=== PATIENT | male | born 1965 | race Caucasian/White ===

== ENCOUNTER 2019-05-27 10:03 | Inpatient (IN) | payer SELFPAY ==
[2019-05-27] VITALS (7 sets, daily range): BP systolic 124–138; BP diastolic 72–89; PULSE 102–136; RESP 18–24; TEMP 37.1–38.7; O2SAT 92–96; BMI 40.8; BMI 157.1
--- NOTE | 2019-05-27 10:12 | XRR_ITS ---
PROCEDURE INFORMATION: Exam: XR Chest, 1 View Exam date and time: 05/27/2019 11:00 AM Age: 54 years old Clinical indication: Cough and shortness of breath TECHNIQUE: Imaging protocol: XR of the chest Views: 1 view. COMPARISON: XR CHEST 05/06/2017 9:57 PM FINDINGS: Lungs: There is bilateral central bronchial wall thickening and haziness. Prominence of the interstitial markings in both lungs. No focal peripheral lung consolidation, air bronchogram formation, or silhouette sign. Pleural space: No pleural effusion or pneumothorax. Heart/Mediastinum: The cardiac silhouette is not enlarged. The mediastinal contours are normal. Bones/joints: No acute osseous abnormality. XR/XR chest 1V portable [id number] IMPRESSION: Bronchial/interstitial edema or inflammation.
--- NOTE | 2019-05-27 10:12 | ECG_ITS ---
Measurements Intervals [place] Rate: 103 P: 36 KS: 173 QRS: -35 QRSD: 94 T: 51 QT: 393 QTc: 515 SINUS TACHYCARDIA WITH FREQUENT SUPRAVENTRICULAR PREMATURE COMPLEXES MARKED LEFT AXIS DEVIATION [QRS AXIS < -30] MODERATE VOLTAGE CRITERIA FOR LVH, CONSIDER NORMAL VARIANT [MEETS CRITERIA IN ONE OF: R(aVL), S(V1), R(V5), R(V5/V6)+S(V1)] NONSPECIFIC T-WAVE ABNORMALITY Compared to ECG 05/06/2017 19:50:59 T-wave abnormality now present Sinus rhythm no longer present Electronically Signed On 05-27-2019 18:33:32 [employer] SURGE[employer] by Colin Johnson M.[email or web address]
[2019-05-27 10:32] LABS: Basophils # 0.1 10^3/uL (0.0-0.1); Basophils % 0.9 %; Eosinophils # 0.2 10^3/uL (0.0-0.8); Eosinophils % 2.6 %; Hematocrit 34.2 % (42.0-52.0); Hemoglobin 10.1 g/dL (11.7-16.6); Lymphocytes # 0.9 10^3/uL (0.8-4.8); Lymphocytes % 15.5 %; Mean Corpuscular HGB Conc 29.5 g/dL (30.0-36.0); Mean Corpuscular Hemoglobin 22.4 pg (28.0-34.0); Mean Corpuscular Volume 75.8 fL (80-94); Mean Platelet Volume 11.8 fL (7.4-10.4); Monocytes # 0.5 10^3/uL (0.2-0.9); Monocytes % 7.7 %; Neutrophils # 4.2 10^3/uL (1.8-7.7); Nucleated Red Blood Cells % 0 %; Platelet Count 133 10^3/cmm (130-400); Red Blood Count 4.51 10^6/uL (4.1-5.3); Red Cell Distribution Width 18.8 % (12.1-15.1); White Blood Count 5.8 10^3/uL (4.0-10.0)
--- NOTE | 2019-05-27 10:37 | ED_ITS ---
Entered by Rob Burks, acting as scribe for Dell Harris DO May 27, 2019 10:03 HPI - Chest Pain General: Chief Complaint: Chest Pain Stated Complaint: SOB,Chest pressure Time Seen by Provider: 05/27/19 10:46 History of Present Illness: HPI narrative: 54 yo male presents with chest pain. Pt states that he leg spasms along with the chest pain. Pt states that he feels slightly short of breath. Pt states that he has a stress test scheduled for Saturday. 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 Pt states that the Physician failed him because the Physician thinks that he has blocked arteries. Pt states that he has been under a lot of stress for the past month. MD complaint: chest pain Associated symptoms: Reports dyspnea; Deny abdominal pain, fever(s), nausea, palpitations, syncope or vomiting Review of Systems Const: Reports: malaise; Denies: fever, chills, body aches, fatigue or night sweats Eyes: Denies: change in vision or blurry vision ENMT: Denies: throat pain, oral sores/lesions, dental pain, nasal discharge or nasal congestion Card: Reports: chest pain; Denies: palpitations, irregular heart rhythm, edema, syncope, shortness of breath on exertion, shortness of breath when lying down or leg pain with exertion Resp: Reports: shortness of breath; Denies: productive cough, non-productive cough or wheezing GI: Denies: abdominal pain, nausea, vomiting, vomiting blood, coffee grounds in vomit, difficulty swallowing, heartburn/indigestion, diarrhea, constipation, cramping, blood in stool or black tarry stool : Denies: flank pain, difficulty urinating, painful urination, urinary frequency, urinary urgency, urinary incontinence or blood in urine Musc: Denies: neck pain, back pain, extremity pain, extremity swelling, joint pain or joint swelling Skin/Breast: Denies: rash, itching or redness Neuro: Denies: headache, numbness in extremities, weakness in extremities, changes in sensation, lack of coordination, difficulty walking, frequent falls, dizziness, vertigo or confusion Psych: Denies: anxiety, depression, loss of interest, visual hallucinations, auditory hallucinations, suicidal ideation or homicidal ideation Endo: Denies: excessive urination, excessive thirst, tired all the time or cold intolerance Max/Lymph: Denies: easy bruising, easy bleeding, petechiae, enlarged lymph nodes or tender lymph nodes PFSH ED PFSH: Statuses (acute, chronic, etc) shown below reflect problem list status as previously entered and may not be historically accurate Medical History (Updated 06/01/19 @ 10:05 by Dell Harris DO) Angioedema (Acute) Diabetes (Acute) Hyperlipidemia (Acute) Hypertension (Acute) Psoriasis (Acute) Surgical History H/O knee surgery (Acute) Hx of cardiac cath (Acute) Social History Smoking and tobacco status: never smoked Physical Exam Const: COMMON NORMALS: average body habitus, oriented x3 and alert GENERAL APPEARANCE: cooperative, comfortable, well kempt and well developed NUTRITIONAL APPEARANCE: obese ORIENTATION/CONSCIOUSNESS: Yes awake, Yes oriented to person and Yes oriented to place HENMT: COMMON NORMALS: normocephalic, head/scalp atraumatic, EAC's normal, TM's normal bilaterally, external nose normal, moist oral mucous membranes and oropharynx normal HEAD & SCALP: normocephalic and atraumatic NOSE: external nose normal EXTERNAL AUDITORY CANAL: EAC's normal TYMPANIC MEMBRANE: TM's normal bilaterally MOUTH: oral and palatal mucosa normal, lip normal and tongue normal THROAT: posterior oropharynx normal and tonsils normal Eye: COMMON NORMALS: PERRL, EOMs intact bilaterally, conjunctivae normal and no scleral icterus CONJUNCTIVA: Yes conjunctivae normal PUPIL: Yes PERRL Neck/C-Spine: COMMON NORMALS: full ROM, no lymphadenopathy, supple, no meningeal signs and thyroid normal THYROID: thyroid normal and asymmetrical Lymph: LYMPHATIC: no lymphadenopathy noted Resp: COMMON NORMALS: normal respiratory effort, no retractions, no use of accessory muscles and clear to auscultation bilaterally AUSCULTATION: clear to auscultation bilaterally Cardio: COMMON NORMALS: regular rate and regular rhythm RATE: regular rate RHYTHM: regular rhythm HEART SOUNDS: no murmurs GI: COMMON NORMALS: normal to inspection, nondistended, normoactive bowel sounds, soft to palpation and no hepatosplenomegaly PALPATION: Yes soft and Yes no hepatosplenomegaly : COMMON NORMALS: Yes no CVA tenderness BLADDER/KIDNEY EXAM: Yes no CVA tenderness Back/Pelvis: COMMON NORMALS: no CVA tenderness LUMBAR SPINE/LOWER BACK: Yes normal to inspection Extremity: COMMON NORMALS: no clubbing, cyanosis or edema, no calf tenderness and no pedal edema Neuro: COMMON NORMALS: oriented x3 SENSORIUM/ORIENTATION: Yes alert, Yes oriented to person and Yes oriented to place MENINGEAL SIGNS: Yes no m eningeal signs Psych: APPEARANCE: Yes well kempt Skin: COMMON NORMALS: no rashes or lesions noted and skin turgor normal GENERAL SKIN EXAM: no rashes or lesions noted and turgor normal Course ED course: Initially plan admitting the patient because of his heart score being high and with his episodes of chest discomfort. We were planning to admit him for rule out. While he was awaiting a room to be transferred to on [facility] he went into A. fib with RVR and was started on Cardizem. I called Dr. Wayne back and informed her. I suspect some of these episodes are due to this intermittent atrial fibrillation will admit him continue the rule out but will also need further evaluation medication for rate control. Vital Signs: Vital signs: Vital Signs Temperature 98.9 F 05/30/19 07:08 Pulse Rate 77 05/30/19 09:45 Respiratory Rate 18 05/30/19 09:09 Blood Pressure 138/80 05/30/19 12:55 Pulse Oximetry 93 05/30/19 09:49 MDM - Chest Pain Lab Data: Labs: Lab Results 05/27/19 05/27/19 05/27/19 Range/Units 10:24 10:24 10:24 WBC 5.8 (4.0-10.0) 10^3/ uL RBC 4.51 (4.1-5.3) 10^6/u L Hgb 10.1 L (11.7-16.6) g/dL Hct 34.2 L (42.0-52.0) % MCV 75.8 L (80-94) fL MCH 22.4 L (28.0-34.0) pg MCHC 29.5 L (30.0-36.0) g/dL RDW 18.8 H (12.1-15.1) % Plt Count 133 (130-400) 10^3/c mm MPV 11.8 H (7.4-10.4) fL Neut % (Auto) 73.0 % Lymph % (Auto) 15.5 % Dorado % (Auto) 7.7 % Eos % (Auto) 2.6 % Baso % (Auto) 0.9 % Neut # (Auto) 4.2 (1.8-7.7) 10^3/u L Lymph # (Auto) 0.9 (0.8-4.8) 10^3/u L [place] # (Auto) 0.5 (0.2-0.9) 10^3/u L Eos # (Auto) 0.2 (0.0-0.8) 10^3/u L Baso # (Auto) 0.1 (0.0-0.1) 10^3/u L Nucleated RBC % (a uto) 0 % Nucleated RBCs # 0.0 /100WBC Sodium 140 (136-145) mmol/L Potassium 4.0 (3.5-5.1) mmol/L Chloride 101 (98-107) mmol/L Carbon Dioxide 28 (22-29) mmol/L Anion Gap 15.0 (5-19) BUN 13 (6-20) mg/dL Creatinine 0.8 (0.7-1.2) mg/dL GFR Calculation 101.1 (90-130) mL/min Glucose 136 H (74-109) mg/dL POC Glucose (70-110) mg/dL Estimat Average Gl ucose Hemoglobin A1c (4.0-6.0) % Calcium 8.7 (8.5-10.5) mg/dL Total Bilirubin 0.6 (0.15-1.2) mg/dL AST 42 H (0-40) U/L ALT 25 (0-41) U/L Alkaline Phosphata se 189 H (40-130) IU/L Troponin I 6 Hour (0-15) ng/L Troponin I Hi Sens Del (0-12) ng/L Troponin T Baselin e 16 H (0-15) ng/mL Troponin T 120 Min lummi (0-15) ng/mL Delta Troponin T (0-10) ABS# NT-Pro-B Natriuret Pep (0-125) pg/mL Total Protein 7.6 (6.6-8.7) g/dL Albumin 3.5 (3.5-5.2) g/dL Globulin 4.1 (1.3-4.6) g/dL Triglycerides (0-150) mg/dL Cholesterol (0-200) mg/dL LDL Cholesterol, C alc (50-129) mg/dL HDL Cholesterol (60-100) mg/dL LDL/HDL Ratio (0.00-3.22) RATI O Cholesterol/HDL Ra tom (1.0-5.00) mg/dL TSH (0.27-4.20) uIU/ mL Urine Color (Yellow) Urine Appearance (CLEAR) Urine pH (5-7) Ur Specific Gravit y (1.005-1.030) Urine Protein (Negative) Urine Glucose (UA) (Normal) Urine Ketones (Negative) Urine Occult Blood (Negative) Urine Nitrate (Negative) Urine Bilirubin (NEGATIVE) Urine Urobilinogen (Negative) mg/dL Ur Leukocyte Jaye ase (Negative) Urine RBC (0-2) /hpf Urine WBC (0-5) /hpf Ur Squamous Epith Cells (0-5) Urine Bacteria (NONE) Urine Opiates Scre en (Negative) ng/mL Ur Barbiturates Sc reen (Negative) ng/mL Ur Phencyclidine S crn (Negative) ng/mL Ur Amphetamines Sc reen (Negative) ng/mL U Benzodiazepines Scrn (Negative) ng/mL Urine Cocaine Scre en (Negative) ng/mL U Marijuana (THC) Screen (Negative) ng/mL Ethyl Alcohol (0-10) mg/dL Hepatitis A IgM Ab (Nonreactive) Hep Bs Antigen (Nonreactive) Hep Bs Antibody (0-8.5) Hep B Core Total A b (Nonreactive) Hepatitis C Antibo dy (Nonreactive) HIV 1&2 Ab & HIV 1 Ag (Non-Reactiv) HIV 1&2 Antibody (Non-Reactiv) Influenza Type A A g (Negative) POC Influenza B Ag (Negative) 05/27/19 05/27/19 05/27/19 Range/Units 10:24 10:24 10:24 WBC (4.0-10.0) 10^3/ uL RBC (4.1-5.3) 10^6/u L Hgb (11.7-16.6) g/dL Hct (42.0-52.0) % MCV (80-94) fL MCH (28.0-34.0) pg MCHC (30.0-36.0) g/dL RDW (12.1-15.1) % Plt Count (130-400) 10^3/c mm MPV (7.4-10.4) fL Neut % (Auto) % Lymph % (Auto) % [place] % (Auto) % Eos % (Auto) % Baso % (Auto) % Neut # (Auto) (1.8-7.7) 10^3/u L Lymph # (Auto) (0.8-4.8) 10^3/u L [place] # (Auto) (0.2-0.9) 10^3/u L Eos # (Auto) (0.0-0.8) 10^3/u L Baso # (Auto) (0.0-0.1) 10^3/u L Nucleated RBC % (a uto) % Nucleated RBCs # /100WBC Sodium (136-145) mmol/L Potassium (3.5-5.1) mmol/L Chloride (98-107) mmol/L Carbon Dioxide (22-29) mmol/L Anion Gap (5-19) BUN (6-20) mg/dL Creatinine (0.7-1.2) mg/dL GFR Calculation (90-130) mL/min Glucose (74-109) mg/dL POC Glucose (70-110) mg/dL Estimat Average Gl ucose 160 Hemoglobin A1c 7.2 H (4.0-6.0) % Calcium (8.5-10.5) mg/dL Total Bilirubin (0.15-1.2) mg/dL AST (0-40) U/L ALT (0-41) U/L Alkaline Phosphata se (40-130) IU/L Troponin I 6 Hour (0-15) ng/L Troponin I Hi Sens Del (0-12) ng/L Troponin T Baselin e (0-15) ng/mL Troponin T 120 Min lummi (0-15) ng/mL Delta Troponin T (0-10) ABS# NT-Pro-B Natriuret Pep 230 H (0-125) pg/mL Total Protein (6.6-8.7) g/dL Albumin (3.5-5.2) g/dL Globulin (1.3-4.6) g/dL Triglycerides 69 (0-150) mg/dL Cholesterol 130 (0-200) mg/dL LDL Cholesterol, C alc 55 (50-129) mg/dL HDL Cholesterol 61 (60-100) mg/dL LDL/HDL Ratio 0.90 (0.00-3.22) RATI O Cholesterol/HDL Ra tom 2.13 (1.0-5.00) mg/dL TSH (0.27-4.20) uIU/ mL Urine Color (Yellow) Urine Appearance (CLEAR) Urine pH (5-7) Ur Specific Gravit y (1.005-1.030) Urine Protein (Negative) Urine Glucose (UA) (Normal) Urine Ketones (Negative) Urine Occult Blood (Negative) Urine Nitrate (Negative) Urine Bilirubin (NEGATIVE) Urine Urobilinogen (Negative) mg/dL Ur Leukocyte Jaye ase (Negative) Urine RBC (0-2) /hpf Urine WBC (0-5) /hpf Ur Squamous Epith Cells (0-5) Urine Bacteria (NONE) Urine Opiates Scre en (Negative) ng/mL Ur Barbiturates Sc reen (Negative) ng/mL Ur Phencyclidine S crn (Negative) ng/mL Ur Amphetamines Sc reen (Negative) ng/mL U Benzodiazepines Scrn (Negative) ng/mL Urine Cocaine Scre en (Negative) ng/mL U Marijuana (THC) Screen (Negative) ng/mL Ethyl Alcohol (0-10) mg/dL Hepatitis A IgM Ab (Nonreactive) Hep Bs Antigen (Nonreactive) Hep Bs Antibody (0-8.5) Hep B Core Total A b (Nonreactive) Hepatitis C Antibo dy (Nonreactive) HIV 1&2 Ab & HIV 1 Ag (Non-Reactiv) HIV 1&2 Antibody (Non-Reactiv) Influenza Type A A g (Negative) POC Influenza B Ag (Negative) 05/27/19 05/27/19 05/27/19 Range/Units 10:24 12:40 12:40 WBC (4.0-10.0) 10^3/ uL RBC (4.1-5.3) 10^6/u L Hgb (11.7-16.6) g/dL Hct (42.0-52.0) % MCV (80-94) fL MCH (28.0-34.0) pg MCHC (30.0-36.0) g/dL RDW (12.1-15.1) % Plt Count (130-400) 10^3/c mm MPV (7.4-10.4) fL Neut % (Auto) % Lymph % (Auto) % [place]ado % (Auto) % Eos % (Auto) % Baso % (Auto) % Neut # (Auto) (1.8-7.7) 10^3/u L Lymph # (Auto) (0.8-4.8) 10^3/u L [place] # (Auto) (0.2-0.9) 10^3/u L Eos # (Auto) (0.0-0.8) 10^3/u L Baso # (Auto) (0.0-0.1) 10^3/u L Nucleated RBC % (a uto) % Nucleated RBCs # /100WBC Sodium (136-145) mmol/L Potassium (3.5-5.1) mmol/L Chloride (98-107) mmol/L Carbon Dioxide (22-29) mmol/L Anion Gap (5-19) BUN (6-20) mg/dL Creatinine (0.7-1.2) mg/dL GFR Calculation (90-130) mL/min Glucose (74-109) mg/dL POC Glucose (70-110) mg/dL Estimat Average Gl ucose Hemoglobin A1c (4.0-6.0) % Calcium (8.5-10.5) mg/dL Total Bilirubin (0.15-1.2) mg/dL AST (0-40) U/L ALT (0-41) U/L Alkaline Phosphata se (40-130) IU/L Troponin I 6 Hour (0-15) ng/L Troponin I Hi Sens Del (0-12) ng/L Troponin T Baselin e (0-15) ng/mL Troponin T 120 Min lummi 15.65 H (0-15) ng/mL Delta Troponin T -0.35 L (0-10) ABS# NT-Pro-B Natriuret Pep (0-125) pg/mL Total Protein (6.6-8.7) g/dL Albumin (3.5-5.2) g/dL Globulin (1.3-4.6) g/dL Triglycerides (0-150) mg/dL Cholesterol (0-200) mg/dL LDL Cholesterol, C alc (50-129) mg/dL HDL Cholesterol (60-100) mg/dL LDL/HDL Ratio (0.00-3.22) RATI O Cholesterol/HDL Ra tom (1.0-5.00) mg/dL TSH 2.38 (0.27-4.20) uIU/ mL Urine Color (Yellow) Urine Appearance (CLEAR) Urine pH (5-7) Ur Specific Gravit y (1.005-1.030) Urine Protein (Negative) Urine Glucose (UA) (Normal) Urine Ketones (Negative) Urine Occult Blood (Negative) Urine Nitrate (Negative) Urine Bilirubin (NEGATIVE) Urine Urobilinogen (Negative) mg/dL Ur Leukocyte Jaye ase (Negative) Urine RBC (0-2) /hpf Urine WBC (0-5) /hpf Ur Squamous Epith Cells (0-5) Urine Bacteria (NONE) Urine Opiates Scre en (Negative) ng/mL Ur Barbiturates Sc reen (Negative) ng/mL Ur Phencyclidine S crn (Negative) ng/mL Ur Amphetamines Sc reen (Negative) ng/mL U Benzodiazepines Scrn (Negative) ng/mL Urine Cocaine Scre en (Negative) ng/mL U Marijuana (THC) Screen (Negative) ng/mL Ethyl Alcohol < 10 (0-10) mg/dL Hepatitis A IgM Ab (Nonreactive) Hep Bs Antigen (Nonreactive) Hep Bs Antibody (0-8.5) Hep B Core Total A b (Nonreactive) Hepatitis C Antibo dy (Nonreactive) HIV 1&2 Ab & HIV 1 Ag (Non-Reactiv) HIV 1&2 Antibody (Non-Reactiv) Influenza Type A A g (Negative) POC Influenza B Ag (Negative) 05/27/19 05/27/19 05/27/19 Range/Units 16:22 20:16 20:35 WBC (4.0-10.0) 10^3/ uL RBC (4.1-5.3) 10^6/u L Hgb (11.7-16.6) g/dL Hct (42.0-52.0) % MCV (80-94) fL MCH (28.0-34.0) pg MCHC (30.0-36.0) g/dL RDW (12.1-15.1) % Plt Count (130-400) 10^3/c mm MPV (7.4-10.4) fL Neut % (Auto) % Lymph % (Auto) % [place] % (Auto) % Eos % (Auto) % Baso % (Auto) % Neut # (Auto) (1.8-7.7) 10^3/u L Lymph # (Auto) (0.8-4.8) 10^3/u L [place] # (Auto) (0.2-0.9) 10^3/u L Eos # (Auto) (0.0-0.8) 10^3/u L Baso # (Auto) (0.0-0.1) 10^3/u L Nucleated RBC % (a uto) % Nucleated RBCs # /100WBC Sodium (136-145) mmol/L Potassium (3.5-5.1) mmol/L Chloride (98-107) mmol/L Carbon Dioxide (22-29) mmol/L Anion Gap (5-19) BUN (6-20) mg/dL Creatinine (0.7-1.2) mg/dL GFR Calculation (90-130) mL/min Glucose (74-109) mg/dL POC Glucose 322 (70-110) mg/dL Estimat Average Gl ucose Hemoglobin A1c (4.0-6.0) % Calcium (8.5-10.5) mg/dL Total Bilirubin (0.15-1.2) mg/dL AST (0-40) U/L ALT (0-41) U/L Alkaline Phosphata se (40-130) IU/L Troponin I 6 Hour 19.68 H (0-15) ng/L Troponin I Hi Sens Del 3.68 (0-12) ng/L Troponin T Baselin e (0-15) ng/mL Troponin T 120 Min lummi (0-15) ng/mL Delta Troponin T (0-10) ABS# NT-Pro-B Natriuret Pep (0-125) pg/mL Total Protein (6.6-8.7) g/dL Albumin (3.5-5.2) g/dL Globulin (1.3-4.6) g/dL Triglycerides (0-150) mg/dL Cholesterol (0-200) mg/dL LDL Cholesterol, C alc (50-129) mg/dL HDL Cholesterol (60-100) mg/dL LDL/HDL Ratio (0.00-3.22) RATI O Cholesterol/HDL Ra tom (1.0-5.00) mg/dL TSH (0.27-4.20) uIU/ mL Urine Color (Yellow) Urine Appearance (CLEAR) Urine pH (5-7) Ur Specific Gravit y (1.005-1.030) Urine Protein (Negative) Urine Glucose (UA) (Normal) Urine Ketones (Negative) Urine Occult Blood (Negative) Urine Nitrate (Negative) Urine Bilirubin (NEGATIVE) Urine Urobilinogen (Negative) mg/dL Ur Leukocyte Jaye ase (Negative) Urine RBC (0-2) /hpf Urine WBC (0-5) /hpf Ur Squamous Epith Cells (0-5) Urine Bacteria (NONE) Urine Opiates Scre en (Negative) ng/mL Ur Barbiturates Sc reen (Negative) ng/mL Ur Phencyclidine S crn (Negative) ng/mL Ur Amphetamines Sc reen (Negative) ng/mL U Benzodiazepines Scrn (Negative) ng/mL Urine Cocaine Scre en (Negative) ng/mL U Marijuana (THC) Screen (Negative) ng/mL Ethyl Alcohol (0-10) mg/dL Hepatitis A IgM Ab Non-reactive (Nonreactive) Hep Bs Antigen Non-reactive (Nonreactive) Hep Bs Antibody 3.5 (0-8.5) Hep B Core Total A b Non-reactive (Nonreactive) Hepatitis C Antibo dy Non-reactive (Nonreactive) HIV 1&2 Ab & HIV 1 Ag (Non-Reactiv) HIV 1&2 Antibody (Non-Reactiv) Influenza Type A A g (Negative) POC Influenza B Ag (Negative) 05/27/19 05/27/19 05/27/19 Range/Units 20:35 20:45 20:45 WBC (4.0-10.0) 10^3/ uL RBC (4.1-5.3) 10^6/u L Hgb (11.7-16.6) g/dL Hct (42.0-52.0) % MCV (80-94) fL MCH (28.0-34.0) pg MCHC (30.0-36.0) g/dL RDW (12.1-15.1) % Plt Count (130-400) 10^3/c mm MPV (7.4-10.4) fL Neut % (Auto) % Lymph % (Auto) % [place] % (Auto) % Eos % (Auto) % Baso % (Auto) % Neut # (Auto) (1.8-7.7) 10^3/u L Lymph # (Auto) (0.8-4.8) 10^3/u L [place] # (Auto) (0.2-0.9) 10^3/u L Eos # (Auto) (0.0-0.8) 10^3/u L Baso # (Auto) (0.0-0.1) 10^3/u L Nucleated RBC % (a uto) % Nucleated RBCs # /100WBC Sodium (136-145) mmol/L Potassium (3.5-5.1) mmol/L Chloride (98-107) mmol/L Carbon Dioxide (22-29) mmol/L Anion Gap (5-19) BUN (6-20) mg/dL Creatinine (0.7-1.2) mg/dL GFR Calculation (90-130) mL/min Glucose (74-109) mg/dL POC Glucose (70-110) mg/dL Estimat Average Gl ucose Hemoglobin A1c (4.0-6.0) % Calcium (8.5-10.5) mg/dL Total Bilirubin (0.15-1.2) mg/dL AST (0-40) U/L ALT (0-41) U/L Alkaline Phosphata se (40-130) IU/L Troponin I 6 Hour (0-15) ng/L Troponin I Hi Sens Del (0-12) ng/L Troponin T Baselin e (0-15) ng/mL Troponin T 120 Min lummi (0-15) ng/mL Delta Troponin T (0-10) ABS# NT-Pro-B Natriuret Pep (0-125) pg/mL Total Protein (6.6-8.7) g/dL Albumin (3.5-5.2) g/dL Globulin (1.3-4.6) g/dL Triglycerides (0-150) mg/dL Cholesterol (0-200) mg/dL LDL Cholesterol, C alc (50-129) mg/dL HDL Cholesterol (60-100) mg/dL LDL/HDL Ratio (0.00-3.22) RATI O Cholesterol/HDL Ra tom (1.0-5.00) mg/dL TSH (0.27-4.20) uIU/ mL Urine Color Yellow (Yellow) Urine Appearance Clear (CLEAR) Urine pH 5 (5-7) Ur Specific Gravit y 1.010 (1.005-1.030) Urine Protein Trace (Negative) Urine Glucose (UA) Norm (Normal) Urine Ketones Negative (Negative) Urine Occult Blood Neg (Negative) Urine Nitrate Negative (Negative) Urine Bilirubin Neg (NEGATIVE) Urine Urobilinogen 4 H (Negative) mg/dL Ur Leukocyte Jaye ase Negative (Negative) Urine RBC None (0-2) /hpf Urine WBC 0-4 H (0-5) /hpf Ur Squamous Epith Cells 0-4 H (0-5) Urine Bacteria Trace (NONE) Urine Opiates Scre en (Negative) ng/mL Ur Barbiturates Sc reen (Negative) ng/mL Ur Phencyclidine S crn (Negative) ng/mL Ur Amphetamines Sc reen (Negative) ng/mL U Benzodiazepines Scrn (Negative) ng/mL Urine Cocaine Scre en (Negative) ng/mL U Marijuana (THC) Screen (Negative) ng/mL Ethyl Alcohol (0-10) mg/dL Hepatitis A IgM Ab (Nonreactive) Hep Bs Antigen (Nonreactive) Hep Bs Antibody (0-8.5) Hep B Core Total A b (Nonreactive) Hepatitis C Antibo dy (Nonreactive) HIV 1&2 Ab & HIV 1 Ag Non-reactive (Non-Reactiv) HIV 1&2 Antibody Non-reactive (Non-Reactiv) Influenza Type A A g Negative (Negative) POC Influenza B Ag Negative (Negative) 05/27/19 Range/Units 20:45 WBC (4.0-10.0) 10^3/ uL RBC (4.1-5.3) 10^6/u L Hgb (11.7-16.6) g/dL Hct (42.0-52.0) % MCV (80-94) fL MCH (28.0-34.0) pg MCHC (30.0-36.0) g/dL RDW (12.1-15.1) % Plt Count (130-400) 10^3/c mm MPV (7.4-10.4) fL Neut % (Auto) % Lymph % (Auto) % [place] % (Auto) % Eos % (Auto) % Baso % (Auto) % Neut # (Auto) (1.8-7.7) 10^3/u L Lymph # (Auto) (0.8-4.8) 10^3/u L [place] # (Auto) (0.2-0.9) 10^3/u L Eos # (Auto) (0.0-0.8) 10^3/u L Baso # (Auto) (0.0-0.1) 10^3/u L Nucleated RBC % (a uto) % Nucleated RBCs # /100WBC Sodium (136-145) mmol/L Potassium (3.5-5.1) mmol/L Chloride (98-107) mmol/L Carbon Dioxide (22-29) mmol/L Anion Gap (5-19) BUN (6-20) mg/dL Creatinine (0.7-1.2) mg/dL GFR Calculation (90-130) mL/min Glucose (74-109) mg/dL POC Glucose (70-110) mg/dL Estimat Average Gl ucose Hemoglobin A1c (4.0-6.0) % Calcium (8.5-10.5) mg/dL Total Bilirubin (0.15-1.2) mg/dL AST (0-40) U/L ALT (0-41) U/L Alkaline Phosphata se (40-130) IU/L Troponin I 6 Hour (0-15) ng/L Troponin I Hi Sens Del (0-12) ng/L Troponin T Baselin e (0-15) ng/mL Troponin T 120 Min lummi (0-15) ng/mL Delta Troponin T (0-10) ABS# NT-Pro-B Natriuret Pep (0-125) pg/mL Total Protein (6.6-8.7) g/dL Albumin (3.5-5.2) g/dL Globulin (1.3-4.6) g/dL Triglycerides (0-150) mg/dL Cholesterol (0-200) mg/dL LDL Cholesterol, C alc (50-129) mg/dL HDL Cholesterol (60-100) mg/dL LDL/HDL Ratio (0.00-3.22) RATI O Cholesterol/HDL Ra tom (1.0-5.00) mg/dL TSH (0.27-4.20) uIU/ mL Urine Color (Yellow) Urine Appearance (CLEAR) Urine pH (5-7) Ur Specific Gravit y (1.005-1.030) Urine Protein (Negative) Urine Glucose (UA) (Normal) Urine Ketones (Negative) Urine Occult Blood (Negative) Urine Nitrate (Negative) Urine Bilirubin (NEGATIVE) Urine Urobilinogen (Negative) mg/dL Ur Leukocyte Jaye ase (Negative) Urine RBC (0-2) /hpf Urine WBC (0-5) /hpf Ur Squamous Epith Cells (0-5) Urine Bacteria (NONE) Urine Opiates Scre en Negative (Negative) ng/mL Ur Barbiturates Sc reen Negative (Negative) ng/mL Ur Phencyclidine S crn Negative (Negative) ng/mL Ur Amphetamines Sc reen Negative (Negative) ng/mL U Benzodiazepines Scrn Negative (Negative) ng/mL Urine Cocaine Scre en Negative (Negative) ng/mL U Marijuana (THC) Screen Negative (Negative) ng/mL Ethyl Alcohol (0-10) mg/dL Hepatitis A IgM Ab (Nonreactive) Hep Bs Antigen (Nonreactive) Hep Bs Antibody (0-8.5) Hep B Core Total A b (Nonreactive) Hepatitis C Antibo dy (Nonreactive) HIV 1&2 Ab & HIV 1 Ag (Non-Reactiv) HIV 1&2 Antibody (Non-Reactiv) Influenza Type A A g (Negative) POC Influenza B Ag (Negative) Imaging Data^: CTA Chest: Radiologist's impression: CTA OF THE CHEST WITH PULMONARY EMBOLISM PROTOCOL TECHNIQUE: High-resolution contrast enhanced CTA of the chest with coronal and sagittal reformatted images with pulmonary embolism protocol. MIP images are also reviewed. CLINICAL INFORMATION: dyspnea COMPARISON: None. DLP: 1207.[address] scans at [facility] use at least one of these dose optimization techniques: automated exposure control; mA and/or kV adjustment per patient size (includes targeted exams where dose is matched to clinical indication); or iterative reconstruction. FINDINGS: Proximal main pulmonary arteries are normal. Normal segmental and subsegmental pulmonary arteries. No evidence of pulmonary embolus. Small bilateral pleural effusions. Hazy groundglass infiltrates in the right upper lobe, right lower lobe, left hilum, and both lower lobes. Normal caliber thoracic aorta. No axillary lymphadenopathy. Correlation for pneumonitis. No focal consolidation. Prominent hilar and s ubcarinal lymph nodes largest in the right measuring 14 mm. These are nonspecific but may be reactive. Right adrenal gland is normal. Slightly cirrhotic configuration to the liver. Recommend correlation with liver function tests. Splenomegaly partially visualized. Spleen measures 20 cm [id number]. Notified Dell Harris DO at 05/27/2019 12:[address]/CT angio chest PE protcl [id number] IMPRESSION: 1. No evidence of pulmonary embolus. 2. Small bilateral pleural effusions with hazy groundglass infiltrates in both lungs. Recommend correlation for pneumonitis. 3. Slightly enlarged right greater than left hilar lymph nodes and subcarinal lymph nodes nonspecific but may be reactive. 4. Slightly cirrhotic configuration to the liver. Splenomegaly. Dictated By:Benson Dodge MD Discharge Plan Discharge Patient Disposition: Admitted As Inpatient Admit Provider: Angie Reyes Clinical Impression: Chest pain, Diabetes, Hypertension, Dyspnea, Atrial fibrillation Condition: Stable Discharge Orders: Discharge Order (Routine); Ordered 05/30/19 Ordered By: Angie Reyes Referrals: Contreras Faustin DO [Family Provider] - 4-7 days (You will have a hospital follo up with Dr. Faustin within one week. [facility] will be calling you to arrange an appointment date and time. If you don't hear from them by Saturday evening please call the office. ) Leann Valdez MD [Physician] - 7-10 days Discharge Diet: Cardiac and Low Salt Discharge Activity: Resume usual activity and Oxygen as instructed Patient Instructions: Type 2 Diabetes, Diabetes and Diet, Iron Supplements (By mouth), Metoprolol (By mouth), Acetaminophen (By mouth), Alprazolam (By mouth), Fluoxetine (By mouth), Aspirin (By mouth), Folic Acid (By mouth), Levalbuterol (By breathing), Hypertension Interventions: ED Discharge Assessment Last Done: 05/27/19 17:15 Discharge Date/Time: 05/27/19 18:11 Coding Level of Care Code ED Jukebox Checker for Chg Fwd Exam Problem Focused The documentation recorded by the Vitaliy rosas Kialy, accurately reflects the service I personally performed and the decisions made by me, Dell Harris, May 27, 2019 10:03
[2019-05-27 10:45] LABS: Alanine Aminotransferase 25 U/L (0-41); Albumin Level 3.5 g/dL (3.5-5.2); Alkaline Phosphatase 189 IU/L (40-130); Aspartate Amino Transferase 42 U/L (0-40); Blood Urea Nitrogen 13 mg/dL (6-20); Calcium 8.7 mg/dL (8.5-10.5); Carbon Dioxide 28 mmol/L (22-29); Chloride 101 mmol/L (98-107); Globulin 4.1 g/dL (1.3-4.6); Glomerular Filtration Rate 101.1 mL/min (90-130); Glucose 136 mg/dL (74-109); Sodium 140 mmol/L (136-145); Total Bilirubin 0.6 mg/dL (0.15-1.2); Total Protein 7.6 g/dL (6.6-8.7)
[2019-05-27 10:48] LABS: Troponin(5th) Baseline 16 ng/mL (0-15)
--- NOTE | 2019-05-27 11:01 | USCV_ITS ---
Chun Webster Age: 54 Gender: M : 1965 Exam Date: 05/27/2019 11:35 Ordering Phys: Dell Harris DO Technologist: Gael Rivera [place]am [place] [facility] [place]ication: SWELLING PROCEDURES: Venous duplex imaging was performed in bilateral lower extremities. The following venous structures were evaluated: common femoral vein, profunda vein, proximal portion of the greater saphenous vein, superficial femoral vein, and the popliteal vein. In addition, the posterior tibial and peroneal trunk were evaluated. FINDINGS: Normal 2-D Doppler and augmentation and compressibility throughout the lower extremity venous structures. Additional imaging through the proximal calf veins also reveals no thrombus. Limited evaluation of the greater saphenous vein is patent with no thrombus.. CONCLUSIONS No evidence of right lower extremity DVT. No evidence of left lower extremity DVT. Benson Dodge MD (Electronically Signed) Final Date: 27 May 2019 13:47 S
--- NOTE | 2019-05-27 11:01 | CT_ITS ---
WS: [id number] CTA OF THE CHEST WITH PULMONARY EMBOLISM PROTOCOL TECHNIQUE: High-resolution contrast enhanced CTA of the chest with coronal and sagittal reformatted i mages with pulmonary embolism protocol. MIP images are also reviewed. CLINICAL INFORMATION: dyspnea COMPARISON: None. DLP: 1207.[address] scans at [facility] use at least one of these dose optimization techniques: automat ed exposure control; mA and/or kV adjustment per patient size (includes targeted exams where dose is matched to clinical indication); or iterative reconstruction. FINDINGS: Proximal main pulmonary arteries are normal. Normal segmental and subsegmental pulmonary arteries. No evidence of pulmonary embolus. Small bilateral pleural effusions. Hazy groundglass infiltrates in the right upper lobe, right lower lobe, left hilum, and both lower lobes. Normal caliber thoracic aorta. No axillary lymphadenopathy. Correlation for pneumonitis. No focal consolidation. Prominent hilar and subcarinal lymph nodes large st in the right measuring 14 mm. These are nonspecific but may be reactive. Right adrenal gland is normal. Slightly cirrhotic configuration to the liver. Recommend correlation w ith liver function tests. Splenomegaly partially visualized. Spleen measures 20 cm [id number]. Notified Dell Harris DO at 05/27/2019 12:[address]/CT angio chest PE protcl [id number] IMPRESSION: 1. No evidence of pulmonary embolus. 2. Small bilateral pleural effusions with hazy groundglass infiltrates in both lungs. Recommend correlation for pneumonitis. 3. Slightly enlarged right greater than left hilar lymph nodes and subcarinal lymph nodes nonspecific but may be reactive. 4. Slightly cirrhotic configuration to the liver. Splenomegaly.
[2019-05-27] MEDS: iohexol 350 mg/mL 100 mL Btl IV ×2 (11:40→11:41)
--- NOTE | 2019-05-27 12:12 | ECG_ITS ---
Measurements Intervals [place] Rate: 97 P: 21 WI: 132 QRS: -40 QRSD: 103 T: 78 QT: 388 QTc: 494 SINUS RHYTHM WITH FREQUENT ECTOPIC PREMATURE COMPLEXES LEFT AXIS DEVIATION [QRS AXIS < -30] POSSIBLE RIGHT VENTRICULAR CONDUCTION DELAY [RSR (QR) IN V1/V2] NONSPECIFIC T-WAVE ABNORMALITY Compared to ECG 05/06/2017 19:50:59 T-wave abnormality now present Electronically Signed On 05-27-2019 18:38:11 EXPEDITION SUPERVISOR by Colin Johnson M.D. [id number]
[2019-05-27 13:00] LABS: Troponin 5 2HR 15.65 ng/mL (0-15)
[2019-05-27] MEDS: nitroglycerin 1 gm/inch oint Pkt 1 INCH TOPICAL (14:02)
[2019-05-27 14:17] LABS: Troponin 5 2HR Delta -0.35 ABS# (0-10)
--- NOTE | 2019-05-27 14:34 | PM.HP ---
Providers/Chief Complaint Admitting Physician: Angie Reyes MD Chief Complaint: SOB,Chest pressure History of Present Illness Chun Webster JR is a 54 year old male with PMH HTN, type 2 DM, psoriasis (not on rx since October 2018) who presentd with 3days of worsening shortness of breath. States that symptoms started abruptly, no apparent triggering or relieving factors, worsening over past 3 days with exertion. States that at a baseline he is able to walk 2-3 miles without any issues. Now unable to ambulate 100 yards without getting dyspneic. Orthopena+. Initially attributed his symptoms to beieng stressed as recently going through a divorce. Today started to experience retrosternal chest pressure which is also worsened with exertion. Cannot recall activity at time of onset of pain. Relieved with rest. Sick contacts+- niece has been having URI symptoms. No h/o fever. No h/o cough or URI type symptoms. Last had angiogram 10 years ago which was reportedly without abnormalities. He was scheduled for outpatient stress test this Saturday by his PCP. approximately 3 weeks ago he had a mechanical injusry to his left knee while chasing his dog and also reportedly twisting R ankle. Review of Systems General: Reports: 10 or more systems reviewed and unremarkable except in HPI and below Const: Denies: fever, chills or body aches Eyes: Denies: change in vision, blurry vision or photophobia ENMT: Reports: hoarseness; Denies: throat pain, enlarged tonsils, painful swallowing or nasal congestion Card: Reports: chest pain, shortness of breath on exertion and shortness of breath when lying down; Denies: palpitations, irregular heart rhythm, edema, swelling of feet/ankles, lightheadedness or pre-syncope Resp: Reports: shortness of breath; Denies: productive cough, non-productive cough, wheezing, stridor, pain on inspiration, change in phlegm color, coughing up blood or chest congestion GI: Denies: abdominal pain, nausea, vomiting, vomiting blood, coffee grounds in vomit, difficulty swallowing, heartburn/indigestion, diarrhea, constipation, cramping, change in stool character, blood in stool or black tarry stool : Denies: flank pain, painful urination, urinary frequency, urinary urgency, urinary hesitancy or blood in urine Musc: Denies: neck pain, back pain, extremity pain, joint swelling, joint warmth or deformity Neuro: Denies: headache, numbness in extremities, weakness in extremities, changes in sensation, difficulty walking, frequent falls, dizziness, vertigo, behavioral changes, slurred speech or seizure-like activity Psych: Reports: anxiety; Denies: depression, suicidal ideation or homicidal ideation Endo: Denies: excessive urination, excessive thirst, tired all the time, cold intolerance or hot flashes Max/Lymph: Denies: easy bruising or easy bleeding Medications/Allergies Home Medications Medication Instructions Recorded Confirmed Last Taken Type amlodipine 10 mg PO DAILY 05/27/19 05/27/19 05/26/19 History dulaglutide [Trulicity] See Rx Instructions .ROUTE .COMPLEX 05/27/19 05/27/19 05/21/19 History escitalopram oxalate [Lexapro] 20 mg PO DAILY 05/27/19 05/27/19 05/26/19 History insulin glargine [Lantus Solostar 70 unit SUBCUT BID 05/27/19 05/27/19 05/26/19 History U-100 Insulin] lisinopril-hydrochlorothiazide 2 tab PO QAM 05/27/19 05/27/19 05/26/19 History multivitamin [Multiple Vitamins] 1 tab PO DAILY 05/27/19 05/27/19 05/26/19 History omeprazole magnesium [Prilosec OTC] 20 mg PO DAILY 05/27/19 05/27/19 05/26/19 History ropinirole 1 mg PO BID 05/27/19 05/27/19 05/26/19 History sildenafil 100 mg PO DAILY PRN 05/27/19 05/27/19 Unknown History trazodone 100 mg PO BEDTIME 05/27/19 05/27/19 05/26/19 History Allergies Allergy/AdvReac Type Severity Reaction Status Date / Time No Known Allergies Allergy Unverified 05/27/19 10:59 PFSH Acute PFSH: Statuses (acute, chronic, etc) shown below reflect problem list status as previously entered and may not be historically accurate Medical History (Updated 05/27/19 @ 14:35 by Angie Reyes MD) Angioedema (Acute) Diabetes (Acute) Hyperlipidemia (Acute) Hypertension (Acute) Psoriasis (Acute) Surgical History H/O knee surgery (Acute) Hx of cardiac cath (Acute) Social History Smoking and tobacco status: never smoked Vitals/I&O/Wt Last Vital Signs Temp 98.8 F 05/27/19 10:27 Pulse 115 H 05/27/19 10:27 Resp 24 H 05/27/19 10:27 BP 138/89 05/27/19 10:27 Pulse Ox 94 05/27/19 10:27 Weight last 48 hrs Weight 144.242 kg Physical Exam Narrative: EXAM NARRATIVE: GEN: Awake, alert and oriented, lying at 45 degrees, noted to be mildly tachypneic. CVS: S1S2 N RS: CTA B/L except crackles over B/L infraaxillary areas Abd: Soft, nt/nd , bs+ TEN PIN BOWLING CENTRE MANAGER: no focal neuro deficits EXT: swelling over R foot when compared to left. Left lateral knee compartment swelling + with TTP Data : 05/27/19 10:24 05/27/19 10:24 A&P Assessment and plan (1) Chest pain: Status: Acute Code(s): R07.9 - Chest pain, unspecified (2) Dyspnea: Status: Acute Code(s): R06.00 - Dyspnea, unspecified Additional A&P Information Admit to CSU for close monitoring No acute ST-T changes on EKG to suggest AMI. Serial troponin negative x 2. No current chest pain No evidence of PE on CTA chest 02 sat 92% on 2lpm NC Noted to have B/L interstitial infiltrates which may be fluid vs pneumonitis - will check BNP Lasix 20mg iv x 1 as previously Lasix naive Will schedule for stress test in am Start 325 x 1 followed by ASA 81mg daily, start lipitor Continue anti hypertensives lisinopril-HCTZ and amlodipine ISS for DM2. Check hba1c CV echo ordered prn nitrates for chest pain check influenza swab given sick contacts to r/o viral pneumonitis albuterol 2.5 mg now followed by prn in case viral bronchitis contributing DVT ppx: lovenox Code staus: fc Attestations Medical Necessity Statement*: admit to observation for possible angina, planned for stress test in am Coding Level of Care Code Acute Corporate Development Intern for Chg Fwd Diagnoses Chest pain R07.9 Dyspnea R06.00
[2019-05-27] MEDS: FUROsemide 10 mg/mL SDV 2mL 20 MG IVP (14:48)
[2019-05-27] MEDS: aspirin 325 mg Tablet PO (14:49)
[2019-05-27] MEDS: enoxaparin 40 mg/0.4 mL Syringe SUBCUT (14:54)
[2019-05-27] MEDS: atorvastatin 40 mg Tablet PO (14:55)
--- NOTE | 2019-05-27 16:12 | ECG_ITS ---
Measurements Intervals [place] Rate: 124 P: ME: 0 QRS: 218 QRSD: 100 T: 95 QT: 349 QTc: 502 ATRIAL FIBRILLATION WITH RAPID VENTRICULAR RESPONSE WITH ABERRANT CONDUCTION OR VENTRICULAR PREMATURE COMPLEXES POSSIBLE RIGHT VENTRICULAR HYPERTROPHY [SOME/ALL OF: PROMINENT R IN V1, LATE TRANSITION, RAD, JOSE DE JESUS, SSS] MINIMAL ST DEPRESSION [0.025+ mV ST DEPRESSION] Compared to ECG 05/06/2017 19:50:59 Ventricular premature complex(es) now present Aberrant conduction of supraventricular beat(s) now present ST (T wave) deviation now present Sinus rhythm no longer present Left-axis deviation no longer present Electronically Signed On 05-27-2019 18:38:19 TUB PULLER by Colin Johnson M.D. [id number]
[2019-05-27 16:46] LABS: Troponin 5 6HR 19.68 ng/L (0-15); Troponin 5 6HR Delta 3.68 ng/L (0-12)
--- NOTE | 2019-05-27 18:14 | XR_ITS ---
WS: [id number] FOOT RIGHT TECHNIQUE: 2 views of the right foot CLINICAL INFORMATION: h/o fall, swelling COMPARISON: None. FINDINGS: No evidence of acute fracture or dislocation. Normal tarsal metatarsal alignment. Normal calcaneus. N ormal visualized talar dome. No acute findings. XR/XR foot RT 2V [id number] IMPRESSION: Normal right foot.
--- NOTE | 2019-05-27 18:14 | XR_ITS ---
WS: [id number] KNEE LEFT TECHNIQUE: 2 views of the left knee CLINICAL INFORMATION: swelling,h/o fall COMPARISON: None. FINDINGS: Moderate to advanced degenerative arthritis left knee worse in the lateral joint compartment. Soft ti ssue edema. Moderate suprapatellar effusion. Hypertrophic patella. Vascular calcification. No visuali zed fractures. XR/XR knee LT 1-2V [id number] IMPRESSION: 1. Moderate to advanced arthritis left knee with moderate suprapatellar effusi on.
[2019-05-27 18:27] LABS: Thyroid Stimulating Hormone 2.38 uIU/mL (0.27-4.20)
[2019-05-27 18:28] LABS: NT Pro B Type Natriuretic Pept 230 pg/mL (0-125); Triglycerides 69 mg/dL (0-150)
[2019-05-27 18:29] LABS: Chol HDL Ratio 2.13 mg/dL (1.0-5.00); Cholesterol 130 mg/dL (0-200); HDL Cholesterol 61 mg/dL (60-100); LDL Cholesterol Calculated 55 mg/dL (50-129)
[2019-05-27 18:53] LABS: Estmated Average Glucose 160; Hemoglobin A1C 7.2 % (4.0-6.0)
[2019-05-27] MEDS: acetaminophen 325 mg Tablet 650 MG PO (19:40)
--- NOTE | 2019-05-27 20:30 | XR_ITS ---
WS: [id number] CHEST XRAY TECHNIQUE: Portable chest. CLINICAL INFORMATION: INCREASED TEMPERATURE AND SOB COMPARISON: May 27, 2019 FINDINGS: Heart: Normal cardiac silhouette. Lungs: Scattered hazy groundglass infiltrates better visualized on the concurrent CT. Small right ple ural effusion. No focal pneumonia. Bones: Normal visualized bony structures. XR/XR chest 1V portable [id number] IMPRESSION: 1. Small right pleural effusion. 2. Patchy hazy groundglass infiltrates better visualized on the concurrent CT. No focal pneumonia.
--- NOTE | 2019-05-27 20:30 | PC.NURSE ---
Patient has current temperature of 101.6. Showing signs of increased forgetfulness since change of shift. Currently on cardizem gtt at 10ml/hr with heart rate of 102 and intermittent p-waves present. Informed Dr Lang of change in patient condition and orders were received.
[2019-05-27 20:33] LABS: Alcohol Level < 10 mg/dL (0-10)
[2019-05-27] MEDS: ropinirole 1 mg Tablet PO (20:47)
[2019-05-27 21:13] LABS: Urine Appearance Clear (CLEAR); Urine Color Yellow (Yellow)
[2019-05-27 21:14] LABS: Add Urine Culture? No; Add Urine Microscopic? YES; Bacteria Urine TRACE; Bilirubin Urine Neg (NEGATIVE); Blood Urine Neg (Negative); Glucose Urine UA Norm (Normal); Ketones Urine Negative (Negative); Leukocyte Esterase Urine Negative (Negative); Nitrate Urine Negative (Negative); Protein Urine Trace (Negative); Squamous Epithelial Cell Urine 0-4 (0-5); Urobilinogen Urine 4 mg/dL (Negative); WBC Urine 0-4 /hpf (0-5); pH Urine 5 (5-7)
[2019-05-27 21:24] LABS: Amphetamines Screen Urine Negative (Negative); Barbiturates Screen Urine Negative (Negative); Benzodiazepines Screen Urine Negative (Negative); Cocaine Screen Urine Negative (Negative); Influenza A by IFA Negative (Negative); Influenza B by IFA Negative (Negative); Opiate Screen Urine Negative (Negative); PCP Screen Urine Negative (Negative); THC Screen Urine Negative (Negative)
[2019-05-27 21:33] LABS: Glucose Point of Care 322 mg/dL (70-110)
[2019-05-27 22:11] LABS: HIV 1 & 2 Antibody Non-Reactive (Non-Reactiv); HIV 1 & 2 Antigen Non-Reactive (Non-Reactiv)
[2019-05-27 22:15] LABS: Hepatitis A Antibody IgM. Non-Reactive (Nonreactive); Hepatitis B Surface AB. 3.5 (0-8.5); Hepatitis B Surface Antigen. Non-Reactive (Nonreactive); Hepatitis C Virus Antibody Non-Reactive (Nonreactive)
[2019-05-27] MEDS: morphine 4 mg/mL SDV 1 mL 2 MG IVP (22:28)
[2019-05-27] MEDS: cefTRIAXone 1,000 MG in sodium chloride 0.9% (plus) 50 ML 100 MG IV (22:29)
[2019-05-28] VITALS (10 sets, daily range): BP systolic 115–128; BP diastolic 64–85; PULSE 77–92; RESP 12–26; TEMP 36.6–37.6; O2SAT 90–96
[2019-05-28 04:22] LABS: Basophils % 0.7 %; Eosinophils # 0.1 10^3/uL (0.0-0.8); Eosinophils % 1.8 %; Hematocrit 33.5 % (42.0-52.0); Hemoglobin 9.9 g/dL (11.7-16.6); Lymphocytes # 1.4 10^3/uL (0.8-4.8); Lymphocytes % 23.6 %; Mean Corpuscular HGB Conc 29.6 g/dL (30.0-36.0); Mean Corpuscular Hemoglobin 22.9 pg (28.0-34.0); Mean Corpuscular Volume 77.5 fL (80-94); Mean Platelet Volume 11.8 fL (7.4-10.4); Monocytes # 0.6 10^3/uL (0.2-0.9); Neutrophils # 3.9 10^3/uL (1.8-7.7); Neutrophils % 63.6 %; Nucleated Red Blood Cells % 0 %; Platelet Count 121 10^3/cmm (130-400); Red Blood Count 4.32 10^6/uL (4.1-5.3); Red Cell Distribution Width 18.8 % (12.1-15.1); White Blood Count 6.1 10^3/uL (4.0-10.0)
[2019-05-28 04:49] LABS: Anion Gap 14.3 (5-19); Blood Urea Nitrogen 15 mg/dL (6-20); Calcium 8.5 mg/dL (8.5-10.5); Carbon Dioxide 27 mmol/L (22-29); Chloride 102 mmol/L (98-107); Glomerular Filtration Rate 88.3 mL/min (90-130); Glucose 100 mg/dL (74-109); Iron 22 ug/dL (59-158); Osmolality Calculated 286 mOsm/kg (285-295); Potassium 3.3 mmol/L (3.5-5.1); Sodium 140 mmol/L (136-145)
[2019-05-28 05:04] LABS: Vitamin B12 518 pg/mL (232-1245)
--- NOTE | 2019-05-28 06:30 | PC.NURSE ---
Patient current heart rated mid 80s to low 90s and in NSR. Stopped Cardizem gtt at this time. Patient denies chest pain but still c/o increased S.O.B with exertion. Instructed patient on Lexiscan stress test. Patient verbalized understanding, however will need reinforcement of teaching.
--- NOTE | 2019-05-28 06:30 | PC.NURSE ---
STRESS TEST NOTE THERE WAS CONFUSION THIS AM WITH THE STRESS TEST BEING ORDERED 05/27/[address] SCHWAB AND THEN BEING STOPPED AT 1816 THE SAME DAY. THIS NURSE SPOKE WITH MARCIAL RN, AND ROBYN SOLANO, ON CSU AND WAS TOLD BY BOTH THAT THE STOP ORDER WAS IN ERROR AND THAT ZAHEER EVANS DOES IN FACT WANT THE LEXISCAN SESTAMIBI DONE THIS AM. THE ORDERS WERE CORRECTED BY THIS NURSE AND ODELL IN [facility] WAS NOTIFIED THAT THE PATIENT WAS PREPPED AND READY TO INJECT FOR THE RESTING IMAGES.
--- NOTE | 2019-05-28 07:00 | USCV_ITS ---
Chun Webster Age: 54 Gender: M : 1965 Exam Date: 05/28/2019 06:25 Ordering Phys: Angie Reyes MD Technologist: Jennifer Garner Exam Location: [facility] – [place] Indication: new a fib BP: 124 / 75 HR: 85 Rhythm: Sinus Technical Quality: Suboptimal MEASUREMENTS (Male / Female) Normal Values 2D ECHO LV Diastolic Diameter PLAX 5.5 cm 4.2 - 5.9 / 3.9 - 5.3 cm LV Systolic Diameter PLAX 3.8 cm IVS Diastolic Thickness 1.7 cm 0.6 - 1.0 / 0.6 - 0.9 cm IVS Systolic Thickness 2.6 cm LVPW Diastolic Thickness 1.1 cm 0.6 - 1.0 / 0.6 - 0.9 cm LVPW Systolic Thickness 2.1 cm LVOT Diameter 2.3 cm LV Ejection Fraction 2D Teich 57.4 % LV Ejection Fraction MOD 2C 59.9 % LV Ejection Fraction 2C AL 59.9 % LA Diameter 3.5 cm LA Width 4.6 cm LA Height 5.7 cm RA Width 3.8 cm RA Height 4.8 cm M-MODE LV Diastolic Diameter MM 6.6 cm 4.2 - 5.9 / 3.9 - 5.3 cm LV Systolic Diameter MM 4.9 cm LV Ejection Fraction MM Teich 50.8 % IVS Diastolic Thickness MM 1.0 cm 0.6 - 1.0 / 0.6 - 0.9 cm IVS Systolic Thickness MM 1.2 cm LVPW Diastolic Thickness MM 0.8 cm 0.6 - 1.0 / 0.6 - 0.9 cm LVPW Systolic Thickness MM 1.9 cm Aortic Annulus Diameter 4.2 cm LA Ao Ratio MM 0.8 MV E Point Septal Separation 0.8 cm DOPPLER AV Peak Velocity 147.0 cm/s LVOT Peak Velocity 95.0 cm/s AV Area Cont Eq vti 3.0 cm squared AV Area Cont Eq pk 2.6 cm squared MV Peak Velocity 143.0 cm/s MV Area PHT 4.9 cm squared Mitral E to A Ratio 2.9 MV E' Velocity 11.0 cm/s Mitral E to MV E' Ratio 12.2 Mitral E to LV E' Lateral Ratio 9.2 Mitral E to LV E' Septal Ratio 18.0 TR Peak Velocity 114.0 cm/s TR Peak Gradient 5.2 mmHg Right Atrial Pressure 3.0 mmHg Pulmonary Artery Systolic Pressu 8.2 mmHg PV Peak Velocity 106.0 cm/s RV Acceleration Time 0.1 s FINDINGS Left Ventricle Normal left ventricular size, systolic function and wall thickness, with no regional wall motion abnormalities. Grade II/IV diastolic dysfunction, moderately elevated filling pressures. Left ventricular ejection fraction is estimated at 55 %. Right Ventricle Normal right ventricular size and systolic function. Normal right ventricular systolic pressure. Right Atrium The right atrium is normal in size. Left Atrium Mildly increased left atrial size. Mitral Valve Structurally normal mitral valve without significant stenosis or prolapse. There is no mitral regurgitation. Aortic Valve Structurally normal aortic valve without significant sclerosis or stenosis. There is no aortic regurgitation. Tricuspid Valve Structurally normal tricuspid valve. Trace tricuspid valve regurgitation. Pulmonic Valve Pulmonic valve not well visualized. Pericardium Normal pericardium without effusion. Aorta Normal ascending aorta dimension. CONCLUSIONS Normal left ventricular size, systolic function and wall thickness, with no regional wall motion abnormalities. Grade II/IV diastolic dysfunction, moderately elevated filling pressures. Left ventricular ejection fraction is estimated at 55 %. Mildly increased left atrial size. There are no prior echocardiogram studies to compare. Dr. Daryn Benitez MD (Electronically Signed) Final Date: 28 May 2019 10:57 S
--- NOTE | 2019-05-28 07:58 | SUR.PREOP ---
Patient unable to tolerate the nuclear scans. Unable to lie flat on the camera. Notified by nuclear medicine department. Patient returned to CSU. Reported off to Marielos CARLSON. Test cancelled at this point.
[2019-05-28] MEDS: amlodipine 10 mg Tablet PO (08:55)
[2019-05-28] MEDS: aspirin 81 mg EC Tablet PO (08:55)
[2019-05-28] MEDS: escitalopram 10 mg Tablet 20 MG PO (08:56)
[2019-05-28] MEDS: metoprolol tartrate 25 mg Tablet PO ×2 (08:57→17:43)
[2019-05-28] MEDS: pantoprazole DR 40 mg Tablet PO (08:57)
[2019-05-28] MEDS: ropinirole 1 mg Tablet PO ×2 (08:58→17:43)
[2019-05-28] MEDS: morphine 4 mg/mL SDV 1 mL 2 MG IVP (08:59)
[2019-05-28 12:08] LABS: Glucose Point of Care 222 mg/dL (70-110)
--- NOTE | 2019-05-28 12:45 | PC.CHAP ---
Pastoral Care Encounter/Spiritual Assessment Type of Contact [] Declined esl tutor visit [] Patient/Family/Request visit [] Outpatient visit [] Follow-up visit [] Physician referral [] Code/Alert [x] Routine visit [] Staff referral [] Actively dying [] Patient sleeping [] Family support [] [] Out of room [] Palliative care [] [] Receiving care in room [] Pre-surgical visit [] Trauma [] Long length of stay [] ICU visit [] Other: Relational/Emotional Strength [x] Patient feels connected with others/family/visitors/staff [] Distress [] Loneliness/isolation [] Abandonment Spirituality of Patient [] Person of Sara [] Attends Congregation of their Sara [x] Believes in Prayer [] Reads Bible or Buddhist materials [] There are Spiritual issues to be addressed Tipping Machine Operator Automatic Interventions [x] Prayer [x] Active listening [x] Non-anxious presence [x] Spiritual/emotional support [] Crisis/trauma care [] Spiritual counseling [] Bereavement support [] Provided bereavement packet [] Provided Bible/devotional materials [] Provided toy/stuffed animal, coloring book to patient or family member [] Provided Communion [] Anointing/[place] [] Salvation [x] Completed spiritual assessment [] Other: Impact on Illness or Injury [] Angry [] Fearful [] Anxious [] Often cries [] Exhaustion [] Unable to work [] Unable to attend zoroastrianism [] Unable to walk/stand [] Unable to read [] Unable to drive [] Unable to eat/drink [] Unable to sleep [] Unable to be with family [] Patient intubated [] Other: Summary Patient Patient was resting and ready to go home. Time spent with patient 5 minutes
[2019-05-28] MEDS: enoxaparin 40 mg/0.4 mL Syringe SUBCUT (15:16)
[2019-05-28] MEDS: acetaminophen 325 mg Tablet 650 MG PO (15:30)
--- NOTE | 2019-05-28 15:41 | PM.PN ---
Subjective Subjective: Interval history: Patient spiked a fever to one 1.7 yesterday. Also developed A. fib. He is currently off of Cardizem drip and heart rate is well controlled at around 80 bpm. Metoprolol was added. T-max today is 99.7. He still reports shortness of breath. Stress test was canceled because of the above events. He does not like getting nebulizations and therefore has not been asking for it. Importance of nebulizer stressed today. Medications: Reviewed: Yes Vitals/I&O/Wt Last Vital Signs Temp 99.7 F H 05/28/19 15:09 Pulse 88 05/28/19 15:09 Resp 19 H 05/28/19 15:09 BP 122/79 05/28/19 15:09 Pulse Ox 94 05/28/19 15:09 05/28/19 05/28/19 05/28/19 06:59 14:59 22:59 Intake Total 359.084 / 633.250 240 / 240 Output Total 350 / 1750 200 / 200 Balance 9.084 / -1116.750 40 / 40 Weight last 48 hrs Weight 152.815 kg Weight 154.221 kg Weight 144.242 kg Physical Exam Narrative: EXAM NARRATIVE: GEN: Awake, alert and oriented, no acute distress CVS: S1S2 N RS: Bilateral scattered wheezing all areas. Abd: Soft, nt/nd , bs+ APPLIANCES SAMPLE MAKER: no focal neuro deficits Data : 05/28/19 03:30 05/28/19 03:30 Micro: Microbiology 05/27/19 20:40 Blood Culture - Preliminary Blood SPECIMEN COLLECTED 05/27/19 20:35 Blood Culture - Preliminary Blood SPECIMEN COLLECTED A&P Assessment and plan (1) Chest pain: Status: Acute Code(s): R07.9 - Chest pain, unspecified (2) Dyspnea: Status: Acute Code(s): R06.00 - Dyspnea, unspecified (3) Bronchitis: Status: Acute Code(s): J40 - Bronchitis, not specified as acute or chronic (4) Atrial fibrillation: Status: Acute Code(s): I48.91 - Unspecified atrial fibrillation Additional A&P Information Continue close monitoring. Patient is currently in sinus rhythm on telemetry. Heart rate has been around [address]-T changes on EKG to suggest AMI. Serial troponin negative x 2. No current chest pain. No evidence of PE on CTA chest 02 sat 92% on 2lpm NC Noted to have B/L interstitial infiltrates which may be fluid vs pneumonitis. Given overall clinical picture now with also fevers and wheezing more likely to be consistent with bronchitis overall picture. Change nebulization to levoalbuterol as may be better tolerated. Will schedule for stress test when more stable ASA 81mg daily,continue lipitor Continue anti hypertensives lisinopril-HCTZ and amlodipine ISS for DM2. CV echo gr 2 diastolic dysfunction prn nitrates for chest pain influenza negative DVT ppx: lovenox Code staus: fc Attestations Medical Necessity Statement*: awaiting optimization of respiratory sttaus Coding Level of Care Code Acute Radio Journalist for Shreya Fwbharti Diagnoses Chest pain R07.9 Dyspnea R06.00 Bronchitis J40 Atrial fibrillation I48.91
[2019-05-28 16:59] LABS: Glucose Point of Care 200 mg/dL (70-110)
[2019-05-28] MEDS: levalbuterol 1.25 mg/3 mL Neb INHALATION (20:27)
[2019-05-28] MEDS: cefTRIAXone 1,000 MG in sodium chloride 0.9% (plus) 50 ML 100 MG IV (20:36)
[2019-05-28 21:42] LABS: Glucose Point of Care 169 mg/dL (70-110)
[2019-05-29] VITALS (12 sets, daily range): BP systolic 111–142; BP diastolic 62–90; PULSE 78–91; RESP 16–24; TEMP 36.6–37.4; O2SAT 89–93
[2019-05-29 04:14] LABS: Basophils # 0.1 10^3/uL (0.0-0.1); Basophils % 0.8 %; Eosinophils # 0.1 10^3/uL (0.0-0.8); Eosinophils % 1.6 %; Hematocrit 35.2 % (42.0-52.0); Hemoglobin 10.2 g/dL (11.7-16.6); Lymphocytes # 1.8 10^3/uL (0.8-4.8); Lymphocytes % 20.5 %; Mean Corpuscular Hemoglobin 22.9 pg (28.0-34.0); Mean Corpuscular Volume 79.1 fL (80-94); Mean Platelet Volume 12.1 fL (7.4-10.4); Monocytes # 0.8 10^3/uL (0.2-0.9); Monocytes % 9.2 %; Neutrophils % 67.6 %; Nucleated Red Blood Cells % 0 %; Platelet Count 129 10^3/cmm (130-400); Red Blood Count 4.45 10^6/uL (4.1-5.3); Red Cell Distribution Width 18.7 % (12.1-15.1); White Blood Count 8.9 10^3/uL (4.0-10.0)
[2019-05-29 04:34] LABS: Alanine Aminotransferase 24 U/L (0-41); Albumin Level 3.5 g/dL (3.5-5.2); Alkaline Phosphatase 165 IU/L (40-130); Aspartate Amino Transferase 42 U/L (0-40); Blood Urea Nitrogen 17 mg/dL (6-20); Calcium 8.8 mg/dL (8.5-10.5); Carbon Dioxide 24 mmol/L (22-29); Chloride 97 mmol/L (98-107); Globulin 4.2 g/dL (1.3-4.6); Glomerular Filtration Rate 88.3 mL/min (90-130); Glucose 145 mg/dL (74-109); Sodium 132 mmol/L (136-145); Total Bilirubin 1.3 mg/dL (0.15-1.2); Total Protein 7.7 g/dL (6.6-8.7)
--- NOTE | 2019-05-29 05:19 | PC.NURSE ---
Patient reports feeling high anxiety . Patient stated, I just got last March and my kids are texting me to leave them alone. I was very close to my kids prior to my divorce. Patient reports feeling better and not so short of breath. Patient does appear to feeling much better physically and denies any chest pain. Patient is requesting to be discharged as he does not want to stay here and wait until next week to have a cardiac stress test. Patient states, I am beginning to feel that me being short of breath and my chest pain are related to my personal issues at home. Patient also had his mother pass away a few short months before his asked for a divorce. When speaking with patient he does appear upset and melancholy.
[2019-05-29 07:53] LABS: Glucose Point of Care 166 mg/dL (70-110)
[2019-05-29 08:40] LABS: Lactate Dehydrogenase 243 U/L (135-225)
[2019-05-29] MEDS: pantoprazole DR 40 mg Tablet PO (09:10)
[2019-05-29] MEDS: amlodipine 10 mg Tablet PO (09:10)
[2019-05-29] MEDS: aspirin 81 mg EC Tablet PO (09:10)
[2019-05-29] MEDS: metoprolol tartrate 25 mg Tablet PO ×2 (09:10→17:44)
[2019-05-29] MEDS: ropinirole 1 mg Tablet PO ×2 (09:10→17:44)
[2019-05-29] MEDS: escitalopram 10 mg Tablet 20 MG PO (09:10)
[2019-05-29] MEDS: levalbuterol 1.25 mg/3 mL Neb INHALATION ×3 (09:41→20:29)
[2019-05-29 11:41] LABS: Glucose Point of Care 223 mg/dL (70-110)
[2019-05-29 15:51] LABS: Glucose Point of Care 169 mg/dL (70-110)
[2019-05-29] MEDS: enoxaparin 40 mg/0.4 mL Syringe SUBCUT (17:43)
[2019-05-29] MEDS: acetaminophen 325 mg Tablet 650 MG PO (17:47)
--- NOTE | 2019-05-29 18:09 | P.PN_ITS ---
Subjective Subjective: Interval history: T-max 99.7 over the last 24 hours. Today he is on room air with oxygen saturation of 90%. Is currently in sinus rhythm with heart rate of 83 bpm. Reports being extremely anxious today because of a difficult divorce he is going through at this time. Requesting change in antidepressants as Lexapro has not worked for him for a while now. He is improving today though he is still unable to lie flat. No current chest pain Medications: Reviewed: Yes Vitals/I&O/Wt Last Vital Signs Temp 97.9 F 05/29/19 15:08 Pulse 85 05/29/19 16:22 Resp 18 05/29/19 16:22 BP 117/70 05/29/19 15:08 Pulse Ox 92 05/29/19 16:22 05/29/19 05/29/19 05/29/19 06:59 14:59 22:59 Intake Total 250 / 1260 480 / 480 360 / 840 Output Total 650 / 1150 Balance -400 / 110 480 / 480 360 / 840 Weight last 48 hrs Weight 151.908 kg Weight 152.815 kg Weight 154.221 kg Physical Exam Narrative: EXAM NARRATIVE: GEN: Awake, alert and oriented, no acute distress CVS: S1S2 N RS: Bilateral scattered wheezing all areas, however improved over yesterday's exam. Abd: Soft, nt/nd , bs+ REPORT WRITER: no focal neuro deficits Data : 05/29/19 04:02 05/29/19 04:02 Micro: Microbiology 05/27/19 20:40 Blood Culture - Preliminary Blood NEGATIVE TO DATE 05/27/19 20:35 Blood Culture - Preliminary Blood NEGATIVE TO DATE A&P Assessment and plan (1) Chest pain: Status: Acute Code(s): R07.9 - Chest pain, unspecified (2) Dyspnea: Status: Acute Code(s): R06.00 - Dyspnea, unspecified (3) Bronchitis: Status: Acute Code(s): J40 - Bronchitis, not specified as acute or chronic (4) Atrial fibrillation: Status: Acute Code(s): I48.91 - Unspecified atrial fibrillation Additional A&P Information Patient is currently in sinus rhythm on telemetry. Heart rate has been around [address]-T changes on EKG to suggest AMI. Serial troponin negative x 2. No current chest pain. No evidence of PE on CTA chest 02 sat 90- 92% on room air now. Will obtain home O2 evaluation tomorrow. Noted to have B/L interstitial infiltrates which may be fluid vs pneumonitis. Given overall clinical picture now with also fevers and wheezing more likely to be consistent with viral bronchitis bronchitis overall picture. Tolerating change to levoalbuterol inhalation better today. Not refusing treatments anymore. Will schedule for stress test as an outpatient. We will additionally set him up with a 21-day event monitor upon discharge. ASA 81mg daily,continue lipitor Continue anti hypertensives lisinopril-HCTZ and amlodipine ISS for DM2. CV echo gr 2 diastolic dysfunction prn nitrates for chest pain influenza negative DVT ppx: lovenox Code staus: fc Attestations Medical Necessity Statement*: Remains admitted for optimization of respiratory status. Now afebrile over the last 24 hours . On room air today. Breathing is improving. Likely discharge over the next 24 hours. Coding Level of Care Code Acute Property Management Assistant for Shreya Espinoza Diagnoses Chest pain R07.9 Dyspnea R06.00 Bronchitis J40 Atrial fibrillation I48.91
[2019-05-29] MEDS: ALPRAZolam 0.25 mg Tablet PO (18:22)
[2019-05-29 20:12] LABS: Glucose Point of Care 164 mg/dL (70-110)
[2019-05-29] MEDS: cefTRIAXone 1,000 MG in sodium chloride 0.9% (plus) 50 ML 100 MG IV (21:19)
--- NOTE | 2019-05-29 23:10 | PC.NURSE ---
Patient's left AC iv site became occluded and was removed. New iv start to right hand on first attempt by Kateryna Hardwick RN. Patient tolerated well.
[2019-05-30] VITALS (56 sets, daily range): BP systolic 132–138; BP diastolic 74–80; PULSE 77–92; RESP 18–22; TEMP 37.2; O2SAT 86–94
[2019-05-30 05:13] LABS: Basophils # 0.1 10^3/uL (0.0-0.1); Basophils % 0.7 %; Eosinophils # 0.1 10^3/uL (0.0-0.8); Eosinophils % 2.1 %; Hematocrit 32.8 % (42.0-52.0); Hemoglobin 9.6 g/dL (11.7-16.6); Lymphocytes # 1.3 10^3/uL (0.8-4.8); Mean Corpuscular HGB Conc 29.3 g/dL (30.0-36.0); Mean Corpuscular Hemoglobin 22.2 pg (28.0-34.0); Mean Corpuscular Volume 75.8 fL (80-94); Mean Platelet Volume 12.6 fL (7.4-10.4); Monocytes # 0.6 10^3/uL (0.2-0.9); Monocytes % 9.1 %; Neutrophils # 4.6 10^3/uL (1.8-7.7); Neutrophils % 68.8 %; Nucleated Red Blood Cells % 0 %; Platelet Count 126 10^3/cmm (130-400); Red Blood Count 4.33 10^6/uL (4.1-5.3); Red Cell Distribution Width 18.6 % (12.1-15.1); White Blood Count 6.7 10^3/uL (4.0-10.0)
--- NOTE | 2019-05-30 05:17 | PC.NURSE ---
Patient removed telemetry and oxygen. Replaced oxygen. Patient refused to have telemetry replaced. Patient stated, I asked for a pain pill an hour ago and no one ever brought me one. Instructed patient on timing of pain medications and that it was not quite due to give pain medications. Patient responded by stating bullshit . Reinforced education. No further response from patient.
[2019-05-30 05:26] LABS: Alanine Aminotransferase 20 U/L (0-41); Albumin Level 3.2 g/dL (3.5-5.2); Alkaline Phosphatase 152 IU/L (40-130); Anion Gap 13.7 (5-19); Aspartate Amino Transferase 34 U/L (0-40); Blood Urea Nitrogen 16 mg/dL (6-20); Calcium 8.7 mg/dL (8.5-10.5); Carbon Dioxide 26 mmol/L (22-29); Chloride 100 mmol/L (98-107); Globulin 4.1 g/dL (1.3-4.6); Glomerular Filtration Rate 88.3 mL/min (90-130); Glucose 166 mg/dL (74-109); Potassium 3.7 mmol/L (3.5-5.1); Sodium 136 mmol/L (136-145); Total Bilirubin 0.8 mg/dL (0.15-1.2); Total Protein 7.3 g/dL (6.6-8.7)
[2019-05-30 07:44] LABS: Glucose Point of Care 162 mg/dL (70-110)
--- NOTE | 2019-05-30 08:16 | USR_ITS ---
PROCEDURE INFORMATION: Exam: US Abdomen Limited, Right Upper Quadrant Exam date and time: 05/30/2019 8:56 AM Age: 54 years old Clinical indication: Abdominal pain; Generalized; Additional info: Evaluate for portal hypertension TECHNIQUE: Imaging protocol: Real-time ultrasound of the abdomen with image documentation. Examination was focused on the right upper quadrant. COMPARISON: No relevant prior studies available. FINDINGS: Liver: 20 cm liver suggesting mild hepatomegaly. Possible nodular liver suggesting possible cirrhosis. Gallbladder: Sonographically negative Stark's sign suggesting no cholecystitis. 2.8 mm gallbladder wall. Common bile duct: 5.8 mm common bile duct. Pancreas: Visualized pancreas is unremarkable. Right kidney: 12.0 x 4.6 x 4.8 cm right kidney. Right renal cortex 1.9 cm. Portal venous: 13 mm portal vein. Inferior vena cava: 2.3 cm IVC. Other findings: Examination is limited by bowel gas. US/US abdomen limited 63724 IMPRESSION: 1. 20 cm liver suggesting mild hepatomegaly. 2. Examination is limited by bowel gas. 3. Possible nodular liver suggesting possible cirrhosis. 4. Normal gallbladder.
[2019-05-30] MEDS: aspirin 81 mg EC Tablet PO (08:21)
[2019-05-30] MEDS: fluoxetine 20 mg Capsule PO (08:21)
[2019-05-30] MEDS: pantoprazole DR 40 mg Tablet PO (08:22)
[2019-05-30] MEDS: metoprolol tartrate 25 mg Tablet PO (08:23)
[2019-05-30] MEDS: amlodipine 10 mg Tablet PO (08:24)
[2019-05-30] MEDS: ropinirole 1 mg Tablet PO (08:24)
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
--- NOTE | 2019-05-30 08:39 | ECG_ITS ---
Measurements Intervals Spiro Rate: 78 P: 30 MS: 144 QRS: -27 QRSD: 93 T: 9 QT: 419 QTc: 480 SINUS RHYTHM WITH OCCASIONAL ECTOPIC PREMATURE COMPLEXES BORDERLINE LEFT AXIS DEVIATION [QRS AXIS < -20] NONSPECIFIC T-WAVE ABNORMALITY Compared to ECG 05/27/2019 16:07:29 T-wave abnormality now present Atrial fibrillation no longer present Aberrant conduction of supraventricular beat(s) no longer present Ventricular premature complex(es) no longer present Atrial abnormality no longer present ST (T wave) deviation no longer present Electronically Signed On 05-30-2019 16:29:14 DRILL FOREMAN by Chai Rodriguez M.D. [id number]
[2019-05-30] MEDS: levalbuterol 1.25 mg/3 mL Neb INHALATION (09:01)
[2019-05-30 12:00] LABS: Glucose Point of Care 185 mg/dL (70-110)
--- NOTE | 2019-05-30 15:10 | PC.NURSE ---
Discharge to home Instructed pt to follow-up with his pcp, see a floating operator for a stress test and a cardiac event monitor. Pt stated he will call the [facility] for an oxygen to use at night. DME: O2 order given to pt. Discharge meds actions, dosing, timing and possible s/e discuss to pt. ushered pt via wheelchair.
[2019-06-03 10:11] LABS: Glucose Point of Care 128 mg/dL (70-110)
== END 2019-05-30 15:12 | disposition home or self-care (01) | DRG 310 ==
LOC: ER 14:22 → CSU 15:16
PROVIDERS: Physician Assistant; Admitting Provider Student in an Organized Health Care Education/Training Program; Emergency Provider Family Medicine; Family Provider Electrodiagnostic Medicine; Visit Provider Student in an Organized Health Care Education/Training Program
DX: I48.91 Unspecified atrial fibrillation (principal); J40 Bronchitis, not specified as acute or chronic; Z20.89 Contact with and (suspected) exposure to other communicable diseases; I10 Essential (primary) hypertension; E11.9 Type 2 diabetes mellitus without complications; L40.9 Psoriasis, unspecified; S89.92XA Unspecified injury of left lower leg, initial encounter; X50.1XXA Overexertion from prolonged static or awkward postures, initial encounter; Y93.9 Activity, unspecified; S99.911A Unspecified injury of right ankle, initial encounter; E78.5 Hyperlipidemia, unspecified
CPT/HCPCS: 12345; 36415; 36416; 71045; 71275; 73560; 73620; 76705; 80048; 80053; 80061; 80307; 81001; 82607; 82746; 82962; 83010; 83036; 83540; 83615; 83735; 83880; 84443; 84484; 85025; 86705; 86706; 86709; 86803; 87040; 87340; 87804; 87806; 93005; 93306; 93970; 94640; 94660; 96365; 96366; 96372; 96374; 96375; 99282; G0378; J0696; J1650; J1815; J1940; J2270; J3490; J7611; J7614; Q9967

== ENCOUNTER 2019-12-18 20:27 | Emergency (ER) | payer BC, SELFPAY ==
--- NOTE | 2019-12-18 20:38 | XR_ITS ---
WS: [id number] EXAM: AP CHEST: PORTABLE UPRIGHT DATE OF EXAM: 12/18/2019, 2103 hours COMPARISON: Chest x-ray from 05/27/2019 HISTORY: Patient is 54 years old with atraumatic chest pain and dizziness. FINDINGS: The cardiac silhouette is normal in size. The mediastinal contours are normal. The pulmonary vas cularity is normal. Slight chronic lung changes seen. There is minimal linear atelectasis or scarrin g left costophrenic angle similar to prior imaging. No area of consolidation. There is no effusion o r pneumothorax. No acute bony abnormality is seen. XR/XR chest 1V portable [id number] IMPRESSION: No acute pulmonary disease.
--- NOTE | 2019-12-18 20:38 | ECG_ITS ---
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 Measurements Intervals Adel Rate: 65 P: 31 OR: 176 QRS: -35 QRSD: 114 T: 1 QT: 458 QTc: 478 Interpretive Statements SINUS RHYTHM LEFT AXIS DEVIATION [QRS AXIS < -30] POSSIBLE LEFT VENTRICULAR HYPERTROPHY [VOLTAGE CRITERIA PLUS LAE OR QRS WIDENING] NONSPECIFIC T-WAVE ABNORMALITY PROLONGED QT INTERVAL Compared to ECG 05/30/2019 09:00:08 Prolonged QT interval now present T-wave abnormality still present Electronically Signed On 12-19-2019 19:27:12 CDT by Ignacio Agosto M.D. [id number]
[2019-12-18 20:41] VITALS: BP 159/93; PULSE 69; RESP 18; TEMP 36.4; O2SAT 98; BMI 35.9
[2019-12-18 21:08] LABS: Eosinophils # 0.1 10^3/uL (0.0-0.8); Eosinophils % 2.6 %; Hematocrit 38.1 % (42.0-52.0); Hemoglobin 11.2 g/dL (11.7-16.6); Lymphocytes # 1.1 10^3/uL (0.8-4.8); Lymphocytes % 28.4 %; Mean Corpuscular HGB Conc 29.4 g/dL (30.0-36.0); Mean Corpuscular Volume 78.4 fL (80-94); Mean Platelet Volume 12.3 fL (7.4-10.4); Monocytes # 0.2 10^3/uL (0.2-0.9); Monocytes % 6.1 %; Neutrophils # 2.41 10^3/uL (1.8-7.7); Neutrophils % 61.6 %; Nucleated Red Blood Cells % 0 %; Platelet Count 110 10^3/cmm (130-400); Red Blood Count 4.86 10^6/uL (4.1-5.3); Red Cell Distribution Width 16.9 % (12.1-15.1); White Blood Count 3.9 10^3/uL (4.0-10.0)
[2019-12-18 21:30] LABS: Troponin(5th) Baseline 8 ng/L (0-15)
[2019-12-18] MEDS: nitroglycerin 1 gm/inch oint Pkt 1 INCH TOPICAL (21:30)
[2019-12-18 21:36] LABS: Alanine Aminotransferase 33 U/L (0-41); Albumin Level 4.2 g/dL (3.5-5.2); Alkaline Phosphatase 210 IU/L (40-130); Anion Gap 13.3 (5-19); Aspartate Amino Transferase 49 U/L (0-40); Blood Urea Nitrogen 17 mg/dL (6-20); Calcium 8.6 mg/dL (8.5-10.5); Carbon Dioxide 28 mmol/L (22-29); Chloride 98 mmol/L (98-107); Creatine Phosphokinase 54 U/L (39-308); Globulin 3.3 g/dL (1.3-4.6); Glomerular Filtration Rate 78.2 mL/min (90-130); Glucose 306 mg/dL (65-115); NT Pro B Type Natriuretic Pept 205 pg/mL (0-125); Osmolality Calculated 288 mOsm/kg (285-295); Potassium 4.3 mmol/L (3.5-5.1); Sodium 135 mmol/L (136-145); Total Bilirubin 0.5 mg/dL (0.15-1.2); Total Protein 7.5 g/dL (6.6-8.7)
[2019-12-18 21:42] VITALS: BP 139/83; PULSE 74; RESP 16; O2SAT 96
--- NOTE | 2019-12-18 22:01 | PC.NURSE ---
during pt rounds, pt stating pain in L shoulder radiating to hand after NTG patch adm. Location of patch verified, no leakage or redness noted. Dr notified, vo to remove NTG patch. Pt under observation for troponin levels
--- NOTE | 2019-12-18 22:38 | ECG_ITS ---
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 Measurements Intervals Elida Rate: 66 P: 13 KS: 131 QRS: -36 QRSD: 102 T: -17 QT: 442 QTc: 465 Interpretive Statements SINUS RHYTHM WITH OCCASIONAL ECTOPIC PREMATURE COMPLEXES LEFT AXIS DEVIATION [QRS AXIS < -30] VOLTAGE CRITERIA FOR LVH [MEETS CRITERIA IN ONE OF: R(aVL), S(V1), R(V5), R(V5/V6)+S(V1)] NONSPECIFIC T-WAVE ABNORMALITY Compared to ECG 12/18/2019 21:17:44 Prolonged QT interval no longer present T-wave abnormality still present Electronically Signed On 12-20-2019 19:56:11 CDT by Ignacio Agosto M.D. [id number]
[2019-12-18 22:52] LABS: Troponin 5 2HR 6.31 ng/L (0-15)
--- NOTE | 2019-12-18 23:13 | W.ED.CHESTPA ---
HPI - Chest Pain General: Chief Complaint: Chest Pain Stated Complaint: chest pain/dizziness Time Seen by Provider: 12/18/19 20:39 History of Present Illness: HPI narrative: 54-year-old male with history of foot appears to be nonischemic cardiomyopathy. He presents with significant chest pain. Pain started at rest, while he was sitting resting. He was hypertensive on EMS on arrival. He was given a nitroglycerin and aspirin, which brought his pain to a 0. Also improved his blood pressure. He notes that he has a history of hypertension. MD complaint: chest pain Pertinent past history: other (Congestive heart failure) Onset (ago): minute(s) Timing of current episode: constant and now resolved Prior episodes: Yes Onset: during rest Pain location: substernal and left chest Pain radiation: left arm Severity: moderate Relieving factors: nitroglycerin Associated symptoms: Reports dyspnea; Deny abdominal pain, fever(s), nausea, syncope or vomiting Treatment prior to arrival: aspirin and nitroglycerin Review of Systems Const: Denies: fever(s) Eyes: Denies: change in vision ENMT: Denies: swelling of lips/tongue or sinus pain Card: Denies: syncope Resp: Reports: dyspnea GI: Denies: abdominal pain, nausea or vomiting : Denies: difficulty urinating or hematuria Musc: Denies: neck pain or back pain Skin/Breast: Denies: rash or erythema Neuro: Denies: headache(s), dizziness, vertigo, confusion or seizure-like activity Psych: Denies: anxiety PFSH ED PFSH: Medical History (Updated 12/18/19 @ 23:23 by Anirudh Case DO) Angioedema Diabetes Hyperlipidemia Hypertension Psoriasis Surgical History H/O knee surgery Hx of cardiac cath Social History Smoking and tobacco status: never smoked Physical Exam Const: GENERAL APPEARANCE: well developed ORIENTATION/CONSCIOUSNESS: Yes oriented to person, Yes oriented to place and Yes oriented to time HENMT: COMMON NORMALS: normocephalic, external ears normal and Normal external nose present HEAD & SCALP: normocephalic FACE & SINUS: normal facial exam NOSE: Normal external nose present and No nasal discharge present EXTERNAL EAR: Yes external ears normal THROAT: posterior oropharynx normal; no peritonsillar mass Eye: COMMON NORMALS: Equal, round and reactive pupils present, EOMs intact bilaterally and conjunctivae normal EYELID: eyelids normal CONJUNCTIVA: Yes conjunctivae normal PUPIL: Yes Equal, round and reactive pupils present Neck/C-Spine: GENERAL: No tracheal deviation Chest: COMMONS NORMALS: normal inspection of the chest CHEST: No tenderness Resp: COMMON NORMALS: clear to auscultation bilaterally EFFORT & INSPECTION: No tachypneic, No respiratory distress, No retractions, No uses accessory muscles and No tracheal deviation AUSCULTATION: clear to auscultation bilaterally, no rhonchi, no wheezes and lung sounds not diminished Cardio: COMMON NORMALS: regular rate and regular rhythm RATE: regular rate RHYTHM: regular rhythm HEART SOUNDS: no murmurs PERIPHERAL PULSES: radial pulses present GI: INSPECTION: No abdominal distension AUSCULTATION: No Hyperactive bowel sounds present and No Hypoactive bowel sounds present PALPATION: No Guarding due to palpation present (GI) and No Rigid due to palpation PERCUSSION: no dullness to percussion and no tympanic to percussion Neuro: SENSORIUM/ORIENTATION: Yes oriented to person, Yes oriented to place and Yes oriented to time Psych: COMMON NORMALS: mental status grossly normal Skin: COMMON NORMALS: no rashes or lesions noted GENERAL SKIN EXAM: no rashes or lesions noted Course Vital Signs: Vital signs: Vital Signs Temperature 97.6 F 12/18/19 20:41 Pulse Rate 74 12/18/19 21:42 Respiratory Rate 16 12/18/19 21:42 Blood Pressure 139/83 12/18/19 21:42 Pulse Oximetry 96 12/18/19 21:42 MDM - Chest Pain MDM Narrative: Medical decision making narrative: 54-year-old gentleman with no prior history of coronary disease. He does have a history of CHF according to him. He presents with resolved chest pain. He was hypertensive on arrival. He is normotensive currently. He was originally placed on Nitropaste, but this was removed. His troponin was not elevated on arrival, and did not elevate at 2 hours. 2 EKGs show sinus rhythm in the 60s with a left axis, and no acute ST changes. With improvement in his symptoms, we will let him be discharged. His chest x-ray is negative also. Lab Data: Labs: Lab Results 12/18/19 12/18/19 12/18/19 Range/Units 20:30 20:30 20:30 WBC 3.9 L (4.0-10.0) 10^3/ uL RBC 4.86 (4.1-5.3) 10^6/u L Hgb 11.2 L (11.7-16.6) g/dL Hct 38.1 L (42.0-52.0) % MCV 78.4 L (80-94) fL MCH 23.0 L (28.0-34.0) pg MCHC 29.4 L (30.0-36.0) g/dL RDW 16.9 H (12.1-15.1) % Plt Count 110 L (130-400) 10^3/c mm MPV 12.3 H (7.4-10.4) fL Neut % (Auto) 61.6 % Lymph % (Auto) 28.4 % [place] % (Auto) 6.1 % Eos % (Auto) 2.6 % Baso % (Auto) 1.0 % Neut # (Auto) 2.41 (1.8-7.7) 10^3/u L Lymph # (Auto) 1.1 (0.8-4.8) 10^3/u L [place] # (Auto) 0.2 (0.2-0.9) 10^3/u L Eos # (Auto) 0.1 (0.0-0.8) 10^3/u L Baso # (Auto) 0.0 (0.0-0.1) 10^3/u L Nucleated RBC % (a uto) 0 % Nucleated RBCs # 0.0 /100WBC Sodium 135 L (136-145) mmol/L Potassium 4.3 (3.5-5.1) mmol/L Chloride 98 (98-107) mmol/L Carbon Dioxide 28 (22-29) mmol/L Anion Gap 13.3 (5-19) BUN 17 (6-20) mg/dL Creatinine 1.0 (0.7-1.2) mg/dL GFR Calculation 78.2 L (90-130) mL/min Glucose 306 H (65-115) mg/dL Calculated Osmolal ity 288 (285-295) mOsm/k g Calcium 8.6 (8.5-10.5) mg/dL Total Bilirubin 0.5 (0.15-1.2) mg/dL AST 49 H (0-40) U/L ALT 33 (0-41) U/L Alkaline Phosphata se 210 H (40-130) IU/L Creatine Kinase 54 (39-308) U/L Troponin T Baselin e 8 (0-15) ng/L Troponin T 120 Min [place] (0-15) ng/L Delta Troponin T (0-10) ABS# NT-Pro-B Natriuret Pep 205 H (0-125) pg/mL Total Protein 7.5 (6.6-8.7) g/dL Albumin 4.2 (3.5-5.2) g/dL Globulin 3.3 (1.3-4.6) g/dL 12/18/19 Range/Units 22:28 WBC (4.0-10.0) 10^3/ uL RBC (4.1-5.3) 10^6/u L Hgb (11.7-16.6) g/dL Hct (42.0-52.0) % MCV (80-94) fL MCH (28.0-34.0) pg MCHC (30.0-36.0) g/dL RDW (12.1-15.1) % Plt Count (130-400) 10^3/c mm MPV (7.4-10.4) fL Neut % (Auto) % Lymph % (Auto) % [place] % (Auto) % Eos % (Auto) % Baso % (Auto) % Neut # (Auto) (1.8-7.7) 10^3/u L Lymph # (Auto) (0.8-4.8) 10^3/u L [place] # (Auto) (0.2-0.9) 10^3/u L Eos # (Auto) (0.0-0.8) 10^3/u L Baso # (Auto) (0.0-0.1) 10^3/u L Nucleated RBC % (a uto) % Nucleated RBCs # /100WBC Sodium (136-145) mmol/L Potassium (3.5-5.1) mmol/L Chloride (98-107) mmol/L Carbon Dioxide (22-29) mmol/L Anion Gap (5-19) BUN (6-20) mg/dL Creatinine (0.7-1.2) mg/dL GFR Calculation (90-130) mL/min Glucose (65-115) mg/dL Calculated Osmolal ity (285-295) mOsm/k g Calcium (8.5-10.5) mg/dL Total Bilirubin (0.15-1.2) mg/dL AST (0-40) U/L ALT (0-41) U/L Alkaline Phosphata se (40-130) IU/L Creatine Kinase (39-308) U/L Troponin T Baselin e (0-15) ng/L Troponin T 120 Min [place] 6.31 (0-15) ng/L Delta Troponin T -1.69 L (0-10) ABS# NT-Pro-B Natriuret Pep (0-125) pg/mL Total Protein (6.6-8.7) g/dL Albumin (3.5-5.2) g/dL Globulin (1.3-4.6) g/dL Discharge Plan Discharge Patient Disposition: Home Clinical Impression: Chest pain Qualifiers: Chest pain type: unspecified Qualified Code(s): R07.9 - Chest pain, unspecified Hypertension Qualifiers: Hypertension type: essential hypertension Qualified Code(s): I10 - Essential (primary) hypertension Condition: Stable Prescriptions: No Action Multiple Vitamins Tablet 1 tab PO DAILY RF: 0 ropinirole 1 mg Tablet 1 mg PO BID RF: 0 lisinopril-hydrochlorothiazide 20-12.5 mg Tablet 2 tab PO QAM RF: 0 Hold Instructions: Resume on 06/05/19. Check BP twice daily over the next week. resume medicine if top number is >140 sildenafil 100 mg Tablet 100 mg PO DAILY PRN (Reason: Sexual Activity) RF: 0 trazodone 100 mg Tablet 100 mg PO BEDTIME RF: 0 amlodipine 10 mg Tablet 10 mg PO DAILY RF: 0 Prilosec OTC 20 mg Tablet,Delayed Release (Dr/Ec) 20 mg PO DAILY RF: 0 Lantus Solostar U-100 Insulin 100 unit/mL (3 mL) Insulin Pen 70 unit SUBCUT BID RF: 0 Trulicity 1.5 mg/0.5 mL pen injector See Rx Instructions .ROUTE .COMPLEX RF: 0 acetaminophen 325 mg Tablet 650 mg PO Q6H PRN (Reason: Mild/Mod Pain Or Temp >/= 101) Qty: 0 RF: 0 aspirin 81 mg Tablet,Delayed Release (Dr/Ec) 81 mg PO DAILY Qty: 0 RF: 0 levalbuterol tartrate 45 mcg/actuation HFA aerosol inhaler 2 inh INHALATION Q6H PRN (Reason: shortness of breath or wheezing) Qty: 15 RF: 1 polysaccharide iron complex 150 mg iron capsule 150 mg PO BID Qty: 60 RF: 1 folic acid 1 mg tablet 1 mg PO DAILY Qty: 60 RF: 0 Discharge Orders: Discharge Order (Routine); Ordered 12/18/19 Ordered By: Anirudh Case Referrals: Contreras Faustin, [Primary Care Provider] - 4-7 days Discharge Diet: Diabetic Discharge Activity: Increase activity as tolerated Patient Instructions: Chest Pain (ED), Hypertension (ED) Activity Restrictions/Additional Instructions: Check your blood pressure twice daily. Report numbers to your physician. Return for return of chest pain, any shortness of breath, cough, fever, other concerning symptoms. Discharge Date/Time: 12/19/19 01:40 Coding Level of Care Code ED [employer] for [employer]g Fwd Exam Comprehensive
[2019-12-18 23:15] LABS: Troponin 5 2HR Delta -1.69 ABS# (0-10)
== END 2019-12-19 01:40 | disposition home or self-care (01) ==
PROVIDERS: Emergency Provider Emergency Medicine; PCP Electrodiagnostic Medicine
DX: R07.9 Chest pain, unspecified (principal); I10 Essential (primary) hypertension; Z79.4 Long term (current) use of insulin; Z79.82 Long term (current) use of aspirin; E11.9 Type 2 diabetes mellitus without complications; E78.5 Hyperlipidemia, unspecified
CPT/HCPCS: 12345; 71045; 80053; 82550; 83880; 84484; 85025; 93005; 96374; 99282; 99284

== ENCOUNTER → 2019-12-24 13:08 | Outpatient (BNVA) | payer BC, SELFPAY | PROVIDERS: PCP Electrodiagnostic Medicine; Visit Provider Specialist | DX: M25.562 Pain in left knee (principal); M25.561 Pain in right knee | CPT/HCPCS: 73560; 73565 ==

== ENCOUNTER → 2020-01-01 08:44 | Outpatient (BNVA) | payer BC, SELFPAY | PROVIDERS: PCP Electrodiagnostic Medicine; Visit Provider Internal Medicine | DX: Z11.59 Encounter for screening for other viral diseases (principal) | CPT/HCPCS: 87635 ==

== ENCOUNTER 2020-01-05 12:10 | Observation (INO) | payer BC, SELFPAY ==
[2019-12-30 10:05] VITALS: BMI 35.6
--- NOTE | 2019-12-30 10:05 | P.ANESASSM_ITS ---
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 Exam: Pre-Anes Outpt Exam: alert, oriented x 3, clear to auscultation bilaterally and regular rate & rhythm Airway: Cervical ROM: WNL MP: 4 Dentition: Full Pulmonary: Pulmonary: None reported CV/HEM: CV/HEM: Afib (on eliquis) and HTN Metabolic: Metabolic: DM Musc/skel: Musc/skel: OA/DJD Neuropsych: Neuropsych: None reported Anesthetic Plan: ASA status: 3 Anesthesia: General and Regional (specify below) Risk of > 500 ml blood loss (7ml/kg in children): No PFSH Anesthesia PFSH: Medical History Angioedema Diabetes Hyperlipidemia Hypertension Psoriasis Surgical History H/O knee surgery Hx of cardiac cath Social History Smoking and tobacco status: never smoked Data Anesthesia Cardiac Studies: No Data to Display
[2019-12-30 11:47] LABS: Basophils % 1.2 %; Eosinophils # 0.1 10^3/uL (0.0-0.8); Eosinophils % 4.2 %; Hematocrit 36.7 % (42.0-52.0); Hemoglobin 10.9 g/dL (11.7-16.6); Lymphocytes # 0.7 10^3/uL (0.8-4.8); Lymphocytes % 21.3 %; Mean Corpuscular HGB Conc 29.7 g/dL (30.0-36.0); Mean Corpuscular Hemoglobin 23.5 pg (28.0-34.0); Mean Corpuscular Volume 79.1 fL (80-94); Monocytes # 0.2 10^3/uL (0.2-0.9); Monocytes % 6.9 %; Neutrophils # 2.21 10^3/uL (1.8-7.7); Neutrophils % 66.1 %; Nucleated Red Blood Cells % 0 %; Platelet Count 95 10^3/cmm (130-400); Red Blood Count 4.64 10^6/uL (4.1-5.3); White Blood Count 3.3 10^3/uL (4.0-10.0)
[2019-12-30 11:52] LABS: Add Urine Microscopic? YES; Bilirubin Urine Neg (NEGATIVE); Blood Urine Neg (Negative); Glucose Urine UA Norm (Normal); Ketones Urine Negative (Negative); Leukocyte Esterase Urine Trace (Negative); Nitrate Urine Negative (Negative); Protein Urine Neg (Negative); Urine Appearance Clear (CLEAR); Urine Color Yellow (Yellow); Urobilinogen Urine Neg (Negative); pH Urine 6.5 (5-7)
[2019-12-30 11:56] LABS: Add Urine Culture? No; Amorphous Sediment Urine TRACE; Bacteria Urine TRACE; Squamous Epithelial Cell Urine 0-4 (0-5); WBC Urine 0-4 /hpf (0-5)
[2019-12-30 11:59] LABS: Alanine Aminotransferase 41 U/L (0-41); Albumin Level 3.8 g/dL (3.5-5.2); Alkaline Phosphatase 223 IU/L (40-130); Anion Gap 11.1 (5-19); Aspartate Amino Transferase 57 U/L (0-40); Blood Urea Nitrogen 15 mg/dL (6-20); Calcium 8.5 mg/dL (8.5-10.5); Carbon Dioxide 30 mmol/L (22-29); Chloride 102 mmol/L (98-107); Globulin 3.4 g/dL (1.3-4.6); Glomerular Filtration Rate 78.2 mL/min (90-130); Glucose 261 mg/dL (65-115); Osmolality Calculated 293 mOsm/kg (285-295); Potassium 4.1 mmol/L (3.5-5.1); Sodium 139 mmol/L (136-145); Total Bilirubin 0.8 mg/dL (0.15-1.2); Total Protein 7.2 g/dL (6.6-8.7)
[2019-12-30 12:05] LABS: Slide Review Slide Review Perform
[2020-01-05] VITALS (17 sets, daily range): BP systolic 134–163; BP diastolic 78–100; PULSE 74–95; RESP 16–20; TEMP 36.4–37.2; O2SAT 18–99
[2020-01-05] MEDS: CELEcoxib 200 mg Capsule 400 MG PO (08:48)
[2020-01-05] MEDS: sodium chloride 0.9% 1,000 ML 30 ML IV (08:48)
--- NOTE | 2020-01-05 08:49 | W.PM.OPSUD ---
Surgery/Procedure H&P Update DATE OF PROCEDURE: January 05, 2020 DATE H&P PERFORMED: 12/24/19 H&P UPDATE INFORMATION: I have reviewed H&P completed within last 30 days, I have examined patient prior to procedure, No changes to prior documentation and [place] [facility] [place] PREOP DIAGNOSIS: Severe degenerative osteoarthritis left knee PLANNED PROCEDURE: Operation Date: 01/05/20 10:15 Proposed Procedures p Total Knee Arthroplasty 06376 M17.12(Left) - Amber Blunt MD Related Problem List Diagnoses (1) Degenerative arthritis of left knee:
[2020-01-05 09:00] LABS: Glucose Point of Care 281 mg/dL (70-110)
--- NOTE | 2020-01-05 09:16 | P.ANESUD_ITS ---
Pre-Anesthetic Update Pre-Anesthetic Assessment: Date of Surgery/Procedure: 01/05/20 Preop Any gnosis: Severe degenerative osteoarthritis left knee Proposed Procedure: Operation Date: 01/05/20 10:15 Proposed Procedures p Total Knee Arthroplasty 33200 M17.12(Left) - Amber Blunt MD Any changes to Pre-Anesthetic Assessment?: No Last Intake: Intake Last Liquid Date 01/04/20 Last Liquid Time 22:00 Last Solid Date 01/04/20 Last Solid Time 22:00 Labs Last 48hrs: Laboratory Results - last 48 hr 01/05/20 08:55 POC Glucose 281 Vitals: Oxygen Delivery Ks thod 01/05/20 08:51 Exam: Pre-Anes Outpt Exam: alert, oriented x 3, clear to auscultation bilaterally and regular rate & rhythm Cardiac Studies: No Data to Display
--- NOTE | 2020-01-05 09:16 | ANES.PROC ---
Anesthesia Procedures Procedure/Date: 01/05/20 Nerve Block ^: Nerve Block 1: Main Anesthesia: general anesthesia Time Out Performed: Yes Consent: requested by attending/covering physician, from patient, risks and benefits reviewed and patient agrees to proceed Nerve block location: adductor canal (L) Anesthesia monitors applied: pulse oximetry, EKG, BP cuff and oxygen Nerve block position: supine Anesthetic Used: ropivicaine 0.5% and with decadron Amount of anesthesia used (mL): 30 Ultrasound used to: recognize landmarks Nerve Stimulator Used?: No Interscalene/Femoral BLK: 4 stimuplex 21 g needle used for position and inplane approach, visualize local anesthetic spread and no vascular puncture identified Injection: neg aspiration of heme Patient Tolerated Procedure: well Complications: none
[2020-01-05] MEDS: vancomycin 1,000 MG in sodium chloride 0.9% 250 ML 250 MG IV (09:20)
[2020-01-05] MEDS: vancomycin 1,000 MG SDV 1000 MG XX (10:40)
[2020-01-05] MEDS: ceFAZolin 1,000 mg SDV 1000 MG IRRIGATION ×2 (10:41→10:42)
--- NOTE | 2020-01-05 12:29 | SUR.PHASEI ---
PT AWAKE ALERT C/O OF NEED TO URINATE, PT REMINDED OF MORALES CATHETER DRAINING DK YELLOW URINE, PT ALERT ON RA VSS
[2020-01-05] MEDS: morphine 4 mg/mL SDV 1 mL 2 MG IVP (12:30)
--- NOTE | 2020-01-05 12:30 | XRR_ITS ---
PROCEDURE INFORMATION: Exam: XR Left Knee Exam date and time: 01/05/2020 12:48 PM Age: 54 years old Clinical indication: Device placement; Joint replacement hardware; Prior surgery; Surgery date: Post-operative (0-2 days); Additional info: Status post left total knee arthroplasty TECHNIQUE: Imaging protocol: XR Left knee. Views: 1 or 2 views. COMPARISON: CR XR knees AP WB w BI lmt ORTH 12/24/2019 1:14 PM FINDINGS: Bones/joints: The patient has had a total knee arthroplasty. No periprosthetic lucency. No fracture. No dislocation. There is a suprapatellar joint effusion. Soft tissues: Postoperative soft tissue changes are present. XR/XR knee LT 1-2V 85090 IMPRESSION: Postoperative changes.
--- NOTE | 2020-01-05 12:35 | P.OP_ITS ---
Operative Report Date of procedure: January 05, 2020 Pre-op Diagnosis: Severe degenerative osteoarthritis left knee Post-op diagnosis: same Post-op Findings: Significant synovitis consistent with hemosiderin, erosive degenerative changes with complete loss of cartilage and erosion over the tibial plateau and femoral condyles. Procedure Done: Left total knee arthroplasty utilizing the following [place] implants: A size 6 triathlon posterior stabilized press-fit left femoral component, a size 7 triathlon titanium tibial component, press-fit, a triathlon tibial bearing insert size 7 x 9 mm, and an asymmetric 38 mm x 11 mm patella Specimens removed/disposition: Bone and synovium. Bone, disposed of. Synovium, sent to pathology Pathology: other (Synovium for microscopic evaluation) Surgeon: Amber Blunt Expander Machine Operator: José Miguel Braxton Anesthesia: General (Intubated, ASA 3 with supplemental regional block) Estimated blood loss (mL): 10 Tourniquet time (min): 100 Tourniquet time: At 250 mmHg IV fluids (mL): 1,000 Urine output (mL): 100 Complications: None Findings: Severe erosive osteoarthritic change with copious synovium including hemosiderin staining. This was sent for pathology. Condition: stable Disposition: PACU (Then to floor for postoperative rehabilitation, medical management, and pain management. A consult was placed to the hospitalist team, Dr. Henry) Brief History: This 54-year-old gentleman presented with complaints of severe knee pain. After discussion, he wished to proceed with total knee arthroplasty. He was unresponsive to nonoperative measures including injection therapies as well as anti-inflammatory therapy. He had significant limitations in his activities of daily living. He understands the risks and complications which were discussed in detail with him. He understands that given his age and size, he is at increased risk of perioperative comorbidities. Additionally, the patient requires hospitalist management of his multiple medical comorbidities at the time of the arthroplasty. Consents were signed and questions were answered. Procedure: The patient was brought to the operating theater, and after undergoing adequate general intubated anesthesia, ASA 3, with supplemental regional block, the left lower extremity was prepped with Dura-Prep and draped in usual fashion following placement of a tourniquet high on the leg. The leg was then draped free. Following prepping and draping, the leg was exsanguinated, and the tourniquet was elevated to 250 mmHg for a total tourniquet time of 100 minutes. Prior to elevation of the tourniquet, but following exposure of the site of surgery, a surgical pause was performed. At the time of the surgical pause, we confirmed the site and side of surgery. Additionally, we confirmed the appropriate and timely administration of preoperative antibiotics, vancomycin 1 g and transexemic acid 1 g pre op. The availability of equipment was confirmed, and the patient's identity was verbalized as well. Following the surgical pause, an incision was made centering over the patella continuing proximally and distally as necessary to allow access to the knee joint. Dissection continued through skin and soft tissues using a scalpel. Hemostasis was obtained using electrocautery. The skin incision was followed by a median parapatellar arthrotomy. The leg was extended and the patella was everted. Following this, the leg was returned to flexed position. The distal femur was exposed and a drill hole was made in this for placement of the distal femoral jig. The distal femoral jig was set at 5? of valgus. The distal femoral cutting block was then placed in appropriate position, and an scott wing was used to confirm an appropriate amount of distal femur would be resected. The distal femoral resection was accomplished with 8 mm of bone being resected distally. After the distal femoral resection had been accomplished, the femur was measured and it measured a size 6. Medial lateral dimension also measured a size 6. A size 6 femoral cutting block was placed in position, and we were then able to accomplish the anterior, posterior and chamfer cuts. This jig was then removed and the notch guide was placed in position. With the notch guide in appropriate position, the notch was excised including resection of the anterior and posterior cruciate ligaments. This notch was to allow for the posterior stabilized femoral component. At this point, the femur was prepared and attention was directed to the proximal tibia. The posterior knee retractor was placed along with medial and lateral retractors. Further resection of the menisci was accomplished as we had better visualization. A complete meniscectomy was performed both medially and laterally with care being taken to protect the popliteus. Retractors were then placed so that the proximal tibia was well visualized. A drill hole was then made in the tibia for placement of the intramedullary guide. This guide was placed so that approximately 2 mm of bone would be resected from the deficient lateral tibial plateau. The intramedullary guide was utilized supplemented with an extramedullary guide to assure appropriate alignment for the proximal tibial resection. The proximal tibial jig was then evaluated, pinned in position, and the proximal tibial resection was accomplished without difficulty. The jig was removed and the proximal tibia was measured. It measured a size 7. A trial reduction was accomplished with a 9 mm insert. We had good balance to the knee with full extension and excellent varus-valgus stability. The femoral component was placed in position for the trial reduction, and the knee was placed through range of motion. There was excellent stability with excellent varus-valgus alignment with appropriate patellar tracking. This was felt to be the appropriate size insert. There was full extension and flexion without lift off and the rotation of the tibia was marked. Alignment was checked from the hip to the ankle, and this was noted to be appropriate as well. Attention was then directed to the patella. The patella was measured with a caliper. We resected sufficient patella to leave approximately 16 mm of patella remaining. Measurements of the patella then indicated that a size asymmetric 38 mm x 11 mm was the appropriate patellar size. We then placed the jig to drill for the 3 pegs of the press-fit patella, and these drill holes were made without incident. A trial patella was then placed and the knee was placed through range of motion. The patella was noted to track nicely without evidence of subluxation. The femur was prepared for a press-fit femur by drilling 2 holes for the femoral pegs. All trial components were subsequently removed. The tibial tray was then pinned into position, and we broached the tibia for the stem of the tibial component. Subsequently, 4 drill holes were made for placement of the press-fit tibia. This was accomplished without difficulty. Care was taken to assure appropriate rotation of the tibia as well as appropria te position on the proximal tibia. The tibial tray was completely seated on the proximal tibia. Following broaching, the tibial guide was removed, and all surfaces were copiously irrigated. The surfaces were then dried and a bone plug was placed into the distal femur. Exparel was also injected at this point. The Tritanium tibia was impacted into position. The beaded femur was then impacted into position in a cementless fashion. The tibial insert was placed. The patella was pressed into position with a patellar clamp. The knee was irrigated with 20 mL of Betadine and 500 mL of normal saline, and this was allowed to remain in the knee for 3-4 minutes. This was allowed to remain in the knee for 3 full minutes. The knee was then copiously irrigated and suctioned dry. Attention was then directed to closure. Closure was accomplished with 0 Vicryl in the fascial tissues, 2-0 Monocryl was used in the subcutaneous tissues, and the skin was closed with skin madiha followed by Exofin. A sterile dressing was then placed consisting of Telfa, 4 x 4's, ABDs, sterile soft roll, and an Richard wrap. The patient was returned the Recovery Room in a satisfactory condition. X-rays were obtained there. The patient will be discharged to the floor for postoperative rehabilitation and pain management. He'll be under inpatient status secondary his multiple medical comorbidities and risks associated with this.. Associated Problem List Diagnoses (1) Degenerative arthritis of left knee: Qualifiers: Osteoarthritis type: primary Qualified Code(s): M17.12 - Unilateral primary osteoarthritis, left knee
--- NOTE | 2020-01-05 12:50 | PM.PACU ---
PACU note Post-Anesthesia Exam: awake and vital signs stable Disposition: admitted
[2020-01-05 13:19] LABS: Glucose Point of Care 284 mg/dL (70-110)
--- NOTE | 2020-01-05 13:24 | SUR.PHASEI ---
1222 pt now complains of burning pain to rt knee see med given first ice to knee, see med given 1300 pt to floor pt awake alert talkative with staff dressing D/I FIRST ICE IN PLACE DISTAL PULSE STRONG AND REGULAR, BP 157/92, HRE 92, RESP 18 SATS 95%
--- NOTE | 2020-01-05 13:28 | SUR.PHASEI ---
1222 PT TRACER DONE, DR RODRIGUEZ AWARE, NO ORDERS GIVEN PT TO BE ON SLIDING SCALE ON FLOOR .
[2020-01-05] MEDS: chlorhexidine gluconate 0.12% Btl 473 mL 30 ML MUCOUS MEM ×3 (14:09→21:07)
--- NOTE | 2020-01-05 14:44 | PC.PT ---
CPM applied at 1415, increased 0-45d with no c/o discomfort from pt. Call light in reach.
--- NOTE | 2020-01-05 15:13 | PM.CONSULT ---
Providers/Reason For Consult Consulting Physican/Specialty*: Paul Henry/Hospitalist Reason for Consult*: Medical comorbidities Attending Physician: Amber Blunt MD Primary Care Provider: Contreras Faustin DO History of Present Illness History of Present Illness Chun Webster JR is a 54 year old pleasant gentleman with history of CHF, AFib, HTN, HLD, DM 2, psoriasis, for which she is receiving monthly Taltz and is being followed by video control engineer, RLS, other chronic problems, underwent left TKA due to years of chronic pain in the left knee. We were asked to follow him due to his multiple chronic medical problems. He is doing well postoperatively. He is awake alert, denies any discomfort. Denies any shortness of breath, chest pain or pressure, or any other complaints. He states that he was following with a public relations player previously in [place] (several different ones in the same clinic), but has recently moved here, and is planning to establish here with Dr. Johnson. He reports that back in June had quite significant edema and lost quite a bit of water weight with diuresis. He takes Lasix, spironolactone at home. He denies having any recent orthopnea, swelling. His heart rates have been staying under control. He takes carvedilol and Eliquis for atrial fibrillation. He takes Lantus and Humalog for diabetes, and says that his blood sugars could use better control, with values around 200s recently. He says otherwise has been at baseline state of health. States that psoriasis has improved quite significantly, and the past has had psoriatic lesions over 60% of his body. He does get intermittent joint issues, and for about a year has had pain and limited range of motion in the left shoulder for which he states is going to further follow-up with orthopedics. Review of Systems Const: Denies: fever(s), chills, body aches or malaise Eyes: Denies: change in vision or eye redness ENMT: Denies: throat pain, oral sores or ear or mastoid pain Card: Denies: chest pain, edema, pre-syncope or dyspnea on exertion Resp: Denies: dyspnea, productive cough, change in phlegm color or hemoptysis GI: Denies: abdominal pain, nausea, vomiting, diarrhea, constipation, hematochezia or melena : Denies: flank pain, difficulty urinating, urinary frequency or hematuria Musc: Reports: joint pain; Denies: joint swelling, joint redness or joint warmth Skin/Breast: Denies: rash, sores or new lesions Neuro: Denies: headache(s), numbness in extremities, weakness in extremities, dizziness, confusion or seizure-like activity Endo: Denies: polyuria or polydipsia Max/Lymph: Denies: easy bleeding or purpura All/Imm: Denies: urticaria, throat swelling or tongue swelling Meds/Allergies Home Medications and Allergies Home Medications Medication Instructions Recorded Confirmed Last Taken Type Lantus Solostar U-100 Insulin 45 unit SUBCUT BID 05/27/19 01/05/20 01/04/20 History amlodipine 10 mg PO DAILY 05/27/19 01/05/20 01/04/20 History lisinopril-hydrochlorothiazide 2 tab PO QAM 05/27/19 01/05/20 01/04/20 History multivitamin [Multiple Vitamins] 1 tab PO DAILY 05/27/19 01/05/20 01/04/20 History ropinirole 1 mg PO BID 05/27/19 01/05/20 01/04/20 History amiodarone 200 mg PO DAILY 12/31/19 01/05/20 01/03/20 History apixaban [Eliquis] 5 mg PO BID 12/31/19 01/05/20 12/31/19 History aripiprazole 5 mg PO DAILY 12/31/19 01/05/20 01/04/20 History carvedilol 6.25 mg PO BID 12/31/19 01/05/20 01/04/20 History furosemide 40 mg PO BID 12/31/19 01/05/20 01/04/20 History hydroxyzine HCl 25 mg PO TID PRN 12/31/19 01/05/20 01/05/20 06:30 History potassium chloride 20 meq PO BID 12/31/19 01/05/20 01/04/20 History spironolactone 25 mg PO DAILY 12/31/19 01/05/20 01/04/20 History Allergies Allergy/AdvReac Type Severity Reaction Status Date / Time trazodone Allergy Unknown Verified 12/30/19 09:19 Current Medications Current Medications Generic Name Dose Route Start Last Admin Trade Name Freq PRN Reason Stop Dose Admin Chlorhexidine Gluconate 30 ml 01/05/20 13:04 01/05/20 14:09 Perigard MUCOUS MEM 30 ml QID [place] Administration PFSH Acute PFSH: Medical History Angioedema Atrial fibrillation Congestive heart failure Diabetes Hyperlipidemia Hypertension Psoriasis Restless leg syndrome Surgical History H/O knee surgery Hx of cardiac cath Family History Father Cancer Lung Mother Cancer Brain Other Diabetes Hypertension Social History Smoking and tobacco status: never smoked Alcohol intake: current Alcohol intake frequency: holidays/special occasions only Substance/Drug Use: never Household members: friend(s) Housing: Apartment Vitals/I&O/Wt Last Vital Signs Temp 98.3 F 01/05/20 13:30 Pulse 88 01/05/20 13:30 Resp 18 01/05/20 13:30 BP 145/88 01/05/20 13:30 Pulse Ox 94 01/05/20 13:30 01/05/20 01/05/20 01/05/20 06:59 14:59 22:59 Intake Total 1370 / 1370 Output Total 210 / 210 Balance 1160 / 1160 Physical Exam Const: COMMON NORMALS: no acute distress and patient oriented x3 HENMT: COMMON NORMALS: oropharynx normal Neck/C-Spine: COMMON NORMALS: no JVD Resp: COMMON NORMALS: normal respiratory effort and clear to auscultation bilaterally AUSCULTATION: clear to auscultation bilaterally Cardio: COMMON NORMALS: no JVD, regular rhythm, S1 normal heart sound present, S2 normal heart sound present and No murmurs present (Cardio) RHYTHM: regular rhythm HEART SOUNDS: S1 normal heart sound present and S2 normal heart sound present GI: COMMON NORMALS: Normal to inspection, nondistended, normoactive bowel sounds present, Soft to palpation and non-tender PALPATION: Yes Soft to palpation Extremity: OTHER: LLE in CPM machine. Clean dressing in place. No ankle swelling. Neuro: COMMON NORMALS: patient oriented x3 and moves all extremities Skin: COMMON NORMALS: no rashes or lesions noted GENERAL SKIN EXAM: no rashes or lesions noted Urinary Catheter Management^: F: Cath Placed During This Visit: yes Urinary Catheter Date of Insertion: 01/05/20 Urinary Catheter Time of Insertion: 10:00 A&P Assessment and plan (1) S/P total knee arthroplasty: Status post left knee TKA due to chronic pain. Will need to be watched closely after surgery given history of psoriasis and immunosuppressive medication. Noted pancytopenia on laboratory work-up 6 days ago, with WBC count 3.3, hemoglobin 10.9, low platelets as well at 95,000. Will reassess CBC. Currently denies any suggestion of infection. Prior to the elective procedure is been at baseline state of health. He is doing well postoperatively. Continue care as per orthopedic service. Status: Acute Additional A&P Information CHF: Ejection fraction on our echo from April 55%. Is to be diastolic dysfunction. Reported episode of CHF in June at which time lost quite a bit of water weight with diuresis. Reports history of coronary angiogram, denies any history of coronary stenting. Has been following with cardiology, and is going to establish care with Dr. Bansal. Currently CHF is not in exacerbation. Denies any recent orthopnea, swelling, shortness of breath on exertion, PND. No chest pain or pressure. Once blood pressure stabilizes postoperatively, and reestablish oral intake, resume usual diuretic. Resume lisinopril if renal function remained stable. Follow-up with cardiology. Check CMP. A. fib: continue carvedilol. Resume Eliquis HTN, monitor blood pressures. Continue amlodipine. If renal function remained stable may resume lisinopril, HCTZ. Spironolactone. Lasix. HLD, not currently on statin. DM 2, continue insulin, at home takes Lantus 70 units twice daily, as well as says takes Humalog 16 units before meals. Lantus dose for now decreased down to 45 units while in the hospital. Monitor blood glucose. We will add sliding scale insulin. Consistent carbohydrate diet. Psoriasis, for which she is receiving monthly Taltz and is being followed by video control engineer, RLS Left shoulder chronic pain and reduced range of motion: Continue with plans for follow-up. Consult Attestations Medical Necessity Statement: Per primary team, continue monitoring following left TKA in a gentleman with multiple medical committees including CHF, A. fib, diabetes, as well as psoriasis with immunosuppressive treatment with pancytopenia. Coding Level of Care Code Acute Coffee Maker Servicer for Shreya Espinoza Diagnoses S/P total knee arthroplasty Z96.659
[2020-01-05] MEDS: oxyCODONE 5 mg IR Tab/Cap PO ×2 (15:39→21:09)
[2020-01-05 16:22] LABS: Basophils % 0.3 %; Eosinophils % 0.1 %; Hematocrit 33.1 % (42.0-52.0); Lymphocytes # 0.5 10^3/uL (0.8-4.8); Lymphocytes % 7.2 %; Mean Corpuscular HGB Conc 30.2 g/dL (30.0-36.0); Mean Corpuscular Hemoglobin 23.6 pg (28.0-34.0); Mean Corpuscular Volume 78.3 fL (80-94); Mean Platelet Volume 12.1 fL (7.4-10.4); Monocytes # 0.3 10^3/uL (0.2-0.9); Neutrophils # 6.12 10^3/uL (1.8-7.7); Neutrophils % 87.8 %; Nucleated Red Blood Cells % 0 %; Platelet Count 94 10^3/cmm (130-400); Red Blood Count 4.23 10^6/uL (4.1-5.3); Red Cell Distribution Width 17.7 % (12.1-15.1)
[2020-01-05 16:43] LABS: Alanine Aminotransferase 39 U/L (0-41); Albumin Level 3.8 g/dL (3.5-5.2); Alkaline Phosphatase 178 IU/L (40-130); Anion Gap 12.8 (5-19); Aspartate Amino Transferase 44 U/L (0-40); Blood Urea Nitrogen 15 mg/dL (6-20); Calcium 7.8 mg/dL (8.5-10.5); Carbon Dioxide 25 mmol/L (22-29); Chloride 100 mmol/L (98-107); Globulin 3.2 g/dL (1.3-4.6); Glucose 330 mg/dL (65-115); Osmolality Calculated 285 mOsm/kg (285-295); Potassium 4.8 mmol/L (3.5-5.1); Sodium 133 mmol/L (136-145)
[2020-01-05 17:00] LABS: Slide Review Slide Review Perform
[2020-01-05] MEDS: mupirocin oint 22 gm 1 APPLIC NASAL (17:46)
[2020-01-05] MEDS: iron polysaccharide complex 150 mg Capsule PO (17:46)
[2020-01-05] MEDS: ropinirole 1 mg Tablet PO (17:47)
[2020-01-05] MEDS: sennosides-docusate Tablet 2 TAB PO (17:47)
[2020-01-05] MEDS: FUROsemide 40 mg Tablet PO (17:47)
[2020-01-05] MEDS: potassium chloride ER 10 mEq Tablet 20 MEQ PO (17:47)
[2020-01-05] MEDS: apixaban 5 mg Tablet PO (17:47)
[2020-01-05] MEDS: carvedilol 6.25 mg Tablet PO (17:47)
[2020-01-05] MEDS: calcium carbonate 500 mg Chew Tablet 1000 MG PO (17:47)
--- NOTE | 2020-01-05 17:59 | PC.NURSE ---
Removed CMP machine. Legs locked straight on bed, call light in reach.
[2020-01-05] MEDS: insulin glargine 100 units/1 mL 45 UNIT SUBCUT (19:24)
[2020-01-05] MEDS: CELEcoxib 200 mg Capsule PO (21:09)
[2020-01-05 21:35] LABS: Glucose Point of Care 364 mg/dL (70-110)
[2020-01-06] VITALS (9 sets, daily range): BP systolic 103–122; BP diastolic 62–74; PULSE 80–92; RESP 14–20; TEMP 36.9–37.1; O2SAT 90–93
[2020-01-06 05:59] LABS: Basophils # 0.1 10^3/uL (0.0-0.1); Basophils % 0.7 %; Eosinophils # 0.1 10^3/uL (0.0-0.8); Eosinophils % 0.9 %; Hematocrit 27.8 % (42.0-52.0); Hemoglobin 8.1 g/dL (11.7-16.6); Lymphocytes # 0.9 10^3/uL (0.8-4.8); Lymphocytes % 11.9 %; Mean Corpuscular HGB Conc 29.1 g/dL (30.0-36.0); Mean Corpuscular Hemoglobin 23.2 pg (28.0-34.0); Mean Corpuscular Volume 79.7 fL (80-94); Monocytes # 0.8 10^3/uL (0.2-0.9); Neutrophils # 5.69 10^3/uL (1.8-7.7); Neutrophils % 75.1 %; Nucleated Red Blood Cells % 0 %; Platelet Count 99 10^3/cmm (130-400); Red Blood Count 3.49 10^6/uL (4.1-5.3); Red Cell Distribution Width 17.9 % (12.1-15.1); White Blood Count 7.6 10^3/uL (4.0-10.0)
[2020-01-06 06:29] LABS: Slide Review Slide Review Perform
[2020-01-06 06:32] LABS: Anion Gap 11.1 (5-19); Blood Urea Nitrogen 19 mg/dL (6-20); Calcium 8.2 mg/dL (8.5-10.5); Carbon Dioxide 27 mmol/L (22-29); Chloride 98 mmol/L (98-107); Glomerular Filtration Rate 78.2 mL/min (90-130); Glucose 336 mg/dL (65-115); Osmolality Calculated 284 mOsm/kg (285-295); Potassium 4.1 mmol/L (3.5-5.1); Sodium 132 mmol/L (136-145)
[2020-01-06 07:00] LABS: Glucose Point of Care 307 mg/dL (70-110)
[2020-01-06] MEDS: oxyCODONE 5 mg IR Tab/Cap PO ×4 (09:44→23:21)
[2020-01-06] MEDS: ropinirole 1 mg Tablet PO ×2 (09:50→17:34)
[2020-01-06] MEDS: insulin glargine 100 units/1 mL 45 UNIT SUBCUT (09:50)
[2020-01-06] MEDS: sennosides-docusate Tablet 2 TAB PO ×2 (09:51→17:34)
[2020-01-06] MEDS: potassium chloride ER 10 mEq Tablet 20 MEQ PO ×2 (09:51→17:35)
[2020-01-06] MEDS: CELEcoxib 200 mg Capsule PO ×2 (09:51→23:21)
[2020-01-06] MEDS: amiodarone 200 mg Tablet PO (09:52)
[2020-01-06] MEDS: iron polysaccharide complex 150 mg Capsule PO ×2 (09:52→17:34)
[2020-01-06] MEDS: amlodipine 10 mg Tablet PO (09:52)
[2020-01-06] MEDS: ARIPiprazole 10 mg Tablet 5 MG PO (09:52)
[2020-01-06] MEDS: multivitamin therapeutic Tablet 1 TAB PO (09:52)
[2020-01-06] MEDS: apixaban 5 mg Tablet PO ×2 (09:53→17:34)
[2020-01-06] MEDS: FUROsemide 40 mg Tablet PO ×2 (09:53→17:34)
[2020-01-06] MEDS: mupirocin oint 22 gm 1 APPLIC NASAL ×2 (09:53→17:34)
[2020-01-06] MEDS: carvedilol 6.25 mg Tablet PO ×2 (09:53→17:35)
[2020-01-06] MEDS: cholecalciferol (vitamin D3) 1,000 unit Tablet 1000 UNIT PO (09:53)
[2020-01-06] MEDS: chlorhexidine gluconate 0.12% Btl 473 mL 30 ML MUCOUS MEM ×4 (09:53→23:22)
[2020-01-06] MEDS: spironolactone 25 mg Tablet PO (09:53)
[2020-01-06] MEDS: vancomycin 1,000 MG in sodium chloride 0.9% 250 ML 250 MG IV (09:54)
--- NOTE | 2020-01-06 10:57 | ANE.PACU2 ---
Inpatient post-anesthesia follow up: Airway intact: Yes Vital signs: Temperature 98.7 F Pulse Rate 87 Respiratory Rate 16 Blood Pressure 103/64 Pulse Oximetry 93 Oxygen Delivery Me thod [ Room Air Current Rate & Del freeman] Oxygen Delivery Me thod Room Air Oxygen Flow Rate 8 Fraction of Inspir ed Oxygen Hydration adequate: Yes Nausea and vomiting: No Pain level: 7 Mental status: Baseline Additional Comments: Block worked well for patient
[2020-01-06] MEDS: calcium carbonate 500 mg Chew Tablet 1000 MG PO ×2 (11:00→17:34)
[2020-01-06 11:14] LABS: Glucose Point of Care 424 mg/dL (70-110)
--- NOTE | 2020-01-06 11:50 | P.PN_ITS ---
Subjective Subjective: Interval history: He has been having pain in his left knee, but otherwise doing all right. No chest pain or pressure. No shortness of breath. Vitals/I&O/Wt Last Vital Signs Temp 98.4 F 01/06/20 11:39 Pulse 89 01/06/20 11:39 Resp 20 H 01/06/20 11:39 BP 105/62 01/06/20 11:39 Pulse Ox 92 01/06/20 11:39 01/05/20 01/06/20 01/06/20 22:59 06:59 14:59 Intake Total 580 / 1950 600 / 2550 120 / 120 Output Total 950 / 1160 700 / 1860 Balance -370 / 790 -100 / 690 120 / 120 Physical Exam Const: COMMON NORMALS: no acute distress and patient oriented x3 HENMT: COMMON NORMALS: oropharynx normal Neck/C-Spine: COMMON NORMALS: no JVD Resp: COMMON NORMALS: normal respiratory effort and clear to auscultation bilaterally AUSCULTATION: clear to auscultation bilaterally Cardio: COMMON NORMALS: no JVD, regular rhythm, S1 normal heart sound present, S2 normal heart sound present and No murmurs present (Cardio) RHYTHM: regular rhythm HEART SOUNDS: S1 normal heart sound present and S2 normal heart sound present GI: COMMON NORMALS: Normal to inspection, nondistended, normoactive bowel sounds present, Soft to palpation and non-tender PALPATION: Yes Soft to palpation Extremity: OTHER: LLE in compression dressing. No ankle swelling. Neuro: COMMON NORMALS: patient oriented x3 and moves all extremities Skin: COMMON NORMALS: no rashes or lesions noted GENERAL SKIN EXAM: no rashes or lesions noted Urinary Catheter Management^: F: Cath Placed During This Visit: yes Reason for Continuing Indwelling Catheter: Perioperative Use in Selected Surgeries Urinary Catheter Date of Insertion: 01/05/20 Urinary Catheter Time of Insertion: 10:00 Data : 01/06/20 05:23 01/06/20 05:23 A&P Assessment and plan (1) S/P total knee arthroplasty: Some left knee pain, but otherwise doing well. Discussed with him decreasing hemoglobin down to 8.1. Is not unexpected after his surgery. Would follow-up to make sure to stabilize. Previously with leukopenia, but currently this appears to be improved. No ho tropenia. Platelets persistently low, but appear to be stable around 100 K. Status post left knee TKA due to chronic pain. Pending COVID-19 screening. Pending arrangements for disposition. Will need to be watched closely after surgery given history of psoriasis and immunosuppressive medication. Currently denies any suggestion of infection. Prior to the elective procedure is been at baseline state of health. He is doing well postoperatively. Continue care as per orthopedic service. Status: Acute Additional A&P Information Liver parameter elevation: Noted chronic location of alkaline phosphatase. Mild ovation of AST. Reviewing back his imaging, in May had an ultrasound of his right upper quadrant with enlarged liver at 20 cm, as well as some possible nodularity noted concerning for possible progression to cirrhosis. Discussed this with him. He says that his mother had history of fatty liver infiltration, and that he intends to follow-up with his primary care provider with regards to this. States that he understands the concerns. States that he does not drink alcohol. CHF: Ejection fraction on our echo from April 55%. Is to be diastolic dysfunction. Reported episode of CHF in June at which time lost quite a bit of water weight with diuresis. Reports history of coronary angiogram, denies any history of coronary stenting. Has been following with cardiology, and is going to establish care with Dr. Bansal. Currently CHF is not in exacerbation. Denies any recent orthopnea, swelling, shortness of breath on exertion, PND. No chest pain or pressure. Once blood pressure stabilizes postoperatively, and reestablish oral intake, resume usual diuretic. Resume lisinopril if renal function remained stable. Follow-up with cardiology. Check CMP. A. fib: continue carvedilol. Resume Eliquis HTN, monitor blood pressures. Continue amlodipine. If renal function remained stable may resume lisinopril, HCTZ. Spironolactone. Lasix. HLD, not currently on statin. DM 2, sugars are high. Will increase Lantus to 60 units twice a day. Add Humalog 10 units with meals. At home takes Lantus 70 units twice daily, as well as says takes Humalog 16 units before meals. Consistent carbohydrate diet. Psoriasis, for which she is receiving monthly Taltz and is being followed by delivery driver/supervisor, RLS Left shoulder chronic pain and reduced range of motion: Continue with plans for follow-up. Attestations Medical Necessity Statement*: Continue hospitalization for postoperative management after left TKA with multiple chronic underlying illnesses, disposition arrangements. Coding Level of Care Code Acute Foreign Broadcast Specialist for Shreya Espinoza Diagnoses S/P total knee arthroplasty Z96.659
[2020-01-06 12:40] LABS: Glucose Point of Care 375 mg/dL (70-110)
--- NOTE | 2020-01-06 13:12 | PC.NURSE ---
Dr. Blunt in to see patient, removed dressing and placed Island dressing to left knee, EDSON perea and SCAR applied to left leg.
--- NOTE | 2020-01-06 14:27 | PM.PN ---
Subjective Subjective: Interval history: Patient is first postoperative day following left total knee arthroplasty. He is doing well, however, he has significant concerns regarding his safety at home. His lawn is very uneven, and his home will not accommodate the use of a walker. He lives alone and feels that he would be very unsafe returning to his normal environment. Medications: Reviewed: Yes Vitals/I&O/Wt Last Vital Signs Temp 98.4 F 01/06/20 11:39 Pulse 89 01/06/20 11:39 Resp 14 01/06/20 13:38 BP 105/62 01/06/20 11:39 Pulse Ox 92 01/06/20 11:39 01/05/20 01/06/20 01/06/20 22:59 06:59 14:59 Intake Total 580 / 2050 600 / 2650 560 / 560 Output Total 950 / 1160 700 / 1860 550 / 550 Balance -370 / 890 -100 / 790 Physical Exam Const: COMMON NORMALS: no acute distress, average body habitus, patient oriented x3 and alert GENERAL APPEARANCE: cooperative and comfortable ORIENTATION/CONSCIOUSNESS: Yes awake HENMT: COMMON NORMALS: normocephalic and atraumatic HEAD & SCALP: normocephalic and atraumatic Eye: GENERAL EYE: appearance normal, both eyes and all related structures Chest: COMMONS NORMALS: normal inspection of the chest Resp: COMMON NORMALS: normal respiratory effort EFFORT & INSPECTION: Yes able to speak in complete sentences and Yes symmetric chest movement Extremity: COMMON NORMALS: normal to inspection LEFT LOWER EXTREMITY: Yes knee joint (Patient status post left total knee arthroplasty. His dressing is removed incision is benign. There is no evidence of infection or DVT.) Left knee: Yes inspection (Wound is benign), Yes palpation (Minimal to no tenderness, but there is slight knee effusion as expected post total knee arthroplasty.), Yes ROM (Not evaluated.) and Yes neurovascular exam (Intact.) Neuro: COMMON NORMALS: patient oriented x3 SENSORIUM/ORIENTATION: Yes alert Psych: COMMON NORMALS: mental status grossly normal APPEARANCE: Yes grossly normal ATTITUDE: Yes calm and Yes engaged ATTENTION/CONCENTRATION: Yes attention grossly intact Skin: COMMON NORMALS: no rashes or lesions noted GENERAL SKIN EXAM: no rashes or lesions noted Urinary Catheter Management^: F: Cath Placed During This Visit: yes Reason for Continuing Indwelling Catheter: Perioperative Use in Selected Surgeries Urinary Catheter Date of Insertion: 01/05/20 Urinary Catheter Time of Insertion: 10:00 Data : 01/06/20 05:23 01/06/20 05:23 A&P Assessment and plan (1) Degenerative arthritis of left knee: Patient's degenerative osteoarthritis of the knee was addressed with total knee arthroplasty. He is doing well on the first postoperative day. He will likely require nursing home as his living situation is deemed unsafe for discharge to home. He notes that his home would not be able to accommodate a walker, he has a large yard which has caused him to fall even prior to his surgery. We will evaluate him for nursing home. Additionally, he will require an additional night secondary to decreased H&H which will need to be monitored. Status: Acute Qualifiers: Osteoarthritis type: primary Qualified Code(s): M17.12 - Unilateral primary osteoarthritis, left knee (2) S/P total knee arthroplasty: Status: Acute Qualifiers: Laterality: left Qualified Code(s): Z96.652 - Presence of left artificial knee joint Attestations Medical Necessity Statement*: Patient requires inpatient evaluation for decreased H&H and continued rehabilitation to promote safety at time of discharge. Coding Level of Care Code Acute Strategic Marketing Associate for Shreya Fwd Exam Comprehensive Diagnoses Degenerative arthritis of left knee M17.12 Osteoarthritis type: primary S/P total knee arthroplasty Z96.652 Laterality: left
[2020-01-06] MEDS: TRAMadol 50 mg Tablet PO (16:07)
[2020-01-06 16:48] LABS: Glucose Point of Care 411 mg/dL (70-110)
[2020-01-06] MEDS: acetaminophen 500 mg Tablet 1000 MG PO (17:35)
[2020-01-06 19:21] LABS: Coronavirus Lab Test PTC Negative
[2020-01-06 21:55] LABS: Glucose Point of Care 348 mg/dL (70-110)
[2020-01-06] MEDS: insulin glargine 100 units/1 mL 60 UNIT SUBCUT (23:22)
[2020-01-07] VITALS (13 sets, daily range): BP systolic 105–152; BP diastolic 61–83; PULSE 78–90; RESP 16–20; TEMP 36.4–37.3; O2SAT 91–97
[2020-01-07] MEDS: acetaminophen 500 mg Tablet 1000 MG PO ×2 (02:10→08:44)
[2020-01-07 06:02] LABS: Basophils # 0.1 10^3/uL (0.0-0.1); Eosinophils # 0.3 10^3/uL (0.0-0.8); Eosinophils % 5.2 %; Hematocrit 24.8 % (42.0-52.0); Hemoglobin 7.4 g/dL (11.7-16.6); Lymphocytes # 1.2 10^3/uL (0.8-4.8); Lymphocytes % 20.4 %; Mean Corpuscular HGB Conc 29.8 g/dL (30.0-36.0); Mean Corpuscular Hemoglobin 23.9 pg (28.0-34.0); Monocytes # 0.8 10^3/uL (0.2-0.9); Monocytes % 13.4 %; Neutrophils # 3.58 10^3/uL (1.8-7.7); Neutrophils % 59.7 %; Nucleated Red Blood Cells % 0 %; Platelet Count 84 10^3/cmm (130-400)
[2020-01-07 06:55] LABS: Glucose Point of Care 298 mg/dL (70-110)
[2020-01-07 07:40] LABS: Slide Review Slide Review Perform
[2020-01-07] MEDS: FUROsemide 40 mg Tablet PO (08:43)
[2020-01-07] MEDS: CELEcoxib 200 mg Capsule PO (08:43)
[2020-01-07] MEDS: calcium carbonate 500 mg Chew Tablet 1000 MG PO (08:43)
[2020-01-07] MEDS: multivitamin therapeutic Tablet 1 TAB PO (08:43)
[2020-01-07] MEDS: ARIPiprazole 10 mg Tablet 5 MG PO (08:43)
[2020-01-07] MEDS: sennosides-docusate Tablet 2 TAB PO (08:43)
[2020-01-07] MEDS: potassium chloride ER 10 mEq Tablet 20 MEQ PO (08:44)
[2020-01-07] MEDS: ropinirole 1 mg Tablet PO (08:44)
[2020-01-07] MEDS: oxyCODONE 5 mg IR Tab/Cap PO ×2 (08:47→11:20)
[2020-01-07] MEDS: amlodipine 10 mg Tablet PO (08:49)
[2020-01-07] MEDS: amiodarone 200 mg Tablet PO (08:49)
[2020-01-07] MEDS: apixaban 5 mg Tablet PO (08:49)
[2020-01-07] MEDS: cholecalciferol (vitamin D3) 1,000 unit Tablet 1000 UNIT PO (08:49)
[2020-01-07] MEDS: iron polysaccharide complex 150 mg Capsule PO (08:49)
[2020-01-07] MEDS: carvedilol 6.25 mg Tablet PO (08:49)
[2020-01-07] MEDS: spironolactone 25 mg Tablet PO (08:49)
[2020-01-07] MEDS: insulin glargine 100 units/1 mL 60 UNIT SUBCUT (09:05)
--- NOTE | 2020-01-07 09:18 | P.PN_ITS ---
Subjective Subjective: Interval history: He has had to spend quite a bit of time on the phone with [facility] this morning, but otherwise says he is doing all right. Walked with physical therapy in the [place]. Still has pain in the left knee. Otherwise says the breathing is been comfortable. Denies any chest pain or pressure. Had no dizziness or lightheadedness. Vitals/I&O/Wt Last Vital Signs Temp 97.8 F 01/07/20 07:39 Pulse 88 01/07/20 07:39 Resp 18 01/07/20 08:47 BP 123/61 01/07/20 07:39 Pulse Ox 97 01/07/20 07:39 01/06/20 01/07/20 01/07/20 22:59 06:59 14:59 Intake Total 240 / 800 480 / 480 Output Total 0 / 550 1225 / 1775 Balance 240 / 250 -1225 / -975 480 / 480 Physical Exam Const: COMMON NORMALS: no acute distress and patient oriented x3 OTHER: Does appear somewhat pale. HENMT: COMMON NORMALS: oropharynx normal Neck/C-Spine: COMMON NORMALS: no JVD Resp: COMMON NORMALS: normal respiratory effort and clear to auscultation bilaterally AUSCULTATION: clear to auscultation bilaterally Cardio: COMMON NORMALS: no JVD, regular rhythm, S1 normal heart sound present, S2 normal heart sound present and No murmurs present (Cardio) RHYTHM: regular rhythm HEART SOUNDS: S1 normal heart sound present and S2 normal heart sound present GI: COMMON NORMALS: Normal to inspection, nondistended, normoactive bowel sounds present, Soft to palpation and non-tender PALPATION: Yes Soft to palpation Extremity: OTHER: Some swelling of the left knee, but otherwise no erythema or bruising. Neuro: COMMON NORMALS: patient oriented x3 and moves all extremities Skin: COMMON NORMALS: no rashes or lesions noted GENERAL SKIN EXAM: no rashes or lesions noted Urinary Catheter Management^: F: Cath Placed During This Visit: yes Reason for Continuing Indwelling Catheter: Perioperative Use in Selected Surgeries Urinary Catheter Date of Insertion: 01/05/20 Urinary Catheter Time of Insertion: 10:00 Data : 01/07/20 04:50 01/06/20 05:23 A&P Assessment and plan (1) S/P total knee arthroplasty: He is still bothered some by pain in the left knee. Otherwise subjectively is doing well. Hemoglobin trend down to 7.4. Will give 1 unit PBC transfusion given it has been a continued gradual decline and he is on anticoagulation. Previously with leukopenia, but currently this appears to be improved. No neutropenia. Platelets persistently low, but appear to be stable around 100 K. Status post left knee TKA due to chronic pain. COVID-19 screening negative. DC isolation. Pending arrangements for disposition. Will need to be watched closely after surgery given history of psoriasis and immunosuppressive medication. Currently denies any suggestive symptoms of of infection. Prior to the elective procedure is been at [facility]. Continue care as per orthopedic service. Status: Acute Qualifiers: Laterality: left Qualified Code(s): Z96.652 - Presence of left artificial knee joint Additional A&P Information Liver parameter elevation: Noted chronic location of alkaline phosphatase. Mild ovation of AST. Reviewing back his imaging, in May had an ultrasound of his right upper quadrant with enlarged liver at 20 cm, as well as some possible nodularity noted concerning for possible progression to cirrhosis. Discussed this with him. He says that his mother had history of fatty liver infiltration, and that he intends to follow-up with his primary care provider with regards to this. States that he understands the concerns. States that he does not drink alcohol. CHF: Not in exacerbation. Diastolic chronic CHF, ejection fraction on our echo from April 55%. Reported episode of CHF in June at which time lost quite a bit of water weight with diuresis. Reports history of coronary angiogram, denies any history of coronary stenting. Has been following with cardiology, and is going to establish care with Dr. Johnson. Denies any recent orthopnea, swelling, shortness of breath on exertion, PND. No chest pain or pressure. Continue usual diuretic. Resume lisinopril. Follow-up with cardiology. A. fib: continue carvedilol. Resume Eliquis HTN, monitor blood pressures. Continue amlodipine. If renal function remained stable may resume lisinopril, HCTZ. Spironolactone. Lasix. HLD, not currently on statin. DM 2, Cont insulin. At home takes Lantus 70 units twice daily, as well as says takes Humalog 16 units before meals. Consistent carbohydrate diet. Psoriasis, for which she is receiving monthly Taltz and is being followed by building specialist, ROBEL Left shoulder chronic pain and reduced range of motion: Continue with plans for follow-up. Attestations Medical Necessity Statement*: Continue hospitalization for postoperative management after left TKA, treatment of acute blood loss anemia in the setting of anticoagulation, as well as multiple comorbidities including CHF. Disposition arrangements. Coding Level of Care Code Acute File System Installer for Shreya Espinoza Diagnoses S/P total knee arthroplasty Z96.652 Laterality: left
[2020-01-07] MEDS: chlorhexidine gluconate 0.12% Btl 473 mL 30 ML MUCOUS MEM ×2 (09:54→13:22)
[2020-01-07] MEDS: mupirocin oint 22 gm 1 APPLIC NASAL (09:54)
--- NOTE | 2020-01-07 10:50 | PC.NURSE ---
nurse called Dr. Blunt due to pt pain still being high after giving OXY IR 5MG PRN and hour ago. Dr Blunt orderd this nurse to give 5 mg OXY IR now and then change order to OXY IR 10 mg Q4H PRN.
[2020-01-07 11:08] LABS: Glucose Point of Care 402 mg/dL (70-110)
--- NOTE | 2020-01-07 13:47 | P.DS_ITS ---
Discharge Providers Date of Admission: 01/05/20 12:10 Date of Discharge: January 07, 2020 Attending Provider at Admission: Amber Blunt MD Attending Provider at Discharge: Amber Blunt MD Primary Care Provider: Contreras Faustin DO Diagnoses at Discharge Discharge Diagnosis (1) S/P total knee arthroplasty: Status: Acute Problem details: Left total knee arthroplasty utilizing the following Aman implants: A size 6 triathlon posterior stabilized press-fit left femoral component, a size 7 triathlon titanium tibial component, press-fit, a triathlon tibial bearing insert size 7 x 9 mm, and an asymmetric 38 mm x 11 mm patella Qualifiers: Laterality: left Qualified Code(s): Z96.652 - Presence of left artificial knee joint Reason for Visit Reason for Visit: total knee arthoplasty Hospital Course Hospital Course: Patient was admitted for same-day surgery. The procedure performed was the following: Left total knee arthroplasty utilizing the following Aman implants: A size 6 triathlon posterior stabilized press-fit left femoral component, a size 7 triathlon titanium tibial component, press-fit, a triathlon tibial bearing insert size 7 x 9 mm, and an asymmetric 38 mm x 11 mm patella. This was well-tolerated. Secondary to the patient's multiple medical issues including hypertension, diabetes, and cardiac issues, the patient was admitted to the hospital for postoperative rehabilitation and medical management. He was seen by the hospitalist service during his hospital stay. He was evaluated for home health as well as senior living. Secondary to multiple medical comorbidities, the patient will require senior living at the time of discharge. He has been approved for this and transfer will be arranged today. He did require transfusion prior to discharge as well. There are no complications postoperatively. He remains neurologically intact without evidence of DVT. The patient has been accepted [facility] and will be discharged there. Discharge Summary: The patient was admitted on the day following his total knee arthroplasty. He did well without complication, except, he did require a transfusion of 1 unit of packed red blood cells. Additionally, he required the services of the hospitalist team secondary to his diabetes, hypertension, and cardiac issues. The patient is unsafe for discharge to home on the second postop day, and he has been accepted to [facility]. He will be discharged to there. Physical Exam Const: COMMON NORMALS: no acute distress, average body habitus, patient oriented x3 and alert GENERAL APPEARANCE: cooperative and comfortable ORIENTATION/CONSCIOUSNESS: Yes awake HENMT: COMMON NORMALS: normocephalic and atraumatic HEAD & SCALP: normocephalic and atraumatic Eye: GENERAL EYE: appearance normal, both eyes and all related structures Chest: COMMONS NORMALS: normal inspection of the chest Resp: COMMON NORMALS: normal respiratory effort EFFORT & INSPECTION: Yes able to speak in complete sentences and Yes symmetric chest movement Extremity: COMMON NORMALS: normal to inspection RIGHT LOWER EXTREMITY: Yes knee joint (Patient's wound is benign. There is no drainage.) Right knee: Yes inspection (There is some ecchymosis about the lower extremity, but there is no significant swelling.), Yes palpation (There is no calf tenderness to palpation.), Yes ROM (Nontender.) and Yes neurovascular exam (Intact with no evidence of DVT.) Neuro: COMMON NORMALS: patient oriented x3 SENSORIUM/ORIENTATION: Yes alert Psych: COMMON NORMALS: mental status grossly normal APPEARANCE: Yes grossly normal ATTITUDE: Yes calm and Yes engaged ATTENTION/CONCENTRATION: Yes attention grossly intact Skin: COMMON NORMALS: no rashes or lesions noted GENERAL SKIN EXAM: no rashes or lesions noted Urinary Catheter Management^: F: Cath Placed During This Visit: yes Reason for Continuing Indwelling Catheter: Perioperative Use in Selected Surgeries Urinary Catheter Date of Insertion: 01/05/20 Urinary Catheter Time of Insertion: 10:00 Discharge Data Data Completed and Pending: Completed Studies During Hospitalization Category Date Time Status XR knee LT 1-2V 7 3560 Urgent Exams 01/05/20 12:30 Completed Pending at discharge Category Date Time Status Complete Blood Co unt w/Auto AM LABS Lab 01/08/20 04:00 Ordered Leukocyte Reduced RBC Routine Lab 01/07/20 10:12 Results Type and Screen R outine Lab 01/07/20 10:12 Results Pathology: Surgic al [PTH] Routine Pth 01/05/20 12:16 Received Labs from last 24 hours 01/07/20 01/07/20 01/07/20 10:45 10:12 06:30 WBC RBC Hgb Hct MCV MCH MCHC RDW Plt Count MPV Neut % (Auto) Lymph % (Auto) [place] % (Auto) Eos % (Auto) Baso % (Auto) Neut # (Auto) Lymph # (Auto) [place] # (Auto) Eos # (Auto) Baso # (Auto) Nucleated RBC % (a uto) Nucleated RBCs # POC Glucose 402 298 Nasal/Oral COVID-1 9 PCR Blood Type O Negative Rho(D) Type Negative Antibody Screen Negative Crossmatch See Detail 01/07/20 01/06/20 01/06/20 04:50 20:52 16:37 WBC 6.0 RBC 3.10 L Hgb 7.4 L Hct 24.8 L MCV 80.0 MCH 23.9 L MCHC 29.8 L RDW 18.0 H Plt Count 84 L MPV 11.0 H Neut % (Auto) 59.7 Lymph % (Auto) 20.4 [place] % (Auto) 13.4 Eos % (Auto) 5.2 Baso % (Auto) 1.0 Neut # (Auto) 3.58 Lymph # (Auto) 1.2 [place] # (Auto) 0.8 Eos # (Auto) 0.3 Baso # (Auto) 0.1 Nucleated RBC % (a uto) 0 Nucleated RBCs # 0.0 POC Glucose 348 411 Nasal/Oral COVID-1 9 PCR Blood Type Rho(D) Type Antibody Screen Crossmatch 01/05/20 18:02 WBC RBC Hgb Hct MCV MCH MCHC RDW Plt Count MPV Neut % (Auto) Lymph % (Auto) [place] % (Auto) Eos % (Auto) Baso % (Auto) Neut # (Auto) Lymph # (Auto) [place] # (Auto) Eos # (Auto) Baso # (Auto) Nucleated RBC % (a uto) Nucleated RBCs # POC Glucose Nasal/Oral COVID-1 9 PCR Negative Blood Type Rho(D) Type Antibody Screen Crossmatch Vitals: Last Vital Signs Temp 99.1 F 01/07/20 11:00 Pulse 90 01/07/20 11:00 Resp 18 01/07/20 11:20 BP 119/72 01/07/20 11:00 Pulse Ox 94 01/07/20 11:00 Discharge Plan Discharge Patient Disposition: Xfer SNF Condition: Stable Prescriptions: New celecoxib 200 mg Capsule 200 mg PO Q12H Qty: 60 RF: 0 acetaminophen 500 mg Tablet 1,000 mg PO Q8H 15 Days Qty: 90 RF: 0 oxycodone 5 mg Tablet 10 mg PO Q4H PRN (Reason: Severe Pain) 45 Days RF: 0 Continued multivitamin [Multiple Vitamins] Tablet 1 tab PO DAILY RF: 0 ropinirole 1 mg Tablet 1 mg PO BID RF: 0 amlodipine 10 mg Tablet 10 mg PO DAILY RF: 0 Lantus Solostar U-100 Insulin 100 unit/mL (3 mL) Insulin Pen 45 unit SUBCUT BID RF: 0 furosemide 40 mg Tablet 40 mg PO BID RF: 0 carvedilol 6.25 mg Tablet 6.25 mg PO BID RF: 0 amiodarone 200 mg Tablet 200 mg PO DAILY RF: 0 spironolactone 25 mg Tablet 25 mg PO DAILY RF: 0 hydroxyzine HCl 25 mg Tablet 25 mg PO TID PRN (Reason: Anxiety) RF: 0 aripiprazole 5 mg Tablet 5 mg PO DAILY RF: 0 Eliquis 5 mg Tablet 5 mg PO BID RF: 0 potassium chloride 20 mEq Tablet Extended Release 20 meq PO BID RF: 0 Held lisinopril 5 mg tablet 5 mg PO DAILY RF: 0 Hold Instructions: Resume on 01/14/20. Discharge Orders: Discharge Order (Routine); Ordered 01/05/20 Ordered By: Amber Blunt Other Ambulatory Orders: DME: Walker (Order) Location: None Selected Ordered By: Amber Blunt Referrals: NH, PCP [Other] - 4-7 days [facility] [Outside] Amber Blunt MD [Physician] - 01/18/20 1:15 pm Discharge Diet: Advance as tolerated, Usual diet, Cardiac and Diabetic Discharge Activity: Increase activity as tolerated, Limit activity as instructed, Use walker/crutches as instructed and As per PT/OT instructions Activity Restrictions/Additional Instructions: Please recheck hemoglobin in 2-3 days due to acute anemia. May need transfusion if hemoglobin decreasing to 7 or below. Continue to monitor blood glucose before meals and at bedtime. Resume usual insulin regimen. Continue follow-up with dermatology with regards to psoriasis and psoriatic arthritis and monthly treatments. Please note lisinopril is on hold for now while blood pressure is soft and perioperatively, but if blood pressure is rising, please resume. As discussed, please continue follow-up with your primary care provider with regards to chronic liver parameter elevation, fatty liver infiltration, and concern that there may be progression towards cirrhosis. Continue follow-up with cardiology as you have been previously planning. Once you recover from surgery, discuss with your pressure washer and primary care provider about benefits and risks of starting a cholesterol medication. Continue follow-up with orthopedics regarding decreased range of mobility in the left shoulder. Physical therapy for weightbearing ambulation as tolerated, knee range of motion, and gait training. Discharge Attestations Time Spent in Discharge Care*: greater than 30 min Quality Metrics Clinical Quality Measures During this hospital stay, did patient experience: None Coding Level of Care Code Acute Llama Farmer for Shreya Espinoza Diagnoses S/P total knee arthroplasty Z96.652 Laterality: left
[2020-01-07 16:50] LABS: Glucose Point of Care 266 mg/dL (70-110)
== END 2020-01-07 17:38 | disposition skilled nursing facility (03) ==
LOC: MEDSURG 12:14
PROVIDERS: Internal Medicine; Admitting Provider Specialist; PCP Electrodiagnostic Medicine; Visit Provider Specialist
PROC: (CPT 27447; principal; 2020-01-05 09:45)
DX: M17.12 Unilateral primary osteoarthritis, left knee (principal); M65.862 Other synovitis and tenosynovitis, left lower leg; E11.9 Type 2 diabetes mellitus without complications; I48.91 Unspecified atrial fibrillation; E78.5 Hyperlipidemia, unspecified; Z79.01 Long term (current) use of anticoagulants; Z79.4 Long term (current) use of insulin; I11.0 Hypertensive heart disease with heart failure; I50.32 Chronic diastolic (congestive) heart failure; L40.9 Psoriasis, unspecified; M25.512 Pain in left shoulder; G89.29 Other chronic pain
CPT/HCPCS: 27447; 12345; 36415; 36416; 36430; 51702; 73560; 80048; 80053; 81001; 82962; 85025; 86850; 86900; 86920; 87635; 88305; 96361; 96365; 96366; 96372; 96374; 97110; 97116; 97161; 97166; 97530; 97535; C1776; C9290; G0378; J0131; J0690; J1100; J1815 ×2; J2270; J2405; J2704; J2795; J3010; J3370; J3490; J7030; J7050; P9016

== ENCOUNTER 2020-01-14 22:13 | Emergency (ER) | payer BC, SELFPAY ==
[2020-01-14 22:21] VITALS: BP 101/60; PULSE 98; RESP 22; TEMP 37.2; O2SAT 88; BMI 38.5
--- NOTE | 2020-01-14 22:28 | ED_ITS ---
HPI - Extremity Problem General: Chief complaint: Extremity Problem,Nontraumatic Stated complaint: LFT KNEE PAIN Time Seen by Provider: 01/14/20 22:27 Source: patient Mode of arrival: ambulatory Limitations: no limitations History of Present Illness: HPI Narrative: Patient is in rehab at [facility] for knee replacement of the left lower extremity. Patient started running fever today. Patient was referred to the emergency department for further evaluation and treatment. Patient reports pain and discomfort to the left extremity. Patient reports swelling and tenderness to the extremity. Associated symptoms: Reports fever(s) Review of Systems General: Reports: 10 or more systems reviewed and unremarkable except in HPI and below Const: Reports: fever(s) Musc: Reports: other (Left lower extremity redness and swelling.) PFSH ED PFSH: Medical History (Updated 01/15/20 @ 00:36 by MAAME Talavera) Angioedema Atrial fibrillation Congestive heart failure Diabetes Hyperlipidemia Hypertension Psoriasis Restless leg syndrome Surgical History (Updated 01/07/20 @ 13:47 by Amber Blunt MD) H/O knee surgery Hx of cardiac cath Family History Father Cancer Lung Mother Cancer Brain Other Diabetes Hypertension Social History Smoking and tobacco status: never smoked Alcohol intake: current Alcohol intake frequency: holidays/special occasions only Household members: friend(s) Housing: Apartment Physical Exam Const: COMMON NORMALS: no acute distress and patient oriented x3 GENERAL APPEARANCE: cooperative HENMT: COMMON NORMALS: normocephalic and Normal external nose present HEAD & SCALP: normal to inspection and normocephalic NOSE: Normal external nose present MOUTH: Normal oral and palatal mucosa present THROAT: posterior oropharynx normal Eye: GENERAL EYE: appearance normal, both eyes and all related structures Neck/C-Spine: COMMON NORMALS: full ROM Lymph: LYMPHATIC: no lymphadenopathy noted Chest: COMMONS NORMALS: normal inspection of the chest Resp: COMMON NORMALS: normal respiratory effort EFFORT & INSPECTION: Yes able to speak in complete sentences Cardio: COMMON NORMALS: regular rate and regular rhythm RATE: regular rate RHYTHM: regular rhythm GI: COMMON NORMALS: non-tender Back/Pelvis: COMMON NORMALS: thoracic and lumbar spine normal to inspection Extremity: NARRATIVE EXTREMITY EXAM: Ecchymosis and swelling to the left lower extremity. Distal pulses intact. Incision of the knee is intact. Neuro: COMMON NORMALS: patient oriented x3 and moves all extremities Psych: COMMON NORMALS: mental status grossly normal and cooperative Skin: COMMON NORMALS: no rashes or lesions noted GENERAL SKIN EXAM: no rashes or lesions noted Course ED course: 1215, discussed patient with Dr. Zheng she recommended Cleocin and follow-up on Saturday. wjw Vital Signs: Vital signs: Vital Signs Temperature 99.0 F 01/14/20 22:21 Pulse Rate 87 01/15/20 01:15 Respiratory Rate 16 01/15/20 01:15 Blood Pressure 104/65 01/15/20 01:15 Pulse Oximetry 91 01/15/20 01:15 MDM - Extremity (Nontraumatic) MDM Narrative: Medical decision making narrative: Patient comes in today for fever reported 102.6 at [facility]. Patient reports some heat and redness to the wound site. Patient appears mildly unwell. Exam notes redness to the surgical wound and increased swelling to the extremity. Pulses are intact distally. Lungs are clear to auscultation. Vital signs are normal. Patient does have some mild hypoxia at times on room air, especially when sleeping. Differential diagnosis includes but not limited to pneumonia, cellulitis, DVT, UTI, osteomyelitis. X-ray of the knee noted no osteomyelitis there was some air in the soft tissue of the knee along surgical incision line. Chest x-ray was normal. CBC showed a white count of 5000, hemoglobin and hematocrit is 8 and 31. I discussed patient with his surgeon Dr. Zheng she recommended Cleocin and for patient to follow-up on Saturday. I did do a ultrasound of the extremity which showed no DVT. Reviewed with patient who stated understanding and need for follow-up appointment. Lab Data: Labs: Lab Results 01/14/20 01/14/20 01/14/20 Range/Units 22:33 22:41 22:41 WBC 5.7 (4.0-10.0) 10^3/ uL RBC 3.38 L (4.1-5.3) 10^6/u L Hgb 8.4 L (11.7-16.6) g/dL Hct 31.6 L (42.0-52.0) % MCV 93.5 (80-94) fL MCH 24.9 L (28.0-34.0) pg MCHC 26.6 L (30.0-36.0) g/dL RDW 19.5 H (12.1-15.1) % Plt Count 214 (130-400) 10^3/c mm MPV 13.1 H (7.4-10.4) fL Neut % (Auto) 71.1 % Lymph % (Auto) 15.0 % [place] % (Auto) 9.6 % Eos % (Auto) 2.6 % Baso % (Auto) 1.2 % Neut # (Auto) 4.06 (1.8-7.7) 10^3/u L Lymph # (Auto) 0.9 (0.8-4.8) 10^3/u L [place] # (Auto) 0.6 (0.2-0.9) 10^3/u L Eos # (Auto) 0.2 (0.0-0.8) 10^3/u L Baso # (Auto) 0.1 (0.0-0.1) 10^3/u L Nucleated RBC % (a uto) 0.3 % Nucleated RBCs # 0.0 /100WBC Sodium 132 L (136-145) mmol/L Potassium 4.6 (3.5-5.1) mmol/L Chloride 93 L (98-107) mmol/L Carbon Dioxide 30 H (22-29) mmol/L Anion Gap 13.6 (5-19) BUN 15 (6-20) mg/dL Creatinine 0.9 (0.7-1.2) mg/dL GFR Calculation 88.3 L (90-130) mL/min Glucose 240 H (65-115) mg/dL Calculated Osmolal ity 283 L (285-295) mOsm/k g Lactic Acid 1.5 (0.5-2.2) mmol/L Calcium 8.1 L (8.5-10.5) mg/dL Total Bilirubin 1.4 H (0.15-1.2) mg/dL AST 52 H (0-40) U/L ALT 25 (0-41) U/L Alkaline Phosphata se 254 H (40-130) IU/L Total Protein 7.2 (6.6-8.7) g/dL Albumin 3.6 (3.5-5.2) g/dL Globulin 3.6 (1.3-4.6) g/dL SARS-CoV-2 Ag (Rap id) (Negative) 01/15/20 Range/Units 00:42 WBC (4.0-10.0) 10^3/ uL RBC (4.1-5.3) 10^6/u L Hgb (11.7-16.6) g/dL Hct (42.0-52.0) % MCV (80-94) fL MCH (28.0-34.0) pg MCHC (30.0-36.0) g/dL RDW (12.1-15.1) % Plt Count (130-400) 10^3/c mm MPV (7.4-10.4) fL Neut % (Auto) % Lymph % (Auto) % [place] % (Auto) % Eos % (Auto) % Baso % (Auto) % Neut # (Auto) (1.8-7.7) 10^3/u L Lymph # (Auto) (0.8-4.8) 10^3/u L [place] # (Auto) (0.2-0.9) 10^3/u L Eos # (Auto) (0.0-0.8) 10^3/u L Baso # (Auto) (0.0-0.1) 10^3/u L Nucleated RBC % (a uto) % Nucleated RBCs # /100WBC Sodium (136-145) mmol/L Potassium (3.5-5.1) mmol/L Chloride (98-107) mmol/L Carbon Dioxide (22-29) mmol/L Anion Gap (5-19) BUN (6-20) mg/dL Creatinine (0.7-1.2) mg/dL GFR Calculation (90-130) mL/min Glucose (65-115) mg/dL Calculated Osmolal ity (285-295) mOsm/k g Lactic Acid (0.5-2.2) mmol/L Calcium (8.5-10.5) mg/dL Total Bilirubin (0.15-1.2) mg/dL AST (0-40) U/L ALT (0-41) U/L Alkaline Phosphata se (40-130) IU/L Total Protein (6.6-8.7) g/dL Albumin (3.5-5.2) g/dL Globulin (1.3-4.6) g/dL SARS-CoV-2 Ag (Rap id) Negative (Negative) Discharge Plan Discharge Patient Disposition: [facility] Clinical Impression: Cellulitis of left leg Condition: Stable Prescriptions: New clindamycin HCl 300 mg capsule 300 mg PO QID 10 Days Qty: 40 RF: 0 No Action (DME) CONTINUOUS PASSIVE MOTION MACHINE See Rx Instructions .Route .MEDSUPPLY Qty: 1 RF: 0 multivitamin [Multiple Vitamins] Tablet 1 tab PO DAILY RF: 0 ropinirole 1 mg Tablet 1 mg PO BID RF: 0 amlodipine 10 mg Tablet 10 mg PO DAILY RF: 0 Lantus Solostar U-100 Insulin 100 unit/mL (3 mL) Insulin Pen 45 unit SUBCUT BID RF: 0 furosemide 40 mg Tablet 40 mg PO BID RF: 0 carvedilol 6.25 mg Tablet 6.25 mg PO BID RF: 0 amiodarone 200 mg Tablet 200 mg PO DAILY RF: 0 spironolactone 25 mg Tablet 25 mg PO DAILY RF: 0 hydroxyzine HCl 25 mg Tablet 25 mg PO TID PRN (Reason: Anxiety) RF: 0 aripiprazole 5 mg Tablet 5 mg PO DAILY RF: 0 Eliquis 5 mg Tablet 5 mg PO BID RF: 0 potassium chloride 20 mEq Tablet Extended Release 20 meq PO BID RF: 0 lisinopril 5 mg tablet 5 mg PO DAILY RF: 0 Hold Instructions: Resume on 01/14/20. celecoxib 200 mg Capsule 200 mg PO Q12H Qty: 60 RF: 0 acetaminophen 500 mg Tablet 1,000 mg PO Q8H 15 Days Qty: 90 RF: 0 oxycodone 5 mg Tablet 10 mg PO Q4H PRN (Reason: Severe Pain) 45 Days RF: 0 Discharge Orders: Discharge Order (Routine); Ordered 01/15/20 Ordered By: Nikolai Sofia Referrals: Contreras Faustin DO [Primary Care Provider] - Discharge Diet: Usual diet Discharge Activity: Increase activity as tolerated Patient Instructions: Cellulitis (ED) Activity Restrictions/Additional Instructions: Continue routine care as directed. Encourage plenty of fluids. Add antibiotic to regimen. Patient should take clindamycin 4 times a day for the next 10 days. Patient needs to follow back up with Dr. Zheng on Saturday. Return to the emergency department for worsening symptoms. Coding Level of Care Code ED Fruit And Vegetable Inspector for Srheya Espinoza Exam Comprehensive
--- NOTE | 2020-01-14 22:29 | XRR_ITS ---
PROCEDURE INFORMATION: Exam: XR Left Knee Exam date and time: 01/14/2020 10:47 PM Age: 54 years old Clinical indication: Other: Post knee replacement; Swelling and redness; Prior surgery; Surgery date: <1 month; Surgery type: Total knee replacement; Additional info: Redness swelling, post knee replacement TECHNIQUE: Imaging protocol: XR Left knee. Views: 3 views. COMPARISON: CR XR knee LT 1-2V [id number] 01/05/2020 12:31 PM FINDINGS: Bones/joints: Anatomic alignment of left knee arthroplasty. Large joint effusion. Soft tissues: Prominent residual soft tissue swelling. Postoperative subcutaneous emphysema and skin madiha. XR/XR knee LT 3V* [id number] IMPRESSION: 1. Prominent residual soft tissue swelling. 2. Large joint effusion.
--- NOTE | 2020-01-14 22:33 | USCV_ITS ---
Darin Chun Age: 54 Gender: M : 1965 Exam Date: 01/14/2020 23:34 Ordering Phys: Nikolai Sofia Technologist: Darci Lou Exam Location: [facility] [place] Indication: SWELLING HISTORY: Lower extremity swelling. PROCEDURES: Venous duplex imaging was performed in only the left lower extremity. The following venous structures were evaluated: common femoral vein, profunda vein, proximal portion of the greater saphenous vein, superficial femoral vein, and the popliteal vein. In addition, the posterior tibial veins were evaluated. In addition, the posterior tibial and peroneal trunk were evaluated. Serial compression, augmentation maneuvers, and spectral Doppler flow evaluation were performed. FINDINGS: Normal 2-D Doppler and augmentation and compressibility throughout the lower extremity venous structures. Additional imaging through the proximal calf veins also reveals no thrombus. Limited evaluation of the greater saphenous vein is patent with no thrombus. CONCLUSIONS No DVT left lower extremity. Dr. Glo Irby DO (Electronically Signed) Final Date: 15 January 2020 10:05 S
--- NOTE | 2020-01-14 22:44 | XRR_ITS ---
PROCEDURE INFORMATION: Exam: XR Chest, 1 View Exam date and time: 01/14/2020 10:59 PM Age: 54 years old Clinical indication: Other: Hypoxia- left knee [id number]; Patient HX: C/O hypoxia-fever; Redness swelling left knee. Total knee replacement 1 week ago TECHNIQUE: Imaging protocol: XR of the chest Views: 1 view. COMPARISON: No relevant prior studies available. FINDINGS: Lungs: Mild interstitial prominence without acute airspace disease. Pleural space: No pleural effusion. Heart/Mediastinum: No cardiomegaly. Bones/joints: Unremarkable. XR/XR chest 1V portable [id number] IMPRESSION: Mild interstitial prominence without acute airspace disease.
[2020-01-14 22:55] LABS: Basophils # 0.1 10^3/uL (0.0-0.1); Basophils % 1.2 %; Eosinophils # 0.2 10^3/uL (0.0-0.8); Eosinophils % 2.6 %; Hematocrit 31.6 % (42.0-52.0); Hemoglobin 8.4 g/dL (11.7-16.6); Lymphocytes # 0.9 10^3/uL (0.8-4.8); Mean Corpuscular HGB Conc 26.6 g/dL (30.0-36.0); Mean Corpuscular Hemoglobin 24.9 pg (28.0-34.0); Mean Corpuscular Volume 93.5 fL (80-94); Mean Platelet Volume 13.1 fL (7.4-10.4); Monocytes # 0.6 10^3/uL (0.2-0.9); Monocytes % 9.6 %; Neutrophils # 4.06 10^3/uL (1.8-7.7); Neutrophils % 71.1 %; Nucleated Red Blood Cells % 0.3 %; Platelet Count 214 10^3/cmm (130-400); Red Blood Count 3.38 10^6/uL (4.1-5.3); Red Cell Distribution Width 19.5 % (12.1-15.1); White Blood Count 5.7 10^3/uL (4.0-10.0)
[2020-01-14 23:00] LABS: Lactic Sepsis W/Reflex 1.5 mmol/L (0.5-2.2)
[2020-01-14 23:14] LABS: Slide Review Slide Review Perform
[2020-01-14 23:23] LABS: Alanine Aminotransferase 25 U/L (0-41); Albumin Level 3.6 g/dL (3.5-5.2); Alkaline Phosphatase 254 IU/L (40-130); Aspartate Amino Transferase 52 U/L (0-40); Blood Urea Nitrogen 15 mg/dL (6-20); Calcium 8.1 mg/dL (8.5-10.5); Carbon Dioxide 30 mmol/L (22-29); Chloride 93 mmol/L (98-107); Globulin 3.6 g/dL (1.3-4.6); Glomerular Filtration Rate 88.3 mL/min (90-130); Glucose 240 mg/dL (65-115); Osmolality Calculated 283 mOsm/kg (285-295); Sodium 132 mmol/L (136-145); Total Bilirubin 1.4 mg/dL (0.15-1.2); Total Protein 7.2 g/dL (6.6-8.7)
[2020-01-14 23:38] LABS: Anion Gap 13.6 (5-19); Potassium 4.6 mmol/L (3.5-5.1)
[2020-01-15] MEDS: clindamycin 900 MG/50 ML PREMIX 100 MG IV (00:49)
[2020-01-15 01:15] VITALS: BP 104/65; PULSE 87; RESP 16; O2SAT 91
[2020-01-15 01:16] LABS: SARS Covid-2 Antigen Negative (Negative)
--- NOTE | 2020-01-15 01:54 | PC.NURSE ---
This RN spoke with [facility], they transport patient in the AM back to facility, confirmed by Gene at the facility
[2020-01-15 03:52] VITALS: BP 123/87; PULSE 87; RESP 18; O2SAT 96
--- NOTE | 2020-01-15 11:26 | DCPLANNER ---
education site manager had message to schedule a followup appointment for patient with ortho. education site manager called the ortho clinic, spoke with Pat, patient has a follow up appointment scheduled for Saturday, January 18, 2020 at 1:15. Clinic will let patient know of scheduled appointment.
== END 2020-01-15 06:51 | disposition skilled nursing facility (03) ==
PROVIDERS: Emergency Provider Nurse Practitioner Family; PCP Electrodiagnostic Medicine
DX: L03.116 Cellulitis of left lower limb (principal); Z79.4 Long term (current) use of insulin; Z79.01 Long term (current) use of anticoagulants; I48.91 Unspecified atrial fibrillation; I11.0 Hypertensive heart disease with heart failure; I50.9 Heart failure, unspecified; E11.9 Type 2 diabetes mellitus without complications; E78.5 Hyperlipidemia, unspecified
CPT/HCPCS: 12345; 71045; 73562; 80053; 83605; 85025; 87040; 87426; 93971; 96365; 99282; 99283; J3490

== ENCOUNTER → 2020-01-18 13:21 | Outpatient (BNVA) | payer BC, SELFPAY | PROVIDERS: PCP Electrodiagnostic Medicine; Visit Provider Specialist | DX: Z96.652 Presence of left artificial knee joint (principal) | CPT/HCPCS: 73560; 73565 ==

== ENCOUNTER 2020-03-04 04:53 | Inpatient (IN) | payer MEDICAID, SELFPAY ==
[2020-03-04] VITALS (17 sets, daily range): BP systolic 134–168; BP diastolic 85–104; PULSE 89–112; RESP 15–22; TEMP 36.4–37.1; O2SAT 95–99; BMI 34.9
--- NOTE | 2020-03-04 04:59 | XR_ITS ---
WS: [id number] XR chest 1V portable [id number] REASON FOR EXAM: Chest pain FINDINGS: The chest is unchanged compared to 01/14/2020. Mild tortuosity of the thoracic aorta. Heart not enlarg ed. No active pulmonary parenchymal pleural disease. Mild degenerative spondylosis in the mid and lower thoracic spine with mild S-shaped scoliosis. XR/XR chest 1V portable [id number] IMPRESSION: No acute chest abnormality.
--- NOTE | 2020-03-04 05:00 | ECG_ITS ---
[facility] Test Date: 2020-03-04 Pat Name: Chun Webster Department: Room: Gender: Male Subassembler: : 1965 Requested By: Faby Gordon Order Number: [id number] [place] MD: REA YEBOAH Measurements Intervals [place] Rate: 95 P: 33 CT: 178 QRS: -43 QRSD: 130 T: 80 QT: 398 QTc: 503 Interpretive Statements SINUS RHYTHM WITH OCCASIONAL VENTRICULAR PREMATURE COMPLEXES LEFT AXIS DEVIATION [QRS AXIS < -30] POSSIBLE LEFT VENTRICULAR HYPERTROPHY [VOLTAGE CRITERIA PLUS LAE OR QRS WIDENING] NONSPECIFIC T-WAVE ABNORMALITY Compared to ECG 12/18/2019 22:28:51 Ventricular premature complex(es) now present T-wave abnormality still present Electronically Signed On 03-04-2020 19:28:57 ONCOLOGY PHYSICIAN ASSISTANT by REA YEBOAH [email or web address]
--- NOTE | 2020-03-04 05:02 | ED_ITS ---
Documented by User: Faby Campos 03/04/20 05:49 HPI - Chest Pain General: Chief Complaint: Chest Pain Stated Complaint: chest pain Time Seen by Provider: 03/04/20 04:56 Source: patient and EMS Mode of arrival: EMS Limitations: no limitations History of Present Illness: HPI narrative: Mr. Webster is a nice 54-year-old male who comes in complaining of chest pain that awoke him from sleep. He states that he woke with chest pain described as a sharp pain that did not radiate. He also describes it as a tightness. He states that he noticed that he was sweating profusely upon awakening. He had associated shortness of breath along with nauseousness and he threw up twice. Patient states that the symptoms lasted for about 10 minutes after awakening and slowly dissipated until the resolution. Patient's not had any discomfort or symptoms since. Patient did call EMS who have stated they did not do anything in route as the patient's been asymptomatic since their picking him up. Patient states that he has a history of atrial fibrillation, congestive heart failure and heart attack but he is never received a stent only had a diagnostic heart cath. He states this was performed at [facility] in the past. Patient is currently on Eliquis for his atrial fibrillation. This time the patient states he is pain-free. Patient denies any similar symptoms to this recently. Associated symptoms: Reports diaphoresis, dyspnea, nausea and vomiting; Deny abdominal pain, fever(s), palpitations or syncope Review of Systems Const: Reports: night sweats and diaphoresis; Denies: fever(s), chills, body aches, fatigue or malaise Eyes: Denies: change in vision, blurry vision, photophobia, eye discomfort, eye discharge, eye redness or yellow eyes ENMT: Denies: throat pain, odynophagia, hoarseness, swelling of lips/tongue, ear or mastoid pain, ear discharge, change in hearing or nasal discharge Card: Reports: chest pain; Denies: palpitations, irregular heart rhythm, edema, lightheadedness, syncope, pre-syncope, dyspnea on exertion or orthopnea Resp: Reports: dyspnea; Denies: productive cough, non-productive cough, wheezing, hemoptysis or chest congestion GI: Reports: nausea and vomiting; Denies: abdominal pain, hematemesis, coffee ground emesis, heartburn, diarrhea, constipation, GI cramping, hematochezia or melena : Denies: flank pain, dysuria, urinary frequency, urinary urgency or hematuria Musc: Denies: neck pain, back pain, extremity pain, extremity swelling, joint pain, joint swelling, joint redness, joint warmth or joint stiffness Skin/Breast: Denies: rash, pruritus, erythema, skin pain or skin tenderness Neuro: Denies: headache(s), numbness in extremities, weakness in extremities, sensory changes, lack of coordination, difficulty walking, dizziness, vertigo, confusion, Slurred speech present or seizure-like activity Max/Lymph: Denies: easy bruising, easy bleeding, petechiae, purpura or enlarged lymph nodes All/Imm: Denies: urticaria, throat swelling, tongue swelling, facial swelling or acute wheezing PFSH ED PFSH: Medical History Angioedema Atrial fibrillation Congestive heart failure Diabetes Hyperlipidemia Hypertension Psoriasis Restless leg syndrome Surgical History H/O knee surgery Hx of cardiac cath Family History Father Cancer Lung Mother Cancer Brain Other Diabetes Hypertension Social History Smoking and tobacco status: never smoked Alcohol intake: current Alcohol intake frequency: holidays/special occasions only Household members: friend(s) Housing: Apartment Physical Exam Const: COMMON NORMALS: no acute distress, patient oriented x3, no limitations and alert GENERAL APPEARANCE: cooperative HENMT: COMMON NORMALS: normocephalic, atraumatic, external ears normal, EAC's normal and Normal external nose present HEAD & SCALP: normal to inspection, normocephalic and atraumatic FACE & SINUS: normal facial exam and face symmetric NOSE: Normal external nose present and Normal nares present EXTERNAL EAR: Yes external ears normal EXTERNAL AUDITORY CANAL: EAC's normal MOUTH: Normal oral and palatal mucosa present, lip normal and tongue normal Eye: COMMON NORMALS: Equal, round and reactive pupils present and conjunctivae normal GENERAL EYE: appearance normal, both eyes and all related structures ALIGNMENT: Yes alignment normal PERIORBITAL: periorbital findings normal EYELID: eyelids normal CONJUNCTIVA: Yes conjunctivae normal SCLERA: sclerae normal PUPIL: Yes Equal, round and reactive pupils present Neck/C-Spine: COMMON NORMALS: full ROM, no lymphadenopathy, supple, no meningeal signs and no JVD GENERAL: Yes normal visual inspection and Yes trachea midline Chest: COMMONS NORMALS: normal inspection of the chest and normal palpation of entire chest wall Resp: COMMON NORMALS: normal respiratory effort, No retractions, No use of accessory muscles and clear to auscultation bilaterally EFFORT & INSPECTION: Yes able to speak in complete sentences and Yes symmetric chest movement AUSCULTATION: clear to auscultation bilaterally, no crackles, no rales, no rhonchi and no wheezes Cardio: COMMON NORMALS: no JVD, regular rate, regular rhythm, S1 normal heart sound present and S2 normal heart sound present RATE: regular rate RHYTHM: regular rhythm HEART SOUNDS: S1 normal heart sound present, S2 normal heart sound present, no click, no gallops, no murmurs and no rubs GI: COMMON NORMALS: Soft to palpation and No hepatosplenomegaly present PALPATION: Yes Soft to palpation, No Tenderness to palpation present (GI), No Guarding due to palpation present (GI), No Rigid due to palpation, Yes No hepatosplenomegaly present, No Hernia present, No Palpable mass present and No Pulsatile mass present : COMMON NORMALS: Yes no CVA tenderness BLADDER/KIDNEY EXAM: Yes no CVA tenderness Back/Pelvis: COMMON NORMALS: no CVA tenderness, thoracic and lumbar spine normal to inspection, no thoracic nor lumbar tenderness and thoraco-lumbar ROM normal Extremity: COMMON NORMALS: normal to inspection, full ROM, capillary refill normal, no joint enlargement, no clubbing, cyanosis or edema and no calf tenderness Neuro: COMMON NORMALS: patient oriented x3, CN's II-XII intact bilaterally, moves all extremities, no focal motor deficits and no sensory deficits noted SENSORIUM/ORIENTATION: Yes alert MENINGEAL SIGNS: Yes no meningeal signs SPEECH: speech normal Psych: COMMON NORMALS: mental status grossly normal, Normal thought process present, cooperative, normal affect, speech normal and activity/motor behavior normal SPEECH: Yes normal speech THOUGHT PROCESS: Normal thought process present Skin: COMMON NORMALS: no rashes or lesions noted, turgor normal, no jaundice, no petechiae and no mottling GENERAL SKIN EXAM: no rashes or lesions noted and turgor normal Course Vital Signs: Vital signs: Vital Signs Temperature 97.8 F 03/05/20 06:00 Pulse Rate 78 03/05/20 06:00 Respiratory Rate 16 03/05/20 06:00 Blood Pressure 129/68 03/05/20 06:00 Pulse Oximetry 93 03/05/20 06:00 MDM - Chest Pain MDM Narrative: Medical decision making narrative: 0548 -patient rejected his answers of suicidal ideation and does admit now that he is suicidal. He states he wants to get help. He does admit that his symptoms of chest pain and shortness of breath this morning were real. I will place the patient under 96- hour hold. Lab Data: Labs: Lab Results 03/04/20 03/04/20 03/04/20 Range/Units 05:00 05:00 05:00 WBC 5.4 (4.0-10.0) 10^3/ uL RBC 4.90 (4.1-5.3) 10^6/u L Hgb 12.4 (11.7-16.6) g/dL Hct 41.0 L (42.0-52.0) % MCV 83.7 (80-94) fL MCH 25.3 L (28.0-34.0) pg MCHC 30.2 (30.0-36.0) g/dL RDW 19.2 H (12.1-15.1) % Plt Count 139 (130-400) 10^3/c mm MPV 12.3 H (7.4-10.4) fL Neut % (Auto) 69.8 % Lymph % (Auto) 18.6 % [place] % (Auto) 7.7 % Eos % (Auto) 2.4 % Baso % (Auto) 1.1 % Neut # (Auto) 3.78 (1.8-7.7) 10^3/u L Lymph # (Auto) 1.0 (0.8-4.8) 10^3/u L [place] # (Auto) 0.4 (0.2-0.9) 10^3/u L Eos # (Auto) 0.1 (0.0-0.8) 10^3/u L Baso # (Auto) 0.1 (0.0-0.1) 10^3/u L Nucleated RBC % (a uto) 0 % Nucleated RBCs # 0.0 /100WBC PT 17.50 H (12.1-14.9) SECO NDS INR 1.39 H (0.8-1.2) D-Dimer 3.73 H (0-0.59) ug/mIFE U Sodium 140 (136-145) mmol/L Potassium 4.2 (3.5-5.1) mmol/L Chloride 105 (98-107) mmol/L Carbon Dioxide 25 (22-29) mmol/L Anion Gap 14.2 (5-19) BUN 14 (6-20) mg/dL Creatinine 0.9 (0.7-1.2) mg/dL GFR Calculation 88.3 L (90-130) mL/min Glucose 264 H (65-115) mg/dL Calculated Osmolal ity 300 H (285-295) mOsm/k g Calcium 8.7 (8.5-10.5) mg/dL Magnesium 1.8 (1.7-2.3) mg/dL Total Bilirubin 0.6 (0.15-1.2) mg/dL AST 35 (0-40) U/L ALT 24 (0-41) U/L Alkaline Phosphata se 195 H (40-130) IU/L Troponin T Baselin e (0-15) ng/L Troponin T [address] [place] (0-15) ng/L Delta Troponin T (0-10) ABS# Total Protein 8.2 (6.6-8.7) g/dL Albumin 3.9 (3.5-5.2) g/dL Globulin 4.3 (1.3-4.6) g/dL Lipase 26 (13-60) U/L Urine Color (Yellow) Urine Appearance (CLEAR) Urine pH (5-7) Ur Specific Gravit y (1.005-1.030) Urine Protein (Negative) Urine Glucose (UA) (Normal) Urine Ketones (Negative) Urine Blood (Negative) Urine Nitrate (Negative) Urine Bilirubin (Negative) Urine Urobilinogen (Negative) mg/dL Ur Leukocyte Jaye ase (Negative) Urine RBC (0-2) /hpf Urine WBC (0-5) /hpf Ur Squamous Epith Cells (0-5) /hpf Amorphous Sediment Urine Bacteria (NONE) /hpf Urine Mucus /hpf Salicylates (3-10) mg/dL Urine Opiates Scre en (Negative) ng/mL Acetaminophen (10-30) ug/mL Ur Barbiturates Sc reen (Negative) ng/mL Ur Phencyclidine S crn (Negative) ng/mL Ur Amphetamines Sc reen (Negative) ng/mL U Benzodiazepines Scrn (Negative) ng/mL Urine Cocaine Scre en (Negative) ng/mL U Marijuana (THC) Screen (Negative) ng/mL Ethyl Alcohol (0-10) mg/dL 03/04/20 03/04/20 03/04/20 Range/Units 05:00 05:00 06:17 WBC (4.0-10.0) 10^3/ uL RBC (4.1-5.3) 10^6/u L Hgb (11.7-16.6) g/dL Hct (42.0-52.0) % MCV (80-94) fL MCH (28.0-34.0) pg MCHC (30.0-36.0) g/dL RDW (12.1-15.1) % Plt Count (130-400) 10^3/c mm MPV (7.4-10.4) fL Neut % (Auto) % Lymph % (Auto) % [place] % (Auto) % Eos % (Auto) % Baso % (Auto) % Neut # (Auto) (1.8-7.7) 10^3/u L Lymph # (Auto) (0.8-4.8) 10^3/u L [place] # (Auto) (0.2-0.9) 10^3/u L Eos # (Auto) (0.0-0.8) 10^3/u L Baso # (Auto) (0.0-0.1) 10^3/u L Nucleated RBC % (a uto) % Nucleated RBCs # /100WBC PT (12.1-14.9) SECO NDS INR (0.8-1.2) D-Dimer (0-0.59) ug/mIFE U Sodium (136-145) mmol/L Potassium (3.5-5.1) mmol/L Chloride (98-107) mmol/L Carbon Dioxide (22-29) mmol/L Anion Gap (5-19) BUN (6-20) mg/dL Creatinine (0.7-1.2) mg/dL GFR Calculation (90-130) mL/min Glucose (65-115) mg/dL Calculated Osmolal ity (285-295) mOsm/k g Calcium (8.5-10.5) mg/dL Magnesium (1.7-2.3) mg/dL Total Bilirubin (0.15-1.2) mg/dL AST (0-40) U/L ALT (0-41) U/L Alkaline Phosphata se (40-130) IU/L Troponin T Baselin e 8 (0-15) ng/L Troponin T 120 Min [place] (0-15) ng/L Delta Troponin T (0-10) ABS# Total Protein (6.6-8.7) g/dL Albumin (3.5-5.2) g/dL Globulin (1.3-4.6) g/dL Lipase (13-60) U/L Urine Color Yellow (Yellow) Urine Appearance Clear (CLEAR) Urine pH 5.0 (5-7) Ur Specific Gravit y 1.025 (1.005-1.030) Urine Protein Trace (Negative) Urine Glucose (UA) 2+ (Normal) Urine Ketones Negative (Negative) Urine Blood Neg (Negative) Urine Nitrate Negative (Negative) Urine Bilirubin Neg (Negative) Urine Urobilinogen 1 H (Negative) mg/dL Ur Leukocyte Jaye ase Negative (Negative) Urine RBC None (0-2) /hpf Urine WBC 0-4 H (0-5) /hpf Ur Squamous Epith Cells 0-4 H (0-5) /hpf Amorphous Sediment Not Reportable Urine Bacteria Trace (NONE) /hpf Urine Mucus Trace /hpf Salicylates 4.5 (3-10) mg/dL Urine Opiates Scre en (Negative) ng/mL Acetaminophen < 5.0 L (10-30) ug/mL Ur Barbiturates Sc reen (Negative) ng/mL Ur Phencyclidine S crn (Negative) ng/mL Ur Amphetamines Sc reen (Negative) ng/mL U Benzodiazepines Scrn (Negative) ng/mL Urine Cocaine Scre en (Negative) ng/mL U Marijuana (THC) Screen (Negative) ng/mL Ethyl Alcohol 55 H (0-10) mg/dL 03/04/20 03/04/20 Range/Units 06:17 08:10 WBC (4.0-10.0) 10^3/ uL RBC (4.1-5.3) 10^6/u L Hgb (11.7-16.6) g/dL Hct (42.0-52.0) % MCV (80-94) fL MCH (28.0-34.0) pg MCHC (30.0-36.0) g/dL RDW (12.1-15.1) % Plt Count (130-400) 10^3/c mm MPV (7.4-10.4) fL Neut % (Auto) % Lymph % (Auto) % [place] % (Auto) % Eos % (Auto) % Baso % (Auto) % Neut # (Auto) (1.8-7.7) 10^3/u L Lymph # (Auto) (0.8-4.8) 10^3/u L [place] # (Auto) (0.2-0.9) 10^3/u L Eos # (Auto) (0.0-0.8) 10^3/u L Baso # (Auto) (0.0-0.1) 10^3/u L Nucleated RBC % (a uto) % Nucleated RBCs # /100WBC PT (12.1-14.9) SECO NDS INR (0.8-1.2) D-Dimer (0-0.59) ug/mIFE U Sodium (136-145) mmol/L Potassium (3.5-5.1) mmol/L Chloride (98-107) mmol/L Carbon Dioxide (22-29) mmol/L Anion Gap (5-19) BUN (6-20) mg/dL Creatinine (0.7-1.2) mg/dL GFR Calculation (90-130) mL/min Glucose (65-115) mg/dL Calculated Osmolal ity (285-295) mOsm/k g Calcium (8.5-10.5) mg/dL Magnesium (1.7-2.3) mg/dL Total Bilirubin (0.15-1.2) mg/dL AST (0-40) U/L ALT (0-41) U/L Alkaline Phosphata se (40-130) IU/L Troponin T Baselin e (0-15) ng/L Troponin T [address] [place] 6.00 (0-15) ng/L Delta Troponin T -2.00 L (0-10) ABS# Total Protein (6.6-8.7) g/dL Albumin (3.5-5.2) g/dL Globulin (1.3-4.6) g/dL Lipase (13-60) U/L Urine Color (Yellow) Urine Appearance (CLEAR) Urine pH (5-7) Ur Specific Gravit y (1.005-1.030) Urine Protein (Negative) Urine Glucose (UA) (Normal) Urine Ketones (Negative) Urine Blood (Negative) Urine Nitrate (Negative) Urine Bilirubin (Negative) Urine Urobilinogen (Negative) mg/dL Ur Leukocyte Jaye ase (Negative) Urine RBC (0-2) /hpf Urine WBC (0-5) /hpf Ur Squamous Epith Cells (0-5) /hpf Amorphous Sediment Urine Bacteria (NONE) /hpf Urine Mucus /hpf Salicylates (3-10) mg/dL Urine Opiates Scre en Negative (Negative) ng/mL Acetaminophen (10-30) ug/mL Ur Barbiturates Sc reen Negative (Negative) ng/mL Ur Phencyclidine S crn Negative (Negative) ng/mL Ur Amphetamines Sc reen Negative (Negative) ng/mL U Benzodiazepines Scrn Negative (Negative) ng/mL Urine Cocaine Scre en Negative (Negative) ng/mL U Marijuana (THC) Screen Negative (Negative) ng/mL Ethyl Alcohol (0-10) mg/dL EKG Data^: EKG 1: Attestation: I personally reviewed and interpreted this EKG as follows: EKG interpretation date: 03/04/20 EKG interpretation time: 05:02 Interpretation: Normal sinus rhythm at 95 beats a minute, LVH, PVC noted, tall R wave noted in V2 but no acute ST segment changes in V1 or V2. No other acute findings. Findings similar to previous. Discharge Plan Discharge Patient Disposition: Admitted As Inpatient Admit Provider: Suresh Martin Condition: Stable Referrals: [facility] [place] Family Clinic [Other] (Family Practice 8 a.m. to 5 p.m. ~ Saturday - Saturday Walk-In Clinic 7 a.m. to 7 p.m. ~ Saturday - Saturday 10 a.m. to 7 p.m. ~ Saturday - Saturday ) [facility] Behavioral Health Care [Outside] - 1-3 days (if you are interested in outpatient mental health services you can contact behavioral healthcare ) Additional Instructions: continue AA meetings Discharge Date/Time: 03/04/20 11:12 Sign Out Sign Out Data: Patient Sign Out occurred on 03/04/20 at 06:06. Patient's care was discussed, and care was transferred from to Dell Harris DO. Coding Level of Care Code ED Screw Eye Assembler for Chg Fwd Exam Comprehensive Documented by User: Dell Harris DO 03/05/20 10:12 HPI - Chest Pain General: Chief Complaint: Chest Pain Stated Complaint: chest pain Time Seen by Provider: 03/04/20 04:56 PFSH ED PFSH: Medical History Angioedema Atrial fibrillation Congestive heart failure Diabetes Hyperlipidemia Hypertension Psoriasis Restless leg syndrome Surgical History H/O knee surgery Hx of cardiac cath Family History Father Cancer Lung Mother Cancer Brain Other Diabetes Hypertension Social History Smoking and tobacco status: never smoked Alcohol intake: current Alcohol intake frequency: holidays/special occasions only Household members: friend(s) Housing: Apartment Course Vital Signs: Vital signs: Vital Signs Temperature 97.8 F 03/05/20 06:00 Pulse Rate 78 03/05/20 06:00 Respiratory Rate 16 03/05/20 06:00 Blood Pressure 129/68 03/05/20 06:00 Pulse Oximetry 93 03/05/20 06:00 MDM - Chest Pain MDM Narrative: Medical decision making narrative: Care turned over at change of shift. Patient's troponins are negative. He is no falling or having any chest pain we will set him up for outpatient stress testing he will be admitted for suicidal ideation discussed with Dr. Martin he will accept patient to the [facility]. Lab Data: Labs: Lab Results 03/04/20 03/04/20 03/04/20 Range/Units 05:00 05:00 05:00 WBC 5.4 (4.0-10.0) 10^3/ uL RBC 4.90 (4.1-5.3) 10^6/u L Hgb 12.4 (11.7-16.6) g/dL Hct 41.0 L (42.0-52.0) % MCV 83.7 (80-94) fL MCH 25.3 L (28.0-34.0) pg MCHC 30.2 (30.0-36.0) g/dL RDW 19.2 H (12.1-15.1) % Plt Count 139 (130-400) 10^3/c mm MPV 12.3 H (7.4-10.4) fL Neut % (Auto) 69.8 % Lymph % (Auto) 18.6 % [place] % (Auto) 7.7 % Eos % (Auto) 2.4 % Baso % (Auto) 1.1 % Neut # (Auto) 3.78 (1.8-7.7) 10^3/u L Lymph # (Auto) 1.0 (0.8-4.8) 10^3/u L [place] # (Auto) 0.4 (0.2-0.9) 10^3/u L Eos # (Auto) 0.1 (0.0-0.8) 10^3/u L Baso # (Auto) 0.1 (0.0-0.1) 10^3/u L Nucleated RBC % (a uto) 0 % Nucleated RBCs # 0.0 /100WBC PT 17.50 H (12.1-14.9) SECO NDS INR 1.39 H (0.8-1.2) D-Dimer 3.73 H (0-0.59) ug/mIFE U Sodium 140 (136-145) mmol/L Potassium 4.2 (3.5-5.1) mmol/L Chloride 105 (98-107) mmol/L Carbon Dioxide 25 (22-29) mmol/L Anion Gap 14.2 (5-19) BUN 14 (6-20) mg/dL Creatinine 0.9 (0.7-1.2) mg/dL GFR Calculation 88.3 L (90-130) mL/min Glucose 264 H (65-115) mg/dL Calculated Osmolal ity 300 H (285-295) mOsm/k g Calcium 8.7 (8.5-10.5) mg/dL Magnesium 1.8 (1.7-2.3) mg/dL Total Bilirubin 0.6 (0.15-1.2) mg/dL AST 35 (0-40) U/L ALT 24 (0-41) U/L Alkaline Phosphata se 195 H (40-130) IU/L Troponin T Baselin e (0-15) ng/L Troponin T [address] [place] (0-15) ng/L Delta Troponin T (0-10) ABS# Total Protein 8.2 (6.6-8.7) g/dL Albumin 3.9 (3.5-5.2) g/dL Globulin 4.3 (1.3-4.6) g/dL Lipase 26 (13-60) U/L Urine Color (Yellow) Urine Appearance (CLEAR) Urine pH (5-7) Ur Specific Gravit y (1.005-1.030) Urine Protein (Negative) Urine Glucose (UA) (Normal) Urine Ketones (Negative) Urine Blood (Negative) Urine Nitrate (Negative) Urine Bilirubin (Negative) Urine Urobilinogen (Negative) mg/dL Ur Leukocyte Jaye ase (Negative) Urine RBC (0-2) /hpf Urine WBC (0-5) /hpf Ur Squamous Epith Cells (0-5) /hpf Amorphous Sediment Urine Bacteria (NONE) /hpf Urine Mucus /hpf Salicylates (3-10) mg/dL Urine Opiates Scre en (Negative) ng/mL Acetaminophen (10-30) ug/mL Ur Barbiturates Sc reen (Negative) ng/mL Ur Phencyclidine S crn (Negative) ng/mL Ur Amphetamines Sc reen (Negative) ng/mL U Benzodiazepines Scrn (Negative) ng/mL Urine Cocaine Scre en (Negative) ng/mL U Marijuana (THC) Screen (Negative) ng/mL Ethyl Alcohol (0-10) mg/dL 03/04/20 03/04/2020 Range/Units 05:00 05:00 06:17 WBC (4.0-10.0) 10^3/ uL RBC (4.1-5.3) 10^6/u L Hgb (11.7-16.6) g/dL Hct (42.0-52.0) % MCV (80-94) fL MCH (28.0-34.0) pg MCHC (30.0-36.0) g/dL RDW (12.1-15.1) % Plt Count (130-400) 10^3/c mm MPV (7.4-10.4) fL Neut % (Auto) % Lymph % (Auto) % [place] % (Auto) % Eos % (Auto) % Baso % (Auto) % Neut # (Auto) (1.8-7.7) 10^3/u L Lymph # (Auto) (0.8-4.8) 10^3/u L [place] # (Auto) (0.2-0.9) 10^3/u L Eos # (Auto) (0.0-0.8) 10^3/u L Baso # (Auto) (0.0-0.1) 10^3/u L Nucleated RBC % (a uto) % Nucleated RBCs # /100WBC PT (12.1-14.9) SECO NDS INR (0.8-1.2) D-Dimer (0-0.59) ug/mIFE U Sodium (136-145) mmol/L Potassium (3.5-5.1) mmol/L Chloride (98-107) mmol/L Carbon Dioxide (22-29) mmol/L Anion Gap (5-19) BUN (6-20) mg/dL Creatinine (0.7-1.2) mg/dL GFR Calculation (90-130) mL/min Glucose (65-115) mg/dL Calculated Osmolal ity (285-295) mOsm/k g Calcium (8.5-10.5) mg/dL Magnesium (1.7-2.3) mg/dL Total Bilirubin (0.15-1.2) mg/dL AST (0-40) U/L ALT (0-41) U/L Alkaline Phosphata se (40-130) IU/L Troponin T Baselin e 8 (0-15) ng/L Troponin T 120 [address] [place] (0-15) ng/L Delta Troponin T (0-10) ABS# Total Protein (6.6-8.7) g/dL Albumin (3.5-5.2) g/dL Globulin (1.3-4.6) g/dL Lipase (13-60) U/L Urine Color Yellow (Yellow) Urine Appearance Clear (CLEAR) Urine pH 5.0 (5-7) Ur Specific Gravit y 1.025 (1.005-1.030) Urine Protein Trace (Negative) Urine Glucose (UA) 2+ (Normal) Urine Ketones Negative (Negative) Urine Blood Neg (Negative) Urine Nitrate Negative (Negative) Urine Bilirubin Neg (Negative) Urine Urobilinogen 1 H (Negative) mg/dL Ur Leukocyte Jaye ase Negative (Negative) Urine RBC None (0-2) /hpf Urine WBC 0-4 H (0-5) /hpf Ur Squamous Epith Cells 0-4 H (0-5) /hpf Amorphous Sediment Not Reportable Urine Bacteria Trace (NONE) /hpf Urine Mucus Trace /hpf Salicylates 4.5 (3-10) mg/dL Urine Opiates Scre en (Negative) ng/mL Acetaminophen < 5.0 L (10-30) ug/mL Ur Barbiturates Sc reen (Negative) ng/mL Ur Phencyclidine S crn (Negative) ng/mL Ur Amphetamines Sc reen (Negative) ng/mL U Benzodiazepines Scrn (Negative) ng/mL Urine Cocaine Scre en (Negative) ng/mL U Marijuana (THC) Screen (Negative) ng/mL Ethyl Alcohol 55 H (0-10) mg/dL 03/04/20 03/04/20 Range/Units 06:17 08:10 WBC (4.0-10.0) 10^3/ uL RBC (4.1-5.3) 10^6/u L Hgb (11.7-16.6) g/dL Hct (42.0-52.0) % MCV (80-94) fL MCH (28.0-34.0) pg MCHC (30.0-36.0) g/dL RDW (12.1-15.1) % Plt Count (130-400) 10^3/c mm MPV (7.4-10.4) fL Neut % (Auto) % Lymph % (Auto) % [place] % (Auto) % Eos % (Auto) % Baso % (Auto) % Neut # (Auto) (1.8-7.7) 10^3/u L Lymph # (Auto) (0.8-4.8) 10^3/u L [place] # (Auto) (0.2-0.9) 10^3/u L Eos # (Auto) (0.0-0.8) 10^3/u L Baso # (Auto) (0.0-0.1) 10^3/u L Nucleated RBC % (a uto) % Nucleated RBCs # /100WBC PT (12.1-14.9) SECO NDS INR (0.8-1.2) D-Dimer (0-0.59) ug/mIFE U Sodium (136-145) mmol/L Potassium (3.5-5.1) mmol/L Chloride (98-107) mmol/L Carbon Dioxide (22-29) mmol/L Anion Gap (5-19) BUN (6-20) mg/dL Creatinine (0.7-1.2) mg/dL GFR Calculation (90-130) mL/min Glucose (65-115) mg/dL Calculated Osmolal ity (285-295) mOsm/k g Calcium (8.5-10.5) mg/dL Magnesium (1.7-2.3) mg/dL Total Bilirubin (0.15-1.2) mg/dL AST (0-40) U/L ALT (0-41) U/L Alkaline Phosphata se (40-130) IU/L Troponin T Baselin e (0-15) ng/L Troponin T [address] [place] 6.00 (0-15) ng/L Delta Troponin T -2.00 L (0-10) ABS# Total Protein (6.6-8.7) g/dL Albumin (3.5-5.2) g/dL Globulin (1.3-4.6) g/dL Lipase (13-60) U/L Urine Color (Yellow) Urine Appearance (CLEAR) Urine pH (5-7) Ur Specific Gravit y (1.005-1.030) Urine Protein (Negative) Urine Glucose (UA) (Normal) Urine Ketones (Negative) Urine Blood (Negative) Urine Nitrate (Negative) Urine Bilirubin (Negative) Urine Urobilinogen (Negative) mg/dL Ur Leukocyte Jaye ase (Negative) Urine RBC (0-2) /hpf Urine WBC (0-5) /hpf Ur Squamous Epith Cells (0-5) /hpf Amorphous Sediment Urine Bacteria (NONE) /hpf Urine Mucus /hpf Salicylates (3-10) mg/dL Urine Opiates Scre en Negative (Negative) ng/mL Acetaminophen (10-30) ug/mL Ur Barbiturates Sc reen Negative (Negative) ng/mL Ur Phencyclidine S crn Negative (Negative) ng/mL Ur Amphetamines Sc reen Negative (Negative) ng/mL U Benzodiazepines Scrn Negative (Negative) ng/mL Urine Cocaine Scre en Negative (Negative) ng/mL U Marijuana (THC) Screen Negative (Negative) ng/mL Ethyl Alcohol (0-10) mg/dL Discharge Plan Discharge Patient Disposition: Admitted As Inpatient Admit Provider: Suresh Martin Condition: Stable Referrals: [facility] [place] Family Clinic [Other] (Family Practice 8 a.m. to 5 p.m. ~ Saturday - Saturday Walk-In Clinic 7 a.m. to 7 p.m. ~ Saturday - Saturday 10 a.m. to 7 p.m. ~ Saturday - Saturday ) [facility] [place] Behavioral Health Care [Outside] - 1-3 days (if you are interested in outpatient mental health services you can contact behavioral healthcare ) Additional Instructions: continue AA meetings Discharge Date/Time: 03/04/20 11:12 Sign Out Sign Out Data: Patient Sign Out occurred on 03/04/20 at 06:06. Patient's care was discussed, and care was transferred from to Dell Harris DO. Coding Level of Care Code ED Screw Eye Assembler for Chg Fwd Exam Comprehensive
[2020-03-04 05:11] LABS: Basophils # 0.1 10^3/uL (0.0-0.1); Basophils % 1.1 %; Eosinophils # 0.1 10^3/uL (0.0-0.8); Eosinophils % 2.4 %; Hemoglobin 12.4 g/dL (11.7-16.6); Lymphocytes % 18.6 %; Mean Corpuscular HGB Conc 30.2 g/dL (30.0-36.0); Mean Corpuscular Hemoglobin 25.3 pg (28.0-34.0); Mean Corpuscular Volume 83.7 fL (80-94); Mean Platelet Volume 12.3 fL (7.4-10.4); Monocytes # 0.4 10^3/uL (0.2-0.9); Monocytes % 7.7 %; Neutrophils # 3.78 10^3/uL (1.8-7.7); Neutrophils % 69.8 %; Nucleated Red Blood Cells % 0 %; Platelet Count 139 10^3/cmm (130-400); Red Cell Distribution Width 19.2 % (12.1-15.1); White Blood Count 5.4 10^3/uL (4.0-10.0)
[2020-03-04 05:24] LABS: INR 1.39 (0.8-1.2)
[2020-03-04 05:26] LABS: D Dimer 3.73 ug/mIFEU (0-0.59)
[2020-03-04 05:29] LABS: Alanine Aminotransferase 24 U/L (0-41); Albumin Level 3.9 g/dL (3.5-5.2); Alkaline Phosphatase 195 IU/L (40-130); Anion Gap 14.2 (5-19); Aspartate Amino Transferase 35 U/L (0-40); Blood Urea Nitrogen 14 mg/dL (6-20); Calcium 8.7 mg/dL (8.5-10.5); Carbon Dioxide 25 mmol/L (22-29); Chloride 105 mmol/L (98-107); Globulin 4.3 g/dL (1.3-4.6); Glomerular Filtration Rate 88.3 mL/min (90-130); Glucose 264 mg/dL (65-115); Lipase 26 U/L (13-60); Magnesium 1.8 mg/dL (1.7-2.3); Osmolality Calculated 300 mOsm/kg (285-295); Potassium 4.2 mmol/L (3.5-5.1); Sodium 140 mmol/L (136-145); Total Bilirubin 0.6 mg/dL (0.15-1.2); Total Protein 8.2 g/dL (6.6-8.7)
[2020-03-04 05:32] LABS: Troponin(5th) Baseline 8 ng/L (0-15)
--- NOTE | 2020-03-04 05:49 | PC.NURSE ---
This RN spoke to patient, patient stated he was having SI tonight, denied active thoughts at this time, MD notified, orders received, sitter placed at room
[2020-03-04 06:10] LABS: Alcohol Level 55 mg/dL (0-10); Salicylate 4.5 mg/dL (3-10)
[2020-03-04 06:13] LABS: Acetaminophen < 5.0 ug/mL (10-30)
--- NOTE | 2020-03-04 06:43 | CTR_ITS ---
PROCEDURE INFORMATION: Exam: CT Angiography Chest With Contrast Exam date and time: 03/04/2020 6:47 AM Age: 54 years old Clinical indication: Shortness of breath; Patient HX: Chest pain with SOB. Knee surgery approximately one month ago. Exam performed twice. Test bolus used before second attempt. Henry never exceeded 116 hu on test bolus. ; Additional info: Chest pain, elevated d dimer TECHNIQUE: Imaging protocol: Computed tomographic angiography of the chest with intravenous contrast. 3D rendering (Not supervised by radiologist): MIP and/or 3D reconstructed images were created by the technologist. Radiation optimization: All CT scans at this facility use at least one of these dose optimization techniques: automated exposure control; mA and/or kV adjustment per patient size (includes targeted exams where dose is matched to clinical indication); or iterative reconstruction. Contrast material: OMNI 350; Contrast volume: 178 ml; Contrast route: INTRAVENOUS (IV); COMPARISON: CT angio chest PE protcl [id number] 05/27/2019 11:42 AM RADIATION DOSE METRICS: Total DLP (mGy-cm): 1993.63 FINDINGS: Pulmonary arteries: Normal. No pulmonary emboli. Aorta: Unremarkable. No aortic aneurysm. No aortic dissection. Lungs: Unremarkable. No consolidation. No masses. Pleural space: Unremarkable. No pneumothorax. No pleural effusion. Heart: There is coronary artery calcification. The heart is not enlarged. Lymph nodes: Unremarkable. No enlarged lymph nodes. Spleen: Splenomegaly with axial spleen diameter of 20 cm. Bones/joints: Degenerative disease in the spine with sclerosis and osteophytes. Soft tissues: Unremarkable. CT/CT angio chest PE protcl [id number] IMPRESSION: 1. No evidence of pulmonary embolus or aortic dissection. 2. Coronary artery disease. 3. Splenomegaly. Radiation Dose CTDIVOL = (mGy): DLP = 1993.63 (mGy-cm)
[2020-03-04 06:49] LABS: Amphetamines Screen Urine Negative (Negative); Barbiturates Screen Urine Negative (Negative); Benzodiazepines Screen Urine Negative (Negative); Cocaine Screen Urine Negative (Negative); Opiate Screen Urine Negative (Negative); PCP Screen Urine Negative (Negative); THC Screen Urine Negative (Negative)
[2020-03-04] MEDS: iohexol 350 mg/mL 100 mL Btl IV ×2 (06:58→07:15)
--- NOTE | 2020-03-04 07:00 | ECG_ITS ---
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: : 1965 Requested By: Faby Gordon Order Number: [id number] [place] MD: REA YEBAOH Measurements Intervals [place] Rate: 96 P: 49 MD: 175 QRS: -44 QRSD: 119 T: 73 QT: 422 QTc: 535 Interpretive Statements SINUS RHYTHM LEFT AXIS DEVIATION [QRS AXIS < -30] POSSIBLE LEFT VENTRICULAR HYPERTROPHY [VOLTAGE CRITERIA PLUS LAE OR QRS WIDENING] NONSPECIFIC T-WAVE ABNORMALITY PROLONGED QT INTERVAL Compared to ECG 03/04/2020 05:02:40 Prolonged QT interval now present Ventricular premature complex(es) no longer present T-wave abnormality still present Electronically Signed On 03-04-2020 19:33:04 FIELD ENUMERATOR by REA YEBOAH [id number]
[2020-03-04 07:26] LABS: Urine Appearance Clear (CLEAR); Urine Color Yellow (Yellow)
[2020-03-04 07:27] LABS: Add Urine Culture? No; Add Urine Microscopic? YES; Bacteria Urine TRACE /hpf; Bilirubin Urine Neg (Negative); Blood Urine Neg (Negative); Glucose Urine UA 2+ (Normal); Ketones Urine Negative (Negative); Leukocyte Esterase Urine Negative (Negative); Mucus Urine TRACE /hpf; Nitrate Urine Negative (Negative); Protein Urine Trace (Negative); Specific Gravity, Urine 1.025 (1.005-1.030); Squamous Epithelial Cell Urine 0-4 /hpf (0-5); Urobilinogen Urine 1 mg/dL (Negative); WBC Urine 0-4 /hpf (0-5)
--- NOTE | 2020-03-04 11:00 | ECG_ITS ---
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: : 1965 Requested By: Faby Gordon Order Number: [id number] Magnolia MD: REA YEBOAH Measurements Intervals [place] Rate: 99 P: 27 AL: 160 QRS: -40 QRSD: 117 T: 70 QT: 382 QTc: 491 Interpretive Statements SINUS RHYTHM MARKED LEFT AXIS DEVIATION [QRS AXIS < -30] POSSIBLE LEFT VENTRICULAR HYPERTROPHY [VOLTAGE CRITERIA PLUS LAE OR QRS WIDENING] NONSPECIFIC ST & T-WAVE ABNORMALITY Compared to ECG 03/04/2020 07:30:04 Prolonged QT interval no longer present T-wave abnormality still present Electronically Signed On 03-04-2020 19:32:33 RAILROAD DISPATCHER by REA YEBOAH [id number]
[2020-03-04 11:45] LABS: Glucose Point of Care 222 mg/dL (70-110)
[2020-03-04] MEDS: sertraline 100 mg Tablet PO (14:00)
[2020-03-04] MEDS: lisinopril 5 mg Tablet PO (14:00)
[2020-03-04] MEDS: gabapentin 300 mg Capsule 600 MG PO ×2 (14:00→21:44)
[2020-03-04] MEDS: spironolactone 25 mg Tablet PO (14:00)
[2020-03-04] MEDS: potassium chloride ER 20 mEq Tablet PO ×2 (14:12→21:45)
[2020-03-04] MEDS: apixaban 5 mg Tablet PO ×2 (14:12→21:46)
[2020-03-04] MEDS: amiodarone 200 mg Tablet PO (14:13)
[2020-03-04] MEDS: ropinirole 1 mg Tablet PO ×2 (14:13→21:45)
[2020-03-04] MEDS: amlodipine 10 mg Tablet PO (14:13)
[2020-03-04] MEDS: ARIPiprazole 10 mg Tablet 5 MG PO (14:13)
[2020-03-04] MEDS: FUROsemide 40 mg Tablet PO ×2 (14:13→21:46)
[2020-03-04] MEDS: carvedilol 6.25 mg Tablet PO ×2 (14:13→21:46)
[2020-03-04] MEDS: acetaminophen 325 mg Tablet 650 MG PO ×2 (17:04→21:48)
[2020-03-04 20:04] LABS: Glucose Point of Care 175 mg/dL (70-110)
[2020-03-04] MEDS: CELEcoxib 200 mg Capsule PO (21:46)
[2020-03-04] MEDS: hyDROXYzine 25 mg Capsule 50 MG PO (21:48)
[2020-03-04] MEDS: insulin glargine 100 units/1 mL 55 UNIT SUBCUT (21:49)
[2020-03-05 06:00] VITALS: BP 129/68; PULSE 78; RESP 16; TEMP 36.6; O2SAT 93
--- NOTE | 2020-03-05 06:09 | PM.NHP ---
Providers/Chief Complaint Admitting Physician: Suresh Martin MD Primary Care Provider: Contreras Faustin DO Chief Complaint: chest pain HPI NPU History of Present Illness Chun Webster JR is a 54 year old male who presented to the emergency department with the following report: Chief Complaint: Chest Pain Stated Complaint: chest pain Time Seen by Provider: 03/04/20 04:56 Source: patient and EMS Mode of arrival: EMS Limitations: no limitations History of Present Illness: HPI narrative: Mr. Webster is a nice 54-year-old male who comes in complaining of chest pain that awoke him from sleep. He states that he woke with chest pain described as a sharp pain that did not radiate. He also describes it as a tightness. He states that he noticed that he was sweating profusely upon awakening. He had associated shortness of breath along with nauseousness and he threw up twice. Patient states that the symptoms lasted for about 10 minutes after awakening and slowly dissipated until the resolution. Patient's not had any discomfort or symptoms since. Patient did call EMS who have stated they did not do anything in route as the patient's been asymptomatic since their picking him up. Patient states that he has a history of atrial fibrillation, congestive heart failure and heart attack but he is never received a stent only had a diagnostic heart cath. He states this was performed at [facility] in the past. Patient is currently on Eliquis for his atrial fibrillation. This time the patient states he is pain-free. Patient denies any similar symptoms to this recently. Associated symptoms: Reports diaphoresis, dyspnea, nausea and vomiting; Deny abdominal pain, fever(s), palpitations or syncope. He endorsed suicidal thoughts, and being overwhelmed in addition to the ED report and was admitted to the neuropsychiatric unit for definitive treatment of those issues. Today he presents reporting that this is his second psychiatric hospitalization with the first 1 being about a year ago. He reports that things got bad because his and he were getting a divorce and she took his children. He reports he still has not seen him since last March. He reports that he started getting therapy in [place] as well. He reports that there has been a bad week overall for reasons he did not really get into and reports that yesterday he just felt completely overwhelmed, had bad week turned into a very bad night, he had thoughts that were not good and so that is why he came to the hospital. That chest pain that was reported he has come to proceed has to be anxiety about his circumstances. He denies any history of previous suicide attempts. He denies smoking cigarettes, reports that he drinks alcohol very little but did have some drinking issues in the past, denies marijuana cocaine or any other illicit drug use. He did go to rehab in October 2019 for 42 days after having his 1 and only DUI in May 2019. He reports recently had to have his left knee replaced and has had some difficulty with ambulation. He reports that he was started on Abilify which has been helpful and that overall he feels his current medications are helpful he has had a really bad night has no interest in making any changes after we had a discussion of the risks, benefits and alternatives of possibly making changes. Psychiatric history: As above. Abuse 3: Above. Family history: He denies mental health or addiction issues or any suicide attempts or completions in his biological family. Developmental history: He denies any problems with his mom's with him or or delivery. He reports he learned to walk and talk and met his developmental milestones on time. He reports that once he went to school when he was younger he did not need speech therapy, learning support, emotional support or special education classes. Psychosocial history: He reports his mother and father were together when he was born and that he and his younger sister are the only product of that union. He reports that his childhood was great and he denies any emotional, physical or sexual abuse. 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 He endorses being a heterosexual with his longest relationship being 21 years. He was 3 times and 3 times, he has 2 children a 14-year-old son and 11-year-old daughter. He was in the for 2 months entering the [place] but he had not told the truth about a knee problem he had and so he had a medical discharge. He reports he believes in God. 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 He currently lives in an apartment alone. Legal history: Never been in snf or had significant legal peril. Medical history: Recent left knee surgery, history of cardiac problems like congestive heart failure diabetes hyperlipidemia hypertension and restless leg. Meds NPU Home Medications Medication Instructions Recorded Confirmed Last Taken Type Lanclive Huertaostar U-100 Insulin 55 unit SUBCUT BID 05/27/19 03/04/20 02/29/20 History amlodipine 10 mg PO DAILY 05/27/19 03/04/20 01/04/20 History multivitamin [Multiple Vitamins] 1 tab PO DAILY 05/27/19 03/04/20 01/04/20 History ropinirole 1 mg PO BID 05/27/19 03/04/20 01/04/20 History Eliquis 5 mg PO BID 12/31/19 03/04/20 02/29/20 History amiodarone 200 mg PO DAILY 12/31/19 03/04/20 01/03/20 History aripiprazole 5 mg PO DAILY 12/31/19 03/04/20 01/04/20 History carvedilol 6.25 mg PO BID 12/31/19 03/04/20 01/04/20 History furosemide 40 mg PO BID 12/31/19 03/04/20 01/04/20 History potassium chloride 20 meq PO BID 12/31/19 03/04/20 01/04/20 History spironolactone 25 mg PO DAILY 12/31/19 03/04/20 01/04/20 History lisinopril 5 mg PO DAILY 01/05/20 03/04/20 Unknown History celecoxib 200 mg PO Q12H #60 cap 01/07/20 03/04/20 Unknown Rx fluticasone propionate 2 spray INTRANASAL DAILY PRN 03/04/20 03/04/20 Unknown History gabapentin 600 mg PO TID 03/04/20 03/04/20 Unknown History sertraline 100 mg PO DAILY 03/04/20 03/04/20 Unknown History Allergies Allergy/AdvReac Type Severity Reaction Status Date / Time trazodone Allergy Unknown Verified 03/04/20 09:49 PFSH NPU PFSH: Medical History Angioedema Atrial fibrillation Congestive heart failure Diabetes Hyperlipidemia Hypertension Psoriasis Restless leg syndrome Surgical History H/O knee surgery Hx of cardiac cath Family History Father Cancer Lung Mother Cancer Brain Other Diabetes Hypertension Social History Smoking and tobacco status: never smoked Alcohol intake: current Alcohol intake frequency: holidays/special occasions only Household members: friend(s) Housing: Apartment Mental Status Exam MSE Comments: This is an obese white male with adequate dress, grooming and eye contact. No abnormal movements except for mild psychomotor retardation. Cooperative with exam in no acute distress. Speech was decreased rate and volume. Mood described as a little better, affect subdued. Thought process organized. Thought content: Patient denied any suicidal or homicidal ideation, there were no delusions reported or noted, he denies any auditory or visual hallucinations. Attention and concentration appeared intact and memory appeared reliable but none were formally tested. He is alert and oriented x3. Insight and judgment are limited but improving and impulse control is improving. Vitals/I&O/Wt Last Vital Signs Temp 97.6 F 03/04/20 22:00 Pulse 89 03/04/20 22:00 Resp 19 H 03/04/20 22:00 BP 168/85 03/04/20 22:00 Pulse Ox 95 03/04/20 22:00 03/04/20 03/04/20 03/05/20 14:59 22:59 06:59 Intake Total 360 / 360 Balance 360 / 360 Weight last 48 hrs Weight 127.006 kg Data NPU : 03/04/20 05:00 03/04/20 05:00 A&P Assessment and plan (1) Atrial fibrillation: Status: Acute (2) S/P total knee arthroplasty: Status: Acute Qualifiers: Laterality: left Qualified Code(s): Z96.652 - Presence of left artificial knee joint (3) Chest pain: Status: Acute Qualifiers: Chest pain type: unspecified Qualified Code(s): R07.9 - Chest pain, unspecified (4) Hypertension: Status: Acute Qualifiers: Hypertension type: essential hypertension Qualified Code(s): I10 - Essential (primary) hypertension (5) Diabetes: Status: Acute (6) Anxiety: Status: Acute (7) Mood disorder: Status: Acute (8) Suicidal thoughts: Status: Acute (9) Adjustment disorder with mixed disturbance of emotions and conduct: Status: Acute Additional A&P Information This is a 54-year-old white male with a recent history of difficulties after his most recent divorce with some history of addiction and recently reporting feeling overwhelmed above presents today reporting that he feels better and is not interested in making any significant changes. 1. Continue current medication. 2. Continue every 15 minute checks for safety. 3. Encourage individual, group and milieu therapy. 4. Explore recent addictive behavior to make sure there has not been a new uptick in drinking or new addictive behavior. 5. Evaluate for credible lethality in accordance with 96-hour hold. Involuntary Hold Information 96 Hour Hold: 96 Hour Involuntary Admission: Yes 96 Hour Hold Ending Date: 03/10/20 96 Hour Hold Ending Time: 05:52 Attestations NPU Medical Necessity Statement*: Inpatient hospitalization is medically necessary and the clinically appropriate intervention at this time. We will monitor medications and make changes as indicated. He will be in the hospital for over 2 midnights. Likely length of stay 2 to 4 days. Coding Level of Care Code Acute Staffing Branch Manager for Shreya Espinoza Diagnoses Atrial fibrillation I48.91 S/P total knee arthroplasty Z96.652 Laterality: left Chest pain R07.9 Chest pain type: unspecified Hypertension I10 Hypertension type: essential hypertension Diabetes E11.9 Anxiety F41.9 Mood disorder F39 Suicidal thoughts R45.851 Adjustment disorder with mixed disturbance of emotions and conduct F43.25
[2020-03-05 06:30] LABS: Glucose Point of Care 177 mg/dL (70-110)
[2020-03-05] MEDS: insulin glargine 100 units/1 mL 55 UNIT SUBCUT ×2 (07:49→20:27)
[2020-03-05] MEDS: potassium chloride ER 20 mEq Tablet PO (07:52)
[2020-03-05] MEDS: ARIPiprazole 10 mg Tablet 5 MG PO (07:52)
[2020-03-05] MEDS: CELEcoxib 200 mg Capsule PO ×2 (07:53→20:23)
[2020-03-05] MEDS: ropinirole 1 mg Tablet PO ×2 (07:53→20:22)
[2020-03-05] MEDS: lisinopril 5 mg Tablet PO (07:53)
[2020-03-05] MEDS: apixaban 5 mg Tablet PO ×2 (07:53→20:26)
[2020-03-05] MEDS: multivitamin therapeutic Tablet 1 TAB PO (07:54)
[2020-03-05] MEDS: gabapentin 300 mg Capsule 600 MG PO ×3 (07:54→20:22)
[2020-03-05] MEDS: amlodipine 10 mg Tablet PO (07:54)
[2020-03-05] MEDS: amiodarone 200 mg Tablet PO (07:54)
[2020-03-05] MEDS: spironolactone 25 mg Tablet PO (07:55)
[2020-03-05] MEDS: FUROsemide 40 mg Tablet PO ×2 (07:55→20:23)
[2020-03-05] MEDS: carvedilol 6.25 mg Tablet PO ×2 (07:55→20:23)
[2020-03-05] MEDS: sertraline 100 mg Tablet PO (07:55)
[2020-03-05 11:22] LABS: Glucose Point of Care 177 mg/dL (70-110)
[2020-03-05 14:00] VITALS: BP 134/82; PULSE 81; RESP 18; TEMP 36.6; O2SAT 96
[2020-03-05 16:37] LABS: Glucose Point of Care 175 mg/dL (70-110)
[2020-03-05] MEDS: acetaminophen 325 mg Tablet 650 MG PO (17:37)
[2020-03-05 19:37] LABS: Glucose Point of Care 209 mg/dL (70-110)
[2020-03-05] MEDS: potassium chloride ER 10 mEq Tablet 20 MEQ PO (21:07)
[2020-03-05 21:14] VITALS: BP 147/82; PULSE 72; RESP 18; TEMP 36.7; O2SAT 94
[2020-03-06 06:00] VITALS: BP 132/75; PULSE 85; RESP 18; TEMP 36.6; O2SAT 95
[2020-03-06 06:35] LABS: Glucose Point of Care 141 mg/dL (70-110)
[2020-03-06] MEDS: ropinirole 1 mg Tablet PO ×2 (07:48→21:14)
[2020-03-06] MEDS: CELEcoxib 200 mg Capsule PO ×2 (07:49→21:14)
[2020-03-06] MEDS: ARIPiprazole 10 mg Tablet 5 MG PO (07:49)
[2020-03-06] MEDS: FUROsemide 40 mg Tablet PO ×2 (07:49→16:45)
[2020-03-06] MEDS: multivitamin therapeutic Tablet 1 TAB PO (07:49)
[2020-03-06] MEDS: spironolactone 25 mg Tablet PO (07:49)
[2020-03-06] MEDS: potassium chloride ER 10 mEq Tablet 20 MEQ PO ×2 (07:50→21:14)
[2020-03-06] MEDS: carvedilol 6.25 mg Tablet PO ×2 (07:50→21:14)
[2020-03-06] MEDS: gabapentin 300 mg Capsule 600 MG PO ×3 (07:50→21:14)
[2020-03-06] MEDS: lisinopril 5 mg Tablet PO (07:50)
[2020-03-06] MEDS: amiodarone 200 mg Tablet PO (07:50)
[2020-03-06] MEDS: amlodipine 10 mg Tablet PO (07:50)
[2020-03-06] MEDS: apixaban 5 mg Tablet PO ×2 (07:51→21:14)
[2020-03-06] MEDS: sertraline 100 mg Tablet PO (07:51)
[2020-03-06] MEDS: insulin glargine 100 units/1 mL 55 UNIT SUBCUT ×2 (08:04→21:11)
[2020-03-06 11:12] LABS: Glucose Point of Care 169 mg/dL (70-110)
[2020-03-06 14:00] VITALS: BP 119/71; PULSE 75; RESP 18; TEMP 36.8
[2020-03-06] MEDS: acetaminophen 325 mg Tablet 650 MG PO (14:04)
--- NOTE | 2020-03-06 16:38 | P.PN_ITS ---
Subjective NPU Subjective: Interval history: Darin presents today reporting that things are going okay. He continues to report that overall he has no new feelings that he needs to change his medications. He reports that he is eating and sleeping well and we discussed the plan for possible consideration for discharge tomorrow with assistance from the treatment team for follow-up. Mental Status Exam MSE Comments: This is an obese white male with adequate dress, grooming and eye contact. No abnormal movements except for mild psychomotor retardation. Cooperative with exam in no acute distress. Speech was more normal rate and volume. Mood described as pretty good less, affect subdued. Thought process organized. Thought content: Patient denied any suicidal or homicidal ideation, there were no delusions reported or noted, he denies any auditory or visual hallucinations. Attention and concentration appeared intact and memory appeared reliable but none were formally tested. He is alert and oriented x3. Insight and judgment are limited but improving and impulse control is improving. Vitals/I&O/Wt Last Vital Signs Temp 98.3 F 03/06/20 14:00 Pulse 75 03/06/20 14:00 Resp 18 03/06/20 14:00 BP 119/71 03/06/20 14:00 Pulse Ox 95 03/06/20 06:00 Weight last 48 hrs Weight 138.856 kg Data NPU : 03/04/20 05:00 03/04/20 05:00 A&P Additional A&P Information (1) Atrial fibrillation: (2) S/P total knee arthroplasty: (3) Chest pain: (4) Hypertension: (5) Diabetes: (6) Anxiety: (7) Mood disorder: (8) Suicidal thoughts: (9) Adjustment disorder with mixed disturbance of emotions and conduct: This is a 54-year-old white male with a recent history of difficulties after his most recent divorce with some history of addiction and recently reporting feeling overwhelmed above presents today reporting that he feels better and is not interested in making any significant changes. 1. Continue current medication. 2. Continue every 15 minute checks for safety. 3. Encourage individual, group and milieu therapy. 4. Explore recent addictive behavior to make sure there has not been a new uptick in drinking or new addictive behavior. 5. Evaluate for credible lethality in accordance with 96-hour hold. Involuntary Hold Information 96 Hour Hold: 96 Hour Involuntary Admission: Yes 96 Hour Hold Ending Date: 03/10/20 96 Hour Hold Ending Time: 05:52 Attestations NPU Medical Necessity Statement*: Inpatient hospitalization is medically necessary and the clinically appropriate intervention at this time. We will monitor medications and make changes as indicated. Likely length of stay 1-3 days. Coding Level of Care Code Acute Buildings And Grounds Director for Shreya Espinoza
[2020-03-06 16:42] LABS: Glucose Point of Care 165 mg/dL (70-110)
[2020-03-06 20:19] VITALS: BP 154/103; PULSE 98; RESP 17; TEMP 37.1; O2SAT 95
[2020-03-06 20:29] LABS: Glucose Point of Care 196 mg/dL (70-110)
[2020-03-07 06:00] VITALS: BP 136/79; PULSE 80; RESP 18; TEMP 36.3; O2SAT 94
[2020-03-07 07:36] LABS: Glucose Point of Care 187 mg/dL (70-110)
[2020-03-07] MEDS: ARIPiprazole 10 mg Tablet 5 MG PO (08:45)
[2020-03-07] MEDS: carvedilol 6.25 mg Tablet PO (08:45)
[2020-03-07] MEDS: FUROsemide 40 mg Tablet PO ×2 (08:45→16:09)
[2020-03-07] MEDS: multivitamin therapeutic Tablet 1 TAB PO (08:46)
[2020-03-07] MEDS: spironolactone 25 mg Tablet PO (08:46)
[2020-03-07] MEDS: gabapentin 300 mg Capsule 600 MG PO ×2 (08:46→15:39)
[2020-03-07] MEDS: amlodipine 10 mg Tablet PO (08:46)
[2020-03-07] MEDS: apixaban 5 mg Tablet PO (08:46)
[2020-03-07] MEDS: CELEcoxib 200 mg Capsule PO (08:46)
[2020-03-07] MEDS: ropinirole 1 mg Tablet PO (08:46)
[2020-03-07] MEDS: potassium chloride ER 10 mEq Tablet 20 MEQ PO (08:47)
[2020-03-07] MEDS: lisinopril 5 mg Tablet PO (08:47)
[2020-03-07] MEDS: sertraline 100 mg Tablet PO (08:47)
[2020-03-07] MEDS: insulin glargine 100 units/1 mL 55 UNIT SUBCUT (08:49)
[2020-03-07] MEDS: amiodarone 200 mg Tablet PO (08:59)
[2020-03-07 11:18] LABS: Glucose Point of Care 103 mg/dL (70-110)
--- NOTE | 2020-03-07 11:55 | PM.NDC ---
Diagnoses at Discharge Discharge Diagnosis (1) Atrial fibrillation: Status: Acute (2) S/P total knee arthroplasty: Status: Acute Permanent problem details: Left total knee arthroplasty utilizing the following Aman implants: A size 6 triathlon posterior stabilized press-fit left femoral component, a size 7 triathlon titanium tibial component, press-fit, a triathlon tibial bearing insert size 7 x 9 mm, and an asymmetric 38 mm x 11 mm patella Qualifiers: Laterality: left Qualified Code(s): Z96.652 - Presence of left artificial knee joint (3) Chest pain: Status: Resolved Qualifiers: Chest pain type: unspecified Qualified Code(s): R07.9 - Chest pain, unspecified (4) Hypertension: Status: Acute Qualifiers: Hypertension type: essential hypertension Qualified Code(s): I10 - Essential (primary) hypertension (5) Diabetes: Status: Acute (6) Anxiety: Status: Acute (7) Mood disorder: Status: Acute (8) Suicidal thoughts: Status: Resolved (9) Adjustment disorder with mixed disturbance of emotions and conduct: Status: Acute Reason for Visit Reason for Visit: chest pain Brief History: History of Present Illness hCun Webster JR is a 54 year old male who presented to the emergency department with the following report: Chief Complaint: Chest Pain Stated Complaint: chest pain Time Seen by Provider: 03/04/20 04:56 Source: patient and EMS Mode of arrival: EMS Limitations: no limitations History of Present Illness: HPI narrative: Mr. Webster is a nice 54-year-old male who comes in complaining of chest pain that awoke him from sleep. He states that he woke with chest pain described as a sharp pain that did not radiate. He also describes it as a tightness. He states that he noticed that he was sweating profusely upon awakening. He had associated shortness of breath along with nauseousness and he threw up twice. Patient states that the symptoms lasted for about 10 minutes after awakening and slowly dissipated until the resolution. Patient's not had any discomfort or symptoms since. Patient did call EMS who have stated they did not do anything in route as the patient's been asymptomatic since their picking him up. Patient states that he has a history of atrial fibrillation, congestive heart failure and heart attack but he is never received a stent only had a diagnostic heart cath. He states this was performed at [facility] in the past. Patient is currently on Eliquis for his atrial fibrillation. This time the patient states he is pain-free. Patient denies any similar symptoms to this recently. Associated symptoms: Reports diaphoresis, dyspnea, nausea and vomiting; Deny abdominal pain, fever(s), palpitations or syncope. He endorsed suicidal thoughts, and being overwhelmed in addition to the ED report and was admitted to the neuropsychiatric unit for definitive treatment of those issues. Today he presents reporting that this is his second psychiatric hospitalization with the first 1 being about a year ago. He reports that things got bad because his and he were getting a divorce and she took his children. He reports he still has not seen him since last March. He reports that he started getting therapy in [place] as well. He reports that there has been a bad week overall for reasons he did not really get into and reports that yesterday he just felt completely overwhelmed, had bad week turned into a very bad night, he had thoughts that were not good and so that is why he came to the hospital. That chest pain that was reported he has come to proceed has to be anxiety about his circumstances. He denies any history of previous suicide attempts. He denies smoking cigarettes, reports that he drinks alcohol very little but did have some drinking issues in the past, denies marijuana cocaine or any other illicit drug use. He did go to rehab in October 2019 for 42 days after having his 1 and only DUI in May 2019. He reports recently had to have his left knee replaced and has had some difficulty with ambulation. He reports that he was started on Abilify which has been helpful and that overall he feels his current medications are helpful he has had a really bad night has no interest in making any changes after we had a discussion of the risks, benefits and alternatives of possibly making changes. Psychiatric history: As above. Abuse 3: Above. Family history: He denies mental health or addiction issues or any suicide attempts or completions in his biological family. Developmental history: He denies any problems with his mom's with him or or delivery. He reports he learned to walk and talk and met his developmental milestones on time. He reports that once he went to school when he was younger he did not need speech therapy, learning support, emotional support or special education classes. Psychosocial history: He reports his mother and father were together when he was born and that he and his younger sister are the only product of that union. He reports that his childhood was great and he denies any emotional, physical or sexual abuse. 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 He endorses being a heterosexual with his longest relationship being 21 years. He was 3 times and 3 times, he has 2 children a 14-year-old son and 11-year-old daughter. He was in the for 2 months entering the [place] but he had not told the truth about a knee problem he had and so he had a medical discharge. He reports he believes in God. 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 He currently lives in an apartment alone. Legal history: Never been in shelter or had significant legal peril. Medical history: Recent left knee surgery, history of cardiac problems like congestive heart failure diabetes hyperlipidemia hypertension and restless leg. Hospital Course Hospital Course Chun presented to the emergency department reporting multiple medical concerns and then ultimately suicidal ideation. He is been to the neuropsychiatric and definitive treatment of those use. On the unit he quickly acclimated to the individual, group and milieu therapies provided. He was open to the fact that he had some very stressful issues on his plate and he feels he was just overwhelmed and needed a supportive environment. He was not interested in medication changes and ultimately was able to contract for safety. During the hospitalization he had routine laboratory studies which were within normal limits except for few outliers Additionally there was a general medical evaluation which was also within normal limits and revealed no new acute processes. Discharge summary: At the time of discharge, he was absent lethality or psychosis. His been anxiety were well managed. He endorsed a plan to avoid all drugs of abuse and follow-up with the post hospitalization recommendations of the treatment team. He was evaluated and deemed absent credible lethality and had achieved a maximum benefit from inpatient hospitalization, so he was discharged. Involuntary Hold Information 96 Hour Hold: 96 Hour Involuntary Admission: Yes 96 Hour Hold Ending Date: 03/10/20 96 Hour Hold Ending Time: 05:52 Mental Status Exam MSE Comments: This is an obese white male with adequate dress, grooming and eye contact. No abnormal movements except for resolving psychomotor retardation. Cooperative with exam in no acute distress. Speech was normal rate and volume. Mood described as good, affect congruent. Thought process organized. Thought content: Patient denied any suicidal or homicidal ideation, there were no delusions reported or noted, he denies any auditory or visual hallucinations. Attention and concentration appeared intact and memory appeared reliable but none were formally tested. He is alert and oriented x3. Insight and judgment are improving and impulse control is improving. Discharge Data Data Completed and Pending: Completed Studies During Hospitalization Category Date Time Status CT angio chest PE protcl [id number] Stat Cat Scan 03/04/20 06:43 Completed XR chest 1V alexy ble [id number] Stat Exams 03/04/20 04:59 Completed Labs from last 24 hours 03/07/20 03/07/20 03/06/20 11:14 07:32 20:26 POC Glucose 103 187 196 03/06/20 16:39 POC Glucose 165 Vitals: Last Vital Signs Temp 97.3 F L 03/07/20 06:00 Pulse 80 03/07/20 06:00 Resp 18 03/07/20 06:00 BP 136/79 03/07/20 06:00 Pulse Ox 94 03/07/20 06:00 Discharge Plan Discharge Patient Disposition: Home Condition: Stable Prescriptions: Continued multivitamin [Multiple Vitamins] Tablet 1 tab PO DAILY RF: 0 ropinirole 1 mg Tablet 1 mg PO BID RF: 0 amlodipine 10 mg Tablet 10 mg PO DAILY RF: 0 Lantus Solostar U-100 Insulin 100 unit/mL (3 mL) Insulin Pen 55 unit SUBCUT BID RF: 0 furosemide 40 mg Tablet 40 mg PO BID RF: 0 carvedilol 6.25 mg Tablet 6.25 mg PO BID RF: 0 amiodarone 200 mg Tablet 200 mg PO DAILY RF: 0 spironolactone 25 mg Tablet 25 mg PO DAILY RF: 0 aripiprazole 5 mg Tablet 5 mg PO DAILY RF: 0 Eliquis 5 mg Tablet 5 mg PO BID RF: 0 potassium chloride 20 mEq Tablet Extended Release 20 meq PO BID RF: 0 lisinopril 5 mg tablet 5 mg PO DAILY RF: 0 Hold Instructions: Resume on 01/14/20. celecoxib 200 mg Capsule 200 mg PO Q12H Qty: 60 RF: 0 gabapentin 600 mg tablet 600 mg PO TID RF: 0 sertraline 100 mg tablet 100 mg PO DAILY RF: 0 fluticasone propionate 50 mcg/actuation spray,suspension 2 spray INTRANASAL DAILY PRN (Reason: UNKNOWN) RF: 0 Discharge Orders: Discharge Order (Routine); Ordered 03/07/20 Ordered By: Suresh Martin Referrals: [facility] [Other] (you said that you need to go to different provider. [facility] Family clinic is an option: Family Practice 8 a.m. to 5 p.m. ~ Saturday - Saturday Walk-In Clinic 7 a.m. to 7 p.m. ~ Saturday - Saturday 10 a.m. to 7 p.m. ~ Saturday - Saturday ) [facility] Behavioral Health Care [Outside] - 1-3 days (if you are interested in outpatient mental health services you can contact behavioral healthcare ) Discharge Diet: Cardiac and Diabetic Discharge Activity: Resume usual activity Patient Instructions: Mood Disorders (DC), Separation Anxiety Disorder (DC) Activity Restrictions/Additional Instructions: continue AA meetings Discharge Attestations NPU Time Spent in Discharge Care*: less than 30 min Specific Discharge Activities: Specific discharge activities: educating patient, discussing with disability case manager/social workers/dc planners, documenting/other paperwork and evaluating patient/reviewing data Coding Level of Care Code Acute Artists' Model for g Fwd Diagnoses Atrial fibrillation I48.91 S/P total knee arthroplasty Z96.652 Laterality: left Chest pain R07.9 Chest pain type: unspecified Hypertension I10 Hypertension type: essential hypertension Diabetes E11.9 Anxiety F41.9 Mood disorder F39 Suicidal thoughts R45.851 Adjustment disorder with mixed disturbance of emotions and conduct F43.25
[2020-03-07 12:48] VITALS: BP 136/79; PULSE 80; RESP 18; TEMP 36.3; O2SAT 97
--- NOTE | 2020-03-08 14:57 | DCPLANNER ---
core manager had message to schedule an out patient stress test for patient. core manager faxed order to centralized scheduling. core manager will call for appointment information.
--- NOTE | 2020-03-10 14:20 | DCPLANNER ---
Patient has an outpatient stress test scheduled for , March 17, 2020 at 11:30. Centralized scheduling called patient with appointment information.
--- NOTE | 2020-04-29 12:43 | DCPLANNER ---
Patient had a stress test scheduled for 03.17.20 - patient did not attend appointment.
== END 2020-03-07 16:56 | disposition home or self-care (01) | DRG 882 ==
LOC: ER 06:06 → NP 10:38
PROVIDERS: Emergency Medicine; Admitting Provider Psychiatry & Neurology Psychiatry; Emergency Provider Family Medicine; PCP Electrodiagnostic Medicine; Visit Provider Psychiatry & Neurology Psychiatry
DX: F43.25 Adjustment disorder with mixed disturbance of emotions and conduct (principal); R45.851 Suicidal ideations; E66.9 Obesity, unspecified; Z68.38 Body mass index [BMI] 38.0-38.9, adult; F41.9 Anxiety disorder, unspecified; R07.9 Chest pain, unspecified; Z96.652 Presence of left artificial knee joint; G25.81 Restless legs syndrome; L40.9 Psoriasis, unspecified; E78.5 Hyperlipidemia, unspecified; E11.9 Type 2 diabetes mellitus without complications; I48.91 Unspecified atrial fibrillation; I50.9 Heart failure, unspecified; I11.0 Hypertensive heart disease with heart failure; Z79.01 Long term (current) use of anticoagulants; Z79.4 Long term (current) use of insulin
CPT/HCPCS: 12345; 36416; 71045; 71275; 80053; 80306; 80307; 81001; 82962; 83690; 83735; 84484; 85025; 85378; 85610; 93005; 96372; 97110; 97116; 97161; 99283; J1815 ×2; Q9967

== ENCOUNTER → 2020-03-16 09:46 | Outpatient (BNVA) | payer MEDICAID, SELFPAY | PROVIDERS: PCP Electrodiagnostic Medicine; Visit Provider Specialist | DX: Z47.1 Aftercare following joint replacement surgery (principal); Z96.652 Presence of left artificial knee joint | CPT/HCPCS: 73560; 73565 ==

== ENCOUNTER 2020-03-22 11:44 | Outpatient (CLI) | payer MEDICAID, SELFPAY | END 2020-03-22 11:45 | disposition home or self-care (01) | LOC: LAB 12-26 11:32 | PROVIDERS: Visit Provider Registered Nurse | DX: I10 Essential (primary) hypertension (principal); E78.5 Hyperlipidemia, unspecified | CPT/HCPCS: 80053; 80061; 83036; 85025 ==

== ENCOUNTER 2020-04-06 16:19 | Inpatient (IN) | payer MEDICAID, SELFPAY ==
[2020-04-06] VITALS (10 sets, daily range): BP systolic 109–150; BP diastolic 62–96; PULSE 86–109; RESP 18–22; TEMP 36.8–37.2; O2SAT 92–98; BMI 36.7
--- NOTE | 2020-04-06 16:24 | XR_ITS ---
WS: [id number] XR knee LT 3V* [id number] REASON FOR EXAM: injury FINDINGS: Multi part supracondylar fracture adjacent to the femoral portion of the total left knee arthroplasty . No significant displacement of the fracture fragments and no significant angulation seen on the lat eral. Large presumed hemarthrosis. XR/XR knee LT 3V* [id number] IMPRESSION: Distal left femoral fracture as above.
--- NOTE | 2020-04-06 16:32 | W.ED.FALL ---
HPI - Fall General: Chief Complaint: Extremity Injury, Lower Stated Complaint: TWISTED L LEG AFTER FALL WITH DEFORMITY Time Seen by Provider: 04/06/20 16:21 Source: patient and EMS Mode of arrival: EMS Limitations: no limitations History of Present Illness: HPI Narrative: 54-year-old male states he fell over a rock at home just prior to arrival. He states he twisted his left knee. He had knee replacement in December and has severe pain to that knee currently. He does have deformity noted states he was unable to bear weight and is unable to bend it. Denies any ankle or hip pain. He states his pain is much worse when he tries to move and improved with rest. Associated symptoms-after fall: Denies abdominal pain, chest pain or headache(s) Review of Systems Const: Denies: fever(s), chills, body aches or change in appetite Eyes: Denies: blurry vision or eye discomfort ENMT: Denies: throat pain or dental pain Card: Denies: chest pain Resp: Denies: dyspnea GI: Denies: abdominal pain, nausea, vomiting or diarrhea : Denies: dysuria Musc: Reports: joint pain Skin/Breast: Denies: rash Neuro: Denies: headache(s) Psych: Denies: depression Max/Lymph: Denies: easy bruising All/Imm: Denies: urticaria PFSH ED PFSH: Medical History Angioedema Atrial fibrillation Congestive heart failure Diabetes Erectile dysfunction Hyperlipidemia Hypertension Neuropathy Psoriasis Restless leg syndrome Surgical History H/O knee surgery Hx of cardiac cath Family History Father Cancer Lung Mother Cancer Brain Other Diabetes Hypertension Social History Smoking and tobacco status: never smoked Alcohol intake: current Alcohol intake frequency: holidays/special occasions only Household members: friend(s) Housing: Apartment Physical Exam Const: COMMON NORMALS: no acute distress, patient oriented x3 and healthy appearing HENMT: COMMON NORMALS: normocephalic and atraumatic HEAD & SCALP: normocephalic and atraumatic Eye: COMMON NORMALS: Equal, round and reactive pupils present and EOMs intact bilaterally PUPIL: Yes Equal, round and reactive pupils present Neck/C-Spine: COMMON NORMALS: full ROM and supple Chest: COMMONS NORMALS: normal inspection of the chest and normal palpation of entire chest wall Resp: COMMON NORMALS: normal respiratory effort, No retractions, No use of accessory muscles and clear to auscultation bilaterally AUSCULTATION: clear to auscultation bilaterally Cardio: COMMON NORMALS: regular rate, regular rhythm and No murmurs present (Cardio) RATE: regular rate RHYTHM: regular rhythm GI: COMMON NORMALS: Normal to inspection, nondistended, normoactive bowel sounds present, Soft to palpation, non-tender and no masses PALPATION: Yes Soft to palpation Extremity: NARRATIVE EXTREMITY EXAM: Obvious deformity to l medial left knee. Distal pulses are intact. Neuro: COMMON NORMALS: patient oriented x3, moves all extremities and no focal motor deficits Psych: COMMON NORMALS: mental status grossly normal, Normal thought process present and cooperative THOUGHT PROCESS: Normal thought process present Skin: COMMON NORMALS: no rashes or lesions noted and no wounds GENERAL SKIN EXAM: no rashes or lesions noted Course Vital Signs: Vital signs: Vital Signs Temperature 98.3 F 04/06/20 16:20 Pulse Rate 87 04/06/20 16:20 Respiratory Rate 18 04/06/20 17:02 Blood Pressure 113/62 04/06/20 16:20 Pulse Oximetry 98 04/06/20 17:02 MDM - Fall MDM Narrative: Medical decision making narrative: Chun presents here after a fall and injured his left knee. He does have a distal femur fracture from the fall. I spoke to Dr. Zheng who did his previous knee replacement and she is consulted. I spoke to the hospitalist as well and will admit patient at this time. He has no other injuries from his fall. No head injury. He has distal pulses intact on my exam. Imaging Data^: CXR: Attestation: I personally reviewed and interpreted this imaging study as follows: My impression: no acute abnormality xr L knee: Attestation: I personally reviewed and interpreted this imaging study as follows: My impression: distal femur fx Discharge Plan Discharge Patient Disposition: Admitted As Inpatient Clinical Impression: Fall Fracture of femur Qualifiers: Encounter type: initial encounter Femur location: distal, unspecified portion Fracture type: closed Fracture morphology: unspecified fracture morphology Laterality: left Qualified Code(s): S72.402A - Unspecified fracture of lower end of left femur, initial encounter for closed fracture Condition: Stable Coding Level of Care Code ED Commercial Banker for g Fwd Exam Comprehensive
--- NOTE | 2020-04-06 16:51 | XRR_ITS ---
PROCEDURE INFORMATION: Exam: XR Chest, 1 View Exam date and time: 04/06/2020 4:57 PM Age: 54 years old Clinical indication: Pre-operative exam; Cardiovascular screening and respiratory screening exam; Patient HX: Twisted left leg after fall; Additional info: FX TECHNIQUE: Imaging protocol: XR of the chest Views: 1 view. COMPARISON: CR XR chest 1V portable [id number] 03/04/2020 5:01 AM FINDINGS: Lungs: Unremarkable. No consolidation. Pleural space: Unremarkable. No pleural effusion. No pneumothorax. Heart/Mediastinum: Cardiomediastinal silhouette is similar. Bones/joints: Fracture deformity of the anterior left 3rd rib. XR/XR chest 1V portable [id number] IMPRESSION: No acute cardiopulmonary process.
[2020-04-06] MEDS: HYDROmorphone 1 mg/mL INJ 1 mL IVP (17:02)
[2020-04-06] MEDS: HYDROmorphone 1 mg/mL INJ 1 mL 0.5 MG IVP (18:11)
[2020-04-06 18:15] LABS: Basophils # 0.1 10^3/uL (0.0-0.1); Basophils % 0.9 %; Eosinophils # 0.1 10^3/uL (0.0-0.8); Eosinophils % 1.4 %; Hematocrit 39.5 % (42.0-52.0); Hemoglobin 12.1 g/dL (11.7-16.6); Lymphocytes # 0.9 10^3/uL (0.8-4.8); Lymphocytes % 15.4 %; Mean Corpuscular HGB Conc 30.6 g/dL (30.0-36.0); Mean Corpuscular Hemoglobin 25.3 pg (28.0-34.0); Mean Corpuscular Volume 82.5 fL (80-94); Mean Platelet Volume 11.8 fL (7.4-10.4); Monocytes # 0.4 10^3/uL (0.2-0.9); Neutrophils # 4.38 10^3/uL (1.8-7.7); Neutrophils % 74.8 %; Nucleated Red Blood Cells % 0 %; Platelet Count 116 10^3/cmm (130-400); Red Blood Count 4.79 10^6/uL (4.1-5.3); Red Cell Distribution Width 16.7 % (12.1-15.1); White Blood Count 5.9 10^3/uL (4.0-10.0)
--- NOTE | 2020-04-06 18:28 | P.HP_ITS ---
Providers/Chief Complaint Admitting Physician: Taqueria Garcia MD Primary Care Provider: Contreras Faustin DO Chief Complaint: TWISTED L LEG AFTER FALL WITH DEFORMITY History of Present Illness Chun Webster JR is a 54 year old male with past medical history of CHF, atrial fibrillation, hypertension, type 2 diabetes mellitus, anxiety, psoriasis, COVID- 19 in December 2019 when he was recently in hospital last month for possible suicidal ideation. He presents to the ER today after twisting his ankle when he got up his car on the rock and falling after which he started having pain in his left knee and leg because of which he came to the ER. Patient denies any dizziness, nausea, vomiting, chest pain, palpitations, headache, dysuria, diarrhea. He states he can walk up to a mile without having any difficulty in breathing or chest pain. He is on insulin for type 2 diabetes mellitus and checks his blood sugars regularly with numbers ranging from 90- 150 last 1 month with highest numbers of 232 and lowest of 85. He states he takes his medications regularly and has not had any change in medications recently. 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 Kiran. He states he tested positive for COVID-19 in December 2019 while [facility]. During that time he was treated with being placed in quarantine and never needed to be admitted for fever or difficulty in breathing. No blood work has been done in the ER so far. On examination he was lying comfortably in bed with heart rate of 87 bpm, irregular, blood pressure 113/60 saturating 98% on room air. Knee x-ray done showed distal left femoral fracture for which he has been admitted for ORIF with Dr. Blunt. Medicine service has been requested because of multiple medical comorbidities. Review of Systems General: Reports: 10 or more systems reviewed and unremarkable except in HPI and below Const: Denies: fever(s), chills, body aches, change in appetite, change in weight, malaise, night sweats, diaphoresis, change in sleep pattern, daytime s leepiness or snoring Eyes: Denies: change in vision, blurry vision, photophobia, eye discomfort or eye discharge ENMT: Denies: throat pain, enlarged tonsils, hoarseness, mouth pain, oral sor es, dry mouth, tinnitus, nasal congestion or post nasal drip Card: Denies: chest pain, palpitations, irregular heart rhythm, edema, swelling of feet/ankles, lightheadedness, syncope, pre-syncope, dyspnea on exertion, orthopnea, leg pain with exertion or acrocyanosis Resp: Denies: dyspnea, productive cough, non-productive cough, wheezing, stridor, pain on inspiration, change in phlegm color, hemoptysis or chest congestion GI: Denies: abdominal pain, nausea, vomiting, hematemesis, coffee ground emesis, dysphagia, heartburn, diarrhea, constipation, bloating, GI cramping, change in bowel habits, pain on defecation, hematochezia or melena : Denies: flank pain, difficulty urinating, dysuria, urinary frequency, urinary urgency, urinary hesitancy, urinary dribbling, difficulty starting urination, change in urine stream, nocturia or hematuria Musc: Denies: neck pain, back pain, extremity pain, joint pain, joint swellin g, joint redness, joint stiffness or limited range of motion Neuro: Denies: headache(s), numbness in extremities, weakness in extremities, sensory changes, lack of coordination, difficulty walking, frequent falls, dizziness, vertigo, confusion, Slurred speech present, difficulty communicating thoughts or seizure-like activity Psych: Denies: anxiety, depression, mood swings, panic attacks, hopelessness or irritability Endo: Denies: polyuria, polydipsia, tired all the time, cold intolerance, excessive sweating, flushing or heat intolerance Max/Lymph: Denies: easy bruising or easy bleeding All/Imm: Denies: tongue swelling, facial swelling or acute wheezing Medications/Allergies Home Medications Medication Instructions Recorded Confirmed Last Taken Type multivitamin [Multiple Vitamins] 1 tab PO DAILY@05/27/19 04/06/20 04/05/20 History fluticasone propionate 2 spray INTRANASAL DAILY PRN 03/04/20 04/06/20 Unknown History amlodipine 10 mg PO DAILY@04/06/20 04/06/20 04/05/20 History apixaban [Eliquis] 5 mg PO BID@04/06/20 04/06/2020 History aripiprazole 5 mg PO DAILY@04/06/20 04/06/20 04/05/20 History carvedilol 6.25 mg PO BID@04/06/20 04/06/20 04/05/20 History furosemide 40 mg PO BID@04/06/20 04/06/20 04/05/20 History gabapentin 600 mg PO TID@04/06/20 04/06/20 04/05/20 History hydroxyzine HCl 25 mg PO TID@04/06/20 04/06/20 04/05/20 History insulin glargine [Lantus Solostar 55 unit SUBCUT BID@04/06/20 04/06/20 04/06/20 History U-100 Insulin] ropinirole 1 mg PO BID@04/06/20 04/06/20 04/05/20 History sertraline 100 mg PO DAILY@04/06/20 04/06/20 04/05/20 History spironolactone 25 mg PO DAILY@04/06/20 04/06/20 04/05/20 History Allergies Allergy/AdvReac Type Severity Reaction Status Date / Time trazodone Allergy Unknown Verified 03/22/20 14:15 PFSH Acute PFSH: Medical History Angioedema Atrial fibrillation Congestive heart failure Diabetes Erectile dysfunction Hyperlipidemia Hypertension Neuropathy Psoriasis Restless leg syndrome Surgical History H/O knee surgery Hx of cardiac cath Family History Father Cancer Lung Mother Cancer Brain Other Diabetes Hypertension Social History Smoking and tobacco status: never smoked Alcohol intake: current Alcohol intake frequency: holidays/special occasions only Household members: friend(s) Housing: Apartment Vitals/I&O/Wt Last Vital Signs Temp 98.3 F 04/06/20 16: Pulse 87 04/06/20 16:20 Resp 18 04/06/20 18:11 BP 113/62 04/06/20 16:20 Pulse Ox 98 04/06/20 18:11 Weight last 48 hrs Weight 133.356 kg Physical Exam Narrative: EXAM NARRATIVE: General: No acute distress, AO x3 HEENT: PERRLA, pupils bilaterally equal and reactive Chest: Normal vesicular breath sounds, no added sounds, equal good air entry bilaterally CVS: S1-S2 irregularly irregular , no murmurs, no tachycardia, no gallops, no rubs Abdomen: Soft, nontender, no organomegaly, bowel sounds present Neuro: No focal deficits, no facial deformity, AO x3, power 5/5 in all limbs Extremities: Peripheral pulses bilaterally palpable, left leg rotated externally with bruise present on the knee, able to wiggle both toes bilaterally. Data : 04/06/20 18:01 04/06/20 18:01 A&P Assessment and plan (1) Fall: Status: Acute (2) Fracture of femur: Status: Acute Qualifiers: Encounter type: initial encounter Femur location: distal, unspecified portion Fracture morphology: unspecified fracture morphology Fracture type: closed Laterality: left Qualified Code(s): S72.402A - Unspecified fracture of lower end of left femur, initial encounter for closed fracture (3) Atrial fibrillation: Status: Acute Qualifiers: Atrial fibrillation type: unspecified chronic Qualified Code(s): I48.20 - Chronic atrial fibrillation, unspecified (4) Congestive heart failure: Status: Acute Qualifiers: Heart failure type: unspecified Heart failure chronicity: chronic Qualified Code(s): I50.9 - Heart failure, unspecified (5) Hypertension: Status: Acute Qualifiers: Hypertension type: essential hypertension Qualified Code(s): I10 - Essential (primary) hypertension (6) Diabetes: Status: Acute Qualifiers: Diabetes mellitus complication status: with hyperglycemia Diabetes mellitus adjunct faculty for medical terminology insulin use: with adjunct faculty for medical terminology use Diabetes mellitus type: type 2 Qualified Code(s): E11.65 - Type 2 diabetes mellitus with hyperglycemia; 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 Fall: Mechanical as he twisted his ankles while walking on the rocks. Fracture femur: Left. Dr. Blunt has been consulted from the ER. Plan for OR on Saturday. Perioperative antibiotics, anticoagulation, physical therapy as per Dr. Blunt. [place] 5 1 tab every 6 hours as needed for pain. Atrial fibrillation: Rate controlled at present. Continue home dose of carvedilol. Telemetry monitoring. Hold Eliquis as patient will be going to the OR on Saturday. Start patient on heparin drip without bolus. We will monitor hemoglobin. Congestive heart failure: Euvolemic at present. Patient takes forsemide 40 mg twice daily, spironolactone 25 mg daily at home. For now start on Lasix 40 mg daily, spironolactone 25 mg daily. Check proBNP. Last echocardiogram from April 2019 shows an EF 55% with grade 2 diastolic dysfunction with mildly dilated LA. Hypertension: Known goal blood pressure less than 140/90 Hg. For now continue with home dose of amlodipine. We will continue to monitor blood pressures. Type 2 diabetes mellitus: Continue with home dose of Lantus 55 units twice daily. Start on insulin sliding scale moderate dose protocol. Check HbA1c. COVID-19: Tested positive in December. Has finished his quarantine. Asymptomatic at present. Chest x-ray. COVID-19 PCR has been sent from the ER. For now isolation precautions. Anxiety: Continue with home dose of and baseline, Zoloft. Continue other chronic medication like hydroxyzine, gabapentin, Requip Full code. Carb consistent cardiac diet. N.p.o. after midnight on for possible surgery on Saturday. Heparin drip will also help with DVT prophylaxis, foot pumps. Case management consultation for safe discharge planning. Attestations Medical Necessity Statement*: Admission for more than 2 midnights for management of fracture left femur, atrial fibrillation, congestive heart failure and type 2 diabetes mellitus. Time Spent in Patient Care: Greater than 35 minutes (>than 50% of time spent in counselling and/or direct pt care on unit) . Coding Level of Care Code Acute Carpenter Helper for g Fwd Diagnoses Fall W19.XXXA Fracture of femur S72.402A Encounter type: initial encounter Femur location: distal, unspecified portion Fracture morphology: unspecified fracture morphology Fracture type: closed Laterality: left Atrial fibrillation I48.20 Atrial fibrillation type: unspecified chronic Congestive heart failure I50.9 Heart failure type: unspecified Heart failure chronicity: chronic Hypertension I10 Hypertension type: essential hypertension Diabetes E11.65; Z79.4 Diabetes mellitus complication status: with hyperglycemia Diabetes mellitus alf insulin use: with adjunct faculty for medical terminology use Diabetes mellitus type: type 2 Anxiety F41.9 S/P total knee arthroplasty Z96.652 Laterality: left COVID-19 U07.1
[2020-04-06 18:50] LABS: INR 1.41 (0.8-1.2)
[2020-04-06 18:59] LABS: Alanine Aminotransferase 35 U/L (0-41); Albumin Level 3.4 g/dL (3.5-5.2); Alkaline Phosphatase 224 IU/L (40-130); Aspartate Amino Transferase 46 U/L (0-40); Blood Urea Nitrogen 9 mg/dL (6-20); Calcium 8.5 mg/dL (8.5-10.5); Carbon Dioxide 27 mmol/L (22-29); Chloride 99 mmol/L (98-107); Globulin 3.8 g/dL (1.3-4.6); Glomerular Filtration Rate 101.1 mL/min (90-130); Glucose 465 mg/dL (65-115); Osmolality Calculated 299 mOsm/kg (285-295); Sodium 135 mmol/L (136-145); Total Bilirubin 0.5 mg/dL (0.15-1.2); Total Protein 7.2 g/dL (6.6-8.7)
[2020-04-06 19:03] LABS: Slide Review Slide Review Perform
[2020-04-06] MEDS: cyclobenzaprine 10 mg Tablet PO (19:30)
[2020-04-06 19:31] LABS: Iron 31 ug/dL (59-158); NT Pro B Type Natriuretic Pept 87 pg/mL (0-125); Percent Saturation 10.9 % (20-50); Thyroid Stimulating Hormone 2.87 uIU/mL (0.27-4.20); Total Iron Binding Capacity 283 mcg/dl; Unsaturated Iron Binding 252 ug/dL (112-347)
[2020-04-06 19:34] LABS: Add Urine Microscopic? NO
[2020-04-06 20:08] LABS: Urine Appearance Clear (CLEAR); Urine Color Yellow (Yellow)
[2020-04-06 20:09] LABS: Bilirubin Urine Neg (Negative); Blood Urine Neg (Negative); Glucose Urine UA 4+ (Normal); Ketones Urine Negative (Negative); Leukocyte Esterase Urine Negative (Negative); Nitrate Urine Negative (Negative); Protein Urine Neg (Negative); Urobilinogen Urine Norm (Negative)
--- NOTE | 2020-04-06 22:15 | ECG_ITS ---
[facility] Test Date: 2020-04-07 Pat Name: Chun Webster Department: Room: 261 Gender: Male Kindergartner: : 1965 Requested By: Taqueria Garcia Order Number: [id number] [place] MD: Leann Valdez M.D. 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 [id number]
[2020-04-06] MEDS: ropinirole 1 mg Tablet PO (22:51)
[2020-04-06] MEDS: gabapentin 300 mg Capsule 600 MG PO (22:51)
[2020-04-06] MEDS: ARIPiprazole 10 mg Tablet 5 MG PO (22:51)
[2020-04-06] MEDS: carvedilol 6.25 mg Tablet PO (22:51)
[2020-04-06] MEDS: hyDROXYzine 25 mg Capsule PO (22:52)
[2020-04-06] MEDS: HYDROmorphone 1 mg/mL INJ 1 mL 2 MG IVP (22:52)
[2020-04-06 22:58] LABS: Platelet Count 119 10^3/cmm (130-400)
[2020-04-06 23:04] LABS: Partial Thromboplastin Time 30.2 SECONDS (23.9-36.7)
[2020-04-06 23:06] LABS: Glucose Point of Care 284 mg/dL (70-110)
[2020-04-07] VITALS (8 sets, daily range): BP systolic 113–148; BP diastolic 75–84; PULSE 74–105; RESP 18–20; TEMP 36.4–37.6; O2SAT 90–95
[2020-04-07] MEDS: heparin drip 25,000 UNIT/500 ML PREMIX 4800.8 UNIT IV (00:01)
[2020-04-07] MEDS: heparin 5,000 unit/mL INJ 1 mL IVP (00:04)
[2020-04-07] MEDS: insulin glargine 100 units/1 mL 55 UNIT SUBCUT ×2 (00:22→08:26)
[2020-04-07 05:29] LABS: Basophils # 0.1 10^3/uL (0.0-0.1); Basophils % 1.1 %; Eosinophils # 0.1 10^3/uL (0.0-0.8); Eosinophils % 0.8 %; Hematocrit 39.7 % (42.0-52.0); Hemoglobin 11.9 g/dL (11.7-16.6); Lymphocytes # 1.3 10^3/uL (0.8-4.8); Lymphocytes % 19.5 %; Mean Corpuscular Hemoglobin 25.3 pg (28.0-34.0); Mean Corpuscular Volume 84.5 fL (80-94); Mean Platelet Volume 12.8 fL (7.4-10.4); Monocytes # 0.6 10^3/uL (0.2-0.9); Monocytes % 9.8 %; Neutrophils % 68.5 %; Nucleated Red Blood Cells % 0 %; Platelet Count 115 10^3/cmm (130-400); Red Cell Distribution Width 16.7 % (12.1-15.1); White Blood Count 6.6 10^3/uL (4.0-10.0)
[2020-04-07 05:49] LABS: Alanine Aminotransferase 31 U/L (0-41); Albumin Level 3.3 g/dL (3.5-5.2); Alkaline Phosphatase 216 IU/L (40-130); Anion Gap 10.1 (5-19); Aspartate Amino Transferase 39 U/L (0-40); Blood Urea Nitrogen 12 mg/dL (6-20); Calcium 8.6 mg/dL (8.5-10.5); Carbon Dioxide 30 mmol/L (22-29); Chloride 100 mmol/L (98-107); Globulin 3.8 g/dL (1.3-4.6); Glomerular Filtration Rate 101.1 mL/min (90-130); Glucose 332 mg/dL (65-115); Magnesium 2.1 mg/dL (1.7-2.3); Osmolality Calculated 295 mOsm/kg (285-295); Phosphorus 4.2 mg/dL (2.5-4.5); Potassium 4.1 mmol/L (3.5-5.1); Sodium 136 mmol/L (136-145); Total Bilirubin 0.8 mg/dL (0.15-1.2); Total Protein 7.1 g/dL (6.6-8.7)
[2020-04-07 05:55] LABS: Partial Thromboplastin Time 82.9 SECONDS (23.9-36.7)
[2020-04-07 06:00] LABS: Estmated Average Glucose 220; Hemoglobin A1C 9.3 % (4.0-6.0)
[2020-04-07 06:40] LABS: Partial Thromboplastin Time 85.8 SECONDS (23.9-36.7)
[2020-04-07] MEDS: HYDROcodone-acetaminophen 5-325 mg Tablet 1 TAB PO ×3 (06:48→21:09)
[2020-04-07 08:00] LABS: Glucose Point of Care 222 mg/dL (70-110)
[2020-04-07] MEDS: sertraline 100 mg Tablet PO (08:27)
[2020-04-07] MEDS: gabapentin 300 mg Capsule 600 MG PO ×3 (08:27→21:08)
[2020-04-07] MEDS: multivitamin therapeutic Tablet 1 TAB PO (08:27)
[2020-04-07] MEDS: carvedilol 6.25 mg Tablet PO ×2 (08:27→21:08)
[2020-04-07] MEDS: spironolactone 25 mg Tablet PO (08:27)
[2020-04-07] MEDS: ropinirole 1 mg Tablet PO ×2 (08:27→21:08)
--- NOTE | 2020-04-07 08:27 | P.CONIM_ITS ---
Providers/Reason For Consult Consulting Physican/Specialty*: Amber Blunt MD - Orthopedics Reason for Consult*: Left distal femur periprosthetic supracondylar fracture Requesting Physcian: Dr. Jacob Attending Physician: Taqueria Garcia MD Primary Care Provider: Contreras Faustin DO History of Present Illness History of Present Illness Chun Webster JR is a 54 year old male who presented to the emergency department last evening. On January 05, 2020, the patient had a left total knee arthroplasty. Yesterday, while getting out of his car, he fell directly onto this left knee. The patient notes that the rocks were approximately 3 inches in diameter, and he merely lost his footing. He denies the leg giving way or other associated reason for his fall. He also denies being dizzy or having any other medical type issue. Prior to this fall, he was able to walk up to a mile. He does have multiple medical issues, and the following his total knee in December, he [facility] The patient was admitted to the medical service. He is chronically on Eliquis for atrial fibrillation and will require time prior to his surgical intervention. He denies having taken his Eliquis on yesterday, the day of admission. Review of Systems General: Reports: 10 or more systems reviewed and unremarkable except in HPI and below Const: Denies: fever(s), chills, body aches, change in appetite, change in weight, malaise, night sweats, diaphoresis, change in sleep pattern, daytime sleepiness or snoring Eyes: Denies: change in vision, blurry vision, photophobia, eye discomfort or eye discharge ENMT: Denies: throat pain, enlarged tonsils, hoarseness, mouth pain, oral sores, dental pain, dry mouth, tinnitus, nasal congestion or post nasal drip Card: Denies: chest pain, palpitations, irregular heart rhythm, edema, swelling of feet/ankles, lightheadedness, syncope, pre-syncope, dyspnea on exertion, orthopnea, leg pain with exertion or acrocyanosis Resp: Denies: dyspnea, productive cough, non-productive cough, wheezing, stridor, pain on inspiration, change in phlegm color, hemoptysis or chest congestion GI: Denies: abdominal pain, nausea, vomiting, hematemesis, coffee ground emesis, dysphagia, heartburn, diarrhea, constipation, bloating, GI cramping, change in bowel habits, pain on defecation, hematochezia or melena : Denies: flank pain, difficulty urinating, dysuria, urinary frequency, urinary urgency, urinary hesitancy, urinary dribbling, difficulty starting urination, change in urine stream, nocturia or hematuria Musc: Denies: neck pain, back pain, extremity pain, joint pain, joint swelling, joint redness, joint warmth, joint stiffness or limited range of motion Skin/Breast: Denies: rash Neuro: Denies: headache(s), numbness in extremities, weakness in extremities, sensory changes, lack of coordination, difficulty walking, frequent falls, dizziness, vertigo, confusion, Slurred speech present, difficulty communicating thoughts or seizure-like activity Psych: Denies: anxiety, depression, mood swings, panic attacks, hopelessness or irritability Endo: Denies: polyuria, polydipsia, tired all the time, cold intolerance, excessive sweating, flushing or heat intolerance Max/Lymph: Denies: easy bruising or easy bleeding All/Imm: Denies: urticaria, tongue swelling, facial swelling or acute wheezing Meds/Allergies Home Medications and Allergies Home Medications Medication Instructions Recorded Confirmed Last Taken Type multivitamin [Multiple Vitamins] 1 tab PO DAILY@05/27/19 04/06/20 04/05/20 History fluticasone propionate 2 spray INTRANASAL DAILY PRN 03/04/20 04/06/20 Unknown History amlodipine 10 mg PO DAILY@04/06/20 04/06/20 04/05/20 History apixaban [Eliquis] 5 mg PO BID@04/06/20 04/06/20 04/05/20 History aripiprazole 5 mg PO DAILY@04/06/20 04/06/20 04/05/20 History carvedilol 6.25 mg PO BID@04/06/20 04/06/20 04/05/20 History furosemide 40 mg PO BID@04/06/20 04/06/20 04/05/20 History gabapentin 600 mg PO TID@04/06/20 04/06/20 04/05/20 History hydroxyzine HCl 25 mg PO TID@04/06/20 04/06/20 04/05/20 History insulin glargine [Lantus Solostar 55 unit SUBCUT BID@04/06/20 04/06/20 04/06/20 History U-100 Insulin] ropinirole 1 mg PO BID@04/06/20 04/06/20 04/05/20 History sertraline 100 mg PO DAILY@04/06/20 04/06/20 04/05/20 History spironolactone 25 mg PO DAILY@04/06/20 04/06/20 04/05/20 History Allergies Allergy/AdvReac Type Severity Reaction Status Date / Time trazodone Allergy Unknown Verified 04/06/20 22:31 Current Medications Current Medications Generic Name Dose Route Start Last Admin Trade Name Freq PRN Reason Stop Dose Admin Hydrocodone Bitart/Acetaminophen 1 tab 04/06/20 22:15 04/07/20 06:48 Hydrocodone-Acetaminophen 5-325 Mg Tablet PO 1 tab Q4H PRN Administration MODERATE TO SEVERE PAIN Aripiprazole 5 mg 04/06/20 22:15 04/06/20 22:51 Aripiprazole 10 Mg Tablet PO 5 mg DAILY@ [place] Administration Carvedilol 6.25 mg 04/06/20 22:15 04/06/20 22:51 Carvedilol 6.25 Mg Tablet PO 6.25 mg BID@ [place] Administration Gabapentin 600 mg 04/06/20 22:15 04/06/20 22:51 Gabapentin 300 Mg Capsule PO 600 mg TID@ [place] Administration Heparin Sodium (Beef Lung) 0 unit 04/06/20 22:35 04/07/20 00:04 Heparin 5,000 Unit/Ml Inj 1 Ml IVP 7,000 unit PROTOCOL PRN Administration heparin drip protocol Protocol Hydroxyzine Pamoate 25 mg 04/06/20 22:15 04/06/20 22:52 Hydroxyzine 25 Mg Capsule PO 25 mg TID@ [place] Administration Heparin Sodium/Sodium Chloride 25,000 unit in 500 mls @ 0 mls/hr 04/06/20 22:15 04/07/20 00:01 Heparin Drip IV 1,800 unit/kg/hr .Q0M [place] 4,800.8 mls/hr Administration Protocol Per Protocol Insulin Aspart 0 unit 04/06/20 22:15 04/07/20 00:22 Insulin Aspart 100 Unit/1 Ml SUBCUT 10 unit WM&BEDTIME [place] Administration Protocol Insulin Glargine 55 unit 04/06/20 22:15 04/07/20 00:22 Insulin Glargine 100 Units/1 Ml SUBCUT 55 unit BID@ [place] Administration Ropinirole HCl 1 mg 04/06/20 22:15 04/06/20 22:51 Ropinirole 1 Mg Tablet PO 1 mg BID@ [place] Administration PFSH Acute PFSH: Medical History Angioedema Atrial fibrillation Congestive heart failure COVID-19 Diabetes Erectile dysfunction Hyperlipidemia Hypertension Neuropathy Psoriasis Restless leg syndrome Surgical History H/O knee surgery Hx of cardiac cath Family History Father Cancer Lung Mother Cancer Brain Other Diabetes Hypertension Social History Smoking and tobacco status: never smoked Alcohol intake: current Alcohol intake frequency: holidays/special occasions only Household members: friend(s) Housing: Apartment Vitals/I&O/Wt Last Vital Signs Temp 97.6 F 04/07/20 08:00 Pulse 82 04/07/20 08:00 Resp 20 H 04/07/20 08:00 BP 133/75 04/07/20 08:00 Pulse Ox 95 04/07/20 08:00 04/06/20 04/07/20 04/07/20 22:59 06:59 14:59 Intake Total 800 / 800 Output Total 325 / 325 Balance 475 / 475 Weight last 48 hrs Weight 303 lb 9.6 oz Weight 294 lb Physical Exam Const: COMMON NORMALS: no acute distress, average body habitus, patient oriented x3 and alert GENERAL APPEARANCE: cooperative and comfortable OR IENTATION/CONSCIOUSNESS: Yes awake HENMT: COMMON NORMALS: normocephalic and atraumatic HEAD & SCALP: normocephalic and atraumatic Eye: GENERAL EYE: appearance normal, both eyes and all related structures Chest: COMMONS NORMALS: normal inspection of the chest Resp: COMMON NORMALS: normal respiratory effort EFFORT & INSPECTION: Yes able to speak in complete sentences and Yes symmetric chest movement Extremity: LEFT LOWER EXTREMITY: Yes knee joint (There is a significant knee effusion.) Left knee: Yes inspection (There are abrasions anterior knee medial to the previous surgical incision), Yes palpation, Yes ROM (Not assessed secondary to fracture) and Yes neurovascular exam (Intact with no evidence of DVT) Neuro: COMMON NORMALS: patient oriented x3 SENSORIUM/ORIENTATION: Yes alert GAIT: Yes Unable to assess gait (Secondary to fracture) Psych: COMMON NORMALS: mental status grossly normal APPEARANCE: Yes grossly normal ATTITUDE: Yes calm and Yes engaged ATTENTION/CONCENTRATION: Yes attention grossly intact Skin: COMMON NORMALS: no rashes or lesions noted GENERAL SKIN EXAM: no rashes or lesions noted Data Micro: Micro: Microbiology 04/06/20 19:45 Blood Culture - Pr eliminary Blood SPECIMEN [facility] 04/06/20 19:25 Blood Culture - Pr eliminary Blood SPECIMEN [facility] Imaging^: Xray Ortho: I personally reviewed and interpreted this imaging study as follows: My impression: Patient had left knee imaging, and I have personally interpreted this. Imaging demonstrated a supracondylar periprosthetic fracture which extends into the area of the knee replacement. This is comminuted. There is shortening secondary to the fracture but no significant malalignment at this time. There is a large hemarthrosis. A&P Assessment and plan (1) Closed supracondylar fracture of femur: This gentleman is well-known to me following total knee arthroplasty in December of this year. The patient had a fall directly onto his total knee arthroplasty yesterday when he was unable to maintain footing in pile of 3 inch rocks. He was admitted through the emergency department with a periprosthetic supracondylar left femur fracture. He is on Eliquis chronically for atrial fibrillation, and although he did not take it on the day of admission, he will require at least 48 to 72 hours prior to proceeding with his surgical intervention. This is discussed with him as well as the planned procedure. The patient was admitted to the medical service secondary to multiple medical comorbidities. Surgery is planned for the afternoon of April 08 following medical evaluation and treatment. He understands the risks and complications of the surgery. These are discussed with him. Status: Acute (2) Anika-prosthetic fracture around prosthetic knee: Status: Acute Consult Attestations Medical Necessity Statement: Patient requires hospitalization prior to open reduction internal fixation of his left distal femur fracture which is periprosthetic and supracondylar. Secondary to Eliquis, he will require delay in surgical intervention. Coding Level of Care Code Acute Documentation Improvement Specialist for [facility] Diagnoses Closed supracondylar fracture of femur S72.453A Anika-prosthetic fracture around prosthetic knee M97.8XXA; Z96.659
[2020-04-07] MEDS: amlodipine 10 mg Tablet PO (08:28)
[2020-04-07] MEDS: hyDROXYzine 25 mg Capsule PO ×3 (08:28→21:08)
[2020-04-07] MEDS: famotidine 20 mg Tablet PO ×2 (08:28→17:10)
[2020-04-07] MEDS: FUROsemide 40 mg Tablet PO ×2 (08:28→17:10)
[2020-04-07 08:40] LABS: Add Urine Culture? No; Bacteria Urine TRACE /hpf; Bilirubin Urine 1+ (Negative); Blood Urine Neg (Negative); Glucose Urine UA 4+ (Normal); Ketones Urine 1+ (Negative); Leukocyte Esterase Urine Negative (Negative); Mucus Urine 2+ /hpf; Nitrate Urine Negative (Negative); Protein Urine Trace (Negative); Specific Gravity, Urine 1.025 (1.005-1.030); Urine Appearance Clear (CLEAR); Urine Color Dark Yellow (Yellow); Urobilinogen Urine 4 mg/dL (Negative); WBC Urine 0-4 /hpf (0-5)
--- NOTE | 2020-04-07 08:56 | PC.NURSE ---
called and informed out patient physical therapy at [facility] that patient is admitted in hospital and will not make it to appointment this morning.
[2020-04-07] MEDS: diazePAM 5 mg Tablet PO ×2 (10:02→22:34)
--- NOTE | 2020-04-07 10:50 | PC.CHAP ---
Pastoral Care Encounter/Spiritual Assessment Type of Contact [] Declined electric utility lineworker visit [] Patient/Family/Request visit [] Outpatient visit [] Follow-up visit [] Physician referral [] Code/Alert [] Routine visit [] Staff referral [] Actively dying [] Patient sleeping [] Family support [] [] Out of room [] Palliative care [] [] Receiving care in room [] Pre-surgical visit [] Trauma [] Long length of stay [] ICU visit [X] Other: Isolation Relational/Emotional Strength [] Patient feels connected with others/family/visitors/staff [] Distress [] Loneliness/isolation [] Abandonment Spirituality of Patient [] Person of Sara [] Attends Lutheran of their Sara [] Believes in Prayer [] Reads Bible or Yarsanism materials [] There are Spiritual issues to be addressed Vp Transportation Interventions [] Prayer [] Active listening [] Non-anxious presence [] Spiritual/emotional support [] Crisis/trauma care [] Spiritual counseling [] Bereavement support [] Provided bereavement packet [] Provided Bible/devotional materials [] Provided toy/stuffed animal, coloring book to patient or family member [] Provided Communion [] Anointing/[place] [] Salvation [] Completed spiritual assessment [] Other: Impact on Illness or Injury [] Angry [] Fearful [] Anxious [] Often cries [] Exhaustion [] Unable to work [] Unable to attend amish [] Unable to walk/stand [] Unable to read [] Unable to drive [] Unable to eat/drink [] Unable to sleep [] Unable to be with family [] Patient intubated [] Other: Summary Isolation Time spent with patient 5 mins
[2020-04-07 10:51] LABS: Glucose Point of Care 254 mg/dL (70-110)
[2020-04-07 11:50] LABS: Glucose Point of Care 311 mg/dL (70-110)
[2020-04-07 14:00] LABS: Partial Thromboplastin Time 60.3 SECONDS (23.9-36.7)
[2020-04-07] MEDS: heparin drip 25,000 UNIT/500 ML PREMIX 31 UNIT IV (14:49)
--- NOTE | 2020-04-07 16:48 | PC.NURSE ---
Patient tolerating traction well, reports less muscle spasms with Alford's Traction in place. Call light in reach, side rails up x2.
[2020-04-07 16:59] LABS: Glucose Point of Care 399 mg/dL (70-110)
--- NOTE | 2020-04-07 18:13 | PM.PN ---
Subjective Subjective: Interval history: Documents overnight. Patient has remained comfortable. States pain is well controlled. Denies any nausea, vomiting, headache. Plan for the OR tomorrow. N.p.o. after midnight. Has remained stable on heparin drip. Vitals/I&O/Wt Last Vital Signs Temp 98.7 F 04/07/20 15:24 Pulse 84 04/07/20 15:24 Resp 18 04/07/20 15:24 BP 130/78 04/07/20 15:24 Pulse Ox 90 04/07/20 15:24 04/07/20 04/07/20 04/07/20 06:59 14:59 22:59 Intake Total 1300 / 1300 720 / 720 240 / 960 Output Total 325 / 325 400 / 400 Balance 975 / 975 320 / 320 240 / 560 Weight last 48 hrs Weight 137.711 kg Weight 133.356 kg Physical Exam Narrative: EXAM NARRATIVE: General: No acute distress, AO x3 HEENT: PERRLA, pupils bilaterally equal and reactive Chest: Normal vesicular breath sounds, no added sounds, equal good air entry bilaterally CVS: S1-S2 irregularly irregular , no murmurs, no tachycardia, no gallops, no rubs Abdomen: Soft, nontender, no organomegaly, bowel sounds present Neuro: No focal deficits, no facial deformity, AO x3, power 5/5 in all limbs Extremities: Peripheral pulses bilaterally palpable, left leg rotated externally with bruise present on the knee, able to wiggle both toes bilaterally. Data : 04/07/20 05:08 04/07/20 05:08 Micro: Microbiology 04/06/20 19:45 Blood Culture - Preliminary Blood SPECIMEN COLLECTED 04/06/20 19:25 Blood Culture - Preliminary Blood SPECIMEN COLLECTED A&P Assessment and plan (1) Fall: Status: Acute (2) Fracture of femur: Status: Acute Qualifiers: Encounter type: initial encounter Femur location: distal, unspecified portion Fracture morphology: unspecified fracture morphology Fracture type: closed Laterality: left Qualified Code(s): S72.402A - Unspecified fracture of lower end of left femur, initial encounter for closed fracture (3) Atrial fibrillation: Status: Acute Qualifiers: Atrial fibrillation type: unspecified chronic Qualified Code(s): I48.20 - Chronic atrial fibrillation, unspecified (4) Congestive heart failure: Status: Acute Qualifiers: Heart failure type: unspecified Heart failure chronicity: chronic Qualified Code(s): I50.9 - Heart failure, unspecified (5) Hypertension: Status: Acute Qualifiers: Hypertension type: essential hypertension Qualified Code(s): I10 - Essential (primary) hypertension (6) Diabetes: Status: Acute Qualifiers: Diabetes mellitus complication status: with hyperglycemia Diabetes mellitus intermediate accountant insulin use: with intermediate accountant use Diabetes mellitus type: type 2 Qualified Code(s): E11.65 - Type 2 diabetes mellitus with hyperglycemia; 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 Fall: Mechanical as he twisted his ankles while walking on the rocks. Fracture femur: Left. Dr. Blunt has been consulted from the ER. Plan for OR tomorrow. Perioperative antibiotics, anticoagulation, physical therapy as per Dr. Blunt. [place] 5 1 tab every 6 hours as needed for pain. Atrial fibrillation: Rate controlled at present. Continue home dose of carvedilol. Telemetry monitoring. Hold Eliquis as patient will be going to the OR on Saturday. Continue heparin drip while monitoring hemoglobin. Congestive heart failure: Euvolemic at present. Patient takes forsemide 40 mg twice daily, spironolactone 25 mg daily at home. For now start on Lasix 40 mg daily, spironolactone 25 mg daily. Last echocardiogram from April 2019 shows an EF 55% with grade 2 diastolic dysfunction with mildly dilated LA. Hypertension: Known goal blood pressure less than 140/90 Hg. For now continue with home dose of amlodipine. We will continue to monitor blood pressures. Type 2 diabetes mellitus: Continue with home dose of Lantus 55 units twice daily. Start on insulin sliding scale moderate dose protocol. Check HbA1c. COVID-19: Tested positive in December. Has finished his quarantine. Asymptomatic at present. Chest x-ray. COVID-19 PCR has been sent from the ER. For now isolation precautions. Anxiety: Continue with home dose of and baseline, Zoloft. Continue other chronic medication like hydroxyzine, gabapentin, Requip Full code. Carb consistent cardiac diet. N.p.o. after midnight on for possible surgery on Saturday. Heparin drip will also help with DVT prophylaxis, foot pumps. Case management consultation for safe discharge planning. Plan for the day: Continue with heparin drip as anticoagulation for atrial fibrillation, pain medication, other chronic medication for high blood pressure and congestive heart failure while patient awaits for or tomorrow. Have dose of Lantus tonight as patient will be n.p.o. after midnight. Attestations Medical Necessity Statement*: Patient requires further hospitalization for management of left fractured femur. Time Spent in Patient Care: Greater than 35 minutes (>than 50% of time spent in counselling and/or direct pt care on unit). Coding Level of Care Code Acute Manager Digital Ad Operations for [facility] Fwd Diagnoses Fall W19.XXXA Fracture of femur S72.402A Encounter type: initial encounter Femur location: distal, unspecified portion Fracture morphology: unspecified fracture morphology Fracture type: closed Laterality: left Atrial fibrillation I48.20 Atrial fibrillation type: unspecified chronic Congestive heart failure I50.9 Heart failure type: unspecified Heart failure chronicity: chronic Hypertension I10 Hypertension type: essential hypertension Diabetes E11.65; Z79.4 Diabetes mellitus complication status: with hyperglycemia Diabetes mellitus intermediate accountant insulin use: with intermediate accountant use Diabetes mellitus type: type 2 Anxiety F41.9 S/P total knee arthroplasty Z96.652 Laterality: left COVID-19 U07.1
[2020-04-07 18:17] LABS: Coronavirus Lab Test PTC Negative
[2020-04-07] MEDS: ARIPiprazole 10 mg Tablet 5 MG PO (21:08)
[2020-04-07 21:35] LABS: Glucose Point of Care 346 mg/dL (70-110)
[2020-04-07 21:46] LABS: Partial Thromboplastin Time 59.4 SECONDS (23.9-36.7)
[2020-04-08] VITALS (16 sets, daily range): BP systolic 105–134; BP diastolic 56–79; PULSE 60–85; RESP 16–20; TEMP 35.9–37.1; O2SAT 93–98
--- NOTE | 2020-04-08 | SCC_ITS ---
Procedure Done: Open reduction internal fixation left supracondylar and intercondylar periprosthetic distal femur fracture 201.8 seconds of fluoroscopic guidance, for a cumulative dose of 19.19 mGy, was provided to Dr. Blunt by the radiology department. C-arm images of the LEFT knee were saved for the patient's permanent record. [facility]
--- NOTE | 2020-04-08 | XR_ITS ---
WS: [id number] XR knee LT 1-2V 60013 REASON FOR EXAM: ORIF LT KNEE FINDINGS: Long plate and screw fixation of left supracondylar fracture in a knee that had previous total arthro plasty. Plate and screw appliance in the arthroplasty components in the bony fragments appear to be p roperly positioned and aligned. XR/[place] [address] IMPRESSION: Internal fixation of supracondylar fracture involving total left knee arthropla sty.
[2020-04-08 05:34] LABS: Partial Thromboplastin Time 58.9 SECONDS (23.9-36.7)
[2020-04-08 07:01] LABS: Glucose Point of Care 174 mg/dL (70-110)
[2020-04-08] MEDS: HYDROcodone-acetaminophen 5-325 mg Tablet 1 TAB PO ×2 (09:12→15:54)
[2020-04-08] MEDS: amlodipine 10 mg Tablet PO (09:14)
[2020-04-08] MEDS: FUROsemide 40 mg Tablet PO ×2 (09:14→17:21)
[2020-04-08] MEDS: carvedilol 6.25 mg Tablet PO ×2 (09:14→22:18)
[2020-04-08] MEDS: gabapentin 300 mg Capsule 600 MG PO ×2 (09:15→22:19)
[2020-04-08] MEDS: sertraline 100 mg Tablet PO (09:15)
[2020-04-08] MEDS: spironolactone 25 mg Tablet PO (09:15)
[2020-04-08] MEDS: ropinirole 1 mg Tablet PO ×2 (09:15→22:20)
[2020-04-08] MEDS: hyDROXYzine 25 mg Capsule PO ×2 (09:15→22:19)
[2020-04-08] MEDS: multivitamin therapeutic Tablet 1 TAB PO (09:15)
[2020-04-08 10:32] LABS: Basophils # 0.1 10^3/uL (0.0-0.1); Basophils % 0.9 %; Eosinophils # 0.2 10^3/uL (0.0-0.8); Eosinophils % 3.8 %; Hematocrit 34.3 % (42.0-52.0); Hemoglobin 10.5 g/dL (11.7-16.6); Lymphocytes # 1.2 10^3/uL (0.8-4.8); Lymphocytes % 21.5 %; Mean Corpuscular HGB Conc 30.6 g/dL (30.0-36.0); Mean Corpuscular Hemoglobin 25.5 pg (28.0-34.0); Mean Corpuscular Volume 83.5 fL (80-94); Mean Platelet Volume 12.9 fL (7.4-10.4); Monocytes # 0.5 10^3/uL (0.2-0.9); Monocytes % 9.2 %; Neutrophils # 3.72 10^3/uL (1.8-7.7); Neutrophils % 64.3 %; Nucleated Red Blood Cells % 0 %; Platelet Count 90 10^3/cmm (130-400); Red Blood Count 4.11 10^6/uL (4.1-5.3); Red Cell Distribution Width 16.4 % (12.1-15.1); White Blood Count 5.8 10^3/uL (4.0-10.0)
--- NOTE | 2020-04-08 10:50 | P.ANESASSM_ITS ---
Pre-Anesthetic Assessment Pre-Anesthetic Assessment: Height/Weight: Height 1.91 m Weight 137.711 kg Temp Pulse Resp BP Pulse Ox 98.7 F 82 18 121/79 94 04/08/20 07:41 04/08/20 07:41 04/08/20 07:41 04/08/20 07:41 04/08/20 07:41 Preop Diagnosis: Periprosthetic right distal femur fracture Proposed Procedure: Operation Date: 04/08/20 10:25 Proposed Procedures p ORIF distal femur/supracondylar a(Left) - Amber Blunt MD Familial anesthetic complications: None Was Beta Capo taken within 24 hours: N/A Last intake: NPO > 8 hrs Social: Social History: No alcohol and No tobacco Exam: Pre-Anes Outpt Exam: alert, oriented x 3, clear to auscultation bilaterally and regular rate & rhythm Airway: Cervical ROM: WNL MP: 3 Dentition: Full Pulmonary: Comments: COVID 19 in december no symptoms currently CV/HEM: CV/HEM: Afib, CHF and HTN Comments: echo showed EF 55%, no eliquis since saturday Metabolic: Metabolic: DM Anesthetic Plan: ASA status: 3 Risk of > 500 ml blood loss (7ml/kg in children): No Meds/Allergies Current Medications: Current Medications Generic Name Dose Route Start Last Admin Trade Name Freq PRN Reason Stop Dose Admin Hydrocodone Bitart /Acetaminophen 1 tab 04/06/20 22:15 04/08/20 09:12 Hydrocodone-Acet aminophen 5-325 Mg Tablet PO 1 tab Q4H PRN Administration MODERATE TO SEVER E PAIN Amlodipine Besylat e 10 mg 04/07/20 09:00 04/08/20 09:14 Amlodipine 10 Mg Tablet PO 10 mg DAILY@09 [place] Administration Aripiprazole 5 mg 04/06/20 22:15 04/07/20 21:08 Aripiprazole 10 Mg Tablet PO 5 mg DAILY@ [place] Administration Carvedilol 6.25 mg 04/06/20 22:15 04/08/20 09:14 Carvedilol 6.25 Mg Tablet PO 6.25 mg BID@,22 [place] Administration Diazepam 5 mg 04/07/20 08:29 04/07/20 22:34 Diazepam 5 Mg Ta blet PO 5 mg Q8H PRN Administration ANXIETY Famotidine 20 mg 04/07/20 09:00 04/07/20 17:10 Famotidine 20 Mg Tablet PO 20 mg BID [place] Administration Furosemide 40 mg 04/07/20 18:00 04/08/20 09:14 Furosemide 40 Mg Tablet PO 40 mg BID [place] Administration Gabapentin 600 mg 04/06/20 22:15 04/08/20 09:15 Gabapentin 300 M g Capsule PO 600 mg TID@ [place] Administration Heparin Sodium (Be ef Lung) 0 unit 04/06/20 22:35 04/07/20 00:04 Heparin 5,000 Un it/Ml Inj 1 Ml IVP 7,000 unit PROTOCOL PRN Administration heparin drip prot ocol Protocol Hydroxyzine Pamoat e 25 mg 04/06/20 22:15 04/08/20 09:15 Hydroxyzine 25 M g Capsule PO 25 mg TID@ [place] Administration Heparin Sodium/Sod ium Chloride 25,000 unit in 50 0 mls @ 0 mls/hr 04/06/20 22:15 04/07/20 14:49 Heparin Drip IV 11.62 unit/kg/hr .Q0M [place] 31 mls/hr Administration Protocol Per Protocol Insulin Aspart 0 unit 04/06/20 22:15 04/08/20 09:13 Insulin Aspart 1 00 Unit/1 Ml SUBCUT 4 unit WM&BEDTIME [place] Administration Protocol Insulin Glargine 55 unit 04/06/20 22:15 04/07/20 08:26 Insulin Glargine 100 Units/1 Ml SUBCUT 55 unit BID@ [place] Administration Multivitamins Ther apeutic 1 tab 04/07/20 09:00 04/08/20 09:15 Multivitamin The rapeutic Tablet PO 1 tab DAILY@09 [place] Administration Ropinirole HCl 1 mg 04/06/20 22:15 04/08/20 09:15 Ropinirole 1 Mg Tablet PO 1 mg BID@ [place] Administration Sertraline HCl 100 mg 04/07/20 09:00 04/08/20 09:15 Sertraline 100 M g Tablet PO 100 mg DAILY@09 [place] Administration Spironolactone 25 mg 04/07/20 09:00 04/08/20 09:15 Spironolactone 2 5 Mg Tablet PO 25 mg DAILY@09 [place] Administration PFSH Anesthesia PFSH: Medical History Angioedema Atrial fibrillation Congestive heart failure COVID-19 Diabetes Erectile dysfunction Hyperlipidemia Hypertension Neuropathy Psoriasis Restless leg syndrome Surgical History H/O knee surgery Hx of cardiac cath Family History Father Cancer Lung Mother Cancer Brain Other Diabetes Hypertension Social History Smoking and tobacco status: never smoked Alcohol intake: current Alcohol intake frequency: holidays/special occasions only Household members: friend(s) Housing: Apartment Data Anesthesia CBC & Chem 7: 04/07/20 05:08 04/07/20 05:08 Other Labs: Laboratory Results - last 48 hr 04/06/20 04/06/20 04/06/20 18:01 18:01 18:01 WBC 5.9 RBC 4.79 Hgb 12.1 Hct 39.5 L MCV 82.5 MCH 25.3 L MCHC 30.6 RDW 16.7 H Plt Count 116 L MPV 11.8 H Neut % (Auto) 74.8 Lymph % (Auto) 15.4 [place] % (Auto) 7.0 Eos % (Auto) 1.4 Baso % (Auto) 0.9 Neut # (Auto) 4.38 Lymph # (Auto) 0.9 [place] # (Auto) 0.4 Eos # (Auto) 0.1 Baso # (Auto) 0.1 Nucleated RBC % (auto) 0 Nucleated RBCs # 0.0 PT 17.70 H INR 1.41 H APTT Sodium 135 L Potassium 4.0 Chloride 99 Carbon Dioxide 27 Anion Gap 13.0 BUN 9 Creatinine 0.8 GFR Calculation 101.1 Glucose 465 H POC Glucose Estimat Average Glucose Hemoglobin A1c Calculated Osmolality 299 H Calcium 8.5 Phosphorus Magnesium Iron TIBC % Saturation Unsat Iron Binding Total Bilirubin 0.5 AST 46 H ALT 35 Alkaline Phosphatase 224 H NT-Pro-B Natriuret Pep Total Protein 7.2 Albumin 3.4 L Globulin 3.8 TSH Urine Color Urine Appearance Urine pH Ur Specific [place] Urine Protein Urine Glucose (UA) Urine Ketones Urine Blood Urine Nitrate Urine Bilirubin Urine Urobilinogen Ur Leukocyte Esterase Urine RBC Urine WBC Ur Squamous Epith Cells Amorphous Sediment Urine Bacteria Urine Mucus Nasal/Oral COVID-19 PCR 04/06/20 04/06/20 04/06/20 18:01 18:01 18:01 WBC RBC Hgb Hct MCV MCH MCHC RDW Plt Count MPV Neut % (Auto) Lymph % (Auto) [place] % (Auto) Eos % (Auto) Baso % (Auto) Neut # (Auto) Lymph # (Auto) [place] # (Auto) Eos # (Auto) Baso # (Auto) Nucleated RBC % (auto) Nucleated RBCs # PT INR APTT Sodium Potassium Chloride Carbon Dioxide Anion Gap BUN Creatinine GFR Calculation Glucose POC Glucose Estimat Average Glucose Hemoglobin A1c Calculated Osmolality Calcium Phosphorus Magnesium Iron 31 L TIBC 283 % Saturation 10.9 L Unsat Iron Binding 252 Total Bilirubin AST ALT Alkaline Phosphatase NT-Pro-B Natriuret Pep 87 Total Protein Albumin Globulin TSH 2.87 Urine Color Urine Appearance Urine pH Ur Specific [place] Urine Protein Urine Glucose (UA) Urine Ketones Urine Blood Urine Nitrate Urine Bilirubin Urine Urobilinogen Ur Leukocyte Esterase Urine RBC Urine WBC Ur Squamous Epith Cells Amorphous Sediment Urine Bacteria Urine Mucus Nasal/Oral COVID-19 PCR Negative 04/06/20 04/06/20 04/06/20 19:25 22:43 22:43 WBC RBC Hgb Hct MCV MCH MCHC RDW Plt Count 119 L MPV Neut % (Auto) Lymph % (Auto) [place] % (Auto) Eos % (Auto) Baso % (Auto) Neut # (Auto) Lymph # (Auto) [place] # (Auto) Eos # (Auto) Baso # (Auto) Nucleated RBC % (auto) Nucleated RBCs # PT INR APTT 30.2 Sodium Potassium Chloride Carbon Dioxide Anion Gap BUN Creatinine GFR Calculation Glucose POC Glucose Estimat Average Glucose Hemoglobin A1c Calculated Osmolality Calcium Phosphorus Magnesium Iron TIBC % Saturation Unsat Iron Binding Total Bilirubin AST ALT Alkaline Phosphatase NT-Pro-B Natriuret Pep Total Protein Albumin Globulin TSH Urine Color Yellow Urine Appearance Clear Urine pH 5.0 Ur Specific [place] 1.010 Urine Protein Neg Urine Glucose (UA) 4+ H Urine Ketones Negative Urine Blood Neg Urine Nitrate Negative Urine Bilirubin Neg Urine Urobilinogen Norm Ur Leukocyte Esterase Negative Urine RBC Urine WBC Ur Squamous Epith Cells Amorphous Sediment Urine Bacteria Urine Mucus Nasal/Oral COVID-19 PCR 04/06/20 04/07/2020 23:03 05:08 05:08 WBC 6.6 RBC 4.70 Hgb 11.9 Hct 39.7 L MCV 84.5 MCH 25.3 L MCHC 30.0 RDW 16.7 H Plt Count 115 L MPV 12.8 H Neut % (Auto) 68.5 Lymph % (Auto) 19.5 [place] % (Auto) 9.8 Eos % (Auto) 0.8 Baso % (Auto) 1.1 Neut # (Auto) 4.50 Lymph # (Auto) 1.3 [place] # (Auto) 0.6 Eos # (Auto) 0.1 Baso # (Auto) 0.1 Nucleated RBC % (auto) 0 Nucleated RBCs # 0.0 PT INR APTT 82.9 H D Sodium Potassium Chloride Carbon Dioxide Anion Gap BUN Creatinine GFR Calculation Glucose POC Glucose 284 Estimat Average Glucose Hemoglobin A1c Calculated Osmolality Calcium Phosphorus Magnesium Iron TIBC % Saturation Unsat Iron Binding Total Bilirubin AST ALT Alkaline Phosphatase NT-Pro-B Natriuret Pep Total Protein Albumin Globulin TSH Urine Color Urine Appearance Urine pH Ur Specific [place] Urine Protein Urine Glucose (UA) Urine Ketones Urine Blood Urine Nitrate Urine Bilirubin Urine Urobilinogen Ur Leukocyte Esterase Urine RBC Urine WBC Ur Squamous Epith Cells Amorphous Sediment Urine Bacteria Urine Mucus Nasal/Oral COVID-19 PCR 04/07/20 04/07/20 04/07/20 05:08 05:08 06:05 WBC RBC Hgb Hct MCV MCH MCHC RDW Plt Count MPV Neut % (Auto) Lymph % (Auto) [place] % (Auto) Eos % (Auto) Baso % (Auto) Neut # (Auto) Lymph # (Auto) [place] # (Auto) Eos # (Auto) Baso # (Auto) Nucleated RBC % (auto) Nucleated RBCs # PT INR APTT 85.8 H Sodium 136 Potassium 4.1 Chloride 100 Carbon Dioxide 30 H Anion Gap 10.1 BUN 12 Creatinine 0.8 GFR Calculation 101.1 Glucose 332 H POC Glucose Estimat Average Glucose 220 Hemoglobin A1c 9.3 H Calculated Osmolality 295 Calcium 8.6 Phosphorus 4.2 Magnesium 2.1 Iron TIBC % Saturation Unsat Iron Binding Total Bilirubin 0.8 AST 39 ALT 31 Alkaline Phosphatase 216 H NT-Pro-B Natriuret Pep Total Protein 7.1 Albumin 3.3 L Globulin 3.8 TSH Urine Color Urine Appearance Urine pH Ur Specific [place] Urine Protein Urine Glucose (UA) Urine Ketones Urine Blood Urine Nitrate Urine Bilirubin Urine Urobilinogen Ur Leukocyte Esterase Urine RBC Urine WBC Ur Squamous Epith Cells Amorphous Sediment Urine Bacteria Urine Mucus Nasal/Oral COVID-19 PCR 04/07/20 04/07/20 04/07/20 06:55 07:49 10:48 WBC RBC Hgb Hct MCV MCH MCHC RDW Plt Count MPV Neut % (Auto) Lymph % (Auto) [place] % (Auto) Eos % (Auto) Baso % (Auto) Neut # (Auto) Lymph # (Auto) [place] # (Auto) Eos # (Auto) Baso # (Auto) Nucleated RBC % (auto) Nucleated RBCs # PT INR APTT Sodium Potassium Chloride Carbon Dioxide Anion Gap BUN Creatinine GFR Calculation Glucose POC Glucose 222 254 Estimat Average Glucose Hemoglobin A1c Calculated Osmolality Calcium Phosphorus Magnesium Iron TIBC % Saturation Unsat Iron Binding Total Bilirubin AST ALT Alkaline Phosphatase NT-Pro-B Natriuret Pep Total Protein Albumin Globulin TSH Urine Color Dark yellow Urine Appearance Clear Urine pH 5.0 Ur Specific [place] 1.025 Urine Protein Trace Urine Glucose (UA) 4+ H Urine Ketones 1+ H Urine Blood Neg Urine Nitrate Negative Urine Bilirubin 1+ H Urine Urobilinogen 4 H Ur Leukocyte Esterase Negative Urine RBC None Urine WBC 0-4 H Ur Squamous Epith Cells 5-10 H Amorphous Sediment Not Reportable Urine Bacteria Trace Urine Mucus 2+ Nasal/Oral COVID-19 PCR 04/07/20 04/07/20 04/07/20 11:17 13:30 16:37 WBC RBC Hgb Hct MCV MCH MCHC RDW Plt Count MPV Neut % (Auto) Lymph % (Auto) [place] % (Auto) Eos % (Auto) Baso % (Auto) Neut # (Auto) Lymph # (Auto) [place] # (Auto) Eos # (Auto) Baso # (Auto) Nucleated RBC % (auto) Nucleated RBCs # PT INR APTT 60.3 H Sodium Potassium Chloride Carbon Dioxide Anion Gap BUN Creatinine GFR Calculation Glucose POC Glucose 311 399 Estimat Average Glucose Hemoglobin A1c Calculated Osmolality Calcium Phosphorus Magnesium Iron TIBC % Saturation Unsat Iron Binding Total Bilirubin AST ALT Alkaline Phosphatase NT-Pro-B Natriuret Pep Total Protein Albumin Globulin TSH Urine Color Urine Appearance Urine pH Ur Specific [place] Urine Protein Urine Glucose (UA) Urine Ketones Urine Blood Urine Nitrate Urine Bilirubin Urine Urobilinogen Ur Leukocyte Esterase Urine RBC Urine WBC Ur Squamous Epith Cells Amorphous Sediment Urine Bacteria Urine Mucus Nasal/Oral COVID-19 PCR 04/07/20 04/07/20 04/08/20 21:16 21:31 04:04 WBC RBC Hgb Hct MCV MCH MCHC RDW Plt Count Cancelled MPV Neut % (Auto) Lymph % (Auto) [place] % (Auto) Eos % (Auto) Baso % (Auto) Neut # (Auto) Lymph # (Auto) [place] # (Auto) Eos # (Auto) Baso # (Auto) Nucleated RBC % (auto) Nucleated RBCs # PT INR APTT 59.4 H Sodium Potassium Chloride Carbon Dioxide Anion Gap BUN Creatinine GFR Calculation Glucose POC Glucose 346 Estimat Average Glucose Hemoglobin A1c Calculated Osmolality Calcium Phosphorus Magnesium Iron TIBC % Saturation Unsat Iron Binding Total Bilirubin AST ALT Alkaline Phosphatase NT-Pro-B Natriuret Pep Total Protein Albumin Globulin TSH Urine Color Urine Appearance Urine pH Ur Specific [place] Urine Protein Urine Glucose (UA) Urine Ketones Urine Blood Urine Nitrate Urine Bilirubin Urine Urobilinogen Ur Leukocyte Esterase Urine RBC Urine WBC Ur Squamous Epith Cells Amorphous Sediment Urine Bacteria Urine Mucus Nasal/Oral COVID-19 PCR 04/08/20 04/08/20 04/08/20 04:04 06:54 10:00 WBC RBC Hgb Hct MCV MCH MCHC RDW Plt Count MPV Neut % (Auto) Lymph % (Auto) [place] % (Auto) Eos % (Auto) Baso % (Auto) Neut # (Auto) Lymph # (Auto) [place] # (Auto) Eos # (Auto) Baso # (Auto) Nucleated RBC % (auto) Nucleated RBCs # PT INR APTT 58.9 H 51.0 H Sodium Potassium Chloride Carbon Dioxide Anion Gap BUN Creatinine GFR Calculation Glucose POC Glucose 174 Estimat Average Glucose Hemoglobin A1c Calculated Osmolality Calcium Phosphorus Magnesium Iron TIBC % Saturation Unsat Iron Binding Total Bilirubin AST ALT Alkaline Phosphatase NT-Pro-B Natriuret Pep Total Protein Albumin Globulin TSH Urine Color Urine Appearance Urine pH Ur Specific [place] Urine Protein Urine Glucose (UA) Urine Ketones Urine Blood Urine Nitrate Urine Bilirubin Urine Urobilinogen Ur Leukocyte Esterase Urine RBC Urine WBC Ur Squamous Epith Cells Amorphous Sediment Urine Bacteria Urine Mucus Nasal/Oral COVID-19 PCR Micro: Microbiology 04/06/20 19:45 Blood Culture - Preliminary Blood NEGATIVE TO DATE 04/06/20 19:25 Blood Culture - Preliminary Blood NEGATIVE TO DATE Cardiac Studies: No Data to Display
[2020-04-08 10:53] LABS: Slide Review Slide Review Perform
--- NOTE | 2020-04-08 10:54 | ANES.PROC ---
Anesthesia Procedures Procedure/Date: 04/08/20 Nerve Block ^: Nerve Block 1: Main Anesthesia: general anesthesia Time Out Performed: Yes Consent: requested by attending/covering physician, from patient, risks and benefits reviewed and patient agrees to proceed Nerve block location: femoral (L) Anesthesia monitors applied: pulse oximetry, EKG, BP cuff and oxygen Nerve block position: supine Anesthetic Used: ropivicaine 0.5% and with decadron (4 mg) Amount of anesthesia used (mL): 30 Ultrasound used to: recognize landmarks Nerve Stimulator Used?: No Interscalene/Femoral BLK: 4 stimuplex 21 g needle used for position and inplane approach, visualize local anesthetic spread and no vascular puncture identified Injection: neg aspiration of heme and paresthesia +/- Patient Tolerated Procedure: well Complications: none
[2020-04-08 10:59] LABS: Alanine Aminotransferase 21 U/L (0-41); Alkaline Phosphatase 173 IU/L (40-130); Aspartate Amino Transferase 26 U/L (0-40); Blood Urea Nitrogen 13 mg/dL (6-20); Carbon Dioxide 28 mmol/L (22-29); Chloride 98 mmol/L (98-107); Globulin 3.4 g/dL (1.3-4.6); Glucose 172 mg/dL (65-115); Osmolality Calculated 280 mOsm/kg (285-295); Sodium 133 mmol/L (136-145); Total Bilirubin 0.9 mg/dL (0.15-1.2); Total Protein 6.4 g/dL (6.6-8.7)
[2020-04-08] MEDS: sodium chloride 0.9% 1,000 ML 30 ML IV (11:14)
[2020-04-08] MEDS: vancomycin 1,500 MG/300 ML PIGGYBACK 200 MG IV (11:15)
[2020-04-08] MEDS: CELEcoxib 200 mg Capsule 400 MG PO (11:15)
--- NOTE | 2020-04-08 11:24 | W.PM.OPSUD ---
Surgery/Procedure H&P Update DATE OF PROCEDURE: April 08, 2020 DATE H&P PERFORMED: 04/07/20 H&P UPDATE INFORMATION: I have reviewed H&P completed within last 30 days, I have examined patient prior to procedure, No changes to prior documentation and H&P is in [facility] [place] on date indicated PREOP DIAGNOSIS: Periprosthetic right distal femur fracture PLANNED PROCEDURE: Operation Date: 04/08/20 10:25 Proposed Procedures p ORIF distal femur/supracondylar a(Left) - Amber Blunt MD Related Problem List Diagnoses (1) Closed supracondylar fracture of femur: (2) Anika-prosthetic fracture around prosthetic knee:
[2020-04-08] MEDS: ceFAZolin 1,000 mg SDV 1000 MG IRRIGATION (13:25)
[2020-04-08] MEDS: vancomycin 1,000 MG SDV 1000 MG XX (13:30)
[2020-04-08 14:07] LABS: Glucose Point of Care 194 mg/dL (70-110)
--- NOTE | 2020-04-08 14:41 | P.OP_ITS ---
Operative Report Date of procedure: April 08, 2020 Pre-op Diagnosis: Periprosthetic left comminuted supracondylar and intercondylar distal femu Post-op diagnosis: same Post-op Findings: Severe comminution and deformity of the distal supracondylar femur Procedure Done: Open reduction internal fixation left supracondylar and intercondylar periprosthetic distal femur fracture Implants: Aman left 8 hole lateral supracondylar femoral plate Specimens removed/disposition: None Pathology: none sent Surgeon: Amber Blunt [employer] Operations Vice President: C OR technicians Anesthesia: General (Intubated with preoperative regional block) Estimated blood loss (mL): 200 Tourniquet time (min): 104 Tourniquet time: At 275 mmHg IV fluids (mL): 1,600 Urine output (mL): 500 Complications: None Findings: Severe comminution of the distal femur with deformity and impaction of the fracture fragments. Condition: stable Disposition: PACU (Then return to floor for postoperative pain management and rehabilitation.) Brief History: This 54-year-old gentleman was in his usual state of health when he fell suffering the above injury. The patient underwent left total knee arthroplasty on January 04 of this year. He was doing well with his postoperative rehabilitation. In fact, he had just requested if he could return to work. He got out of his car and after 2-3 steps tripped on large 3 inch plus rocks and fell directly onto his knee suffering the above injury. There is a significant compression and impaction injury with significant comminution of the fracture fragments. Procedure: Patient was brought to the operating theater. He was transferred to the operating room table and subsequently administered a general anesthetic intubated with supplemental preoperative regional block. Following administr ation of adequate general intubated anesthesia preoperative femoral nerve block, the patient's was placed on the flat top table and tourniquet was placed high on the leg. Fluoroscopy was used throughout the surgical procedure. Fracture was evaluated under fluoroscopic guidance. The patient's left lower extremity was then prepped and draped in usual fashion utilizing DuraPrep. It was draped lesa e. Following prepping and draping a surgical pause was performed. At the time of surgical pause, we identified the site and side of surgery. We also identified the patient and preoperative surgical markings. Confirmation was made of equipment availability. Additionally, the patient's preoperative IV antibiotic, vancomycin 1.5 g, was confirmed as being given in a timely fashion and being the appropriate antibiotic. TXA was also given preoperatively Following the surgical pause, we mapped out appropriate positioning for the plate and chose the appropriate length plate. This was a [place] 8 hole lateral supracondylar femoral plate. An incision was made over the distal aspect of the patient's lateral knee and distal thigh to allow access for internal fixation of the patient's supracondylar fracture with intercondylar extension. At that time, palpation demonstrated there was significant comminution with impaction and deformity of the femoral cortex. Prior to incision, we used fluoroscopy to determine the appropriate length of plate. The appropriate plate was an 8 hole Aman left distal lateral femoral plate. This was felt to be the appropriate length based on x-rays prior to exposure the fracture. Dissection continued through skin and soft tissues using a scalpel, and hemostasis was obtained using electrocautery. The lateral fascia manuelito was identified and incised longi tudinally. We dissected distally to allow placement of the plate which had to go over the lateral femoral condyle. Proximally, we dissected as necessary to allow for the 8-hole plate. The distal portion of the incision was made, and soft tissues were elevated off the lateral aspect of the femur subcutaneously. The plate was slid along the femur and position was confirmed under fluoroscopic guidance. A clamp was used to place the plate in appropriate position and hold it. Lasted so that it was in appropriate position both in AP and lateral planes. We had for screw holes above the fracture, and to alleviate significant dissection, we plan to leave the proximal hole empty as the next plate was to hold shorter. The plate was held in an appropriate position, and fluoroscopy was utilized to assure that it was in appropriate position. The plate was placed in appropriate position. It was pinned in place and modified until on both AP and lateral x-rays it was felt to be optimized. We used a combination of locking and nonlocking screws and distally we used locking screws. The plate was noted to fit nicely onto the femur. X-rays were evaluated in AP and lateral planes. Being satisfied with the plate and fracture reduction, attention was directed to closure. Copious irrigation was accomplished including irrigation of the knee joint. Several clots were obtained from the knee joint consistent with the intra- articular nature of the fracture. Once again the anterior femur was palpated and found to have minimal and certainly acceptable step-off. The knee was placed through range of motion with no evidence of complication. Closure was accomplished with 0 Vicryl in the fascial tissues. The subcutaneous tissues were closed with 2-0 Monocryl. The skin was closed with madiha. This was covered with their form gauze, 4 x 4's, sterile soft roll, and an Richard wrap. He was then placed into a Charlie brace set at approximately 20 degrees of flexion. He was returned to the recovery room in a satisfactory condition. The patient will be discharged back to the floor and will be touchdown weightbearing. There were no complications. Associated Problem List Diagnoses (1) Closed supracondylar fracture of femur: Qualifiers: Encounter type: initial encounter Laterality: left Qualified Code(s): S72.452A - Displaced supracondylar fracture without intracondylar extension of lower end of left femur, initial encounter for closed fracture (2) Anika-prosthetic fracture around prosthetic knee: Qualifiers: Encounter type: initial encounter Laterality: left Qualified Code(s): M97.12XA - Periprosthetic fracture around internal prosthetic left knee joint, i nitial encounter
[2020-04-08 17:06] LABS: Glucose Point of Care 317 mg/dL (70-110)
--- NOTE | 2020-04-08 17:15 | ANE.PACU2 ---
Inpatient post-anesthesia follow up: Airway intact: Yes Vital signs: Temperature 98.2 F Pulse Rate [Left] 87 Pulse Rate 80 Respiratory Rate 20 Blood Pressure [Ri ght Arm] 113/62 Blood Pressure 122/56 Pulse Oximetry 96 Oxygen Delivery Me thod Nasal Cannula Oxygen Flow Rate 2 Fraction of Inspir ed Oxygen Hydration adequate: Yes Nausea and vomiting: No Pain level: 1 Mental status: Baseline
[2020-04-08] MEDS: docusate sodium 100 mg Capsule PO (17:20)
[2020-04-08] MEDS: famotidine 20 mg Tablet PO (17:21)
[2020-04-08] MEDS: CELEcoxib 200 mg Capsule PO (17:22)
[2020-04-08 21:36] LABS: Glucose Point of Care 333 mg/dL (70-110)
[2020-04-08] MEDS: insulin glargine 100 units/1 mL 40 UNIT SUBCUT (22:15)
[2020-04-08] MEDS: ARIPiprazole 10 mg Tablet 5 MG PO (22:16)
[2020-04-08] MEDS: acetaminophen 500 mg Tablet 1000 MG PO (22:20)
[2020-04-09] VITALS (8 sets, daily range): BP systolic 101–118; BP diastolic 57–75; PULSE 71–81; RESP 16–18; TEMP 36.2–36.9; O2SAT 94–96
[2020-04-09] MEDS: HYDROcodone-acetaminophen 5-325 mg Tablet 1 TAB PO ×4 (00:54→23:29)
[2020-04-09] MEDS: apixaban 5 mg Tablet PO ×3 (02:07→16:57)
[2020-04-09] MEDS: oxyCODONE 5 mg IR Tab/Cap PO (02:07)
[2020-04-09 05:43] LABS: Basophils % 0.4 %; Eosinophils % 0.4 %; Hematocrit 30.4 % (42.0-52.0); Hemoglobin 9.1 g/dL (11.7-16.6); Lymphocytes # 0.8 10^3/uL (0.8-4.8); Lymphocytes % 14.6 %; Mean Corpuscular HGB Conc 29.9 g/dL (30.0-36.0); Mean Corpuscular Hemoglobin 24.8 pg (28.0-34.0); Mean Corpuscular Volume 82.8 fL (80-94); Mean Platelet Volume 12.6 fL (7.4-10.4); Monocytes # 0.5 10^3/uL (0.2-0.9); Monocytes % 9.1 %; Neutrophils # 4.02 10^3/uL (1.8-7.7); Neutrophils % 74.9 %; Nucleated Red Blood Cells % 0 %; Platelet Count 92 10^3/cmm (130-400); Red Blood Count 3.67 10^6/uL (4.1-5.3); Red Cell Distribution Width 16.1 % (12.1-15.1); White Blood Count 5.4 10^3/uL (4.0-10.0)
[2020-04-09 06:17] LABS: Alanine Aminotransferase 17 U/L (0-41); Albumin Level 2.7 g/dL (3.5-5.2); Alkaline Phosphatase 137 IU/L (40-130); Anion Gap 12.4 (5-19); Aspartate Amino Transferase 22 U/L (0-40); Blood Urea Nitrogen 16 mg/dL (6-20); Carbon Dioxide 27 mmol/L (22-29); Chloride 99 mmol/L (98-107); Globulin 3.2 g/dL (1.3-4.6); Glucose 291 mg/dL (65-115); Osmolality Calculated 290 mOsm/kg (285-295); Potassium 4.4 mmol/L (3.5-5.1); Sodium 134 mmol/L (136-145); Total Bilirubin 0.7 mg/dL (0.15-1.2); Total Protein 5.9 g/dL (6.6-8.7)
[2020-04-09] MEDS: acetaminophen 500 mg Tablet 1000 MG PO ×3 (06:31→23:29)
[2020-04-09 07:04] LABS: Glucose Point of Care 284 mg/dL (70-110)
[2020-04-09] MEDS: multivitamin therapeutic Tablet 1 TAB PO (08:27)
[2020-04-09] MEDS: docusate sodium 100 mg Capsule PO ×2 (08:27→16:58)
[2020-04-09] MEDS: carvedilol 6.25 mg Tablet PO ×2 (08:27→23:27)
[2020-04-09] MEDS: gabapentin 300 mg Capsule 600 MG PO ×3 (08:27→23:27)
[2020-04-09] MEDS: hyDROXYzine 25 mg Capsule PO ×3 (08:27→23:27)
[2020-04-09] MEDS: sertraline 100 mg Tablet PO (08:27)
[2020-04-09] MEDS: amlodipine 10 mg Tablet PO (08:27)
[2020-04-09] MEDS: spironolactone 25 mg Tablet PO (08:27)
[2020-04-09] MEDS: FUROsemide 40 mg Tablet PO ×2 (08:28→16:59)
[2020-04-09] MEDS: famotidine 20 mg Tablet PO ×2 (08:28→16:58)
[2020-04-09] MEDS: ropinirole 1 mg Tablet PO ×2 (08:28→23:28)
[2020-04-09] MEDS: CELEcoxib 200 mg Capsule PO ×2 (08:28→16:58)
[2020-04-09] MEDS: insulin glargine 100 units/1 mL 55 UNIT SUBCUT ×2 (08:50→23:28)
--- NOTE | 2020-04-09 08:50 | P.PN_ITS ---
Subjective Subjective: Interval history: No complaint of pain doing well. Vitals/I&O/Wt Last Vital Signs Temp 97.6 F 04/09/20 08:00 Pulse 71 04/09/20 08:00 Resp 18 04/09/20 08:00 BP 115/75 04/09/20 08:00 Pulse Ox 96 04/09/20 08:00 04/08/20 04/09/20 04/09/20 22:59 06:59 14:59 Intake Total 420 / 2530 480 / 3010 Output Total 1500 / 2200 800 / 3000 Balance -1080 / 330 -320 / 10 Weight last 48 hrs Weight 314 lb 6.4 oz Physical Exam Narrative: EXAM NARRATIVE: Brace in place dressing intact Urinary Catheter Management^: Ingram: Cath Placed During This Visit: yes, but has since been removed by the nurse Urinary Catheter Date of Insertion: 04/08/20 Urinary Catheter Time of Insertion: 11:45 Date Urinary Catheter Removed: 04/08/20 Time Urinary Catheter Discontinued: 13:54 Data : 04/09/20 05:16 04/09/20 05:16 A&P Additional A&P Information POD#1 ORIF R Periprosthetic distal femur fracture Attestations Medical Necessity Statement*: Will need help post operatively with therapy and pain control Coding Level of Care Code Acute Oxygen System Tester for Shreya Espinoza
[2020-04-09] MEDS: diazePAM 5 mg Tablet PO (11:14)
[2020-04-09 11:46] LABS: Glucose Point of Care 370 mg/dL (70-110)
--- NOTE | 2020-04-09 14:43 | PM.PN ---
Subjective Subjective: Interval history: No complaints overnight. Patient underwent ORIF yesterday and tolerated the procedure well. On examination of both with physical therapy. Denies any nausea vomiting, headache. Seems cheerful. States pain is well controlled. Vitals/I&O/Wt Last Vital Signs Temp 97.4 F L 04/09/20 12:00 Pulse 73 04/09/20 12:00 Resp 18 04/09/20 12:00 BP 103/66 04/09/20 12:00 Pulse Ox 95 04/09/20 12:00 04/08/20 04/09/20 04/09/20 22:59 06:59 14:59 Intake Total 420 / 2530 480 / 3010 600 / 600 Output Total 1500 / 2200 800 / 3000 Balance -1080 / 330 -320 / 10 600 / 600 Weight last 48 hrs Weight 142.609 kg Physical Exam Narrative: EXAM NARRATIVE: General: No acute distress, AO x3 HEENT: PERRLA, pupils bilaterally equal and reactive Chest: Normal vesicular breath sounds, no added sounds, equal good air entry bilaterally CVS: S1-S2 irregularly irregular , no murmurs, no tachycardia, no gallops, no rubs Abdomen: Soft, nontender, no organomegaly, bowel sounds present Neuro: No focal deficits, no facial deformity, AO x3, power 5/5 in all limbs Extremities: Peripheral pulses bilaterally palpable, left leg rotated externally with bruise present on the knee, able to wiggle both toes bilaterally. Urinary Catheter Management^: Ingram: Cath Placed During This Visit: yes, but has since been removed by the nurse Urinary Catheter Date of Insertion: 04/08/20 Urinary Catheter Time of Insertion: 11:45 Date Urinary Catheter Removed: 04/08/20 Time Urinary Catheter Discontinued: 13:54 Data : 04/09/20 05:16 04/09/20 05:16 A&P Assessment and plan (1) Fall: Status: Acute (2) Fracture of femur: Status: Acute Qualifiers: Encounter type: initial encounter Femur location: distal, unspecified portion Fracture morphology: unspecified fracture morphology Fracture type: closed Laterality: left Qualified Code(s): S72.402A - Unspecified fracture of lower end of left femur, initial encounter for closed fracture (3) Atrial fibrillation: Status: Acute Qualifiers: Atrial fibrillation type: unspecified chronic Qualified Code(s): I48.20 - Chronic atrial fibrillation, unspecified (4) Congestive heart failure: Status: Acute Qualifiers: Heart failure type: unspecified Heart failure chronicity: chronic Qualified Code(s): I50.9 - Heart failure, unspecified (5) Hypertension: Status: Acute Qualifiers: Hypertension type: essential hypertension Qualified Code(s): I10 - Essential (primary) hypertension (6) Diabetes: Status: Acute Qualifiers: Diabetes mellitus complication status: with hyperglycemia Diabetes mellitus dedicated intermodal truck driver insulin use: with dedicated intermodal truck driver use Diabetes mellitus type: type 2 Qualified Code(s): E11.65 - Type 2 diabetes mellitus with hyperglycemia; Z79.4 - terminal block assembler (current) use of insulin (7) Anxiety: Status: Acute (8) S/P total knee arthroplasty: Status: Acute Qualifiers: Laterality: left Qualified Code(s): Z96.652 - Presence of left artificial knee joint (9) COVID-19: Status: Acute Additional A&P Information 54-year-old man with past medical history of atrial fibrillation, congestive heart failure type 2 diabetes mellitus, recent COVID-19 presents after having a fall and found to have left femoral fracture. Fall: Mechanical as he twisted his ankles while walking on the rocks. Left fracture femur: Postop day 1. Anticoagulation, physical therapy, perioperative antibiotics, weightbearing as per orthopedics. Continue [place] 5 1 tab every 6 hours as needed along with celecoxib for pain. Monitor hemoglobin. Atrial fibrillation: Rate controlled at present. Continue home dose of carvedilol. Telemetry monitoring. Restart Eliquis at home dose. Congestive heart failure: Euvolemic at present. Patient takes forsemide 40 mg twice daily, spironolactone 25 mg daily at home. Continues with home doses of medication. Last echocardiogram from April 2019 shows an EF 55% with grade 2 diastolic dysfunction with mildly dilated LA. Hypertension: Known goal blood pressure less than 140/90 Hg. For now continue with home dose of amlodipine. We will continue to monitor blood pressures. Type 2 diabetes mellitus: Continue with home dose of Lantus 55 units twice daily. Continue with insulin sliding scale moderate dose protocol. Will monitor insulin requirements in next 24 hours and if needed will increase Lantus accordingly. HbA1c 9.3. Anemia: Baseline hemoglobin around 11. 9 today. Most likely secondary to operative losses. Iron panel appreciated. Continue with oral iron supplementation. Continue with monitoring hemoglobin daily for now. COVID-19: Tested positive in December. Has finished his quarantine. Asymptomatic at present. Chest x-ray. COVID-19 PCR has been sent from the ER. For now isolation precautions. Anxiety: Continue with home dose of and baseline, Zoloft. Continue other chronic medication like hydroxyzine, gabapentin, Requip Full code. Carb consistent cardiac diet. N.p.o. after midnight on for possible surgery on Saturday. Heparin drip will also help with DVT prophylaxis, foot pumps. Discharge planning: As per the physical therapy evaluation patient requires more assistance at present given his weight, body habitus and nonweightbearing status for which he would need to be placed at SNF for further rehabitation to regain his strength. We will consult case management for possible level 2 placement. Attestations Medical Necessity Statement*: Patient requires further hospitalization for postoperative management for left femur fracture while safe discharge disposition is awaited. Time Spent in Patient Care: Greater than 35 minutes (>than 50% of time spent in counselling and/or direct pt care on unit). Coding Level of Care Code Acute Manufacturing Development Engineer for [facility] Fwd Diagnoses Fall W19.XXXA Fracture of femur S72.402A Encounter type: initial encounter Femur location: distal, unspecified portion Fracture morphology: unspecified fracture morphology Fracture type: closed Laterality: left Atrial fibrillation I48.20 Atrial fibrillation type: unspecified chronic Congestive heart failure I50.9 Heart failure type: unspecified Heart failure chronicity: chronic Hypertension I10 Hypertension type: essential hypertension Diabetes E11.65; Z79.4 Diabetes mellitus complication status: with hyperglycemia Diabetes mellitus dedicated intermodal truck driver insulin use: with group home use Diabetes mellitus type: type 2 Anxiety F41.9 S/P total knee arthroplasty Z96.652 Laterality: left COVID-19 U07.1
[2020-04-09 16:37] LABS: Glucose Point of Care 465 mg/dL (70-110)
[2020-04-09] MEDS: ferrous gluconate 324 mg Tablet PO (16:58)
[2020-04-09 21:29] LABS: Glucose Point of Care 382 mg/dL (70-110)
[2020-04-09] MEDS: ARIPiprazole 10 mg Tablet 5 MG PO (23:25)
[2020-04-10] VITALS (7 sets, daily range): BP systolic 101–131; BP diastolic 61–81; PULSE 55–84; RESP 16–18; TEMP 36.3–36.6; O2SAT 94–97
[2020-04-10 05:12] LABS: Basophils % 1.1 %; Eosinophils # 0.1 10^3/uL (0.0-0.8); Eosinophils % 3.8 %; Hematocrit 28.7 % (42.0-52.0); Hemoglobin 8.6 g/dL (11.7-16.6); Lymphocytes # 1.1 10^3/uL (0.8-4.8); Mean Corpuscular Hemoglobin 25.4 pg (28.0-34.0); Mean Corpuscular Volume 84.7 fL (80-94); Mean Platelet Volume 12.2 fL (7.4-10.4); Monocytes # 0.4 10^3/uL (0.2-0.9); Monocytes % 10.8 %; Neutrophils # 2.03 10^3/uL (1.8-7.7); Nucleated Red Blood Cells % 0 %; Platelet Count 93 10^3/cmm (130-400); Red Blood Count 3.39 10^6/uL (4.1-5.3); Red Cell Distribution Width 16.6 % (12.1-15.1); White Blood Count 3.7 10^3/uL (4.0-10.0)
[2020-04-10 05:37] LABS: Alanine Aminotransferase 21 U/L (0-41); Albumin Level 2.6 g/dL (3.5-5.2); Alkaline Phosphatase 190 IU/L (40-130); Anion Gap 7.8 (5-19); Aspartate Amino Transferase 28 U/L (0-40); Blood Urea Nitrogen 18 mg/dL (6-20); Calcium 8.1 mg/dL (8.5-10.5); Carbon Dioxide 31 mmol/L (22-29); Chloride 100 mmol/L (98-107); Globulin 3.2 g/dL (1.3-4.6); Glomerular Filtration Rate 101.1 mL/min (90-130); Glucose 269 mg/dL (65-115); Osmolality Calculated 291 mOsm/kg (285-295); Potassium 3.8 mmol/L (3.5-5.1); Sodium 135 mmol/L (136-145); Total Bilirubin 0.6 mg/dL (0.15-1.2); Total Protein 5.8 g/dL (6.6-8.7)
[2020-04-10] MEDS: acetaminophen 500 mg Tablet 1000 MG PO ×3 (06:44→23:22)
[2020-04-10 07:45] LABS: Glucose Point of Care 208 mg/dL (70-110)
--- NOTE | 2020-04-10 09:46 | PM.PN ---
Subjective Subjective: Interval history: pain controlled resting comfortably in bed Vitals/I&O/Wt Last Vital Signs Temp 97.7 F 04/10/20 07:24 Pulse 75 04/10/20 07:24 Resp 17 04/10/20 07:24 BP 110/70 04/10/20 07:24 Pulse Ox 96 04/10/20 07:24 04/09/20 04/10/20 04/10/20 22:59 06:59 14:59 Intake Total 720 / 1320 400 / 1720 240 / 240 Output Total 1600 / 1600 800 / 2400 Balance -880 / -280 -400 / -680 240 / 240 Weight last 48 hrs Weight 319 lb 3.2 oz Weight 314 lb 6.4 oz Physical Exam Narrative: EXAM NARRATIVE: Moving toes dressing intact Urinary Catheter Management^: Ingram: Cath Placed During This Visit: yes, but has since been removed by the nurse Urinary Catheter Date of Insertion: 04/08/20 Urinary Catheter Time of Insertion: 11:45 Date Urinary Catheter Removed: 04/08/20 Time Urinary Catheter Discontinued: 13:54 Data : 04/10/20 04:49 04/10/20 04:49 A&P Additional A&P Information s/p ORIF Left periprosthetic femur fx of knee continue current tx Attestations Medical Necessity Statement*: placement issues Coding Level of Care Code Acute After School Program Coordinator for Shreya Espinoza
[2020-04-10] MEDS: famotidine 20 mg Tablet PO ×2 (10:02→17:07)
[2020-04-10] MEDS: carvedilol 6.25 mg Tablet PO ×2 (10:02→21:06)
[2020-04-10] MEDS: multivitamin therapeutic Tablet 1 TAB PO (10:02)
[2020-04-10] MEDS: hyDROXYzine 25 mg Capsule PO ×3 (10:02→21:06)
[2020-04-10] MEDS: apixaban 5 mg Tablet PO ×2 (10:02→17:07)
[2020-04-10] MEDS: ferrous gluconate 324 mg Tablet PO ×2 (10:02→17:07)
[2020-04-10] MEDS: docusate sodium 100 mg Capsule PO ×2 (10:02→17:07)
[2020-04-10] MEDS: CELEcoxib 200 mg Capsule PO ×2 (10:03→17:07)
[2020-04-10] MEDS: sertraline 100 mg Tablet PO (10:03)
[2020-04-10] MEDS: spironolactone 25 mg Tablet PO (10:03)
[2020-04-10] MEDS: FUROsemide 40 mg Tablet PO ×2 (10:03→17:07)
[2020-04-10] MEDS: gabapentin 300 mg Capsule 600 MG PO ×3 (10:03→21:08)
[2020-04-10] MEDS: amlodipine 10 mg Tablet PO (10:03)
[2020-04-10] MEDS: ropinirole 1 mg Tablet PO ×2 (10:03→21:06)
[2020-04-10] MEDS: HYDROcodone-acetaminophen 5-325 mg Tablet 1 TAB PO ×2 (10:05→17:07)
[2020-04-10] MEDS: insulin glargine 100 units/1 mL 55 UNIT SUBCUT ×2 (10:53→21:05)
[2020-04-10 11:11] LABS: Glucose Point of Care 302 mg/dL (70-110)
[2020-04-10 11:11] LABS: Glucose Point of Care 92 mg/dL (70-110)
[2020-04-10] MEDS: diazePAM 5 mg Tablet PO (11:37)
--- NOTE | 2020-04-10 13:17 | P.PN_ITS ---
Subjective Subjective: Interval history: Events overnight. On examination sitting up in chair therapy. Working well with physical therapy. States pain is controlled. Denies any nausea, vomiting, headache. Vitals and labs appreciated. Has remained stable. Afebrile. Vitals/I&O/Wt Last Vital Signs Temp 97.9 F 04/10/20 11:00 Pulse 84 04/10/20 11:00 Resp 18 04/10/20 11:00 BP 117/68 04/10/20 11:00 Pulse Ox 96 04/10/20 11:00 04/09/20 04/10/20 04/10/20 22:59 06:59 14:59 Intake Total 720 / 1320 400 / 1720 240 / 240 Output Total 1600 / 1600 800 / 2400 500 / 500 Balance -880 / -280 -400 / -680 -260 / -260 Weight last 48 hrs Weight 144.787 kg Weight 142.609 kg Physical Exam Narrative: EXAM NARRATIVE: General: No acute distress, AO x3 HEENT: PERRLA, pupils bilaterally equal and reactive Chest: Normal vesicular breath sounds, no added sounds, equal good air entry bilaterally CVS: S1-S2 irregularly irregular , no murmurs, no tachycardia, no gallops, no rubs Abdomen: Soft, nontender, no organomegaly, bowel sounds present Neuro: No focal deficits, no facial deformity, AO x3, power 5/5 in all limbs Extremities: Peripheral pulses bilaterally palpable, left leg rotated externally with bruise present on the knee, able to wiggle both toes bilaterally. Urinary Catheter Management^: Ingram: Cath Placed During This Visit: yes, but has since been removed by the nurse Urinary Catheter Date of Insertion: 04/08/20 Urinary Catheter Time of Insertion: 11:45 Date Urinary Catheter Removed: 04/08/20 Time Urinary Catheter Discontinued: 13:54 Data : 04/10/20 04:49 04/10/20 04:49 A&P Assessment and plan (1) Fall: Status: Acute (2) Fracture of femur: Status: Acute Qualifiers: Encounter type: initial encounter Femur location: distal, unspecified portion Fracture morphology: unspecified fracture morphology Fracture type: closed Laterality: left Qualified Code(s): S72.402A - Unspecified fracture of lower end of left femur, initial encounter for closed fracture (3) Atrial fibrillation: Status: Acute Qualifiers: Atrial fibrillation type: unspecified chronic Qualified Code(s): I48.20 - Chronic atrial fibrillation, unspecified (4) Congestive heart failure: Status: Acute Qualifiers: Heart failure type: unspecified Heart failure chronicity: chronic Qualified Code(s): I50.9 - Heart failure, unspecified (5) Hypertension: Status: Acute Qualifiers: Hypertension type: essential hypertension Qualified Code(s): I10 - Essential (primary) hypertension (6) Diabetes: Status: Acute Qualifiers: Diabetes mellitus complication status: with hyperglycemia Diabetes mellitus ocean transportation intermediary insulin use: with senior living use Diabetes mellitus type: type 2 Qualified Code(s): E11.65 - Type 2 diabetes mellitus with hyperglycemia; Z79.4 - continuous churn buttermaker (current) use of insulin (7) Anxiety: Status: Acute (8) S/P total knee arthroplasty: Status: Acute Qualifiers: Laterality: left Qualified Code(s): Z96.652 - Presence of left artificial knee joint (9) COVID-19: Status: Acute Additional A&P Information 54-year-old man with past medical history of atrial fibrillation, congestive heart failure type 2 diabetes mellitus, recent COVID-19 presents after having a fall and found to have left femoral fracture. Fall: Mechanical as he twisted his ankles while walking on the rocks. Left fracture femur: Postop day 2. Anticoagulation, physical therapy, perioperative antibiotics, weightbearing as per orthopedics. Continue [place] 5 1 tab every 6 hours as needed along with celecoxib for pain. Hemoglobin 8.3 today. Mildly low since yesterday. We will continue to monitor. No active signs of bleeding. Recheck hemoglobin in evening around 6 PM. Atrial fibrillation: Rate controlled at present. Continue home dose of carvedilol. Telemetry monitoring. Restart Eliquis at home dose. Congestive heart failure: Euvolemic at present. Patient takes forsemide 40 mg twice daily, spironolactone 25 mg daily at home. Continues with home doses of medication. Last echocardiogram from April 2019 shows an EF 55% with grade 2 diastolic dysfunction with mildly dilated LA. Hypertension: Known goal blood pressure less than 140/90 Hg. For now continue with home dose of amlodipine. We will continue to monitor blood pressures. Type 2 diabetes mellitus: Continue with home dose of Lantus 55 units twice daily. Continue with insulin sliding scale moderate dose protocol. Will monitor insulin requirements in next 24 hours and if needed will increase Lantus accordingly. HbA1c 9.3. Anemia: Baseline hemoglobin around 11. 8.3 today. We will continue to monitor. Repeat hemoglobin afternoon. Transfuse if hemoglobin falls below 8 because of history of congestive heart failure and atrial fibrillation. Continue with monitoring hemoglobin daily for now. COVID-19: Tested positive in December. Has finished his quarantine. Asymptomatic at present. Chest x-ray. COVID-19 PCR has been sent from the ER. For now isolation precautions. Anxiety: Continue with home dose of and baseline, Zoloft. Continue other chronic medication like hydroxyzine, gabapentin, Requip Full code. Carb consistent cardiac diet. N.p.o. after midnight on for possible surgery on Saturday. Heparin drip will also help with DVT prophylaxis, foot pumps. Discharge planning: As per the physical therapy evaluation patient requires more assistance at present given his weight, body habitus and nonweightbearing status for which he would need to be placed at SNF for further rehabitation to regain his strength. We will consult case management for possible level 2 placement. Attestations Medical Necessity Statement*: Needs further hospitalization for management of postoperative care for left femur fracture, anemia with baseline atrial fibrillation, congestive heart failure while safe discharge planning is sought to SNF for further rehabitation. Time Spent in Patient Care: Greater than 35 minutes (>than 50% of time spent in counselling and/or direct pt care on unit) . Coding Level of Care Code Acute Piano Mover for [facility] Fwd Diagnoses Fall W19.XXXA Fracture of femur S72.402A Encounter type: initial encounter Femur location: distal, unspecified portion Fracture morphology: unspecified fracture morphology Fracture type: closed Laterality: left Atrial fibrillation I48.20 Atrial fibrillation type: unspecified chronic Congestive heart failure I50.9 Heart failure type: unspecified Heart failure chronicity: chronic Hypertension I10 Hypertension type: essential hypertension Diabetes E11.65; Z79.4 Diabetes mellitus complication status: with hyperglycemia Diabetes mellitus senior living insulin use: with ocean transportation intermediary use Diabetes mellitus type: type 2 Anxiety F41.9 S/P total knee arthroplasty Z96.652 Laterality: left COVID-19 U07.1
[2020-04-10 16:48] LABS: Glucose Point of Care 331 mg/dL (70-110)
[2020-04-10 20:32] LABS: Glucose Point of Care 320 mg/dL (70-110)
[2020-04-10] MEDS: ARIPiprazole 10 mg Tablet 5 MG PO (21:06)
[2020-04-11 04:00] VITALS: BP 116/70; PULSE 66; RESP 12; TEMP 36.6; O2SAT 93
[2020-04-11 05:33] LABS: Basophils % 0.8 %; Eosinophils # 0.1 10^3/uL (0.0-0.8); Eosinophils % 3.3 %; Hematocrit 30.6 % (42.0-52.0); Lymphocytes # 1.1 10^3/uL (0.8-4.8); Lymphocytes % 30.2 %; Mean Corpuscular HGB Conc 29.4 g/dL (30.0-36.0); Mean Corpuscular Hemoglobin 24.7 pg (28.0-34.0); Mean Corpuscular Volume 84.1 fL (80-94); Mean Platelet Volume 12.7 fL (7.4-10.4); Monocytes # 0.4 10^3/uL (0.2-0.9); Monocytes % 10.9 %; Neutrophils % 54.5 %; Nucleated Red Blood Cells % 0 %; Platelet Count 121 10^3/cmm (130-400); Red Blood Count 3.64 10^6/uL (4.1-5.3); Red Cell Distribution Width 17.2 % (12.1-15.1); White Blood Count 3.7 10^3/uL (4.0-10.0)
--- NOTE | 2020-04-11 06:20 | NUR.SHIFT ---
Patient has mainly slept. No issues with pain, afibrile, good pulses.
[2020-04-11 07:42] VITALS: BP 132/79; PULSE 74; RESP 18; TEMP 36.6; O2SAT 94
[2020-04-11 07:48] LABS: Glucose Point of Care 131 mg/dL (70-110)
[2020-04-11] MEDS: spironolactone 25 mg Tablet PO (08:32)
[2020-04-11] MEDS: docusate sodium 100 mg Capsule PO ×2 (08:32→17:25)
[2020-04-11] MEDS: sertraline 100 mg Tablet PO (08:32)
[2020-04-11] MEDS: amlodipine 10 mg Tablet PO (08:32)
[2020-04-11] MEDS: multivitamin therapeutic Tablet 1 TAB PO (08:32)
[2020-04-11] MEDS: famotidine 20 mg Tablet PO ×2 (08:32→17:25)
[2020-04-11] MEDS: CELEcoxib 200 mg Capsule PO ×2 (08:33→17:25)
[2020-04-11] MEDS: FUROsemide 40 mg Tablet PO ×2 (08:33→17:26)
[2020-04-11] MEDS: ferrous gluconate 324 mg Tablet PO ×2 (08:33→17:25)
[2020-04-11] MEDS: apixaban 5 mg Tablet PO ×2 (08:33→17:25)
[2020-04-11] MEDS: ropinirole 1 mg Tablet PO ×2 (08:45→21:40)
[2020-04-11] MEDS: gabapentin 300 mg Capsule 600 MG PO ×3 (08:45→21:40)
[2020-04-11] MEDS: insulin glargine 100 units/1 mL 55 UNIT SUBCUT ×2 (08:45→21:41)
[2020-04-11] MEDS: carvedilol 6.25 mg Tablet PO ×2 (08:46→21:43)
[2020-04-11] MEDS: HYDROcodone-acetaminophen 5-325 mg Tablet 1 TAB PO ×3 (08:46→21:39)
[2020-04-11] MEDS: hyDROXYzine 25 mg Capsule PO ×3 (08:46→21:40)
--- NOTE | 2020-04-11 09:30 | PC.CHAP ---
Pastoral Care Encounter/Spiritual Assessment Type of Contact [] Declined sail finisher hand visit [] Patient/Family/Request visit [] Outpatient visit [] Follow-up visit [] Physician referral [] Code/Alert [] Routine visit [] Staff referral [] Actively dying [] Patient sleeping [] Family support [] [] Out of room [] Palliative care [] [] Receiving care in room [] Pre-surgical visit [] Trauma [] Long length of stay [] ICU visit [] Other: Relational/Emotional Strength [x] Patient feels connected with others/family/visitors/staff [] Distress [] Loneliness/isolation [] Abandonment Spirituality of Patient [x] Person of Sara [] Attends Anabaptist of their Sara [] Believes in Prayer [] Reads Bible or Taoist materials [] There are Spiritual issues to be addressed Curriculum Counselor Interventions x[] Prayer [x] Active listening [] Non-anxious presence [] Spiritual/emotional support [] Crisis/trauma care [] Spiritual counseling [] Bereavement support [] Provided bereavement packet [] Provided Bible/devotional materials [] Provided toy/stuffed animal, coloring book to patient or family member [] Provided Communion [] Anointing/[place] [] Salvation [x] Completed spiritual assessment [] Other: Impact on Illness or Injury [] Angry [] Fearful [] Anxious [] Often cries [] Exhaustion [] Unable to work [] Unable to attend druze [] Unable to walk/stand [] Unable to read [] Unable to drive [] Unable to eat/drink [] Unable to sleep [] Unable to be with family [] Patient intubated [] Other: Summary patient ready to go to rehab Time spent with patient 20 min
[2020-04-11 10:54] LABS: Glucose Point of Care 243 mg/dL (70-110)
--- NOTE | 2020-04-11 11:09 | P.PN_ITS ---
Subjective Subjective: Interval history: This morning patient was examined, logistics system engineer is at bedside, his left leg is in a immobilizer, he is in good spirits, tells me that he is awaiting senior living placement, has no particular complaints except that the cafeteria has brought him the wrong order for the last 3 days, this morning he had asked for oatmeal and could not even get that Vitals/I&O/Wt Last Vital Signs Temp 97.9 F 04/11/20 07:42 Pulse 74 04/11/20 07:42 Resp 18 04/11/20 07:42 BP 132/79 04/11/20 07:42 Pulse Ox 94 04/11/20 07:42 04/10/20 04/11/20 04/11/20 22:59 06:59 14:59 Intake Total 240 / 720 480 / 480 Output Total 750 / 1250 Balance 240 / 220 -750 / -530 480 / 480 Weight last 48 hrs Weight 144.696 kg Weight 144.787 kg Physical Exam Const: COMMON NORMALS: no acute distress and patient oriented x3 HENMT: COMMON NORMALS: normocephalic HEAD & SCALP: normocephalic Neck/C-Spine: COMMON NORMALS: no JVD Resp: COMMON NORMALS: normal respiratory effort, No retractions, No use of accessory muscles and clear to auscultation bilaterally AUSCULTATION: clear to auscultation bilaterally Cardio: COMMON NORMALS: no JVD, regular rate, regular rhythm, S1 normal heart sound present and S2 normal heart sound present RATE: regular rate RHYTHM: regular rhythm HEART SOUNDS: S1 normal heart sound present and S2 normal heart sound present GI: COMMON NORMALS: Normal to inspection, nondistended, normoactive bowel sounds present, Soft to palpation, non-tender, No hepatosplenomegaly present, no masses and no bruits PALPATION: Yes Soft to palpation and Yes No hepatosplenomegaly present Extremity: COMMON NORMALS: capillary refill normal, no clubbing, cyanosis or edema, no calf tenderness and no pedal edema NARRATIVE EXTREMITY EXAM: Left leg in immobilizer Neuro: COMMON NORMALS: patient oriented x3 Psych: COMMON NORMALS: mental status grossly normal Urinary Catheter Management^: Ingram: Cath Placed During This Visit: yes, but has since been removed by the nurse Urinary Catheter Date of Insertion: 04/08/20 Urinary Catheter Time of Insertion: 11:45 Date Urinary Catheter Removed: 04/08/20 Time Urinary Catheter Discontinued: 13:54 Data : 04/11/20 04:57 04/10/20 04:49 A&P Assessment and plan (1) Fall: Status: Acute (2) Fracture of femur: Status: Acute Qualifiers: Encounter type: initial encounter Femur location: distal, unspecified portion Fracture morphology: unspecified fracture morphology Fracture type: closed Laterality: left Qualified Code(s): S72.402A - Unspecified fracture of lower end of left femur, initial encounter for closed fracture (3) Atrial fibrillation: Status: Acute Qualifiers: Atrial fibrillation type: unspecified chronic Qualified Code(s): I48.20 - Chronic atrial fibrillation, unspecified (4) Congestive heart failure: Status: Acute Qualifiers: Heart failure type: unspecified Heart failure chronicity: chronic Qualified Code(s): I50.9 - Heart failure, unspecified (5) Hypertension: Status: Acute Qualifiers: Hypertension type: essential hypertension Qualified Code(s): I10 - Essential (primary) hypertension (6) Diabetes: Status: Acute Qualifiers: Diabetes mellitus complication status: with hyperglycemia Diabetes mellitus [facility] use: with [facility] use Diabetes mellitus type: type 2 Qualified Code(s): E11.65 - Type 2 diabetes mellitus with hyperglycemia; Z79.4 - residential (current) use of insulin (7) Anxiety: Status: Acute (8) S/P total knee arthroplasty: Status: Acute Qualifiers: Laterality: left Qualified Code(s): Z96.652 - Presence of left artificial knee joint (9) COVID-19: Status: Acute Additional A&P Information 54-year-old man with past medical history of atrial fibrillation, congestive heart failure type 2 diabetes mellitus, recent COVID-19 presents after having a fall and found to have left femoral fracture. Fall: Mechanical as he twisted his ankles while walking on the rocks. Left fracture femur: Postop day 3 Anticoagulation, physical therapy, perioperative antibiotics, weightbearing as per orthopedics. Continue [place] 5 1 tab every 6 hours as needed along with celecoxib for pain. Hemoglobin 9.0 today. Mildly low since yesterday. We will continue to monitor. No active signs of bleeding. Recheck hemoglobin in evening around 6 PM. Atrial fibrillation: Rate controlled at present. Continue home dose of carvedilol. Telemetry monitoring. Restart Eliquis at home dose. Congestive heart failure: Euvolemic at present. Patient takes forsemide 40 mg twice daily, spironolactone 25 mg daily at home. Continues with home doses of medication. Last echocardiogram from April 2019 shows an EF 55% with grade 2 diastolic dysfunction with mildly dilated LA. Hypertension: Known goal blood pressure less than 140/90 Hg. For now continue with home dose of amlodipine. We will continue to monitor blood pressures. Type 2 diabetes mellitus: Continue with home dose of Lantus 55 units twice daily. Continue with insulin sliding scale moderate dose protocol. Will monitor insulin requirements in next 24 hours and if needed will increase Lantus accordingly. HbA1c 9.3. Anemia: Baseline hemoglobin around 11. 9.0 today We will continue to monitor. Repeat hemoglobin afternoon. Transfuse if hemoglobin falls below 8 because of history of congestive heart failure and atrial fibrillation. Continue with monitoring hemoglobin daily for now. COVID-19: Tested positive in December. Has finished his quarantine. Asymptomatic at present. Chest x-ray. COVID-19 PCR has been sent from the ER. For now isolation precautions. Anxiety: Continue with home dose of and baseline, Zoloft. Continue other chronic medication like hydroxyzine, gabapentin, Requip Pancytopenia, white blood cell count 3.7, hemoglobin 9.0, platelet count 121 likely secondary to fall, postsurgical, continue to monitor for fevers Full code. Carb consistent cardiac diet. Eliquis for DVT prophylaxis Discharge planning: As per the physical therapy evaluation patient requires more assistance at present given his weight, body habitus and nonweightbearing status for which he would need to be placed at SNF for further rehabitation to regain his strength. Plan for today, awaiting senior living placement, continue PT OT, Attestations Medical Necessity Statement*: Patient requires hospitalization for fracture of femur, awaiting senior living placement Coding Level of Care Code Acute Mat Machine Tender for [facility] Diagnoses Fall W19.XXXA Fracture of femur S72.402A Encounter type: initial encounter Femur location: distal, unspecified portion Fracture morphology: unspecified fracture morphology Fracture type: closed Laterality: left Atrial fibrillation I48.20 Atrial fibrillation type: unspecified chronic Congestive heart failure I50.9 Heart failure type: unspecified Heart failure chronicity: chronic Hypertension I10 Hypertension type: essential hypertension Diabetes E11.65; Z79.4 Diabetes mellitus complication status: with hyperglycemia Diabetes mellitus [facility] insulin use: with [facility] use Diabetes mellitus type: type 2 Anxiety F41.9 S/P total knee arthroplasty Z96.652 Laterality: left COVID-19 U07.1
[2020-04-11] MEDS: diazePAM 5 mg Tablet PO ×2 (11:41→20:17)
[2020-04-11 11:42] VITALS: BP 122/77; PULSE 78; RESP 18; TEMP 36.4; O2SAT 94
--- NOTE | 2020-04-11 13:30 | PC.NURSE ---
blood cultures 1 of 4 bottles positive for gram positive rods. Dr Cheng notified by charge nurse Kim Graham RN
--- NOTE | 2020-04-11 13:39 | PC.NURSE ---
Dr Blunt removed patient's frank wrap and dressing. scientific technical writer applied katie, EDSON and SCD to surgical leg as ordered by Dr Blunt. PT notified that patient needs Leg brace refitted since dressing and frank wrap was removed.
--- NOTE | 2020-04-11 14:33 | PM.PN ---
Subjective Subjective: Interval history: The patient is doing better than he was over the weekend. He seems to be in a position where his pain is well controlled. He does not feel that he can function at home independently particularly given his nonweightbearing status. He is being evaluated for possible assisted. Medications: Reviewed: Yes Vitals/I&O/Wt Last Vital Signs Temp 97.6 F 04/11/20 11:42 Pulse 78 04/11/20 11:42 Resp 18 04/11/20 11:42 BP 122/77 04/11/20 11:42 Pulse Ox 94 04/11/20 11:42 04/10/20 04/11/20 04/11/20 22:59 06:59 14:59 Intake Total 240 / 720 1080 / 1080 Output Total 750 / 1250 1050 / 1050 Balance 240 / 220 -750 / -530 30 / 30 Weight last 48 hrs Weight 319 lb Weight 319 lb 3.2 oz Physical Exam Const: COMMON NORMALS: no acute distress, average body habitus, patient oriented x3 and alert GENERAL APPEARANCE: cooperative and comfortable ORIENTATION/CONSCIOUSNESS: Yes awake HENMT: COMMON NORMALS: normocephalic and atraumatic HEAD & SCALP: normocephalic and atraumatic Eye: GENERAL EYE: appearance normal, both eyes and all related structures Chest: COMMONS NORMALS: normal inspection of the chest Resp: COMMON NORMALS: normal respiratory effort EFFORT & INSPECTION: Yes able to speak in complete sentences and Yes symmetric chest movement Extremity: LEFT LOWER EXTREMITY: Yes knee joint Left knee: Yes inspection (Dressing is removed. There is no drainage. Wound is benign.), Yes palpation (Minimal tenderness), Yes ROM (Flexion to 60 degrees actively with lacking 7 degrees of extension) and Yes neurovascular exam (Intact distally) Neuro: COMMON NORMALS: patient oriented x3 SENSORIUM/ORIENTATION: Yes alert GAIT: Yes Unable to assess gait (Secondary to fracture) Psych: COMMON NORMALS: mental status grossly normal APPEARANCE: Yes grossly normal ATTITUDE: Yes calm and Yes engaged ATTENTION/CONCENTRATION: Yes attention grossly intact Skin: COMMON NORMALS: no rashes or lesions noted GENERAL SKIN EXAM: no rashes or lesions noted Urinary Catheter Management^: Ingram: Cath Placed During This Visit: yes, but has since been removed by the nurse Urinary Catheter Date of Insertion: 04/08/20 Urinary Catheter Time of Insertion: 11:45 Date Urinary Catheter Removed: 04/08/20 Time Urinary Catheter Discontinued: 13:54 Data : 04/11/20 04:57 04/10/20 04:49 Micro: Microbiology 04/06/20 19:25 Blood Culture - Preliminary Blood Gram positive maynor A&P Assessment and plan (1) Closed supracondylar fracture of femur: This gentleman is well-known to me following total knee arthroplasty in December of this year. The patient had a fall directly onto his total knee arthroplasty when he was unable to maintain footing in pile of 3 inch rocks. He was admitted through the emergency department with a periprosthetic supracondylar left femur fracture. The patient was admitted to the medical service secondary to multiple medical comorbidities. Surgery was accomplished on the afternoon of April 08 following medical evaluation and treatment. Following the surgical procedure, the patient was placed back on Eliquis as an anticoagulant. The severity of his fracture was explained to him today in detail. He understands that he is to be nonweightbearing on this extremity and the reasons why. Of note, he did have 1 bottle out of 4+ blood cultures on April 06. The other set up for cultures remain negative. It is felt that this is likely a contaminant. Otherwise, the patient does not feel that he will be able to function at home independently, and I am in agreement with this as he must maintain strict nonweightbearing. He will likely require assisted for postoperative rehabilitation. Status: Acute Qualifiers: Encounter type: initial encounter Laterality: left Qualified Code(s): S72.452A - Displaced supracondylar fracture without intracondylar extension of lower end of left femur, initial encounter for closed fracture (2) Anika-prosthetic fracture around prosthetic knee: Status: Acute Qualifiers: Encounter type: initial encounter Laterality: left Qualified Code(s): M97.12XA - Periprosthetic fracture around internal prosthetic left knee joint, initial encounter Additional A&P Information s/p ORIF Left periprosthetic femur fx of knee continue current tx Attestations Medical Necessity Statement*: Continues to require inpatient management medically. Coding Level of Care Code Acute Clutch Rebuilder for [facility] Diagnoses Closed supracondylar fracture of femur S72.452A Encounter type: initial encounter Laterality: left Anika-prosthetic fracture around prosthetic knee M97.12XA Encounter type: initial encounter Laterality: left
[2020-04-11 15:47] VITALS: BP 132/77; PULSE 78; RESP 20; TEMP 36.2; O2SAT 94
[2020-04-11 16:47] LABS: Glucose Point of Care 226 mg/dL (70-110)
[2020-04-11] MEDS: acetaminophen 500 mg Tablet 1000 MG PO (17:25)
[2020-04-11 19:51] VITALS: BP 130/77; PULSE 81; RESP 18; TEMP 36.5; O2SAT 96
[2020-04-11 20:27] LABS: Glucose Point of Care 232 mg/dL (70-110)
[2020-04-11] MEDS: ARIPiprazole 10 mg Tablet 5 MG PO (21:40)
[2020-04-11 23:43] VITALS: BP 127/79; PULSE 82; RESP 18; TEMP 36.7; O2SAT 95
[2020-04-12 02:31] LABS: Basophils # 0.1 10^3/uL (0.0-0.1); Basophils % 1.1 %; Eosinophils # 0.2 10^3/uL (0.0-0.8); Eosinophils % 3.6 %; Hematocrit 28.9 % (42.0-52.0); Lymphocytes # 1.2 10^3/uL (0.8-4.8); Lymphocytes % 27.7 %; Mean Corpuscular HGB Conc 31.1 g/dL (30.0-36.0); Mean Corpuscular Hemoglobin 25.9 pg (28.0-34.0); Mean Corpuscular Volume 83.3 fL (80-94); Mean Platelet Volume 11.3 fL (7.4-10.4); Monocytes # 0.5 10^3/uL (0.2-0.9); Monocytes % 10.9 %; Neutrophils # 2.52 10^3/uL (1.8-7.7); Neutrophils % 56.3 %; Nucleated Red Blood Cells % 0 %; Platelet Count 131 10^3/cmm (130-400); Red Blood Count 3.47 10^6/uL (4.1-5.3); Red Cell Distribution Width 17.3 % (12.1-15.1); White Blood Count 4.5 10^3/uL (4.0-10.0)
[2020-04-12 02:51] LABS: Alanine Aminotransferase 19 U/L (0-41); Albumin Level 2.9 g/dL (3.5-5.2); Alkaline Phosphatase 190 IU/L (40-130); Anion Gap 10.8 (5-19); Aspartate Amino Transferase 32 U/L (0-40); Blood Urea Nitrogen 15 mg/dL (6-20); Calcium 8.4 mg/dL (8.5-10.5); Carbon Dioxide 31 mmol/L (22-29); Chloride 99 mmol/L (98-107); Globulin 3.3 g/dL (1.3-4.6); Glucose 98 mg/dL (65-115); Osmolality Calculated 285 mOsm/kg (285-295); Potassium 3.8 mmol/L (3.5-5.1); Sodium 137 mmol/L (136-145); Total Bilirubin 0.7 mg/dL (0.15-1.2); Total Protein 6.2 g/dL (6.6-8.7)
[2020-04-12 04:51] VITALS: BP 129/79; PULSE 79; RESP 18; TEMP 36.5; O2SAT 95
--- NOTE | 2020-04-12 05:38 | NUR.SHIFT ---
Patient had slept for most of the night. Patient has good pulses and feeling in the left Lower extremity. Patient was having muscle spasms at the beginning of shift, which was alleviated by Valium per jun. Patient's pain was well controlled by the use on one hydrocodone per jun.
[2020-04-12 06:41] LABS: Glucose Point of Care 157 mg/dL (70-110)
[2020-04-12 07:40] VITALS: BP 152/80; PULSE 80; RESP 18; TEMP 36.4; O2SAT 97
[2020-04-12] MEDS: acetaminophen 500 mg Tablet 1000 MG PO (07:46)
[2020-04-12] MEDS: insulin glargine 100 units/1 mL 55 UNIT SUBCUT ×2 (08:52→21:31)
[2020-04-12] MEDS: gabapentin 300 mg Capsule 600 MG PO ×3 (08:53→21:03)
[2020-04-12] MEDS: ferrous gluconate 324 mg Tablet PO ×2 (08:53→18:23)
[2020-04-12] MEDS: FUROsemide 40 mg Tablet PO ×2 (08:53→18:23)
[2020-04-12] MEDS: sertraline 100 mg Tablet PO (08:53)
[2020-04-12] MEDS: amlodipine 10 mg Tablet PO (08:53)
[2020-04-12] MEDS: ropinirole 1 mg Tablet PO ×2 (08:53→21:05)
[2020-04-12] MEDS: famotidine 20 mg Tablet PO ×2 (08:53→18:23)
[2020-04-12] MEDS: docusate sodium 100 mg Capsule PO ×2 (08:53→18:23)
[2020-04-12] MEDS: spironolactone 25 mg Tablet PO (08:53)
[2020-04-12] MEDS: multivitamin therapeutic Tablet 1 TAB PO (08:53)
[2020-04-12] MEDS: CELEcoxib 200 mg Capsule PO ×2 (08:53→18:24)
[2020-04-12] MEDS: hyDROXYzine 25 mg Capsule PO ×3 (08:54→21:04)
[2020-04-12] MEDS: apixaban 5 mg Tablet PO ×2 (08:54→18:24)
[2020-04-12] MEDS: carvedilol 6.25 mg Tablet PO ×2 (08:54→21:03)
--- NOTE | 2020-04-12 09:08 | PC.CHAP ---
Pastoral Care Encounter/Spiritual Assessment Type of Contact [] Declined internet systems administrator visit [] Patient/Family/Request visit [] Outpatient visit [] Follow-up visit [] Physician referral [] Code/Alert [] Routine visit [] Staff referral [] Actively dying [] Patient sleeping [] Family support [] [] Out of room [] Palliative care [] [] Receiving care in room [] Pre-surgical visit [] Trauma [] Long length of stay [] ICU visit [] Other: Relational/Emotional Strength [] Patient feels connected with others/family/visitors/staff [] Distress [] Loneliness/isolation [] Abandonment Spirituality of Patient [x] Person of Sara [] Attends Pentecostal of their Sara [] Believes in Prayer [] Reads Bible or Scientology materials [] There are Spiritual issues to be addressed Non Licensed Nuclear Equipment Operator Interventions [x] Prayer [] Active listening [] Non-anxious presence [] Spiritual/emotional support [] Crisis/trauma care [] Spiritual counseling [] Bereavement support [] Provided bereavement packet [] Provided Bible/devotional materials [] Provided toy/stuffed animal, coloring book to patient or family member [] Provided Communion [] Anointing/[place] [] Salvation [x] Completed spiritual assessment [] Other: Impact on Illness or Injury [] Angry [] Fearful [] Anxious [] Often cries [] Exhaustion [] Unable to work [] Unable to attend holiness [] Unable to walk/stand [] Unable to read [] Unable to drive [] Unable to eat/drink [] Unable to sleep [] Unable to be with family [] Patient intubated [] Other: Summary patient feeling better want to go0 to [facility] Time spent with patient
[2020-04-12] MEDS: HYDROcodone-acetaminophen 5-325 mg Tablet 1 TAB PO ×2 (10:03→21:13)
[2020-04-12] MEDS: diazePAM 5 mg Tablet PO ×2 (10:04→21:13)
--- NOTE | 2020-04-12 10:22 | PM.PN ---
Subjective Subjective: Interval history: This morning patient was seen getting up out of bed, with the help of physical therapy, tells me that he finally had a good breakfast, unfortunately was not brought any coffee, has no particular complaints this morning Medications: Reviewed: Yes Vitals/I&O/Wt Last Vital Signs Temp 97.5 F L 04/12/20 07:40 Pulse 80 04/12/20 07:40 Resp 18 04/12/20 07:40 BP 152/80 04/12/20 07:40 Pulse Ox 97 04/12/20 07:40 04/11/20 04/12/20 04/12/20 22:59 06:59 14:59 Intake Total 480 / 1560 Output Total 825 / 1875 2250 / 4125 Balance -345 / -315 -2250 / -2565 Weight last 48 hrs Weight 147.1 kg Weight 144.696 kg Physical Exam Const: COMMON NORMALS: no acute distress and patient oriented x3 HENMT: COMMON NORMALS: normocephalic HEAD & SCALP: normocephalic Neck/C-Spine: COMMON NORMALS: no JVD Resp: COMMON NORMALS: normal respiratory effort, No retractions, No use of accessory muscles and clear to auscultation bilaterally AUSCULTATION: clear to auscultation bilaterally Cardio: COMMON NORMALS: no JVD, regular rate, regular rhythm, S1 normal heart sound present and S2 normal heart sound present RATE: regular rate RHYTHM: regular rhythm HEART SOUNDS: S1 normal heart sound present and S2 normal heart sound present GI: COMMON NORMALS: Normal to inspection, nondistended, normoactive bowel sounds present, Soft to palpation, non-tender, No hepatosplenomegaly present, no masses and no bruits PALPATION: Yes Soft to palpation and Yes No hepatosplenomegaly present Extremity: COMMON NORMALS: capillary refill normal, no clubbing, cyanosis or edema, no calf tenderness and no pedal edema NARRATIVE EXTREMITY EXAM: Left leg in immobilizer Neuro: COMMON NORMALS: patient oriented x3 Psych: COMMON NORMALS: mental status grossly normal Urinary Catheter Management^: Ingram: Cath Placed During This Visit: yes, but has since been removed by the nurse Urinary Catheter Date of Insertion: 04/08/20 Urinary Catheter Time of Insertion: 11:45 Date Urinary Catheter Removed: 04/08/20 Time Urinary Catheter Discontinued: 13:54 Data : 04/12/20 02:06 04/12/20 02:06 Micro: Microbiology 04/06/20 19:45 Blood Culture - Final Blood NO GROWTH AFTER 5 DAYS 04/06/20 19:25 Blood Culture - Preliminary Blood Gram positive maynor A&P Assessment and plan (1) Fall: Status: Acute (2) Fracture of femur: Status: Acute Qualifiers: Encounter type: initial encounter Femur location: distal, unspecified portion Fracture morphology: unspecified fracture morphology Fracture type: closed Laterality: left Qualified Code(s): S72.402A - Unspecified fracture of lower end of left femur, initial encounter for closed fracture (3) Atrial fibrillation: Status: Acute Qualifiers: Atrial fibrillation type: unspecified chronic Qualified Code(s): I48.20 - Chronic atrial fibrillation, unspecified (4) Congestive heart failure: Status: Acute Qualifiers: Heart failure type: unspecified Heart failure chronicity: chronic Qualified Code(s): I50.9 - Heart failure, unspecified (5) Hypertension: Status: Acute Qualifiers: Hypertension type: essential hypertension Qualified Code(s): I10 - Essential (primary) hypertension (6) Diabetes: Status: Acute Qualifiers: Diabetes mellitus complication status: with hyperglycemia Diabetes mellitus terminal operations supervisor insulin use: with care home use Diabetes mellitus type: type 2 Qualified Code(s): E11.65 - Type 2 diabetes mellitus with hyperglycemia; Z79.4 - custodial (current) use of insulin (7) Anxiety: Status: Acute (8) S/P total knee arthroplasty: Status: Acute Qualifiers: Laterality: left Qualified Code(s): Z96.652 - Presence of left artificial knee joint (9) COVID-19: Status: Acute Additional A&P Information 54-year-old man with past medical history of atrial fibrillation, congestive heart failure type 2 diabetes mellitus, recent COVID-19 presents after having a fall and found to have left femoral fracture. Fall: Mechanical as he twisted his ankles while walking on the rocks. Left fracture femur: Postop day 4 Anticoagulation, physical therapy, perioperative antibiotics, weightbearing as per orthopedics. Continue [place] 5 1 tab every 6 hours as needed along with celecoxib for pain. Hemoglobin 9.0 today. Mildly low since yesterday. We will continue to monitor. No active signs of bleeding. Atrial fibrillation: Rate controlled at present. Continue home dose of carvedilol. Telemetry monitoring. Restart Eliquis at home dose. Congestive heart failure: Euvolemic at present. Patient takes forsemide 40 mg twice daily, spironolactone 25 mg daily at home. Continues with home doses of medication. Last echocardiogram from April 2019 shows an EF 55% with grade 2 diastolic dysfunction with mildly dilated LA. Hypertension: Known goal blood pressure less than 140/90 Hg. For now continue with home dose of amlodipine. We will continue to monitor blood pressures. Type 2 diabetes mellitus: Continue with home dose of Lantus 55 units twice daily. Continue with insulin sliding scale moderate dose protocol. Will monitor insulin requirements in next 24 hours and if needed will increase Lantus accordingly. HbA1c 9.3. Anemia: Baseline hemoglobin around 11. 9.0 today We will continue to monitor. Repeat hemoglobin afternoon. Transfuse if hemoglobin falls below 8 because of history of congestive heart failure and atrial fibrillation. Continue with monitoring hemoglobin daily for now. COVID-19: Tested positive in December. Has finished his quarantine. Asymptomatic at present. Chest x-ray. COVID-19 PCR has been sent from the ER. For now isolation precautions. Anxiety: Continue with home dose of and baseline, Zoloft. Continue other chronic medication like hydroxyzine, gabapentin, Requip Pancytopenia, white blood cell count 3.7, hemoglobin 9.0, platelet count 121 likely secondary to fall, postsurgical, continue to monitor for fevers Full code. Carb consistent cardiac diet. Eliquis for DVT prophylaxis Discharge planning: Unfortunately placement to long-term at this point is difficult, patient tells caseworkers that he thinks he has Blue Cross Blue Shield is not valid as he has not paid his bills in some time. In addition patient owes money to a local long-term. Were trying [facility] long-term at this point. But if all else fails, the only reasonable option would be for patient to go home with home health care Plan for today, awaiting long-term placement, continue PT OT, aggressive pulmonary toilet Attestations Medical Necessity Statement*: Patient requires hospitalization for fall, status post fracture repair, awaiting long-term placement Coding Level of Care Code Acute Manager Trade for [facility] Diagnoses Fall W19.XXXA Fracture of femur S72.402A Encounter type: initial encounter Femur location: distal, unspecified portion Fracture morphology: unspecified fracture morphology Fracture type: closed Laterality: left Atrial fibrillation I48.20 Atrial fibrillation type: unspecified chronic Congestive heart failure I50.9 Heart failure type: unspecified Heart failure chronicity: chronic Hypertension I10 Hypertension type: essential hypertension Diabetes E11.65; Z79.4 Diabetes mellitus complication status: with hyperglycemia Diabetes mellitus terminal operations supervisor insulin use: with terminal operations supervisor use Diabetes mellitus type: type 2 Anxiety F41.9 S/P total knee arthroplasty Z96.652 Laterality: left COVID-19 U07.1
[2020-04-12 12:00] VITALS: BP 126/78; PULSE 74; RESP 18; TEMP 36.6; O2SAT 96
[2020-04-12 12:37] LABS: Glucose Point of Care 199 mg/dL (70-110)
[2020-04-12 16:00] VITALS: BP 151/83; PULSE 75; RESP 18; TEMP 36.2; O2SAT 96
--- NOTE | 2020-04-12 16:11 | PM.PN ---
Subjective Subjective: Interval history: Patient is working with physical therapy. He does not complain of significant pain in his knee at the present time. We are still attempting placement with senior living, however, secondary to insurance concerns, he may have to be discharged home with home health. He understands the importance of nonweightbearing. Medications: Reviewed: Yes Vitals/I&O/Wt Last Vital Signs Temp 97.8 F 04/12/20 12:00 Pulse 74 04/12/20 12:00 Resp 18 04/12/20 12:00 BP 126/78 04/12/20 12:00 Pulse Ox 96 04/12/20 12:00 04/12/20 04/12/20 04/12/20 06:59 14:59 22:59 Output Total 2250 / 4125 500 / 500 Balance -2250 / -2565 -500 / -500 Weight last 48 hrs Weight 324 lb 4.8 oz Weight 319 lb Physical Exam Const: COMMON NORMALS: no acute distress, average body habitus, patient oriented x3 and alert GENERAL APPEARANCE: cooperative and comfortable ORIENTATION/CONSCIOUSNESS: Yes awake HENMT: COMMON NORMALS: normocephalic and atraumatic HEAD & SCALP: normocephalic and atraumatic Eye: GENERAL EYE: appearance normal, both eyes and all related structures Chest: COMMONS NORMALS: normal inspection of the chest Resp: COMMON NORMALS: normal respiratory effort EFFORT & INSPECTION: Yes able to speak in complete sentences and Yes symmetric chest movement Extremity: LEFT LOWER EXTREMITY: Yes knee joint Left knee: Yes inspection (Dressing is removed. His wound is benign.), Yes palpation (Minimal tenderness), Yes ROM (Not evaluated.) and Yes neurovascular exam (Intact distally with no evidence of DVT) Neuro: COMMON NORMALS: patient oriented x3 SENSORIUM/ORIENTATION: Yes alert GAIT: Yes Unable to assess gait (Secondary to fracture) Psych: COMMON NORMALS: mental status grossly normal APPEARANCE: Yes grossly normal ATTITUDE: Yes calm and Yes engaged ATTENTION/CONCENTRATION: Yes attention grossly intact Skin: COMMON NORMALS: no rashes or lesions noted GENERAL SKIN EXAM: no rashes or lesions noted Urinary Catheter Management^: Ingram: Cath Placed During This Visit: yes, but has since been removed by the nurse Urinary Catheter Date of Insertion: 04/08/20 Urinary Catheter Time of Insertion: 11:45 Date Urinary Catheter Removed: 04/08/20 Time Urinary Catheter Discontinued: 13:54 Data : 04/12/20 02:06 04/12/20 02:06 Micro: Microbiology 04/06/20 19:45 Blood Culture - Final Blood NO GROWTH AFTER 5 DAYS 04/06/20 19:25 Blood Culture - Preliminary Blood Gram positive maynor A&P Assessment and plan (1) Closed supracondylar fracture of femur: This gentleman is well-known to me following total knee arthroplasty in December of this year. The patient had a fall directly onto his total knee arthroplasty when he was unable to maintain footing in pile of 3 inch rocks. He was admitted through the emergency department with a periprosthetic supracondylar left femur fracture. The patient was admitted to the medical service secondary to multiple medical comorbidities. Surgery was accomplished on the afternoon of April 08 following medical evaluation and treatment. Following the surgical procedure, the patient was placed back on Eliquis as an anticoagulant. The severity of his fracture was explained to him in detail. He understands that he is to be nonweightbearing on this extremity and the reasons why. The patient does not feel that he will be able to function at home independently, and I am concerned as well as he must maintain strict nonweightbearing. He will likely require senior living for postoperative rehabilitation if possible. Status: Acute Qualifiers: Encounter type: initial encounter Laterality: left Qualified Code(s): S72.452A - Displaced supracondylar fracture without intracondylar extension of lower end of left femur, initial encounter for closed fracture (2) Anika-prosthetic fracture around prosthetic knee: Status: Acute Qualifiers: Encounter type: initial encounter Laterality: left Qualified Code(s): M97.12XA - Periprosthetic fracture around internal prosthetic left knee joint, initial encounter Additional A&P Information s/p ORIF Left periprosthetic femur fx of knee continue current tx Attestations Medical Necessity Statement*: Continue to await placement Coding Level of Care Code Acute 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
[2020-04-12 18:02] LABS: Glucose Point of Care 218 mg/dL (70-110)
[2020-04-12 20:25] VITALS: BP 145/80; PULSE 81; RESP 18; TEMP 36.6; O2SAT 94
[2020-04-12] MEDS: ARIPiprazole 10 mg Tablet 5 MG PO (21:02)
[2020-04-12 21:09] LABS: Glucose Point of Care 256 mg/dL (70-110)
[2020-04-13 00:28] VITALS: BP 111/71; PULSE 73; RESP 17; TEMP 36.4; O2SAT 94
[2020-04-13 02:33] LABS: Basophils % 0.9 %; Eosinophils # 0.2 10^3/uL (0.0-0.8); Eosinophils % 3.4 %; Hematocrit 31.2 % (42.0-52.0); Hemoglobin 9.1 g/dL (11.7-16.6); Lymphocytes # 1.2 10^3/uL (0.8-4.8); Mean Corpuscular HGB Conc 29.2 g/dL (30.0-36.0); Mean Corpuscular Hemoglobin 25.3 pg (28.0-34.0); Mean Corpuscular Volume 86.7 fL (80-94); Mean Platelet Volume 11.8 fL (7.4-10.4); Monocytes # 0.6 10^3/uL (0.2-0.9); Monocytes % 12.7 %; Neutrophils # 2.63 10^3/uL (1.8-7.7); Neutrophils % 56.6 %; Nucleated Red Blood Cells % 0 %; Platelet Count 125 10^3/cmm (130-400); Red Cell Distribution Width 17.6 % (12.1-15.1); White Blood Count 4.7 10^3/uL (4.0-10.0)
[2020-04-13 02:58] LABS: Alanine Aminotransferase 18 U/L (0-41); Albumin Level 2.7 g/dL (3.5-5.2); Alkaline Phosphatase 191 IU/L (40-130); Aspartate Amino Transferase 35 U/L (0-40); Blood Urea Nitrogen 13 mg/dL (6-20); Calcium 8.4 mg/dL (8.5-10.5); Carbon Dioxide 31 mmol/L (22-29); Chloride 98 mmol/L (98-107); Globulin 3.4 g/dL (1.3-4.6); Glomerular Filtration Rate 101.1 mL/min (90-130); Glucose 118 mg/dL (65-115); Magnesium 1.9 mg/dL (1.7-2.3); Osmolality Calculated 285 mOsm/kg (285-295); Phosphorus 4.1 mg/dL (2.5-4.5); Sodium 137 mmol/L (136-145); Total Bilirubin 0.6 mg/dL (0.15-1.2); Total Protein 6.1 g/dL (6.6-8.7)
[2020-04-13] MEDS: acetaminophen 500 mg Tablet 1000 MG PO ×3 (02:59→17:45)
[2020-04-13 03:00] LABS: Anion Gap 11.8 (5-19); Potassium 3.8 mmol/L (3.5-5.1)
[2020-04-13 05:46] VITALS: BP 123/71; PULSE 69; RESP 18; TEMP 36.4; O2SAT 95
[2020-04-13 06:44] LABS: Glucose Point of Care 112 mg/dL (70-110)
[2020-04-13 08:00] VITALS: BP 139/88; PULSE 72; RESP 16; TEMP 36.5; O2SAT 95
[2020-04-13] MEDS: carvedilol 6.25 mg Tablet PO ×2 (08:05→22:10)
[2020-04-13] MEDS: ropinirole 1 mg Tablet PO ×2 (08:05→21:19)
[2020-04-13] MEDS: insulin glargine 100 units/1 mL 55 UNIT SUBCUT ×2 (08:05→21:18)
[2020-04-13] MEDS: sertraline 100 mg Tablet PO (08:05)
[2020-04-13] MEDS: CELEcoxib 200 mg Capsule PO ×2 (08:06→17:45)
[2020-04-13] MEDS: docusate sodium 100 mg Capsule PO ×2 (08:06→17:45)
[2020-04-13] MEDS: apixaban 5 mg Tablet PO ×2 (08:06→17:45)
[2020-04-13] MEDS: spironolactone 25 mg Tablet PO ×2 (08:06→09:15)
[2020-04-13] MEDS: amlodipine 10 mg Tablet PO (08:06)
[2020-04-13] MEDS: hyDROXYzine 25 mg Capsule PO ×3 (08:06→21:20)
[2020-04-13] MEDS: FUROsemide 40 mg Tablet PO ×2 (08:06→17:45)
[2020-04-13] MEDS: multivitamin therapeutic Tablet 1 TAB PO (08:06)
[2020-04-13] MEDS: ferrous gluconate 324 mg Tablet PO ×2 (08:06→17:45)
[2020-04-13] MEDS: gabapentin 300 mg Capsule 600 MG PO ×3 (08:06→21:20)
[2020-04-13] MEDS: famotidine 20 mg Tablet PO ×2 (08:06→17:45)
[2020-04-13] MEDS: HYDROcodone-acetaminophen 5-325 mg Tablet 1 TAB PO ×2 (10:52→21:22)
--- NOTE | 2020-04-13 10:54 | P.PN_ITS ---
Subjective Subjective: Interval history: Patient was seen this morning, he is a bit frustrated about being here in the hospital, he tells me that currently he does not have a good home situation, he has rented a room from a local friend, who cannot accommodate him anymore, he does not know where he can go, is still awaiting senior living placement, is quite anxious about this he has been here fo r almost a week, is working with physical therapy Medications: Reviewed: Yes Vitals/I&O/Wt Last Vital Signs Temp 97.7 F 04/13/20 08:00 Pulse 72 04/13/20 08:00 Resp 16 04/13/20 08:00 BP 139/88 04/13/20 08:00 Pulse Ox 95 04/13/20 08:00 04/12/20 04/13/20 04/13/20 22:59 06:59 14:59 Intake Total 240 / 240 Output Total 750 / 1250 1300 / 2550 1375 / 1375 Balance -510 / -1010 -1300 / -2310 -1375 / -1375 Weight last 48 hrs Weight 145.966 kg Weight 147.1 kg Physical Exam Const: COMMON NORMALS: no acute distress and patient oriented x3 HENMT: COMMON NORMALS: normocephalic HEAD & SCALP: normocephalic Neck/C-Spine: COMMON NORMALS: no JVD Resp: COMMON NORMALS: normal respiratory effort, No retractions, No use of accessory muscles and clear to auscultation bilaterally AUSCULTATION: clear to auscultation bilaterally Cardio: COMMON NORMALS: no JVD, regular rate, regular rhythm, S1 normal heart sound present and S2 normal heart sound present RATE: regular rate RHYTHM: regular rhythm HEART SOUNDS: S1 normal heart sound present and S2 normal heart sound present GI: COMMON NORMALS: Normal to inspection, nondistended, normoactive bowel sounds present, Soft to palpation, non-tender, No hepatosplenomegaly present, no masses and no bruits PALPATION: Yes Soft to palpation and Yes No hepatosplenomegaly present Extremity: COMMON NORMALS: capillary refill normal, no clubbing, cyanosis or edema, no calf tenderness and no pedal edema NARRATIVE EXTREMITY EXAM: Left leg in immobilizer Neuro: COMMON NORMALS: patient oriented x3 Psych: COMMON NORMALS: mental status grossly normal Urinary Catheter Management^: Ingram: Cath Placed During This Visit: yes, but has since been removed by the nurse Urinary Catheter Date of Insertion: 04/08/20 Urinary Catheter Time of Insertion: 11:45 Date Urinary Catheter Removed: 04/08/20 Time Urinary Catheter Discontinued: 13:54 Data : 04/13/20 01:50 04/13/20 01:50 A&P Assessment and plan (1) Fall: Status: Acute (2) Fracture of femur: Status: Acute Qualifiers: Encounter type: initial encounter Femur location: distal, unspecified portion Fracture morphology: unspecified fracture morphology Fracture type: closed Laterality: left Qualified Code(s): S72.402A - Unspecified fracture of lower end of left femur, initial encounter for closed fracture (3) Atrial fibrillation: Status: Acute Qualifiers: Atrial fibrillation type: unspecified chronic Qualified Code(s): I48.20 - Chronic atrial fibrillation, unspecified (4) Congestive heart failure: Status: Acute Qualifiers: Heart failure type: unspecified Heart failure chronicity: chronic Qualified Code(s): I50.9 - Heart failure, unspecified (5) Hypertension: Status: Acute Qualifiers: Hypertension type: essential hypertension Qualified Code(s): I10 - Essential (primary) hypertension (6) Diabetes: Status: Acute Qualifiers: Diabetes mellitus complication status: with hyperglycemia Diabetes mellitus correction insulin use: with correction use Diabetes mellitus type: type 2 Qualified Code(s): E11.65 - Type 2 diabetes mellitus with hyperglycemia; Z79.4 - MCFP (current) use of insulin (7) Anxiety: Status: Acute (8) S/P total knee arthroplasty: Status: Acute Qualifiers: Laterality: left Qualified Code(s): Z96.652 - Presence of left artificial knee joint (9) COVID-19: Status: Acute Additional A&P Information 54-year-old man with past medical history of atrial fibrillation, congestive heart failure type 2 diabetes mellitus, recent COVID-19 presents after having a fall and found to have left femoral fracture. Fall: Mechanical as he twisted his ankles while walking on the rocks. Left fracture femur: Postop day 5 Anticoagulation, physical therapy, perioperative antibiotics, weightbearing as per orthopedics. Continue [place] 5 1 tab every 6 hours as needed along with celecoxib for pain. Hemoglobin 9.0 today. Mildly low since yesterday. We will continue to monitor. No active signs of bleeding. Atrial fibrillation: Rate controlled at present. Continue home dose of carvedilol. Telemetry monitoring. On home Eliquis Congestive heart failure: Euvolemic at present. Patient takes forsemide 40 mg twice daily, spironolactone 25 mg daily at home. Continues with home doses of medication. Last echocardiogram from April 2019 shows an EF 55% with grade 2 diastolic dysfunction with mildly dilated LA. Hypertension: Known goal blood pressure less than 140/90 Hg. For now continue with home dose of amlodipine. We will continue to monitor blood pressures. Type 2 diabetes mellitus: Continue with home dose of Lantus 55 units twice daily. Continue with insulin sliding scale moderate dose protocol. Will monitor insulin requirements in next 24 hours and if needed will increase Lantus accordingly. HbA1c 9.3. Anemia: Baseline hemoglobin around 11. 9.0 today We will continue to monitor. Repeat hemoglobin afternoon. Transfuse if hemoglobin falls below 8 because of history of congestive heart failure and atrial fibrillation. Continue with monitoring hemoglobin daily for now. COVID-19: Tested positive in December. Has finished his quarantine. Asymptomatic at present. Chest x-ray. COVID-19 PCR has been sent from the ER. For now isolation precautions. Anxiety: Continue with home dose of and baseline, Zoloft. Continue other chronic medication like hydroxyzine, gabapentin, Requip Pancytopenia, white blood cell count 4.7, hemoglobin 9.1, platelet count 125 likely secondary to fall, postsurgical, continue to monitor for fevers Full code. Carb consistent cardiac diet. Eliquis for DVT prophylaxis Discharge planning: Unfortunately placement to senior living at this point is difficult, patient tells caseworkers that he thinks he has Blue Cross Blue Shield is not valid as he has not paid his bills in some time. In addition patient owes money to a local senior living. Were trying [facility] senior living at this point. 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 [facility] Diagnoses Fall W19.XXXA Fracture of femur S72.402A Encounter type: initial encounter Femur location: distal, unspecified portion Fracture morphology: unspecified fracture morphology Fracture type: closed Laterality: left Atrial fibrillation I48.20 Atrial fibrillation type: unspecified chronic Congestive heart failure I50.9 Heart failure type: unspecified Heart failure chronicity: chronic Hypertension I10 Hypertension type: essential hypertension Diabetes E11.65; Z79.4 Diabetes mellitus complication status: with hyperglycemia 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
--- NOTE | 2020-04-13 11:17 | PM.PN ---
Subjective Subjective: Interval history: The patient continues to work with physical therapy. We are also working on discharge placement. Medications: Reviewed: Yes Vitals/I&O/Wt Last Vital Signs Temp 97.7 F 04/13/20 08:00 Pulse 72 04/13/20 08:00 Resp 16 04/13/20 08:00 BP 139/88 04/13/20 08:00 Pulse Ox 95 04/13/20 08:00 04/12/20 04/13/20 04/13/20 22:59 06:59 14:59 Intake Total 240 / 240 Output Total 750 / 1250 1300 / 2550 1375 / 1375 Balance -510 / -1010 -1300 / -2310 -1375 / -1375 Weight last 48 hrs Weight 321 lb 12.8 oz Weight 324 lb 4.8 oz Physical Exam Const: COMMON NORMALS: no acute distress, average body habitus, patient oriented x3 and alert GENERAL APPEARANCE: cooperative and comfortable ORIENTATION/CONSCIOUSNESS: Yes awake HENMT: COMMON NORMALS: normocephalic and atraumatic HEAD & SCALP: normocephalic and atraumatic Eye: GENERAL EYE: appearance normal, both eyes and all related structures Chest: COMMONS NORMALS: normal inspection of the chest Resp: COMMON NORMALS: normal respiratory effort EFFORT & INSPECTION: Yes able to speak in complete sentences and Yes symmetric chest movement Extremity: LEFT LOWER EXTREMITY: Yes knee joint Left knee: Yes inspection (Incision remains benign), Yes palpation (Minimal to no tenderness to palpation) and Yes neurovascular exam (Intact) Neuro: COMMON NORMALS: patient oriented x3 SENSORIUM/ORIENTATION: Yes alert GAIT: Yes Unable to assess gait (Secondary to fracture) Psych: COMMON NORMALS: mental status grossly normal APPEARANCE: Yes grossly normal ATTITUDE: Yes calm and Yes engaged ATTENTION/CONCENTRATION: Yes attention grossly intact Skin: COMMON NORMALS: no rashes or lesions noted GENERAL SKIN EXAM: no rashes or lesions noted Urinary Catheter Management^: Ingram: Cath Placed During This Visit: yes, but has since been removed by the nurse Urinary Catheter Date of Insertion: 04/08/20 Urinary Catheter Time of Insertion: 11:45 Date Urinary Catheter Removed: 04/08/20 Time Urinary Catheter Discontinued: 13:54 Data : 04/13/20 01:50 04/13/20 01:50 A&P Assessment and plan (1) Closed supracondylar fracture of femur: This gentleman is well-known to me following total knee arthroplasty in December of this year. The patient had a fall directly onto his total knee arthroplasty when he was unable to maintain footing in pile of 3 inch rocks. He was admitted through the emergency department with a periprosthetic supracondylar left femur fracture. The patient was admitted to the medical service secondary to multiple medical comorbidities. Surgery was accomplished on the afternoon of April 08 following medical evaluation and treatment. Following the surgical procedure, the patient was placed back on Eliquis as an anticoagulant. The severity of his fracture was explained to him in detail. He understands that he is to be nonweightbearing on this extremity and the reasons why. The patient does not feel that he will be able to function at home independently, and I am concerned as well as he must maintain strict nonweightbearing. Discharge options are being discussed with the patient at length. He is refusing to go to a long term at this time. He notes he is applying for Medicaid. Status: Acute Qualifiers: Encounter type: initial encounter Laterality: left Qualified Code(s): S72.452A - Displaced supracondylar fracture without intracondylar extension of lower end of left femur, initial encounter for closed fracture (2) Anika-prosthetic fracture around prosthetic knee: Status: Acute Qualifiers: Encounter type: initial encounter Laterality: left Qualified Code(s): M97.12XA - Periprosthetic fracture around internal prosthetic left knee joint, initial encounter Additional A&P Information s/p ORIF Left periprosthetic femur fx of knee continue current tx Attestations Medical Necessity Statement*: Awaiting safe discharge plan. 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
--- NOTE | 2020-04-13 11:18 | PC.OT ---
OT TREATMENT ATTEMPTED. PATIENT DECLINES TREATMENT THIS A.M.
[2020-04-13 11:38] VITALS: BP 130/79; PULSE 79; RESP 16; TEMP 36.5; O2SAT 95
[2020-04-13 12:48] LABS: Glucose Point of Care 269 mg/dL (70-110)
--- NOTE | 2020-04-13 15:38 | PC.OT ---
OT NOTE: OT TREATMENT ATTEMPTED AGAIN THIS P.M. IS AGREEABLE TO WASH FACE BUT DECLINES ANY FURTHER ATTEMPT FOR GROOMING OR SPONGE BATH. DECLINES UE EXERCISES HE STATES THAT P.T. DID THAT WITH HIM EARLIER AND HE IS SORE. WILL ATTEMPT AGAIN TOMORROW.
--- NOTE | 2020-04-13 15:46 | PC.NURSE ---
SUICIDAL PATIENT CALLED THIS NURSE INTO THE ROOM AND STATED HE NEEDED TO TALK TO SOMEONE. THIS NURSE ASKED WHAT HE NEEDED TO TALK ABOUT SO I COULD FIND THE RIGHT PERSON. PATIENT THEN STATED THAT IF WE DISCHARGE HIM HE WILL HAVE NOWHERE TO GO AND WILL PROBABLY JUST END IT . THIS NURSE PROCEEDED TO FILL OUT A SUICIDE ASSESSMENT AND CONTACT DR. AVALOS. PATIENT PLACED ON SUICIDE PRECAUTIONS WITH A 1:1 SITTER. PATIENT ALSO TOLD THIS NURSE HE HAS BEEN ON A 96 HOUR HOLD TWICE WITHIN THE PAST FEW MONTHS AND HE ALSO DEALS WITH ALCOHOLISM. DR. AVALOS WAS INFORMED OF ALL OF THIS AND DR. SEPULVEDA WAS CONSULTED.
[2020-04-13] MEDS: CLONazepam 0.5 mg Tablet PO ×2 (15:55→23:55)
[2020-04-13 16:00] VITALS: BP 144/80; PULSE 76; RESP 16; TEMP 36.8; O2SAT 96
[2020-04-13 17:05] LABS: Glucose Point of Care 231 mg/dL (70-110)
--- NOTE | 2020-04-13 17:40 | P.CONIM_ITS ---
Providers/Reason for Consult Consulting Physican/Specialty*: Suresh Martin MD. Psychiatry. Reason for Consult*: Evaluation for safety for discharge. Attending Physician: Norberto Cheng MD Primary Care Provider: Contreras Faustin DO Psych Consult HPI History of Present Illness Chun Webster JR is a 54 year old male who presented to the emergency department with the following report: Chief Complaint: Extremity Injury, Lower Stated Complaint: TWISTED L LEG AFTER FALL WITH DEFORMITY Time Seen by Provider: 04/06/20 16:21 Source: patient and EMS Mode of arrival: EMS Limitations: no limitations History of Present Illness: HPI Narrative: 54-year-old male states he fell over a rock at home just prior to arrival. He states he twisted his left knee. He had knee replacement in December and has severe pain to that knee currently. He does have deformity noted states he was unable to bear weight and is unable to bend it. Denies any ankle or hip pain. He states his pain is much worse when he tries to move and improved with rest. Associated symptoms-after fall: Denies abdominal pain, chest pain or headache(s) He was admitted to the hospital preoperatively for surgery. Surgery was performed and he went to the [facility] unit for postop care and convalescence. Upon attempted discharge, he had limited options and endorsed being suicidal which led to the psychiatric consult to ensure safety for discharge. Chun presented reporting that he had made those statements but that he was primarily focused on not going to the local senior care. He reports that he does not like being in there and he would rather be in his car. He endorsed that he has been taking his medication and that it has been effective. He denied any need for any changes. He reports that things have been tough at a certain level and he is hoping that they get better. He denied that he wanted to kill himself only saying that he did not want to go to the senior care he just wanted them to give him a ride to his car to his car. We reviewed his last inpatient evaluation and excerpt is included below for context. [place]05/[place] [facility] [place] History of Present Illness Chun Webster JR is a 54 year old male who presented to the emergency department with the following report: Chief Complaint: Chest Pain Stated Complaint: chest pain Time Seen by Provider: 03/04/20 04:56 Source: patient and EMS Mode of arrival: EMS Limitations: no limitations History of Present Illness: HPI narrative: Mr. Webster is a nice 54-year-old male who comes in complaining of chest pain that awoke him from sleep. He states that he woke with chest pain described as a sharp pain that did not radiate. He also describes it as a tightness. He states that he noticed that he was sweating profusely upon awakening. He had associated shortness of breath along with nauseousness and he threw up twice. Patient states that the symptoms lasted for about 10 minutes after awakening and slowly dissipated until the resolution. Patient's not had any discomfort or symptoms since. Patient did call EMS who have stated they did not do anything in route as the patient's been asymptomatic since their picking him up. Patient states that he has a history of atrial fibrillation, congestive heart failure and heart attack but he is never received a stent only had a diagnostic heart cath. He states this was performed at [facility] in the past. Patient is currently on Eliquis for his atrial fibrillation. This time the patient states he is pain-free. Patient denies any similar symptoms to this recently. Associated symptoms: Reports diaphoresis, dyspnea, nausea and vomiting; Deny abdominal pain, fever(s), palpitations or syncope. He endorsed suicidal thoughts, and being overwhelmed in addition to the ED report and was admitted to the neuropsychiatric unit for definitive treatment of those issues. Today he presents reporting that this is his second psychiatric hospitalization with the first 1 being about a year ago. He reports that things got bad because his and he were getting a divorce and she took his children. He reports he still has not seen him since last March. He reports that he started getting therapy in [place] as well. He reports that there has been a bad week overall for reasons he did not really get into and reports that yesterday he just felt completely overwhelmed, had bad week turned into a very bad night, he had thoughts that were not good and so that is why he came to the hospital. That chest pain that was reported he has come to proceed has to be anxiety about his circumstances. He denies any history of previous suicide attempts. He denies smoking cigarettes, reports that he drinks alcohol very little but did have some drinking issues in the past, denies marijuana cocaine or any other illicit drug use. He did go to rehab in October 2019 for 42 days after having his 1 and only DUI in May 2019. He reports recently had to have his left knee replaced and has had some difficulty with ambulation. He reports that he was started on Abilify which has been helpful and that overall he feels his current medications are helpful he has had a really bad night has no interest in making any changes after we had a discussion of the risks, b enefits and alternatives of possibly making changes. Psychiatric history: As above. Abuse 3: Above. Family history: He denies mental health or addiction issues or any suicide attempts or complet ions in his biological family. Developmental history: He denies any problems with his mom's with him or or delivery. He reports he learned to walk and talk and met his developmental milestones on time. He reports that once he went to school when he was younger he did not need speech therapy, learning support, emotional support or special education classes. Psychosocial history: He reports his mother and father were together when he was born and that he and his younger sister are the only product of that union. He reports that his childhood was great and he denies any emotional, physical or sexual abuse. 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 He endorses being a heterosexual with his longest relationship being 21 years. He was 3 times and 3 times, he has 2 children a 14-year-old son and 11-year-old daughter. He was in the for 2 months entering the [place] but he had not told the truth about a knee problem he had and so he had a medical discharge. He reports he believes in God. 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 He currently lives in an apartment alone. Legal history: Never been in fci or had significant legal peril. Medical history: Recent left knee surgery, history of cardiac problems like congestive heart failure diabetes hyperlipidemia hypertension and restless leg. Meds Current Medications: Current Medications Generic Name Dose Route Start Last Admin Trade Name Freq PRN Reason Stop Dose Admin Acetaminophen 1,000 mg 04/08/20 15:18 04/14/20 03:20 Acetaminophen 50 0 Mg Tablet PO 1,000 mg Q8H [place] Administration Hydrocodone Bitart /Acetaminophen 1 tab 04/06/20 22:15 04/13/20 21:22 Hydrocodone-Acet aminophen 5-325 Mg Tablet PO 1 tab Q4H PRN Administration MODERATE TO SEVER E PAIN Amlodipine Besylat e 10 mg 04/07/20 09:00 04/13/20 08:06 Amlodipine 10 Mg Tablet PO 10 mg DAILY@09 [place] Administration Apixaban 5 mg 04/09/20 02:28 04/13/20 17:45 Apixaban 5 Mg Ta blet PO 5 mg BID [place] Administration Aripiprazole 5 mg 04/06/20 22:15 04/13/20 21:19 Aripiprazole 10 Mg Tablet PO 5 mg DAILY@ [place] Administration Carvedilol 6.25 mg 04/06/20 22:15 04/13/20 22:10 Carvedilol 6.25 Mg Tablet PO 6.25 mg BID@ [place] Administration Celecoxib 200 mg 04/08/20 18:00 04/13/20 17:45 Celecoxib 200 Mg Capsule PO 200 mg BID [place] Administration Clonazepam 0.5 mg 04/13/20 15:43 04/13/20 23:55 Clonazepam 0.5 M g Tablet PO 0.5 mg BID PRN Administration anxiety Docusate Sodium 100 mg 04/08/20 18:00 04/13/20 17:45 Docusate Sodium 100 Mg Capsule PO 100 mg BID [place] Administration Famotidine 20 mg 04/07/20 09:00 04/13/20 17:45 Famotidine 20 Mg Tablet PO 20 mg BID [place] Administration Ferrous Gluconate 324 mg 04/09/20 18:00 04/13/20 17:45 Ferrous Gluconat e 324 Mg Tablet PO 324 mg BIDWM [place] Administration Furosemide 40 mg 04/07/20 18:00 04/13/20 17:45 Furosemide 40 Mg Tablet PO 40 mg BID [place] Administration Gabapentin 600 mg 04/06/20 22:15 04/13/20 21:20 Gabapentin 300 M g Capsule PO 600 mg TID@ [place] Administration Hydroxyzine Pamoat e 25 mg 04/06/20 22:15 04/13/20 21:20 Hydroxyzine 25 M g Capsule PO 25 mg TID@ [place] Administration Insulin Aspart 0 unit 04/06/20 22:15 04/13/20 21:18 Insulin Aspart 1 00 Unit/1 Ml SUBCUT 6 unit WM&BEDTIME [facility] Administration Protocol Insulin Glargine 55 unit 04/06/20 22:15 04/13/20 21:18 Insulin Glargine 100 Units/1 Ml SUBCUT 55 unit BID@ [facility] Administration Multivitamins Ther apeutic 1 tab 04/07/20 09:00 04/13/20 08:06 Multivitamin The rapeutic Tablet PO 1 tab DAILY@ [facility] Administration Ropinirole HCl 1 mg 04/06/20 22:15 04/13/20 21:19 Ropinirole 1 Mg Tablet PO 1 mg BID@ [facility] Administration Sertraline HCl 100 mg 04/07/20 09:00 04/13/20 08:05 Sertraline 100 M g Tablet PO 100 mg DAILY@ [facility] Administration Spironolactone 50 mg 04/13/20 09:00 04/13/20 09:09 Spironolactone 2 5 Mg Tablet PO Not Given DAILY@ [facility] PFSH NPU PFSH: Medical History Angioedema Atrial fibrillation Congestive heart failure COVID-19 Diabetes Erectile dysfunction Hyperlipidemia Hypertension Neuropathy Psoriasis Restless leg syndrome Surgical History H/O knee surgery Hx of cardiac cath Family History Father Cancer Lung Mother Cancer Brain Other Diabetes Hypertension Social History Smoking and tobacco status: never smoked Alcohol intake: current Alcohol intake frequency: holidays/special occasions only Household members: friend(s) Housing: Apartment Mental Status Exam MSE Comments: This is an obese white male with hospital gown on with adequate mild, grooming and eye contact. No abnormal movements except for mild psychomotor retardation. Cooperative with exam in no acute distress. Speech was normal rate and volume. Mood described as okay, affect slightly subdued. Thought process organized. Thought content: Patient denied any suicidal or homicidal ideation, there were no delusions reported or noted, he denies any auditory or visual hallucinations. Attention and concentration appeared intact and memory appeared reliable but none were formally tested. He is alert and oriented x3. Insight and judgment are improving and impulse control is fair. Vitals/I&O/Wt Last Vital Signs Temp 98.2 F 04/13/20 16:00 Pulse 76. 04/13/20 16:00 Resp 16 04/13/20 16:00 BP 144/80 04/13/20 16:00 Pulse Ox 94 04/13/20 16:00 04/13/20 14:59 Intake Total 480 / 480 Output Total 2650 / 2650 Balance -2170 / -2170 Weight last 48 hrs Weight 145.286 kg Weight 145.966 kg Physical Exam Urinary Catheter Management^: Ingram: Cath Placed During This Visit: yes, but has since been removed by the nurse Urinary Catheter Date of Insertion: 04/08/20 Urinary Catheter Time of Insertion: 11:45 Date Urinary Catheter Removed: 04/08/20 Time Urinary Catheter Discontinued: 13:54 Data NPU Micro: Micro: Microbiology 04/06/20 19:25 Blood Culture - Pr eliminary Blood Corynebacterium species Microbiology 04/06/20 19:25 Blood Blood Culture - Preliminary Corynebacterium species A&P Assessment and plan (1) Closed supracondylar fracture of femur: Status: Acute Qualifiers: Encounter type: initial encounter Laterality: left Qualified Code(s): S72.452A - Displaced supracondylar fracture without intracondylar extension of lower end of left femur, initial encounter for closed fracture (2) Anika-prosthetic fracture around prosthetic knee: Status: Acute Qualifiers: Encounter type: initial encounter Laterality: left Qualified Code(s): M97.12XA - Periprosthetic fracture around internal prosthetic left knee joint, initial encounter (3) Fracture of femur: Status: Acute Qualifiers: Encounter type: initial encounter Femur location: distal, unspecified portion Fracture morphology: unspecified fracture morphology Fracture type: closed Laterality: left Qualified Code(s): S72.402A - Unspecified fracture of lower end of left femur, initial encounter for closed fracture (4) Fall: Status: Acute Additional A&P Information (1) Atrial fibrillation: (2) S/P total knee arthroplasty: (3) Chest pain: (4) Hypertension: (5) Diabetes: (6) Anxiety: (7) Mood disorder: (8) Suicidal thoughts: (9) Adjustment disorder with mixed disturbance of emotions and conduct: This is a 54-year-old white male with a recent history of difficulties after his most recent divorce with some history of addiction who presented to the emerge ncy department after a fall which led to a fractured femur and now having to discharge to a senior care. 1. Continue current medication. 2. Agree with discharge with option for senior care but allowing him to go to his car to make that decision. He denies active lethality and only reported that he did not will be forced into the senior care and would rather go to his car even though he understands that that is not the best medical decision and could come with consequences. 3. Patient able to contract for safety. 4. Would make sure he has refills for medications and appointments for mental health follow-up. Involuntary Hold Information 96 Hour Hold: 96 Hour Involuntary Admission: Yes 96 Hour Hold Ending Date: 03/10/20 96 Hour Hold Ending Time: 05:52 Attestations NPU Medical Necessity Statement*: N/A. Please see primary team note for medical necessity. However no need for acute inpatient psychiatric services identified. 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
[2020-04-13 19:18] VITALS: BP 128/75; PULSE 83; RESP 18; TEMP 36.4; O2SAT 95
[2020-04-13] MEDS: ARIPiprazole 10 mg Tablet 5 MG PO (21:19)
[2020-04-14 00:54] VITALS: BP 101/73; PULSE 76; RESP 18; TEMP 36.8; O2SAT 92
[2020-04-14] MEDS: acetaminophen 500 mg Tablet 1000 MG PO ×3 (03:20→18:35)
[2020-04-14 04:43] VITALS: BP 119/77; PULSE 73; RESP 17; TEMP 36.6; O2SAT 94
[2020-04-14 06:07] LABS: Basophils % 0.9 %; Eosinophils # 0.2 10^3/uL (0.0-0.8); Eosinophils % 4.5 %; Hematocrit 31.3 % (42.0-52.0); Hemoglobin 9.4 g/dL (11.7-16.6); Lymphocytes # 1.1 10^3/uL (0.8-4.8); Lymphocytes % 24.9 %; Mean Corpuscular Hemoglobin 25.6 pg (28.0-34.0); Mean Corpuscular Volume 85.3 fL (80-94); Monocytes # 0.4 10^3/uL (0.2-0.9); Monocytes % 10.4 %; Neutrophils % 58.8 %; Nucleated Red Blood Cells % 0 %; Platelet Count 140 10^3/cmm (130-400); Red Blood Count 3.67 10^6/uL (4.1-5.3); Red Cell Distribution Width 17.7 % (12.1-15.1); White Blood Count 4.3 10^3/uL (4.0-10.0)
[2020-04-14 06:32] LABS: Alanine Aminotransferase 21 U/L (0-41); Albumin Level 2.9 g/dL (3.5-5.2); Alkaline Phosphatase 218 IU/L (40-130); Aspartate Amino Transferase 35 U/L (0-40); Blood Urea Nitrogen 13 mg/dL (6-20); Calcium 8.6 mg/dL (8.5-10.5); Carbon Dioxide 32 mmol/L (22-29); Chloride 98 mmol/L (98-107); Globulin 3.4 g/dL (1.3-4.6); Glucose 131 mg/dL (65-115); Osmolality Calculated 284 mOsm/kg (285-295); Phosphorus 3.8 mg/dL (2.5-4.5); Sodium 136 mmol/L (136-145); Total Bilirubin 0.6 mg/dL (0.15-1.2); Total Protein 6.3 g/dL (6.6-8.7)
[2020-04-14 06:39] LABS: Glucose Point of Care 118 mg/dL (70-110)
[2020-04-14 07:46] VITALS: BP 126/73; PULSE 70; RESP 18; TEMP 36.6; O2SAT 93
[2020-04-14] MEDS: CELEcoxib 200 mg Capsule PO ×2 (09:04→18:35)
[2020-04-14] MEDS: ropinirole 1 mg Tablet PO ×2 (09:04→21:27)
[2020-04-14] MEDS: amlodipine 10 mg Tablet PO (09:04)
[2020-04-14] MEDS: gabapentin 300 mg Capsule 600 MG PO ×3 (09:04→21:29)
[2020-04-14] MEDS: carvedilol 6.25 mg Tablet PO ×2 (09:04→21:27)
[2020-04-14] MEDS: apixaban 5 mg Tablet PO ×2 (09:05→18:35)
[2020-04-14] MEDS: sertraline 100 mg Tablet PO (09:05)
[2020-04-14] MEDS: spironolactone 25 mg Tablet 50 MG PO (09:05)
[2020-04-14] MEDS: hyDROXYzine 25 mg Capsule PO ×3 (09:05→21:27)
[2020-04-14] MEDS: docusate sodium 100 mg Capsule PO ×2 (09:05→18:35)
[2020-04-14] MEDS: multivitamin therapeutic Tablet 1 TAB PO (09:05)
[2020-04-14] MEDS: ferrous gluconate 324 mg Tablet PO ×2 (09:05→18:36)
[2020-04-14] MEDS: insulin glargine 100 units/1 mL 55 UNIT SUBCUT ×2 (09:06→21:30)
[2020-04-14] MEDS: FUROsemide 40 mg Tablet PO ×2 (09:06→18:35)
[2020-04-14] MEDS: famotidine 20 mg Tablet PO ×2 (09:06→18:35)
[2020-04-14 10:51] LABS: Glucose Point of Care 224 mg/dL (70-110)
--- NOTE | 2020-04-14 11:11 | PM.PN ---
Subjective Subjective: Interval history: This morning patient was examined, he is a bit more quiet than usual, has no particular complaints, Yesterday afternoon, patient reported to the nurse that he felt down, depressed, had suicidal ideation, I spoke to patient about this this morning, his social situation is difficult, he has no home to go back to, he does not have insurance, cannot go to halfway, and he has had a severe supracondylar fracture of the femur, his finances are tight, unfortunately he is looking at options of either living out of his car or living in a homeless nursing home, he does feel down depressed, he did have suicidal ideation yesterday, currently denies any suicidal ideation, currently denies any homicidal ideation, no plan currently Vitals/I&O/Wt Last Vital Signs Temp 97.8 F 04/14/20 07:46 Pulse 70 04/14/20 07:46 Resp 18 04/14/20 07:46 BP 126/73 04/14/20 07:46 Pulse Ox 93 04/14/20 07:46 04/13/20 04/14/20 04/14/20 22:59 06:59 14:59 Intake Total 480 / 480 Output Total 1400 / 4050 1250 / 5300 800 / 800 Balance -1400 / -3570 -1250 / -4820 -320 / -320 Weight last 48 hrs Weight 145.286 kg Weight 145.966 kg Physical Exam Const: COMMON NORMALS: no acute distress and patient oriented x3 HENMT: COMMON NORMALS: normocephalic HEAD & SCALP: normocephalic Neck/C-Spine: COMMON NORMALS: no JVD Resp: COMMON NORMALS: normal respiratory effort, No retractions, No use of accessory muscles and clear to auscultation bilaterally AUSCULTATION: clear to auscultation bilaterally Cardio: COMMON NORMALS: no JVD, regular rate, regular rhythm, S1 normal heart sound present and S2 normal heart sound present RATE: regular rate RHYTHM: regular rhythm HEART SOUNDS: S1 normal heart sound present and S2 normal heart sound present GI: COMMON NORMALS: Normal to inspection, nondistended, normoactive bowel sounds present, Soft to palpation, non-tender, No hepatosplenomegaly present, no masses and no bruits PALPATION: Yes Soft to palpation and Yes No hepatosplenomegaly present Extremity: COMMON NORMALS: capillary refill normal, no clubbing, cyanosis or edema, no calf tenderness and no pedal edema NARRATIVE EXTREMITY EXAM: Left leg in immobilizer Neuro: COMMON NORMALS: patient oriented x3 Psych: COMMON NORMALS: mental status grossly normal ATTITUDE: Yes Withdrawn affect present ACTIVITY/MOTOR BEHAVIOR: Yes Avoids eye contact (attititude/behavior) MOOD & AFFECT: Yes depressed mood Urinary Catheter Management^: Ingram: Cath Placed During This Visit: yes, but has since been removed by the nurse Urinary Catheter Date of Insertion: 04/08/20 Urinary Catheter Time of Insertion: 11:45 Date Urinary Catheter Removed: 04/08/20 Time Urinary Catheter Discontinued: 13:54 Data : 04/14/20 05:22 04/14/20 05:22 Micro: Microbiology 04/06/20 19:25 Blood Culture - Preliminary Blood Corynebacterium species A&P Assessment and plan (1) Fall: Status: Acute (2) Fracture of femur: Status: Acute Qualifiers: Encounter type: initial encounter Femur location: distal, unspecified portion Fracture morphology: unspecified fracture morphology Fracture type: closed Laterality: left Qualified Code(s): S72.402A - Unspecified fracture of lower end of left femur, initial encounter for closed fracture (3) Atrial fibrillation: Status: Acute Qualifiers: Atrial fibrillation type: unspecified chronic Qualified Code(s): I48.20 - Chronic atrial fibrillation, unspecified (4) Congestive heart failure: Status: Acute Qualifiers: Heart failure type: unspecified Heart failure chronicity: chronic Qualified Code(s): I50.9 - Heart failure, unspecified (5) Hypertension: Status: Acute Qualifiers: Hypertension type: essential hypertension Qualified Code(s): I10 - Essential (primary) hypertension (6) Diabetes: Status: Acute Qualifiers: Diabetes mellitus complication status: with hyperglycemia Diabetes mellitus manager long term care insulin use: with manager long term care use Diabetes mellitus type: type 2 Qualified Code(s): E11.65 - Type 2 diabetes mellitus with hyperglycemia; Z79.4 - halfway (current) use of insulin (7) Anxiety: Status: Acute (8) S/P total knee arthroplasty: Status: Acute Qualifiers: Laterality: left Qualified Code(s): Z96.652 - Presence of left artificial knee joint (9) COVID-19: Status: Acute (10) Suicidal ideation: -Not actively suicidal -Certainly has depression and anxiety -Very difficult situation, poor social situation -Seen by Dr. Martin -Plan to continue current medication Status: Acute Additional A&P Information 54-year-old man with past medical history of atrial fibrillation, congestive heart failure type 2 diabetes mellitus, recent COVID-19 presents after having a fall and found to have left femoral fracture. Fall: Mechanical as he twisted his ankles while walking on the rocks. Left fracture femur: Postop day 6 Anticoagulation, physical therapy, perioperative antibiotics, weightbearing as per orthopedics. Continue Amagon 5 1 tab every 6 hours as needed along with celecoxib for pain. Hemoglobin 9.4 today. Mildly low since yesterday. We will continue to monitor. No active signs of bleeding. Atrial fibrillation: Rate controlled at present. Continue home dose of carvedilol. Telemetry monitoring. On home Eliquis Congestive heart failure: Euvolemic at present. Patient takes forsemide 40 mg twice daily, spironolactone 25 mg daily at home. Continues with home doses of medication. Last echocardiogram from April 2019 shows an EF 55% with grade 2 diastolic dysfunction with mildly dilated LA. Hypertension: Known goal blood pressure less than 140/90 Hg. For now continue with home dose of amlodipine. We will continue to monitor blood pressures. Type 2 diabetes mellitus: Continue with home dose of Lantus 55 units twice daily. Continue with insulin sliding scale moderate dose protocol. Will monitor insulin requirements in next 24 hours and if needed will increase Lantus accordingly. HbA1c 9.3. Anemia: Baseline hemoglobin around 11. 9.0 today We will continue to monitor. Repeat hemoglobin afternoon. Transfuse if hemoglobin falls below 8 because of history of congestive heart failure and atrial fibrillation. Continue with monitoring hemoglobin daily for now. COVID-19: Tested positive in December. Has finished his quarantine. Asymptomatic at present. Chest x-ray. COVID-19 PCR has been sent from the ER. For now isolation precautions. Anxiety: Continue with home dose of and baseline, Zoloft. Continue other chronic medication like hydroxyzine, gabapentin, Requip Pancytopenia, white blood cell count 4.3, hemoglobin 9.4, platelet count 140 likely secondary to fall, postsurgical, continue to monitor for fevers Full code. Carb consistent cardiac diet. Eliquis for DVT prophylaxis Discharge planning: Unfortunately placement to halfway at this point is difficult, patient tells caseworkers that he thinks he has Blue Cross Blue Shield is not valid as he has not paid his bills in some time. In addition patient owes money to a local halfway. Were trying [facility] halfway at this point. 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[facility] Diagnoses Fall W19.XXXA Fracture of femur S72.402A Encounter type: initial encounter Femur location: distal, unspecified portion Fracture morphology: unspecified fracture morphology Fracture type: closed Laterality: left Atrial fibrillation I48.20 Atrial fibrillation type: unspecified chronic Congestive heart failure I50.9 Heart failure type: unspecified Heart failure chronicity: chronic Hypertension I10 Hypertension type: essential hypertension Diabetes E11.65; Z79.4 Diabetes mellitus complication status: with hyperglycemia Diabetes mellitus manager long term care insulin use: with mcc use Diabetes mellitus type: type 2 Anxiety F41.9 S/P total knee arthroplasty Z96.652 Laterality: left COVID-19 U07.1 Suicidal ideation R45.851
[2020-04-14] MEDS: CLONazepam 0.5 mg Tablet PO (11:25)
[2020-04-14 11:41] VITALS: BP 127/64; PULSE 62; RESP 20; TEMP 36.4; O2SAT 95
--- NOTE | 2020-04-14 14:12 | PM.PN ---
Subjective Subjective: Interval history: Yesterday afternoon, patient reported to the nurse that he felt down, depressed, had suicidal ideation. He states he no longer has these feelings today. When I see him in the afternoon, he states understanding of need for appropriate placement. I have encouraged him strongly to go to a homeless skilled nursing rather than try to live in his car. He appears to understand at this time. Medications: Reviewed: Yes Vitals/I&O/Wt Last Vital Signs Temp 97.5 F L 04/14/20 11:41 Pulse 62 04/14/20 11:41 Resp 20 H 04/14/20 11:41 BP 127/64 04/14/20 11:41 Pulse Ox 95 04/14/20 11:41 04/13/20 04/14/20 04/14/20 22:59 06:59 14:59 Intake Total 1200 / 1200 Output Total 1400 / 4050 1250 / 5300 800 / 800 Balance -1400 / -3570 -1250 / -4820 400 / 400 Weight last 48 hrs Weight 320 lb 4.8 oz Weight 321 lb 12.8 oz Physical Exam Const: COMMON NORMALS: no acute distress, average body habitus, patient oriented x3 and alert GENERAL APPEARANCE: cooperative and comfortable ORIENTATION/CONSCIOUSNESS: Yes awake HENMT: COMMON NORMALS: normocephalic and atraumatic HEAD & SCALP: normocephalic and atraumatic Eye: GENERAL EYE: appearance normal, both eyes and all related structures Chest: COMMONS NORMALS: normal inspection of the chest Resp: COMMON NORMALS: normal respiratory effort EFFORT & INSPECTION: Yes able to speak in complete sentences and Yes symmetric chest movement Extremity: LEFT LOWER EXTREMITY: Yes knee joint (The incision remains benign. Cassia are in place. There is some swelling) Left knee: Yes inspection (No erythema or drainage.), Yes palpation (Minimal tenderness to palpation), Yes ROM (Not evaluated.) and Yes neurovascular exam (Intact with no evidence of DVT.) Neuro: COMMON NORMALS: patient oriented x3 SENSORIUM/ORIENTATION: Yes alert GAIT: Yes Unable to assess gait (Secondary to fracture) Psych: COMMON NORMALS: mental status grossly normal APPEARANCE: Yes grossly normal ATTITUDE: Yes calm and Yes engaged ATTENTION/CONCENTRATION: Yes attention grossly intact Skin: COMMON NORMALS: no rashes or lesions noted GENERAL SKIN EXAM: no rashes or lesions noted Urinary Catheter Management^: Ingram: Cath Placed During This Visit: yes, but has since been removed by the nurse Urinary Catheter Date of Insertion: 04/08/20 Urinary Catheter Time of Insertion: 11:45 Date Urinary Catheter Removed: 04/08/20 Time Urinary Catheter Discontinued: 13:54 Data : 04/14/20 05:22 04/14/20 05:22 Micro: Microbiology 04/06/20 19:25 Blood Culture - Preliminary Blood Corynebacterium species A&P Assessment and plan (1) Closed supracondylar fracture of femur: This gentleman is well-known to me following total knee arthroplasty in December of this year. The patient had a fall directly onto his total knee arthroplasty when he was unable to maintain footing in pile of 3 inch rocks. He was admitted through the emergency department with a periprosthetic supracondylar left femur fracture. The patient was admitted to the medical service secondary to multiple medical comorbidities. Surgery was accomplished on the afternoon of April 08 following medical evaluation and treatment. Following the surgical procedure, the patient was placed back on Eliquis as an anticoagulant. The severity of his fracture was explained to him in detail. He understands that he is to be nonweightbearing on this extremity and the reasons why. Due to insurance issues, placement has been very difficult for this patient. He refused placement to a homeless skilled nursing, however, once again, I have encouraged him that he needs to be appropriate in his decisions regarding where he will be at the time of discharge. I have encouraged him to accept going to the homeless skilled nursing as I am very concerned if he attempts to live on the streets, he will walk on this and cause it to fall apart, become infected, and put his leg at risk. Status: Acute Qualifiers: Encounter type: initial encounter Laterality: left Qualified Code(s): S72.452A - Displaced supracondylar fracture without intracondylar extension of lower end of left femur, initial encounter for closed fracture (2) Anika-prosthetic fracture around prosthetic knee: Status: Acute Qualifiers: Encounter type: initial encounter Laterality: left Qualified Code(s): M97.12XA - Periprosthetic fracture around internal prosthetic left knee joint, initial encounter Additional A&P Information s/p ORIF Left periprosthetic femur fx of knee continue current tx Attestations Medical Necessity Statement*: Awaiting placement and resolution of psychiatric issues Coding Level of Care Code Acute Financial Services Technician for Chg Fwd Diagnoses Closed supracondylar fracture of femur S72.452A Encounter type: initial encounter Laterality: left Anika-prosthetic fracture around prosthetic knee M97.12XA Encounter type: initial encounter Laterality: left
[2020-04-14 16:00] VITALS: BP 128/79; PULSE 74; RESP 18; TEMP 36.4; O2SAT 98
[2020-04-14 16:52] LABS: Glucose Point of Care 70 mg/dL (70-110)
[2020-04-14 20:00] VITALS: BP 124/75; PULSE 79; RESP 19; TEMP 36.9; O2SAT 96
[2020-04-14 21:24] LABS: Glucose Point of Care 245 mg/dL (70-110)
[2020-04-14] MEDS: ARIPiprazole 10 mg Tablet 5 MG PO (21:27)
[2020-04-14] MEDS: tizanidine 4 mg Tablet 2 MG PO (23:46)
[2020-04-15] VITALS: BP 105/67; PULSE 68; RESP 17; TEMP 36.7; O2SAT 97
[2020-04-15] MEDS: acetaminophen 500 mg Tablet 1000 MG PO ×3 (02:02→17:01)
[2020-04-15 02:41] LABS: Basophils # 0.1 10^3/uL (0.0-0.1); Eosinophils # 0.2 10^3/uL (0.0-0.8); Eosinophils % 3.5 %; Hematocrit 31.1 % (42.0-52.0); Hemoglobin 9.4 g/dL (11.7-16.6); Lymphocytes # 1.3 10^3/uL (0.8-4.8); Lymphocytes % 26.9 %; Mean Corpuscular HGB Conc 30.2 g/dL (30.0-36.0); Mean Corpuscular Hemoglobin 25.8 pg (28.0-34.0); Mean Corpuscular Volume 85.4 fL (80-94); Mean Platelet Volume 12.1 fL (7.4-10.4); Monocytes # 0.5 10^3/uL (0.2-0.9); Monocytes % 9.6 %; Neutrophils # 2.82 10^3/uL (1.8-7.7); Neutrophils % 58.8 %; Nucleated Red Blood Cells % 0 %; Platelet Count 145 10^3/cmm (130-400); Red Blood Count 3.64 10^6/uL (4.1-5.3); Red Cell Distribution Width 17.5 % (12.1-15.1); White Blood Count 4.8 10^3/uL (4.0-10.0)
[2020-04-15 03:10] LABS: Alanine Aminotransferase 20 U/L (0-41); Albumin Level 2.8 g/dL (3.5-5.2); Alkaline Phosphatase 211 IU/L (40-130); Anion Gap 11.1 (5-19); Aspartate Amino Transferase 36 U/L (0-40); Blood Urea Nitrogen 15 mg/dL (6-20); Calcium 8.5 mg/dL (8.5-10.5); Carbon Dioxide 30 mmol/L (22-29); Chloride 98 mmol/L (98-107); Globulin 3.3 g/dL (1.3-4.6); Glomerular Filtration Rate 88.3 mL/min (90-130); Glucose 215 mg/dL (65-115); Magnesium 1.9 mg/dL (1.7-2.3); Osmolality Calculated 287 mOsm/kg (285-295); Phosphorus 3.6 mg/dL (2.5-4.5); Potassium 4.1 mmol/L (3.5-5.1); Sodium 135 mmol/L (136-145); Total Bilirubin 0.6 mg/dL (0.15-1.2); Total Protein 6.1 g/dL (6.6-8.7)
[2020-04-15 04:00] VITALS: BP 116/76; PULSE 65; RESP 14; TEMP 36.4; O2SAT 97
[2020-04-15 06:40] LABS: Glucose Point of Care 123 mg/dL (70-110)
[2020-04-15 08:00] VITALS: BP 114/77; PULSE 52; RESP 18; TEMP 36.8; O2SAT 96
[2020-04-15] MEDS: insulin glargine 100 units/1 mL 55 UNIT SUBCUT ×2 (09:15→21:19)
[2020-04-15] MEDS: multivitamin therapeutic Tablet 1 TAB PO (09:16)
[2020-04-15] MEDS: carvedilol 6.25 mg Tablet PO ×2 (09:16→21:17)
[2020-04-15] MEDS: apixaban 5 mg Tablet PO ×2 (09:16→17:01)
[2020-04-15] MEDS: sertraline 100 mg Tablet PO (09:16)
[2020-04-15] MEDS: docusate sodium 100 mg Capsule PO ×2 (09:16→17:01)
[2020-04-15] MEDS: CELEcoxib 200 mg Capsule PO ×2 (09:16→17:01)
[2020-04-15] MEDS: spironolactone 25 mg Tablet 50 MG PO (09:16)
[2020-04-15] MEDS: CLONazepam 0.5 mg Tablet PO (09:16)
[2020-04-15] MEDS: gabapentin 300 mg Capsule 600 MG PO ×3 (09:16→21:16)
[2020-04-15] MEDS: famotidine 20 mg Tablet PO ×2 (09:16→17:01)
[2020-04-15] MEDS: ferrous gluconate 324 mg Tablet PO ×2 (09:17→17:01)
[2020-04-15] MEDS: FUROsemide 40 mg Tablet PO ×2 (09:17→17:01)
[2020-04-15] MEDS: ropinirole 1 mg Tablet PO ×2 (09:17→21:17)
[2020-04-15] MEDS: amlodipine 10 mg Tablet PO (09:17)
[2020-04-15 10:50] LABS: Glucose Point of Care 221 mg/dL (70-110)
--- NOTE | 2020-04-15 11:20 | P.PN_ITS ---
Subjective Subjective: Interval history: This morning patient was examined, this morning he is telling me that he does not have the will to live, he feels that he would be better off , does not have any particular plans or has any specific directions on how he would carry this out, I spoke to Dr. Martin, patient will be transferred to the npu Medications: Reviewed: Yes Vitals/I&O/Wt Last Vital Signs Temp 98.3 F 04/15/20 08:00 Pulse 52 L 04/15/20 08:00 Resp 18 04/15/20 08:00 BP 114/77 04/15/20 08:00 Pulse Ox 96 04/15/20 08:00 04/14/20 04/15/20 04/15/20 22:59 06:59 14:59 Intake Total 240 / 1440 120 / 120 Output Total 2150 / 2950 800 / 3750 700 / 700 Balance -2150 / -1750 -560 / -2310 -580 / -580 Weight last 48 hrs Weight 141.43 kg Weight 145.286 kg Physical Exam Const: COMMON NORMALS: no acute distress and patient oriented x3 HENMT: COMMON NORMALS: normocephalic HEAD & SCALP: normocephalic Neck/C-Spine: COMMON NORMALS: no JVD Resp: COMMON NORMALS: normal respiratory effort, No retractions, No use of accessory muscles and clear to auscultation bilaterally AUSCULTATION: clear to auscultation bilaterally Cardio: COMMON NORMALS: no JVD, regular rate, regular rhythm, S1 normal heart sound present and S2 normal heart sound present RATE: regular rate RHYTHM: regular rhythm HEART SOUNDS: S1 normal heart sound present and S2 normal heart sound present GI: COMMON NORMALS: Normal to inspection, nondistended, normoactive bowel sounds present, Soft to palpation, non-tender, No hepatosplenomegaly present, no masses and no bruits PALPATION: Yes Soft to palpation and Yes No hepatosplen omegaly present Extremity: COMMON NORMALS: capillary refill normal, no clubbing, cyanosis or edema, no calf tenderness and no pedal edema NARRATIVE EXTREMITY EXAM: Left leg in immobilizer Neuro: COMMON NORMALS: patient oriented x3 Psych: COMMON NORMALS: mental status grossly normal ATTITUDE: Yes Withdrawn affect present ACTIVITY/MOTOR BEHAVIOR: Yes Avoids eye contact (attititude/behavior) MOOD & AFFECT: Yes depressed mood Urinary Catheter Management^: Ingram: Cath Placed During This Visit: yes, but has since been removed by the nurse Urinary Catheter Date of Insertion: 04/08/20 Urinary Catheter Time of Insertion: 11:45 Date Urinary Catheter Removed: 04/08/20 Time Urinary Catheter Discontinued: 13:54 Data : 04/15/20 02:00 04/15/20 02:00 Micro: Microbiology 04/06/20 19:25 Blood Culture - Final Blood Corynebacterium species A&P Assessment and plan (1) Fall: Status: Acute (2) Fracture of femur: Status: Acute Qualifiers: Encounter type: initial encounter Femur location: distal, unspecified portion Fracture morphology: unspecified fracture morphology Fracture type: closed Laterality: left Qualified Code(s): S72.402A - Unspecified fracture of lower end of left femur, initial encounter for closed fracture (3) Atrial fibrillation: Status: Acute Qualifiers: Atrial fibrillation type: unspecified chronic Qualified Code(s): I48.20 - Chronic atrial fibrillation, unspecified (4) Congestive heart failure: Status: Acute Qualifiers: Heart failure type: unspecified Heart failure chronicity: chronic Qualified Code(s): I50.9 - Heart failure, unspecified (5) Hypertension: Status: Acute Qualifiers: Hypertension type: essential hypertension Qualified Code(s): I10 - Essential (primary) hypertension (6) Diabetes: Status: Acute Qualifiers: Diabetes mellitus complication status: with hyperglycemia 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 Martin -Plan to continue current medication Status: Acute Additional A&P Information 54-year-old man with past medical history of atrial fibrillation, congestive heart failure type 2 diabetes mellitus, recent COVID-19 presents after having a fall and found to have left femoral fracture. Given recurrent active suicidal ideation we will move patient down to the n.p.u Fall: Mechanical as he twisted his ankles while walking on the rocks. Left fracture femur: Postop day 7 Anticoagulation, physical therapy, perioperative antibiotics, weightbearing as per orthopedics. Continue [place] 5 1 tab every 6 hours as needed along with celecoxib for pain. Hemoglobin 9.4 today. Mildly low since yesterday. We will continue to monitor. No active signs of bleeding. Atrial fibrillation: Rate controlled at present. Continue home dose of carvedilol. Telemetry monitoring. On home Eliquis Congestive heart failure: Euvolemic at present. Patient takes forsemide 40 mg twice daily, spironolactone 25 mg daily at home. Continues with home doses of medication. Last echocardiogram from April 2019 shows an EF 55% with grade 2 diastolic dysfunction with mildly dilated LA. Hypertension: Known goal blood pressure less than 140/90 Hg. For now continue with home dose of amlodipine. We will continue to monitor blood pressures. Type 2 diabetes mellitus: Continue with home dose of Lantus 55 units twice daily. Continue with insulin sliding scale moderate dose protocol. Will monitor insulin requirements in next 24 hours and if needed will increase Lantus accordingly. HbA1c 9.3. Anemia: Baseline hemoglobin around 11. 9.4 today We will continue to monitor. Repeat hemoglobin afternoon. Transfuse if hemoglobin falls below 8 because of history of congestive heart failure and atrial fibrillation. Continue with monitoring hemoglobin daily for now. COVID-19: Tested positive in December. Has finished his quarantine. Asymptomatic at present. Chest x-ray. COVID-19 PCR has been sent from the ER. For now isolation precautions. Anxiety: Continue with home dose of and baseline, Zoloft. Continue other chronic medication like hydroxyzine, gabapentin, Requip Pancytopenia, white blood cell count 4.8, hemoglobin 9.4, platelet count 145 likely secondary to fall, postsurgical, continue to monitor for fevers Full code. Carb consistent cardiac diet. Eliquis for DVT prophylaxis Discharge planning: Unfortunately placement to penitentiary at this point is difficult, patient tells caseworkers that he thinks he has Blue Cross Blue Shield is not valid as he has not paid his bills in some time. In addition patient owes money to a local penitentiary. Were trying [facility] pen[facility] at this point. Unfortunately also does not have a certain living situation, has been working room from a friend, cannot accommodate him anymore, only reasonable option would be a usp Plan for today, continue physical therapy, moved to neuropsychiatric unit Attestations Medical Necessity Statement*: Patient requires hospitalization for left knee fracture, active suicidal ideation, requires transfer to npu Coding Level of Care Code Acute Soldering Machine Operator Automatic for g Fwd Diagnoses Fall W19.XXXA Fracture of femur S72.402A Encounter type: initial encounter Femur location: distal, unspecified portion Fracture morphology: unspecified fracture morphology Fracture type: closed Laterality: left Atrial fibrillation I48.20 Atrial fibrillation type: unspecified chronic Congestive heart failure I50.9 Heart failure type: unspecified Heart failure chronicity: chronic Hypertension I10 Hypertension type: essential hypertension Diabetes E11.65; Z79.4 Diabetes mellitus complication status: with hyperglycemia Diabetes mellitus long wall mining machine helper insulin use: with group home use Diabetes mellitus type: type 2 Anxiety F41.9 S/P total knee arthroplasty Z96.652 Laterality: left COVID-19 U07.1 Suicidal ideation R45.850
[2020-04-15 11:32] VITALS: BP 125/80; PULSE 79; RESP 18; TEMP 36.9; O2SAT 94
[2020-04-15] MEDS: hyDROXYzine 25 mg Capsule PO ×2 (12:04→21:17)
[2020-04-15] MEDS: tizanidine 4 mg Tablet 2 MG PO ×2 (12:06→21:17)
--- NOTE | 2020-04-15 12:35 | PC.NURSE ---
Patient report called to Beth CARLSON in NPU, IV DC'd cath intact bleeding controlled with 2x2 and coban.
--- NOTE | 2020-04-15 15:00 | PC.NURSE ---
Patient transported to NPU via wheelchair with zero difficulties
--- NOTE | 2020-04-15 15:00 | PC.OT ---
OT tx attempted. Pt in the process of being transferred to NPU. OT services withheld at this time. Therapist to follow up on pts continued need for OT services on the unit tomorrow after he sees the physician.
[2020-04-15 16:42] LABS: Glucose Point of Care 185 mg/dL (70-110)
[2020-04-15 20:05] LABS: Glucose Point of Care 162 mg/dL (70-110)
[2020-04-15 20:12] VITALS: BP 128/71; PULSE 76; RESP 18; TEMP 36.8; O2SAT 96
[2020-04-15] MEDS: ARIPiprazole 10 mg Tablet 5 MG PO (21:17)
[2020-04-16 06:00] VITALS: BP 154/88; PULSE 84; RESP 17; TEMP 36.7; O2SAT 97
[2020-04-16 06:22] LABS: Glucose Point of Care 106 mg/dL (70-110)
[2020-04-16] MEDS: docusate sodium 100 mg Capsule PO ×2 (08:31→16:46)
[2020-04-16] MEDS: hyDROXYzine 25 mg Capsule PO ×3 (08:31→20:33)
[2020-04-16] MEDS: CELEcoxib 200 mg Capsule PO ×2 (08:31→16:49)
[2020-04-16] MEDS: spironolactone 25 mg Tablet 50 MG PO (08:31)
[2020-04-16] MEDS: multivitamin therapeutic Tablet 1 TAB PO (08:31)
[2020-04-16] MEDS: gabapentin 300 mg Capsule 600 MG PO ×3 (08:31→20:33)
[2020-04-16] MEDS: amlodipine 10 mg Tablet PO (08:32)
[2020-04-16] MEDS: ropinirole 1 mg Tablet PO ×2 (08:32→20:33)
[2020-04-16] MEDS: ferrous gluconate 324 mg Tablet PO ×2 (08:32→16:49)
[2020-04-16] MEDS: FUROsemide 40 mg Tablet PO ×2 (08:32→16:46)
[2020-04-16] MEDS: acetaminophen 500 mg Tablet 1000 MG PO ×2 (08:32→16:46)
[2020-04-16] MEDS: carvedilol 6.25 mg Tablet PO ×2 (08:32→20:34)
[2020-04-16] MEDS: sertraline 100 mg Tablet PO (08:32)
[2020-04-16] MEDS: apixaban 5 mg Tablet PO ×2 (08:32→16:46)
[2020-04-16] MEDS: famotidine 20 mg Tablet PO ×2 (08:32→16:46)
[2020-04-16] MEDS: insulin glargine 100 units/1 mL 55 UNIT SUBCUT ×2 (09:47→20:35)
--- NOTE | 2020-04-16 10:13 | P.HP_ITS ---
Providers/Chief Complaint Admitting Physician: Taqueria Garcia MD Primary Care Provider: Contreras Faustin DO Chief Complaint: TWISTED L LEG AFTER FALL WITH DEFORMITY HPI NPU History of Present Illness Chun Webster JR is a 54 year old male who presented to [facility] with a fractured leg and then was [facility] for definitive treatment of those issues. While on the MedSurg unit there was a psychiatric consult on 04/13/2020 with the following report: History of Present Illness Chun Webster JR is a 54 year old male who presented to the emergency department with the following report: Chief Complaint: Extremity Injury, Lower Stated Complaint: TWISTED L LEG AFTER FALL WITH DEFORMITY Time Seen by Provider: 04/06/20 16:21 Source: patient and EMS Mode of arrival: EMS Limitations: no limitations History of Present Illness: HPI Narrative: 54-year-old male states he fell over a rock at home just prior to arrival. He states he twisted his left knee. He had knee replacement in December and has severe pain to that knee currently. He does have deformity noted states he was unable to bear weight and is unable to bend it. Denies any ankle or hip pain. He states his pain is much worse when he tries to move and improved with rest. Associated symptoms-after fall: Denies abdominal pain, chest pain or headache(s) He was admitted to the hospital preoperatively for surgery. Surgery was performed and he went [facility] for postop care and convalescence. Upon attempted discharge, he had limited options and endorsed being suicidal which led to the psychiatric consult to ensure safety for discharge. Chun presented reporting that he had made those statements but that he was primarily focused on not going to the local senior living. He reports that he does not like being in there and he would rather be in his car. He endorsed that he has been taking his medication and that it has been effective. He denied any need for any changes. He reports that things have been tough at a certain level and he is hoping that they get better. He denied that he wanted to kill himself only saying that he did not want to go to the senior living he just wanted them to give him a ride to his car to his car. We reviewed his last inpatient evaluation and excerpt is included below for context. Per his 03/05/2020 [facility] inpatient eval: History of Present Illness Chun Webster JR is a 54 year old male [facility]: Chief Complaint: Chest Pain Stated Complaint: chest pain Time Seen by Provider: 03/04/20 04:56 Source: patient and EMS Mode of arrival: EMS Limitations: no limitations History of Present Illness: HPI narrative: Mr. Webster is a nice 54-year-old male who comes in complaining of chest pain that awoke him from sleep. He states that he woke with chest pain described as a sharp pain that did not radiate. He also describes it as a tightness. He states that he noticed that he was sweating profusely upon awakening. He had associated shortness of breath along with nauseousness and he threw up twice. Patient states that the symptoms lasted for about 10 minutes after awakening and slowly dissipated until the resolution. Patient's not had any discomfort or symptoms since. Patient did call EMS who have stated they did not do anything in route as the patient's been asymptomatic since their picking him up. Patient states that he has a history of atrial fibrillation, congestive heart failure and heart attack but he is never received a stent only had a diagnostic heart cath. He states this was performed at [facility] in the past. Patient is currently on Eliquis for his atrial fibrillation. This time the patient states he is pain-free. Patient denies any similar symptoms to this recently. Associated symptoms: Reports diaphoresis, dyspnea, nausea and vomiting; Deny abdominal pain, fever(s), palpitations or syncope. He endorsed suicidal thoughts, and being overwhelmed in addition to the ED report and was admitted to the neuropsychiatric unit for definitive treatment of those issues. Today he presents reporting that this is his second psychiatric hospitalization with the first 1 being about a year ago. He reports that things got bad because his and he were getting a divorce and she took his children. He reports he still has not seen him since last March. He reports that he started getting therapy in [place] as well. He reports that there has been a bad week overall for reasons he did not really get into and reports that yesterday he just felt completely overwhelmed, had bad week turned into a very bad night, he had thoughts that were not good and so that is why he came to the hospital. That chest pain that was reported he has come to proceed has to be anxiety about his circumstances. He denies any history of previous suicide attempts. He denies smoking cigarettes, reports that he drinks alcohol very little but did have some drinking issues in the past, denies marijuana cocaine or any other illicit drug use. He did go to rehab in October 2019 for 42 days after having his 1 and only DUI in May 2019. He reports recently had to have his left knee replaced and has had some difficulty with ambulation. He reports that he was started on Abilify which has been helpful and that overall he feels his current medications are helpful he has had a really bad night has no interest in making any changes after we had a discussion of the risks, benefits and alternatives of possibly making changes. Psychiatric history: As above. Abuse 3: Above. Family history: He denies mental health or addiction issues or any suicide attempts or completions in his biological family. Developmental history: He denies any problems with his mom's with him or or delivery. He reports he learned to walk and talk and met his developmental milestones on time. He reports that once he went to school when he was younger he did not need speech therapy, learning support, emotional support or special education classes. Psychosocial history: He reports his mother and father were together when he was born and that he and his younger sister are the only product of that union. He reports that his childhood was great and he denies any emotional, physical or sexual abuse. 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 He endorses being a heterosexual with his longest relationship being 21 years. He was 3 times and 3 times, he has 2 children a 14-year-old son and 11-year-old daughter. He was in the for 2 months entering the [employer] but he had not told the truth about a knee problem he had and so he had a medical discharge. He reports he believes in God. 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 He currently lives in an apartment alone. Legal history: Never been in care home or had significant legal peril. Medical history: Recent left knee surgery, history of cardiac problems like congestive heart failure diabetes hyperlipidemia hypertension and restless leg. Current history 04/16/2020: Continue with passive wish and suicidal thinking led to additional concerns and he was admitted to the neuropsychiatric unit for definitive treatment of those issues. He presents today reporting that he continued to feel more more despondent. He reports that unfortunately secondary to his recent injuries he had to quit his job where he was making over $20 an hour. That on top of the disconnected relationship with his children and the holidays coming up he reports truly feeling like he did not want to go forward. We discussed the risks, benefits and alternatives of increasing his Abilify and Zoloft and he understood and agreed to proceed as is documented in this note. Also without his ability to earn an income and the fact that he was not at the job long enough to turn short-term disability he finds himself ultimately with nothing. He does have a sister who lives nearby that he is relatively estranged from and has reportedly denied him support or a place to stay. The rest of his family is in [place] and [place]. Leaving him currently unclear what he is going to do with his life given his current situation. He denies any substantive changes from his history as noted above. Meds NPU Home Medications Medication Instructions Recorded Confirmed Last Taken Type multivitamin [Multiple Vitamins] 1 tab PO DAILY@05/27/19 04/06/20 04/05/20 History fluticasone propionate 2 spray INTRANASAL DAILY PRN 03/04/20 04/06/20 Unknown History amlodipine 10 mg PO DAILY@04/06/20 04/06/20 04/05/20 History apixaban [Eliquis] 5 mg PO BID@04/06/20 04/06/20 04/05/20 History aripiprazole 5 mg PO DAILY@04/06/20 04/06/20 04/05/20 History carvedilol 6.25 mg PO BID@04/06/20 04/06/20 04/05/20 History furosemide 40 mg PO BID@04/06/20 04/06/20 04/05/20 History gabapentin 600 mg PO TID@04/06/20 04/06/20 04/05/20 History hydroxyzine HCl 25 mg PO TID@04/06/20 04/06/20 04/05/20 History insulin glargine [Lantus Solostar 55 unit SUBCUT BID@04/06/20 04/06/20 04/06/20 History U-100 Insulin] ropinirole 1 mg PO BID@04/06/20 04/06/20 04/05/20 History sertraline 100 mg PO DAILY@04/06/20 04/06/20 04/05/20 History spironolactone 25 mg PO DAILY@04/06/20 04/06/20 04/05/20 History Allergies Allergy/AdvReac Type Severity Reaction Status Date / Time trazodone Allergy Unknown Verified 04/06/20 22:31 PFSH NPU PFSH: Medical History Angioedema Atrial fibrillation Congestive heart failure COVID-19 Diabetes Erectile dysfunction Hyperlipidemia Hypertension Neuropathy Psoriasis Restless leg syndrome Surgical History H/O knee surgery Hx of cardiac cath Family History Father Cancer Lung Mother Cancer Brain Other Diabetes Hypertension Social History Smoking and tobacco status: never smoked Alcohol intake: current Alcohol intake frequency: holidays/special occasions only Household members: friend(s) Housing: Apartment Mental Status Exam MSE Comments: This is an obese white male with a hospital gown on with adequate, grooming and eye contact. No abnormal movements except for mild psychomotor retardation. Cooperative with exam in no acute distress. He is sitting in a wheelchair, nonweightbearing. Speech was decreased rate and volume. Mood described as depressed, affect slightly subdued. Thought process organized. Thought content: Patient denied any homicidal ideation but does endorse a passive wish in suicidal thoughts given that insurmountable circumstances he feels he is facing, there were no delusions reported or noted, he denies any auditory or visual hallucinations. Attention and concentration appeared intact and memory appeared reliable but none were formally tested. He is alert and oriented x3. Insight and judgment are limited and impulse control is limited. Vitals/I&O/Wt Last Vital Signs Temp 98.1 F 04/16/20 06:00 Pulse 84 04/16/20 06:00 Resp 17 04/16/20 06:00 BP 154/88 04/16/20 06:00 Pulse Ox 97 04/16/20 06:00 04/15/20 04/16/20 04/16/20 22:59 06:59 14:59 Output Total 475 / 475 Balance -475 / -475 Weight last 48 hrs Weight 141.43 kg Physical Exam Urinary Catheter Management^: Ingram: Cath Placed During This Visit: yes, but has since been removed by the nurse Urinary Catheter Date of Insertion: 04/08/20 Urinary Catheter Time of Insertion: 11:45 Date Urinary Catheter Removed: 04/08/20 Time Urinary Catheter Discontinued: 13:54 Data NPU : 04/15/20 02:00 04/15/20 02:00 A&P Additional A&P Information (1) Closed supracondylar fracture of femur: (2) Anika-prosthetic fracture around prosthetic knee: (3) Fracture of femur: (4) Fall: Additional A&P Information (1) Atrial fibrillation: (2) S/P total knee arthroplasty: (3) Chest pain: (4) Hypertension: (5) Diabetes: (6) Anxiety: (7) Mood disorder: (8) Suicidal thoughts: (9) Adjustment disorder with mixed disturbance of emotions and conduct: This is a 54-year-old white male with a recent history of difficulties after his most recent divorce with some history of addiction who presented to the emergency department after a fall which led to a fractured femur, subsequent surgery and limited convalescence who presents now without his job and reporting suicidal thoughts. 1. Continue current medication. We will increase Abilify to 10 mg p.o. p.m. and Zoloft to 150 mg p.o. every morning. 2. Continue every 15 minute checks for safety. 3. Follow any recommendations from PT/OT and transferring DrAvel For appropriate care status post surgical repair of broken femur. 4. Encourage individual, group and milieu therapy. 5. Encourage sober living treatment after discharge at the highest level of care to which he is willing to commit. Involuntary Hold Information 96 Hour Hold: 96 Hour Involuntary Admission: No Attestations NPU Medical Necessity Statement*: Inpatient hospitalization is medically necessary and the clinically appropriate intervention at this time. We will monitor medication and make changes as indicated. He will be in the hospital for over 2 midnights. Likely length of stay 4-6 days. Coding Level of Care Code Acute Senior Web Architect for [facility]
[2020-04-16 11:24] LABS: Glucose Point of Care 203 mg/dL (70-110)
[2020-04-16 13:52] VITALS: BP 96/65; PULSE 68; RESP 18; TEMP 36.4; O2SAT 95
--- NOTE | 2020-04-16 15:01 | PC.OT ---
See AMATO note dated 04/16/20 to see patient progress. Patient transferred to NPU 04/15/20 versus returning home. Patient has met occupational therapy goals and will be discharged from skilled occupational therapy at this time.
[2020-04-16] MEDS: TRAMadol 50 mg Tablet 25 MG PO ×2 (15:15→20:34)
[2020-04-16 16:32] LABS: Glucose Point of Care 195 mg/dL (70-110)
--- NOTE | 2020-04-16 16:32 | P.PN_ITS ---
Subjective Subjective: Interval history: This morning patient was examined, he is in a wheelchair, looking out the window, eating nuts, sipping Pepsi, he tells me that his mood is about the same, is complaining of some right shoulder pain, right change shoulder pain with range of motion, tells me that he was told that he had rotator cuff tear, has received steroid injections in the past, he has been using his arms more for ambulation, and felt his right shoulder pop Vitals/I&O/Wt Last Vital Signs Temp 97.5 F L 04/16/20 13:52 Pulse 68 04/16/20 13:52 Resp 18 04/16/20 13:52 BP 96/65 04/16/20 13:52 Pulse Ox 95 04/16/20 13:52 04/16/20 04/16/20 04/16/20 06:59 14:59 22:59 Output Total 475 / 475 Balance -475 / -475 Weight last 48 hrs Weight 141.43 kg Physical Exam Const: COMMON NORMALS: no acute distress and patient oriented x3 HENMT: COMMON NORMALS: normocephalic HEAD & SCALP: normocephalic Neck/C-Spine: COMMON NORMALS: no JVD Resp: COMMON NORMALS: normal respiratory effort, No retractions, No use of accessory muscles and clear to auscultation bilaterally AUSCULTATION: clear to auscultation bilaterally Cardio: COMMON NORMALS: no JVD, regular rate, regular rhythm, S1 normal heart sound present and S2 normal heart sound present RATE: regular rate RHYTHM: regular rhythm HEART SOUNDS: S1 normal heart sound present and S2 normal heart sound present GI: COMMON NORMALS: Normal to inspection, nondistended, normoactive bowel sounds present, Soft to palpation, non-tender, No hepatosplenomegaly present, no masses and no bruits PALPATION: Yes Soft to palpation and Yes No hepat osplenomegaly present Extremity: COMMON NORMALS: capillary refill normal, no clubbing, cyanosis or edema, no calf tenderness and no pedal edema OTHER: Right shoulder, decreased range of motion above 90 degree angle Neuro: COMMON NORMALS: patient oriented x3 Psych: COMMON NORMALS: mental status grossly normal ATTITUDE: Yes Withdrawn affect present ACTIVITY/MOTOR BEHAVIOR: Yes Avoids eye contact (attititude/behavior) MOOD & AFFECT: Yes depressed mood Urinary Catheter Management^: Ingram: Cath Placed During This Visit: yes, but has since been removed by the nurse Urinary Catheter Date of Insertion: 04/08/20 Urinary Catheter Time of Insertion: 11:45 Date Urinary Catheter Removed: 04/08/20 Time Urinary Catheter Discontinued: 13:54 Data : 04/15/20 02:00 04/15/20 02:00 A&P Assessment and plan (1) Fall: Status: Acute (2) Fracture of femur: Status: Acute Qualifiers: Encounter type: initial encounter Femur location: distal, unspecified portion Fracture morphology: unspecified fracture morphology Fracture type: closed Laterality: left Qualified Code(s): S72.402A - Unspecified fracture of lower end of left femur, initial encounter for closed fracture (3) Atrial fibrillation: Status: Acute Qualifiers: Atrial fibrillation type: unspecified chronic Qualified Code(s): I48.20 - Chronic atrial fibrillation, unspecified (4) Congestive heart failure: Status: Acute Qualifiers: Heart failure type: unspecified Heart failure chronicity: chronic Qualified Code(s): I50.9 - Heart failure, unspecified (5) Hypertension: Status: Acute Qualifiers: Hypertension type: essential hypertension Qualified Code(s): I10 - Essential (primary) hypertension (6) Diabetes: Status: Acute Qualifiers: Diabetes mellitus complication status: with hyperglycemia Diabetes mellitus custodial insulin use: with ocean transportation intermediary use Diabetes mellitus type: type 2 Qualified Code(s): E11.65 - Type 2 diabetes mellitus with hyperglycemia; Z79.4 - ferry terminal agent (current) use of insulin (7) Anxiety: Status: Acute (8) S/P total knee arthroplasty: Status: Acute Qualifiers: Laterality: left Qualified Code(s): Z96.652 - Presence of left artificial knee joint (9) COVID-19: Status: Acute (10) Suicidal ideation: -Not actively suicidal -Certainly has depression and anxiety -Very difficult situation, poor social situation -Seen by Dr. Martin -Plan to continue current medication Status: Acute Additional A&P Information 54-year-old man with past medical history of atrial fibrillation, congestive heart failure type 2 diabetes mellitus, recent COVID-19 presents after having a fall and found to have left femoral fracture. Given recurrent active suicidal ideation, currently n.p.o., Dr. Martin to see Left shoulder pain, likely chronic rotator cuff tear, tramadol for pain, continue range of motion exercises Fall: Mechanical as he twisted his ankles while walking on the rocks. Left fracture femur: Postop day 8 Anticoagulation, physical therapy, perioperative antibiotics, weightbearing as per orthopedics. Continue Ultram in addition to celecoxib Atrial fibrillation: Rate controlled at present. Continue home dose of carvedilol. Telemetry monitoring. On home Eliquis Congestive heart failure: Euvolemic at present. Patient takes forsemide 40 mg twice daily, spironolactone 25 mg daily at home. Continues with home doses of medication. Last echocardiogram from April 2019 shows an EF 55% with grade 2 diastolic dysfunction with mildly dilated LA. Hypertension: Known goal blood pressure less than 140/90 Hg. For now continue with home dose of amlodipine. We will continue to monitor blood pressures. Type 2 diabetes mellitus: Continue with home dose of Lantus 55 units twice daily. Continue with insulin sliding scale moderate dose protocol. Will monitor insulin requirements in next 24 hours and if needed will increase Lantus accordingly. HbA1c 9.3. Anemia: Baseline hemoglobin around 11. 9.4 today We will continue to monitor. Repeat hemoglobin afternoon. Transfuse if hemoglobin falls below 8 because of history of congestive heart failure and atrial fibrillation. Continue with monitoring hemoglobin daily for now. COVID-19: Tested positive in December. Has finished his quarantine. Asymptomatic at present. Chest x-ray. COVID-19 PCR has been sent from the ER. For now isolation precautions. Anxiety: Continue with home dose of and baseline, Zoloft. Continue other chronic medication like hydroxyzine, gabapentin, Requip Pancytopenia, white blood cell count 4.8, hemoglobin 9.4, platelet count 145 likely secondary to fall, postsurgical, continue to monitor for fevers Full code. Carb consistent cardiac diet. Eliquis for DVT prophylaxis Discharge planning: Unfortunately placement to shelter at this point is difficult, patient tells caseworkers that he thinks he has Blue Cross Blue Shield is not valid as he has not paid his bills in some time. In addition patient owes money to a local shelter. Were trying [facility] shelter at this point. Unfortunately also does not have a certain living situation, has been working room from a friend, cannot accommodate him anymore, only reasonable option would be a correction Plan for today, continue physical therapy, currently the Neuropsych Unit Attestations Medical Necessity Statement*: Patient requires hospitalization for suicidal ideation, with femoral fracture Coding Level of Care Code Acute Pediatric Audiologist for [facility] Fwd Diagnoses Fall W19.XXXA Fracture of femur S72.402A Encounter type: initial encounter Femur location: distal, unspecified portion Fracture morphology: unspecified fracture morphology Fracture type: closed Laterality: left Atrial fibrillation I48.20 Atrial fibrillation type: unspecified chronic Congestive heart failure I50.9 Heart failure type: unspecified Heart failure chronicity: chronic Hypertension I10 Hypertension type: essential hypertension Diabetes E11.65; Z79.4 Diabetes mellitus complication status: with hyperglycemia Diabetes mellitus custodial insulin use: with custodial use Diabetes mellitus type: type 2 Anxiety F41.9 S/P total knee arthroplasty Z96.652 Laterality: left COVID-19 U07.1 Suicidal ideation R45.851
[2020-04-16 19:59] LABS: Glucose Point of Care 203 mg/dL (70-110)
[2020-04-16] MEDS: ARIPiprazole 10 mg Tablet 5 MG PO (20:34)
[2020-04-16] MEDS: tizanidine 4 mg Tablet 2 MG PO (20:34)
[2020-04-16 21:38] LABS: Basophils # 0.1 10^3/uL (0.0-0.1); Basophils % 1.5 %; Eosinophils # 0.3 10^3/uL (0.0-0.8); Eosinophils % 4.3 %; Lymphocytes # 1.5 10^3/uL (0.8-4.8); Mean Corpuscular HGB Conc 30.3 g/dL (30.0-36.0); Mean Corpuscular Hemoglobin 25.9 pg (28.0-34.0); Mean Corpuscular Volume 85.5 fL (80-94); Mean Platelet Volume 11.3 fL (7.4-10.4); Monocytes # 0.6 10^3/uL (0.2-0.9); Monocytes % 10.7 %; Neutrophils # 3.38 10^3/uL (1.8-7.7); Neutrophils % 58.2 %; Nucleated Red Blood Cells % 0 %; Platelet Count 182 10^3/cmm (130-400); Red Blood Count 3.86 10^6/uL (4.1-5.3); Red Cell Distribution Width 18.4 % (12.1-15.1); White Blood Count 5.8 10^3/uL (4.0-10.0)
[2020-04-16 21:54] LABS: Alanine Aminotransferase 21 U/L (0-41); Albumin Level 3.1 g/dL (3.5-5.2); Alkaline Phosphatase 258 IU/L (40-130); Anion Gap 11.2 (5-19); Aspartate Amino Transferase 38 U/L (0-40); Blood Urea Nitrogen 20 mg/dL (6-20); Carbon Dioxide 29 mmol/L (22-29); Chloride 97 mmol/L (98-107); Glomerular Filtration Rate 78.2 mL/min (90-130); Glucose 206 mg/dL (65-115); Osmolality Calculated 285 mOsm/kg (285-295); Phosphorus 4.2 mg/dL (2.5-4.5); Potassium 4.2 mmol/L (3.5-5.1); Sodium 133 mmol/L (136-145); Total Bilirubin 0.8 mg/dL (0.15-1.2); Total Protein 7.1 g/dL (6.6-8.7)
[2020-04-16 22:00] VITALS: BP 136/74; PULSE 90; RESP 16; TEMP 36.6; O2SAT 96
[2020-04-17 06:00] VITALS: BP 110/75; PULSE 79; RESP 16; TEMP 36.6; O2SAT 97
[2020-04-17 06:35] LABS: Glucose Point of Care 89 mg/dL (70-110)
[2020-04-17] MEDS: insulin glargine 100 units/1 mL 55 UNIT SUBCUT ×2 (08:55→20:13)
[2020-04-17] MEDS: CELEcoxib 200 mg Capsule PO ×2 (08:55→16:47)
[2020-04-17] MEDS: gabapentin 300 mg Capsule 600 MG PO ×3 (08:56→20:10)
[2020-04-17] MEDS: famotidine 20 mg Tablet PO ×2 (08:56→16:47)
[2020-04-17] MEDS: acetaminophen 500 mg Tablet 1000 MG PO ×2 (08:56→16:47)
[2020-04-17] MEDS: ropinirole 1 mg Tablet PO ×2 (08:56→20:09)
[2020-04-17] MEDS: sertraline 100 mg Tablet 150 MG PO (08:56)
[2020-04-17] MEDS: FUROsemide 40 mg Tablet PO ×2 (08:57→16:47)
[2020-04-17] MEDS: docusate sodium 100 mg Capsule PO ×2 (08:57→16:47)
[2020-04-17] MEDS: carvedilol 6.25 mg Tablet PO ×2 (08:57→20:10)
[2020-04-17] MEDS: hyDROXYzine 25 mg Capsule PO ×3 (08:57→20:10)
[2020-04-17] MEDS: amlodipine 10 mg Tablet PO (08:57)
[2020-04-17] MEDS: apixaban 5 mg Tablet PO ×2 (08:57→16:47)
[2020-04-17] MEDS: ferrous gluconate 324 mg Tablet PO ×2 (08:57→16:47)
[2020-04-17] MEDS: multivitamin therapeutic Tablet 1 TAB PO (08:57)
[2020-04-17] MEDS: spironolactone 25 mg Tablet 50 MG PO (08:57)
[2020-04-17 11:18] LABS: Glucose Point of Care 207 mg/dL (70-110)
--- NOTE | 2020-04-17 13:05 | P.PN_ITS ---
Subjective Subjective: Interval history: Patient was examined, he sitting up in bed, has no complaints, no fevers, chills, nausea, vomiting, has pain in his left knee, but overall doing better Vitals/I&O/Wt Last Vital Signs Temp 97.9 F 04/17/20 06:00 Pulse 79 04/17/20 06:00 Resp 16 04/17/20 06:00 BP 110/75 04/17/20 06:00 Pulse Ox 97 04/17/20 06:00 04/16/20 04/17/20 04/17/20 22:59 06:59 14:59 Intake Total 900 / 900 Output Total 675 / 1150 Balance 225 / -250 Weight last 48 hrs Weight 142.882 kg Physical Exam Const: COMMON NORMALS: no acute distress and patient oriented x3 HENMT: COMMON NORMALS: normocephalic HEAD & SCALP: normocephalic Neck/C-Spine: COMMON NORMALS: no JVD Resp: COMMON NORMALS: normal respiratory effort, No retractions, No use of accessory muscles and clear to auscultation bilaterally AUSCULTATION: clear to auscultation bilaterally Cardio: COMMON NORMALS: no JVD, regular rate, regular rhythm, S1 normal heart sound present and S2 normal heart sound present RATE: regular rate RHYTHM: regular rhythm HEART SOUNDS: S1 normal heart sound present and S2 normal heart sound present GI: COMMON NORMALS: Normal to inspection, nondistended, normoactive bowel sounds present, Soft to palpation, non-tender, No hepatosplenomegaly present, no masses and no bruits PALPATION: Yes Soft to palpation and Yes No hepatosplenomegaly present Extremity: COMMON NORMALS: capillary refill normal, no clubbing, cyanosis or edema, no calf tenderness and no pedal edema NARRATIVE EXTREMITY EXAM: Left leg in immobilizer OTHER: Right shoulder, decreased range of motion above 90 degree angle Neuro: COMMON NORMALS: patient oriented x3 Psych: COMMON NORMALS: mental status grossly normal ATTITUDE: Yes Withdrawn affect present ACTIVITY/MOTOR BEHAVIOR: Yes Avoids eye contact (attititude/behavior) MOOD & AFFECT: Yes depressed mood Urinary Catheter Management^: Ingram: Cath Placed During This Visit: yes, but has since been removed by the nurse Urinary Catheter Date of Insertion: 04/08/20 Urinary Catheter Time of Insertion: 11:45 Date Urinary Catheter Removed: 04/08/20 Time Urinary Catheter Discontinued: 13:54 Data : 04/16/20 21:28 04/16/20 21:28 A&P Assessment and plan (1) Fall: Status: Acute (2) Fracture of femur: Status: Acute Qualifiers: Encounter type: initial encounter Femur location: distal, unspecified portion Fracture morphology: unspecified fracture morphology Fracture type: c losed Laterality: left Qualified Code(s): S72.402A - Unspecified fracture of lower end of left femur, initial encounter for closed fracture (3) Atrial fibrillation: Status: Acute Qualifiers: Atrial fibrillation type: unspecified chronic Qualified Code(s): I48.20 - Chronic atrial fibrillation, unspecified (4) Congestive heart failure: Status: Acute Qualifiers: Heart failure type: unspecified Heart failure chronicity: chronic Qualified Code(s): I50.9 - Heart failure, unspecified (5) Hypertension: Status: Acute Qualifiers: Hypertension type: essential hypertension Qualified Code(s): I10 - Essential (primary) hypertension (6) Diabetes: Status: Acute Qualifiers: Diabetes mellitus complication status: with hyperglycemia Diabetes mellitus intermediate school teacher insulin use: with intermediate school teacher use Diabetes mellitus type: type 2 Qualified Code(s): E11.65 - Type 2 diabetes mellitus with hyperglycemia; Z79.4 - superintendent terminal (current) use of insulin (7) Anxiety: Status: Acute (8) S/P total knee arthroplasty: Status: Acute Qualifiers: Laterality: left Qualified Code(s): Z96.652 - Presence of left artificial knee joint (9) COVID-19: Status: Acute (10) Suicidal ideation: -Not actively suicidal -Certainly has depression and anxiety -Very difficult situation, poor social situation -Seen by Dr. Martin -Plan to continue current medication Status: Acute Additional A&P Information 54-year-old man with past medical history of atrial fibrillation, congestive heart failure type 2 diabetes mellitus, recent COVID-19 presents after having a fall and found to have left femoral fracture. Given recurrent active suicidal ideation, currently n.p.u., Dr. Martin to see Left shoulder pain, likely chronic rotator cuff tear, tramadol for pain, continue range of motion exercises Fall: Mechanical as he twisted his ankles while walking on the rocks. Left fracture femur: Postop day 8 Anticoagulation, physical therapy, perioperative antibiotics, weightbearing as per orthopedics. Continue Ultram in addition to celecoxib Atrial fibrillation: Rate controlled at present. Continue home dose of carvedilol. Telemetry monitoring. On home Eliquis Congestive heart failure: Euvolemic at present. Patient takes forsemide 40 mg twice daily, spironolactone 25 mg daily at home. Continues with home doses of medication. Last echocardiogram from April 2019 shows an EF 55% with grade 2 diastolic dysfunction with mildly dilated LA. Hypertension: Known goal blood pressure less than 140/90 Hg. For now continue with home dose of amlodipine. We will continue to monitor blood pressures. Type 2 diabetes mellitus: Continue with home dose of Lantus 55 units twice daily. Continue with insulin sliding scale moderate dose protocol. Will monitor insulin requirements in next 24 hours and if needed will increase Lantus accordingly. HbA1c 9.3. Anemia: Baseline hemoglobin around 11. 9.4 today We will continue to monitor. Repeat hemoglobin afternoon. Transfuse if hemoglobin falls below 8 because of history of congestive heart failure and atrial fibrillation. Continue with monitoring hemoglobin daily for now. COVID-19: Tested positive in December. Has finished his quarantine. Asymptomatic at present. Chest x-ray. COVID-19 PCR has been sent from the ER. For now isolation precautions. Anxiety: Continue with home dose of and baseline, Zoloft. Continue other chronic medication like hydroxyzine, gabapentin, Requip Pancytopenia, white blood cell count 4.8, hemoglobin 9.4, platelet count 145 likely secondary to fall, postsurgical, continue to monitor for fevers Full code. Carb consistent cardiac diet. Eliquis for DVT prophylaxis Discharge planning: Unfortunately placement to halfway at this point is difficult, patient tells caseworkers that he thinks he has Blue Cross Blue Shield is not valid as he has not paid his bills in some time. In addition patient owes money to a local halfway. Were trying [facility] halfway at this point. Unfortunately also does not have a certain living situation, has been working room from a friend, cannot accommodate him anymore, only reasonable option would be a fdc Plan for today, continue physical therapy, currently the Neuropsych Unit Attestations Medical Necessity Statement*: Patient requires hospitalization for left knee fracture, status post surgery, now with suicidal ideation, Neuropsych Unit Coding Level of Care Code Acute Classified Ad Clerk for [facility] Fwd Diagnoses Fall W19.XXXA Fracture of femur S72.402A Encounter type: initial encounter Femur location: distal, unspecified portion Fracture morphology: unspecified fracture morphology Fracture type: closed Laterality: left Atrial fibrillation I48.20 Atrial fibrillation type: unspecified chronic Congestive heart failure I50.9 Heart failure type: unspecified Heart failure chronicity: chronic Hypertension I10 Hypertension type: essential hypertension Diabetes E11.65; Z79.4 Diabetes mellitus complication status: with hyperglycemia Diabetes mellitus senior care insulin use: with intermediate school teacher use Diabetes mellitus type: type 2 Anxiety F41.9 S/P total knee arthroplasty Z96.652 Laterality: left COVID-19 U07.1 Suicidal ideation R45.857
[2020-04-17 14:00] VITALS: BP 117/73; PULSE 75; RESP 20; TEMP 36.1
[2020-04-17 16:31] LABS: Glucose Point of Care 202 mg/dL (70-110)
--- NOTE | 2020-04-17 17:55 | PM.NPN ---
Subjective NPU Subjective: Interval history: Chun presents today reporting that he is really anxious about moving forward as the doctors have reported to him that he was kelly to keep his leg and he is afraid he is not going to be able to be in the situation where it safe to rehab his leg. We discussed working with the treatment team in the morning to figure out what the options are given his absence of insurance. He is working on some different possibilities, since the family he is reached out to thus far have not been willing to work with him. He is also fairly stressed about not having a job, short-term disability and being told that he should not work for the next several months. Mental Status Exam MSE Comments: This is an obese white male with a hospital gown on with adequate, grooming and eye contact. No abnormal movements except for mild psychomotor retardation. Cooperative with exam in no acute distress. He is sitting in a wheelchair, nonweightbearing. Speech was decreased rate and volume. Mood described as depressed, affect slightly subdued. Thought process organized. Thought content: Patient denied any homicidal ideation but does endorse a passive wish in suicidal thoughts given that insurmountable circumstances he feels he is facing, there were no delusions reported or noted, he denies any auditory or visual hallucinations. Attention and concentration appeared intact and memory appeared reliable but none were formally tested. He is alert and oriented x3. Insight and judgment are limited and impulse control is limited. Vitals/I&O/Wt Last Vital Signs Temp 97.8 F 04/17/20 22:00 Pulse 77 04/17/20 22:00 Resp 18 04/17/20 22:00 BP 126/82 04/17/20 22:00 Pulse Ox 96 04/17/20 22:00 04/17/20 04/17/20 04/18/20 14:59 22:59 06:59 Intake Total 900 / 900 Output Total 675 / 675 Balance 225 / 225 Weight last 48 hrs Weight 142.882 kg Physical Exam Urinary Catheter Management^: Ingram: Cath Placed During This Visit: yes, but has since been removed by the nurse Urinary Catheter Date of Insertion: 04/08/20 Urinary Catheter Time of Insertion: 11:45 Date Urinary Catheter Removed: 04/08/20 Time Urinary Catheter Discontinued: 13:54 Data NPU : 04/17/20 19:33 04/17/20 19:33 A&P Additional A&P Information (1) Closed supracondylar fracture of femur: (2) Anika-prosthetic fracture around prosthetic knee: (3) Fracture of femur: (4) Fall: Additional A&P Information (1) Atrial fibrillation: (2) S/P total knee arthroplasty: (3) Chest pain: (4) Hypertension: (5) Diabetes: (6) Anxiety: (7) Mood disorder: (8) Suicidal thoughts: (9) Adjustment disorder with mixed disturbance of emotions and conduct: This is a 54-year-old white male with a recent history of difficulties after his most recent divorce with some history of addiction who presented to the emergency department after a fall which led to a fractured femur, subsequent surgery and limited convalescence who presents now without his job and reporting suicidal thoughts. 1. Continue current medication. 2. Continue every 15 minute checks for safety. 3. Follow any recommendations from PT/OT and transferring DrAvel For appropriate care status post surgical repair of broken femur. 4. Encourage individual, group and milieu therapy. 5. Encourage sober living treatment after discharge at the highest level of care to which he is willing to commit. Involuntary Hold Information 96 Hour Hold: 96 Hour Involuntary Admission: No Attestations NPU Medical Necessity Statement*: Inpatient hospitalization is medically necessary and the clinically appropriate intervention at this time. We will monitor medication and make changes as indicated. Likely length of stay 4-6 days. Coding Level of Care Code Acute Test Engineering Technician for Shreya Espinoza
[2020-04-17 19:41] LABS: Basophils # 0.1 10^3/uL (0.0-0.1); Basophils % 1.2 %; Eosinophils # 0.2 10^3/uL (0.0-0.8); Eosinophils % 3.5 %; Hematocrit 37.7 % (42.0-52.0); Hemoglobin 11.3 g/dL (11.7-16.6); Lymphocytes # 1.4 10^3/uL (0.8-4.8); Lymphocytes % 24.6 %; Mean Corpuscular Hemoglobin 25.9 pg (28.0-34.0); Mean Corpuscular Volume 86.3 fL (80-94); Mean Platelet Volume 10.5 fL (7.4-10.4); Monocytes # 0.5 10^3/uL (0.2-0.9); Monocytes % 9.2 %; Nucleated Red Blood Cells % 0 %; Platelet Count 214 10^3/cmm (130-400); Red Blood Count 4.37 10^6/uL (4.1-5.3); Red Cell Distribution Width 18.9 % (12.1-15.1); White Blood Count 5.7 10^3/uL (4.0-10.0)
[2020-04-17 19:55] LABS: Glucose Point of Care 153 mg/dL (70-110)
[2020-04-17 19:57] LABS: Alanine Aminotransferase 22 U/L (0-41); Albumin Level 3.5 g/dL (3.5-5.2); Alkaline Phosphatase 282 IU/L (40-130); Anion Gap 11.9 (5-19); Aspartate Amino Transferase 44 U/L (0-40); Blood Urea Nitrogen 19 mg/dL (6-20); Calcium 9.2 mg/dL (8.5-10.5); Carbon Dioxide 31 mmol/L (22-29); Chloride 102 mmol/L (98-107); Globulin 4.2 g/dL (1.3-4.6); Glomerular Filtration Rate 78.2 mL/min (90-130); Glucose 144 mg/dL (65-115); Magnesium 2.1 mg/dL (1.7-2.3); Osmolality Calculated 295 mOsm/kg (285-295); Phosphorus 4.9 mg/dL (2.5-4.5); Potassium 4.9 mmol/L (3.5-5.1); Sodium 140 mmol/L (136-145); Total Bilirubin 0.8 mg/dL (0.15-1.2); Total Protein 7.7 g/dL (6.6-8.7)
[2020-04-17] MEDS: ARIPiprazole 10 mg Tablet PO (20:10)
[2020-04-17] MEDS: tizanidine 4 mg Tablet 2 MG PO (20:10)
[2020-04-17] MEDS: TRAMadol 50 mg Tablet 25 MG PO (20:11)
--- NOTE | 2020-04-17 21:21 | PC.NURSE ---
WHEELING SELF AROUND HALLWAY, DENIES WANTING TO HARM SELF. TOOK BRACE OFF OF LEFT LEG, HAS 31 DESIRAE IN LEFT UPPER, OUTER THIGH. SAYS HOPES TO GET THEM REMOVED SOON. EDSON LANDERS PUT ON PATIENT PER ANGLE JAIME. NO REDNESS NOTED AT INCISION SITE, HAS OP SITE IN PLACE.
[2020-04-17] MEDS: nystatin powder 15 gm Btl 1 APPLIC TOPICAL (21:22)
[2020-04-17 22:00] VITALS: BP 126/82; PULSE 77; RESP 18; TEMP 36.6; O2SAT 96
[2020-04-18 01:20] LABS: Glucose Point of Care 63 mg/dL (70-110)
[2020-04-18 06:00] VITALS: BP 127/77; PULSE 95; RESP 16; TEMP 36.8; O2SAT 94
[2020-04-18 07:06] LABS: Basophils # 0.1 10^3/uL (0.0-0.1); Basophils % 1.3 %; Eosinophils # 0.2 10^3/uL (0.0-0.8); Eosinophils % 3.9 %; Hematocrit 33.4 % (42.0-52.0); Hemoglobin 10.1 g/dL (11.7-16.6); Lymphocytes # 1.3 10^3/uL (0.8-4.8); Mean Corpuscular HGB Conc 30.2 g/dL (30.0-36.0); Mean Corpuscular Hemoglobin 25.8 pg (28.0-34.0); Mean Corpuscular Volume 85.2 fL (80-94); Mean Platelet Volume 11.6 fL (7.4-10.4); Monocytes # 0.4 10^3/uL (0.2-0.9); Monocytes % 9.1 %; Neutrophils % 56.3 %; Nucleated Red Blood Cells % 0 %; Platelet Count 166 10^3/cmm (130-400); Red Blood Count 3.92 10^6/uL (4.1-5.3); Red Cell Distribution Width 18.6 % (12.1-15.1); White Blood Count 4.6 10^3/uL (4.0-10.0)
[2020-04-18 07:21] LABS: Alanine Aminotransferase 20 U/L (0-41); Albumin Level 3.2 g/dL (3.5-5.2); Alkaline Phosphatase 226 IU/L (40-130); Anion Gap 11.2 (5-19); Aspartate Amino Transferase 35 U/L (0-40); Blood Urea Nitrogen 20 mg/dL (6-20); Calcium 8.9 mg/dL (8.5-10.5); Carbon Dioxide 29 mmol/L (22-29); Chloride 101 mmol/L (98-107); Globulin 3.5 g/dL (1.3-4.6); Glomerular Filtration Rate 78.2 mL/min (90-130); Glucose 93 mg/dL (65-115); Magnesium 1.8 mg/dL (1.7-2.3); Osmolality Calculated 286 mOsm/kg (285-295); Phosphorus 5.3 mg/dL (2.5-4.5); Potassium 4.2 mmol/L (3.5-5.1); Sodium 137 mmol/L (136-145); Total Bilirubin 0.7 mg/dL (0.15-1.2); Total Protein 6.7 g/dL (6.6-8.7)
[2020-04-18] MEDS: spironolactone 25 mg Tablet 50 MG PO (07:39)
[2020-04-18] MEDS: ferrous gluconate 324 mg Tablet PO ×2 (07:39→17:31)
[2020-04-18] MEDS: ropinirole 1 mg Tablet PO ×2 (07:39→21:38)
[2020-04-18] MEDS: famotidine 20 mg Tablet PO ×2 (07:40→21:39)
[2020-04-18] MEDS: hyDROXYzine 25 mg Capsule PO ×3 (07:40→21:39)
[2020-04-18] MEDS: apixaban 5 mg Tablet PO ×2 (07:40→21:39)
[2020-04-18] MEDS: CELEcoxib 200 mg Capsule PO ×2 (07:41→21:40)
[2020-04-18] MEDS: multivitamin therapeutic Tablet 1 TAB PO (07:41)
[2020-04-18] MEDS: gabapentin 300 mg Capsule 600 MG PO ×3 (07:41→21:37)
[2020-04-18] MEDS: carvedilol 6.25 mg Tablet PO ×2 (07:41→21:38)
[2020-04-18] MEDS: docusate sodium 100 mg Capsule PO ×2 (07:42→21:38)
[2020-04-18] MEDS: amlodipine 10 mg Tablet PO (07:42)
[2020-04-18] MEDS: FUROsemide 40 mg Tablet PO ×2 (07:42→21:40)
[2020-04-18] MEDS: nystatin powder 15 gm Btl 1 APPLIC TOPICAL (07:43)
[2020-04-18] MEDS: sertraline 100 mg Tablet 150 MG PO (07:43)
[2020-04-18] MEDS: insulin glargine 100 units/1 mL 55 UNIT SUBCUT ×2 (07:48→21:40)
[2020-04-18 12:06] LABS: Glucose Point of Care 213 mg/dL (70-110)
[2020-04-18 14:00] VITALS: BP 118/69; PULSE 74; RESP 18; TEMP 36.9; O2SAT 96
--- NOTE | 2020-04-18 14:10 | PM.MISC ---
Miscellaneous Note Purpose of Documentation: Informational Note: The patient will require nonweightbearing for at least 2 to 3 months on his left lower extremity. I have asked for madiha to be removed today and the wound to be Steri-Stripped. There is no further orthopedic issue at this point other than to maintain nonweightbearing and have appropriate outpatient care.
[2020-04-18 16:04] LABS: Glucose Point of Care 126 mg/dL (70-110)
--- NOTE | 2020-04-18 17:59 | P.PN_ITS ---
Subjective NPU Subjective: Interval history: Chun presents today reporting that things are going as good as can be expected. He did meet with social workers and he has been active in trying to identify reasonable options for his psychosocial challenges. There are some leads and he is optimistic about the possibility that there might be some answers to his circumstance. He denies any major i ssues from the medication changes. He denies any specific side effects. He still has significant anxiety, depression especially worries about his leg healing appropriately. Mental Status Exam MSE Comments: This is an obese white male with a hospital gown on with adequate, grooming and eye contact. No abnormal movements except for mild psychomotor retardation. Cooperative with exam in no acute distress. He lying hospital bed. Speech was slightly decreased rate and volume. Mood described as depressed, affect slightly subdued. Thought process organized. Thought content: Patient denied any homicidal ideation but does endorse a passive wish in suicidal thoughts given that insurmountable circumstances he feels he is facing, there were no delusions reported or noted, he denies any auditory or visual hallucinations. Attention and concentration appeared intact and memory appeared reliable but none were formally tested. He is alert and oriented x3. Insight and judgment are improving and impulse control is limited. Vitals/I&O/Wt Last Vital Signs Temp 97.8 F 04/18/20 21:18 Pulse 80 04/18/20 21:18 Resp 16 04/18/20 21:18 BP 117/74 04/18/20 21:18 Pulse Ox 97 04/18/20 21:18 Physical Exam Urinary Catheter Management^: Ingram: Cath Placed During This Visit: yes, but has since been removed by the nurse Urinary Catheter Date of Insertion: 04/08/20 Urinary Catheter Time of Insertion: 11:45 Date Urinary Catheter Removed: 04/08/20 Time Urinary Catheter Discontinued: 13:54 Data NPU : 04/18/20 06:55 04/18/20 06:55 A&P Additional A&P Information (1) Closed supracondylar fracture of femur: (2) Anika-prosthetic fracture around prosthetic knee: (3) Fracture of femur: (4) Fall: Additional A&P Information (1) Atrial fibrillation: (2) S/P total knee arthroplasty: (3) Chest pain: (4) Hypertension: (5) Diabetes: (6) Anxiety: (7) Mood disorder: (8) Suicidal thoughts: (9) Adjustment disorder with mixed disturbance of emotions and conduct: This is a 54-year-old white male with a recent history of difficulties after his most recent divorce with some history of addiction who presented to the emergency department after a fall which led to a fractured femur, subsequent surgery and limited convalescence who presents now without his job and reporting suicidal thoughts. 1. Continue current medication. 2. Continue every 15 minute checks for safety. 3. Follow any recommendations from PT/OT and transferring DrAvel For appropriate care status post surgical repair of broken femur. 4. Encourage individual, group and milieu therapy. 5. Encourage sober living treatment after discharge at the highest level of car e to which he is willing to commit. 6. Continue to work with treatment team to find a viable discharge plan. Involuntary Hold Information 96 Hour Hold: 96 Hour Involuntary Admission: No Attestations NPU Medical Necessity Statement*: Inpatient hospitalization is medically necessary and the clinically appropriate intervention at this time. We will monitor medication and make changes as indicated. Likely length of stay 4-6 days. Coding Level of Care Code Acute French Folder for Shreya Espinoza
[2020-04-18 21:18] VITALS: BP 117/74; PULSE 80; RESP 16; TEMP 36.6; O2SAT 97
[2020-04-18 21:33] LABS: Glucose Point of Care 197 mg/dL (70-110)
[2020-04-18] MEDS: ARIPiprazole 10 mg Tablet PO (21:37)
[2020-04-18] MEDS: TRAMadol 50 mg Tablet 25 MG PO (22:49)
[2020-04-18] MEDS: tizanidine 4 mg Tablet 2 MG PO (22:51)
--- NOTE | 2020-04-19 01:26 | PC.NURSE ---
At approx. 2230 patient asked to speak with me. I went into room and patient stated while adjusting his self in bed he felt a pop in his left ( post surgical ) knee. He stated that he was having increased discomfort in his left knee since then. I assessed surgical wound, alignment, circulation and temperature all of which were WNL. I asked patient to explain type of discomfort, he stated its like a spasm / achy type. I asked him if he had orders for medication, did he want to try that before contacting the doctor? He was agreeable to that. I gave him his ordered analgesic and muscle relaxer at 22:49. He has been sleeping since about 15 minutes after medication was given.
--- NOTE | 2020-04-19 05:03 | PC.NURSE ---
Patient woke up at 0330 while I was emptying his urinal. I asked him how his knee was and he said no pain and feels good .
[2020-04-19 06:00] VITALS: BP 117/74; PULSE 75; RESP 18; TEMP 36.5; O2SAT 97
[2020-04-19 07:48] LABS: Glucose Point of Care 84 mg/dL (70-110)
[2020-04-19] MEDS: sertraline 100 mg Tablet 150 MG PO (08:37)
[2020-04-19] MEDS: docusate sodium 100 mg Capsule PO ×2 (08:37→21:16)
[2020-04-19] MEDS: amlodipine 10 mg Tablet PO (08:37)
[2020-04-19] MEDS: CELEcoxib 200 mg Capsule PO ×2 (08:37→21:13)
[2020-04-19] MEDS: ferrous gluconate 324 mg Tablet PO ×2 (08:38→17:29)
[2020-04-19] MEDS: spironolactone 25 mg Tablet 50 MG PO (08:38)
[2020-04-19] MEDS: FUROsemide 40 mg Tablet PO (08:38)
[2020-04-19] MEDS: carvedilol 6.25 mg Tablet PO ×2 (08:38→21:13)
[2020-04-19] MEDS: ropinirole 1 mg Tablet PO ×2 (08:38→21:13)
[2020-04-19] MEDS: multivitamin therapeutic Tablet 1 TAB PO (08:38)
[2020-04-19] MEDS: gabapentin 300 mg Capsule 600 MG PO ×3 (08:38→21:14)
[2020-04-19] MEDS: famotidine 20 mg Tablet PO ×2 (08:38→21:13)
[2020-04-19] MEDS: apixaban 5 mg Tablet PO (08:38)
[2020-04-19] MEDS: hyDROXYzine 25 mg Capsule PO ×3 (08:38→21:15)
[2020-04-19 11:31] LABS: Glucose Point of Care 156 mg/dL (70-110)
[2020-04-19 14:00] VITALS: BP 114/69; PULSE 71; RESP 18; TEMP 37.1; O2SAT 94
[2020-04-19 16:39] LABS: Glucose Point of Care 137 mg/dL (70-110)
--- NOTE | 2020-04-19 18:45 | P.PN_ITS ---
Subjective NPU Subjective: Interval history: Darin continues to work on options for discharge. He had an interview with an agency that assist people. He feels like the interview went well. Referral from [place] accident also were in touch really work on a viable discharge strategy to avoid Darin being in a situation where his leg is irreparably damaged or lost. He continues to have depression reported as we come up on the holiday and he is not connected with his children. He is eating okay, sleeping as well as can be expected. Mental Status Exam MSE Comments: This is an obese white male with a hospital gown on with adequate, grooming and eye contact. No abnormal movements except for mild psychomotor retardation. Cooperative with exam in no acute distress. He was up nonweightbearing in his wheelchair. Speech was slightly decreased rate and volume. Mood described as depressed, affect slightly subdued. Thought process organized. Thought content: Patient denied any homicidal ideation but does endorse a passive wish in suicidal thoughts given that insurmountable circumstances he feels he is facing, there were no delusions reported or noted, he denies any auditory or visual hallucinations. Attention and concentration appeared intact and memory appeared reliable but none were formally tested. He is alert and oriented x3. Insight and judgment are improving and impulse control is limited. Vitals/I&O/Wt Last Vital Signs Temp 98.4 F 04/20/20 03:24 Pulse 75 04/20/20 03:24 Resp 18 04/20/20 03:24 BP 109/68 04/20/20 03:24 Pulse Ox 97 04/20/20 03:24 Physical Exam Urinary Catheter Management^: Ingram: Cath Placed During This Visit: yes, but has since been removed by the nurse Urinary Catheter Date of Insertion: 04/08/20 Urinary Catheter Time of Insertion: 11:45 Date Urinary Catheter Removed: 04/08/20 Time Urinary Catheter Discontinued: 13:54 Data NPU : 04/18/20 06:55 04/18/20 06:55 A&P Additional A&P Information (1) Closed supracondylar fracture of femur: (2) Anika-prosthetic fracture around prosthetic knee: (3) Fracture of femur: (4) Fall: Additional A&P Information (1) Atrial fibrillation: (2) S/P total knee arthroplasty: (3) Chest pain: (4) Hypertension: (5) Diabetes: (6) Anxiety: (7) Mood disorder: (8) Suicidal thoughts: (9) Adjustment disorder with mixed disturbance of emotions and conduct: This is a 54-year-old white male with a recent history of difficulties after his most recent divorce with some history of addiction who presented to the emergency department after a fall which led to a fractured femur, subsequent surgery and limited convalescence who presents now without his job and reporting suicidal thoughts. 1. Continue current medication. 2. Continue every 15 minute checks for safety. 3. Follow any recommendations from PT/OT and transferring DrAvel For appropriate care status post surgical repair of broken femur. 4. Encourage individual, group and milieu therapy. 5. Encourage sober living treatment after discharge at the highest level of care to which he is willing to commit. 6. Continue to work with treatment team to find a viable discharge plan. Involuntary Hold Information 96 Hour Hold: 96 Hour Involuntary Admission: No Attestations NPU Medical Necessity Statement*: Inpatient hospitalization is medically necessary and the clinically appropriate intervention at this time. We will monitor medication and make changes as indicated. Likely length of stay 4-6 days. Coding Level of Care Code Acute Retail Account Specialist for Shreya Espinoza
[2020-04-19 20:30] LABS: Glucose Point of Care 125 mg/dL (70-110)
[2020-04-19] MEDS: tizanidine 4 mg Tablet 2 MG PO (21:15)
[2020-04-19] MEDS: ARIPiprazole 10 mg Tablet PO (21:15)
[2020-04-19] MEDS: insulin glargine 100 units/1 mL 55 UNIT SUBCUT (21:28)
[2020-04-19 22:00] VITALS: BP 109/68; PULSE 75; RESP 18; TEMP 36.9; O2SAT 97
--- NOTE | 2020-04-20 02:21 | PC.NURSE ---
PM ASSESSMENT PT GLUCOSE IS 125. V/S ARE ALL NORMAL, BREATH SOUNDS NORMAL, HEART SOUNDS ARE NORMAL pT IS RESTING IN HIS BED. PT DID SAY THAT HIS LEG IS PAINFUL AT TIMES. SUTURES ALL LOOK CLEAN, NOT DRAINING, AND ARE WELL APPROXIMATED. He reports having a hard time pushing the wheelchair at times. 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 Pt reports very little pain at this time. He is sleeping in his room. will continue to monitor
[2020-04-20 03:24] VITALS: BP 109/68; PULSE 75; RESP 18; TEMP 36.9; O2SAT 97
--- NOTE | 2020-04-20 04:16 | PC.NURSE ---
glucose 65 pt called naphthalene operator into room reporting feeling like his blood sugar was dropping. Glucose is 65. pt was given orange juice and we will retake blood sugar in 15 min.
[2020-04-20 04:18] LABS: Glucose Point of Care 65 mg/dL (70-110)
[2020-04-20 04:39] LABS: Glucose Point of Care 104 mg/dL (70-110)
[2020-04-20 06:00] VITALS: BP 105/66; PULSE 82; RESP 18; TEMP 36.3; O2SAT 91
[2020-04-20] MEDS: FUROsemide 40 mg Tablet PO ×2 (06:28→13:38)
[2020-04-20 06:53] LABS: Glucose Point of Care 99 mg/dL (70-110)
[2020-04-20] MEDS: insulin glargine 100 units/1 mL 55 UNIT SUBCUT ×2 (07:57→21:33)
[2020-04-20] MEDS: hyDROXYzine 25 mg Capsule PO ×3 (07:58→21:33)
[2020-04-20] MEDS: CELEcoxib 200 mg Capsule PO ×2 (07:58→21:33)
[2020-04-20] MEDS: apixaban 5 mg Tablet PO ×2 (07:58→21:33)
[2020-04-20] MEDS: docusate sodium 100 mg Capsule PO ×2 (07:58→21:33)
[2020-04-20] MEDS: ferrous gluconate 324 mg Tablet PO ×2 (07:59→16:53)
[2020-04-20] MEDS: ropinirole 1 mg Tablet PO ×2 (08:00→21:33)
[2020-04-20] MEDS: carvedilol 6.25 mg Tablet PO ×2 (08:00→21:33)
[2020-04-20] MEDS: multivitamin therapeutic Tablet 1 TAB PO (08:00)
[2020-04-20] MEDS: famotidine 20 mg Tablet PO ×2 (08:00→21:33)
[2020-04-20] MEDS: gabapentin 300 mg Capsule 600 MG PO ×3 (08:00→21:33)
[2020-04-20] MEDS: amlodipine 10 mg Tablet PO (08:01)
[2020-04-20] MEDS: sertraline 100 mg Tablet 150 MG PO (08:01)
[2020-04-20] MEDS: spironolactone 25 mg Tablet 50 MG PO (08:01)
[2020-04-20 11:08] LABS: Glucose Point of Care 200 mg/dL (70-110)
[2020-04-20 12:36] VITALS: BP 105/65; PULSE 75; RESP 18; TEMP 36.7; O2SAT 95
--- NOTE | 2020-04-20 13:30 | PM.PN ---
Subjective Subjective: Interval history: Patient is seen in the SENSORY SCIENTIST you. [place] are still in place in spite of an order for removal. This is requested from the MPU staff. They will remove madiha and Steri-Strip. I have also advised the patient that he needs to remain strictly nonweightbearing. He is continuing to evaluate potential living situations. Medications: Reviewed: Yes Vitals/I&O/Wt Last Vital Signs Temp 98.1 F 04/20/20 12:36 Pulse 75 04/20/20 12:36 Resp 18 04/20/20 12:36 BP 105/65 04/20/20 12:36 Pulse Ox 95 04/20/20 12:36 Physical Exam Const: COMMON NORMALS: no acute distress, average body habitus, patient oriented x3 and alert GENERAL APPEARANCE: cooperative and comfortable ORIENTATION/CONSCIOUSNESS: Yes awake HENMT: COMMON NORMALS: normocephalic and atraumatic HEAD & SCALP: normocephalic and atraumatic Eye: GENERAL EYE: appearance normal, both eyes and all related structures Chest: COMMONS NORMALS: normal inspection of the chest Resp: COMMON NORMALS: normal respiratory effort EFFORT & INSPECTION: Yes able to speak in complete sentences and Yes symmetric chest movement Extremity: RIGHT LOWER EXTREMITY: Yes knee joint (Patient has periprosthetic fracture following total knee arthroplasty.) Right knee: Yes inspection (The wound appears well-healed. Gl[place] will be discontinued.), Yes palpation (Minimal to no tenderness to palpation.), Yes ROM (Not evaluated.) and Yes neurovascular exam (Intact distal to the fracture site.) Neuro: COMMON NORMALS: patient oriented x3 SENSORIUM/ORIENTATION: Yes alert GAIT: Yes Unable to assess gait (Secondary to fracture) Psych: COMMON NORMALS: mental status grossly normal APPEARANCE: Yes grossly normal ATTITUDE: Yes calm and Yes engaged ATTENTION/CONCENTRATION: Yes attention grossly intact Skin: COMMON NORMALS: no rashes or lesions noted GENERAL SKIN EXAM: no rashes or lesions noted Urinary Catheter Management^: Ingram: Cath Placed During This Visit: yes, but has since been removed by the nurse Urinary Catheter Date of Insertion: 04/08/20 Urinary Catheter Time of Insertion: 11:45 Date Urinary Catheter Removed: 04/08/20 Time Urinary Catheter Discontinued: 13:54 Data : 04/18/20 06:55 04/18/20 06:55 A&P Assessment and plan (1) Anika-prosthetic fracture around prosthetic knee: This gentleman is well-known to me following total knee arthroplasty in December of this year. The patient had a fall directly onto his total knee arthroplasty when he was unable to maintain footing in pile of 3 inch rocks. He was admitted through the emergency department with a periprosthetic supracondylar left femur fracture. The patient was admitted to the medical service secondary to multiple medical comorbidities. Surgery was accomplished on the afternoon of April 08 following medical evaluation and treatment. Following the surgical procedure, the patient was placed back on Eliquis as an anticoagulant. The severity of his fracture was explained to him in detail. He understands that he is to be nonweightbearing on this extremity and the reasons why. Due to insurance issues, placement has been very difficult for this patient. He refused placement to a homeless custodial, however, once again, I have encouraged him that he needs to be appropriate in his decisions regarding where he will be at the time of discharge. He is unable to return to his previous living situation. He feels that he may now have housing in place. Work is being done to assure that wheelchair will fit into the rooms of the housing. From my perspective, I will need to see him at the beginning half of the month of April in 2 weeks or so. He may be discharged when medically appropriate. Status: Acute Qualifiers: Encounter type: initial encounter Laterality: left Qualified Code(s): M97.12XA - Periprosthetic fracture around internal prosthetic left knee joint, initial encounter (2) Closed supracondylar fracture of femur: Status: Acute Qualifiers: Encounter type: initial encounter Laterality: left Qualified Code(s): S72.452A - Displaced supracondylar fracture without intracondylar extension of lower end of left femur, initial encounter for closed fracture (3) S/P total knee arthroplasty: Status: Acute Qualifiers: Laterality: left Qualified Code(s): Z96.652 - Presence of left artificial knee joint Additional A&P Information s/p ORIF Left periprosthetic femur fx of knee continue current tx Attestations Medical Necessity Statement*: Patient continues hospitalization for medical management and psychiatric management. Coding Level of Care Code Acute Control Board Operator for [facility] Fwd Diagnoses Anika-prosthetic fracture around prosthetic knee M97.12XA Encounter type: initial encounter Laterality: left Closed supracondylar fracture of femur S72.452A Encounter type: initial encounter Laterality: left S/P total knee arthroplasty Z96.652 Laterality: left
[2020-04-20 16:45] LABS: Glucose Point of Care 127 mg/dL (70-110)
--- NOTE | 2020-04-20 17:43 | P.PN_ITS ---
Subjective NPU Subjective: Interval history: Chun presented to the appointment reporting that he is doing okay. He continues to work with the short team to identify options for placement. He is working with the [facility] and things are going okay. He is adapting to the changes in the medication we made a couple days ago is eating okay. He is managing the pain post surgery and denies any other issues. Mental Status Exam MSE Comments: This is an obese white male with a hospital gown on with adequate, grooming and eye contact. No abnormal movements except for mild psychomotor retardation. Cooperative with exam in no acute distress. He was up nonweightbearing in his wheelchair. Speech was slightly decreased rate and volume. Mood described as depressed, affect a little brighter. Thought process organized. Thought content: Patient denied any homicidal ideation but does endorse a passive wish in suicidal thoughts given that insurmountable circumstances he feels he is facing, there were no delusions reported or noted, he denies any auditory or visual hallucinations. Attention and concentration appeared intact and memory appeared reliable but none were formally tested. He is alert and oriented x3. Insight and judgment are improving and impulse control is limited. Vitals/I&O/Wt Last Vital Signs Temp 98.4 F 04/20/20 21:06 Pulse 71 04/20/20 21:06 Resp 18 04/20/20 21:06 BP 111/69 04/20/20 21:06 Pulse Ox 95 04/20/20 21:06 Physical Exam Urinary Catheter Management^: Ingram: Cath Placed During This Visit: yes, but has since been removed by the nurse Urinary Catheter Date of Insertion: 04/08/20 Urinary Catheter Time of Insertion: 11:45 Date Urinary Catheter Removed: 04/08/20 Time Urinary Catheter Discontinued: 13:54 Data NPU : 04/18/20 06:55 04/18/20 06:55 A&P Additional A&P Information (1) Closed supracondylar fracture of femur: (2) Anika-prosthetic fracture around prosthetic knee: (3) Fracture of femur: (4) Fall: Additional A&P Information (1) Atrial fibrillation: (2) S/P total knee arthroplasty: (3) Chest pain: (4) Hypertension: (5) Diabetes: (6) Anxiety: (7) Mood disorder: (8) Suicidal thoughts: (9) Adjustment disorder with mixed disturbance of emotions and conduct: This is a 54-year-old white male with a recent history of difficulties after his most recent divorce with some history of addiction who presented to the emergency department after a fall which led to a fractured femur, subsequent surgery and limited convalescence who presents now without his job and reporting suicidal thoughts. 1. Continue current medication. 2. Continue every 15 minute checks for safety. 3. Follow any recommendations from PT/OT and transferring For appropriate care status post surgical repair of broken femur. 4. Encourage individual, group and milieu therapy. 5. Encourage sober living treatment after discharge at the highest level of care to which he is willing to commit. 6. Continue to work with treatment team to find a viable discharge plan. Involuntary Hold Information 96 Hour Hold: 96 Hour Involuntary Admission: No Attestations NPU Medical Necessity Statement*: Inpatient hospitalization is medically necessary and the clinically appropriate intervention at this time. We will monitor medication and make changes as indicated. Likely length of stay 3-5 days. Coding Level of Care Code Acute Invertebrate Paleontologist for Shreya Espinoza
--- NOTE | 2020-04-20 18:00 | P.PN_ITS ---
Subjective Subjective: Interval history: no acute events since last ealuation Medications: Reviewed: Yes Vitals/I&O/Wt Last Vital Signs Temp 97.4 F L 04/21/20 06:00 Pulse 73 04/21/20 06:00 Resp 18 04/21/20 06:00 BP 125/73 04/21/20 06:00 Pulse Ox 96 04/21/20 06:00 Physical Exam Urinary Catheter Management^: Ingram: Cath Placed During This Visit: yes, but has since been removed by the nurse Urinary Catheter Date of Insertion: 04/08/20 Urinary Catheter Time of Insertion: 11:45 Date Urinary Catheter Removed: 04/08/20 Time Urinary Catheter Discontinued: 13:54 Data : 04/18/20 06:55 04/18/20 06:55 A&P Assessment and plan (1) Fall: Status: Acute (2) Fracture of femur: Status: Acute Qualifiers: Encounter type: initial encounter Femur location: distal, unspecified portion Fracture morphology: unspecified fracture morphology Fracture type: closed Laterality: left Qualified Code(s): S72.402A - Unspecified fracture of lower end of left femur, initial encounter for closed fracture (3) Atrial fibrillation: Status: Acute Qualifiers: Atrial fibrillation type: unspecified chronic Qualified Code(s): I48.20 - Chronic atrial fibrillation, unspecified (4) Congestive heart failure: Status: Acute Qualifiers: Heart failure type: unspecified Heart failure chronicity: chronic Qualified Code(s): I50.9 - Heart failure, unspecified (5) Hypertension: Status: Acute Qualifiers: Hypertension type: essential hypertension Qualified Code(s): I10 - Essential (primary) hypertension (6) Diabetes: Status: Acute Qualifiers: Diabetes mellitus complication status: with hyperglycemia Diabetes mellitus adjunct faculty for medical terminology insulin use: with adjunct faculty for medical terminology use Diabetes mellitus type: type 2 Qualified Code(s): E11.65 - Type 2 diabetes mellitus with hyperglycemia; 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 Martin -Plan to continue current medication Status: Acute Additional A&P Information 54-year-old man with past medical history of atrial fibrillation, congestive heart failure type 2 diabetes mellitus, recent COVID-19 presents after having a fall and found to have left femoral fracture. Currently in NPU for reported suicidal ideation and difficuly social situation Left shoulder pain, likely chronic rotator cuff tear, tramadol for pain, continue range of motion exercises Fall: Mechanical as he twisted his ankles while walking on the rocks. Left fracture femur: s/p surgical repair Anticoagulation, physical therapy, perioperative antibiotics, weightbearing as per orthopedics. Continue Ultram in addition to celecoxib Atrial fibrillation: Rate controlled at present. Continue home dose of carvedilol. On home Eliquis Congestive heart failure: Euvolemic at present. Patient takes forsemide 40 mg twice daily, spironolactone 25 mg daily at home. Continues with home doses of medication. Last echocardiogram from April 2019 shows an EF 55% with grade 2 diastolic dysfunction with mildly dilated LA. Hypertension: Known goal blood pressure less than 140/90 Hg. For now continue with home dose of amlodipine. well controlled BP Type 2 diabetes mellitus: Continue with home dose of Lantus 55 units twice daily. Continue with insulin sliding scale moderate dose protocol. reduce insulin glargine to 40 U BID given morning hypoglycemia HbA1c 9.3. Anemia: Baseline hemoglobin around 11. 9.4 today We will continue to monitor. Repeat hemoglobin afternoon. Transfuse if hemoglobin falls below 8 because of history of congestive heart failure and atrial fibrillation. Continue with monitoring hemoglobin daily for now. COVID-19: Tested positive in December. Has finished his quarantine. Asymptomatic at present. Chest x-ray. Anxiety: Continue with home dose of and baseline, Zoloft. Continue other chronic medication like hydroxyzine, gabapentin, Requip Pancytopenia, white blood cell count 4.8, hemoglobin 9.4, platelet count 145 likely secondary to fall, postsurgical, continue to monitor for fevers Full code. Carb consistent cardiac diet. Eliquis for DVT prophylaxis Discharge planning: Unfortunately placement to prison at this point is difficult, patient tells caseworkers that he thinks he has Blue [employer] Blue Shield is not valid as he has not paid his bills in some time. In addition patient owes money to a local prison. Were trying [facility] prison at this point. Unfortunately also does not have a certain living situation, has been working room from a friend, cannot accommodate him anymore, only reasonable option would be a care home Plan for today, reduce insulin, continue NPU managemnet Overall stable from medical perspective, please call with any questions or if patient needs reassessment Attestations Medical Necessity Statement*: please see NPU service note Coding Level of Care Code Acute Frame Feeder for Chg Fwd Diagnoses Fall W19.XXXA Fracture of femur S72.402A Encounter type: initial encounter Femur location: distal, unspecified portion Fracture morphology: unspecified fracture morphology Fracture type: closed Laterality: left Atrial fibrillation I48.20 Atrial fibrillation type: unspecified chronic Congestive heart failure I50.9 Heart failure type: unspecified Heart failure chronicity: chronic Hypertension I10 Hypertension type: essential hypertension Diabetes E11.65; Z79.4 Diabetes mellitus complication status: with hyperglycemia Diabetes mellitus half-way insulin use: with adjunct faculty for medical terminology use Diabetes mellitus type: type 2 Anxiety F41.9 S/P total knee arthroplasty Z96.652 Laterality: left COVID-19 U07.1 Suicidal ideation R45.851
[2020-04-20] MEDS: acetaminophen 500 mg Tablet 1000 MG PO (19:28)
[2020-04-20 20:18] LABS: Glucose Point of Care 155 mg/dL (70-110)
[2020-04-20 21:06] VITALS: BP 111/69; PULSE 71; RESP 18; TEMP 36.9; O2SAT 95
[2020-04-20] MEDS: nystatin powder 15 gm Btl 1 APPLIC TOPICAL (21:33)
[2020-04-20] MEDS: ARIPiprazole 10 mg Tablet PO (21:33)
[2020-04-20] MEDS: doxepin 10 mg Capsule PO (21:33)
--- NOTE | 2020-04-20 23:42 | PC.NURSE ---
Patient reported he had blood on his adult brief when he changed. Assessed his perineum and noted areas he is missing when he self applies the Nystatin powder. Dusted the areas with Nystatin powder. Suggested he allow the nursing staff to assist with the application of the Nystatin powder to improve coverage to affected areas. He agreed.
[2020-04-21 00:25] LABS: Glucose Point of Care 61 mg/dL (70-110)
--- NOTE | 2020-04-21 00:26 | PC.NURSE ---
The patient called for help. He said he wasn't feeling well. BP 150/84, p 81. Blood sugar 61. The blood sugar was low for the patient. Given snack of orange juice and peanut butter. Discusses insulin with the patient. He had been refusing the sliding scale Novolog at saying it could bottom out his blood glucose. Last night he agreed to 4 units Novolog sliding scale Saturday evening. Told the patient I will ask MD to review insulin doses.
[2020-04-21] MEDS: FUROsemide 40 mg Tablet PO ×2 (05:53→13:01)
[2020-04-21 06:00] VITALS: BP 125/73; PULSE 73; RESP 18; TEMP 36.3; O2SAT 96
--- NOTE | 2020-04-21 06:47 | PC.NURSE ---
EXCORIATION CLEANSED PATIENTS PERINEUM WITH BATH WIPES AND APPLIED POWERED TO PERINEUM. PT HAS LARGE RED AREAS OF EXCORIATION AROUND HIS GROIN AREA. WILL CONTINUE TO MONITOR.
[2020-04-21 07:22] LABS: Glucose Point of Care 120 mg/dL (70-110)
[2020-04-21] MEDS: ferrous gluconate 324 mg Tablet PO ×2 (08:03→20:02)
[2020-04-21] MEDS: hyDROXYzine 25 mg Capsule PO ×3 (08:03→19:51)
[2020-04-21] MEDS: ropinirole 1 mg Tablet PO ×2 (08:03→19:50)
[2020-04-21] MEDS: sertraline 100 mg Tablet 150 MG PO (08:04)
[2020-04-21] MEDS: apixaban 5 mg Tablet PO ×2 (08:04→19:49)
[2020-04-21] MEDS: famotidine 20 mg Tablet PO ×2 (08:04→19:50)
[2020-04-21] MEDS: carvedilol 6.25 mg Tablet PO ×2 (08:04→19:50)
[2020-04-21] MEDS: docusate sodium 100 mg Capsule PO ×2 (08:04→19:51)
[2020-04-21] MEDS: multivitamin therapeutic Tablet 1 TAB PO (08:05)
[2020-04-21] MEDS: amlodipine 10 mg Tablet PO (08:05)
[2020-04-21] MEDS: CELEcoxib 200 mg Capsule PO ×2 (08:05→19:50)
[2020-04-21] MEDS: gabapentin 300 mg Capsule 600 MG PO ×3 (08:06→19:49)
[2020-04-21] MEDS: spironolactone 25 mg Tablet 50 MG PO (08:06)
[2020-04-21] MEDS: insulin glargine 100 units/1 mL 40 UNIT SUBCUT ×2 (09:02→19:52)
[2020-04-21 11:07] LABS: Glucose Point of Care 194 mg/dL (70-110)
[2020-04-21 13:06] VITALS: BP 116/68; PULSE 76; RESP 18; TEMP 36.5; O2SAT 94
[2020-04-21 16:19] LABS: Glucose Point of Care 134 mg/dL (70-110)
[2020-04-21] MEDS: acetaminophen 500 mg Tablet 1000 MG PO (16:44)
--- NOTE | 2020-04-21 17:45 | P.PN_ITS ---
Subjective NPU Subjective: Interval history: Chun presented to the appointment today reporting that he is feeling okay. Fronted the lateral to the leg and his left but understanding importance of him managing his leg in a proper environment to avoid a cast rough outcome. He reports the medication and fine and he has adjusted to them without issue. He is having no problems with pain or anxiety and he is hopeful something will come through to allow him to get out of the hospital because the absence of a DVT the mid interactions Covid and it being the holidays without his children is really depressing. Mental Status Exam MSE Comments: This is an obese white male with a hospital gown on with a dequate, grooming and eye contact. No abnormal movements except for mild psychomotor retardation. Cooperative with exam in no acute distress. He was up nonweightbearing in his wheelchair. Speech was slightly decreased rate and volume. Mood described as a little down today, affect congruent. Thought process organized. Thought content: Patient denied any homicidal ideation but does endorse a passive wish in suicidal thoughts given that insurmountable circumstances he feels he is facing, there were no delusions reported or noted, he denies any auditory or visual hallucinations. Attention and concentration appeared intact and memory appeared reliable but none were formally tested. He is alert and oriented x3. Insight and judgment are improving and impulse control is limited. Vitals/I&O/Wt Last Vital Signs Temp 97.8 F 04/21/20 21:59 Pulse 75 04/21/20 21:59 Resp 18 04/21/20 21:59 BP 123/72 04/21/20 21:59 Pulse Ox 95 04/21/20 21:59 04/21/20 04/21/20 04/22/20 14:59 22:59 06:59 Output Total 1500 / 1500 Balance -1500 / -1500 Physical Exam Urinary Catheter Management^: Ingram: Cath Placed During This Visit: yes, but has since been removed by the nurse Urinary Catheter Date of Insertion: 04/08/20 Urinary Catheter Time of Insertion: 11:45 Date Urinary Catheter Removed: 04/08/20 Time Urinary Catheter Discontinued: 13:54 Data NPU : 04/18/20 06:55 04/18/20 06:55 A&P Additional A&P Information (1) Closed supracondylar fracture of femur: (2) Anika-prosthetic fracture around prosthetic knee: (3) Fracture of femur: (4) Fall: Additional A&P Information (1) Atrial fibrillation: (2) S/P total knee arthroplasty: (3) Chest pain: (4) Hypertension: (5) Diabetes: (6) Anxiety: (7) Mood disorder: (8) Suicidal thoughts: (9) Adjustment disorder with mixed disturbance of emotions and conduct: This is a 54-year-old white male with a recent history of difficulties after his most recent divorce with some history of addiction who presented to the emergen cy department after a fall which led to a fractured femur, subsequent surgery and limited convalescence who presents now without his job and reporting suicidal thoughts. 1. Continue current medication. 2. Continue every 15 minute checks for safety. 3. Follow any recommendations from PT/OT and transferring DrAvel For appropriate care status post surgical repair of broken femur. 4. Encourage individual, group and milieu therapy. 5. Encourage sober living treatment after discharge at the highest level of care to which he is willing to commit. 6. Continue to work with treatment team to find a viable discharge plan. Involuntary Hold Information 96 Hour Hold: 96 Hour Involuntary Admission: No Attestations NPU Medical Necessity Statement*: Inpatient hospitalization is medically necessary and the clinically appropriate intervention at this time. We will monitor medication and make changes as indicated. Likely length of stay 3-5 days. Coding Level of Care Code Acute Cement Production Plant Operator for Shreya Espinoza
[2020-04-21 19:33] LABS: Glucose Point of Care 173 mg/dL (70-110)
[2020-04-21] MEDS: ARIPiprazole 10 mg Tablet PO (19:51)
[2020-04-21] MEDS: doxepin 10 mg Capsule PO (19:51)
[2020-04-21] MEDS: nystatin powder 15 gm Btl 1 APPLIC TOPICAL (21:19)
[2020-04-21 21:59] VITALS: BP 123/72; PULSE 75; RESP 18; TEMP 36.6; O2SAT 95
--- NOTE | 2020-04-22 03:06 | PC.NURSE ---
Compression Stockings Pt has minor increase temperature on the wound surface, the legs are mildly swollen, pt did not have his compression stockings on his legs. Nurse reapplied them, placed pt back in his bed, applied ice pack to underside of leg area to decrease pain and swelling at surgical site. Cassia are intact, no s/s of infection, mildly painful to touch. Will continue to monitor pt for any s/s of infection and pain control.
--- NOTE | 2020-04-22 03:34 | PC.NURSE ---
Ice pack Pt has minor increase of skin temperature at the surgical site. Tegaderm dressing and butterfly bandages are clean, dry, and intact. There is minimal swelling to the lower left leg. Ice pack applied to reduce pain and swelling. will continue to monitor pt condition. No s/s of infection or increased redness noted at this time. Pt rates pain a 3 on a 1-10 pain scale. Pt denies need for oral medication at this time.
[2020-04-22 06:00] VITALS: BP 132/78; PULSE 74; RESP 17; TEMP 36.9; O2SAT 95
[2020-04-22] MEDS: FUROsemide 40 mg Tablet PO ×2 (06:31→14:17)
[2020-04-22 06:49] LABS: Glucose Point of Care 105 mg/dL (70-110)
[2020-04-22] MEDS: gabapentin 300 mg Capsule 600 MG PO ×3 (09:28→21:28)
[2020-04-22] MEDS: CELEcoxib 200 mg Capsule PO ×2 (09:29→21:28)
[2020-04-22] MEDS: multivitamin therapeutic Tablet 1 TAB PO (09:29)
[2020-04-22] MEDS: amlodipine 10 mg Tablet PO (09:29)
[2020-04-22] MEDS: hyDROXYzine 25 mg Capsule PO ×3 (09:29→21:28)
[2020-04-22] MEDS: apixaban 5 mg Tablet PO ×2 (09:29→21:29)
[2020-04-22] MEDS: ropinirole 1 mg Tablet PO ×2 (09:29→21:28)
[2020-04-22] MEDS: sertraline 100 mg Tablet 150 MG PO (09:29)
[2020-04-22] MEDS: famotidine 20 mg Tablet PO ×2 (09:29→21:28)
[2020-04-22] MEDS: nystatin powder 15 gm Btl 1 APPLIC TOPICAL (09:29)
[2020-04-22] MEDS: ferrous gluconate 324 mg Tablet PO ×2 (09:29→22:39)
[2020-04-22] MEDS: carvedilol 6.25 mg Tablet PO ×2 (09:29→21:28)
[2020-04-22] MEDS: insulin glargine 100 units/1 mL 40 UNIT SUBCUT ×2 (09:30→21:37)
[2020-04-22] MEDS: spironolactone 25 mg Tablet 50 MG PO (09:31)
[2020-04-22 11:17] LABS: Glucose Point of Care 143 mg/dL (70-110)
[2020-04-22] MEDS: acetaminophen 500 mg Tablet 1000 MG PO (11:56)
[2020-04-22 14:00] VITALS: BP 126/76; PULSE 71; RESP 18; TEMP 36.8; O2SAT 96
[2020-04-22 16:42] LABS: Glucose Point of Care 166 mg/dL (70-110)
--- NOTE | 2020-04-22 16:57 | PM.NPN ---
Subjective NPU Subjective: Interval history: Chun presents today having had a fairly bad morning. He reports that mostly he was bored feeling resentful of the fact that he does not have any options and it does not seem like anyone is coming through for him. Additionally he really wants to say hello to his family in [place]. We discussed some different possibilities that we might be able to assist with for a family conversation or two. We had a long conversation about how dangerous it would be for him to make a short-term decision leaving can lead to a very long-term consequence of him losing his leg and he was very open to conversation and aware he needs to manage his feelings right now. Mental Status Exam MSE Comments: This is an obese white male with a hospital gown on with adequate, grooming and eye contact. No abnormal movements except for mild psychomotor retardation. Cooperative with exam in no acute distress. He was up nonweightbearing in his wheelchair. Speech was slightly decreased rate and volume. Mood described as a little better now, affect congruent. Thought process organized. Thought content: Patient denied any homicidal ideation but does endorse a passive wish and occasional suicidal thoughts given that insurmountable circumstances he feels he is facing, but having some improvement with that, there were no delusions reported or noted, he denies any auditory or visual hallucinations. Attention and concentration appeared intact and memory appeared reliable but none were formally tested. He is alert and oriented x3. Insight and judgment are improving and impulse control is limited. Vitals/I&O/Wt Last Vital Signs Temp 98.2 F 04/22/20 14:00 Pulse 71 04/22/20 14:00 Resp 18 04/22/20 14:00 BP 126/76 04/22/20 14:00 Pulse Ox 96 04/22/20 14:00 Physical Exam Urinary Catheter Management^: Ingram: Cath Placed During This Visit: yes, but has since been removed by the nurse Urinary Catheter Date of Insertion: 04/08/20 Urinary Catheter Time of Insertion: 11:45 Date Urinary Catheter Removed: 04/08/20 Time Urinary Catheter Discontinued: 13:54 Data NPU : 04/18/20 06:55 04/18/20 06:55 A&P Additional A&P Information (1) Closed supracondylar fracture of femur: (2) Anika-prosthetic fracture around prosthetic knee: (3) Fracture of femur: (4) Fall: Additional A&P Information (1) Atrial fibrillation: (2) S/P total knee arthroplasty: (3) Chest pain: (4) Hypertension: (5) Diabetes: (6) Anxiety: (7) Mood disorder: (8) Suicidal thoughts: (9) Adjustment disorder with mixed disturbance of emotions and conduct: This is a 54-year-old white male with a recent history of difficulties after his most recent divorce with some history of addiction who presented to the emergency department after a fall which led to a fractured femur, subsequent surgery and limited convalescence who presents now without his job and reporting suicidal thoughts. 1. Continue current medication. 2. Continue every 15 minute checks for safety. 3. Follow any recommendations from PT/OT and transferring DrAvel For appropriate care status post surgical repair of broken femur. 4. Encourage individual, group and milieu therapy. 5. Encourage sober living treatment after discharge at the highest level of care to which he is willing to commit. 6. Continue to work with treatment team to find a viable discharge plan. 7. We will attempt to have some option like FaceTime for him to contact his family today. Involuntary Hold Information 96 Hour Hold: 96 Hour Involuntary Admission: No Attestations NPU Medical Necessity Statement*: Inpatient hospitalization is medically necessary and the clinically appropriate intervention at this time. We will monitor medication and make changes as indicated. Likely length of stay 3-5 days. Coding Level of Care Code Acute Branner Machine Tender for Shreya Espinoza
[2020-04-22 19:24] VITALS: BP 123/73; PULSE 72; RESP 18; TEMP 36.6; O2SAT 95
--- NOTE | 2020-04-22 19:40 | PC.NURSE ---
IN DAY ROOM IN [facility], SAYS FEELING DIZZY HEADED AND CLAMMY FEELING, BLOOD SUGAR 153. ATE SNACK, SAYS FEELING BETTER, NO LONGER CLAMMY. HAS NOT GOTTEN UP YET TO TRANSFER. DENIES WANTING TO HARM SELF.
[2020-04-22 19:45] LABS: Glucose Point of Care 154 mg/dL (70-110)
[2020-04-22] MEDS: doxepin 10 mg Capsule PO (21:28)
[2020-04-22] MEDS: ARIPiprazole 10 mg Tablet PO (21:28)
[2020-04-22] MEDS: docusate sodium 100 mg Capsule PO (21:28)
[2020-04-22] MEDS: tizanidine 4 mg Tablet 2 MG PO (22:50)
[2020-04-23 06:00] VITALS: BP 134/65; PULSE 68; RESP 16; TEMP 36.8; O2SAT 96
[2020-04-23] MEDS: FUROsemide 40 mg Tablet PO ×2 (06:07→14:10)
[2020-04-23 06:10] LABS: Glucose Point of Care 106 mg/dL (70-110)
[2020-04-23] MEDS: multivitamin therapeutic Tablet 1 TAB PO (08:37)
[2020-04-23] MEDS: amlodipine 10 mg Tablet PO (08:37)
[2020-04-23] MEDS: sertraline 100 mg Tablet 150 MG PO (08:38)
[2020-04-23] MEDS: spironolactone 25 mg Tablet 50 MG PO (08:38)
[2020-04-23] MEDS: ropinirole 1 mg Tablet PO ×2 (08:47→20:29)
[2020-04-23] MEDS: carvedilol 6.25 mg Tablet PO ×2 (08:47→20:30)
[2020-04-23] MEDS: docusate sodium 100 mg Capsule PO ×2 (08:47→20:29)
[2020-04-23] MEDS: hyDROXYzine 25 mg Capsule PO ×3 (08:48→20:29)
[2020-04-23] MEDS: gabapentin 300 mg Capsule 600 MG PO ×3 (08:48→20:29)
[2020-04-23] MEDS: apixaban 5 mg Tablet PO ×2 (08:48→20:30)
[2020-04-23] MEDS: famotidine 20 mg Tablet PO ×2 (08:48→20:29)
[2020-04-23] MEDS: insulin glargine 100 units/1 mL 40 UNIT SUBCUT ×2 (09:23→20:27)
--- NOTE | 2020-04-23 09:57 | PM.NPN ---
Subjective NPU Subjective: Interval history: Chun presents today reporting that unfortunately he did not get to speak to his family on [place]. They had android devices and therefore could not FaceTime with the unit iPad. He reports that he still doing okay and trying to make the best of his situation. He did get the hospitalist consult about the pain he was having after tweaking his leg. Plan at this time is to monitor his pain until Saturday and do imaging or other interventions on Saturday if the pain does not subside. We will continue to work on discharge planning he will continue to make calls trying to find alternatives but we understand no changes will likely occur until Saturday. Mental Status Exam MSE Comments: This is an obese white male with a hospital gown on with adequate, grooming and eye contact. No abnormal movements except for mild psychomotor retardation. Cooperative with exam in no acute distress. He was up nonweightbearing in his wheelchair. Speech was slightly decreased rate and volume. Mood described as best as I can be, affect congruent. Thought process organized. Thought content: Patient denied any homicidal ideation but does endorse a passive wish and occasional suicidal thoughts given that insurmountable circumstances he feels he is facing, but having some improvement with that, there were no delusions reported or noted, he denies any auditory or visual hallucinations. Attention and concentration appeared intact and memory appeared reliable but none were formally tested. He is alert and oriented x3. Insight and judgment are improving and impulse control is limited. Vitals/I&O/Wt Last Vital Signs Temp 98.2 F 04/23/20 06:00 Pulse 68 04/23/20 06:00 Resp 16 04/23/20 06:00 BP 134/65 04/23/20 06:00 Pulse Ox 96 04/23/20 06:00 Physical Exam Urinary Catheter Management^: Ingram: Cath Placed During This Visit: yes, but has since been removed by the nurse Urinary Catheter Date of Insertion: 04/08/20 Urinary Catheter Time of Insertion: 11:45 Date Urinary Catheter Removed: 04/08/20 Time Urinary Catheter Discontinued: 13:54 Data NPU : 04/18/20 06:55 04/18/20 06:55 A&P Additional A&P Information (1) Closed supracondylar fracture of femur: (2) Anika-prosthetic fracture around prosthetic knee: (3) Fracture of femur: (4) Fall: Additional A&P Information (1) Atrial fibrillation: (2) S/P total knee arthroplasty: (3) Chest pain: (4) Hypertension: (5) Diabetes: (6) Anxiety: (7) Mood disorder: (8) Suicidal thoughts: (9) Adjustment disorder with mixed disturbance of emotions and conduct: This is a 54-year-old white male with a recent history of difficulties after his most recent divorce with some history of addiction who presented to the emergency department after a fall which led to a fractured femur, subsequent surgery and limited convalescence who presents now without his job and reporting suicidal thoughts. 1. Continue current medication. 2. Continue every 15 minute checks for safety. 3. Follow any recommendations from PT/OT and transferring DrAvel For appropriate care status post surgical repair of broken femur. 4. Encourage individual, group and milieu therapy. 5. Encourage sober living treatment after discharge at the highest level of care to which he is willing to commit. 6. Continue to work with treatment team to find a viable discharge plan. Involuntary Hold Information 96 Hour Hold: 96 Hour Involuntary Admission: No Attestations NPU Medical Necessity Statement*: Inpatient hospitalization is medically necessary and the clinically appropriate intervention at this time. We will monitor medication and make changes as indicated. Likely length of stay 2-4 days. Coding Level of Care Code Acute Global Program Manager for Shreya Espinoza
--- NOTE | 2020-04-23 10:49 | PC.NURSE ---
PT CARE; NOTIFIED DR SEPULVEDA THAT CLIENT REPORTS HE INJURED HIS LEG ON THE BEDSIDE TABLE IN HIS ROOM AND THAT IT IS SWELLING AND CAUSING HIM INCREASED PAIN. DR SEPULVEDA ADVISES THAT WE CONSULT DR. AVALOS AND THE HOSPITALIST WHO HAS BEEN FOLLOWING THE PATIENT WHILE HE HAS BEEN IN THE HOSPITAL. DR SEPULVEDA ALSO REQUEST THAT DR. AVALOS CALL DR. SEPULVEDA WITH HIS FINDINGS. THIS STAFF MEMBER UNABLE TO REACH DR. AVALOS YARD WAREHOUSE WORKER CAMILA MATTHEW NOTIFIDE. SHE REPORTS THAT SHE WILL REACH OUT TO BAILEY EVANS AND LET HIM KNOW THE SITUATION.
[2020-04-23 11:11] LABS: Glucose Point of Care 181 mg/dL (70-110)
[2020-04-23] MEDS: tizanidine 4 mg Tablet 2 MG PO ×2 (13:12→20:27)
--- NOTE | 2020-04-23 13:13 | PC.NURSE ---
pt med; client given 2mg zanaflex aqs ordered prn for muscle spasm.
[2020-04-23 13:38] VITALS: BP 126/79; PULSE 78; RESP 18; TEMP 36.9; O2SAT 96
--- NOTE | 2020-04-23 15:44 | PM.CONSULT ---
Providers/Reason For Consult Consulting Physican/Specialty*: Psychiatry Reason for Consult*: Left knee pain Attending Physician: Suresh Martin MD Primary Care Provider: Contreras Faustin DO History of Present Illness History of Present Illness Chun Webster JR is a 54 year old male with a past medical history of atrial fibrillation, CHF, type 2 diabetes, recent COVID-19, recent fall with left femur fracture, now with suicidal ideation, in the neuropsychiatric unit who this morning caught his left knee in the bedside table, pulled left knee, now having pain in the left knee. Denies falling, denies any significant trauma, no bruising, left knee slightly swollen. Review of Systems Const: Denies: fever(s), chills, fatigue or malaise Eyes: Denies: change in vision or blurry vision ENMT: Denies: nasal congestion Card: Denies: chest pain Resp: Denies: dyspnea, productive cough, non-productive cough or wheezing GI: Denies: abdominal pain, nausea, vomiting, hematemesis, diarrhea, constipation, hematochezia or melena : Denies: flank pain, difficulty urinating, dysuria or urinary frequency Musc: Denies: neck pain or back pain Skin/Breast: Denies: rash Neuro: Denies: headache(s), dizziness or vertigo Psych: Denies: anxiety or depression Endo: Denies: polyuria or polydipsia Meds/Allergies Home Medications and Allergies Home Medications Medication Instructions Recorded Confirmed Last Taken Type multivitamin [Multiple Vitamins] 1 tab PO DAILY@05/27/19 04/06/20 04/05/20 History fluticasone propionate 2 spray INTRANASAL DAILY PRN 03/04/20 04/06/20 Unknown History amlodipine 10 mg PO DAILY@04/06/20 04/06/20 04/05/20 History apixaban [Eliquis] 5 mg PO BID@04/06/20 04/06/20 04/05/20 History aripiprazole 5 mg PO DAILY@04/06/20 04/06/20 04/05/20 History carvedilol 6.25 mg PO BID@04/06/20 04/06/20 04/05/20 History furosemide 40 mg PO BID@04/06/20 04/06/20 04/05/20 History gabapentin 600 mg PO TID@04/06/20 04/06/20 04/05/20 History hydroxyzine HCl 25 mg PO TID@04/06/20 04/06/20 04/05/20 History insulin glargine [Lantus Solostar 55 unit SUBCUT BID@04/06/20 04/06/20 04/06/20 History U-100 Insulin] ropinirole 1 mg PO BID@04/06/20 04/06/20 04/05/20 History sertraline 100 mg PO DAILY@04/06/20 04/06/20 04/05/20 History spironolactone 25 mg PO DAILY@04/06/20 04/06/20 04/05/20 History Allergies Allergy/AdvReac Type Severity Reaction Status Date / Time trazodone Allergy Unknown Verified 04/06/20 22:31 Current Medications Current Medications Generic Name Dose Route Start Last Admin Trade Name Gallo PRN Reason Stop Dose Admin Amlodipine Besylate 10 mg 04/07/20 09:00 04/23/20 08:37 Amlodipine 10 Mg Tablet PO 10 mg DAILY@09 [place] Administration Apixaban 5 mg 04/18/20 21:00 04/23/20 08:48 Apixaban 5 Mg Tablet PO 5 mg 899,2099 [place] Administration Aripiprazole 10 mg 04/17/20 22:00 04/22/20 21:28 Aripiprazole 10 Mg Tablet PO 10 mg DAILY@22 [place] Administration Carvedilol 6.25 mg 04/06/20 22:15 04/23/20 08:47 Carvedilol 6.25 Mg Tablet PO 6.25 mg BID@ [place] Administration Celecoxib 200 mg 04/18/20 21:00 04/23/20 12:02 Celecoxib 200 Mg Capsule PO Not Given 09,2099 [place] Docusate Sodium 100 mg 04/18/20 21:00 04/23/20 08:47 Docusate Sodium 100 Mg Capsule PO 100 mg 0900,2100 [place] Administration Doxepin HCl 10 mg 04/20/20 21:00 04/22/20 21:28 Doxepin 10 Mg Capsule PO 10 mg BEDTIME [place] Administration Famotidine 20 mg 04/18/20 21:00 04/23/20 08:48 Famotidine 20 Mg Tablet PO 20 mg 0900,2099 [facility] Administration Ferrous Gluconate 324 mg 04/09/20 18:00 04/23/20 11:59 Ferrous Gluconate 324 Mg Tablet PO Not Given BIDWM [facility] Furosemide 40 mg 04/20/20 07:00 04/23/20 14:10 Furosemide 40 Mg Tablet PO 40 mg 0700,1400 [facility] Administration Gabapentin 600 mg 04/06/20 22:15 04/23/20 12:28 Gabapentin 300 Mg Capsule PO 600 mg TID@ [facility] Administration Hydroxyzine Pamoate 25 mg 04/06/20 22:15 04/23/20 12:28 Hydroxyzine 25 Mg Capsule PO 25 mg TID@ [facility] Administration Insulin Aspart 0 unit 04/06/20 22:15 04/23/20 11:50 Insulin Aspart 100 Unit/1 Ml SUBCUT 6 unit WM&BEDTIME [facility] Administration Protocol Insulin Glargine 40 unit 04/21/20 09:00 04/23/20 09:23 Insulin Glargine 100 Units/1 Ml SUBCUT 40 unit BID@ [facility] Administration Multivitamins Therapeutic 1 tab 04/07/20 09:00 04/23/20 08:37 Multivitamin Therapeutic Tablet PO 1 tab DAILY@ [facility] Administration Nystatin 1 applic 04/18/20 21:00 04/23/20 08:34 Nystatin Powder 15 Gm Btl TOPICAL Not Given 899,2099 [facility] Ropinirole HCl 1 mg 04/06/20 22:15 04/23/20 08:47 Ropinirole 1 Mg Tablet PO 1 mg BID@ [facility] Administration Sertraline HCl 150 mg 04/17/20 09:00 04/23/20 08:38 Sertraline 100 Mg Tablet PO 150 mg DAILY@09 [facility] Administration Spironolactone 50 mg 04/13/20 09:00 04/23/20 08:38 Spironolactone 25 Mg Tablet PO 50 mg DAILY@09 [facility] Administration Tizanidine HCl 2 mg 04/14/20 23:40 04/23/20 13:12 Tizanidine 4 Mg Tablet PO 2 mg TID PRN Administration SPASMS PFSH Acute PFSH: Medical History Angioedema Atrial fibrillation Congestive heart failure COVID-19 Diabetes Erectile dysfunction Hyperlipidemia Hypertension Neuropathy Psoriasis Restless leg syndrome Surgical History H/O knee surgery Hx of cardiac cath Family History Father Cancer Lung Mother Cancer Brain Other Diabetes Hypertension Social History Smoking and tobacco status: never smoked Alcohol intake: current Alcohol intake frequency: holidays/special occasions only Household members: friend(s) Housing: Apartment Vitals/I&O/Wt Last Vital Signs Temp 98.5 F 04/23/20 13:38 Pulse 78 04/23/20 13:38 Resp 18 04/23/20 13:38 BP 126/79 04/23/20 13:38 Pulse Ox 96 04/23/20 13:38 Physical Exam Const: COMMON NORMALS: no acute distress and patient oriented x3 HENMT: COMMON NORMALS: normocephalic HEAD & SCALP: normocephalic Neck/C-Spine: COMMON NORMALS: no JVD Resp: COMMON NORMALS: normal respiratory effort, No retractions, No use of accessory muscles and clear to auscultation bilaterally AUSCULTATION: clear to auscultation bilaterally Cardio: COMMON NORMALS: no JVD, regular rate, regular rhythm, S1 normal heart sound present and S2 normal heart sound present RATE: regular rate RHYTHM: regular rhythm HEART SOUNDS: S1 normal heart sound present and S2 normal heart sound present GI: COMMON NORMALS: Normal to inspection, nondistended, normoactive bowel sounds present, Soft to palpation, non-tender, No hepatosplenomegaly present, no masses and no bruits PALPATION: Yes Soft to palpation and Yes No hepatosplenomegaly present Extremity: COMMON NORMALS: capillary refill normal, no clubbing, cyanosis or edema, no calf tenderness and no pedal edema NARRATIVE EXTREMITY EXAM: Left knee, no swelling, no erythema, surgical site looks clean and dry OTHER: Right shoulder, decreased range of motion above 90 degree angle Neuro: COMMON NORMALS: patient oriented x3 Psych: COMMON NORMALS: mental status grossly normal ATTITUDE: Yes Withdrawn affect present ACTIVITY/MOTOR BEHAVIOR: Yes Avoids eye contact (attititude/behavior) MOOD & AFFECT: Yes depressed mood Urinary Catheter Management^: Ingram: Cath Placed During This Visit: yes, but has since been removed by the nurse Urinary Catheter Date of Insertion: 04/08/20 Urinary Catheter Time of Insertion: 11:45 Date Urinary Catheter Removed: 04/08/20 Time Urinary Catheter Discontinued: 13:54 A&P Assessment and plan (1) Fall: Status: Acute (2) Fracture of femur: Status: Acute Qualifiers: Encounter type: initial encounter Femur location: distal, unspecified portion Fracture morphology: unspecified fracture morphology Fracture type: closed Laterality: left Qualified Code(s): S72.402A - Unspecified fracture of lower end of left femur, initial encounter for closed fracture (3) Atrial fibrillation: Status: Acute Qualifiers: Atrial fibrillation type: unspecified chronic Qualified Code(s): I48.20 - Chronic atrial fibrillation, unspecified (4) Congestive heart failure: Status: Acute Qualifiers: Heart failure type: unspecified Heart failure chronicity: chronic Qualified Code(s): I50.9 - Heart failure, unspecified (5) Hypertension: Status: Acute Qualifiers: Hypertension type: essential hypertension Qualified Code(s): I10 - Essential (primary) hypertension (6) Diabetes: Status: Acute Qualifiers: Diabetes mellitus complication status: with hyperglycemia Diabetes mellitus snf insulin use: with snf use Diabetes mellitus type: type 2 Qualified Code(s): E11.65 - Type 2 diabetes mellitus with hyperglycemia; Z79.4 - assistant terminal manager (current) use of insulin (7) Anxiety: Status: Acute (8) S/P total knee arthroplasty: Status: Acute Qualifiers: Laterality: left Qualified Code(s): Z96.652 - Presence of left artificial knee joint (9) COVID-19: Status: Acute (10) Suicidal ideation: -Not actively suicidal -Certainly has depression and anxiety -Very difficult situation, poor social situation -Seen by Dr. Martin -Plan to continue current medication Status: Acute Additional A&P Information 54-year-old man with past medical history of atrial fibrillation, congestive heart failure type 2 diabetes mellitus, recent COVID-19 presents after having a fall and found to have left femoral fracture. Currently in NPU for reported suicidal ideation and difficuly social situation Left shoulder pain, likely chronic rotator cuff tear, tramadol for pain, continue range of motion exercises Fall: Mechanical as he twisted his ankles while walking on the rocks. Left fracture femur: s/p surgical repair Anticoagulation, physical therapy, perioperative antibiotics, weightbearing as per orthopedics. Patient has seems like more of a musculoskeletal pain from stretching the femur fracture site, will start him on [place], if pain persists will consider doing imaging Atrial fibrillation: Rate controlled at present. Continue home dose of carvedilol. On home Eliquis Congestive heart failure: Euvolemic at present. Patient takes forsemide 40 mg twice daily, spironolactone 25 mg daily at home. Continues with home doses of medication. Last echocardiogram from April 2019 shows an EF 55% with grade 2 diastolic dysfunction with mildly dilated LA. Hypertension: Known goal blood pressure less than 140/90 Hg. For now continue with home dose of amlodipine. well controlled BP Type 2 diabetes mellitus: Continue with home dose of Lantus 55 units twice daily. Continue with insulin sliding scale moderate dose protocol. reduce insulin glargine to 40 U BID given morning hypoglycemia HbA1c 9.3. Anemia: Baseline hemoglobin around 11. 9.4 today We will continue to monitor. Repeat hemoglobin afternoon. Transfuse if hemoglobin falls below 8 because of history of congestive heart failure and atrial fibrillation. Continue with monitoring hemoglobin daily for now. COVID-19: Tested positive in December. Has finished his quarantine. Asymptomatic at present. Chest x-ray. Anxiety: Continue with home dose of and baseline, Zoloft. Continue other chronic medication like hydroxyzine, gabapentin, Requip Full code. Carb consistent cardiac diet. Eliquis for DVT prophylaxis Coding Level of Care Code Acute Biological Technical Officer for Chg Fwd Diagnoses Fall W19.XXXA Fracture of femur S72.402A Encounter type: initial encounter Femur location: distal, unspecified portion Fracture morphology: unspecified fracture morphology Fracture type: closed Laterality: left Atrial fibrillation I48.20 Atrial fibrillation type: unspecified chronic Congestive heart failure I50.9 Heart failure type: unspecified Heart failure chronicity: chronic Hypertension I10 Hypertension type: essential hypertension Diabetes E11.65; Z79.4 Diabetes mellitus complication status: with hyperglycemia Diabetes mellitus terminal computer operator insulin use: with terminal computer operator use Diabetes mellitus type: type 2 Anxiety F41.9 S/P total knee arthroplasty Z96.652 Laterality: left COVID-19 U07.1 Suicidal ideation R45.851
[2020-04-23 16:13] LABS: Glucose Point of Care 134 mg/dL (70-110)
[2020-04-23] MEDS: ferrous gluconate 324 mg Tablet PO (17:59)
[2020-04-23 19:47] LABS: Glucose Point of Care 173 mg/dL (70-110)
[2020-04-23] MEDS: HYDROcodone-acetaminophen 5-325 mg Tablet 1 TAB PO (20:30)
[2020-04-23] MEDS: ARIPiprazole 10 mg Tablet PO (20:30)
[2020-04-23] MEDS: doxepin 10 mg Capsule PO (20:31)
[2020-04-23] MEDS: nystatin powder 15 gm Btl 1 APPLIC TOPICAL (20:35)
[2020-04-23 21:25] VITALS: BP 119/75; PULSE 75; RESP 18; TEMP 36.4; O2SAT 95
[2020-04-23] MEDS: CELEcoxib 200 mg Capsule PO (23:11)
[2020-04-24] MEDS: FUROsemide 40 mg Tablet PO ×2 (05:25→05:27)
[2020-04-24 06:00] VITALS: BP 134/74; PULSE 72; RESP 18; TEMP 36.6; O2SAT 95; BMI 39.4
[2020-04-24 06:55] LABS: Glucose Point of Care 94 mg/dL (70-110)
[2020-04-24] MEDS: insulin glargine 100 units/1 mL 40 UNIT SUBCUT ×2 (08:01→20:26)
[2020-04-24] MEDS: sertraline 100 mg Tablet 150 MG PO (08:02)
[2020-04-24] MEDS: carvedilol 6.25 mg Tablet PO ×2 (08:02→20:25)
[2020-04-24] MEDS: ropinirole 1 mg Tablet PO ×2 (08:02→20:24)
[2020-04-24] MEDS: ferrous gluconate 324 mg Tablet PO ×2 (08:03→16:57)
[2020-04-24] MEDS: CELEcoxib 200 mg Capsule PO ×2 (08:03→20:25)
[2020-04-24] MEDS: docusate sodium 100 mg Capsule PO ×2 (08:03→20:25)
[2020-04-24] MEDS: famotidine 20 mg Tablet PO ×2 (08:03→20:24)
[2020-04-24] MEDS: multivitamin therapeutic Tablet 1 TAB PO (08:03)
[2020-04-24] MEDS: hyDROXYzine 25 mg Capsule PO ×3 (08:03→20:24)
[2020-04-24] MEDS: apixaban 5 mg Tablet PO ×2 (08:04→20:25)
[2020-04-24] MEDS: amlodipine 10 mg Tablet PO (08:04)
[2020-04-24] MEDS: gabapentin 300 mg Capsule 600 MG PO ×3 (08:04→20:24)
[2020-04-24] MEDS: spironolactone 25 mg Tablet 50 MG PO (08:04)
[2020-04-24] MEDS: HYDROcodone-acetaminophen 5-325 mg Tablet 1 TAB PO (08:40)
[2020-04-24 11:28] LABS: Glucose Point of Care 166 mg/dL (70-110)
[2020-04-24 13:40] VITALS: BP 126/74; PULSE 75; RESP 18; TEMP 36.6
[2020-04-24] MEDS: acetaminophen 500 mg Tablet PO (16:15)
[2020-04-24 16:22] LABS: Glucose Point of Care 120 mg/dL (70-110)
--- NOTE | 2020-04-24 17:55 | PM.NPN ---
Subjective NPU Subjective: Interval history: Chun presents today reporting that he is doing okay. He reports that the pain in his leg has lessened and so he is less anxious about that. He reports however that he is still worried about us finding a plan for after discharge that will allow him to recuperate safely without danger. He reports he is tolerating the medication fine at this point. He is eating and sleeping okay. Mental Status Exam MSE Comments: This is an obese white male with a hospital gown on with adequate, grooming and eye contact. No abnormal movements except for mild psychomotor retardation. Cooperative with exam in no acute distress. He was up nonweightbearing in his wheelchair. Speech was slightly decreased rate and volume. Mood described as okay, affect congruent. Thought process organized. Thought content: Patient denied any homicidal ideation but does endorse a passive wish and occasional suicidal thoughts given that insurmountable circumstances he feels he is facing, there were no delusions reported or noted, he denies any auditory or visual hallucinations. Attention and concentration appeared intact and memory appeared reliable but none were formally tested. He is alert and oriented x3. Insight and judgment are improving and impulse control is limited. Vitals/I&O/Wt Last Vital Signs Temp 98 F 04/24/20 13:40 Pulse 75 04/24/20 13:40 Resp 18 04/24/20 13:40 BP 126/74 04/24/20 13:40 Pulse Ox 95 04/24/20 06:00 Weight last 48 hrs Weight 142.882 kg Physical Exam Urinary Catheter Management^: Ingram: Cath Placed During This Visit: yes, but has since been removed by the nurse Urinary Catheter Date of Insertion: 04/08/20 Urinary Catheter Time of Insertion: 11:45 Date Urinary Catheter Removed: 04/08/20 Time Urinary Catheter Discontinued: 13:54 Data NPU : 04/18/20 06:55 04/18/20 06:55 A&P Additional A&P Information (1) Closed supracondylar fracture of femur: (2) Anika-prosthetic fracture around prosthetic knee: (3) Fracture of femur: (4) Fall: Additional A&P Information (1) Atrial fibrillation: (2) S/P total knee arthroplasty: (3) Chest pain: (4) Hypertension: (5) Diabetes: (6) Anxiety: (7) Mood disorder: (8) Suicidal thoughts: (9) Adjustment disorder with mixed disturbance of emotions and conduct: This is a 54-year-old white male with a recent history of difficulties after his most recent divorce with some history of addiction who presented to the emergency department after a fall which led to a fractured femur, subsequent surgery and limited convalescence who presents now without his job and reporting suicidal thoughts. 1. Continue current medication. 2. Continue every 15 minute checks for safety. 3. Follow any recommendations from PT/OT and transferring DrAvel For appropriate care status post surgical repair of broken femur. 4. Encourage individual, group and milieu therapy. 5. Encourage sober living treatment after discharge at the highest level of care to which he is willing to commit. 6. Continue to work with treatment team to find a viable discharge plan. Involuntary Hold Information 96 Hour Hold: 96 Hour Involuntary Admission: No Attestations NPU Medical Necessity Statement*: Inpatient hospitalization is medically necessary and the clinically appropriate intervention at this time. We will monitor medication and make changes as indicated. Likely length of stay 2-3 days. Coding Level of Care Code Acute Branch Lending Officer for Shreya Espinoza
[2020-04-24 19:43] LABS: Glucose Point of Care 148 mg/dL (70-110)
[2020-04-24 20:09] VITALS: BP 107/64; PULSE 68; RESP 17; TEMP 36.6; O2SAT 95
[2020-04-24] MEDS: ARIPiprazole 10 mg Tablet PO (20:24)
[2020-04-24] MEDS: doxepin 10 mg Capsule PO (20:25)
[2020-04-24] MEDS: tizanidine 4 mg Tablet 2 MG PO (20:25)
[2020-04-25] MEDS: FUROsemide 40 mg Tablet PO ×2 (05:57→14:38)
[2020-04-25 06:00] VITALS: BP 133/71; PULSE 72; RESP 16; TEMP 36.7; O2SAT 96
[2020-04-25 06:42] LABS: Glucose Point of Care 98 mg/dL (70-110)
[2020-04-25] MEDS: carvedilol 6.25 mg Tablet PO ×2 (07:48→20:15)
[2020-04-25] MEDS: apixaban 5 mg Tablet PO ×2 (07:48→20:13)
[2020-04-25] MEDS: amlodipine 10 mg Tablet PO (07:48)
[2020-04-25] MEDS: ropinirole 1 mg Tablet PO ×2 (07:49→20:11)
[2020-04-25] MEDS: sertraline 100 mg Tablet 150 MG PO (07:49)
[2020-04-25] MEDS: multivitamin therapeutic Tablet 1 TAB PO (07:49)
[2020-04-25] MEDS: hyDROXYzine 25 mg Capsule PO ×3 (07:49→20:13)
[2020-04-25] MEDS: gabapentin 300 mg Capsule 600 MG PO ×3 (07:49→20:11)
[2020-04-25] MEDS: acetaminophen 500 mg Tablet PO (07:50)
[2020-04-25] MEDS: spironolactone 25 mg Tablet 50 MG PO (07:50)
[2020-04-25] MEDS: CELEcoxib 200 mg Capsule PO ×2 (07:50→20:13)
[2020-04-25] MEDS: insulin glargine 100 units/1 mL 40 UNIT SUBCUT ×2 (07:51→20:10)
[2020-04-25] MEDS: ferrous gluconate 324 mg Tablet PO ×2 (07:51→17:43)
[2020-04-25] MEDS: nystatin powder 15 gm Btl 1 APPLIC TOPICAL ×2 (07:55→20:13)
[2020-04-25] MEDS: famotidine 20 mg Tablet PO ×2 (08:00→20:12)
[2020-04-25 11:54] LABS: Glucose Point of Care 150 mg/dL (70-110)
[2020-04-25 11:54] LABS: Glucose Point of Care 120 mg/dL (70-110)
--- NOTE | 2020-04-25 12:32 | PC.NURSE ---
ACCUCHECK NOON ACCUCHECK WAS 150
[2020-04-25 13:36] VITALS: BP 108/67; PULSE 74; RESP 18; TEMP 36.9; O2SAT 96
[2020-04-25 16:43] LABS: Glucose Point of Care 122 mg/dL (70-110)
[2020-04-25 19:34] LABS: Glucose Point of Care 185 mg/dL (70-110)
[2020-04-25] MEDS: doxepin 10 mg Capsule PO (20:12)
[2020-04-25] MEDS: HYDROcodone-acetaminophen 5-325 mg Tablet 1 TAB PO (20:12)
[2020-04-25] MEDS: docusate sodium 100 mg Capsule PO (20:12)
--- NOTE | 2020-04-25 20:12 | PM.NPN ---
Subjective NPU Subjective: Interval history: Chun presents today reporting that it seems like his sister is now his only hope. We discussed again SOC and the likelihood of discharge tomorrow to something. He reports that he has restarted his sister again to figure out if she will allow him to fix up the trailer that she controls will was owned by their father. He still is waiting for down mostly secondary to his circumstances. We discussed the likelihood of discharge tomorrow. Mental Status Exam MSE Comments: This is an obese white male with a hospital gown on with adequate, grooming and eye contact. No abnormal movements except for mild psychomotor retardation. Cooperative with exam in no acute distress. He was up nonweightbearing in his wheelchair. Speech was slightly decreased rate and volume. Mood described as okay, affect congruent. Thought process organized. Thought content: Patient denied any homicidal ideation but does endorse a passive wish and limited suicidal thoughts given that insurmountable circumstances he feels he is facing, there were no delusions reported or noted, he denies any auditory or visual hallucinations. Attention and concentration appeared intact and memory appeared reliable but none were formally tested. He is alert and oriented x3. Insight and judgment are improving and impulse control is limited. Vitals/I&O/Wt Last Vital Signs Temp 98.4 F 04/25/20 20:19 Pulse 72 04/25/20 20:19 Resp 18 04/25/20 20:19 BP 106/65 04/25/20 20:19 Pulse Ox 96 04/25/20 20:19 Physical Exam Urinary Catheter Management^: Ingram: Cath Placed During This Visit: yes, but has since been removed by the nurse Urinary Catheter Date of Insertion: 04/08/20 Urinary Catheter Time of Insertion: 11:45 Date Urinary Catheter Removed: 04/08/20 Time Urinary Catheter Discontinued: 13:54 Data NPU : 04/18/20 06:55 04/18/20 06:55 A&P Additional A&P Information (1) Closed supracondylar fracture of femur: (2) Anika-prosthetic fracture around prosthetic knee: (3) Fracture of femur: (4) Fall: Additional A&P Information (1) Atrial fibrillation: (2) S/P total knee arthroplasty: (3) Chest pain: (4) Hypertension: (5) Diabetes: (6) Anxiety: (7) Mood disorder: (8) Suicidal thoughts: (9) Adjustment disorder with mixed disturbance of emotions and conduct: This is a 54-year-old white male with a recent history of difficulties after his most recent divorce with some history of addiction who presented to the emergency department after a fall which led to a fractured femur, subsequent surgery and limited convalescence who presents now without his job and reporting suicidal thoughts. 1. Continue current medication. 2. Continue every 15 minute checks for safety. 3. Follow any recommendations from PT/OT and transferring DrAvel For appropriate care status post surgical repair of broken femur. 4. Encourage individual, group and milieu therapy. 5. Encourage sober living treatment after discharge at the highest level of care to which he is willing to commit. 6. Continue to work with treatment team to find a viable discharge plan. We will attempt discharge to the best option in the morning. Involuntary Hold Information 96 Hour Hold: 96 Hour Involuntary Admission: No Attestations NPU Medical Necessity Statement*: Inpatient hospitalization is medically necessary and the clinically appropriate intervention at this time. We will monitor medication and make changes as indicated. Likely length of stay 1-3 days. Coding Level of Care Code Acute Senior Procurement Specialist for Shreya Espinoza
[2020-04-25] MEDS: ARIPiprazole 10 mg Tablet PO (20:13)
[2020-04-25 20:19] VITALS: BP 106/65; PULSE 72; RESP 18; TEMP 36.9; O2SAT 96
[2020-04-25] MEDS: OLANZapine 5 mg ODT PO (22:43)
[2020-04-26 06:00] VITALS: BP 126/74; PULSE 66; RESP 16; TEMP 36.8; O2SAT 90
[2020-04-26 06:15] LABS: Glucose Point of Care 79 mg/dL (70-110)
[2020-04-26] MEDS: FUROsemide 40 mg Tablet PO ×2 (06:17→14:10)
[2020-04-26] MEDS: hyDROXYzine 25 mg Capsule PO ×3 (08:20→20:53)
[2020-04-26] MEDS: amlodipine 10 mg Tablet PO (08:20)
[2020-04-26] MEDS: famotidine 20 mg Tablet PO ×2 (08:20→20:54)
[2020-04-26] MEDS: gabapentin 300 mg Capsule 600 MG PO ×3 (08:20→20:54)
[2020-04-26] MEDS: CELEcoxib 200 mg Capsule PO ×2 (08:21→20:53)
[2020-04-26] MEDS: spironolactone 25 mg Tablet 50 MG PO (08:21)
[2020-04-26] MEDS: ferrous gluconate 324 mg Tablet PO ×2 (08:21→17:22)
[2020-04-26] MEDS: multivitamin therapeutic Tablet 1 TAB PO (08:21)
[2020-04-26] MEDS: apixaban 5 mg Tablet PO ×2 (08:21→20:53)
[2020-04-26] MEDS: carvedilol 6.25 mg Tablet PO ×2 (08:21→20:54)
[2020-04-26] MEDS: ropinirole 1 mg Tablet PO ×2 (08:21→20:53)
[2020-04-26] MEDS: insulin glargine 100 units/1 mL 40 UNIT SUBCUT ×2 (08:21→20:56)
[2020-04-26] MEDS: sertraline 100 mg Tablet 150 MG PO (08:21)
[2020-04-26] MEDS: nystatin powder 15 gm Btl 1 APPLIC TOPICAL ×2 (08:22→20:55)
[2020-04-26] MEDS: acetaminophen 325 mg Tablet 650 MG PO (10:56)
--- NOTE | 2020-04-26 10:57 | PC.NURSE ---
Addendum entered by Alexsandra Montes RN 04/26/20 11:40: pain decreased to 3 on pain scale Original Note: Tylenol 650mg PO given for leg pain r/t surgical site, rated 7 on 1-10 pain scale. will continue to monitor
[2020-04-26 11:32] LABS: Glucose Point of Care 163 mg/dL (70-110)
[2020-04-26 14:00] VITALS: BP 122/72; PULSE 66; RESP 18; TEMP 36.7; O2SAT 97
[2020-04-26] MEDS: HYDROcodone-acetaminophen 5-325 mg Tablet 1 TAB PO ×2 (15:09→20:53)
--- NOTE | 2020-04-26 15:11 | PC.NURSE ---
Hydrocodone5-325 mg po given for pain. Pt stated, I went to push up from my wheelchair and my shoulder popped. I am having a hard time moving and lifting up. Pt stated, I have a torn rotator cuff in my left shoulder. Staff is not able to verify at this time. Pt rated pain a 10 on a 1-10 pain scale at this time. Will continue to monitor for any worsening symptoms and pain control.
[2020-04-26 16:25] LABS: Glucose Point of Care 103 mg/dL (70-110)
--- NOTE | 2020-04-26 16:51 | P.PN_ITS ---
Subjective NPU Subjective: Interval history: Chun presents today making calls and working with the treatment team to look at alternatives to a nursing home and at this point those of been exhausted. He then discussed the possibility of just getting a ride to his vehicle which we explained would not be functional because he would need to get in to his vehicle and be able to get the wheelchair into the vehicle. We talked to the nursing home and identified the he would be able to utilize the wheelchair there and started mapping of that plan. His medications everything together for tomorrow for morning discharge. Mental Status Exam MSE Comments: This is an obese white male with a hospital gown on with a dequate, grooming and eye contact. No abnormal movements except for mild psychomotor retardation. Cooperative with exam in no acute distress. He was up nonweightbearing in his wheelchair. Speech was slightly decreased rate and volume. Mood described as okay, affect congruent. Thought process organized. Thought content: Patient denied any homicidal ideation but does endorse a passive wish and limited suicidal thoughts given that insurmountable circumstances he feels he is facing, there were no delusions reported or noted, he denies any auditory or visual hallucinations. Attention and concentration appeared intact and memory appeared reliable but none were formally tested. He is alert and oriented x3. Insight and judgment are improving and impulse control is limited. Vitals/I&O/Wt Last Vital Signs Temp 98.1 F 04/26/20 14:00 Pulse 66 04/26/20 14:00 Resp 18 04/26/20 14:00 BP 122/72 04/26/20 14:00 Pulse Ox 97 04/26/20 14:00 Physical Exam Urinary Catheter Management^: Ingram: Cath Placed During This Visit: yes, but has since been removed by the nurse Urinary Catheter Date of Insertion: 04/08/20 Urinary Catheter Time of Insertion: 11:45 Date Urinary Catheter Removed: 04/08/20 Time Urinary Catheter Discontinued: 13:54 Data NPU : 04/18/20 06:55 04/18/20 06:55 A&P Additional A&P Information (1) Closed supracondylar fracture of femur: (2) Anika-prosthetic fracture around prosthetic knee: (3) Fracture of femur: (4) Fall: Additional A&P Information (1) Atrial fibrillation: (2) S/P total knee arthroplasty: (3) Chest pain: (4) Hypertension: (5) Diabetes: (6) Anxiety: (7) Mood disorder: (8) Suicidal thoughts: (9) Adjustment disorder with mixed disturbance of emotions and conduct: This is a 54-year-old white male with a recent history of difficulties after his most recent divorce with some history of addiction who presented to the emergency department after a fall which led to a fractured femur, subsequent surgery and limited convalescence who presents now without his job and reporting suicidal thoughts. 1. Continue current medication. 2. Continue every 15 minute checks for safety. 3. Follow any recommendations from PT/OT and transferring DrAvel For appropriate care status post surgical repair of broken femur. 4. Encourage individual, group and milieu therapy. 5. Encourage sober living treatment after discharge at the highest level of care to which he is willing to commit. 6. Continue to work with treatment team to find a viable discharge plan. Is agreeable with discharge in the morning as we have exhausted all other options. We will sent to the local nursing home. Involuntary Hold Information 96 Hour Hold: 96 Hour Involuntary Admission: No Attestations NPU Medical Necessity Statement*: Inpatient hospitalization is medically necessary and the clinically appropriate intervention at this time. We will monitor medication and make changes as indicated. Plan for discharge in the morning Coding Level of Care Code Acute Linux Admin for Shreya Espinoza
--- NOTE | 2020-04-26 17:41 | PC.NURSE ---
Dressing change Removed tegaderm and steristrip dressing. Replaced steri strips on the left leg incision. Wound is clean, dry, and healing well. No s/s of infection noted at this time.
[2020-04-26 19:33] LABS: Glucose Point of Care 156 mg/dL (70-110)
[2020-04-26] MEDS: docusate sodium 100 mg Capsule PO (20:53)
[2020-04-26] MEDS: ARIPiprazole 10 mg Tablet PO (20:54)
[2020-04-26] MEDS: doxepin 10 mg Capsule PO (20:54)
[2020-04-26] MEDS: tizanidine 4 mg Tablet 2 MG PO (21:06)
[2020-04-26 22:00] VITALS: BP 122/70; PULSE 74; RESP 18; TEMP 36.8; O2SAT 96
[2020-04-27] MEDS: FUROsemide 40 mg Tablet PO (05:34)
[2020-04-27 06:00] VITALS: BP 124/74; PULSE 52; RESP 17; TEMP 36.9; O2SAT 93
[2020-04-27 06:39] LABS: Glucose Point of Care 86 mg/dL (70-110)
[2020-04-27] MEDS: insulin glargine 100 units/1 mL 40 UNIT SUBCUT (08:03)
[2020-04-27] MEDS: nystatin powder 15 gm Btl 1 APPLIC TOPICAL (08:03)
[2020-04-27] MEDS: amlodipine 10 mg Tablet PO (08:04)
[2020-04-27] MEDS: carvedilol 6.25 mg Tablet PO (08:04)
[2020-04-27] MEDS: ropinirole 1 mg Tablet PO (08:04)
[2020-04-27] MEDS: hyDROXYzine 25 mg Capsule PO (08:04)
[2020-04-27] MEDS: multivitamin therapeutic Tablet 1 TAB PO (08:04)
[2020-04-27] MEDS: sertraline 100 mg Tablet 150 MG PO (08:04)
[2020-04-27] MEDS: spironolactone 25 mg Tablet 50 MG PO (08:04)
[2020-04-27] MEDS: apixaban 5 mg Tablet PO (08:04)
[2020-04-27] MEDS: CELEcoxib 200 mg Capsule PO (08:04)
[2020-04-27] MEDS: gabapentin 300 mg Capsule 600 MG PO (08:04)
[2020-04-27] MEDS: ferrous gluconate 324 mg Tablet PO (08:04)
[2020-04-27] MEDS: famotidine 20 mg Tablet PO (08:05)
[2020-04-27 08:28] VITALS: BP 124/74; PULSE 82; RESP 17; TEMP 36.9; O2SAT 93
--- NOTE | 2020-04-27 11:20 | P.DS_ITS ---
Diagnoses at Discharge Discharge Diagnosis (1) Fall: Status: Acute (2) Fracture of femur: Status: Acute Qualifiers: Encounter type: initial encounter Femur location: distal, unspecified portion Fracture morphology: unspecified fracture morphology Fracture type: closed Laterality: left Qualified Code(s): S72.402A - Unspecified fracture of lower end of left femur, initial encounter for closed fracture (3) Atrial fibrillation: Status: Acute Qualifiers: Atrial fibrillation type: unspecified chronic Qualified Code(s): I48.20 - Chronic atrial fibrillation, unspecified (4) Congestive heart failure: Status: Acute Qualifiers: Heart failure chronicity: chronic Heart failure type: unspecified Qualified Code(s): I50.9 - Heart failure, unspecified (5) Hypertension: Status: Acute Qualifiers: Hypertension type: essential hypertension Qualified Code(s): I10 - Essential (primary) hypertension (6) Diabetes: Status: Acute Qualifiers: Diabetes mellitus complication status: with hyperglycemia Diabetes mellitus longterm insulin use: with bed bug exterminator use Diabetes mellitus type: type 2 Qualified Code(s): E11.65 - Type 2 diabetes mellitus with hyperglycemia; Z79.4 - termite helper (current) use of insulin (7) Anxiety: Status: Acute (8) S/P total knee arthroplasty: Status: Acute Permanent problem details: Left total knee arthroplasty utilizing the following [place] implants: A size 6 triathlon posterior stabilized press-fit left femoral component, a size 7 triathlon titanium tibial component, press-fit, a triathlon tibial bearing insert size 7 x 9 mm, and an asymmetric 38 mm x 11 mm patella Qualifiers: Laterality: left Qualified Code(s): Z96.652 - Presence of left artificial knee joint (9) COVID-19: Status: Resolved (10) Suicidal ideation: Status: Resolved Reason for Visit Reason for Visit: TWISTED L LEG AFTER FALL WITH DEFORMITY Brief History: History of Present Illness Chun Webster JR is a 54 year old male who presented to [facility] ED with a fractured leg and then was admitted to the MedSurg unit for definitive treatment of those issues. While on the MedSurg unit there was a psychiatric consult on 04/13/2020 with the following report: History of Present Illness Chun Webster JR is a 54 year old male who presented to the emergency department with the following report: Chief Complaint: Extremity Injury, Lower Stated Complaint: TWISTED L LEG AFTER FALL WITH DEFORMITY Time Seen by Provider: 04/06/20 16:21 Source: patient and EMS Mode of arrival: EMS Limitations: no limitations History of Present Illness: HPI Narrative: 54-year-old male states he fell over a rock at home just prior to arrival. He states he twisted his left knee. He had knee replacement in December and has severe pain to that knee currently. He does have deformity noted states he was unable to bear weight and is unable to bend it. Denies any ankle or hip pain. He states his pain is much worse when he tries to move and improved with rest. Associated symptoms-after fall: Denies abdominal pain, chest pain or headache(s) He was admitted to the hospital preoperatively for surgery. Surgery was performed and he went to the [facility] unit for postop care and convalescence. Upon attempted discharge, he had limited options and endorsed being suicidal which led to the psychiatric consult to ensure safety for discharge. Chun presented reporting that he had made those statements but that he was primarily focused on not going to the local assisted. He reports that he does not like being in there and he would rather be in his car. He endorsed that he has been taking his medication and that it has been effective. He denied any need for any changes. He reports that things have been tough at a certain level and he is hoping that they get better. He denied that he wanted to kill himself only saying that he did not want to go to the assisted he just wanted them to give him a ride to his car to his car. We reviewed his last inpatient evaluation and excerpt is included below for context. Per his 03/05/2020 [facility] inpatient eval: History of Present Illness Chun Webster JR is a 54 year old male who presented to the emergency department with the following report: Chief Complaint: Chest Pain Stated Complaint: chest pain Time Seen by Provider: 03/04/20 04:56 Source: patient and EMS Mode of arrival: EMS Limitations: no limitations History of Present Illness: HPI narrative: Mr. Webster is a nice 54-year-old male who comes in complaining of chest pain that awoke him from sleep. He states that he woke with chest pain described as a sharp pain that did not radiate. He also describes it as a tightness. He states that he noticed that he was sweating profusely upon awakening. He had associated shortness of breath along with nauseousness and he threw up twice. Patient states that the symptoms lasted for about 10 minutes after awakening and slowly dissipated until the resolution. Patient's not had any discomfort or symptoms since. Patient did call EMS who have stated they did not do anything in route as the patient's been asymptomatic since their picking him up. Patient states that he has a history of atrial fibrillation, congestive heart failure and heart attack but he is never received a stent only had a diagnostic heart cath. He states this was performed at [facility] in the past. Patient is currently on Eliquis for his atrial fibrillation. This time the patient states he is pain-free. Patient denies any similar symptoms to this recently. Associated symptoms: Reports diaphoresis, dyspnea, nausea and vomiting; Deny abdominal pain, fever(s), palpitations or syncope. He endorsed suicidal thoughts, and being overwhelmed in addition to the ED report and was admitted to the neuropsychiatric unit for definitive treatment of those issues. Today he presents reporting that this is his second psychiatric hospitalization with the first 1 being about a year ago. He reports that things got bad because his and he were getting a divorce and she took his children. He reports he still has not seen him since last March. He reports that he started getting therapy in [place] as well. He reports that there has been a bad week overall for reasons he did not really get into and reports that yesterday he just felt completely overwhelmed, had bad week turned into a very bad night, he had thoughts that were not good and so that is why he came to the hospital. That chest pain that was reported he has come to proceed has to be anxiety about his circumstances. He denies any history of previous suicide attempts. He denies smoking cigarettes, reports that he drinks alcohol very little but did have some drinking issues in the past, denies marijuana cocaine or any other illicit drug use. He did go to rehab in October 2019 for 42 days after having his 1 and only DUI in May 2019. He reports recently had to have his left knee replaced and has had some difficulty with ambulation. He reports that he was started on Abilify which has been helpful and that overall he feels his current medications are helpful he has had a really bad night has no interest in making any changes after we had a discussion of the risks, benefits and alternatives of possibly making changes. Psychiatric history: As above. Abuse 3: Above. Family history: He denies mental health or addiction issues or any suicide attempts or completions in his biological family. Developmental history: He denies any problems with his mom's with him or or delivery. He reports he learned to walk and talk and met his developmental milestones on time. He reports that once he went to school when he was younger he did not need speech therapy, learning support, emotional support or special education classes. Psychosocial history: He reports his mother and father were together when he was born and that he and his younger sister are the only product of that union. He reports that his childhood was great and he denies any emotional, physical or sexual abuse. 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 He endorses being a heterosexual with his longest relationship being 21 years. He was 3 times and 3 times, he has 2 children a 14-year-old son and 11-year-old daughter. He was in the for 2 months entering the [employer] but he had not told the truth about a knee problem he had and so he had a medical discharge. He reports he believes in God. 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 He currently lives in an apartment alone. Legal history: Never been in longterm or had significant legal peril. Medical history: Recent left knee surgery, history of cardiac problems like congestive heart failure diabetes hyperlipidemia hypertension and restless leg. Current history 04/16/2020: Continue with passive wish and suicidal thinking led to additional concerns and he was admitted to the neuropsychiatric unit for definitive treatment of those issues. He presents today reporting that he continued to f eel more more despondent. He reports that unfortunately secondary to his recent injuries he had to quit his job where he was making over $20 an hour. That on top of the disconnected relationship with his children and the holidays coming up he reports truly feeling like he did not want to go forward. We discussed the risks, benefits and alternatives of increasing his Abilify and Zoloft and he understood and agreed to proceed as is documented in this note. Also without his ability to earn an income and the fact that he was not at the job long enough to turn short-term disability he finds himself ultimately with nothing. He does have a sister who lives nearby that he is relatively estranged from and has reportedly denied him support or a place to stay. The rest of his family is in [place] and [place]. Leaving him currently unclear what he is going to do with his life given his current situation. He denies any substantive changes from his history as noted above. Hospital Course Hospital Course Chun presented to the emergency department secondary to a fall and a very complicated fracture is lower left leg. He was admitted to the [facility] department and definitive treatment of this injury was undertaken. Fortunately he did not have access to supportive discharge circumstances and began to endor se suicidal thinking and was ultimately transferred to the neuropsychiatric unit for definitive treatment. On the unit he slowly acclimated to the individual, group and milieu therapies provided. His Abilify and Zoloft were increased. He work with the treatment team to find a reasonable discharge circumstance which was difficult and ultimately he was discharged to a homeless assisted as other op tions were either nonexistent or evaporated. He was able to contract for safety prior to discharge. During the hospitalization, patient had routine laboratory studies which were within normal limits except for few outliers. Additionally he had a general medical evaluation which was also within normal limits and revealed no new acute processes. Discharge Summary: At the time of discharge, lethality was denied and psychosis was resolving. Mood and anxiety were well managed. Patient endorsed a plan to avoid all drugs of abuse and follow-up with the aftercare recommendations of the treatment team. Patient was evaluated and deemed to be absent credible lethality, and had achieved the maximum benefit from an inpatient hospitalization, so was discharged. Involuntary Hold Information 96 Hour Hold: 96 Hour Involuntary Admission: No Mental Status Exam MSE Comments: This is an obese white male with a hospital gown on with adequate, grooming and eye contact. No abnormal movements except for mild psychomotor retardation. Cooperative with exam in no acute distress. He was up nonweightbearing in his wheelchair. Speech was slightly decreased rate and volume. Mood described as all right, affect congruent. Thought process organized. Thought content: Patient denied any homicidal ideation and did not endorse any suicidal thinking, there were no delusions reported or noted, he denies any auditory or visual hallucinations. Attention and concentration appeared intact and memory appeared reliable but none were formally tested. He is alert and oriented x3. Insight and judgment are improving and impulse control is limited. Physical Exam Urinary Catheter Management^: Ingram: Cath Placed During This Visit: yes, but has since been removed by the nurse Urinary Catheter Date of Insertion: 04/08/20 Urinary Catheter Time of Insertion: 11:45 Date Urinary Catheter Removed: 04/08/20 Time Urinary Catheter Discontinued: 13:54 Discharge Data Data Completed and Pending: Completed Studies During Hospitalization Category Date Time Status XR chest 1V alexy ble [id number] Stat Exams 04/06/20 16:51 Completed XR knee LT 1-2V 7 3560 Routine Exams 04/08/20 Completed XR knee LT 3V* 73 562 Stat Exams 04/06/20 16:24 Completed Pending at discharge Category Date Time Status MRSA by PCR Cecei ne Lab 04/07/20 00:40 Received Labs from last 24 hours 04/27/20 04/26/20 04/26/20 06:35 19:26 16:18 POC Glucose 86 156 H 103 04/26/20 11:24 POC Glucose 163 H Vitals: Last Vital Signs Temp 98.4 F 04/27/20 08:28 Pulse 82 04/27/20 08:28 Resp 17 04/27/20 08:28 BP 124/74 04/27/20 08:28 Pulse Ox 93 04/27/20 08:28 Discharge Plan Discharge Patient Disposition: Home Health Service Condition: Stable Prescriptions: New aripiprazole 10 mg Tablet 10 mg PO DAILY@ 30 Days Qty: 30 RF: 1 celecoxib 200 mg Capsule 200 mg PO 899,2099 30 Days Qty: 60 RF: 1 sertraline 100 mg Tablet 150 mg PO DAILY@ 30 Days Qty: 45 RF: 1 doxepin 10 mg Capsule 10 mg PO BEDTIME 30 Days Qty: 30 RF: 1 famotidine 20 mg Tablet 20 mg PO 00,2099 30 Days Qty: 60 RF: 1 ferrous gluconate 324 mg (37.5 mg iron) Tablet 324 mg PO BIDWM Qty: 30 RF: 0 tizanidine 4 mg Tablet 2 mg PO TID PRN (Reason: Spasms) 30 Days Qty: 90 RF: 1 hydrocodone-acetaminophen 5-325 mg Tablet 1 tab PO Q12H PRN (Reason: Moderate Pain) 10 Days Qty: 15 RF: 0 Continued Multiple Vitamins Tablet 1 tab PO DAILY@ 30 Days Qty: 30 RF: 1 hydroxyzine HCl 25 mg Tablet 25 mg PO TID@,, 30 Days Qty: 90 RF: 1 fluticasone propionate 50 mcg/actuation spray,suspension 2 spray INTRANASAL DAILY PRN (Reason: Nasal Congestion) 30 Days Qty: 1 RF: 1 Changed furosemide 40 mg tablet 40 mg PO BID@, 30 Days Qty: 30 RF: 1 carvedilol 6.25 mg tablet 6.25 mg PO BID@, 30 Days Qty: 60 RF: 1 gabapentin 600 mg tablet 600 mg PO TID@,, 30 Days Qty: 90 RF: 1 ropinirole 1 mg tablet 1 mg PO BID@, 30 Days Qty: 60 RF: 1 spironolactone 25 mg tablet 25 mg PO DAILY@ 30 Days Qty: 30 RF: 1 amlodipine 10 mg tablet 10 mg PO DAILY@ 30 Days Qty: 30 RF: 1 Lantus Solostar U-100 Insulin 100 unit/mL (3 mL) insulin pen 55 unit SUBCUT BID@, 30 Days Qty: 99 RF: 1 Eliquis 5 mg tablet 5 mg PO BID@, 30 Days Qty: 60 RF: 1 Discontinued sertraline 100 mg tablet 100 mg PO DAILY@ RF: 0 aripiprazole 5 mg tablet 5 mg PO DAILY@ RF: 0 Discharge Orders: Discharge Order (Routine); Ordered 04/27/20 Ordered By: Amber Blunt Referrals: [facility] [Outside] (Homeless assisted-They do have a bed open and are wheelchair accessible. Would need to go to the [facility]'s department for warrents check prior to arrival.) Ignacio Agosto M.D [Physician] - 05/16/20 12:30 pm (New patient-cardiology) Amber Blunt MD [Physician] - 05/05/20 2:00 pm (Post op follow up. Very important you attend!!!) Contreras Faustin DO [Primary Care Provider] - 05/05/20 9:20 am (Hospital follow up) Liliana Lama MD [Physician] - 05/18/20 10:00 am (new patient appointment) Discharge Diet: Usual diet Discharge Activity: Limit activity as instructed and Use walker/crutches as instructed Patient Instructions: Diabetes and Diet, Leg Fracture (DC), Surgical Site Infections (GEN) Activity Restrictions/Additional Instructions: Please remain nonweightbearing only. Keep leg elevated as much as possible. Discharge Attestations NPU Time Spent in Discharge Care*: less than 30 min Specific Discharge Activities: Specific discharge activities: educating patient, discussing with community case manager/social workers/dc planners, documenting/other paperwork and evaluating patient/reviewing data Coding Level of Care Code Acute Tour Bus Driver for Chg Fwd Diagnoses Fall W19.XXXA Fracture of femur S72.402A Encounter type: initial encounter Femur location: distal, unspecified portion Fracture morphology: unspecified fracture morphology Fracture type: closed Laterality: left Atrial fibrillation I48.20 Atrial fibrillation type: unspecified chronic Congestive heart failure I50.9 Heart failure chronicity: chronic Heart failure type: unspecified Hypertension I10 Hypertension type: essential hypertension Diabetes E11.65; Z79.4 Diabetes mellitus complication status: with hyperglycemia Diabetes mellitus bed bug exterminator insulin use: with longterm use Diabetes mellitus type: type 2 Anxiety F41.9 S/P total knee arthroplasty Z96.652 Laterality: left COVID-19 U07.1 Suicidal ideation R45.850
--- NOTE | 2020-04-27 12:20 | PC.NURSE ---
Patient discharge Patient was taken out to uber ride in wheelchair. Patient got into car and tells NELI Alegria he didn't want to take that junk -referring to the wheelchair [place] from social services counselor got for him.
--- NOTE | 2020-06-23 15:32 | PC.SOCIAL ---
Notified on nasal swab culture collected on 04/13/2020 that was frozen due to machine being down. Result returned and was called to this nurse yesterday. Dr Garcia is out of town notified Phys Assistant Dr Tamara Graves and nothing further needed. Cutlure showed +MRSA in nasal passage. Called patient to update him and let him know as long as asymptomatic no further treatment needed and he should discuss result with PCP. He indicates he sees a provider at our clinic in [place] and he was made aware all records can be accessed from hospitalization. NO further questions.
== END 2020-04-27 12:19 | disposition home health service (06) | DRG 481 ==
LOC: ER 17:27 → MEDSURG 18:02 → NP 04-15 14:53
PROVIDERS: Family Medicine; Specialist; Admitting Provider Student in an Organized Health Care Education/Training Program; Emergency Provider Emergency Medicine; PCP Electrodiagnostic Medicine; Visit Provider Psychiatry & Neurology Psychiatry
PROC: 0QHC04Z Insertion of Internal Fixation Device into Left Lower Femur, Open Approach (ICD-10-PCS; principal; 2020-04-08 10:25)
DX: S72.452A Displaced supracondylar fracture without intracondylar extension of lower end of left femur, initial encounter for closed fracture (principal); M97.12XA Periprosthetic fracture around internal prosthetic left knee joint, initial encounter; I48.20 Chronic atrial fibrillation, unspecified; D61.818 Other pancytopenia; R45.851 Suicidal ideations; W01.0XXA Fall on same level from slipping, tripping and stumbling without subsequent striking against object, initial encounter; I11.0 Hypertensive heart disease with heart failure; I50.9 Heart failure, unspecified; E11.42 Type 2 diabetes mellitus with diabetic polyneuropathy; F41.8 Other specified anxiety disorders; L40.9 Psoriasis, unspecified; Z86.19 Personal history of other infectious and parasitic diseases; N52.9 Male erectile dysfunction, unspecified; E78.5 Hyperlipidemia, unspecified; G25.81 Restless legs syndrome; D50.9 Iron deficiency anemia, unspecified; F39 Unspecified mood [affective] disorder; F43.25 Adjustment disorder with mixed disturbance of emotions and conduct; M75.102 Unspecified rotator cuff tear or rupture of left shoulder, not specified as traumatic; Z59.0 Homelessness
CPT/HCPCS: 12345; 36415; 36416; 64447; 71045; 73560; 73562; 76000; 76942; 80053; 81001; 81003; 82962; 83036; 83540; 83550; 83735; 83880; 84100; 84443; 85025; 85049; 85610; 85730; 86850; 86900; 86920; 87040; 87205; 87635; 87641; 93005; 94664; 96365; 96372; 96375; 97110; 97116; 97161; 97166; 97530; 97535; 97760; 99283; C1713; J0131; J0690; J1100; J1170; J1644; J1815 ×2; J2370; J2704; J2795; J3010; J3370; J3490; J7030; J7050; L1812

== ENCOUNTER → 2020-05-05 09:22 | Outpatient (BNVA) | payer MEDICAID, SELFPAY | PROVIDERS: PCP Registered Nurse; Visit Provider Specialist | DX: Z47.89 Encounter for other orthopedic aftercare (principal); Z96.652 Presence of left artificial knee joint; S72.452D Displaced supracondylar fracture without intracondylar extension of lower end of left femur, subsequent encounter for closed fracture with routine healing; X58.XXXD Exposure to other specified factors, subsequent encounter | CPT/HCPCS: 73552 ==

== ENCOUNTER → 2020-05-26 11:32 | Outpatient (BNVA) | payer MEDICAID, SELFPAY | PROVIDERS: PCP Registered Nurse; Visit Provider Specialist | DX: Z47.89 Encounter for other orthopedic aftercare (principal); S72.452D Displaced supracondylar fracture without intracondylar extension of lower end of left femur, subsequent encounter for closed fracture with routine healing; Z96.652 Presence of left artificial knee joint; X58.XXXD Exposure to other specified factors, subsequent encounter | CPT/HCPCS: 73552; 73562 ==

== ENCOUNTER → 2020-06-23 10:40 | Outpatient (BNVA) | payer MEDICAID, SELFPAY | PROVIDERS: PCP Registered Nurse; Visit Provider Specialist | DX: Z47.89 Encounter for other orthopedic aftercare (principal); Z96.652 Presence of left artificial knee joint; S72.452D Displaced supracondylar fracture without intracondylar extension of lower end of left femur, subsequent encounter for closed fracture with routine healing; X58.XXXD Exposure to other specified factors, subsequent encounter | CPT/HCPCS: 73552; 73560; 73565 ==

== ENCOUNTER 2020-07-03 06:56 | Inpatient (IN) | payer MEDICAID, SELFPAY ==
[2020-07-03 06:57] VITALS: BP 172/108; PULSE 95; RESP 16; TEMP 36.2; O2SAT 94; BMI 35.7
--- NOTE | 2020-07-03 07:02 | ED_ITS ---
HPI - Psych General: Chief Complaint: Psychiatric Symptoms Stated Complaint: SI Time Seen by Provider: 07/03/20 06:59 Source: patient Mode of arrival: ambulatory Limitations: no limitations History of Present Illness: HPI Narrative: 55-year-old male has a history depression states he has had suicidal thoughts over the last week. He states he has a plan to shoot himself and did have a 9 mm before he came. States that he has history of depression is supposed to be on antidepressants but states he is not taken them in over a month as he does not have insurance. He denies any worsening improving factors. Associated symptoms: Reports depression and suicidal ideation Review of Systems Const: Denies: fever(s), chills, body aches or change in appetite Eyes: Denies: blurry vision or eye discomfort ENMT: Denies: throat pain or dental pain Card: Denies: chest pain Resp: Denies: dyspnea GI: Denies: abdominal pain, nausea, vomiting or diarrhea : Denies: dysuria Musc: Denies: neck pain or back pain Skin/Breast: Denies: rash Neuro: Denies: headache(s) Psych: Reports: depression and suicidal ideation Max/Lymph: Denies: easy bruising All/Imm: Denies: urticaria PFSH ED PFSH: Medical History Angioedema Atrial fibrillation Congestive heart failure COVID-19 Diabetes Erectile dysfunction Hyperlipidemia Hypertension Neuropathy Psoriasis Restless leg syndrome Surgical History H/O knee surgery Hx of cardiac cath Family History Father Cancer Lung Mother Cancer Brain Other Diabetes Hypertension Social History Smoking and tobacco status: never smoked Alcohol intake: current Alcohol intake frequency: holidays/special occasions only Household members: friend(s) Housing: Apartment Physical Exam Const: COMMON NORMALS: no acute distress, patient oriented x3 and healthy appearing HENMT: COMMON NORMALS: normocephalic and atraumatic HEAD & SCALP: normocephalic and atraumatic Eye: COMMON NORMALS: Equal, round and reactive pupils present and EOMs intact bilaterally PUPIL: Yes Equal, round and reactive pupils present Neck/C-Spine: COMMON NORMALS: full ROM and supple Chest: COMMONS NORMALS: normal inspection of the chest and normal palpation of entire chest wall Resp: COMMON NORMALS: normal respiratory effort, No retractions, No use of accessory muscles and clear to auscultation bilaterally AUSCULTATION: clear to auscultation bilaterally Cardio: COMMON NORMALS: regular rate, regular rhythm and No murmurs present (Cardio) RATE: regular rate RHYTHM: regular rhythm GI: COMMON NORMALS: Normal to inspection, nondistended, normoactive bowel sounds present, Soft to palpation, non-tender and no masses PALPATION: Yes Soft to palpation Extremity: COMMON NORMALS: normal to inspection and full ROM Neuro: COMMON NORMALS: patient oriented x3, moves all extremities and no focal motor deficits Psych: COMMON NORMALS: mental status grossly normal, Normal thought process present and cooperative THOUGHT PROCESS: Normal thought process present THOUGHT CONTENT: Yes Suicidality present Skin: COMMON NORMALS: no rashes or lesions noted and no wounds GENERAL SKIN EXAM: no rashes or lesions noted MDM - Psych MDM Narrative: Medical decision making narrative: Patient presents here with suicidal ideation and is voluntarily wanting to get help. I spoke to Dr. Martin and will admit to the psychiatric unit Lab Data: Labs: Lab Results 07/03/20 07/03/20 07/03/20 Range/Units 07:16 07:16 07:21 WBC 7.2 (4.0-10.0) 10^3/ uL RBC 5.74 H (4.1-5.3) 10^6/u L Hgb 15.5 (11.7-16.6) g/dL Hct 48.7 (42.0-52.0) % MCV 84.8 (80-94) fL MCH 27.0 L (28.0-34.0) pg MCHC 31.8 (30.0-36.0) g/dL RDW 14.9 (12.1-15.1) % Plt Count 154 (130-400) 10^3/c mm MPV 12.7 H (7.4-10.4) fL Neut % (Auto) 64.4 % Lymph % (Auto) 22.7 % [place] % (Auto) 9.0 % Eos % (Auto) 2.2 % Baso % (Auto) 1.4 % Neut # (Auto) 4.63 (1.8-7.7) 10^3/u L Lymph # (Auto) 1.6 (0.8-4.8) 10^3/u L [place] # (Auto) 0.7 (0.2-0.9) 10^3/u L Eos # (Auto) 0.2 (0.0-0.8) 10^3/u L Baso # (Auto) 0.1 (0.0-0.1) 10^3/u L Nucleated RBC % (a uto) 0 % Nucleated RBCs # 0.0 /100WBC Sodium 133 L (136-145) mmol/L Potassium 4.2 (3.5-5.1) mmol/L Chloride 96 L (98-107) mmol/L Carbon Dioxide 26 (22-29) mmol/L Anion Gap 15.2 (5-19) BUN 9 (6-20) mg/dL Creatinine 0.7 (0.7-1.2) mg/dL GFR Calculation 117.5 (90-130) mL/min Glucose 397 H (65-115) mg/dL Calculated Osmolal ity 291 (285-295) mOsm/k g Calcium 8.7 (8.5-10.5) mg/dL Total Bilirubin 0.7 (0.15-1.2) mg/dL AST 32 (0-40) U/L ALT 22 (0-41) U/L Alkaline Phosphata se 403 H (40-130) IU/L Total Protein 8.3 (6.6-8.7) g/dL Albumin 4.2 (3.5-5.2) g/dL Globulin 4.1 (1.3-4.6) g/dL Salicylates < 0.3 L (3-10) mg/dL Urine Opiates Scre en Negative (Negative) ng/mL Acetaminophen < 5.0 L (10-30) ug/mL Ur Barbiturates Sc reen Negative (Negative) ng/mL Ur Phencyclidine S crn Negative (Negative) ng/mL Ur Amphetamines Sc reen Negative (Negative) ng/mL U Benzodiazepines Scrn Negative (Negative) ng/mL Urine Cocaine Scre en Negative (Negative) ng/mL U Marijuana (THC) Screen Negative (Negative) ng/mL Ethyl Alcohol 136 H (0-10) mg/dL Discharge Plan Discharge Patient Disposition: Admitted As Inpatient Admit Provider: Suresh Martin Clinical Impression: Suicidal ideation Condition: Stable Coding Level of Care Code ED Operations And Maintenance Technician for Taryng Fwd Exam Comprehensive
[2020-07-03 07:13] VITALS: PULSE 95; RESP 16; O2SAT 95
--- NOTE | 2020-07-03 07:27 | PC.NURSE ---
MICHAEL QURESHI Female : 10/04/1980 [facility] [id number] 07/03/20 07:20 - Nurse Note by Abdiel Coe RN Acct Num: [id number] : 10/04/1980 Patient Age: 39 Pt gowned , all garments and belongs removed. Sitter in doorway. Initialized on 07/03/20 07:20 - END OF NOTE 07/03/20 06:57 - Nurse Note by Abdiel Coe RN Acct Num: [id number] : 10/04/1980 Patient Age: 39 Received report assumed care. Pt laying on right side, restless in bed. C/O of left shoulder, down left arm and neck pain. States the combination of Fentanyl, Benadryl and Haldo eased the pain. Pt seen recently for the same problem. Does not have a PCP. Informed Dr Jacob. Initialized on 07/03/20 06:57 - END OF NOTE
--- NOTE | 2020-07-03 07:29 | PC.NURSE ---
Lights off, sheet given for warmth. Sitter at Doorway
[2020-07-03 07:30] LABS: Basophils # 0.1 10^3/uL (0.0-0.1); Basophils % 1.4 %; Eosinophils # 0.2 10^3/uL (0.0-0.8); Eosinophils % 2.2 %; Hematocrit 48.7 % (42.0-52.0); Hemoglobin 15.5 g/dL (11.7-16.6); Lymphocytes # 1.6 10^3/uL (0.8-4.8); Lymphocytes % 22.7 %; Mean Corpuscular HGB Conc 31.8 g/dL (30.0-36.0); Mean Corpuscular Volume 84.8 fL (80-94); Mean Platelet Volume 12.7 fL (7.4-10.4); Monocytes # 0.7 10^3/uL (0.2-0.9); Neutrophils # 4.63 10^3/uL (1.8-7.7); Neutrophils % 64.4 %; Nucleated Red Blood Cells % 0 %; Platelet Count 154 10^3/cmm (130-400); Red Blood Count 5.74 10^6/uL (4.1-5.3); Red Cell Distribution Width 14.9 % (12.1-15.1); White Blood Count 7.2 10^3/uL (4.0-10.0)
[2020-07-03 07:36] LABS: Amphetamines Screen Urine Negative (Negative); Barbiturates Screen Urine Negative (Negative); Benzodiazepines Screen Urine Negative (Negative); Cocaine Screen Urine Negative (Negative); Opiate Screen Urine Negative (Negative); PCP Screen Urine Negative (Negative); THC Screen Urine Negative (Negative)
--- NOTE | 2020-07-03 07:48 | PC.NURSE ---
Pt resting comfortably in bed with eyes closed. Pt noted to be talking in his sleep.
[2020-07-03 07:57] LABS: Alanine Aminotransferase 22 U/L (0-41); Albumin Level 4.2 g/dL (3.5-5.2); Alcohol Level 136 mg/dL (0-10); Alkaline Phosphatase 403 IU/L (40-130); Anion Gap 15.2 (5-19); Aspartate Amino Transferase 32 U/L (0-40); Blood Urea Nitrogen 9 mg/dL (6-20); Calcium 8.7 mg/dL (8.5-10.5); Carbon Dioxide 26 mmol/L (22-29); Chloride 96 mmol/L (98-107); Globulin 4.1 g/dL (1.3-4.6); Glomerular Filtration Rate 117.5 mL/min (90-130); Glucose 397 mg/dL (65-115); Osmolality Calculated 291 mOsm/kg (285-295); Potassium 4.2 mmol/L (3.5-5.1); Sodium 133 mmol/L (136-145); Total Bilirubin 0.7 mg/dL (0.15-1.2); Total Protein 8.3 g/dL (6.6-8.7)
[2020-07-03 08:09] LABS: Acetaminophen < 5.0 ug/mL (10-30); Salicylate < 0.3 mg/dL (3-10)
[2020-07-03 08:57] VITALS: BP 143/68; PULSE 75; RESP 18; O2SAT 96
--- NOTE | 2020-07-03 09:13 | PC.NURSE ---
Security called at 900 to escort pt to NPU
[2020-07-03] MEDS: ondansetron 4 MG Tablet PO ×2 (11:15→20:58)
[2020-07-03 13:57] VITALS: BP 142/94; PULSE 120; RESP 18; TEMP 37.3
--- NOTE | 2020-07-03 13:59 | ECG_ITS ---
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: : 1965 Requested By: Suresh Martin Order Number: [id number] [place] MD: REA YEBOAH Measurements Intervals [place] Rate: 103 P: 40 CO: 136 QRS: -45 QRSD: 129 T: 68 QT: 396 QTc: 519 Interpretive Statements SINUS TACHYCARDIA WITH FREQUENT VENTRICULAR PREMATURE COMPLEXES LEFT ANTERIOR FASCICULAR BLOCK [QRS AXIS <= -45, QR IN I, RS IN II] POSSIBLE LEFT VENTRICULAR HYPERTROPHY [VOLTAGE CRITERIA PLUS LAE OR QRS WIDENING] NONSPECIFIC T-WAVE ABNORMALITY Compared to ECG 04/07/2020 09:06:29 Ventricular premature complex(es) now present Left anterior fascicular block now present T-wave abnormality now present Sinus rhythm no longer present Left-axis deviation no longer present ST (T wave) deviation no longer present Electronically Signed On 07-03-2020 17:42:55 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
--- NOTE | 2020-07-03 14:33 | P.HP_ITS ---
Providers/Chief Complaint Admitting Physician: Suresh Martin MD Primary Care Provider: MAAME De Oliveira Chief Complaint: SI HPI NPU History of Present Illness Chun Webster Jr is a 55 year old male who presented to the emergency department with the following report: Chief Complaint: Psychiatric Symptoms Stated Complaint: SI Time Seen by Provider: 07/03/20 06:59 Source: patient Mode of arrival: ambulatory Limitations: no limitations History of Present Illness: HPI Narrative: 55-year-old male has a history depression states he has had suicidal thoughts over the last week. He states he has a plan to shoot himself and did have a 9 mm before he came. States that he has history of depression is supposed to be on antidepressants but states he is not taken them in over a month as he does not have insurance. He denies any worsening improving factors. Associated symptoms: Reports depression and suicidal ideation. He was admitted to the neuropsychiatric unit for definitive treatment of those issues. Darin presents today having last been in the hospital back in March. He reports he was discharged to a friend's house and remains there. He reports that he still struggles with economics and has not gotten any disability. He still follows with Dr. Zheng in relation to his left lower leg injury. He reports that he has had rougher time in the past month and a half because he is started drinking again. Additionally in the last couple weeks he started feeling a little worse a little more depressed. Additionally he reports that he did not get his medications refilled last week for 2 weeks secondary to all of his medications costing $150 and he will not having the money. We discussed the risk benefits and alternatives of restarting his home medication and he understood and agreed to proceed as is documented in his note. We requested a hospitalist consult secondary to some of the medications and getting some recommendations on how to restart them including his diabetes medications but also after he was seen he complained of chest pains and EKG was obtained along with the consult. An excerpt from his last inpatient consult/evaluation is included below for context as he denies any substantive changes since that ti me. Per his 04/16/2020 [facility] inpatient psychiatric eval: History of Present Illness Chun Webster JR is a 54 year old male who presented to [facility] with a fractured leg and then was admitted to the MedSurg unit for definitive treatment of those issues. While on the [facility] unit there was a psychiatric consult on 04/13/2020 with the following report: History of Present Illness Chun Webster JR is a 54 year old male who presented to the emergency department with the following report: Chief Complaint: Extremity Injury, Lower Stated Complaint: TWISTED L LEG AFTER FALL WITH DEFORMITY Time Seen by Provider: 04/06/20 16:21 Source: patient and EMS Mode of arrival: EMS Limitations: no limitations History of Present Illness: HPI Narrative: 54-year-old male states he fell over a rock at home just prior to arrival. He states he twisted his left knee. He had knee replacement in December and has severe pain to that knee currently. He does have deformity noted states he was unable to bear weight and is unable to bend it. Denies any ankle or hip pain. He states his pain is much worse when he tries to move and improved with rest. Associated symptoms-after fall: Denies abdominal pain, chest pain or headache(s) He was admitted to the hospital preoperatively for surgery. Surgery was performed and he went to the [facility] unit for postop care and convalescence. Upon attempted discharge, he had limited options and endorsed being suicidal which led to the psychiatric consult to ensure safety for discharge. Chun presented reporting that he had made those statements but that he was primarily focused on not going to the local [facility]. He reports that he does not like being in there and he would rather be in his car. He endorsed that he has been taking his medication and that it has been effective. He denied any need for any changes. He reports that things have been tough at a certain level and he is hoping that they get better. He denied that he wanted to kill himself only saying that he did not want to go to the [facility] he just wanted them to give him a ride to his car to his car. We reviewed his last inpatient evaluation and excerpt is included below for context. Per his 03/05/2020 [facility] eval: History of Present Illness Chun Webster JR is a 54 year old male who presented to the emergency department with the following report: Chief Complaint: Chest Pain Stated Complaint: chest pain Time Seen by Provider: 03/04/20 04:56 Source: patient and EMS Mode of arrival: EMS Limitations: no limitations History of Present Illness: HPI narrative: Mr. Webster is a nice 54-year-old male who comes in complaining of chest pain that awoke him from sleep. He states that he woke with chest pain described as a sharp pain that did not radiate. He also describes it as a tightness. He states that he noticed that he was sweating profusely upon awakening. He had associated shortness of breath along with nauseousness and he threw up twice. Patient states that the symptoms lasted for about 10 minutes after awakening and slowly dissipated until the resolution. Patient's not had any discomfort or symptoms since. Patient did call EMS who have stated they did not do anything in route as the patient's been asymptomatic since their picking him up. Patient states that he has a history of atrial fibrillation, congestive heart failure and heart attack but he is never received a stent only had a diagnostic heart cath. He states this was performed at [facility] in the past. Patient is currently on Eliquis for his atrial fibrillation. This time the patient states he is pain-free. Patient denies any similar symptoms to this recently. Associated symptoms: Reports diaphoresis, dyspnea, nausea and vomiting; Deny abdominal pain, fever(s), palpitations or syncope. He endorsed suicidal thoughts, and being overwhelmed in addition to the ED report and was admitted to the neuropsychiatric unit for definitive treatment of those issues. Today he presents reporting that this is his second psychiatric hospitalization with the first 1 being about a year ago. He reports that things got bad because his and he were getting a divorce and she took his children. He reports he still has not seen him since last March. He reports that he started getting therapy in [place] as well. He reports that there has been a bad week overall for reasons he did not really get into and reports that yesterday he just felt completely overwhelmed, had bad week turned into a very bad night, he had thoughts that were not good and so that is why he came to the hospital. That chest pain that was reported he has come to proceed has to be anxiety about his circumstances. He denies any history of previous suicide attempts. He denies smoking cigarettes, reports that he drinks alcohol very little but did have some drinking issues in the past, denies marijuana cocaine or any other illicit drug use. He did go to rehab in October 2019 for 42 days after having his 1 and only DUI in May 2019. He reports recently had to have his left knee replaced and has had some difficulty with ambulation. He reports that he was started on Abilify which has been helpful and that overall he feels his current medications are helpful he has had a really bad night has no interest in making any changes after we had a discussion of the risks, benef its and alternatives of possibly making changes. Psychiatric history: As above. Abuse 3: Above. Family history: He denies mental health or addiction issues or any suicide attempts or completions in his biological family. Developmental history: He denies any problems with his mom's with him or or delivery. He reports he learned to walk and talk and met his developmental milestones on time. He reports that once he went to school when he was younger he did not need speech therapy, learning support, emotional support or special education classes. Psychosocial history: He reports his mother and father were together when he was born and that he and his younger sister are the only product of that union. He reports that his childhood was great and he denies any emotional, physical or sexual abuse. 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 He endorses being a heterosexual with his longest relationship being 21 years. He was 3 times and 3 times, he has 2 children a 14-year-old son and 11-year-old daughter. He was in the for 2 months entering the [employer] but he had not told the truth about a knee problem he had and so he had a medical discharge. He reports he believes in God. 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 He currently lives in an apartment alone. Legal history: Never been in skilled nursing or had significant legal peril. Medical history: Recent left knee surgery, history of cardiac problems like congestive heart failure diabetes hyperlipidemia hypertension and restless leg. Current history 04/16/2020: Continue with passive wish and suicidal thinking led to additional concerns and he was admitted to the neuropsychiatric unit for definitive treatment of those issues. He presents today reporting that he continued to feel more more despondent. He reports that unfortunately secondary to his rec ent injuries he had to quit his job where he was making over $20 an hour. That on top of the disconnected relationship with his children and the holidays coming up he reports truly feeling like he did not want to go forward. We discussed the risks, benefits and alternatives of increasing his Abilify and Zoloft and he understood and agreed to proceed as is documented in this note. Also without his ability to earn an income and the fact that he was not at the job long enough to turn short-term disability he finds himself ultimately with nothing. He does have a sister who lives nearby that he is relatively estranged from and has reportedly denied him support or a place to stay. [place] Leaving him currently unclear what he is going to do with his life given his current situation. He denies any substantive changes from his history as noted above. Meds NPU Home Medications Medication Instructions Recorded Confirmed Last Taken Type Eliquis 5 mg PO BID@ 30 Days #60 tab 04/27/20 05/16/20 Unknown Rx Lantus Solostar U-100 Insulin 55 unit SUBCUT BID@ 30 Days 04/27/20 05/16/20 Unknown Rx #99 ml amlodipine 10 mg PO DAILY@ 30 Days #30 tab 04/27/20 05/16/20 Unknown Rx aripiprazole 10 mg PO DAILY@ 30 Days #30 tab 04/27/20 05/16/20 Unknown Rx carvedilol 6.25 mg PO BID@ 30 Days #60 04/27/20 05/16/20 Unknown Rx tab celecoxib 200 mg PO 00,2099 30 Days #60 cap 04/27/20 05/16/20 Unknown Rx doxepin 10 mg PO BEDTIME 30 Days #30 cap 04/27/20 05/16/20 Unknown Rx famotidine 20 mg PO 00,2099 30 Days #60 tab 04/27/20 05/16/20 Unknown Rx ferrous gluconate 324 mg PO BIDWM #30 tab 04/27/20 05/16/20 Unknown Rx fluticasone propionate 2 spray INTRANASAL DAILY PRN 30 04/27/20 05/16/20 Unknown Rx Days #1 unit furosemide 40 mg PO BID@, 30 Days #30 tab 04/27/20 05/16/20 Unknown Rx gabapentin 600 mg PO TID@,, 30 Days #90 04/27/20 05/16/20 Unknown Rx tab hydrocodone-acetaminophen 1 tab PO Q12H PRN 10 Days #15 tab 04/27/20 05/16/20 Unknown Rx hydroxyzine HCl 25 mg PO TID@,, 30 Days #90 04/27/20 05/16/20 04/05/20 Rx tab multivitamin [Multiple Vitamins] 1 tab PO DAILY@ 30 Days #30 tab 04/27/20 05/16/20 Unknown Rx ropinirole 1 mg PO BID@, 30 Days #60 tab 04/27/20 05/16/20 Unknown Rx sertraline 150 mg PO DAILY@ 30 Days #45 tab 04/27/20 05/16/20 Unknown Rx spironolactone 25 mg PO DAILY@ 30 Days #30 tab 04/27/20 05/16/20 Unknown Rx tizanidine 2 mg PO TID PRN 30 Days #90 tab 04/27/20 05/16/20 Unknown Rx Allergies Allergy/AdvReac Type Severity Reaction Status Date / Time trazodone Allergy Unknown Verified 06/23/20 10:53 PFSH NPU PFSH: Medical History (Updated 07/03/20 @ 19:31 by Paul Henry MD) Angioedema Atrial fibrillation Congestive heart failure COVID-19 Diabetes Erectile dysfunction Hyperlipidemia Hypertension Neuropathy Psoriasis Restless leg syndrome Surgical History H/O knee surgery Hx of cardiac cath Family History Father Cancer Lung Mother Cancer Brain Other Diabetes Hypertension Social History Smoking and tobacco status: never smoked Alcohol intake: current Alcohol intake frequency: holidays/special occasions only Substance/Drug Use: never Household members: friend(s) Housing: Apartment Mental Status Exam MSE Comments: This is an obese white male in hospital scrubs with adequate grooming and eye contact. No abnormal movements except for psychomotor retardation. Cooperative with exam in mild distress. Speech was decreased rate and volume. Mood described as depressed, affect congruent. Thought process organized. Eye: Patient denied any homicidal ideation did not endorse passive wish and suicidal ideation, there were no delusions reported or noted, he denied any auditory or visual hallucination. Attention and concentration were intact and memory appeared reliable but none were formally tested. He is alert and oriented x3. Insight and judgment were limited and impulse control appeared limited. Vitals/I&O/Wt Last Vital Signs Temp 97.2 F L 07/03/20 06:57 Pulse 95 07/03/20 06:57 Resp 16 07/03/20 06:57 BP 172/108 07/03/20 06:57 Pulse Ox 94 07/03/20 06:57 Weight last 48 hrs Weight 129.727 kg Data NPU : 07/04/20 06:30 07/04/20 06:30 A&P Assessment and plan (1) Has run out of medications: Status: Acute (2) Psoriasis: Status: Acute (3) Alcohol abuse: Status: Acute (4) Carbuncle of head: Status: Acute (5) Suicidal ideation: Status: Acute (6) Closed supracondylar fracture of femur: Status: Acute Qualifiers: Encounter type: initial encounter Laterality: left Qualified Code(s): S72.452A - Displaced supracondylar fracture without intracondylar extension of lower end of left femur, initial encounter for closed fracture (7) Anika-prosthetic fracture around prosthetic knee: Status: Acute Qualifiers: Encounter type: initial encounter Laterality: left Qualified Code(s): M97.12XA - Periprosthetic fracture around internal prosthetic left knee joint, initial encounter (8) Fracture of femur: Status: Acute Qualifiers: Encounter type: initial encounter Femur location: distal, unspecified portion Fracture morphology: unspecified fracture morphology Fracture type: closed Laterality: left Qualified Code(s): S72.402A - Unspecified fracture of lower end of left femur, initial encounter for closed fracture (9) Erectile dysfunction: Status: Acute Qualifiers: Erectile dysfunction type: due to other secondary cause Qualified Code(s): N52.1 - Erectile dysfunction due to diseases classified elsewhere (10) Restless leg syndrome: Status: Acute (11) Neuropathy: Status: Acute (12) Congestive heart failure: Status: Acute Qualifiers: Heart failure type: unspecified Heart failure chronicity: chronic Qualified Code(s): I50.9 - Heart failure, unspecified (13) Adjustment disorder with mixed disturbance of emotions and conduct: Status: Acute (14) Mood disorder: Status: Acute (15) Anxiety: Status: Acute (16) Diabetes: Status: Acute Qualifiers: Diabetes mellitus complication status: with hyperglycemia Diabetes mellitus oil heaterman insulin use: with oil heaterman use Diabetes mellitus type: type 2 Qualified Code(s): E11.65 - Type 2 diabetes mellitus with hyperglycemia; 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 (17) Hypertension: Status: Acute Qualifiers: Hypertension type: essential hypertension Qualified Code(s): I10 - Essential (primary) hypertension (18) Degenerative arthritis of left knee: Status: Resolved Qualifiers: Osteoarthritis type: primary Qualified Code(s): M17.12 - Unilateral primary osteoarthritis, left knee (19) S/P total knee arthroplasty: Status: Acute Qualifiers: Laterality: left Qualified Code(s): Z96.652 - Presence of left artificial knee joint (20) Atrial fibrillation: Status: Acute Qualifiers: Atrial fibrillation type: unspecified chronic Qualified Code(s): I48.20 - Chronic atrial fibrillation, unspecified Additional A&P Information This is a 55-year-old white male with a long history of depression and recent history of multiple medical comorbidities including significant Ortho concerns with recent surgeries who presents off of his medication reporting multiple issues including chest pain and suicidality. 1. Continue current medication. We will get hospitalist input on restarting his multiple medications. 2. Continue every 15 minute checks for safety. 3. Encourage individual, group and milieu therapies. 4. Encourage sober living treatment after discharge at the highest level of care to which he is willing to commit. 5. We will await hospitalist consult on chest pain and multiple other physical complaints. May need to consult Dr. Blunt to ensure proper sedation or restrictions on his recovering joints. Involuntary Hold Information 96 Hour Hold: 96 Hour Involuntary Admission: No Attestations NPU Medical Necessity Statement*: Inpatient hospitalization is medically necessary and the clinically appropriate intervention at this time. We will monitor medications and make changes as indicated. Patient will be in the hospital for over two midnights. Likely length of stay 3 to 5 days. Coding Level of Care Code Acute Coating Inspector for Chg Fwd Diagnoses Has run out of medications Z78.9 Psoriasis L40.9 Alcohol abuse F10.10 Carbuncle of head L02.831 Suicidal ideation R45.851 Closed supracondylar fracture of femur S72.452A Encounter type: initial encounter Laterality: left Anika-prosthetic fracture around prosthetic knee M97.12XA Encounter type: initial encounter Laterality: left Fracture of femur S72.402A Encounter type: initial encounter Femur location: distal, unspecified portion Fracture morphology: unspecified fracture morphology Fracture type: closed Laterality: left Erectile dysfunction N52.1 Erectile dysfunction type: due to other secondary cause Restless leg syndrome G25.81 Neuropathy G62.9 Congestive heart failure I50.9 Heart failure type: unspecified Heart failure chronicity: chronic Adjustment disorder with mixed disturbance of emotions and conduct F43.25 Mood disorder F39 Anxiety F41.9 Diabetes E11.65; Z79.4 Diabetes mellitus complication status: with hyperglycemia Diabetes mellitus oil heaterman insulin use: with intermediate use Diabetes mellitus type: type 2 Hypertension I10 Hypertension type: essential hypertension Degenerative arthritis of left knee M17.12 Osteoarthritis type: primary S/P total knee arthroplasty Z96.652 Laterality: left Atrial fibrillation I48.20 Atrial fibrillation type: unspecified chronic
--- NOTE | 2020-07-03 19:12 | P.CONIM_ITS ---
Providers/Reason For Consult Consulting Physican/Specialty*: Hospitalist Reason for Consult*: Diabetes management Attending Physician: Suresh Martin MD Primary Care Provider: MAAME De Oliveira History of Present Illness History of Present Illness Pleasant 55-year-old gentleman admitted on neuropsychiatric unit due to worsening depression, relapsing alcoholism, had noted to the psychiatry provider that he had ran out of his medications about 2 weeks ago, and has not subseque ntly taken any of his medicines. We are consulted to resume his medications. After getting through his chronic medical conditions, he also notes that he has been having a bump on the back of his head that had swelled up, has been tender, and started draining today. He was asking if this could be looked at. He denies fever or chills. He did not note this to me, but the RN also states he had complained of an episode of chest pressure earlier due to which they did an EKG. He was found to be in sinus tachycardia, although to me appears to be more like atrial fibrillation. He denies shortness of breath. Denies chest pain during my visit. He states that due to issues with his insurance he also had not been able to take his monthly shot for psoriasis. He states he plans to see the new derm atologist here to establish care. He is currently working with psychiatry and wants to seek help to help him quit drinking. Review of Systems Const: Denies: fever(s), chills, body aches or malaise Eyes: Denies: change in vision or eye redness ENMT: Denies: throat pain, oral sores or ear or mastoid pain Card: Denies: chest pain, edema, pre-syncope or dyspnea on exertion Resp: Denies: dyspnea, productive cough, change in phlegm color or hemoptysis GI: Denies: abdominal pain, nausea, vomiting, diarrhea, constipation, hematochezia or melena : Denies: flank pain, difficulty urinating, urinary frequency or hematuria Musc: Denies: back pain, joint swelling or joint redness Skin/Breast: Reports: new lesions (Swollen lump to his started draining today on the posterior lower L head) and other (Chronic psoriatic changes in the lower extremities, elbows); Denies: rash or sores Neuro: Denies: headache(s), numbness in extremities, weakness in extremities, dizziness, confusion or seizure-like activity Psych: Reports: depression Endo: Denies: polyuria or polydipsia Max/Lymph: Denies: easy bleeding or purpura All/Imm: Denies: urticaria, throat swelling or tongue swelling Meds/Allergies Home Medications and Allergies Home Medications Medication Instructions Recorded Confirmed Last Taken Type Eliquis 5 mg PO BID@, 30 Days #60 tab 04/27/20 05/16/20 Unknown Rx Lantus Solostar U-100 Insulin 55 unit SUBCUT BID@ 30 Days 04/27/20 05/16/20 Unknown Rx #99 ml amlodipine 10 mg PO DAILY@ 30 Days #30 tab 04/27/20 05/16/20 Unknown Rx aripiprazole 10 mg PO DAILY@ 30 Days #30 tab 04/27/20 05/16/20 Unknown Rx carvedilol 6.25 mg PO BID@ 30 Days #60 04/27/20 05/16/20 Unknown Rx tab celecoxib 200 mg PO 899,2099 30 Days #60 cap 04/27/20 05/16/20 Unknown Rx doxepin 10 mg PO BEDTIME 30 Days #30 cap 04/27/20 05/16/20 Unknown Rx famotidine 20 mg PO 0900,2099 30 Days #60 tab 04/27/20 05/16/20 Unknown Rx ferrous gluconate 324 mg PO BIDWM #30 tab 04/27/20 05/16/20 Unknown Rx fluticasone propionate 2 spray INTRANASAL DAILY PRN 30 04/27/20 05/16/20 Unknown Rx Days #1 unit furosemide 40 mg PO BID@ 30 Days #30 tab 04/27/20 05/16/20 Unknown Rx gabapentin 600 mg PO TID@,, 30 Days #90 04/27/20 05/16/20 Unknown Rx tab hydrocodone-acetaminophen 1 tab PO Q12H PRN 10 Days #15 tab 04/27/20 05/16/20 Unknown Rx hydroxyzine HCl 25 mg PO TID@,, 30 Days #90 04/27/20 05/16/20 04/05/20 Rx tab multivitamin [Multiple Vitamins] 1 tab PO DAILY@ 30 Days #30 tab 04/27/20 05/16/20 Unknown Rx ropinirole 1 mg PO BID@ 30 Days #60 tab 04/27/20 05/16/20 Unknown Rx sertraline 150 mg PO DAILY@ 30 Days #45 tab 04/27/20 05/16/20 Unknown Rx spironolactone 25 mg PO DAILY@ 30 Days #30 tab 04/27/20 05/16/20 Unknown Rx tizanidine 2 mg PO TID PRN 30 Days #90 tab 04/27/20 05/16/20 Unknown Rx Allergies Allergy/AdvReac Type Severity Reaction Status Date / Time trazodone Allergy Unknown Verified 06/23/20 10:53 Current Medications Current Medications Generic Name Dose Route Start Last Admin Trade Name Freq PRN Reason Stop Dose Admin Ondansetron HCl 4 mg 07/03/20 09:00 07/03/20 11:15 Ondansetron 4 Mg Tablet PO 4 mg Q6H PRN Administration NAUSEA AND VOMITING PFSH Acute PFSH: Medical History Angioedema Atrial fibrillation Congestive heart failure COVID-19 Diabetes Erectile dysfunction Hyperlipidemia Hypertension Neuropathy Psoriasis Restless leg syndrome Surgical History H/O knee surgery Hx of cardiac cath Family History Father Cancer Lung Mother Cancer Brain Other Diabetes Hypertension Social History Smoking and tobacco status: never smoked Alcohol intake: current Alcohol intake frequency: holidays/special occasions only Substance/Drug Use: never Household members: friend(s) Housing: Apartment Vitals/I&O/Wt Last Vital Signs Temp 99.1 F 07/03/20 13:57 Pulse 120 H 07/03/20 13:57 Resp 18 07/03/20 13:57 BP 142/94 07/03/20 13:57 Pulse Ox 96 07/03/20 08:57 Weight last 48 hrs Weight 129.727 kg Physical Exam Const: COMMON NORMALS: no acute distress and patient oriented x3 GENERAL APPEARANCE: cooperative ORIENTATION/CONSCIOUSNESS: Yes awake OTHER: Pleasant, conversant, with good insight. HENMT: COMMON NORMALS: oropharynx normal Neck/C-Spine: COMMON NORMALS: no JVD Resp: COMMON NORMALS: normal respiratory effort and clear to auscultation bilaterally AUSCULTATION: clear to auscultation bilaterally Cardio: COMMON NORMALS: no JVD, regular rhythm, S1 normal heart sound present, S2 normal heart sound present and No murmurs present (Cardio) RHYTHM: regular rhythm HEART SOUNDS: S1 normal heart sound present and S2 normal heart sound present GI: COMMON NORMALS: Normal to inspection, nondistended, normoactive bowel sounds present, Soft to palpation and non-tender PALPATION: Yes Soft to palpation Extremity: COMMON NORMALS: no joint enlargement and no pedal edema Neuro: COMMON NORMALS: patient oriented x3 and moves all extremities Skin: LESIONS: lesion noted (3cm carbuncle post lower L head) RASHES: rashes noted (Chronic psoriatic changes on lower extremities, elbows) NAILS: yellow and thickened (Toenails) A&P Assessment and plan (1) Has run out of medications: Has stopped taking his medications about 2 weeks ago. His current conditions reviewed with him. Medications resumed in the hospital for now with a few changes. Long-acting insulin dose for now decreased to avoid hypoglycemia, monitor glucose, increase back to home dose if glucose persistently elevated. Eliquis for now held as he will need I&D of the carbuncle on the back of his head. Please resume once this is safe. Other blood pressure medications resumed for now without amlodipine. Monitor blood pressure. Resume if needed. Please see below for details. Will likely need additional prescriptions for medications at discharge. Case management assistance with insurance. Status: Acute (2) Carbuncle of head: Noted during consultation for restarting of his chronic medications. Appears to be matured with small opening draining purulent contents. He is missed his diabetes medications for probably about 2 weeks. Hyperglycemic. Requested for culture from the opening. We are asking for surgical consultation for I&D. Starting on doxycycline (MRSA positive nasal swab in the past). Resume diabetes treatment. Eliquis for atrial fibrillation for now not resumed as he will need I&D. Please resume subsequently. Status: Acute (3) Diabetes: Resume long-acting insulin. Add moderate sliding scale insulin. Change to consistent carbohydrate diet. Status: Acute Qualifiers: Diabetes mellitus complication status: with hyperglycemia Diabetes mellitus longwall headgate operator insulin use: with longwall headgate operator use Diabetes mellitus type: type 2 Qualified Code(s): E11.65 - Type 2 diabetes mellitus with hyperglycemia; Z79.4 - termite exterminator (current) use of insulin (4) Atrial fibrillation: Resume carvedilol. Eliquis on hold for now due to need for I&D. Status: Acute Qualifiers: Atrial fibrillation type: unspecified chronic Qualified Code(s): I48.20 - Chronic atrial fibrillation, unspecified (5) Congestive heart failure: Chronic diastolic congestive heart failure. Currently appears compensated. Change diet to cardiac. Lasix as needed. Continue spironolactone. Would discontinue Celebrex on discharge. Status: Acute Qualifiers: Heart failure type: unspecified Heart failure chronicity: chronic Qualified Code(s): I50.9 - Heart failure, unspecified (6) Hypertension: Resume carvedilol. Spironolactone. Amlodipine held for now, if blood pressure rising, please resume. Status: Acute Qualifiers: Hypertension type: essential hypertension Qualified Code(s): I10 - Essential (primary) hypertension (7) Mood disorder: Currently undergoing assessment and treatment by psychiatry. Status: Acute (8) Alcohol abuse: Has relapsed recently, and is seeking help. Monitor for withdrawal. Continue vitamin supplementation. Status: Acute (9) Psoriasis: Please refer for follow-up with dermatology after discharge. Status: Acute Additional A&P Information Chest pressure: RN reports episode of chest pressure earlier, appears he had been tachycardic at that time. Has not been taking his medication. Resumed on carvedilol. During my visit no chest pressure or pain. No shortness of breath. Ordered EKG and troponin series. Please follow-up. Recent pancytopenia: Appears resolved COVID-19 infection in December Consult Attestations Medical Necessity Statement: Continue admission for assessment and management per psychiatry. Coding Level of Care Code Acute Jewelry Bearing Maker for g Fwd Diagnoses Has run out of medications Z78.9 Carbuncle of head L02.831 Diabetes E11.65; Z79.4 Diabetes mellitus complication status: with hyperglycemia Diabetes mellitus group home insulin use: with longwall headgate operator use Diabetes mellitus type: type 2 Atrial fibrillation I48.20 Atrial fibrillation type: unspecified chronic Congestive heart failure I50.9 Heart failure type: unspecified Heart failure chronicity: chronic Hypertension I10 Hypertension type: essential hypertension Mood disorder F39 Alcohol abuse F10.10 Psoriasis L40.9
[2020-07-03 20:39] LABS: Troponin(5th) Baseline 9 ng/L (0-15)
[2020-07-03 20:48] VITALS: BP 157/75; PULSE 88; RESP 18; TEMP 36.4; O2SAT 93
[2020-07-03 20:49] LABS: Glucose Point of Care 356 mg/dL (70-110)
[2020-07-03] MEDS: gabapentin 300 mg Capsule 600 MG PO (20:58)
[2020-07-03] MEDS: OLANZapine 5 mg ODT PO (20:59)
[2020-07-03] MEDS: doxycycline 100 mg Tablet PO (20:59)
[2020-07-03] MEDS: carvedilol 6.25 mg Tablet PO (20:59)
[2020-07-03] MEDS: hyDROXYzine 25 mg Capsule 50 MG PO (20:59)
[2020-07-03] MEDS: famotidine 20 mg Tablet PO (20:59)
[2020-07-03] MEDS: insulin glargine 100 units/1 mL 35 UNIT SUBCUT (21:00)
[2020-07-04 01:21] LABS: Troponin 5 2HR 11.05 ng/L (0-15)
[2020-07-04 06:00] VITALS: BP 137/85; PULSE 70; RESP 15; TEMP 36.8; O2SAT 95
[2020-07-04 06:34] LABS: Glucose Point of Care 189 mg/dL (70-110)
[2020-07-04 06:41] LABS: Hematocrit 43.8 % (42.0-52.0); Mean Corpuscular Hemoglobin 27.3 pg (28.0-34.0); Mean Corpuscular Volume 85.5 fL (80-94); Mean Platelet Volume 11.9 fL (7.4-10.4); Platelet Count 93 10^3/cmm (130-400); Red Blood Count 5.12 10^6/uL (4.1-5.3); Red Cell Distribution Width 14.6 % (12.1-15.1); White Blood Count 3.5 10^3/uL (4.0-10.0)
[2020-07-04 07:00] LABS: Alanine Aminotransferase 14 U/L (0-41); Albumin Level 3.4 g/dL (3.5-5.2); Alkaline Phosphatase 291 IU/L (40-130); Anion Gap 7.3 (5-19); Aspartate Amino Transferase 21 U/L (0-40); Blood Urea Nitrogen 10 mg/dL (6-20); Calcium 8.8 mg/dL (8.5-10.5); Carbon Dioxide 29 mmol/L (22-29); Chloride 95 mmol/L (98-107); Globulin 3.4 g/dL (1.3-4.6); Glomerular Filtration Rate 117.5 mL/min (90-130); Glucose 205 mg/dL (65-115); Osmolality Calculated 271 mOsm/kg (285-295); Potassium 3.3 mmol/L (3.5-5.1); Sodium 128 mmol/L (136-145); Total Bilirubin 1.1 mg/dL (0.15-1.2); Total Protein 6.8 g/dL (6.6-8.7)
[2020-07-04 08:04] LABS: Absolute Eosinophils 0.1 10^3/cmm (0.0-0.7); Band Neutrophils Absolute 0.1 10^3/cmm (0.0-1.2); Eosinophils 3 %; Lymphocytes 35 %; Monocytes Absolute 0.1 10^3/cmm (0.1-0.6); Segmented Neutrophils 56 %; Total Cells Counted 100 (0-100)
[2020-07-04 08:05] LABS: Giant Platelets Trace; Platelet Estimate Decreased (Normal)
--- NOTE | 2020-07-04 08:49 | PM.CONSULT ---
Providers/Reason For Consult Consulting Physican/Specialty*: General Surgery Gabriel Kimbrough MD Reason for Consult*: Apparent abscess on the back of the scalp/neck. Attending Physician: Suresh Martin MD Primary Care Provider: MAAME De Oliveira History of Present Illness History of Present Illness Chun Webster Jr is a 55 year old male currently in the [facility] for depression. He ran out of his medications including his medication for diabetes a couple of weeks ago. He never got them refilled. He says recently he has developed a bump on the back of his scalp at the top of his neck. Its been painful and started draining a little bit of material yesterday. Dr. Henry had seen the patient in medical consultation and asked if I would take a look at the apparent abscess. Review of Systems Const: Denies: fever(s) Skin/Breast: Reports: other (Draining area on the back of the scalp) Meds/Allergies Home Medications and Allergies Home Medications Medication Instructions Recorded Confirmed Last Taken Type Eliquis 5 mg PO BID@ 30 Days #60 tab 04/27/20 05/16/20 Unknown Rx Lantus Solostar U-100 Insulin 55 unit SUBCUT BID@ 30 Days 04/27/20 05/16/20 Unknown Rx #99 ml amlodipine 10 mg PO DAILY@ 30 Days #30 tab 04/27/20 05/16/20 Unknown Rx aripiprazole 10 mg PO DAILY@ 30 Days #30 tab 04/27/20 05/16/20 Unknown Rx carvedilol 6.25 mg PO BID@ 30 Days #60 04/27/20 05/16/20 Unknown Rx tab celecoxib 200 mg PO 00,2099 30 Days #60 cap 04/27/20 05/16/20 Unknown Rx doxepin 10 mg PO BEDTIME 30 Days #30 cap 04/27/20 05/16/20 Unknown Rx famotidine 20 mg PO 00,2099 30 Days #60 tab 04/27/20 05/16/20 Unknown Rx ferrous gluconate 324 mg PO BIDWM #30 tab 04/27/20 05/16/20 Unknown Rx fluticasone propionate 2 spray INTRANASAL DAILY PRN 30 04/27/20 05/16/20 Unknown Rx Days #1 unit furosemide 40 mg PO BID@ 30 Days #30 tab 04/27/20 05/16/20 Unknown Rx gabapentin 600 mg PO TID@ 30 Days #90 04/27/20 05/16/20 Unknown Rx tab hydrocodone-acetaminophen 1 tab PO Q12H PRN 10 Days #15 tab 04/27/20 05/16/20 Unknown Rx hydroxyzine HCl 25 mg PO TID@, 30 Days #90 04/27/20 05/16/20 04/05/20 Rx tab multivitamin [Multiple Vitamins] 1 tab PO DAILY@ 30 Days #30 tab 04/27/20 05/16/20 Unknown Rx ropinirole 1 mg PO BID@ 30 Days #60 tab 04/27/20 05/16/20 Unknown Rx sertraline 150 mg PO DAILY@01 26 Days #45 tab 04/27/20 05/16/20 Unknown Rx spironolactone 25 mg PO DAILY@ 30 Days #30 tab 04/27/20 05/16/20 Unknown Rx tizanidine 2 mg PO TID PRN 30 Days #90 tab 04/27/20 05/16/20 Unknown Rx Allergies Allergy/AdvReac Type Severity Reaction Status Date / Time trazodone Allergy Unknown Verified 06/23/20 10:53 Current Medications Current Medications Generic Name Dose Route Start Last Admin Trade Name Freq PRN Reason Stop Dose Admin Carvedilol 6.25 mg 07/03/20 22:00 07/03/20 20:59 Carvedilol 6.25 Mg Tablet PO 6.25 mg BID@ [place] Administration Doxycycline Monohydrate 100 mg 07/03/20 19:00 07/03/20 20:59 Doxycycline 100 Mg Tablet PO 100 mg BID [place] Administration Protocol Famotidine 20 mg 07/03/20 21:00 07/03/20 20:59 Famotidine 20 Mg Tablet PO 20 mg 0900,2100 [place] Administration Gabapentin 600 mg 07/03/20 22:00 07/03/20 20:58 Gabapentin 300 Mg Capsule PO 600 mg TID@ [place] Administration Hydroxyzine Pamoate 50 mg 07/03/20 09:00 07/03/20 20:59 Hydroxyzine 25 Mg Capsule PO 50 mg Q6H PRN Administration ANXIETY Insulin Aspart 0 unit 07/03/20 21:00 07/03/20 21:02 Insulin Aspart 100 Unit/1 Ml SUBCUT 14 unit WM&BEDTIME [place] Administration Protocol Insulin Glargine 35 unit 07/03/20 22:00 07/03/20 21:00 Insulin Glargine 100 Units/1 Ml SUBCUT 35 unit BID@0900,2200 [place] Administration Olanzapine 5 mg 07/03/20 09:00 07/03/20 20:59 Olanzapine 5 Mg Odt PO 5 mg Q4H PRN Administration Agitation/Psychosis Ondansetron HCl 4 mg 07/03/20 09:00 07/03/20 20:58 Ondansetron 4 Mg Tablet PO 4 mg Q6H PRN Administration NAUSEA AND VOMITING PFSH Acute PFSH: Medical History Angioedema Atrial fibrillation Congestive heart failure COVID-19 Diabetes Erectile dysfunction Hyperlipidemia Hypertension Neuropathy Psoriasis Restless leg syndrome Surgical History H/O knee surgery Hx of cardiac cath Family History Father Cancer Lung Mother Cancer Brain Other Diabetes Hypertension Social History Smoking and tobacco status: never smoked Alcohol intake: current Alcohol intake frequency: holidays/special occasions only Substance/Drug Use: never Household members: friend(s) Housing: Apartment Vitals/I&O/Wt Last Vital Signs Temp 98.2 F 07/04/20 06:00 Pulse 70 07/04/20 06:00 Resp 15 07/04/20 06:00 BP 137/85 07/04/20 06:00 Pulse Ox 95 07/04/20 06:00 Weight last 48 hrs Weight 286 lb Physical Exam Narrative: EXAM NARRATIVE: On examination, the patient has a somewhat erythematous and scabbed over protruding lesion on the back of his scalp towards the left side of the top of the neck/hairline. Upon palpation of the surrounding area small amount of purulent material comes from the center of the lesion. A&P Assessment and plan (1) Furuncle: I discussed the situation with the patient. Alternatives are to leave him on antibiotics or proceed with an incision and drainage procedure. I made him aware of that if there is an infected fluid collection in the subcutaneous tissue it would probably be best to get it drained. He was agreeable after we discussed the details of the procedure. The area was prepped and 1% lidocaine was used for local anesthetic. The skin was incised and only a very small amount of purulent material was encountered. Initially, I thought there may be a subcutaneous cyst but no well-defined cyst wall was ever identified. The area was dressed. Plan: Continue doxycycline and await culture results. Daily/as needed dressing changes. Status: Acute Consult Attestations Medical Necessity Statement: See admitting service's notation. Coding Level of Care Code Acute Spring Up Supervisor for Shreya Espinoza Diagnoses Furuncle L02.92
[2020-07-04] MEDS: gabapentin 300 mg Capsule 600 MG PO ×3 (08:50→21:08)
[2020-07-04] MEDS: famotidine 20 mg Tablet PO ×2 (08:50→21:08)
[2020-07-04] MEDS: folic acid 1 mg Tablet PO (08:51)
[2020-07-04] MEDS: thiamine 100 mg Tablet PO (08:51)
[2020-07-04] MEDS: multivitamin therapeutic Tablet 1 TAB PO (08:51)
[2020-07-04] MEDS: doxycycline 100 mg Tablet PO ×2 (08:51→21:08)
[2020-07-04] MEDS: carvedilol 6.25 mg Tablet PO ×2 (08:51→21:08)
[2020-07-04] MEDS: spironolactone 25 mg Tablet PO (08:51)
[2020-07-04] MEDS: insulin glargine 100 units/1 mL 35 UNIT SUBCUT ×2 (08:52→21:08)
[2020-07-04 11:18] LABS: Glucose Point of Care 310 mg/dL (70-110)
[2020-07-04 14:00] VITALS: BP 105/65; PULSE 79; RESP 18; TEMP 36.9; O2SAT 92
--- NOTE | 2020-07-04 14:02 | PM.NPN ---
Subjective NPU Subjective: Interval history: Chun presents today reporting that he is feeling a little tired with the introduction of all the medications that he had not taken recently. He reports overall that he feels better and that he was just feeling unsafe overall. We discussed allowing his Zoloft to get in the system for a couple of days before increasing. He reports he is sleeping a little better and eating fine. We discussed getting surgery involved to make sure he is managing his weightbearing and convalescence with his leg appropriately. Mental Status Exam MSE Comments: This is an obese white male in hospital scrubs with adequate grooming and eye contact. No abnormal movements except for psychomotor retardation. Cooperative with exam in no acute distress. Speech was decreased rate and volume. Mood described as depressed, affect congruent. Thought process organized. Thought content: Patient denied any homicidal ideation did not endorse passive wish and suicidal ideation, there were no delusions reported or noted, he denied any auditory or visual hallucination. Attention and concentration were intact and memory appeared reliable but none were formally tested. He is alert and oriented x3. Insight and judgment were limited and impulse control appeared limited. Vitals/I&O/Wt Last Vital Signs Temp 96.8 F L 07/04/20 22:00 Pulse 80 07/04/20 22:00 Resp 18 07/04/20 22:00 BP 125/71 07/04/20 22:00 Pulse Ox 94 07/04/20 22:00 Weight last 48 hrs Weight 129.727 kg Data NPU : 07/04/20 06:30 07/04/20 15:58 A&P Additional A&P Information (1) Has run out of medications: (2) Psoriasis: (3) Alcohol abuse: (4) Carbuncle of head: (5) Suicidal ideation: (6) Closed supracondylar fracture of femur: (7) Anika-prosthetic fracture around prosthetic knee: (8) Fracture of femur: (9) Erectile dysfunction: (10) Restless leg syndrome: (11) Neuropathy: (12) Congestive heart failure: (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 1. Continue current medication. 2. Continue every 15 minute checks for safety. 3. Encourage individual, group and milieu therapies. 4. Encourage sober living treatment after discharge at the highest level of care to which he is willing to commit. 5. We will await hospitalist consult on chest pain and multiple other physical complaints. May need to consult Dr. Blunt to ensure proper weightbearing or restrictions on his recovering joints. Involuntary Hold Information 96 Hour Hold: 96 Hour Involuntary Admission: No Attestations NPU Medical Necessity Statement*: Inpatient hospitalization is medically necessary and the clinically appropriate intervention at this time. We will monitor medications and make changes as indicated. Likely length of stay 2-4 days. Coding Level of Care Code Acute Aviation Technician Aircraft for Shreya Espinoza
--- NOTE | 2020-07-04 14:04 | P.PN_ITS ---
Subjective Subjective: Interval history: Patient was getting I&D by Dr. Kimbrough when I entered the room however patient did not complain of new pain headache fever nausea, vomiting. Vitals/I&O/Wt Last Vital Signs Temp 98.2 F 07/04/20 06:00 Pulse 70 07/04/20 06:00 Resp 15 07/04/20 06:00 BP 137/85 07/04/20 06:00 Pulse Ox 95 07/04/20 06:00 Weight last 48 hrs Weight 129.727 kg Physical Exam Narrative: EXAM NARRATIVE: Obese male With multiple psoriatic skin changes all over his body including abdominal fold No active signs of meningitis, fever or headache No active chest pain shortness of breath conversational dyspnea or abdominal pain Incision and drainage 1x1cm left suboccipital area done by Dr. Kimbrough, small amount of pus was drained, it looked very organized without any cystic fluid drainage Patient tolerated the procedure very well No acute neurological deficit Appropriate mood and affect Data : 07/04/20 06:30 07/04/20 06:30 A&P Assessment and plan (1) Furuncle: Incision and drainage done by general surgery Small amount of pus drained Continue doxycycline patient is afebrile no signs of meningitis We will touch base with high school social science teacher to arrange medications at home such as insulin and doxycycline We will follow up with culture and sensitivity, Status: Acute Attestations Medical Necessity Statement*: As per psychiatrist Time Spent in Patient Care: 20mins Coding Level of Care Code Acute Agricultural Lender for Shreya Espinoza Diagnoses Furuncle L02.92
[2020-07-04] MEDS: potassium chloride ER 20 mEq Tablet 40 MEQ PO (15:02)
[2020-07-04 16:26] LABS: Glucose Point of Care 281 mg/dL (70-110)
[2020-07-04 16:38] LABS: Anion Gap 12.3 (5-19); Blood Urea Nitrogen 13 mg/dL (6-20); Calcium 8.6 mg/dL (8.5-10.5); Carbon Dioxide 29 mmol/L (22-29); Chloride 102 mmol/L (98-107); Glomerular Filtration Rate 77.9 mL/min (90-130); Glucose 340 mg/dL (65-115); Osmolality Calculated 302 mOsm/kg (285-295); Potassium 4.3 mmol/L (3.5-5.1); Sodium 139 mmol/L (136-145)
[2020-07-04 17:18] LABS: Thyroid Stimulating Hormone 1.35 uIU/mL (0.27-4.20); Uric Acid 3.9 mg/dL (3.4-7.0)
[2020-07-04 19:40] LABS: Glucose Point of Care 300 mg/dL (70-110)
[2020-07-04 22:00] VITALS: BP 125/71; PULSE 80; RESP 18; TEMP 36; O2SAT 94
[2020-07-05 06:41] LABS: Glucose Point of Care 201 mg/dL (70-110)
[2020-07-05 06:44] VITALS: BP 133/78; PULSE 79; RESP 18; TEMP 36.5; O2SAT 95
[2020-07-05 06:45] LABS: Basophils # 0.1 10^3/uL (0.0-0.1); Basophils % 1.6 %; Eosinophils # 0.1 10^3/uL (0.0-0.8); Eosinophils % 2.7 %; Hematocrit 45.9 % (42.0-52.0); Hemoglobin 14.6 g/dL (11.7-16.6); Lymphocytes # 1.3 10^3/uL (0.8-4.8); Mean Corpuscular HGB Conc 31.8 g/dL (30.0-36.0); Mean Corpuscular Hemoglobin 27.6 pg (28.0-34.0); Mean Corpuscular Volume 86.8 fL (80-94); Monocytes # 0.3 10^3/uL (0.2-0.9); Monocytes % 7.8 %; Neutrophils # 1.97 10^3/uL (1.8-7.7); Neutrophils % 52.6 %; Nucleated Red Blood Cells % 0 %; Platelet Count 105 10^3/cmm (130-400); Red Blood Count 5.29 10^6/uL (4.1-5.3); Red Cell Distribution Width 14.8 % (12.1-15.1); White Blood Count 3.7 10^3/uL (4.0-10.0)
--- NOTE | 2020-07-05 08:59 | P.PN_ITS ---
Subjective Subjective: Interval history: Mr. Webster was sitting in open area watching television. He has taken his dressing off, he is not complaining of any headache, he has stayed afebrile, his sodium has improved, noticed high blood sugar last 24 hours I have increased his sliding scale to high dose and requested social media community manager Alessandra to look into senior financial reporting accountant because he will need long-term Lantus to avoid readmission to the hospital Mr. Webster did not complain of any pain, fever, headache, vision changes. Vitals/I&O/Wt Last Vital Signs Temp 97.7 F 07/05/20 06:44 Pulse 79 07/05/20 06:44 Resp 18 07/05/20 06:44 BP 133/78 07/05/20 06:44 Pulse Ox 95 07/05/20 06:44 Physical Exam Narrative: EXAM NARRATIVE: Was sitting comfortably in his chair watching television Was pleasant No active chest pain No acute respiratory distress No abdominal pain No neurological deficit Left suboccipital dried and crusted wound no active drainage, clotted blood around the incision area, hard indurated nodule, no signs of cellulitis Pleasant mood Psoriatic skin rash all over his body Data : 07/05/20 06:30 07/04/20 15:58 A&P Assessment and plan (1) Furuncle: Incision and drainage done yesterday by general surgery Continue doxycycline he has stayed afebrile Noticed high blood sugar for which I would escalate his sliding scale to high- dose I have also requested social media community manager to look into senior financial reporting accountant to provide Lantus on discharge, I would also request hemoglobin A1c level, currently set up an appointment with automobile locator for his uncontrolled type 2 diabetes His sodium has improved, no neurological deficit or changes most likely this was due to use of diuretics and hyperglycemia Kindly follow-up with general surgery for culture and sensitivity report would recommend continuing doxycycline for 14 days Patient is clinically doing better, medical team will sign off, please do not hesitate to call us for any questions you might have. Thank you for allowing us to participate in management of Mr. Webster Status: Acute Attestations Medical Necessity Statement*: As per psychiatrist Time Spent in Patient Care: 20mins Coding Level of Care Code Acute Reverser for [facility] Diagnoses Furuncle L02.92
[2020-07-05] MEDS: doxycycline 100 mg Tablet PO ×2 (09:04→21:15)
[2020-07-05] MEDS: multivitamin therapeutic Tablet 1 TAB PO (09:04)
[2020-07-05] MEDS: gabapentin 300 mg Capsule 600 MG PO ×3 (09:05→21:16)
[2020-07-05] MEDS: famotidine 20 mg Tablet PO ×2 (09:05→21:15)
[2020-07-05] MEDS: carvedilol 6.25 mg Tablet PO ×2 (09:05→21:15)
[2020-07-05] MEDS: ARIPiprazole 10 mg Tablet PO (09:05)
[2020-07-05] MEDS: sertraline 50 mg Tablet PO (09:06)
[2020-07-05] MEDS: spironolactone 25 mg Tablet PO (09:06)
[2020-07-05] MEDS: folic acid 1 mg Tablet PO (09:06)
[2020-07-05] MEDS: thiamine 100 mg Tablet PO (09:06)
[2020-07-05] MEDS: insulin glargine 100 units/1 mL 35 UNIT SUBCUT ×2 (09:11→21:17)
[2020-07-05 14:00] VITALS: BP 143/89; PULSE 93; RESP 18; TEMP 36.1; O2SAT 95
[2020-07-05 16:13] LABS: Glucose Point of Care 254 mg/dL (70-110)
[2020-07-05 16:43] LABS: Osmolality Serum 304 mOsm/kg (278-305)
--- NOTE | 2020-07-05 17:00 | P.PN_ITS ---
Subjective NPU Subjective: Interval history: Chun presents today now reestablished on all of his medications we will be restarting at this point. He reports that he is feeling better, he is using his walker and doing okay. He feels like he has a social security hearing tomorrow that he probably needs to be at. We discussed the risk benefits alternatives of considering discharge tomorrow if we confirm that, and he understood and agreed proceed as documented in this note. He is continuing to do fine with the lanced furuncle by the surgeon. Mental Status Exam MSE Comments: This is an obese white male in hospital scrubs with adequate grooming and eye contact. No abnormal movements. Cooperative with exam in no acute distress. Speech was more normal rate and volume. Mood described as a li ttle better, affect congruent. Thought process organized. Thought content: Patient denied suicidal or homicidal ideation, there were no delusions reported or noted, he denied any auditory or visual hallucination. Attention and concentration were intact and memory appeared reliable but none were formally tested. He is alert and oriented x3. Insight and judgment were fair and impulse control appeared limited, but improving. Vitals/I&O/Wt Last Vital Signs Temp 97.4 F L 07/05/20 20:11 Pulse 85 07/05/20 20:11 Resp 18 07/05/20 20:11 BP 148/81 07/05/20 20:11 Pulse Ox 85 L 07/05/20 20:11 Data NPU : 07/05/20 06:30 07/04/20 15:58 Micro: Microbiology 07/03/20 18:36 Wound Culture - Preliminary Head Staphylococcus aureus Microbiology 07/03/20 18:36 Head Wound Culture - Preliminary Staphylococcus aureus A&P Additional A&P Information (1) Has run out of medications: (2) Psoriasis: (3) Alcohol abuse: (4) Carbuncle of head: (5) Suicidal ideation: (6) Closed supracondylar fracture of femur: (7) Anika-prosthetic fracture around prosthetic knee: (8) Fracture of femur: (9) Erectile dysfunction: (10) Restless leg syndrome: (11) Neuropathy: (12) Congestive heart failure: (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 1. Continue current medication. 2. Continue every 15 minute checks for safety. 3. Encourage individual, group and milieu therapies. 4. Encourage sober living treatment after discharge at the highest level of care to which he is willing to commit. 5. Possible discharge tomorrow. Involuntary Hold Information 96 Hour Hold: 96 Hour Involuntary Admission: No Attestations NPU Medical Necessity Statement*: Inpatient hospitalization is medically necessary and the clinically appropriate intervention at this time. We will monitor medications and make changes as indicated. Likely length of stay 1-3 days. Coding Level of Care Code Acute Air Support Operations Operator for Shreya Espinoza
[2020-07-05 19:39] LABS: Glucose Point of Care 303 mg/dL (70-110)
[2020-07-05 20:11] VITALS: BP 148/81; PULSE 85; RESP 18; TEMP 36.3; O2SAT 85
[2020-07-06 06:00] VITALS: BP 143/89; PULSE 76; RESP 15; TEMP 36.8; O2SAT 94
[2020-07-06 06:24] LABS: Glucose Point of Care 199 mg/dL (70-110)
[2020-07-06] MEDS: doxycycline 100 mg Tablet PO (07:49)
[2020-07-06] MEDS: gabapentin 300 mg Capsule 600 MG PO ×2 (07:50→11:33)
[2020-07-06] MEDS: multivitamin therapeutic Tablet 1 TAB PO (07:50)
[2020-07-06] MEDS: ARIPiprazole 10 mg Tablet PO (07:51)
[2020-07-06] MEDS: thiamine 100 mg Tablet PO (07:52)
[2020-07-06] MEDS: carvedilol 6.25 mg Tablet PO (07:52)
[2020-07-06] MEDS: sertraline 50 mg Tablet PO (07:52)
[2020-07-06] MEDS: famotidine 20 mg Tablet PO (07:53)
[2020-07-06] MEDS: spironolactone 25 mg Tablet PO (07:53)
[2020-07-06] MEDS: folic acid 1 mg Tablet PO (07:54)
[2020-07-06] MEDS: insulin glargine 100 units/1 mL 35 UNIT SUBCUT (07:56)
[2020-07-06 11:04] LABS: Glucose Point of Care 268 mg/dL (70-110)
--- NOTE | 2020-07-06 11:24 | PM.NDC ---
Diagnoses at Discharge Discharge Diagnosis (1) Furuncle: Status: Acute Reason for Visit Reason for Visit: SI Brief History: History of Present Illness Chun Webster Jr is a 55 year old male who presented to the emergency department with the following report: Chief Complaint: Psychiatric Symptoms Stated Complaint: SI Time Seen by Provider: 07/03/20 06:59 Source: patient Mode of arrival: ambulatory Limitations: no limitations History of Present Illness: HPI Narrative: 55-year-old male has a history depression states he has had suicidal thoughts over the last week. He states he has a plan to shoot himself and did have a 9 mm before he came. States that he has history of depression is supposed to be on antidepressants but states he is not taken them in over a month as he does not have insurance. He denies any worsening improving factors. Associated symptoms: Reports depression and suicidal ideation. He was admitted to the neuropsychiatric unit for definitive treatment of those issues. Darin presents today having last been in the hospital back in March. He reports he was discharged to a friend's house and remains there. He reports that he still struggles with economics and has not gotten any disability. He still follows with Dr. Zheng in relation to his left lower leg injury. He reports that he has had rougher time in the past month and a half because he is started drinking again. Additionally in the last couple weeks he started feeling a little worse a little more depressed. Additionally he reports that he did not get his medications refilled last week for 2 weeks secondary to all of his medications costing $150 and he will not having the money. We discussed the risk benefits and alternatives of restarting his home medication and he understood and agreed to proceed as is documented in his note. We requested a hospitalist consult secondary to some of the medications and getting some recommendations on how to restart them including his diabetes medications but also after he was seen he complained of chest pains and EKG was obtained along with the consult. An excerpt from his last inpatient consult/evaluation is included below for context as he denies any substantive changes since that time. Per his 04/16/2020 [facility] inpatient psychiatric eval: History of Present Illness Chun Webster JR is a 54 year old male who presented to [facility] with a fractured leg and then was admitted to the MedSurg unit for definitive treatment of those issues. While on the MedSurg unit there was a psychiatric consult on 04/13/2020 with the following report: History of Present Illness Chun Webster JR is a 54 year old male who presented to the emergency department with the following report: Chief Complaint: Extremity Injury, Lower Stated Complaint: TWISTED L LEG AFTER FALL WITH DEFORMITY Time Seen by Provider: 04/06/20 16:21 Source: patient and EMS Mode of arrival: EMS Limitations: no limitations History of Present Illness: HPI Narrative: 54-year-old male states he fell over a rock at home just prior to arrival. He states he twisted his left knee. He had knee replacement in December and has severe pain to that knee currently. He does have deformity noted states he was unable to bear weight and is unable to bend it. Denies any ankle or hip pain. He states his pain is much worse when he tries to move and improved with rest. Associated symptoms-after fall: Denies abdominal pain, chest pain or headache(s) He was admitted to the hospital preoperatively for surgery. Surgery was performed and he went to the [facility] unit for postop care and convalescence. Upon attempted discharge, he had limited options and endorsed being suicidal which led to the psychiatric consult to ensure safety for discharge. Chun presented reporting that he had made those statements but that he was primarily focused on not going to the local usp. He reports that he does not like being in there and he would rather be in his car. He endorsed that he has been taking his medication and that it has been effective. He denied any need for any changes. He reports that things have been tough at a certain level and he is hoping that they get better. He denied that he wanted to kill himself only saying that he did not want to go to the usp he just wanted them to give him a ride to his car to his car. We reviewed his last inpatient evaluation and excerpt is included below for context. Per his 03/05/2020 [facility] inpatient eval: History of Present Illness Chun Webster JR is a 54 year old male who presented to the emergency department with the following report: Chief Complaint: Chest Pain Stated Complaint: chest pain Time Seen by Provider: 03/04/20 04:56 Source: patient and EMS Mode of arrival: EMS Limitations: no limitations History of Present Illness: HPI narrative: Mr. Webster is a nice 54-year-old male who comes in complaining of chest pain that awoke him from sleep. He states that he woke with chest pain described as a sharp pain that did not radiate. He also describes it as a tightness. He states that he noticed that he was sweating profusely upon awakening. He had associated shortness of breath along with nauseousness and he threw up twice. Patient states that the symptoms lasted for about 10 minutes after awakening and slowly dissipated until the resolution. Patient's not had any discomfort or symptoms since. Patient did call EMS who have stated they did not do anything in route as the patient's been asymptomatic since their picking him up. Patient states that he has a history of atrial fibrillation, congestive heart failure and heart attack but he is never received a stent only had a diagnostic heart cath. He states this was performed at [facility] in the past. Patient is currently on Eliquis for his atrial fibrillation. This time the patient states he is pain-free. Patient denies any similar symptoms to this recently. Associated symptoms: Reports diaphoresis, dyspnea, nausea and vomiting; Deny abdominal pain, fever(s), palpitations or syncope. He endorsed suicidal thoughts, and being overwhelmed in addition to the ED report and was admitted to the neuropsychiatric unit for definitive treatment of those issues. Today he presents reporting that this is his second psychiatric hospitalization with the first 1 being about a year ago. He reports that things got bad because his and he were getting a divorce and she took his children. He reports he still has not seen him since last March. He reports that he started getting therapy in [place] as well. He reports that there has been a bad week overall for reasons he did not really get into and reports that yesterday he just felt completely overwhelmed, had bad week turned into a very bad night, he had thoughts that were not good and so that is why he came to the hospital. That chest pain that was reported he has come to proceed has to be anxiety about his circumstances. He denies any history of previous suicide attempts. He denies smoking cigarettes, reports that he drinks alcohol very little but did have some drinking issues in the past, denies marijuana cocaine or any other illicit drug use. He did go to rehab in October 2019 for 42 days after having his 1 and only DUI in May 2019. He reports recently had to have his left knee replaced and has had some difficulty with ambulation. He reports that he was started on Abilify which has been helpful and that overall he feels his current medications are helpful he has had a really bad night has no interest in making any changes after we had a discussion of the risks, benefits and alternatives of possibly making changes. Psychiatric history: As above. Abuse 3: Above. Family history: He denies mental health or addiction issues or any suicide attempts or completions in his biological family. Developmental history: He denies any problems with his mom's with him or or delivery. He reports he learned to walk and talk and met his developmental milestones on time. He reports that once he went to school when he was younger he did not need speech therapy, learning support, emotional support or special education classes. Psychosocial history: He reports his mother and father were together when he was born and that he and his younger sister are the only product of that union. He reports that his childhood was great and he denies any emotional, physical or sexual abuse. He endorses that he graduated high school and had some additional training in [employer] ??? ultrasound for evaluation. He endorses being a heterosexual with his longest relationship being 21 years. He was 3 times and 3 times, he has 2 children a 14-year-old son and 11-year-old daughter. He was in the for 2 months entering the [employer] but he had not told the truth about a knee problem he had and so he had a medical discharge. He reports he believes in God. 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 He currently lives in an apartment alone. Legal history: Never been in [facility] or had significant legal peril. Medical history: Recent left knee surgery, history of cardiac problems like congestive heart failure diabetes hyperlipidemia hypertension and restless leg. Current history 04/16/2020: Continue with passive wish and suicidal thinking led to additional concerns and he was admitted to the neuropsychiatric unit for definitive treatment of those issues. He presents today reporting that he continued to feel more more despondent. He reports that unfortunately secondary to his recent injuries he had to quit his job where he was making over $20 an hour. That on top of the disconnected relationship with his children and the holidays coming up he reports truly feeling like he did not want to go forward. We discussed the risks, benefits and alternatives of increasing his Abilify and Zoloft and he understood and agreed to proceed as is documented in this note. Also without his ability to earn an income and the fact that he was not at the job long enough to turn short-term disability he finds himself ultimately with nothing. He does have a sister who lives nearby that he is relatively estranged from and has reportedly denied him support or a place to stay. The rest of his family is in [place] and [place]. Leaving him currently unclear what he is going to do with his life given his current situation. He denies any substantive changes from his history as noted above. Hospital Course Hospital Course Chun presented to the emergency department endorsing that he had relapsed, and was having depression with suicidal thoughts and has been off of his medication for period of time. He was admitted to the neuropsychiatric unit for definitive treatment of those issues. He slowly acclimated to the individual, group and milieu therapies provided. We restarted his medications with a positive response. He still had a safe place to return to and had hearing for disability pending and was able to contract for safety prior to discharge. During the hospitalization, patient had routine laboratory studies which were within normal limits except for few outliers. Additionally there was a general medical evaluation which was also within normal limits and revealed no new acute processes. Discharge Summary: At the time of discharge, lethality was denied and psychosis was resolving. Mood and anxiety were well managed. Patient endorsed a plan to avoid all drugs of abuse and follow-up with the aftercare recommendations of the treatment team. Patient was evaluated and deemed to be absent credible lethality, and had achieved the maximum benefit from an inpatient hospitalization, so was discharged. Involuntary Hold Information 96 Hour Hold: 96 Hour Involuntary Admission: No Mental Status Exam MSE Comments: This is an obese white male in hospital scrubs with adequate grooming and eye contact. No abnormal movements. Cooperative with exam in no acute distress. Speech was more normal rate and volume. Mood described as pretty good I guess, affect congruent. Thought process organized. Thought content: Patient denied suicidal or homicidal ideation, there were no delusions reported or noted, he denied any auditory or visual hallucination. Attention and concentration were intact and memory appeared reliable but none were formally tested. He is alert and oriented x3. Insight and judgment were fair and impulse control was improving. Discharge Data Data Completed and Pending: Pending at discharge Category Date Time Status Osmolality Urine Routine Lab 07/04/20 16:35 Received Wound Culture Sta t Lab 07/03/20 18:36 Results Labs from last 24 hours 07/06/20 07/06/20 07/05/20 11:01 06:17 19:33 POC Glucose 268 H 199 H 303 H Serum Osmolality 07/05/20 07/04/20 16:09 15:58 POC Glucose 254 H Serum Osmolality 304 Vitals: Last Vital Signs Temp 98.3 F 07/06/20 06:00 Pulse 76 07/06/20 06:00 Resp 15 07/06/20 06:00 BP 143/89 07/06/20 06:00 Pulse Ox 94 07/06/20 06:00 Discharge Plan Discharge Patient Disposition: Home Condition: Stable Prescriptions: New furosemide 40 mg Tablet 20 mg PO DAILY PRN (Reason: Edema) 30 Days Qty: 30 RF: 1 Lantus U-100 Insulin 100 unit/mL Solution 35 unit SUBCUT BID@00,0 30 Days Qty: 21 RF: 1 sertraline 100 mg tablet 100 mg PO DAILY 30 Days Qty: 30 RF: 1 Vitamin B-1 (mononitrate) 100 mg Tablet 100 mg PO DAILY 30 Days Qty: 30 RF: 1 Continued tizanidine 4 mg Tablet 2 mg PO TID PRN (Reason: Spasms) 30 Days Qty: 90 RF: 1 multivitamin [Multiple Vitamins] Tablet 1 tab PO DAILY@ 30 Days Qty: 30 RF: 1 ropinirole 1 mg tablet 1 mg PO BID@ 30 Days Qty: 60 RF: 1 Lantus Solostar U-100 Insulin 100 unit/mL (3 mL) insulin pen 55 unit SUBCUT BID@ 30 Days Qty: 99 RF: 1 celecoxib 200 mg Capsule 200 mg PO 899,2099 30 Days Qty: 60 RF: 1 carvedilol 6.25 mg tablet 6.25 mg PO BID@ 30 Days Qty: 60 RF: 1 gabapentin 600 mg tablet 600 mg PO TID@,, 30 Days Qty: 90 RF: 1 doxepin 10 mg Capsule 10 mg PO BEDTIME 30 Days Qty: 30 RF: 1 spironolactone 25 mg tablet 25 mg PO DAILY@ 30 Days Qty: 30 RF: 1 famotidine 20 mg Tablet 20 mg PO 0900,2100 30 Days Qty: 60 RF: 1 amlodipine 10 mg tablet 10 mg PO DAILY@ 30 Days Qty: 30 RF: 1 hydroxyzine HCl 25 mg Tablet 25 mg PO TID@09,12,22 30 Days Qty: 90 RF: 1 fluticasone propionate 50 mcg/actuation spray,suspension 2 spray INTRANASAL DAILY PRN (Reason: Nasal Congestion) 30 Days Qty: 1 RF: 1 aripiprazole 10 mg Tablet 10 mg PO DAILY@ 30 Days Qty: 30 RF: 1 ferrous gluconate 324 mg (37.5 mg iron) Tablet 324 mg PO BIDWM 30 Days Qty: 30 RF: 1 Eliquis 5 mg tablet 5 mg PO BID@, 30 Days Qty: 60 RF: 1 Discontinued sertraline 100 mg Tablet 150 mg PO DAILY@ 30 Days Qty: 45 RF: 1 furosemide 40 mg tablet 40 mg PO BID@, 30 Days Qty: 30 RF: 1 hydrocodone-acetaminophen 5-325 mg Tablet 1 tab PO Q12H PRN (Reason: Moderate Pain) 10 Days Qty: 15 RF: 0 Discharge Orders: Discharge Order (Routine); Ordered 07/06/20 Ordered By: Suresh Martin Referrals: [facility] [Outside] (Resource for outpatient mental health services. Contact for an intake assessment.) Amber Blunt MD [Physician] - 08/11/20 8:45 am Randi Damico FNP [Primary Care Provider] - Discharge Diet: Diabetic Discharge Activity: Limit activity as instructed Patient Instructions: Furosemide (By mouth), Thiamine (Vitamin B-1) (By mouth), Sertraline (By mouth), Doxycycline (Subgingival), Insulin Glargine (Injection) Activity Restrictions/Additional Instructions: Cjverónica Valladaresy with [facility] is helping with your Medicaid account. His contact number is [phone]. [phone] You were provided information for assistance with your Lantus. Fill out entry level finance application and have PCP sign. Discharge Attestations NPU Time Spent in Discharge Care*: less than 30 min Specific Discharge Activities: Specific discharge activities: educating patient, discussing with correctional case records supervisor/social workers/dc planners, documenting/other paperwork and evaluating patient/reviewing data Coding Level of Care Code Acute Contract Associate Manager for Ch[facility] Fwd Diagnoses Furuncle L02.92
[2020-07-06 11:39] VITALS: BP 143/89; PULSE 76; RESP 15; TEMP 36.8; O2SAT 94
[2020-07-06 16:32] LABS: Osmolality Urine 849 mOsm/kg (50-1200)
--- NOTE | 2020-07-07 13:09 | PC.NURSE ---
This RN notified by lab of critical lab on discharged patient of wound culture MRSA. This editorial writer contacted patient and informed him of MRSA and instructed to follow up with PCP and proper hygiene with wound to prevent spread of infection. Patient stated he did not hand picker his medication after discharge because he has no money. This editorial writer encouraged pt to make appt with PCP kofi.
== END 2020-07-06 11:50 | disposition home or self-care (01) | DRG 881 ==
LOC: ER 07:18 → NP 08:39
PROVIDERS: Internal Medicine; Admitting Provider Psychiatry & Neurology Psychiatry; Emergency Provider Emergency Medicine; PCP Registered Nurse; Visit Provider Psychiatry & Neurology Psychiatry
DX: F32.9 Major depressive disorder, single episode, unspecified (principal); R45.851 Suicidal ideations; I48.20 Chronic atrial fibrillation, unspecified; I50.32 Chronic diastolic (congestive) heart failure; Z91.120 Patient's intentional underdosing of medication regimen due to financial hardship; F10.10 Alcohol abuse, uncomplicated; I11.0 Hypertensive heart disease with heart failure; Z86.16 Personal history of COVID-19; E11.42 Type 2 diabetes mellitus with diabetic polyneuropathy; E11.65 Type 2 diabetes mellitus with hyperglycemia; N52.9 Male erectile dysfunction, unspecified; E78.5 Hyperlipidemia, unspecified; L40.9 Psoriasis, unspecified; G25.81 Restless legs syndrome; L02.12 Furuncle of neck; F41.9 Anxiety disorder, unspecified; Z79.01 Long term (current) use of anticoagulants; Z79.4 Long term (current) use of insulin; Z96.652 Presence of left artificial knee joint; F43.25 Adjustment disorder with mixed disturbance of emotions and conduct
CPT/HCPCS: 12345; 36415; 36416; 80048; 80053; 80306; 80307; 82962; 83930; 83935; 84443; 84484; 84550; 85007; 85025; 85027; 87070; 87077; 87186; 93005; 96372; 99285; J1815 ×2; Q0162

== ENCOUNTER → 2020-08-11 08:58 | Outpatient (BNVA) | payer MEDICAID, SELFPAY | PROVIDERS: PCP Registered Nurse; Visit Provider Specialist | DX: M97.12XD Periprosthetic fracture around internal prosthetic left knee joint, subsequent encounter (principal); Z96.652 Presence of left artificial knee joint; Z48.89 Encounter for other specified surgical aftercare; W19.XXXD Unspecified fall, subsequent encounter; Z98.890 Other specified postprocedural states | CPT/HCPCS: 73560; 73565 ==

== ENCOUNTER 2020-10-02 13:15 | Emergency (ER) | payer MEDICAID, SELFPAY ==
[2020-10-02 13:23] VITALS: BP 157/92; PULSE 82; RESP 16; TEMP 37.1; O2SAT 97; BMI 35.7
--- NOTE | 2020-10-02 13:32 | XRR_ITS ---
PROCEDURE INFORMATION: Exam: XR Right Hand Exam date and time: 10/02/2020 1:44 PM Age: 55 years old Clinical indication: Right ring finger pain and swelling. Injury to right hand. TECHNIQUE: Imaging protocol: XR Right hand. Views: 3 or more views. COMPARISON: No relevant prior studies available. FINDINGS: Dorsal soft tissue swelling involving the hand. There is generalized soft tissue swelling involving the 4th finger. No acute appearing fracture, dislocation or subluxation is seen. No periosteal reaction or supsicious bone lesion. The scapholunate and lunotriquetral intervals are maintained. No chondrocalcinosis is seen. A tiny ossicle posterior to the distal phalanx of the thumb likely reflects remote trauma. There is deformity of the distal phalanx of the thumb likely reflecting remote trauma. Possible small marginal erosion involving the radial aspect of the distal, proximal phalanx of the 3rd finger. XR/XR hand RT min 3V* 24160 IMPRESSION: 1. Dorsal soft tissue swelling involving the hand. There is generalized soft tissue swelling involving the 4th finger. No acute fracture is seen. Consider CT to further assess if there is continued clinical concern. 2. Possible small marginal erosion involving the radial aspect of the distal, proximal phalanx of the 3rd finger.
--- NOTE | 2020-10-02 13:33 | ED_ITS ---
HPI - Extremity Problem General: Chief complaint: Extremity Injury, Upper Stated complaint: right ring finger infection Time Seen by Provider: 10/02/20 13:26 History of Present Illness: HPI Narrative: Patient is a 55-year-old male comes to the ED with pain and swelling in fourth digit of right hand. Patient says approximately 4 days ago he noticed some swelling and itching to his fourth digit of right hand. Denies any injury or trauma to cause symptoms. He noticed after couple days it started developing a small hardy. Patient says he was in popped hardy with a needle and thick puslike drainage came out. He says his swelling and pain has only gotten worse over the past couple days. He rates his pain in his finger 6 out of 10. Patient did state that he has a history of MRSA. Associated symptoms: Deny chest pain, fever(s) or rash Review of Systems Const: Denies: fever(s), chills or fatigue Eyes: Denies: change in vision or eye discomfort ENMT: Denies: throat pain, odynophagia, nasal discharge or nasal congestion Card: Denies: chest pain, palpitations, edema, swelling of feet/ankles, dyspnea on exertion or orthopnea Resp: Denies: dyspnea, productive cough or non-productive cough GI: Denies: abdominal pain, nausea, vomiting, diarrhea, constipation or hematochezia : Denies: flank pain, difficulty urinating, dysuria or hematuria Musc: Reports: extremity pain (Fourth digit right hand) and extremity swelling (Fourth digit right hand.); Denies: neck pain or back pain Skin/Breast: Denies: rash or new lesions Neuro: Denies: headache(s), numbness in extremities or weakness in extremities PFSH ED PFSH: Medical History Angioedema Atrial fibrillation Congestive heart failure COVID-19 Diabetes Erectile dysfunction Hyperlipidemia Hypertension Neuropathy Psoriasis Restless leg syndrome Surgical History H/O knee surgery Hx of cardiac cath Family History Father Cancer Lung Mother Cancer Brain Other Diabetes Hypertension Social History Smoking and tobacco status: never smoked Alcohol intake: current Alcohol intake frequency: holidays/special occasions only Household members: friend(s) Housing: Apartment Physical Exam Const: COMMON NORMALS: no acute distress, patient oriented x3 and alert GENERAL APPEARANCE: cooperative and comfortable HENMT: COMMON NORMALS: normocephalic HEAD & SCALP: normocephalic MOUTH: Normal oral and palatal mucosa present THROAT: posterior oropharynx normal and uvula midline Neck/C-Spine: COMMON NORMALS: supple GENERAL: Yes normal visual inspection Resp: COMMON NORMALS: normal respiratory effort, No retractions, No use of accessory muscles and clear to auscultation bilaterally AUSCULTATION: clear to auscultation bilaterally Cardio: COMMON NORMALS: regular rate, regular rhythm, S1 normal heart sound present, S2 normal heart sound present, No gallops present (Cardio), No clicks present (Cardio), No murmurs present (Cardio) and Peripheral pulses 2+ throughout RATE: regular rate RHYTHM: regular rhythm HEART SOUNDS: S1 normal heart sound present and S2 normal heart sound present PERIPHERAL PULSES: Peripheral pulses 2+ throughout GI: COMMON NORMALS: Normal to inspection, nondistended, normoactive bowel sounds present, Soft to palpation, non-tender and no masses PALPATION: Yes Soft to palpation : COMMON NORMALS: Yes no CVA tenderness BLADDER/KIDNEY EXAM: Yes no CVA tenderness Back/Pelvis: COMMON NORMALS: no CVA tenderness Extremity: NARRATIVE EXTREMITY EXAM: Fourth digit right hand?significant swelling, erythema and warmth to proximal palmar side of fourth digit. Tender u mari palpation. Findings suggestive of cellulitis and possible abscess development. Neuro: COMMON NORMALS: patient oriented x3 and moves all extremities SENSORIUM/ORIENTATION: Yes alert Skin: NARRATIVE SKIN EXAM: Fourth digit right hand?significant swelling, erythema and warmth to proximal palmar side of fourth digit. Tender upon palpation. Findings suggestive of cellulitis and possible abscess development. GENERAL SKIN EXAM: dry skin Procedures Abscess I/D Site: hand (4th digit) Side (if applicable): right Sedation/analgesia: none Local Anesthetic: lidocaine 2% (digital block) Amount of anesthesia used (mL): 10 Amount of fluid expressed (mL): 3 (Purulent malodorous drainage) Irrigation: No Packing used?: none Nerve Block Nerve Block 1: Time out performed: Yes Local Anesthetic: lidocaine 2% Amount of anesthesia used (mL): 10 Side: right Nerve Blocks: digital (4th digit) Procedure Successful: Yes Patient Tolerated Procedure: well Complications: none Course Vital Signs: Vital signs: Vital Signs Temperature 98.7 F 10/02/20 13:23 Pulse Rate 85 10/02/20 15:06 Respiratory Rate 16 10/02/20 13:23 Blood Pressure 130/83 10/02/20 15:06 Pulse Oximetry 98 10/02/20 15:06 MDM - Extremity (Nontraumatic) MDM Narrative: Medical decision making narrative: Patient is a 55-year-old male comes to the ED with a swollen, painful right fourth digit. Patient denies any injury or trauma. Exam findings are suggestive of some cellulitis and possible abscess developing. X-ray of right hand showed no acute fractures or bony findings. I performed a digital block on patient's fourth digit using lidocaine 2%. I then performed an abscess I/D and 3 ml of pururlent drainage came out. Patient has a history of MRSA and by discharge patient home on clindamycin. I told him to follow-up with his PCP in 48 hours to recheck abscess. Return to ED precautions given. Patient understood agree with plan. Imaging Data^: Xray Ortho: Attestation: I personally reviewed and interpreted this imaging study as follows: My impression: Right hand x-ray showed no acute fracture or bone findings. Discharge Plan Discharge Patient Disposition: Home Clinical Impression: Cellulitis and abscess of finger, unspecified Condition: Stable Prescriptions: New clindamycin HCl 150 mg capsule 300 mg PO QID 7 Days Qty: 56 RF: 0 No Action Lantus U-100 Insulin 100 unit/mL solution 35 unit SUBCUT BID@0900,2200 30 Days Qty: 21 RF: 0 Lantus U-100 Insulin 100 unit/mL solution 45 unit SUBCUT BID@0900,2200 RF: 0 gabapentin 600 mg tablet 600 mg PO QID 30 Days Qty: 120 RF: 3 ropinirole 1 mg tablet 1 mg PO BID@, 30 Days Qty: 60 RF: 3 amlodipine 10 mg tablet 10 mg PO DAILY Qty: 30 RF: 3 apixaban 5 mg tablet 5 mg PO BID Qty: 60 RF: 3 spironolactone 25 mg tablet 25 mg PO DAILY Qty: 30 RF: 3 carvedilol 6.25 mg tablet 6.25 mg PO BID Qty: 60 RF: 3 Lantus Solostar U-100 Insulin 100 unit/mL (3 mL) insulin pen 55 unit SUBCUT BID@09,22 30 Days Qty: 99 RF: 3 multivitamin [Multiple Vitamins] Tablet 1 tab PO DAILY@09 30 Days Qty: 30 RF: 1 Vitamin B-1 (mononitrate) 100 mg Tablet 100 mg PO DAILY 30 Days Qty: 30 RF: 1 fluticasone propionate 50 mcg/actuation spray,suspension 2 spray INTRANASAL DAILY PRN (Reason: Nasal Congestion) 30 Days Qty: 1 RF: 1 Discharge Orders: Discharge ED (Routine); Ordered 10/02/20 Ordered By: Adeel Decker Referrals: Demarcus Rivera MD [Primary Care Provider] - Discharge Diet: Regular Discharge Activity: Resume usual activity Patient Instructions: Cellulitis (ED), Abscess Incision and Drainage (ED), Abscess (ED) Activity Restrictions/Additional Instructions: Follow-up with medical provider as directed in 48 hours to recheck infection. Take medications as prescribed. Return to the ER or your medical provider if condition worsens. Please read and understand discharge instructions. Thank you for choosing [facility] for your healthcare needs today. Please realize this is an emergency room and that we are providing you with a medical screening exam and this may not be complete and all inclusive of all the testing and or work up that you may need to determine your ailment or severity of your illness. It is very important that you follow up as instructed or that you return to the Emergency Department should you have concerns or if your condition changes or worsens in any way. Coding Level of Care Code ED Unit Support Representative for Shreya Fwbharti Exam Comprehensive
[2020-10-02 15:06] VITALS: BP 130/83; PULSE 85; O2SAT 98
[2020-10-02] MEDS: clindamycin 150 mg Capsule 300 MG PO (15:12)
[2020-10-02] MEDS: HYDROcodone-acetaminophen 7.5-325 mg Tablet 1 TAB PO (15:12)
== END 2020-10-02 15:15 | disposition home or self-care (01) ==
PROVIDERS: Emergency Provider Physician Assistant; PCP Family Medicine Adult Medicine
DX: L03.011 Cellulitis of right finger (principal); L02.511 Cutaneous abscess of right hand; Z79.4 Long term (current) use of insulin; I11.0 Hypertensive heart disease with heart failure; I50.9 Heart failure, unspecified; E78.5 Hyperlipidemia, unspecified; I48.91 Unspecified atrial fibrillation; E11.40 Type 2 diabetes mellitus with diabetic neuropathy, unspecified
CPT/HCPCS: 26010; 73130; 87070; 87075; 87077; 87186; 87205; 99283; A6446

== ENCOUNTER 2020-12-03 05:21 | Emergency (ER) | payer MEDICAID, SELFPAY ==
[2020-12-03 05:36] VITALS: BP 163/103; PULSE 72; RESP 18; TEMP 35.9; O2SAT 97; BMI 34.7
[2020-12-03 05:40] LABS: Glucose Point of Care 442 mg/dL (70-110)
--- NOTE | 2020-12-03 05:45 | W.ED.GENADLT ---
Documented by User: Alin Jacob MD 12/03/20 05:46 HPI - General Adult General: Chief complaint: General Medical Stated complaint: Blood Sugar 494 Time Seen by Provider: 12/03/20 05:45 Source: patient Mode of arrival: ambulatory Limitations: no limitations History of Present Illness: HPI narrative: 55-year-old male who has a history of diabetes states he is had difficulty getting his blood sugar down over the last day. States he uses Lantus at home and he states this morning his blood sugars in the 420s. He states he is getting concerned with his blood sugar that high. He states he is also had a flare of his psoriasis and does have a rash to bilateral legs. Denies any fever or cough. Denies any vomiting or diarrhea. Associated symptoms: Reports rash; Deny chest pain, dyspnea, headache(s), nausea or vomiting Review of Systems Const: Denies: fever(s), chills, body aches or change in appetite Eyes: Denies: blurry vision or eye discomfort ENMT: Denies: throat pain or dental pain Card: Denies: chest pain Resp: Denies: dyspnea GI: Denies: abdominal pain, nausea, vomiting or diarrhea : Denies: dysuria Musc: Denies: neck pain or back pain Skin/Breast: Reports: rash Neuro: Denies: headache(s) Psych: Denies: depression Max/Lymph: Denies: easy bruising All/Imm: Denies: urticaria PFSH ED PFSH: Medical History (Updated 12/03/20 @ 09:19 by Dell Harris DO) Acute bullous dermatitis Angioedema Anxiety and depression Atrial fibrillation Closed supracondylar fracture of femur Congestive heart failure COVID-19 Diabetes Erectile dysfunction Hyperlipidemia Hypertension Neuropathy Anika-prosthetic fracture around prosthetic knee Psoriasis Restless leg syndrome Surgical History (Updated 10/26/20 @ 08:12 by Demarcus Rivera MD) H/O knee surgery Hx of cardiac cath S/P total knee arthroplasty Left total knee arthroplasty utilizing the following Aman implants: A size 6 triathlon posterior stabilized press-fit left femoral component, a size 7 triathlon titanium tibial component, press-fit, a triathlon tibial bearing insert size 7 x 9 mm, and an asymmetric 38 mm x 11 mm patella Family History Father Cancer Lung Mother Cancer Brain Other Diabetes Hypertension Social History Smoking and tobacco status: never smoked Alcohol intake: current Alcohol intake frequency: holidays/special occasions only Household members: friend(s) Housing: Apartment Physical Exam Const: COMMON NORMALS: no acute distress, patient oriented x3 and healthy appearing HENMT: COMMON NORMALS: normocephalic and atraumatic HEAD & SCALP: normocephalic and atraumatic Eye: COMMON NORMALS: Equal, round and reactive pupils present and EOMs intact bilaterally PUPIL: Yes Equal, round and reactive pupils present Neck/C-Spine: COMMON NORMALS: full ROM and supple Chest: COMMONS NORMALS: normal inspection of the chest and normal palpation of entire chest wall Resp: COMMON NORMALS: normal respiratory effort, No retractions, No use of accessory muscles and clear to auscultation bilaterally AUSCULTATION: clear to auscultation bilaterally Cardio: COMMON NORMALS: regular rate, regular rhythm and No murmurs present (Cardio) RATE: regular rate RHYTHM: regular rhythm GI: COMMON NORMALS: Normal to inspection, nondistended, normoactive bowel sounds present, Soft to palpation, non-tender and no masses PALPATION: Yes Soft to palpation Extremity: COMMON NORMALS: normal to inspection and full ROM Neuro: COMMON NORMALS: patient oriented x3, moves all extremities and no focal motor deficits Psych: COMMON NORMALS: mental status grossly normal, Normal thought process present and cooperative THOUGHT PROCESS: Normal thought process present Skin: COMMON NORMALS: no wounds NARRATIVE SKIN EXAM: Psoriatic rash to bilateral legs Course Vital Signs: Vital signs: Vital Signs Temperature 98.7 F 12/03/20 05:49 Pulse Rate 73 12/03/20 10:25 Respiratory Rate 16 12/03/20 10:25 Blood Pressure 151/97 12/03/20 10:25 Pulse Oximetry 97 12/03/20 10:25 MDM - General Adult Lab Data: Labs: Lab Results 12/03/20 12/03/20 12/03/20 Range/Units 05:36 05:45 05:45 WBC 3.2 L (4.0-10.0) 10^3/ uL RBC 4.76 (4.1-5.3) 10^6/u L Hgb 13.8 (11.7-16.6) g/dL Hct 43.6 (42.0-52.0) % MCV 91.6 (80-94) fL MCH 29.0 (28.0-34.0) pg MCHC 31.7 (30.0-36.0) g/dL RDW 15.8 H (12.1-15.1) % Plt Count 72 L (130-400) 10^3/c mm MPV 12.3 H (7.4-10.4) fL Neut % (Auto) 60.6 % Lymph % (Auto) 26.4 % [place] % (Auto) 9.3 % Eos % (Auto) 2.8 % Baso % (Auto) 0.9 % Neut # (Auto) 1.95 (1.8-7.7) 10^3/u L Lymph # (Auto) 0.9 (0.8-4.8) 10^3/u L [place] # (Auto) 0.3 (0.2-0.9) 10^3/u L Eos # (Auto) 0.1 (0.0-0.8) 10^3/u L Baso # (Auto) 0.0 (0.0-0.1) 10^3/u L Nucleated RBC % (a uto) 0 % Nucleated RBCs # 0.0 /100WBC Sodium 131 L (136-145) mmol/L Potassium 4.5 (3.5-5.1) mmol/L Chloride 98 (98-107) mmol/L Carbon Dioxide 26 (22-29) mmol/L Anion Gap 11.5 (5-19) BUN 7 (6-20) mg/dL Creatinine 0.6 L (0.7-1.2) mg/dL GFR Calculation 140.4 H (90-130) mL/min Glucose 458 H (65-115) mg/dL POC Glucose 442 H (70-110) mg/dL Calculated Osmolal ity 290 (285-295) mOsm/k g Calcium 7.6 L (8.5-10.5) mg/dL Total Bilirubin 1.4 H (0.15-1.2) mg/dL AST 50 H (0-40) U/L ALT 29 (0-41) U/L Alkaline Phosphata se 258 H (40-130) IU/L Total Protein 6.2 L (6.6-8.7) g/dL Albumin 3.4 L (3.5-5.2) g/dL Globulin 2.8 (1.3-4.6) g/dL Serum Ketones (Negative) 12/03/20 12/03/20 Range/Units 05:50 08:58 WBC (4.0-10.0) 10^3/ uL RBC (4.1-5.3) 10^6/u L Hgb (11.7-16.6) g/dL Hct (42.0-52.0) % MCV (80-94) fL MCH (28.0-34.0) pg MCHC (30.0-36.0) g/dL RDW (12.1-15.1) % Plt Count (130-400) 10^3/c mm MPV (7.4-10.4) fL Neut % (Auto) % Lymph % (Auto) % [place] % (Auto) % Eos % (Auto) % Baso % (Auto) % Neut # (Auto) (1.8-7.7) 10^3/u L Lymph # (Auto) (0.8-4.8) 10^3/u L [place] # (Auto) (0.2-0.9) 10^3/u L Eos # (Auto) (0.0-0.8) 10^3/u L Baso # (Auto) (0.0-0.1) 10^3/u L Nucleated RBC % (a uto) % Nucleated RBCs # /100WBC Sodium (136-145) mmol/L Potassium (3.5-5.1) mmol/L Chloride (98-107) mmol/L Carbon Dioxide (22-29) mmol/L Anion Gap (5-19) BUN (6-20) mg/dL Creatinine (0.7-1.2) mg/dL GFR Calculation (90-130) mL/min Glucose (65-115) mg/dL POC Glucose 384 H (70-110) mg/dL Calculated Osmolal ity (285-295) mOsm/k g Calcium (8.5-10.5) mg/dL Total Bilirubin (0.15-1.2) mg/dL AST (0-40) U/L ALT (0-41) U/L Alkaline Phosphata se (40-130) IU/L Total Protein (6.6-8.7) g/dL Albumin (3.5-5.2) g/dL Globulin (1.3-4.6) g/dL Serum Ketones Negative (Negative) Discharge Plan Discharge Patient Disposition: Home Clinical Impression: Diabetes Condition: Stable Prescriptions: New Humalog U-100 Insulin 100 unit/mL solution 5 unit SUBCUT Q6H PRN (Reason: hyperglycemia) Qty: 10 RF: 0 Changed Lantus U-100 Insulin 100 unit/mL solution 50 unit SUBCUT BID@0900,2200 30 Days Qty: 21 RF: 2 No Action doxycycline hyclate 100 mg capsule 100 mg PO BID Qty: 14 RF: 0 ropinirole 1 mg tablet 1 mg PO BID@, 30 Days Qty: 60 RF: 3 amlodipine 10 mg tablet 10 mg PO DAILY Qty: 30 RF: 3 spironolactone 25 mg tablet 25 mg PO DAILY Qty: 30 RF: 3 carvedilol 6.25 mg tablet 6.25 mg PO BID Qty: 60 RF: 3 aripiprazole 10 mg tablet 10 mg PO .hs Qty: 30 RF: 5 sertraline 100 mg tablet 100 mg PO .am Qty: 30 RF: 5 doxepin 10 mg capsule 10 mg PO DAILY Qty: 30 RF: 5 hydroxyzine HCl 25 mg tablet 25 mg PO TID PRN (Reason: increased Anxiety) Qty: 90 RF: 5 gabapentin 600 mg tablet 600 mg PO TID 30 Days Qty: 90 RF: 3 multivitamin [Multiple Vitamins] Tablet 1 tab PO DAILY@09 30 Days Qty: 30 RF: 1 Discharge Orders: Discharge ED (Routine); Ordered 12/03/20 Ordered By: Dell Harris Discharge Diet: Diabetic Discharge Activity: Increase activity as tolerated Patient Instructions: Opioid Safety Coding Level of Care Code ED Vegetable Farming Supervisor for Taryng Fwd Exam Comprehensive Documented by User: Dell Harris DO 12/03/20 10:42 HPI - General Adult General: Chief complaint: General Medical Stated complaint: Blood Sugar 494 Time Seen by Provider: 12/03/20 05:45 PFSH ED PFSH: Medical History (Updated 12/03/20 @ 09:19 by Dell Harris DO) Acute bullous dermatitis Angioedema Anxiety and depression Atrial fibrillation Closed supracondylar fracture of femur Congestive heart failure COVID-19 Diabetes Erectile dysfunction Hyperlipidemia Hypertension Neuropathy Anika-prosthetic fracture around prosthetic knee Psoriasis Restless leg syndrome Surgical History (Updated 10/26/20 @ 08:12 by Demarcus Rivera MD) H/O knee surgery Hx of cardiac cath S/P total knee arthroplasty Left total knee arthroplasty utilizing the following Padroni implants: A size 6 triathlon posterior stabilized press-fit left femoral component, a size 7 triathlon titanium tibial component, press-fit, a triathlon tibial bearing insert size 7 x 9 mm, and an asymmetric 38 mm x 11 mm patella Family History Father Cancer Lung Mother Cancer Brain Other Diabetes Hypertension Social History Smoking and tobacco status: never smoked Alcohol intake: current Alcohol intake frequency: holidays/special occasions only Household members: friend(s) Housing: Apartment Course Vital Signs: Vital signs: Vital Signs Temperature 98.7 F 12/03/20 05:49 Pulse Rate 73 12/03/20 10:25 Respiratory Rate 16 12/03/20 10:25 Blood Pressure 151/97 12/03/20 10:25 Pulse Oximetry 97 12/03/20 10:25 MDM - General Adult MDM Narrative: Medical decision making narrative: Sugars improved with fluid and insulin. We will increase his Lantus to 50 at at bedtime have him start using Humalog again and follow-up with his primary care doctor to further revamp his diabetic control regiment on Saturday. If he has any worsening or change symptoms she is asked to return to the emergency room. Lab Data: Labs: Lab Results 12/03/20 12/03/20 12/03/20 Range/Units 05:36 05:45 05:45 WBC 3.2 L (4.0-10.0) 10^3/ uL RBC 4.76 (4.1-5.3) 10^6/u L Hgb 13.8 (11.7-16.6) g/dL Hct 43.6 (42.0-52.0) % MCV 91.6 (80-94) fL MCH 29.0 (28.0-34.0) pg MCHC 31.7 (30.0-36.0) g/dL RDW 15.8 H (12.1-15.1) % Plt Count 72 L (130-400) 10^3/c mm MPV 12.3 H (7.4-10.4) fL Neut % (Auto) 60.6 % Lymph % (Auto) 26.4 % [place] % (Auto) 9.3 % Eos % (Auto) 2.8 % Baso % (Auto) 0.9 % Neut # (Auto) 1.95 (1.8-7.7) 10^3/u L Lymph # (Auto) 0.9 (0.8-4.8) 10^3/u L [place] # (Auto) 0.3 (0.2-0.9) 10^3/u L Eos # (Auto) 0.1 (0.0-0.8) 10^3/u L Baso # (Auto) 0.0 (0.0-0.1) 10^3/u L Nucleated RBC % (a uto) 0 % Nucleated RBCs # 0.0 /100WBC Sodium 131 L (136-145) mmol/L Potassium 4.5 (3.5-5.1) mmol/L Chloride 98 (98-107) mmol/L Carbon Dioxide 26 (22-29) mmol/L Anion Gap 11.5 (5-19) BUN 7 (6-20) mg/dL Creatinine 0.6 L (0.7-1.2) mg/dL GFR Calculation 140.4 H (90-130) mL/min Glucose 458 H (65-115) mg/dL POC Glucose 442 H (70-110) mg/dL Calculated Osmolal ity 290 (285-295) mOsm/k g Calcium 7.6 L (8.5-10.5) mg/dL Total Bilirubin 1.4 H (0.15-1.2) mg/dL AST 50 H (0-40) U/L ALT 29 (0-41) U/L Alkaline Phosphata se 258 H (40-130) IU/L Total Protein 6.2 L (6.6-8.7) g/dL Albumin 3.4 L (3.5-5.2) g/dL Globulin 2.8 (1.3-4.6) g/dL Serum Ketones (Negative) 12/03/20 12/03/20 Range/Units 05:50 08:58 WBC (4.0-10.0) 10^3/ uL RBC (4.1-5.3) 10^6/u L Hgb (11.7-16.6) g/dL Hct (42.0-52.0) % MCV (80-94) fL MCH (28.0-34.0) pg MCHC (30.0-36.0) g/dL RDW (12.1-15.1) % Plt Count (130-400) 10^3/c mm MPV (7.4-10.4) fL Neut % (Auto) % Lymph % (Auto) % [place] % (Auto) % Eos % (Auto) % Baso % (Auto) % Neut # (Auto) (1.8-7.7) 10^3/u L Lymph # (Auto) (0.8-4.8) 10^3/u L [place] # (Auto) (0.2-0.9) 10^3/u L Eos # (Auto) (0.0-0.8) 10^3/u L Baso # (Auto) (0.0-0.1) 10^3/u L Nucleated RBC % (a uto) % Nucleated RBCs # /100WBC Sodium (136-145) mmol/L Potassium (3.5-5.1) mmol/L Chloride (98-107) mmol/L Carbon Dioxide (22-29) mmol/L Anion Gap (5-19) BUN (6-20) mg/dL Creatinine (0.7-1.2) mg/dL GFR Calculation (90-130) mL/min Glucose (65-115) mg/dL POC Glucose 384 H (70-110) mg/dL Calculated Osmolal ity (285-295) mOsm/k g Calcium (8.5-10.5) mg/dL Total Bilirubin (0.15-1.2) mg/dL AST (0-40) U/L ALT (0-41) U/L Alkaline Phosphata se (40-130) IU/L Total Protein (6.6-8.7) g/dL Albumin (3.5-5.2) g/dL Globulin (1.3-4.6) g/dL Serum Ketones Negative (Negative) Discharge Plan Discharge Patient Disposition: Home Clinical Impression: Diabetes Condition: Stable Prescriptions: New Humalog U-100 Insulin 100 unit/mL solution 5 unit SUBCUT Q6H PRN (Reason: hyperglycemia) Qty: 10 RF: 0 Changed Lantus U-100 Insulin 100 unit/mL solution 50 unit SUBCUT BID@0900,2200 30 Days Qty: 21 RF: 2 No Action doxycycline hyclate 100 mg capsule 100 mg PO BID Qty: 14 RF: 0 ropinirole 1 mg tablet 1 mg PO BID@, 30 Days Qty: 60 RF: 3 amlodipine 10 mg tablet 10 mg PO DAILY Qty: 30 RF: 3 spironolactone 25 mg tablet 25 mg PO DAILY Qty: 30 RF: 3 carvedilol 6.25 mg tablet 6.25 mg PO BID Qty: 60 RF: 3 aripiprazole 10 mg tablet 10 mg PO .hs Qty: 30 RF: 5 sertraline 100 mg tablet 100 mg PO .am Qty: 30 RF: 5 doxepin 10 mg capsule 10 mg PO DAILY Qty: 30 RF: 5 hydroxyzine HCl 25 mg tablet 25 mg PO TID PRN (Reason: increased Anxiety) Qty: 90 RF: 5 gabapentin 600 mg tablet 600 mg PO TID 30 Days Qty: 90 RF: 3 multivitamin [Multiple Vitamins] Tablet 1 tab PO DAILY@09 30 Days Qty: 30 RF: 1 Discharge Orders: Discharge ED (Routine); Ordered 12/03/20 Ordered By: Dell Harris Discharge Diet: Diabetic Discharge Activity: Increase activity as tolerated Patient Instructions: Opioid Safety Coding Level of Care Code ED Vegetable Farming Supervisor for Chg Fwd Exam Comprehensive
[2020-12-03 05:48] VITALS: BP 142/88; PULSE 101; RESP 10; O2SAT 97
[2020-12-03 05:49] VITALS: TEMP 37.1
[2020-12-03] MEDS: sodium chloride 0.9% 1,000 ML 999 ML IV (05:49)
[2020-12-03 05:51] LABS: Basophils % 0.9 %; Eosinophils # 0.1 10^3/uL (0.0-0.8); Eosinophils % 2.8 %; Hematocrit 43.6 % (42.0-52.0); Hemoglobin 13.8 g/dL (11.7-16.6); Lymphocytes # 0.9 10^3/uL (0.8-4.8); Lymphocytes % 26.4 %; Mean Corpuscular HGB Conc 31.7 g/dL (30.0-36.0); Mean Corpuscular Volume 91.6 fL (80-94); Mean Platelet Volume 12.3 fL (7.4-10.4); Monocytes # 0.3 10^3/uL (0.2-0.9); Monocytes % 9.3 %; Neutrophils # 1.95 10^3/uL (1.8-7.7); Neutrophils % 60.6 %; Nucleated Red Blood Cells % 0 %; Platelet Count 72 10^3/cmm (130-400); Red Blood Count 4.76 10^6/uL (4.1-5.3); Red Cell Distribution Width 15.8 % (12.1-15.1); White Blood Count 3.2 10^3/uL (4.0-10.0)
[2020-12-03 06:08] VITALS: BP 127/109; PULSE 83; RESP 16; O2SAT 96
[2020-12-03 06:23] LABS: Ketone (Acetest) Serum Negative (Negative)
[2020-12-03 06:23] LABS: Alanine Aminotransferase 29 U/L (0-41); Albumin Level 3.4 g/dL (3.5-5.2); Alkaline Phosphatase 258 IU/L (40-130); Aspartate Amino Transferase 50 U/L (0-40); Blood Urea Nitrogen 7 mg/dL (6-20); Calcium 7.6 mg/dL (8.5-10.5); Carbon Dioxide 26 mmol/L (22-29); Chloride 98 mmol/L (98-107); Globulin 2.8 g/dL (1.3-4.6); Glomerular Filtration Rate 140.4 mL/min (90-130); Glucose 458 mg/dL (65-115); Osmolality Calculated 290 mOsm/kg (285-295); Sodium 131 mmol/L (136-145); Total Bilirubin 1.4 mg/dL (0.15-1.2); Total Protein 6.2 g/dL (6.6-8.7)
[2020-12-03 06:24] LABS: Anion Gap 11.5 (5-19); Potassium 4.5 mmol/L (3.5-5.1)
[2020-12-03 06:43] VITALS: BP 146/87; PULSE 82; RESP 16; O2SAT 97
[2020-12-03] MEDS: sodium chloride 0.9% 500 ML IV (07:45)
[2020-12-03 09:01] LABS: Glucose Point of Care 384 mg/dL (70-110)
[2020-12-03 10:25] VITALS: BP 151/97; PULSE 73; RESP 16; O2SAT 97
== END 2020-12-03 10:25 | disposition home or self-care (01) ==
PROVIDERS: Emergency Medicine; Emergency Provider Family Medicine
DX: E11.40 Type 2 diabetes mellitus with diabetic neuropathy, unspecified (principal); I11.0 Hypertensive heart disease with heart failure; I50.9 Heart failure, unspecified; E78.5 Hyperlipidemia, unspecified; Z79.4 Long term (current) use of insulin
CPT/HCPCS: 36416; 80053; 82009; 82962; 85025; 96360; 96361; 99284; J7030; J7040

== ENCOUNTER → 2020-12-05 08:58 | Outpatient (BNVA) | payer MEDICAID, SELFPAY | PROVIDERS: Visit Provider Family Medicine Adult Medicine | DX: D69.6 Thrombocytopenia, unspecified (principal); E11.9 Type 2 diabetes mellitus without complications; I10 Essential (primary) hypertension; I48.20 Chronic atrial fibrillation, unspecified; F10.10 Alcohol abuse, uncomplicated; L03.019 Cellulitis of unspecified finger; L02.519 Cutaneous abscess of unspecified hand | CPT/HCPCS: 83036; 85025 ==

== ENCOUNTER 2021-02-17 08:53 | Inpatient (IN) | payer MEDICAID, SELFPAY ==
[2021-02-17] VITALS (9 sets, daily range): BP systolic 108–135; BP diastolic 70–94; PULSE 83–115; RESP 16–21; TEMP 36.4–36.7; O2SAT 92–120; BMI 39.6
--- NOTE | 2021-02-17 09:18 | XR_ITS ---
WS: [id number] Portable AP upright chest, 02/17/2021 Clinical Data: SOB Comparison: Portable chest, 04/06/2020. Findings: There is opacification in the right lower lobe which may represent atelectasis, pneumonia a nd/or effusion. The left lung is clear. The pulmonary vascularity is not increased. The heart may be enlarged. No pneumothorax is present. Monitor leads are on the chest wall. XR/XR chest 1V portable [id number] Impression: 1. Opacification in the right lower chest which may represent atelectasis, pneu monia and/or effusion. 2. Probable cardiomegaly.
--- NOTE | 2021-02-17 09:18 | ECG_ITS ---
[facility] Test Date: 2021-02-17 Pat Name: Chun Webster Department: Room: Gender: Male Brain Picker: : [phone] Requested By: Adeel Decker Order Number: [id number] Merida MD: Ignacio Agosto M.D. Measurements Intervals [place] Rate: 93 P: NM: QRS: -32 QRSD: 104 T: 102 QT: 361 QTc: 450 Interpretive Statements ATRIAL FIBRILLATION LEFT AXIS DEVIATION [QRS AXIS < -30] INCOMPLETE RIGHT BUNDLE BRANCH BLOCK [90+ ms QRS DURATION, TERMINAL R IN V1/V2, 40+ ms S IN I/aVL/V4/V5/V6] MINIMAL VOLTAGE CRITERIA FOR LVH, CONSIDER NORMAL VARIANT [MEETS CRITERIA IN ONE OF: R(aVL), S(V1), R(V5), R(V5/V6)+S(V1)] MODERATE T-WAVE ABNORMALITY, CONSIDER LATERAL ISCHEMIA [-0.1+ mV T-WAVE IN I/aVL/V5/V6] Compared to ECG 07/03/2020 14:43:54 Left-axis deviation now present Ventricular premature complex(es) no longer present Left anterior fascicular block no longer present T-wave abnormality still present Electronically Signed On 02-17-2021 22:44:42 CDT by Ignacio Agosto M.D. [id number]
--- NOTE | 2021-02-17 09:33 | ECG_ITS ---
[facility] Test Date: 2021-02-17 Pat Name: Chun Webster Department: Room: Gender: Male Instructional Support Assistant: : 1965 Requested By: Jose Stephens Order Number: [id number] [place] MD: Ignacio Agosto M.D. Measurements Intervals [place] Rate: 86 P: RI: QRS: -35 QRSD: 133 T: 133 QT: 426 QTc: 510 Interpretive Statements ATRIAL FIBRILLATION LEFT AXIS DEVIATION [QRS AXIS < -30] INTRAVENTRICULAR CONDUCTION DELAY [130+ ms QRS DURATION] POSSIBLE LEFT VENTRICULAR HYPERTROPHY [VOLTAGE CRITERIA PLUS LAE OR QRS WIDENING] POSSIBLE SEPTAL MYOCARDIAL INFARCTION , OF INDETERMINATE AGE [30 ms Q WAVE IN V1/V2] Compared to ECG 02/17/2021 10:16:09 Intraventricular conduction delay now present Incomplete right bundle-branch block no longer present T-wave abnormality no longer present Possible ischemia no longer present Electronically Signed On 02-17-2021 22:40:29 CDT by Ignacio Agosto M.D. [id number]
--- NOTE | 2021-02-17 09:36 | ED_ITS ---
HPI - SOB/Dyspnea General: Chief Complaint: Shortness of Breath/Dyspnea Stated Complaint: Congestive Heart Failure, sent per Dr Time Seen by Provider: 02/17/21 09:17 Source: patient and family Mode of arrival: ambulatory Limitations: no limitations History of Present Illness: HPI Narrative: Patient with complaints of increasing shortness of breath with activity over the past 2 weeks. Patient states he has had increased fluid retention over the past 2 months. States he has bilateral foot pain and edema over the past 2 weeks. Denies any chest pain. States he does have a possible history of congestive heart failure, psoriasis, atrial fibrillation. He states he has had an increase in his Lasix 2 weeks ago for 40 mg daily to 40 mg twice a day. Patient states that he has not been taking his Eliquis over the past 6 months due to insurance problems. He is not on any other blood thinners. See nursing assessment MD elicited complaint: shortness of breath Pertinent past history: congestive heart failure Onset (ago): week(s) (2) Timing: intermittent Severity: moderate Exacerbating factors: exertion Relieving factors: rest Known history of: congestive heart failure and other (Atrial fibrillation) Associated symptoms: Deny abdominal pain, chest pain, fever(s), nausea or vomiting Treatment prior to arrival: none Review of Systems Const: Reports: change in weight (32 pound weight gain over the past 2 weeks); Denies: fever(s) Eyes: Denies: change in vision ENMT: Denies: throat pain Card: Reports: edema, swelling of feet/ankles and dyspnea on exertion; Denies: chest pain Resp: Denies: dyspnea or wheezing GI: Denies: abdominal pain, nausea or vomiting : Denies: flank pain Musc: Denies: neck pain or back pain Skin/Breast: Reports: lesions (Chronic psoriatic plaques); Denies: pruritus Neuro: Denies: headache(s) or numbness in extremities Psych: Denies: anxiety Max/Lymph: Denies: enlarged lymph nodes PFSH ED PFSH: Medical History Alcohol abuse Anxiety and depression Atrial fibrillation Bronchitis due to 2019 novel coronavirus Closed supracondylar fracture of femur Congestive heart failure COVID-19 Diabetes Erectile dysfunction Hyperlipidemia Hypertension Neuropathy ISSA (obstructive sleep apnea) Osteoarthritis Pleural effusion due to CHF (congestive heart failure) Psoriasis Restless leg syndrome Syncope and collapse Thrombocytopenia Weight gain with edema Surgical History H/O knee surgery Hx of cardiac cath S/P total knee arthroplasty Left total knee arthroplasty utilizing the following [place] implants: A size 6 triathlon posterior stabilized press-fit left femoral component, a size 7 triathlon titanium tibial component, press-fit, a triathlon tibial bearing insert size 7 x 9 mm, and an asymmetric 38 mm x 11 mm patella Family History Father Cancer Lung Mother Cancer Brain Other Diabetes Hypertension Social History Alcohol intake: current Alcohol intake frequency: holidays/special occasions only Household members: friend(s) Housing: Apartment Physical Exam Const: COMMON NORMALS: no acute distress, patient oriented x3, no limitations and well nourished GENERAL APPEARANCE: cooperative NUTRITIONAL APPEARANCE: obese HENMT: COMMON NORMALS: normocephalic and atraumatic HEAD & SCALP: normocephalic and atraumatic FACE & SINUS: normal facial exam Eye: COMMON NORMALS: EOMs intact bilaterally Neck/C-Spine: COMMON NORMALS: full ROM, no lymphadenopathy, supple, no meningeal signs and no JVD GENERAL: Yes normal visual inspection Lymph: LYMPHATIC: no lymphadenopathy noted Chest: COMMONS NORMALS: normal inspection of the chest and normal palpation of entire chest wall CHEST: No Ecchymosis present and No rash Resp: COMMON NORMALS: normal respiratory effort, No retractions and clear to auscultation bilaterally EFFORT & INSPECTION: No respiratory distress AUSCULTATION: clear to auscultation bilaterally Cardio: COMMON NORMALS: no JVD, regular rate and Peripheral pulses 2+ throughout JUGULAR VENOUS DISTENTION: no JVD RATE: regular rate RHYTHM: abnormal rhythm and other (Irregular irregular rhythm consistent with atrial fibrillation) PERIPHERAL PULSES: Peripheral pulses 2+ throughout GI: COMMON NORMALS: Normal to inspection, nondistended, normoactive bowel sounds present and non-tender : COMMON NORMALS: Yes no CVA tenderness BLADDER/KIDNEY EXAM: Yes no CVA tenderness Back/Pelvis: COMMON NORMALS: no CVA tenderness Extremity: COMMON NORMALS: full ROM, capillary refill normal and no calf tenderness NARRATIVE EXTREMITY EXAM: 2+ pedal edema in the lower extremities bilaterally Neuro: COMMON NORMALS: patient oriented x3, CN's II-XII intact bilaterally, no focal motor deficits and no sensory deficits noted MENINGEAL SIGNS: Yes no meningeal signs Psych: COMMON NORMALS: mental status grossly normal and Normal thought process present THOUGHT PROCESS: Normal thought process present Skin: COMMON NORMALS: no wounds NARRATIVE SKIN EXAM: Diffuse mild psoriatic plaques. Course Vital Signs: Vital signs: Vital Signs Temperature 97.7 F 02/17/21 09:02 Pulse Rate 105 H 02/17/21 11:47 Respiratory Rate 19 H 02/17/21 11:47 Blood Pressure 108/82 02/17/21 11:47 Pulse Oximetry 94 02/17/21 11:47 MDM - SOB/Dyspnea MDM Narrative: Medical decision making narrative: See nursing assessment. Patient has not been vaccinated for Covid. 1255: D/w Dr. Lang, hospitalist. Will admit to the hospital for observation for treatment of congestive heart failure exacerbation. Lab Data: Attestation: I reviewed the patient's lab results. Labs: Lab Results 02/17/21 02/17/21 02/17/21 09:46 09:46 09:46 WBC 3.8 10^3/uL L 10^ 3/uL (4.0-10.0) RBC 4.91 10^6/uL 10^6 /uL (4.1-5.3) Hgb 13.7 g/dL g/dL (11.7-16.6) Hct 44.6 % % (42.0-52.0) MCV 90.8 fl fl (80-94) MCH 27.9 pg L pg (28.0-34.0) MCHC 30.7 g/dL g/dL (30.0-36.0) RDW 16.1 % H % (12.1-15.1) Plt Count 108 10^3/cmm L 10 ^3/cmm (130-400) MPV 12.2 fL H fL (7.4-10.4) Neut % (Auto) 65.3 % % Lymph % (Auto) 21.1 % % [place] % (Auto) 9.3 % % Eos % (Auto) 2.7 % % Baso % (Auto) 1.3 % % Neut # (Auto) 2.45 10^3/uL 10^3 /uL (1.8-7.7) Lymph # (Auto) 0.8 10^3/uL 10^3/ uL (0.8-4.8) [place] # (Auto) 0.4 10^3/uL 10^3/ uL (0.2-0.9) Eos # (Auto) 0.1 10^3/uL 10^3/ uL (0.0-0.8) Baso # (Auto) 0.1 10^3/uL 10^3/ uL (0.0-0.1) Nucleated RBC % (a uto) 0 % % Nucleated RBCs # 0.0 /100WBC /100W BC APTT Sodium 136 mmol/L mmol/L (136-145) Potassium 4.3 mmol/L mmol/L (3.5-5.1) Chloride 99 mmol/L mmol/L (98-107) Carbon Dioxide 29 mmol/L mmol/L (22-29) Anion Gap 12.3 (5-19) BUN 17 mg/dL mg/dL (6-20) Creatinine 0.9 mg/dL mg/dL (0.7-1.2) GFR Calculation 87.9 mL/min L mL/ min (90-130) Glucose 239 mg/dL H mg/dL (65-115) Calculated Osmolal ity 291 mOsm/kg mOsm/ kg (285-295) Calcium 8.7 mg/dL mg/dL (8.5-10.5) Total Bilirubin 1.1 mg/dL mg/dL (0.15-1.2) AST 35 U/L U/L (0-40) ALT 25 U/L U/L (0-41) Alkaline Phosphata se 251 IU/L H IU/L (40-130) Troponin T Baselin e 15 ng/L ng/L (0-15) Troponin T 120 Min [place] Delta Troponin T NT-Pro-B Natriuret Pep 738 pg/mL H pg/mL (0-125) Total Protein 7.0 g/dL g/dL (6.6-8.7) Albumin 4.1 g/dL g/dL (3.5-5.2) Globulin 2.9 g/dL g/dL (1.3-4.6) SARS-CoV-2 Ag (Rap id) 02/17/21 02/17/21 02/17/21 09:46 10:07 11:45 WBC RBC Hgb Hct MCV MCH MCHC RDW Plt Count MPV Neut % (Auto) Lymph % (Auto) [place] % (Auto) Eos % (Auto) Baso % (Auto) Neut # (Auto) Lymph # (Auto) [place] # (Auto) Eos # (Auto) Baso # (Auto) Nucleated RBC % (a uto) Nucleated RBCs # APTT 33.6 SECONDS SECO NDS (23.9-36.7) Sodium Potassium Chloride Carbon Dioxide Anion Gap BUN Creatinine GFR Calculation Glucose Calculated Osmolal ity Calcium Total Bilirubin AST ALT Alkaline Phosphata se Troponin T Baselin e Troponin T 120 Min [place] 14.37 ng/L ng/L (0-15) Delta Troponin T -0.63 ABS# L ABS# (0-10) NT-Pro-B Natriuret Pep Total Protein Albumin Globulin SARS-CoV-2 Ag (Rap id) Negative (Negative) Imaging Data^: CXR: Attestation: I personally reviewed and interpreted this imaging study as follows: My impression: Mild cardiomegaly, mild pleural effusion on the right, minimal pulmonary congestion. Radiologist's impression: Ordering Provider/Ordering MD: Adeel Decker Date of Service: 02/17/21 Procedure(s): XR chest 1V portable [id number] Accession Number(s): [id number] Report Number: [id number] WS: [id number] Portable AP upright chest, 02/17/2021 Clinical Data: SOB Comparison: Portable chest, 04/06/2020. Findings: There is opacification in the right lower lobe which may represent atelectasis, pneumonia and/or effusion. The left lung is clear. The pulmonary vascularity is not increased. The heart may be enlarged. No pneumothorax is present. Monitor leads are on the chest wall. XR/XR chest 1V portable [id number] Impression: 1. Opacification in the right lower chest which may represent atelectasis, pneumonia and/or effusion. 2. Probable cardiomegaly. Dictated By:Louisa De Jesus MDSigned By:Louisa De Jesus MDSigned Date/Time:02/17/21 1021 EKG Data^: EKG 1: Attestation: I personally reviewed and interpreted this EKG as follows: EKG Interpretation Date: 02/17/21 EKG interpretation time: 10:23 Prior EKG tracings: not available for review Ischemic changes: non-specific ST-T wave changes Interpretation: EKG shows atrial fibrillation rate controlled with heart rate of 93. Left axis, left IVCD, nonspecific ST-T changes. Normal QT interval. EKG 2: Attestation: I personally reviewed and interpreted this EKG as follows: EKG Interpretation Date: 02/17/21 EKG interpretation time: 12:50 Prior EKG tracings: available for review Ischemic changes: non-specific ST-T wave changes Interpretation: EKG shows atrial fibrillation with left axis. Heart rate 86. Nonspecific ST-T changes. No changes from previous EKG except for rate. Normal QT interval. Left IVCD. Critical Care Time Critical Care Time: Critical Care Time: Yes Total Critical Care Time: 40 Attestation: See orders, congestive heart failure requiring IV Lasix. Discharge Plan Discharge Clinical Impression: Acute on chronic diastolic CHF (congestive heart failure) Atrial fibrillation Qualifiers: Atrial fibrillation type: unspecified chronic Qualified Code(s): I48.20 - Chronic atrial fibrillation, unspecified Condition: Stable Prescriptions: No Action spironolactone 25 mg tablet 50 mg PO DAILY Qty: 60 RF: 5 amlodipine 10 mg tablet 10 mg PO DAILY Qty: 30 RF: 5 carvedilol 6.25 mg tablet 6.25 mg PO BID Qty: 60 RF: 5 multivitamin [Multiple Vitamins] Tablet 1 tab PO DAILY@09 Qty: 100 RF: 3 ropinirole 1 mg tablet 1 mg PO BID@,22 30 Days Qty: 60 RF: 5 furosemide 40 mg tablet 40 mg PO DAILY Qty: 30 RF: 3 potassium chloride 20 mEq tablet extended release 20 meq PO DAILY Qty: 30 RF: 3 doxycycline hyclate 100 mg capsule 100 mg PO BID Qty: 30 RF: 0 albuterol sulfate 90 mcg/actuation HFA aerosol inhaler 2 puff inhalation Q4H PRN (Reason: shortness of breath or wheezing) Qty: 8.5 RF: 3 aripiprazole 10 mg tablet 10 mg PO .hs Qty: 30 RF: 5 sertraline 100 mg tablet 100 mg PO .am Qty: 30 RF: 5 doxepin 10 mg capsule 10 mg PO DAILY Qty: 30 RF: 5 hydroxyzine HCl 25 mg tablet 25 mg PO TID PRN (Reason: increased Anxiety) Qty: 90 RF: 5 gabapentin 600 mg tablet 600 mg PO TID 30 Days Qty: 90 RF: 3 albuterol sulfate 2.5 mg /3 mL (0.083 %) solution for nebulization 2.5 mg inhalation Q4H PRN (Reason: shortness of breath or wheezing) Qty: 90 RF: 0 (DME) CPAP machine & supplies See Rx Instructions .Route .MEDSUPPLY Qty: 1 RF: 5 Lantus U-100 Insulin 100 unit/mL solution 50 unit SUBCUT BID@0900,2200 30 Days Qty: 21 RF: 2 Humalog U-100 Insulin 100 unit/mL solution 5 unit SUBCUT Q6H PRN (Reason: hyperglycemia) Qty: 10 RF: 0 Referrals: Demarcus Rivera MD [Primary Care Provider] - Coding Level of Care Code ED Commercial Credit Specialist for Chg Fwd Exam Comprehensive
[2021-02-17 10:00] LABS: Basophils # 0.1 10^3/uL (0.0-0.1); Basophils % 1.3 %; Eosinophils # 0.1 10^3/uL (0.0-0.8); Eosinophils % 2.7 %; Hematocrit 44.6 % (42.0-52.0); Hemoglobin 13.7 g/dL (11.7-16.6); Lymphocytes # 0.8 10^3/uL (0.8-4.8); Lymphocytes % 21.1 %; Mean Corpuscular HGB Conc 30.7 g/dL (30.0-36.0); Mean Corpuscular Hemoglobin 27.9 pg (28.0-34.0); Mean Corpuscular Volume 90.8 fl (80-94); Mean Platelet Volume 12.2 fL (7.4-10.4); Monocytes # 0.4 10^3/uL (0.2-0.9); Monocytes % 9.3 %; Neutrophils # 2.45 10^3/uL (1.8-7.7); Neutrophils % 65.3 %; Nucleated Red Blood Cells % 0 %; Platelet Count 108 10^3/cmm (130-400); Red Blood Count 4.91 10^6/uL (4.1-5.3); Red Cell Distribution Width 16.1 % (12.1-15.1); White Blood Count 3.8 10^3/uL (4.0-10.0)
[2021-02-17] MEDS: aspirin 81 mg Chew Tablet 324 MG PO (10:17)
[2021-02-17] MEDS: FUROsemide 10 mg/mL SDV 4mL 40 MG IVP (10:17)
[2021-02-17 10:27] LABS: Troponin(5th) Baseline 15 ng/L (0-15)
[2021-02-17 10:30] LABS: Partial Thromboplastin Time 33.6 SECONDS (23.9-36.7)
[2021-02-17 10:37] LABS: SARS Covid-2 Antigen Negative (Negative)
[2021-02-17 10:37] LABS: Alanine Aminotransferase 25 U/L (0-41); Albumin Level 4.1 g/dL (3.5-5.2); Alkaline Phosphatase 251 IU/L (40-130); Anion Gap 12.3 (5-19); Aspartate Amino Transferase 35 U/L (0-40); Blood Urea Nitrogen 17 mg/dL (6-20); Calcium 8.7 mg/dL (8.5-10.5); Carbon Dioxide 29 mmol/L (22-29); Chloride 99 mmol/L (98-107); Globulin 2.9 g/dL (1.3-4.6); Glomerular Filtration Rate 87.9 mL/min (90-130); Glucose 239 mg/dL (65-115); NT Pro B Type Natriuretic Pept 738 pg/mL (0-125); Osmolality Calculated 291 mOsm/kg (285-295); Potassium 4.3 mmol/L (3.5-5.1); Sodium 136 mmol/L (136-145); Total Bilirubin 1.1 mg/dL (0.15-1.2)
[2021-02-17 12:27] LABS: Troponin 5 2HR 14.37 ng/L (0-15)
[2021-02-17 12:37] LABS: Troponin 5 2HR Delta -0.63 ABS# (0-10)
--- NOTE | 2021-02-17 13:43 | PM.HP ---
Providers/Chief Complaint Primary Care Provider: Demarcus Rivera MD Chief Complaint: Congestive Heart Failure, sent per History of Present Illness Chun Webster Jr is a 55 year old male who carries history of psoriasis, preserved ejection fraction heart failure, sleep apnea, diabetes, was sent in from his PCP clinic because of worsening shortness of breath orthopnea and PND. Patient is stating that for last 1 year he has not used his CPAP he is in the process of getting it approved again via insurance(his ex- returned his CPAP after divorce). Patient is endorsing worsening shortness of breath on minimal activities his symptoms, he can hardly take 20-30 steps without getting short of breath. He has not experienced any chest pain, nausea, vomiting. He tries to eat low-salt cardiac healthy diet. He has not missed any medications other than Eliquis. He has not taken Eliquis for last 6 months because of insurance coverage. He can get insurance through his employer next year in April. He has been compliant with his rest of the medication. His PCP did increase his Lasix dose to 40 mg twice a day however his symptoms did not improve. He has gained 32 pounds in last 2 weeks. He is experiencing orthopnea and PND. He is not vaccinated for COVID-19 and is adamant that he will not get anything which is mandated by the government. Diagnosis in the ER revealed CHF exacerbation he received IV diuretics, he was saturating well on room air I discontinued his 2 L nasal cannula, clinically looks bloated, A. fib heart rate controlled normal blood pressure saturating 96% on room air, high blood sugar, bnp, Review of Systems Const: Reports: body aches and fatigue Eyes: Denies: change in vision ENMT: Denies: throat pain Card: Reports: irregular heart rhythm, swelling of feet/ankles, dyspnea on exertion and orthopnea Resp: Reports: dyspnea GI: Denies: abdominal pain : Denies: flank pain Musc: Denies: neck pain Skin/Breast: Reports: rash, erythema, skin tenderness and changes in skin color Neuro: Denies: headache(s) Psych: Denies: anxiety Endo: Denies: polyuria Max/Lymph: Denies: easy bruising All/Imm: Denies: urticaria Medications/Allergies Home Medications Medication Instructions Recorded Confirmed Last Taken Type hydroxyzine HCl 25 mg tablet 25 mg PO TID PRN #90 tab 10/24/20 02/17/21 Unknown Rx gabapentin 600 mg tablet 600 mg PO TID 30 Days #90 tab 11/15/20 02/17/21 02/17/21 Rx insulin lispro [Humalog U-100 5 unit SUBCUT Q6H PRN #10 ml 12/03/20 02/17/21 Unknown Rx Insulin] amlodipine 10 mg tablet 10 mg PO DAILY #30 tab 12/05/20 02/17/21 02/17/21 Rx carvedilol 6.25 mg tablet 6.25 mg PO BID #60 tab 12/05/20 02/17/21 02/17/21 Rx ropinirole 1 mg tablet 1 mg PO BID@ 30 Days #60 tab 12/05/20 02/17/21 02/17/21 Rx albuterol sulfate 90 mcg/actuation 2 puff INHALATION Q4H PRN #8.5 g 01/16/21 02/17/21 Unknown Rx aerosol inhaler albuterol sulfate 2.5 mg INHALATION Q4H PRN #90 ml 01/17/21 02/17/21 Unknown Rx CPAP machine & supplies #1 ea 01/20/21 02/17/21 Unknown Rx Lantus U-100 Insulin 45 unit SUBCUT BID@0900,2200 02/17/21 02/17/21 02/17/21 History aripiprazole 10 mg PO BEDTIME 02/17/21 02/17/21 02/16/21 History furosemide 40 mg PO BID 02/17/21 02/17/21 02/17/21 History potassium chloride 20 meq PO DAILY@0900 02/17/21 02/17/21 02/17/21 History spironolactone 25 mg tablet 50 mg PO DAILY #60 tab 02/17/21 02/17/21 02/17/21 Rx Allergies Allergy/AdvReac Type Severity Reaction Status Date / Time trazodone Allergy Unknown Verified 02/17/21 08:17 PFSH Acute PFSH: Medical History Alcohol abuse Anxiety and depression Atrial fibrillation Bronchitis due to 2019 novel coronavirus Closed supracondylar fracture of femur Congestive heart failure COVID-19 Diabetes Erectile dysfunction Hyperlipidemia Hypertension Neuropathy ISSA (obstructive sleep apnea) Osteoarthritis Pleural effusion due to CHF (congestive heart failure) Psoriasis Restless leg syndrome Syncope and collapse Thrombocytopenia Weight gain with edema Surgical History H/O knee surgery Hx of cardiac cath S/P total knee arthroplasty Left total knee arthroplasty utilizing the following [place] implants: A size 6 triathlon posterior stabilized press-fit left femoral component, a size 7 triathlon titanium tibial component, press-fit, a triathlon tibial bearing insert size 7 x 9 mm, and an asymmetric 38 mm x 11 mm patella Family History Father Cancer Lung Mother Cancer Brain Other Diabetes Hypertension Social History Alcohol intake: current Alcohol intake frequency: holidays/special occasions only Household members: friend(s) Housing: Apartment Vitals/I&O/Wt Last Vital Signs Temp 97.7 F 02/17/21 09:02 Pulse 105 H 02/17/21 11:47 Resp 19 H 02/17/21 11:47 BP 108/82 02/17/21 11:47 Pulse Ox 94 02/17/21 11:47 Weight last 48 hrs Weight 143.789 kg Physical Exam Narrative: EXAM NARRATIVE: Appears stated age Saturating well on room air Saturating 96% on room air S1, S2 variable with signs of heart failure Bilateral lower extremity 1+ pitting edema Psoriasis Active flare of psoriasis noted Abdomen distended visceral obesity nontender no signs of acute abdomen EOMI, PERRLA No focal neuro exam findings Appropriate mood and affect Data : 02/17/21 09:46 02/17/21 09:46 A&P Assessment and plan (1) Weight gain with edema: Status: Acute (2) Pleural effusion due to CHF (congestive heart failure): Status: Acute (3) ISSA (obstructive sleep apnea): Status: Acute (4) Acute on chronic diastolic CHF (congestive heart failure): Status: Acute (5) Acute dyspnea: Status: Acute (6) Anxiety and depression: Status: Acute (7) Psoriasis: Status: Acute Additional A&P Information Preserved ejection fraction acute exacerbation Most likely secondary to untreated sleep apnea He has not used his CPAP for last 1 year he is in the process of getting his CPAP improved Tries to eat healthy, consistent with his medications, Does not smoke or drink alcohol We will repeat echo in the morning Treat with IV Bumex 2 mg daily I have discontinued his nasal cannula supplemental oxygen, he saturating well on room air 96% Pleural effusion: Anticipating improvement with diuresis Obstructive sleep apnea: Would use auto CPAP at night Active flare of psoriasis: We will give him steroid regimen for now he does have outpatient follow-up with [facility] Chronic thrombocytopenia: No active bleeding A. fib without RVR: Heart rate controlled, I will continue Eliquis, Full code Cardiac consistent carb diet Type 2 diabetes: Hyperglycemia: Check A1c level, sliding scale Eliquis will suffice DVT prophylaxis Attestations Medical Necessity Statement*: Discharge within 48 hours anticipated Time Spent in Patient Care: Greater than 35 minutes Coding Level of Care Code Acute Public Opinion Survey Taker for Chg Fwd Diagnoses Weight gain with edema R63.5; R60.9 Pleural effusion due to CHF (congestive heart failure) I50.9 ISSA (obstructive sleep apnea) G47.33 Acute on chronic diastolic CHF (congestive heart failure) I50.33 Acute dyspnea R06.00 Anxiety and depression F41.9; F32.9 Psoriasis L40.9
[2021-02-17 14:20] LABS: Procalcitonin 0.08 ng/mL (0-0.5)
[2021-02-17 14:21] LABS: Estmated Average Glucose 249; Hemoglobin A1C 10.3 % (4.0-6.0)
[2021-02-17 17:00] LABS: Troponin 5 6HR 15.77 ng/L (0-15); Troponin 5 6HR Delta 0.77 ng/L (0-12)
[2021-02-17] MEDS: carvedilol 6.25 mg Tablet PO (17:53)
[2021-02-17] MEDS: apixaban 5 mg Tablet PO (17:53)
[2021-02-17 18:13] LABS: Glucose Point of Care 203 mg/dL (70-110)
[2021-02-17] MEDS: insulin lispro 100 unit/1 mL SUBCUT ×2 (18:15→21:16)
[2021-02-17 20:29] LABS: Glucose Point of Care 192 mg/dL (70-110)
[2021-02-17] MEDS: insulin glargine 100 units/1 mL 45 UNIT SUBCUT (21:16)
[2021-02-17] MEDS: ropinirole 1 mg Tablet PO (21:16)
[2021-02-18] VITALS (10 sets, daily range): BP systolic 103–154; BP diastolic 59–90; PULSE 77–117; RESP 16–19; TEMP 36.3–36.9; O2SAT 91–97
[2021-02-18] MEDS: levoFLOXacin 750 mg Tablet PO (05:31)
[2021-02-18 06:32] LABS: Glucose Point of Care 187 mg/dL (70-110)
[2021-02-18 06:48] LABS: Basophils % 0.6 %; Eosinophils % 0.3 %; Hematocrit 42.4 % (42.0-52.0); Hemoglobin 13.2 g/dL (11.7-16.6); Lymphocytes # 0.6 10^3/uL (0.8-4.8); Lymphocytes % 17.2 %; Mean Corpuscular HGB Conc 31.1 g/dL (30.0-36.0); Mean Corpuscular Hemoglobin 27.8 pg (28.0-34.0); Mean Corpuscular Volume 89.3 fl (80-94); Mean Platelet Volume 12.6 fL (7.4-10.4); Monocytes # 0.2 10^3/uL (0.2-0.9); Neutrophils # 2.76 10^3/uL (1.8-7.7); Neutrophils % 76.6 %; Nucleated Red Blood Cells % 0 %; Platelet Count 100 10^3/cmm (130-400); Red Blood Count 4.75 10^6/uL (4.1-5.3); Red Cell Distribution Width 15.8 % (12.1-15.1); White Blood Count 3.6 10^3/uL (4.0-10.0)
[2021-02-18 07:14] LABS: Anion Gap 13.3 (5-19); Blood Urea Nitrogen 18 mg/dL (6-20); Calcium 8.8 mg/dL (8.5-10.5); Carbon Dioxide 28 mmol/L (22-29); Chloride 100 mmol/L (98-107); Glomerular Filtration Rate 117.5 mL/min (90-130); Glucose 212 mg/dL (65-115); Osmolality Calculated 292 mOsm/kg (285-295); Potassium 4.3 mmol/L (3.5-5.1); Sodium 137 mmol/L (136-145)
[2021-02-18] MEDS: insulin lispro 100 unit/1 mL SUBCUT ×4 (08:43→20:58)
[2021-02-18] MEDS: potassium chloride ER 20 mEq Tablet PO (09:39)
[2021-02-18] MEDS: apixaban 5 mg Tablet PO ×2 (09:39→17:26)
[2021-02-18] MEDS: ropinirole 1 mg Tablet PO ×2 (09:39→21:00)
[2021-02-18] MEDS: carvedilol 6.25 mg Tablet PO ×2 (09:40→17:26)
[2021-02-18] MEDS: gabapentin 300 mg Capsule 600 MG PO ×3 (09:41→20:55)
[2021-02-18] MEDS: spironolactone 25 mg Tablet 50 MG PO (09:41)
[2021-02-18] MEDS: bumetanide 0.25 mg/mL SDV 10 mL 2 MG IVP (09:42)
[2021-02-18] MEDS: insulin glargine 100 units/1 mL 45 UNIT SUBCUT ×2 (09:48→21:00)
--- NOTE | 2021-02-18 10:33 | PM.PN ---
Subjective Subjective: Interval history: Patient put out 1 L of urine with 40 mg of Lasix that was given in the ER Today he will get Bumex, he is feeling slightly better however still endorsing fatigue and lethargy, did use CPAP overnight, requested community case manager Johanny to touch base with home company to arrange CPAP before discharge Psoriasis flareup improving with steroids Vitals/I&O/Wt Last Vital Signs Temp 98.4 F 02/18/21 08:00 Pulse 117 H 02/18/21 08:00 Resp 16 02/18/21 08:00 BP 129/83 02/18/21 08:00 Pulse Ox 91 02/18/21 08:00 02/17/21 02/18/21 02/18/21 22:59 06:59 14:59 Intake Total 240 / 240 60 / 300 360 / 360 Output Total 575 / 575 450 / 1025 Balance -335 / -335 -390 / -725 360 / 360 Weight last 48 hrs Weight 143.789 kg Physical Exam Narrative: EXAM NARRATIVE: Patient resting comfortably in his bed Endorsing fatigue and lethargy Saturating well on room air S1, S2 no murmur Congestive heart failure exacerbation Bilateral extremity edema Psoriasis flareup improving Abdomen soft Pleasant mood EOMI, PERRLA Nonfocal neuro exam Data : 02/18/21 04:41 02/18/21 04:41 A&P Assessment and plan (1) Weight gain with edema: Status: Acute (2) Acute on chronic diastolic CHF (congestive heart failure): Status: Acute (3) ISSA (obstructive sleep apnea): Status: Acute (4) Thrombocytopenia: Status: Acute (5) Anxiety and depression: Status: Acute (6) Psoriasis: Status: Acute (7) Restless leg syndrome: Status: Acute (8) Mood disorder: Status: Acute (9) Atrial fibrillation: Status: Acute Qualifiers: Atrial fibrillation type: unspecified chronic Qualified Code(s): I48.20 - Chronic atrial fibrillation, unspecified Additional A&P Information Preserved ejection fraction heart failure exacerbation Most likely etiology is underlying untreated sleep apnea Today he will get Bumex 2 mg IV push, strict ins and outs In case of clinical improvement he can be discharged tomorrow Did well with CPAP overnight No active chest pain, troponin not significantly high EKG without ischemic or infarctive changes Echo is pending today A. fib wit rvr He has history of A. fib I would resume his home medications and if heart rate 60s consistently high we will give Cardizem IV push Continue anticoagulation Eliquis 5 mg twice daily Restless leg syndrome Continue gabapentin Psoriasis: Responding well to steroids Hyperglycemia for type 2 diabetes currently on Lantus to 45 units twice daily Full code DVT prophylaxis Eliquis Consistent carb cardiac diet Attestations Medical Necessity Statement*: Plan to discharge him on Saturday Time Spent in Patient Care: 16 - 35 minutes Coding Level of Care Code Acute Syrup Mixer Assistant for Chg Fwd Diagnoses Weight gain with edema R63.5; R60.9 Acute on chronic diastolic CHF (congestive heart failure) I50.33 ISSA (obstructive sleep apnea) G47.33 Thrombocytopenia D69.6 Anxiety and depression F41.9; F32.9 Psoriasis L40.9 Restless leg syndrome G25.81 Mood disorder F39 Atrial fibrillation I48.20 Atrial fibrillation type: unspecified chronic
[2021-02-18] MEDS: metOLazone 5 MG Tablet PO (10:51)
[2021-02-18 11:07] LABS: Glucose Point of Care 247 mg/dL (70-110)
[2021-02-18 16:53] LABS: Glucose Point of Care 358 mg/dL (70-110)
--- NOTE | 2021-02-18 17:28 | USCV_ITS ---
Chun Webster Age: 55 Gender: M : 1965 Exam Date: 02/18/2021 09:46 Ordering Phys: Colin Lang MD Technologist: [place] [facility] [place]: BILAT EDEMA HISTORY: Lower extremity swelling. PROCEDURES: The venous duplex Doppler examination of both lower extremities was performed in the standard fashion. The following venous structures were evaluated: common femoral vein, profunda vein, proximal portion of the greater saphenous vein, superficial femoral vein, and the popliteal vein. In addition, the posterior tibial and peroneal trunk were evaluated. Bilaterally, the common femoral, superficial femoral, profunda femoral, popliteal, posterior tibial, greater saphenous veins, and the peroneal trunk were identified and interrogated in the standard fashion. These veins were found to be easily compressible with spontaneous blood flow. No evidence of insufficiency or thrombus noted. FINDINGS: Normal 2-D Doppler and augmentation and compressibility throughout the lower extremity venous structures. Additional imaging through the proximal calf veins also reveals no thrombus. Limited evaluation of the greater saphenous vein is patent with no thrombus.. CONCLUSIONS No evidence of DVT in the above-mentioned identifiable veins. Dr Chai Rodriguez MD [facility] (Electronically Signed) Final Date: 18 February 2021 16:47 S
--- NOTE | 2021-02-18 17:28 | USCV_ITS ---
Chun Webster Age: 55 Gender: M : 1965 Exam Date: 02/18/2021 09:59 Ordering Phys: Colin Lang MD Technologist: Exam Location: [facility] – [place] Indication: CHF BP: 117 / 70 HR: 100 Rhythm: Sinus Technical Quality: Adequate MEASUREMENTS (Male / Female) Normal Values 2D ECHO LV Diastolic Diameter PLAX 5.7 cm 4.2 - 5.9 / 3.9 - 5.3 cm LV Systolic Diameter PLAX 4.8 cm IVS Diastolic Thickness 1.5 cm 0.6 - 1.0 / 0.6 - 0.9 cm IVS Systolic Thickness 1.7 cm LVPW Diastolic Thickness 1.2 cm 0.6 - 1.0 / 0.6 - 0.9 cm LVPW Systolic Thickness 1.5 cm LVOT Diameter 2.7 cm LV Ejection Fraction 2D Teich 31.0 % LV Ejection Fraction MOD 2C 21.3 % LV Ejection Fraction 2C AL 21.4 % LA Diameter 5.3 cm LA Width 5.5 cm LA Height 7.2 cm RA Width 5.1 cm RA Height 6.9 cm M-MODE LV Diastolic Diameter MM 6.9 cm 4.2 - 5.9 / 3.9 - 5.3 cm LV Systolic Diameter MM 5.4 cm LV Ejection Fraction MM Teich 43.8 % IVS Diastolic Thickness MM 1.3 cm 0.6 - 1.0 / 0.6 - 0.9 cm IVS Systolic Thickness MM 2.2 cm LVPW Diastolic Thickness MM 1.3 cm 0.6 - 1.0 / 0.6 - 0.9 cm LVPW Systolic Thickness MM 1.9 cm RV Diastolic Diameter MM 2.3 cm MV E Point Septal Separation 1.5 cm DOPPLER AV Peak Velocity 105.0 cm/s LVOT Peak Velocity 63.7 cm/s AV Area Cont Eq vti 2.5 cm squared AV Area Cont Eq pk 3.4 cm squared MV Area PHT 5.0 cm squared Mitral E to A Ratio 1.7 MV E' Velocity 46.5 cm/s Mitral E to MV E' Ratio 8.8 Mitral E to LV E' Lateral Ratio 6.3 Mitral E to LV E' Septal Ratio 14.8 TR Peak Velocity 170.3 cm/s TR Peak Gradient 11.6 mmHg TV Peak E Velocity 100.0 cm/s Right Atrial Pressure 3.0 mmHg Pulmonary Artery Systolic Pressu 14.6 mmHg FINDINGS Left Ventricle Severe diffuse hypokinesia of the left ventricle with ejection fraction of 25 to 30%(visual). Mildly dilated left ventricle Right Ventricle Normal right ventricular size and systolic function. Right Atrium Mildly increased right atrial size. Left Atrium Mildly increased left atrial size. Mitral Valve Mild-moderate eccentric mitral valve regurgitation. Mild prolapse of the anterior mitral leaflet Aortic Valve No gross abnormalities noted Tricuspid Valve Trace to mild tricuspid valve regurgitation. Pulmonic Valve Structurally normal pulmonic valve. Pericardium Normal pericardium without effusion. Aorta Normal ascending aorta dimension. CONCLUSIONS Mildly dilated left ventricle with ejection fraction of around 25 to 30%. Diffuse hypokinesia of the left ventricle. Mild biatrial enlargement. Mild prolapse of the anterior mitral leaflet. Mild to moderate eccentric mitral regurgitation. Trace to mild tricuspid regurgitation. Normal pulmonary artery peak systolic pressure. There is no pericardial effusion. There are no intracardiac masses. Compared to the study from 05/28/2019, there is significant drop in the LV ejection fraction-55% to 25-30% [id number] Dr Chai Rodriguez MD [facility] (Electronically Signed) Final Date: 18 February 2021 16:56 S
[2021-02-18 21:39] LABS: Glucose Point of Care 351 mg/dL (70-110)
[2021-02-19] VITALS (8 sets, daily range): BP systolic 126–144; BP diastolic 60–92; PULSE 87–113; RESP 16–21; TEMP 36.3–37; O2SAT 93–99
[2021-02-19 05:32] LABS: Anion Gap 12.2 (5-19); Blood Urea Nitrogen 19 mg/dL (6-20); Calcium 8.7 mg/dL (8.5-10.5); Carbon Dioxide 30 mmol/L (22-29); Chloride 95 mmol/L (98-107); Glomerular Filtration Rate 87.9 mL/min (90-130); Glucose 298 mg/dL (65-115); Osmolality Calculated 289 mOsm/kg (285-295); Potassium 4.2 mmol/L (3.5-5.1); Sodium 133 mmol/L (136-145)
[2021-02-19 06:41] LABS: Glucose Point of Care 254 mg/dL (70-110)
[2021-02-19] MEDS: insulin lispro 100 unit/1 mL SUBCUT ×3 (08:02→21:03)
[2021-02-19] MEDS: potassium chloride ER 20 mEq Tablet PO (08:04)
[2021-02-19] MEDS: carvedilol 6.25 mg Tablet PO ×2 (08:04→18:00)
[2021-02-19] MEDS: ropinirole 1 mg Tablet PO ×2 (08:05→21:19)
[2021-02-19] MEDS: apixaban 5 mg Tablet PO ×2 (08:05→18:01)
[2021-02-19] MEDS: gabapentin 300 mg Capsule 600 MG PO ×3 (08:05→21:01)
[2021-02-19] MEDS: spironolactone 25 mg Tablet 50 MG PO (08:05)
[2021-02-19] MEDS: metOLazone 5 MG Tablet PO (08:05)
[2021-02-19] MEDS: bumetanide 0.25 mg/mL SDV 10 mL 2 MG IVP (08:06)
[2021-02-19] MEDS: insulin glargine 100 units/1 mL 45 UNIT SUBCUT ×2 (09:54→21:03)
--- NOTE | 2021-02-19 10:44 | PC.CHAP ---
Pastoral Care Encounter/Spiritual Assessment Type of Contact [] Declined brownfield redevelopment specialist visit [] Patient/Family/Request visit [] Outpatient visit [] Follow-up visit [] Physician referral [] Code/Alert [x] Routine visit [] Staff referral [] Actively dying [] Patient sleeping [] Family support [] [] Out of room [] Palliative care [] [] Receiving care in room [] Pre-surgical visit [] Trauma [] Long length of stay [] ICU visit [] Other: Relational/Emotional Strength [x] Patient feels connected with others/family/visitors/staff [] Distress [] Loneliness/isolation [] Abandonment Spirituality of Patient [x] Person of Sara [] Attends Congregational of their Sara [x] Believes in Prayer [] Reads Bible or Sikhism materials [] There are Spiritual issues to be addressed Clinical Study Manager Interventions [x] Prayer [x] Active listening [x] Non-anxious presence [x] Spiritual/emotional support [] Crisis/trauma care [] Spiritual counseling [] Bereavement support [] Provided bereavement packet [] Provided Bible/devotional materials [] Provided toy/stuffed animal, coloring book to patient or family member [] Provided Communion [] Anointing/[place] [] Salvation [x] Completed spiritual assessment [] Other: Impact on Illness or Injury [] Angry [] Fearful [] Anxious [] Often cries [] Exhaustion [] Unable to work [] Unable to attend yazdanism [] Unable to walk/stand [] Unable to read [] Unable to drive [] Unable to eat/drink [] Unable to sleep [] Unable to be with family [] Patient intubated [] Other: Summary Clinical Study Manager prayed with patient and family member. Time spent with patient 8 minutes.
[2021-02-19 11:53] LABS: Glucose Point of Care 320 mg/dL (70-110)
--- NOTE | 2021-02-19 12:03 | PM.PN ---
Subjective Subjective: Interval history: Seen and examined this morning. I shared the results of patient's echocardiogram with the patient. He stated he wanted to go home because he could potentially lose his job. I counseled the patient regarding cardiology consult and he agreed to stay for that. EF is 25 to 30%. Patient needs an ischemic work-up. All of these results were also discussed with his at bedside when patient was reseen after the arrived. They are requesting transfer to [facility] if they are going to be staying as inpatient. Otherwise generally patient feels better and states he is still urinating a lot and getting fluid off. He does understand that he will need to be on a strong diuretic regimen going forward. Vitals/I&O/Wt Last Vital Signs Temp 97.7 F 02/19/21 07:33 Pulse 111 H 02/19/21 08:51 Resp 17 02/19/21 07:33 BP 130/92 02/19/21 07:33 Pulse Ox 93 02/19/21 08:51 02/18/21 02/19/21 02/19/21 22:59 06:59 14:59 Intake Total 480 / 1580 280 / 1860 360 / 360 Output Total 1650 / 5340 1450 / 6790 1275 / 1275 Balance -1170 / -3760 -1170 / -4930 -915 / -915 Physical Exam Narrative: EXAM NARRATIVE: General: Alert oriented x3, patient seen sitting up in bed breathing room air appearing comfortable. HEENT: Normocephalic, atraumatic, EOMI, Cardio: Regular rate rhythm, normal S1-S2, no murmurs rubs gallops, Respiratory: Good bilateral air entry, no wheezes no rhonchi appreciated GI: Abdomen soft, nontender, nondistended, bowel sounds + Behavior: Appropriate and cooperative Extremities: Trace edema present lower extremities, no cyanosis Data : 02/18/21 04:41 02/19/21 04:14 A&P Assessment and plan (1) Weight gain with edema: Status: Acute (2) Acute on chronic diastolic CHF (congestive heart failure): Status: Acute (3) ISSA (obstructive sleep apnea): Status: Acute (4) Thrombocytopenia: Status: Acute (5) Anxiety and depression: Status: Acute (6) Psoriasis: Status: Acute (7) Restless leg syndrome: Status: Acute (8) Mood disorder: Status: Acute (9) Atrial fibrillation: Status: Acute Qualifiers: Atrial fibrillation type: unspecified chronic Qualified Code(s): I48.20 - Chronic atrial fibrillation, unspecified Additional A&P Information #Acute on chronic congestive heart failure exacerbation, at this point etiology systolic and diastolic. -Echocardiogram showed new EF of 25 to 30% with left ventricle hypokinesia. Patient has been getting Bumex 2 mg IV push daily. I will keep him on IV for another day and switch to oral by tomorrow. He seemed to have diuresed really well. Patient has been doing well with CPAP overnight. We will set him up with a machine at discharge. human resources clerk are aware. Patient denies any active chest pain. Will consult cardiology for further work-up of low EF. Patient may also qualify for LifeVest at discharge. Continue spironolactone 50 daily Continue Coreg 6.25 twice daily I will add aspirin 81 mg daily We will check lipid panel. #A. fib wit rvr He has history of A. fib Continue Coreg 6.25 twice daily Continue anticoagulation Eliquis 5 mg twice daily #Restless leg syndrome Continue gabapentin #Psoriasis: Continue steroid. I will refer him to a hook loader as an outpatient at discharge to follow-up for this. #Hyperglycemia for type 2 diabetes currently on Lantus to 45 units twice daily Full code DVT prophylaxis Eliquis Consistent carb cardiac diet Attestations Medical Necessity Statement*: Will require another 24 to 48-hour stay in the hospital Coding Level of Care Code Acute Consultant Technology for Chg Fwd Diagnoses Weight gain with edema R63.5; R60.9 Acute on chronic diastolic CHF (congestive heart failure) I50.33 ISSA (obstructive sleep apnea) G47.33 Thrombocytopenia D69.6 Anxiety and depression F41.9; F32.9 Psoriasis L40.9 Restless leg syndrome G25.81 Mood disorder F39 Atrial fibrillation I48.20 Atrial fibrillation type: unspecified chronic
--- NOTE | 2021-02-19 13:20 | P.CONIM_ITS ---
Providers/Reason For Consult Consulting Physician/Specialty*: TEENA Rodriguez MD/cardiology Reason for Consult*: Patient with a cardiomyopathy, severe LV systolic dysfunction and heart failure Attending Physician: Shae Fritz MD Primary Care Provider: Demarcus Rivera MD History of Present Illness History of Present Illness Chun Webster Jr is a 55 year old male, is admitted to hospital through the emergency room, where he presented with complaints of progressive shortness of breath. He was found to be in congestive heart failure. He had an echocardiogram which revealed LV ejection fraction of 25 to 30%. This is a significant drop from the LV ejection fraction patient echocardiogram done in April 2019. Cardiology consult is requested for further cardiac evaluation recommendations. According the patient, he has a history of congestive heart failure and atrial fibrillation. He had some extensive cardiac work-up at the [facility] a year ago. At that time, he had a cardiac catheterization. He was told to have no blockages. His LV ejection fraction was? 40% at that time. He was placed on medications. He might have taken the medication for a month or two. As per the patient, he had to quit all the medications because of the divorce and lack of insurance. He hasn't taken any of his medications for the last 7 to 8 months. Because of his progressive shortness of breath, he was seen by the primary care provider, 2 months ago. He was placed on Lasix, bronchodilators and oral anticoagulant. Since his symptoms are not improving, he decided to come to the hospital. Patient denies any chest pain or chest tightness. Patient has some vague chest symptoms off and on. No chest pain/. Denies any fever or chills. He has a history of diabetes for the last 8 years or so. Also history of high blood pressure. No history for dyslipidemia. Denies any smoking abuse. He drinks two or three beers a day. He also has a history of sleep apnea but has not been using the CPAP for a year or so. His grandfather from both sides had some heart problems. Details are not available. Review of Systems Narrative: CONSTITUTIONAL: No fever or chills. Patient lost around 60 pounds in the last 1 year. According to him, he was trying to lose weight. EYES: No blurring of vision or other visual disturbances lately. ENT: No hoarseness of voice, auditory disturbances or sore throat. CARDIOVASCULAR: As mentioned above. RESPIRATORY: History of COPD/sleep apnea. GASTROINTESTINAL: No hematemesis or melena. GENITOURINARY: No dysuria or hematuria. INTEGUMENTARY: No skin rashes or history of skin cancer. NEURO: No transient ischemic attacks or amaurosis. PSYCHIATRIC: History of depressive illness HEMATOLOGIC: No bleeding disorders or significant anemia. ENDOCRINE: History of insulin requiring diabetes MUSCULOSKELETAL: No recent joint pain or swelling. ALLERGY/IMMUNOLOGY: As mentioned above. Meds/Allergies Home Medications and Allergies Home Medications Medication Instructions Recorded Confirmed Last Taken Type hydroxyzine HCl 25 mg tablet 25 mg PO TID PRN #90 tab 10/24/20 02/17/21 Unknown Rx gabapentin 600 mg tablet 600 mg PO TID 30 Days #90 tab 11/15/20 02/17/21 02/17/21 Rx insulin lispro [Humalog U-100 5 unit SUBCUT Q6H PRN #10 ml 12/03/20 02/17/21 Unknown Rx Insulin] amlodipine 10 mg tablet 10 mg PO DAILY #30 tab 12/05/20 02/17/21 02/17/21 Rx carvedilol 6.25 mg tablet 6.25 mg PO BID #60 tab 12/05/20 02/17/21 02/17/21 Rx ropinirole 1 mg tablet 1 mg PO BID@ Days #60 tab 12/05/20 02/17/21 02/17/21 Rx albuterol sulfate 90 mcg/actuation 2 puff INHALATION Q4H PRN #8.5 g 01/16/21 02/17/21 Unknown Rx aerosol inhaler albuterol sulfate 2.5 mg INHALATION Q4H PRN #90 ml 01/17/21 02/17/21 Unknown Rx CPAP machine & supplies #1 ea 01/20/21 02/17/21 Unknown Rx Lantus U-100 Insulin 45 unit SUBCUT BID@0900,2200 02/17/21 02/17/21 02/17/21 History aripiprazole 10 mg PO BEDTIME 02/17/21 02/17/21 02/16/21 History furosemide 40 mg PO BID 02/17/21 02/17/21 02/17/21 History potassium chloride 20 meq PO DAILY@0900 02/17/21 02/17/21 02/17/21 History spironolactone 25 mg tablet 50 mg PO DAILY #60 tab 02/17/21 02/17/21 02/17/21 Rx Allergies Allergy/AdvReac Type Severity Reaction Status Date / Time trazodone Allergy Unknown Verified 02/17/21 08:17 Current Medications Current Medications Generic Name Dose Route Start Last Admin Trade Name Gallo PRN Reason Stop Dose Admin Apixaban 5 mg 02/17/21 18:00 02/19/21 08:05 Apixaban 5 Mg Tablet PO 5 mg BID IS[place] Administration Bumetanide 2 mg 02/18/21 09:00 02/19/21 08:06 Bumetanide 0.25 Mg/Ml Sdv 10 Ml IVP 2 mg DAILY [place] Administration Carvedilol 6.25 mg 02/17/21 18:00 02/19/21 08:04 Carvedilol 6.25 Mg Tablet PO 6.25 mg BID IS[place] Administration Gabapentin 600 mg 02/18/21 09:00 02/19/21 08:05 Gabapentin 300 Mg Capsule PO 600 mg TID [place] Administration Insulin Glargine 45 unit 02/17/21 22:00 02/19/21 09:54 Insulin Glargine 100 Units/1 Ml SUBCUT 45 unit BID@0900,2200 [place] Administration Insulin Human Lispro 0 unit 02/17/21 18:00 02/19/21 08:02 Insulin Lispro 100 Unit/1 Ml SUBCUT 8 unit WM&BEDTIME [place] Administration Protocol Methylprednisolone Sodium Succinate 30 mg 02/17/21 18:00 02/19/21 05:28 Methylprednisolone Sod Succ 40 Mg/Ml Inj IVP 30 mg Q12H [place] Administration Metolazone 5 mg 02/18/21 10:40 02/19/21 08:05 Metolazone 5 Mg Tablet PO 5 mg DAILY [place] Administration Potassium Chloride 20 meq 02/18/21 09:00 02/19/21 08:04 Potassium Chloride Er 20 Meq Tablet PO 20 meq DAILY [place] Administration Ropinirole HCl 1 mg 02/17/21 22:00 02/19/21 08:05 Ropinirole 1 Mg Tablet PO 1 mg BID@ [place] Administration Spironolactone 50 mg 02/18/21 09:00 02/19/21 08:05 Spironolactone 25 Mg Tablet PO 50 mg DAILY [place] Administration PFSH Acute PFSH: Medical History Alcohol abuse Anxiety and depression Atrial fibrillation Bronchitis due to 2019 novel coronavirus Closed supracondylar fracture of femur Congestive heart failure COVID-19 Diabetes Erectile dysfunction Hyperlipidemia Hypertension Neuropathy ISSA (obstructive sleep apnea) Osteoarthritis Pleural effusion due to CHF (congestive heart failure) Psoriasis Restless leg syndrome Syncope and collapse Thrombocytopenia Weight gain with edema Surgical History H/O knee surgery Hx of cardiac cath S/P total knee arthroplasty Left total knee arthroplasty utilizing the following Aman implants: A size 6 triathlon posterior stabilized press-fit left femoral component, a size 7 triathlon titanium tibial component, press-fit, a triathlon tibial bearing insert size 7 x 9 mm, and an asymmetric 38 mm x 11 mm patella Family History Father Cancer Lung Mother Cancer Brain Other Diabetes Hypertension Social History Alcohol intake: current Alcohol intake frequency: holidays/special occasions only Household members: friend(s) Housing: Apartment Vitals/I&O/Wt Last Vital Signs Temp 98.1 F 02/19/21 12:00 Pulse 111 H 02/19/21 12:00 Resp 17 02/19/21 12:00 BP 144/88 02/19/21 12:00 Pulse Ox 94 02/19/21 12:00 02/18/21 02/19/21 02/19/21 22:59 06:59 14:59 Intake Total 480 / 1580 280 / 1860 600 / 600 Output Total 1650 / 5340 1450 / 6790 1275 / 1275 Balance -1170 / -3760 -1170 / -4930 -675 / -675 Physical Exam Narrative: EXAM NARRATIVE: GENERAL: The patient is alert and oriented times three. Not in any acute distress. Morbidly obese HEENT: No significant pallor, icterus or lymphadenopathy. The pupils are reactant to light. Oral cavity: There are no mucous membrane lesions. Funduscopic examination: The fundus is not visualized NECK: Trachea appears to be central. No masses noted. JVD of 3 cm above the angle of [place]. RESPIRATORY: Chest is symmetrical. No intercostals muscle retraction or any accessory muscle activation. There is no chest wall tenderness. Breath sounds are heard bilaterally. No rales or rhonchi heard. No evidence of any consolidation. BREASTS: Deferred. HEART: The PMI could not be palpated. No other palpable precordial events. No palpable precordial events. S1 is variable. Normal S2. No S3. Short systolic murmur in the mitral area. No diastolic murmurs. No pericardial rub. ABDOMEN: No vessel pulsations or distention. No tenderness. No organomegaly appreciated. No abdominal bruit. Bowel sounds are normally heard. : Deferred. RECTAL: Deferred. LYMPHATIC: No lymphadenopathy noted in the neck or groin. EXTREMITIES: Trace edema with no cyanosis. Peripheral pulses are palpable in fairly good volume and amplitude. MUSCULOSKELETAL: No acute joint deformities or swelling SKIN: There are no significant scars or skin rash noted. NEUROPSYCHIATRIC: The patient is alert and oriented x3. Appears to be in a good mood. The higher functions are grossly within normal limits. No tremors or rigidity noted. Data Labs: Other Labs: Laboratory Last Values WBC 3.6 10^3/uL (4.0- 10.0) L 02/18/21 04:41 RBC 4.75 10^6/uL (4.1 -5.3) 02/18/21 04:41 Hgb 13.2 g/dL (11.7-1 6.6) 02/18/21 04:41 Hct 42.4 % (42.0-52.0 ) 02/18/21 04:41 MCV 89.3 fl (80-94) 02/18/21 04:41 MCH 27.8 pg (28.0-34. 0) L 02/18/21 04:41 MCHC 31.1 g/dL (30.0-3 6.0) 02/18/21 04:41 RDW 15.8 % (12.1-15.1 ) H 02/18/21 04:41 Plt Count 100 10^3/cmm (130 -400) L 02/18/21 04:41 MPV 12.6 fL (7.4-10.4 ) H 02/18/21 04:41 Neut % (Auto) 76.6 % 02/18/21 04:41 Lymph % (Auto) 17.2 % 02/18/21 04:41 [place] % (Auto) 5.0 % 02/18/21 04:41 Eos % (Auto) 0.3 % 02/18/21 04:41 Baso % (Auto) 0.6 % 02/18/21 04:41 Neut # (Auto) 2.76 10^3/uL (1.8 -7.7) 02/18/21 04:41 Lymph # (Auto) 0.6 10^3/uL (0.8- 4.8) L 02/18/21 04:41 [place] # (Auto) 0.2 10^3/uL (0.2- 0.9) 02/18/21 04:41 Eos # (Auto) 0.0 10^3/uL (0.0- 0.8) 02/18/21 04:41 Baso # (Auto) 0.0 10^3/uL (0.0- 0.1) 02/18/21 04:41 Nucleated RBC % (a uto) 0 % 02/18/21 04:41 Nucleated RBCs # 0.0 /100WBC 02/18/21 04:41 APTT 33.6 SECONDS (23. 9-36.7) 02/17/21 09:46 Sodium 133 mmol/L (136-1 45) L 02/19/21 04:14 Potassium 4.2 mmol/L (3.5-5 .1) 02/19/21 04:14 Chloride 95 mmol/L (98-107 ) L 02/19/21 04:14 Carbon Dioxide 30 mmol/L (22-29) H 02/19/21 04:14 Anion Gap 12.2 (5-19) 02/19/21 04:14 BUN 19 mg/dL (6-20) 02/19/21 04:14 Creatinine 0.9 mg/dL (0.7-1. 2) 02/19/21 04:14 GFR Calculation 87.9 mL/min (90-1 30) L 02/19/21 04:14 Glucose 298 mg/dL (65-115 ) H 02/19/21 04:14 POC Glucose 320 mg/dL (70-110 ) H 02/19/21 11:33 Estimat Average Gl ucose 249 02/17/21 09:46 Hemoglobin A1c 10.3 % (4.0-6.0) H 02/17/21 09:46 Calculated Osmolal ity 289 mOsm/kg (285- 295) 02/19/21 04:14 Calcium 8.7 mg/dL (8.5-10 .5) 02/19/21 04:14 Total Bilirubin 1.1 mg/dL (0.15-1 .2) 02/17/21 09:46 AST 35 U/L (0-40) 02/17/21 09:46 ALT 25 U/L (0-41) 02/17/21 09:46 Alkaline Phosphata se 251 IU/L (40-130) H 02/17/21 09:46 Troponin T Baselin e 15 ng/L (0-15) 02/17/21 09:46 Troponin T 120 Min cherrie 14.37 ng/L (0-15) 02/17/21 11:45 Delta Troponin T -0.63 ABS# (0-10) L 02/17/21 11:45 Troponin T Hi Sens 6Hr 15.77 ng/L (0-15) H 02/17/21 16:08 Troponin T Hi Sens 6Hr Delta 0.77 ng/L (0-12) 02/17/21 16:08 NT-Pro-B Natriuret Pep 738 pg/mL (0-125) H 02/17/21 09:46 Total Protein 7.0 g/dL (6.6-8.7 ) 02/17/21 09:46 Albumin 4.1 g/dL (3.5-5.2 ) 02/17/21 09:46 Globulin 2.9 g/dL (1.3-4.6 ) 02/17/21 09:46 Procalcitonin 0.08 ng/mL (0-0.5 ) 02/17/21 09:46 SARS-CoV-2 Ag (Rap id) Negative (Negati ve) 02/17/21 10:07 Imaging^: Echo: My impression: The echocardiogram on 02/18/2021 revealed Mildly dilated left ventricle with ejection fraction of around 25 to 30%. Diffuse hypokinesia of the left ventricle. Mild biatrial enlargement. Mild prolapse of the anterior mitral leaflet. Mild to moderate eccentric mitral regurgitation. Trace to mild tricuspid regurgitation. Normal pulmonary artery peak systolic pressure. There is no pericardial effusion. There are no intracardiac masses. Compared to the study from 05/28/2019, there is significant drop in the LV ejection fraction-55% to 25-30% [id number] EKG^: EKG 1: My Interpretation: EKG revealed atrial fibrillation with controlled ventricular response rate of 86 bpm. Left axis deviation. Nonspecific T wave changes. Possible LVH by voltage criteria. Nonspecific IVCD. A&P Assessment and plan (1) Acute on chronic systolic heart failure: It looks to me that the patient has worsening of the LV systolic function. Noncompliance to medication could be the major contributing factor. Based on his history, he has nonischemic cardiomyopathy. However we need to get the medical records from the [facility]. In the meanwhile, we may focus on optimizing the diuretics and afterload reducing agents. I may start him on Entresto Status: Acute (2) Benign essential hypertension with target blood pressure below 140/90: Currently the blood pressure is a stage II. We'll try to optimize the antihypertensive medications. Status: Acute (3) ISSA (obstructive sleep apnea): Patient may need to be back on the CPAP. This also may be playing a role in the decompensated heart failure. Status: Acute (4) Chronic atrial fibrillation: We'll continue the long-term oral anticoagulation. His heart rate is fairly under control. Status: Acute (5) Diabetes: Patient's blood sugar seems to be high. Aggressive blood sugar control also would be appropriate. Status: Acute Qualifiers: Diabetes mellitus complication status: with hyperglycemia Diabetes mellitus snf insulin use: with snf use Diabetes mellitus type: type 2 Qualified Code(s): E11.65 - Type 2 diabetes mellitus with hyperglycemia; Z79.4 - long term care social worker (current) use of insulin (6) Pleural effusion: The etiology of the pleural effusion is not clear. Heart failure could be accountability factor. But need to rule out any other pathology. According the patient, he lost around 60 pounds in the last 1 year. He explained it is intentional. Status: Acute (7) Non-ischemic cardiomyopathy: In view of his's severe LV dysfunction, he may require prophylactic ICD. However since he was not any medical treatment, it would be appropriate to consider the wearable external defibrillator for the time being. Also may do a myocardial perfusion imaging to evaluate for any underlying coronary ischemia. Based on the results, further recommendations will be made Status: Acute (8) Acute on chronic diastolic CHF (congestive heart failure): Status: Acute Additional A&P Information Based on the patient's clinical progress and the results of the above, further recommendations will be made. Thank you for the opportunity to eval this patient make these recommendations Consult Attestations Medical Necessity Statement: Patient requires continued hospital stay for close monitoring and further management Coding Level of Care Code Acute Pin Attacher for Shreya Espinoza History Detailed Exam Detailed Medical Decision Making Moderate Complexity Diagnoses Acute on chronic systolic heart failure I50.23 Benign essential hypertension with target blood pressure below 140/90 I10 ISSA (obstructive sleep apnea) G47.33 Chronic atrial fibrillation I48.20 Diabetes E11.65; Z79.4 Diabetes mellitus complication status: with hyperglycemia Diabetes mellitus snf insulin use: with snf use Diabetes mellitus type: type 2 Pleural effusion J90 Non-ischemic cardiomyopathy I42.8 Acute on chronic diastolic CHF (congestive heart failure) I50.33
--- NOTE | 2021-02-19 15:02 | CTR_ITS ---
PROCEDURE INFORMATION: Exam: CT Chest Without Contrast; Diagnostic Exam date and time: 02/19/2021 3:02 PM Age: 55 years old Clinical indication: Shortness of breath; Patient HX: Continued SOB. Pleural effusion. ; Additional info: Follow up pleural effusion TECHNIQUE: Imaging protocol: Diagnostic computed tomography of the chest without contrast. Radiation optimization: All CT scans at this facility use at least one of these dose optimization techniques: automated exposure control; mA and/or kV adjustment per patient size (includes targeted exams where dose is matched to clinical indication); or iterative reconstruction. COMPARISON: CT angio chest PE protcl [id number] 03/04/2020 6:57 AM RADIATION DOSE METRICS: Total DLP (mGy-cm): 1061.71 FINDINGS: Lungs: Atelectasis changes in the lower lobes greater on right than left. No septal thickening. No peripheral honeycombing. Negative for bronchiectasis. Pleural spaces: Large right pleural effusion. Small volume left pleural effusion. Heart: Multichamber cardiac enlargement. Negative for pericardial effusion. Mediastinal space: No thoracic esophageal wall thickening identified. Aorta: Unremarkable. No aortic aneurysm. Lymph nodes: Unremarkable. No enlarged lymph nodes. Liver: Nodular surface contour of liver consistent with cirrhosis. Spleen: Splenomegaly. Bones/joints: Unremarkable. No acute fracture. Soft tissues: Unremarkable. CT/CT chest [facility] [id number] IMPRESSION: Bilateral pleural effusions significantly larger on right than left. Radiation Dose CTDIVOL = (mGy): DLP = 1061.71 (mGy-cm)
[2021-02-19 15:39] LABS: Chol HDL Ratio 2.14 mg/dL (1.0-5.00); Cholesterol 135 mg/dL (0-200); HDL Cholesterol 63 mg/dL (60-100); LDL Cholesterol Calculated 61 mg/dL (50-129); LDL HDL Ratio 0.97 RATIO (0.00-3.22); Triglycerides 54 mg/dL (0-150)
[2021-02-19 17:25] LABS: Glucose Point of Care 326 mg/dL (70-110)
[2021-02-19] MEDS: sacubitril/valsartan 24-26 mg Tablet 1 EACH PO (18:10)
[2021-02-19 20:48] LABS: Glucose Point of Care 279 mg/dL (70-110)
[2021-02-20] VITALS (9 sets, daily range): BP systolic 101–150; BP diastolic 64–96; PULSE 77–113; RESP 12–20; TEMP 36.3–36.6; O2SAT 93–99
--- NOTE | 2021-02-20 00:08 | NMCV_ITS ---
NM gary perf SPECT r/s* [id number] Chun Webster Age: 55 Gender: M : 1965 Exam Date: 02/20/2021 07:00 Ordering Phys: Chai Rodriguez MD ([email or web address]) Technologist: GILLIAN Gould Exam Location: [facility] Indications: CHF STRESS TEST Please see separate stress test report in [facility] for full findings IMAGE PROTOCOL Rest/Stress 1 Lexiscan Day Radiopharmaceutical Dose (mCi) Administration Site Administered by Rest: Tc-99m 11.0 IV GILLIAN العراقي Sestamibi Stress:Tc-99m 33.0 IV GILLIAN العراقي Sestamibi Rest: 20-Feb-2021 60 Discovery 630 Stress: 20-Feb-2021 30 Discovery 630 0.4mg Lexiscan. Images obtained in supine and prone position. SPECT RESULTS Technical Quality: Excellent Raw Data Analysis: Normal Image Corrections: No attenuation or motion correction applied Summed Stress Score: 6 Summed Rest Score: 7 Summed Difference Score: 0 PERFUSION FINDINGS A small to moderate area of persistent decreased uptake in the basal, mid and apical inferior, apical lateral segments. No significant reversibility was noted in these areas. FUNCTIONAL RESULTS (calculated via Gated SPECT) Stress Image LV EF (%): 16 Stress EDV (mL):249 TID: 1.03 Stress ESV (mL):208 FUNCTIONAL FINDINGS: Severe diffuse hypokinesia of the left ventricle IMPRESSIONS 1. Myocardial perfusion imaging revealing a small to moderate area of persistent decreased tracer uptake in the inferior wall and apical region suggestive of myocardial scarring versus attenuation artifact. 2. Markedly diminished LV ejection fraction of 16%. 3. LV wall motion analysis revealed a severe diffuse hypokinesia of the left ventricle. 4. Markedly dilated LV cavity with an end-systolic volume of 208 mL The above features may suggest a nonischemic form of cardiomyopathy. No previous similar studies are available for combine Dr Chai Rodriguez MD FACC (Electronically Signed) Final Date: 20 February 2021 10:13 S
[2021-02-20 05:21] LABS: Basophils % 0.2 %; Hematocrit 46.2 % (42.0-52.0); Hemoglobin 14.9 g/dL (11.7-16.6); Lymphocytes # 0.8 10^3/uL (0.8-4.8); Lymphocytes % 13.9 %; Mean Corpuscular HGB Conc 32.3 g/dL (30.0-36.0); Mean Corpuscular Hemoglobin 28.1 pg (28.0-34.0); Mean Corpuscular Volume 87.2 fl (80-94); Mean Platelet Volume 12.7 fL (7.4-10.4); Monocytes # 0.5 10^3/uL (0.2-0.9); Neutrophils # 4.36 10^3/uL (1.8-7.7); Neutrophils % 77.5 %; Nucleated Red Blood Cells % 0 %; Platelet Count 102 10^3/cmm (130-400); Red Cell Distribution Width 15.4 % (12.1-15.1); White Blood Count 5.6 10^3/uL (4.0-10.0)
[2021-02-20 05:44] LABS: Anion Gap 12.2 (5-19); Blood Urea Nitrogen 22 mg/dL (6-20); Calcium 8.9 mg/dL (8.5-10.5); Carbon Dioxide 32 mmol/L (22-29); Chloride 94 mmol/L (98-107); Glomerular Filtration Rate 100.7 mL/min (90-130); Glucose 321 mg/dL (65-115); Magnesium 1.8 mg/dL (1.7-2.3); Osmolality Calculated 294 mOsm/kg (285-295); Potassium 4.2 mmol/L (3.5-5.1); Sodium 134 mmol/L (136-145)
[2021-02-20 06:45] LABS: Glucose Point of Care 267 mg/dL (70-110)
--- NOTE | 2021-02-20 07:05 | ECG_ITS ---
[facility] Test Date: 2021-02-20 Pat Name: Chun Webster Department: Room: 252 Gender: Male Cytology Manager: : 1965 Requested By: Chai Rodriguez Order Number: [id number] [place] MD: Chai Rodriguez M.D. Interpretive Statements NAME OF STUDY: LEXISCAN SESTAMIBI STRESS TEST INDICATION: ashd/nstemi/chf, PROCEDURE: At the baseline, the EKG revealed atrial fibrillation with a controlled ventricular response rate of 97 bpm. Poor R wave progression. Voltage irregular for LVH. Left axis deviation. Nonspecific T wave changes. The baseline blood pressure was 110/92 mm Hg with a heart rate of 97 beats/min. Lexiscan was infused over a period of 20 seconds. A total of 0.4 milligrams of Lexiscan was infused. The stress phase was continued for a total of 5 minutes. Heart rate at the end of the stress phase was 106 with a blood pressure 114/84. The EKG at the peak infusion revealed no significant changes. Sestamibi was injected 20 seconds after the Lexiscan infusion. Blood pressure at the end of the recovery phase was 121/87 with a heart rate of 97 per minute. CONCLUSION: 1. No significant EKG changes with the LexiScan infusion 2. No LexiScan induced chest pain or cardiac arrhythmia 3. Normal blood pressure and heart rate response 4. Sestamibi/sestamibi perfusion scan pending; see separate report. Electronically Signed On 02-24-2021 22:42:15 CDT by Chai Rodriguez M.D. [id number]
--- NOTE | 2021-02-20 07:47 | PM.PN ---
Vitals/I&O/Wt Last Vital Signs Temp 97.4 F L 02/20/21 03:38 Pulse 84 02/20/21 05:47 Resp 12 02/20/21 03:38 BP 147/96 02/20/21 03:38 Pulse Ox 98 02/20/21 03:38 02/19/21 02/20/21 02/20/21 22:59 06:59 14:59 Intake Total 240 / 840 Output Total 3330 / 5405 0 / 5405 480 / 480 Balance -3090 / -4565 0 / -4565 -480 / -480 Data : 02/20/21 04:36 02/20/21 04:36 Coding Level of Care Code Acute Production Cell Leader for Shreya Espinoza
[2021-02-20] MEDS: regadenoson 0.4 Mg/5 ml Syringe IVP (08:07)
[2021-02-20] MEDS: spironolactone 25 mg Tablet 50 MG PO (10:41)
[2021-02-20] MEDS: ropinirole 1 mg Tablet PO ×2 (10:41→21:14)
[2021-02-20] MEDS: gabapentin 300 mg Capsule 600 MG PO ×3 (10:41→21:14)
[2021-02-20] MEDS: sacubitril/valsartan 24-26 mg Tablet 1 EACH PO ×2 (10:41→17:39)
[2021-02-20] MEDS: potassium chloride ER 20 mEq Tablet PO (10:42)
[2021-02-20] MEDS: metOLazone 5 MG Tablet PO (10:43)
[2021-02-20] MEDS: apixaban 5 mg Tablet PO ×2 (10:43→17:39)
[2021-02-20] MEDS: aspirin 81 mg EC Tablet PO (10:43)
[2021-02-20] MEDS: bumetanide 0.25 mg/mL SDV 10 mL 2 MG IVP (10:44)
[2021-02-20 11:30] LABS: Glucose Point of Care 477 mg/dL (70-110)
[2021-02-20] MEDS: insulin glargine 100 units/1 mL 45 UNIT SUBCUT ×2 (11:44→21:15)
[2021-02-20] MEDS: insulin lispro 100 unit/1 mL SUBCUT ×3 (11:48→21:14)
--- NOTE | 2021-02-20 13:30 | P.PN_ITS ---
Subjective Subjective: Interval history: The patient is feeling okay with no chest pain or chest tightness. No unusual shortness of breath. He had a myocardial perfusion imaging today. He was found to have no evidence of ischemia based on the perfusion scan. He had a CT of the chest which revealed a large pleural effusion on the right side and a small effusion on the left side. The etiology is not clear. Medications: Reviewed: Yes Medication Review Details: Current Medications Acetaminophen (Acetaminophen 325 Mg Tablet) 650 mg PO Q6H PRN PRN Reason: Mild/Mod Pain Or Temp >/= 101 Albuterol/Ipratropium (Ipratropium-Albuterol 3 Ml Neb) 3 ml INHALATION Q6H PRN PRN Reason: SHORTNESS OF BREATH Aminophylline (Aminophylline 25 Mg/Ml Sdv 10 Ml) 25 mg IVP Q2M PRN PRN Reason: see dose instructions Stop: 02/21/21 07:05 Apixaban (Apixaban 5 Mg Tablet) 5 mg PO BID [facility] Last Admin: 02/20/21 10:43 Dose: 5 mg Documented by: Aspirin (Aspirin 81 Mg Ec Tablet) 81 mg PO DAILY [facility] Last Admin: 02/20/21 10:43 Dose: 81 mg Documented by: Bumetanide (Bumetanide 0.25 Mg/Ml Sdv 10 Ml) 2 mg IVP DAILY [facility] Last Admin: 02/20/21 10:44 Dose: 2 mg Documented by: Carvedilol (Carvedilol 6.25 Mg Tablet) 6.25 mg PO BID [facility] Last Admin: 02/19/21 18:00 Dose: 6.25 mg Documented by: Dextrose (Dextrose 50% Syringe 50 Ml) 25 ml IVP ONCE PRN; Protocol PRN Reason: hypoglycemia protocol Dextrose (Dextrose 50% Syringe 50 Ml) 50 ml IVP PRN PRN; Protocol PRN Reason: hypoglycemia protocol Gabapentin (Gabapentin 300 Mg Capsule) 600 mg PO TID [facility] Last Admin: 02/20/21 10:41 Dose: 600 mg Documented by: Glucagon (Glucagon 1 Mg/Ml Inj 1 Ml) 1 mg IM ONCE PRN; Protocol PRN Reason: Adult Acute Hypoglycemia Prot. Dextrose (D5w) 500 mls @ 100 mls/hr IV ONCE PRN; Protocol PRN Reason: Adult Acute Hypoglycemia Prot Insulin Glargine (Insulin Glargine 100 Units/1 Ml) 45 unit SUBCUT BID@0900,2200 [facility] Last Admin: 02/20/21 11:44 Dose: 45 unit Documented by: Insulin Human Lispro (Insulin Lispro 100 Unit/1 Ml) 0 unit SUBCUT WM&BEDTIME [facility]; Protocol Last Admin: 02/20/21 11:48 Dose: 16 unit Documented by: Methylprednisolone Sodium Succinate (Methylprednisolone Sod Succ 40 Mg/Ml Inj) 30 mg IVP Q12H [facility] Last Admin: 02/20/21 05:44 Dose: 30 mg Documented by: Metolazone (Metolazone 5 Mg Tablet) 5 mg PO DAILY [facility] Last Admin: 02/20/21 10:43 Dose: 5 mg Documented by: Nitroglycerin (Nitroglycerin 0.4 Mg Sublingual Tablet) 0.4 mg SUBLINGUAL Q5M PRN PRN Reason: CHEST PAIN Stop: 02/21/21 07:05 Ondansetron HCl (Ondansetron 2 Mg/Ml Sdv 2 Ml) 4 mg IVP Q6H PRN PRN Reason: NAUSEA AND VOMITING Ondansetron HCl (Ondansetron 2 Mg/Ml Sdv 2 Ml) 4 mg IVP Q2M PRN PRN Reason: NAUSEA Potassium Chloride (Potassium Chloride Er 20 Meq Tablet) 20 meq PO DAILY [facility] Last Admin: 02/20/21 10:42 Dose: 20 meq Documented by: Ropinirole HCl (Ropinirole 1 Mg Tablet) 1 mg PO BID@,22 [facility] Last Admin: 02/20/21 10:41 Dose: 1 mg Documented by: Sacubitril/Valsartan (Sacubitril/Valsartan 24-26 Mg Tablet) 1 each PO BID [facility] Last Admin: 02/20/21 10:41 Dose: 1 each Documented by: Spironolactone (Spironolactone 25 Mg Tablet) 50 mg PO DAILY [facility] Last Admin: 02/20/21 10:41 Dose: 50 mg Documented by: Vitals/I&O/Wt Last Vital Signs Temp 97.6 F 02/20/21 11:18 Pulse 100 02/20/21 11:18 Resp 16 02/20/21 11:18 BP 118/74 02/20/21 11:18 Pulse Ox 94 02/20/21 11:18 02/19/21 02/20/21 02/20/21 22:59 06:59 14:59 Intake Total 240 / 840 Output Total 3330 / 5405 0 / 5405 480 / 480 Balance -3090 / -4565 0 / -4565 -480 / -480 Physical Exam Narrative: EXAM NARRATIVE: GENERAL: The patient is alert and oriented times three. Not in any acute distress. Morbidly obese HEENT: No significant pallor, icterus or lymphadenopathy. The pupils are symmetrical.. Oral cavity: There are no mucous membrane lesions. NECK: Trachea appears to be central. No masses noted. JVD of 3 cm above the angle of [place]. RESPIRATORY: Chest is symmetrical. No intercostals muscle retraction or any accessory muscle activation. There is no chest wall tenderness. Breath sounds are heard bilaterally. No rales or rhonchi heard. No evidence of any consolidation. The breath sounds are significantly diminished on the right side in the lower zone. BREASTS: Deferred. HEART: The PMI could not be palpated. No other palpable precordial events. No palpable precordial events. S1 is variable. Normal S2. No S3. Short systolic murmur in the mitral area. No diastolic murmurs. No pericardial rub. ABDOMEN: No vessel pulsations or distention. No tenderness. No organomegaly appreciated. No abdominal bruit. Bowel sounds are normally heard. : Deferred. RECTAL: Deferred. LYMPHATIC: No lymphadenopathy noted in the neck or groin. EXTREMITIES: Trace edema with no cyanosis. Peripheral pulses are palpable in fairly good volume and amplitude. MUSCULOSKELETAL: No acute joint deformities or swelling SKIN: There are no significant scars or skin rash noted. NEUROPSYCHIATRIC: The patient is alert and oriented x3. Appears to be in a good mood. The higher functions are grossly within normal limits. No tremors or rigidity noted. Data : 02/20/21 04:36 02/20/21 04:36 A&P Assessment and plan (1) Acute on chronic systolic heart failure: It looks to me that the patient has worsening of the LV systolic function. Noncompliance to medication could be the major contributing factor. Based on his history, he has nonischemic cardiomyopathy. However we need to get the medical records from the [facility]. In the meanwhile, we may focus on optimizing the diuretics and afterload reducing agents. I may start him on Entresto.\ Patient had a myocardial perfusion imaging today. He was found to have no evidence of ischemia. Features were consistent with a nonischemic cardiomyopathy Status: Acute (2) Benign essential hypertension with target blood pressure below 140/90: The blood pressure seems to be getting under control. May continue with her medications Status: Acute (3) ISSA (obstructive sleep apnea): Patient may need to be back on the CPAP. This also may be playing a role in the decompensated heart failure. Status: Acute (4) Chronic atrial fibrillation: We'll continue the long-term oral anticoagulation. His heart rate is fairly under control. Status: Acute (5) Diabetes: Patient's blood sugar seems to be high. Aggressive blood sugar control also would be appropriate. Status: Acute Qualifiers: Diabetes mellitus complication status: with hyperglycemia Diabetes mellitus senior living insulin use: with senior living use Diabetes mellitus type: type 2 Qualified Code(s): E11.65 - Type 2 diabetes mellitus with hyperglycemia; Z79.4 - exterminator helper (current) use of insulin (6) Pleural effusion: The etiology of the pleural effusion is not clear. Patient may benefit from thoracentesis-both therapeutic and diagnostic. Management as per the hospitalist service. Status: Acute (7) Non-ischemic cardiomyopathy: In view of the LV systolic dysfunction, patient may benefit from external cardiac defibrillator. He is awaiting the LifeVest. Patient was started on Entresto. This may be continued. Status: Acute Additional A&P Information Based on the clinical progress, further recommendations will be made. At this point, the patient do not require any further cardiac work-up. 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
[2021-02-20 16:41] LABS: Glucose Point of Care 367 mg/dL (70-110)
--- NOTE | 2021-02-20 20:04 | PM.PN ---
Subjective Subjective: Interval history: Seen and examined today after stress test. Patient feels well and says he tolerated the test as well and did not have any problems. Will await results today. He offers no complaints. Vitals/I&O/Wt Last Vital Signs Temp 97.9 F 02/20/21 15:34 Pulse 113 H 02/20/21 15:34 Resp 18 02/20/21 15:34 BP 101/64 02/20/21 15:34 Pulse Ox 94 02/20/21 15:34 02/20/21 02/20/21 02/20/21 06:59 14:59 22:59 Output Total 0 / 5405 1280 / 1280 2300 / 3580 Balance 0 / -4565 -1280 / -1280 -2300 / -3580 Physical Exam Narrative: EXAM NARRATIVE: General: Alert oriented x3, patient seen sitting up in bed breathing room air appearing comfortable. He was seen after his stress test today with at bedside. He was about to have his breakfast. HEENT: Normocephalic, atraumatic, EOMI, Cardio: Regular rate rhythm, normal S1-S2, no murmurs rubs gallops, Respiratory: Good bilateral air entry, no wheezes no rhonchi appreciated GI: Abdomen soft, nontender, nondistended, bowel sounds + Behavior: Appropriate and cooperative Extremities: Trace edema present lower extremities, no cyanosis Data : 02/20/21 04:36 02/20/21 04:36 A&P Assessment and plan (1) Acute on chronic systolic heart failure: Status: Acute (2) Benign essential hypertension with target blood pressure below 140/90: Status: Acute (3) ISSA (obstructive sleep apnea): Status: Acute (4) Chronic atrial fibrillation: Status: Acute (5) Diabetes: Status: Acute Qualifiers: Diabetes mellitus complication status: with hyperglycemia Diabetes mellitus intermediate insulin use: with intermediate use Diabetes mellitus type: type 2 Qualified Code(s): E11.65 - Type 2 diabetes mellitus with hyperglycemia; Z79.4 - jail (current) use of insulin (6) Pleural effusion: Status: Acute (7) Non-ischemic cardiomyopathy: Status: Acute Additional A&P Information #Acute on chronic congestive heart failure exacerbation, at this point etiology systolic and diastolic. -Echocardiogram showed new EF of 25 to 30% with left ventricle hypokinesia. We will continue patient on Bumex 2 mg daily. I will discharge him on Bumex 2 mg daily as well. We will stop the metolazone. He seems to have diuresed well. He will be set up with a CPAP machine at discharge. He will also be needing a LifeVest at discharge. Cardiology on board and following. Will await results of the stress test and discussed with cardiology before discharging patient. Continue spironolactone 50 daily Continue Coreg 6.25 twice daily #Large right pleural effusion ?Patient will go for thoracentesis in the morning with Dr. Salcedo and will send fluid for cytology. -Patient is on Eliquis. Discussed with Dr. Salcedo. He can remain on Eliquis we do not need to hold it. #A. fib wit rvr He has history of A. fib Continue Coreg 6.25 twice daily Continue anticoagulation Eliquis 5 mg twice daily #Restless leg syndrome Continue gabapentin #Psoriasis: Continue steroid. I will refer him to a grain elevator motor starter as an outpatient at discharge to follow-up for this. #Hyperglycemia for type 2 diabetes currently on Lantus to 45 units twice daily Full code DVT prophylaxis Eliquis Consistent carb cardiac diet Plan for discharge tomorrow after pleural fluid tap and LifeVest set up. Attestations Medical Necessity Statement*: Anticipate another 24 hours of hospital stay. Coding Level of Care Code Acute Linseed Oil Temperer for [facility] Fwd Diagnoses Acute on chronic systolic heart failure I50.23 Benign essential hypertension with target blood pressure below 140/90 I10 ISSA (obstructive sleep apnea) G47.33 Chronic atrial fibrillation I48.20 Diabetes E11.65; Z79.4 Diabetes mellitus complication status: with hyperglycemia Diabetes mellitus intermediate insulin use: with terminal block assembler use Diabetes mellitus type: type 2 Pleural effusion J90 Non-ischemic cardiomyopathy I42.8
[2021-02-20 21:31] LABS: Glucose Point of Care 332 mg/dL (70-110)
[2021-02-21] VITALS (8 sets, daily range): BP systolic 114–132; BP diastolic 73–90; PULSE 55–148; RESP 16–18; TEMP 36.3–36.9; O2SAT 93–96
[2021-02-21 06:23] LABS: Glucose Point of Care 206 mg/dL (70-110)
--- NOTE | 2021-02-21 09:11 | PC.NURSE ---
Thoracentisis pt went for above.
--- NOTE | 2021-02-21 09:40 | XR_ITS ---
WS: [id number] Exam: XR chest 1V portable [id number] Date/Time of Exam: 02/21/2021 9:40 AM Reason For Exam: Post thoracentesis procedure Comparison 02/17/2021. The lungs are fully expanded. Small right basal pleural effusion is noted. Heart size is top limits n ormal. No infiltrates are seen. The mediastinum and osseous thorax are unremarkable. XR/XR chest 1V portable [id number] IMPRESSION: 1. No acute infiltrate or pneumothorax. 2. Small right basal pleural effusion.
--- NOTE | 2021-02-21 09:46 | P.PCN_ITS ---
Procedure/Consent Time out: Time Out Performed: Yes Consent: Consent for Procedure: Consent obtained from patient Procedure Narrative: Name of the procedure: Right-sided thoracentesis under ultrasound guidance Indication: Suspicion for infected pleural effusion Anesthetics: Local anesthesia with 1% lidocaine. 10 mL. IV pain medication: None. Description of the procedure: The procedure was explained to the patient in detail including the risks and a consent was obtained. The right hemithorax was scanned with ultrasound to find a safe fluid pocket. Large quantity of free- flowing fluid was noted. There was no complexity. Following identification of the fluid pocket the site was marked. The site was cleaned using sterile technique. Lidocaine 1% was injected into the skin and the subcutaneous tissue. Subsequently, the periosteum in the parietal pleural was also anesthetized using lidocaine. The pleural space was entered in the posterior axillary line in the right ninth intercostal space. Serous pleural fluid was aspirated. 1800 cc of pleural fluid was removed. Sample: The pleural fluid was sent for cell count and differential, pH, protein, LDH, albumin, Gram stain and culture, fungal stain and culture, and cytology. Postprocedure chest x-ray is pending. Acute Procedures Epistaxis Control: Time out performed: Yes
[2021-02-21 10:29] LABS: Body Fluid Polynuclear #Cells 0.077; Body Fluid WBC 350 /uL; Monocytes # Body Fluid 0.273
[2021-02-21 10:31] LABS: Color, Body Fluid YELLOW
[2021-02-21 10:32] LABS: Apprearance, Body Fluid CLOUDY
--- NOTE | 2021-02-21 10:36 | P.DS_ITS ---
Discharge Providers Date of Admission: 02/18/21 13:19 Date of Discharge: February 20, 2021 Attending Provider at Admission: Colin Lang MD Attending Provider at Discharge: Shae Fritz MD Primary Care Provider: Demarcus Rivera MD Diagnoses at Discharge Discharge Diagnosis (1) Acute on chronic systolic heart failure: Status: Acute (2) Benign essential hypertension with target blood pressure below 140/90: Status: Acute (3) ISSA (obstructive sleep apnea): Status: Acute (4) Chronic atrial fibrillation: Status: Acute (5) Diabetes: Status: Acute Qualifiers: Diabetes mellitus complication status: with hyperglycemia Diabetes mellitus skilled nursing insulin use: with long filler cigar roller machine use Diabetes mellitus type: type 2 Qualified Code(s): E11.65 - Type 2 diabetes mellitus with hyperglycemia; Z79.4 - intermediate (current) use of insulin (6) Pleural effusion: Status: Acute (7) Non-ischemic cardiomyopathy: Status: Acute Reason for Visit Reason for Visit: Congestive Heart Failure, sent per [facility] Course Hospital Course HNP as per Dr. Lang Chun Webster Jr is a 55 year old male who carries history of psoriasis, preserved ejection fraction heart failure, sleep apnea, diabetes, was sent in from his PCP clinic because of worsening shortness of breath orthopnea and PND. Patient is stating that for last 1 year he has not used his CPAP he is in the process of getting it approved again via insurance(his ex- returned his CPAP after divorce). Patient is endorsing worsening shortness of breath on minimal activities his symptoms, he can hardly take 20-30 steps without getting short of breath. He has not experienced any chest pain, nausea, vomiting. He tries to eat low-salt cardiac healthy diet. He has not missed any medications other than Eliquis. He has not taken Eliquis for last 6 months because of insurance coverage. He can get insurance through his employer next year in April. He has been compliant with his rest of the medication. His PCP did increase his Lasix dose to 40 mg twice a day however his symptoms did not improve. He has gained 32 pounds in last 2 weeks. He is experiencing orthopnea and PND. He is not vaccinated for COVID-19 and is adamant that he will not get anything which is mandated by the government. Diagnosis in the ER revealed CHF exacerbation he received IV diuretics, he was saturating well on room air I discontinued his 2 L nasal cannula, clinically looks bloated, A. fib heart rate controlled normal blood pressure saturating 96% on room air, high blood sugar, bnp, Hospital course: Echocardiogram revealed EF 25 to 30% mildly dilated left ventricle. Diffuse hypokinesia of left ventricle. Cardiology was consulted. Due to patient's recent angiogram it was decided to proceed with a stress test. Stress test was done and did not show any evidence of ischemia as per my discussion with the motion picture set grip today. Patient was placed on Entresto. He has been diagnosed with nonischemic cardiomyopathy. Patient also had right pleural effusion which was tapped. 1800 cc fluid removed. Fluid was sent for cytology and culture. He will follow up with Dr. Rodriguez for the results of the fluid analysis. Patient was diuresed aggressively while in the hospital with Bumex IV and metolazone. H e appears euvolemic today and will be discharged home. at bedside. All questions answered and everything explained. He will need to wear CPAP at night as discussed in the hospital. He will also be set up with a walker. He is to follow-up with cardiology in 1 week and then again in 1 month. As per patient psoriasis he was given short-term steroids in the hospital. He does have silvery scaly appearing lesions on knees and legs. He states he would did have a high school admissions representative in the past and was on medication but then stopped taking it due to insurance issues. He will need to be set up with a new high school admissions representative. I have placed a referral for Dr. Guillen. Patient will be discharged on Entresto, spironolactone, potassium, carvedilol, Bumex 1 mg daily. Amlodipine has been stopped at this point. And his Lasix has also been stopped at this point. As per the 's request I sent a 30-day supply of all the medications he needs to his pharmacy. All questions were answered. Patient does seem to have chronic thrombocytopenia from recent few months. It is most likely secondary to the alcohol intake. He states he no longer drinks. I spent greater than 30 minutes on this discharge. Patient will be set up with a LifeVest at discharge. Physical Exam Narrative: EXAM NARRATIVE: General: Alert oriented x3, patient seen sitting up in bed breathing room air appearing comfortable. HEENT: Normocephalic, atraumatic, EOMI, Cardio: Regular rate rhythm, normal S1-S2, no murmurs rubs gallops, Respiratory: Good bilateral air entry, very mild crackles present right base. Band-Aid covering thoracentesis site. Patient does cough when takes a deep breath post procedure today. GI: Abdomen soft, nontender, nondistended, bowel sounds + Behavior: Appropriate and cooperative Extremities: Trace edema present lower extremities, no cyanosis Discharge Data Data Completed and Pending: Completed Studies During Hospitalization Category Date Time Status CT chest wo con 7 1250 Routine Cat Scan 02/19/21 15:02 Com[address] Stress Te st MIBI [Sestamibi Stress Test Reque st Exams 02/20/21 07:05 Draft ] Routine XR chest 1V alexy ble [id number] Stat Exams 02/17/21 09:18 Completed NM gary perf SPECT r/s* [id number] Routin e Nuc Med 02/20/21 00:08 [place] [id number] Routin e Ultrasound 02/18/21 17:28 Completed CV. echo complete * [id number] Routine Ultrasound 02/18/21 17:28 Completed Pending at discharge Category Date Time Status Bacterial Antigen Routine Lab 02/17/21 17:28 Uncollected Legionella Antige n STAT Routine Lab 02/17/21 17:28 Uncollected Labs from last 24 hours 02/20/21 02/20/21 02/20/21 11:14 06:01 04:36 WBC RBC Hgb Hct MCV MCH MCHC RDW Plt Count MPV Neut % (Auto) Lymph % (Auto) [place] % (Auto) Eos % (Auto) Baso % (Auto) Neut # (Auto) Lymph # (Auto) [place] # (Auto) Eos # (Auto) Baso # (Auto) Nucleated RBC % (a uto) Nucleated RBCs # Sodium 134 L Potassium 4.2 Chloride 94 L Carbon Dioxide 32 H Anion Gap 12.2 BUN 22 H Creatinine 0.8 GFR Calculation 100.7 Glucose 321 H POC Glucose 477 H 267 H Calculated Osmolal ity 294 Calcium 8.9 Magnesium 1.8 Triglycerides Cholesterol LDL Cholesterol, C alc HDL Cholesterol LDL/HDL Ratio Cholesterol/HDL Ra tom 02/20/21 02/19/21 02/19/21 04:36 20:43 17:03 WBC 5.6 RBC 5.30 Hgb 14.9 Hct 46.2 MCV 87.2 MCH 28.1 MCHC 32.3 RDW 15.4 H Plt Count 102 L MPV 12.7 H Neut % (Auto) 77.5 Lymph % (Auto) 13.9 [place] % (Auto) 8.0 Eos % (Auto) 0.0 Baso % (Auto) 0.2 Neut # (Auto) 4.36 Lymph # (Auto) 0.8 [place] # (Auto) 0.5 Eos # (Auto) 0.0 Baso # (Auto) 0.0 Nucleated RBC % (a uto) 0 Nucleated RBCs # 0.0 Sodium Potassium Chloride Carbon Dioxide Anion Gap BUN Creatinine GFR Calculation Glucose POC Glucose 279 H 326 H Calculated Osmolal ity Calcium Magnesium Triglycerides Cholesterol LDL Cholesterol, C alc HDL Cholesterol LDL/HDL Ratio Cholesterol/HDL Ra tom 02/19/21 04:14 WBC RBC Hgb Hct MCV MCH MCHC RDW Plt Count MPV Neut % (Auto) Lymph % (Auto) [place] % (Auto) Eos % (Auto) Baso % (Auto) Neut # (Auto) Lymph # (Auto) [place] # (Auto) Eos # (Auto) Baso # (Auto) Nucleated RBC % (a uto) Nucleated RBCs # Sodium Potassium Chloride Carbon Dioxide Anion Gap BUN Creatinine GFR Calculation Glucose POC Glucose Calculated Osmolal ity Calcium Magnesium Triglycerides 54 Cholesterol 135 LDL Cholesterol, C alc 61 HDL Cholesterol 63 LDL/HDL Ratio 0.97 Cholesterol/HDL Ra tom 2.14 Vitals: Last Vital Signs Temp 97.6 F 02/20/21 11:18 Pulse 100 02/20/21 11:18 Resp 16 02/20/21 11:18 BP 118/74 02/20/21 11:18 Pulse Ox 94 02/20/21 11:18 Discharge Plan Discharge Patient Disposition: Home Condition: Stable Prescriptions: New Klor-Con M20 20 mEq Tablet,Er Particles/Crystals 20 meq PO DAILY 30 Days Qty: 30 RF: 0 Entresto 24-26 mg Tablet 1 ea PO BID 30 Days Qty: 30 RF: 0 bumetanide 2 mg tablet 1 mg PO DAILY 30 Days Qty: 30 RF: 0 Continued hydroxyzine HCl 25 mg tablet 25 mg PO TID PRN (Reason: increased Anxiety) Qty: 90 RF: 5 carvedilol 6.25 mg tablet 6.25 mg PO BID 30 Days Qty: 60 RF: 0 spironolactone 25 mg tablet 50 mg PO DAILY 60 Days Qty: 30 RF: 0 Humalog U-100 Insulin 100 unit/mL solution 5 unit SUBCUT Q6H PRN (Reason: hyperglycemia) 30 Days Qty: 10 RF: 0 gabapentin 600 mg tablet 600 mg PO TID 30 Days Qty: 90 RF: 0 ropinirole 1 mg tablet 1 mg PO BID@09,22 30 Days Qty: 60 RF: 0 albuterol sulfate 2.5 mg /3 mL (0.083 %) solution for nebulization 2.5 mg inhalation Q4H PRN (Reason: shortness of breath or wheezing) 30 Days Qty: 90 RF: 0 albuterol sulfate 90 mcg/actuation HFA aerosol inhaler 2 puff inhalation Q4H PRN (Reason: shortness of breath or wheezing) 30 Days Qty: 8.5 RF: 3 Changed Lantus U-100 Insulin 100 unit/mL solution 45 unit SUBCUT BID@0900,2200 30 Days Qty: 15 RF: 0 Held aripiprazole 10 mg tablet 10 mg PO BEDTIME RF: 0 Hold Instructions: see PCP Discontinued amlodipine 10 mg tablet 10 mg PO DAILY Qty: 30 RF: 5 furosemide 40 mg tablet 40 mg PO BID RF: 0 potassium chloride 20 mEq tablet extended release 20 meq PO DAILY@0900 RF: 0 No Action (DME) CPAP machine & supplies See Rx Instructions .Route .MEDSUPPLY Qty: 1 RF: 5 Other Ambulatory Orders: Basic Metabolic Panel (Routine) Timeframe: 1 Week Facility: [facility] - Location: Lab - Main Lab Ordered By: Shae Fritz thoracentesis [id number] (Routine) Timeframe: 3 Days Facility: [facility] - Location: Radiology Ordered By: Shae Fritz DME: Life Vest (Order) Timeframe: 1 Day Location: None Selected Ordered By: Shae Fritz Referrals: [facility] [Outside] Timmy Guillen MD [Physician] - 2 weeks (Psoriasis. Was previously on treatment for it. Needs new high school admissions representative. SENT REFERRAL FOR APPOINTMENT) Demarcus Rivera MD [Primary Care Provider] - 02/28/21 9:00 am (NEEDS LAB BMP) Anali Gupta FNP [Nurse Practitioner] - 02/27/21 1:15 pm (Heart Failure APPOINTMENT WITH DR ABRAHAM IN HEART CARE HAS BEEN CANCELLED NEW APPOINTMENT IS WITH ANALI ISABEL) Discharge Diet: Cardiac and Low Salt Discharge Activity: Increase activity as tolerated Patient Instructions: Bumetanide (By mouth) (Bumex), Potassium Chloride (By mouth), Sacubitril/Valsartan (By mouth), Opioid Safety Activity Restrictions/Additional Instructions: FAXED FOR [facility] WILL CALL WITH APPOINTMENT APPOINTMENT FOR US [facility]TER WILL CALL WITH APPOINTMENT. NEEDS LAB BMP IN 1 WEEK AT APPOINTMENT WITH PCP. Discharge Attestations Time Spent in Discharge Care*: greater than 30 min Specific Discharge Activities: educating patient, educating and/or supporting family/caregiver, discussing with pcp/other providers, documenting/other paperwork and evaluating patient/reviewing data Status at Discharge: Cognitive status at discharge: cognitively intact , Behavioral status at discharge: cooperative , Functional status at discharge: uses cane/walker Overall status at discharge: patient is back to baseline Quality Metrics Clinical Quality Measures During this hospital stay, did patient experience: None Coding Level of Care Code Acute Chg FW DC note Diagnoses Acute on chronic systolic heart failure I50.23 Benign essential hypertension with target blood pressure below 140/90 I10 ISSA (obstructive sleep apnea) G47.33 Chronic atrial fibrillation I48.20 Diabetes E11.65; Z79.4 Diabetes mellitus complication status: with hyperglycemia Diabetes mellitus skilled nursing insulin use: with skilled nursing use Diabetes mellitus type: type 2 Pleural effusion J90 Non-ischemic cardiomyopathy I42.8
[2021-02-21] MEDS: ropinirole 1 mg Tablet PO (10:49)
[2021-02-21] MEDS: metOLazone 5 MG Tablet PO (10:49)
[2021-02-21] MEDS: sacubitril/valsartan 24-26 mg Tablet 1 EACH PO ×2 (10:49→17:08)
[2021-02-21] MEDS: spironolactone 25 mg Tablet 50 MG PO (10:50)
[2021-02-21] MEDS: gabapentin 300 mg Capsule 600 MG PO ×2 (10:50→14:41)
[2021-02-21] MEDS: potassium chloride ER 20 mEq Tablet PO (10:50)
[2021-02-21] MEDS: bumetanide 0.25 mg/mL SDV 10 mL 2 MG IVP (10:51)
[2021-02-21] MEDS: apixaban 5 mg Tablet PO ×2 (10:51→17:08)
[2021-02-21 11:27] LABS: Albumin Body Fluid 2.1 g/dL; LDH Pleural Fluid 84 U/L; Total Protein Pleural Fluid 3.1 g/dL
[2021-02-21 11:50] LABS: Glucose Point of Care 267 mg/dL (70-110)
[2021-02-21] MEDS: insulin lispro 100 unit/1 mL SUBCUT (12:42)
[2021-02-21] MEDS: insulin glargine 100 units/1 mL 45 UNIT SUBCUT (12:43)
[2021-02-21 17:00] LABS: Glucose Point of Care 465 mg/dL (70-110)
--- NOTE | 2021-02-21 18:10 | PC.NURSE ---
THIS NURSE ALONG WITH EVENT PROMOTER ALEXEI CALLED [employer] [employer] MULTIPLE TIMES TODAY IN ATTEMPT TO GET THE LIFE VEST PLACED ON PATIENT TODAY. ALL INFORMATION WAS GIVEN TO THE COMPANY AND MULTIPLE PHONE CALLS MADE. PATIENT BECAME VERY ANXIOUS TO BE DISCHARGED AND WANTED TO LEAVE. THIS NURSE NOTIFIED DR. CURTIS AND DR. SANTILLAN. DR. SANTILLAN STATED THE PATIENT COULD BE DISCHARGED LONG THE LIFE VEST WAS PLACED SOON. DR. CURTIS NOTIFIED. DISCHARGE ORDERS PLACED. DEVONTE ORTEGA CALLED BACK AND STATED A [employer] IN [facility] WOULD PLACE THE LIFE VEST TOMORROW MORNING. PATIENT AND PHYSICIANS UPDATED AT THIS TIME. MEDICATIONS SENT HOME WITH PATIENT. ALL QUESTIONS ANSWERED. PATIENT DISCHARGED HOME.
== END 2021-02-21 17:09 | disposition home or self-care (01) | DRG 291 ==
LOC: ER 13:09 → MEDSURG 15:42
PROVIDERS: Internal Medicine Critical Care Medicine; Physician Assistant; Admitting Provider Internal Medicine; Emergency Provider Family Medicine; PCP Family Medicine Adult Medicine; Visit Provider Internal Medicine
DX: I11.0 Hypertensive heart disease with heart failure (principal); I50.23 Acute on chronic systolic (congestive) heart failure; I48.20 Chronic atrial fibrillation, unspecified; G47.33 Obstructive sleep apnea (adult) (pediatric); E11.65 Type 2 diabetes mellitus with hyperglycemia; E11.40 Type 2 diabetes mellitus with diabetic neuropathy, unspecified; I42.8 Other cardiomyopathies; R06.00 Dyspnea, unspecified; D69.6 Thrombocytopenia, unspecified; L40.9 Psoriasis, unspecified; G25.81 Restless legs syndrome; T45.516A Underdosing of anticoagulants, initial encounter; Y63.6 Underdosing and nonadministration of necessary drug, medicament or biological substance; Z79.4 Long term (current) use of insulin; Z96.652 Presence of left artificial knee joint; Z91.19 Patient's noncompliance with other medical treatment and regimen; Z86.16 Personal history of COVID-19
CPT/HCPCS: 32554; 36415; 36416; 71045; 71250; 78452; 80048; 80053; 80061; 80500; 82042; 82945; 82962; 83036; 83615; 83735; 83880; 83986; 84145; 84157; 84484; 85025; 85730; 87070; 87075; 87205; 87426; 88112; 88305; 89050; 93005; 93017; 93306; 93970; 94660; 96372; 96374; 99285; A9500; G0378; J1815 ×2; J1940; J2785; J2920; J3490

== ENCOUNTER → 2021-03-02 14:24 | Outpatient (BNVA) | payer MEDICAID, SELFPAY | PROVIDERS: PCP Family Medicine Adult Medicine; Visit Provider Nurse Practitioner Family | DX: I42.8 Other cardiomyopathies (principal); Z09 Encounter for follow-up examination after completed treatment for conditions other than malignant neoplasm | CPT/HCPCS: 80048 ==

== ENCOUNTER 2021-03-15 12:57 | Outpatient (CLI) | payer MEDICAID, SELFPAY ==
--- NOTE | 2021-03-15 13:01 | XR_ITS ---
WS: [id number] CHEST 2 VIEWS HISTORY: Hx of pleural effusions COMPARISON: 02/21/2021 Lungs: Mild blunting of the RIGHT costophrenic angle consistent with a small effusion. Very slight im provement since the prior examination. No pneumonia. Normal vasculature. Cardiac size: Normal. Mediastinum/Aorta: Mild atherosclerosis aorta. Bones: Normal. XR/XR chest 2V* [id number] IMPRESSION: 1. Small residual RIGHT pleural effusion. Improved since the prior study. 2. No pneumonia.
== END 2021-03-15 12:58 | disposition home or self-care (01) ==
PROVIDERS: PCP Family Medicine Adult Medicine; Visit Provider Family Medicine Adult Medicine
DX: Z87.898 Personal history of other specified conditions (principal); J90 Pleural effusion, not elsewhere classified
CPT/HCPCS: 71046

== ENCOUNTER 2021-03-29 10:53 | Outpatient (CLI) | payer MEDICAID, SELFPAY ==
--- NOTE | 2021-03-29 10:56 | XR_ITS ---
WS: [id number] CHEST 2 VIEWS HISTORY: Weight gain and decreased RLL breath sounds COMPARISON: 03/15/2021 Lungs: Lung volumes are decreased. Mild pulmonary venous congestion. Small bilateral pleural effusion s. Cardiac size: Mildly enlarged cardiac silhouette. Mediastinum/Aorta: Mild atherosclerosis aorta. Bones: Mild anterior wedging of T10. XR/XR chest 2V* [id number] IMPRESSION: 1. Small bilateral pleural effusions and mild CHF. 2. No pneumonia.
== END 2021-03-29 10:54 | disposition home or self-care (01) ==
PROVIDERS: PCP Family Medicine Adult Medicine; Visit Provider Family Medicine Adult Medicine
DX: R63.5 Abnormal weight gain (principal); J90 Pleural effusion, not elsewhere classified; I50.9 Heart failure, unspecified
CPT/HCPCS: 71046; 80048; 81000; 85025

== ENCOUNTER → 2021-05-16 13:04 | Outpatient (BNVA) | payer MEDICAID, SELFPAY | PROVIDERS: PCP Family Medicine Adult Medicine; Visit Provider Nurse Practitioner Family | DX: Z20.822 Contact with and (suspected) exposure to COVID-19 (principal); Z20.828 Contact with and (suspected) exposure to other viral communicable diseases | CPT/HCPCS: 87635 ==

== ENCOUNTER 2022-08-15 23:49 | Emergency (ER) | payer MEDICAID, SELFPAY ==
[2022-08-15 23:58] VITALS: BP 147/112; PULSE 102; RESP 20; O2SAT 97
--- NOTE | 2022-08-15 23:58 | XRR_ITS ---
PROCEDURE INFORMATION: Exam: XR Right Hip Exam date and time: 08/16/2022 12:26 AM Age: 57 years old Clinical indication: Injury or trauma; Fall; Blunt trauma (contusions or hematomas); Right; Hip; Patient HX: Extreme restless leg syndrome. Unable to remain still for xrays TECHNIQUE: Imaging protocol: Radiologic exam of the right hip. Views: 1 view hip with pelvis when performed. COMPARISON: No relevant prior studies available. FINDINGS: Bones/joints: Unremarkable. No acute fracture. Soft tissues: Unremarkable. XR/XR hip RT 2-3V wo/w pel* [id number] IMPRESSION: 1. No acute findings. 2. If pain persists, CT may be helpful to rule out occult pathology if clinically indicated.
--- NOTE | 2022-08-15 23:58 | XRR_ITS ---
PROCEDURE INFORMATION: Exam: XR Chest Exam date and time: 08/16/2022 12:24 AM Age: 57 years old Clinical indication: Injury or trauma; Fall; Blunt trauma (contusions or hematomas); Additional info: Chf, dyspnea TECHNIQUE: Imaging protocol: Radiologic exam of the chest. Views: 1 view. COMPARISON: CR XR chest 2V* [id number] 03/29/2021 11:03 AM FINDINGS: Lungs: Mildly hyperaerated lungs consistent with deep inspiratory effort vs reactive airway disease vs mild COPD . Pleural spaces: Unremarkable. No pleural effusion. No pneumothorax. Heart/Mediastinum: Mild cardiomegaly. Bones/joints: Unremarkable. XR/XR chest 1V portable [id number] IMPRESSION: 1. Mild cardiomegaly. 2. Mildly hyperaerated lungs consistent with deep inspiratory effort vs reactive airway disease vs mild COPD .
--- NOTE | 2022-08-15 23:58 | XRR_ITS ---
PROCEDURE INFORMATION: Exam: XR Lumbosacral Spine Exam date and time: 08/16/2022 12:29 AM Age: 57 years old Clinical indication: Injury or trauma; Fall; Blunt trauma (contusions or hematomas); Patient HX: Extreme restless leg syndrome. Unable to remain still for xrays TECHNIQUE: Imaging protocol: Radiologic exam of the lumbosacral spine. Views: 2 or 3 views. COMPARISON: CR (PELVIS, ) 08/16/2022 12:26 AM FINDINGS: Bones/joints: 40% compression fracture of L1. Moderate L5-S1 degenerative disc disease and spondylosis. Soft tissues: Unremarkable. XR/XR lumbar spine 2-3V* [id number] IMPRESSION: 1. 40% compression fracture of L1. 2. Moderate L5-S1 degenerative disc disease and spondylosis.
--- NOTE | 2022-08-15 23:58 | W.ED.FALL ---
Documented by User: MAAME Talavera 08/16/22 02:52 HPI - Fall General: Chief Complaint: Fall Stated Complaint: Hip Pain\Legs and ABD Swollen Conjestive heart Fa Time Seen by Provider: 08/15/22 23:53 History of Present Illness: 57-year-old male patient comes in today for complaints of right hip pain secondary to tripping and fall at 8:00 this evening. Patient also reports some abdominal swelling and increased swelling to the lower extremities. Patient reports some shortness of breath but no chest pain. Patient does have chronic shortness of breath due to his congestive heart failure. Patient appears nontoxic. Patient appears in no mild to moderate pain. Associated symptoms-after fall: Denies chest pain or headache(s) Review of Systems General: Reports: 10 or more systems reviewed and unremarkable except in HPI and below Const: Denies: fever(s) Card: Denies: chest pain Resp: Reports: dyspnea GI: Denies: nausea or vomiting : Denies: difficulty urinating Musc: Reports: extremity swelling Skin/Breast: Denies: rash Neuro: Denies: headache(s) PFSH ED PFSH: Medical History (Updated 08/16/22 @ 03:04 by Alin Jacob MD) Alcohol abuse Anxiety and depression Benign essential hypertension with target blood pressure below 140/90 Cellulitis and abscess of finger, unspecified Closed supracondylar fracture of femur Congestive heart failure due to cardiomyopathy COVID Positive test 05/16/2021 COVID-19 Diabetes Erectile dysfunction Hyperlipidemia Insomnia Mood disorder Neuropathy Nose cellulitis ISSA (obstructive sleep apnea) Osteoarthritis Psoriasis Restless leg syndrome Syncope and collapse Thrombocytopenia UTI (urinary tract infection) Weight gain with edema Surgical History H/O knee surgery Hx of cardiac cath S/P total knee arthroplasty Left total knee arthroplasty utilizing the following [place] implants: A size 6 triathlon posterior stabilized press-fit left femoral component, a size 7 triathlon titanium tibial component, press-fit, a triathlon tibial bearing insert size 7 x 9 mm, and an asymmetric 38 mm x 11 mm patella Family History Father Cancer Lung Mother Cancer Brain Other Diabetes Hypertension Social History (Reviewed 08/03/21 @ 14:22 by BERNARD Underwood Smoking and tobacco status: never smoked Alcohol intake: current Alcohol intake frequency: holidays/special occasions only Household members: friend(s) Housing: Apartment Physical Exam Const: COMMON NORMALS: alert HENMT: COMMON NORMALS: normocephalic HEAD & SCALP: normocephalic Neck/C-Spine: COMMON NORMALS: full ROM Chest: COMMONS NORMALS: normal palpation of entire chest wall Resp: COMMON NORMALS: normal respiratory effort AUSCULTATION: diminished lung sounds Cardio: COMMON NORMALS: regular rate RATE: regular rate GI: COMMON NORMALS: Soft to palpation PALPATION: Yes Soft to palpation Extremity: NARRATIVE EXTREMITY EXAM: Bilateral lower extremity swelling Neuro: SENSORIUM/ORIENTATION: Yes alert Skin: COMMON NORMALS: turgor normal GENERAL SKIN EXAM: turgor normal Course ED course: 250, x-ray noted a fracture of the L1 about 40%. CT was then ordered and noticed some mild retropulsion. Consulted with Dr. Jacob to assume care of of this patient at the end of my shift. He has reached out to [facility] Surgery Department to discuss the abnormal CT finding. Patient's respirations are improved but continues to have pain in the right hip. Patient was updated on the abnormal findings on his x-rays. Vital Signs: Vital signs: Vital Signs Pulse Rate 102 H 08/15/22 23:58 Respiratory Rate 20 H 08/15/22 23:58 Blood Pressure 147/112 08/15/22 23:58 Pulse Oximetry 97 08/15/22 23:58 Oxygen Delivery Me thod Room Air 08/15/22 23:58 MDM - Fall Medical Decision Making Patient comes in for evaluation due to right hip pain and some increase difficulty breathing and feeling more swelling in the lower extremities and abdomen. Patient reports this afternoon he had tripped and fall and landed on his right hip. On exam patient has some swelling to bilateral lower extremities but nonpitting. Abdomen soft and nontender. Lungs are decreased in the bases. Heart rate is increased at 102, blood pressure was 147. Differential diagnoses include but not limited to contusion hip, fracture hip, exacerbation of CHF, peripheral edema. Lab Data 08/16/22 00:19 08/16/22 00:19 Radiology Impressions Chest X-Ray 08/15/22 23:58 IMPRESSION: 1. Mild cardiomegaly. 2. Mildly hyperaerated lungs consistent with deep inspiratory effort vs reactive airway disease vs mild COPD . Hip/Pelvis X-Ray 08/15/22 23:58 IMPRESSION: 1. No acute findings. 2. If pain persists, CT may be helpful to rule out occult pathology if clinically indicated. Lumbar Spine X-Ray 08/15/22 23:58 IMPRESSION: 1. 40% compression fracture of L1. 2. Moderate L5-S1 degenerative disc disease and spondylosis. Lumbar Spine CT 08/16/22 01:34 IMPRESSION: 1. Acute comminuted 40% compression fracture of L1 with 2 mm retropulsion of posterosuperior L1 vertebral body into the spinal canal. 2. Severe L4-L5 central spinal stenosis secondary to developmentally short pedicles, posterior disc bulge, facet hypertrophy, facet degenerative change and ligamentum flavum hypertrophy. 3. Mild L5-S1 central spinal stenosis with bilateral lateral recess stenosis. 4. Borderline right L5-S1 foraminal stenosis. Laboratory Results WBC 6.6 10^3/uL (4.0-10.0) 08/16/22 00:19 RBC 5.27 10^6/uL (4.1-5.3) 08/16/22 00:19 Hgb 15.7 g/dL (11.7-16.6) 08/16/22 00:19 Hct 47.2 % (42.0-52.0) 08/16/22 00:19 MCV 89.6 fl (80-94) 08/16/22 00:19 MCH 29.8 pg (28.0-34.0) 08/16/22 00:19 MCHC 33.3 g/dL (30.0-36.0) 08/16/22 00:19 RDW 14.0 % (12.1-15.1) 08/16/22 00:19 Plt Count 132 10^3/cmm (130-400) 08/16/22 00:19 MPV 11.5 fL (7.4-10.4) H 08/16/22 00:19 Neut % (Auto) 63.2 % 08/16/22 00:19 Lymph % (Auto) 23.4 % 08/16/22 00:19 [place] % (Auto) 11.1 % 08/16/22 00:19 Eos % (Auto) 1.4 % 08/16/22 00:19 Baso % (Auto) 0.6 % 08/16/22 00:19 Neut # (Auto) 4.16 10^3/uL (1.8-7.7) 08/16/22 00:19 Lymph # (Auto) 1.5 10^3/uL (0.8-4.8) 08/16/22 00:19 [place] # (Auto) 0.7 10^3/uL (0.2-0.9) 08/16/22 00:19 Eos # (Auto) 0.1 10^3/uL (0.0-0.8) 08/16/22 00:19 Baso # (Auto) 0.0 10^3/uL (0.0-0.1) 08/16/22 00:19 Nucleated RBC % (auto) 0 % 08/16/22 00:19 Nucleated RBCs # 0.0 /100WBC 08/16/22 00:19 Sodium 135 mmol/L (136-145) L 08/16/22 00:19 Potassium 3.9 mmol/L (3.5-5.1) 08/16/22 00:19 Chloride 98 mmol/L (98-107) 08/16/22 00:19 Carbon Dioxide 27 mmol/L (22-29) 08/16/22 00:19 Anion Gap 13.9 (5-19) 08/16/22 00:19 BUN 12 mg/dL (6-20) 08/16/22 00:19 Creatinine 0.9 mg/dL (0.7-1.2) 08/16/22 00:19 GFR Calculation 87.3 mL/min (90-130) L 08/16/22 00:19 Glucose 159 mg/dL (65-115) H 08/16/22 00:19 Calculated Osmolality 283 mOsm/kg (285-295) L 08/16/22 00:19 Calcium 9.0 mg/dL (8.5-10.5) 08/16/22 00:19 Total Bilirubin 1.5 mg/dL (0.15-1.2) H 08/16/22 00:19 AST 34 U/L (0-40) 08/16/22 00:19 ALT 22 U/L (0-41) 08/16/22 00:19 Alkaline Phosphatase 146 U/L (40-130) H 08/16/22 00:19 NT-Pro-B Natriuret Pep 5923 pg/mL (0-125) H 08/16/22 00:19 Total Protein 7.1 g/dL (6.6-8.7) 08/16/22 00:19 Albumin 3.9 g/dL (3.5-5.2) 08/16/22 00:19 Globulin 3.2 g/dL (1.3-4.6) 08/16/22 00:19 Discharge Plan Discharge Patient Disposition: Home Clinical Impression: Closed compression fracture of L1 vertebra Qualifiers: Encounter type: initial encounter Qualified Code(s): S32.010A - Wedge compression fracture of first lumbar vertebra, initial encounter for closed fracture Condition: Stable Prescriptions: New hydrocodone-acetaminophen 5-325 mg tablet 1 tab PO Q6H PRN (Reason: pain) Qty: 14 0RF No Action cbd oil buccal BEDTIME albuterol sulfate 2.5 mg /3 mL (0.083 %) solution for nebulization 2.5 mg inhalation Q4H PRN (Reason: shortness of breath or wheezing) 30 Days Qty: 90 5RF Rx Instructions: 340 B medication albuterol sulfate 90 mcg/actuation HFA aerosol inhaler 2 puff inhalation Q4H PRN (Reason: shortness of breath or wheezing) 30 Days Qty: 8.5 3RF Rx Instructions: 340 B diltiazem HCl 120 mg capsule,extended release 24 hr 120 mg PO DAILY Qty: 90 1RF Lantus U-100 Insulin 100 unit/mL solution 45 unit SUBCUT BID@0900,2200 30 Days Qty: 30 5RF Rx Instructions: 340 b Klor-Con M20 20 mEq tablet,ER particles/crystals 20 meq PO DAILY Qty: 90 1RF Rx Instructions: 340 B Entresto 24-26 mg tablet 1 tab PO BID 90 Days Qty: 180 1RF Rx Instructions: 340 B spironolactone 25 mg tablet 50 mg PO DAILY 90 Days Qty: 180 1RF Rx Instructions: 340B pregabalin 100 mg capsule 100 mg PO BID 30 Days Qty: 60 3RF Humalog U-100 Insulin 100 unit/mL solution 5 unit SUBCUT Q6H PRN (Reason: hyperglycemia) 30 Days Qty: 10 5RF Rx Instructions: administer with Insulin sliding scale 340 B (DME) CPAP machine & supplies See Rx Instructions .Route .MEDSUPPLY Qty: 1 5RF Rx Instructions: As directed quetiapine 50 mg tablet 50 mg PO DAILY Qty: 90 1RF sildenafil [Viagra] 25 mg tablet 25 mg PO DAILY Qty: 30 0RF Rx Instructions: 1 or 2 tablets one hour before activity citalopram 40 mg tablet 40 mg PO DAILY Qty: 90 1RF zaleplon 10 mg capsule 10 mg PO DAILY Qty: 90 1RF bumetanide 2 mg tablet 2 mg PO DAILY 90 Days Qty: 90 0RF ropinirole 1 mg tablet 1 mg PO BID@ Qty: 180 0RF carvedilol 12.5 mg tablet 12.5 mg PO BID Qty: 180 0RF Rx Instructions: must administer with a meal/food 340B Discharge Orders: Discharge ED (Routine); Ordered 08/16/22 Ordered By: Alin Jacob Other Ambulatory Orders: DME: Walker (Order) Location: None Selected Ordered By: Alin Jacob Referrals: Cy Mueller DO [Physician] - 1-3 days Demarcus Rivera MD [Primary Care Provider] - Discharge Diet: Advance as tolerated Discharge Activity: Resume usual activity Patient Instructions: Thoracolumbar Fracture (ED), Opioid Safety Coding Level of Care Code ED Elementary Classroom Teacher for Chg Fwd Documented by User: Alin Jacob MD 08/16/22 04:32 HPI - Fall General: Chief Complaint: Fall Stated Complaint: Hip Pain\Legs and ABD Swollen Conjestive heart Fa Time Seen by Provider: 08/15/22 23:53 PFSH ED PFSH: Medical History (Updated 08/16/22 @ 03:04 by Alin Jacob MD) Alcohol abuse Anxiety and depression Benign essential hypertension with target blood pressure below 140/90 Cellulitis and abscess of finger, unspecified Closed supracondylar fracture of femur Congestive heart failure due to cardiomyopathy COVID Positive test 05/16/2021 COVID-19 Diabetes Erectile dysfunction Hyperlipidemia Insomnia Mood disorder Neuropathy Nose cellulitis ISSA (obstructive sleep apnea) Osteoarthritis Psoriasis Restless leg syndrome Syncope and collapse Thrombocytopenia UTI (urinary tract infection) Weight gain with edema Surgical History H/O knee surgery Hx of cardiac cath S/P total knee arthroplasty Left total knee arthroplasty utilizing the following [place] implants: A size 6 triathlon posterior stabilized press-fit left femoral component, a size 7 triathlon titanium tibial component, press-fit, a triathlon tibial bearing insert size 7 x 9 mm, and an asymmetric 38 mm x 11 mm patella Family History Father Cancer Lung Mother Cancer Brain Other Diabetes Hypertension Social History Smoking and tobacco status: never smoked Alcohol intake: current Alcohol intake frequency: holidays/special occasions only Household members: friend(s) Housing: Apartment Course Vital Signs: Vital signs: Vital Signs Pulse Rate 102 H 08/15/22 23:58 Respiratory Rate 20 H 08/15/22 23:58 Blood Pressure 147/112 08/15/22 23:58 Pulse Oximetry 97 08/15/22 23:58 Oxygen Delivery Me thod Room Air 08/15/22 23:58 MDM - Fall Medical Decision Making Patient comes in for evaluation due to right hip pain and some increase difficulty breathing and feeling more swelling in the lower extremities and abdomen. Patient reports this afternoon he had tripped and fall and landed on his right hip. On exam patient has some swelling to bilateral lower extremities but nonpitting. Abdomen soft and nontender. Lungs are decreased in the bases. Heart rate is increased at 102, blood pressure was 147. Differential diagnoses include but not limited to contusion hip, fracture hip, exacerbation of CHF, peripheral edema. Patient presents here with a lumbar fracture he is ambulatory here he has no neurodeficits I spoke to Dr. Mueller patient was unable to fit into the TLSO brace we will get him follow-up within the next 2 to 4 days his pain is controlled here he is return if worsening he has no signs of any other injuries from his fall. Lab Data 08/16/22 00:19 08/16/22 00:19 Radiology Impressions Chest X-Ray 08/15/22 23:58 IMPRESSION: 1. Mild cardiomegaly. 2. Mildly hyperaerated lungs consistent with deep inspiratory effort vs reactive airway disease vs mild COPD . Hip/Pelvis X-Ray 08/15/22 23:58 IMPRESSION: 1. No acute findings. 2. If pain persists, CT may be helpful to rule out occult pathology if clinically indicated. Lumbar Spine X-Ray 08/15/22 23:58 IMPRESSION: 1. 40% compression fracture of L1. 2. Moderate L5-S1 degenerative disc disease and spondylosis. Lumbar Spine CT 08/16/22 01:34 IMPRESSION: 1. Acute comminuted 40% compression fracture of L1 with 2 mm retropulsion of posterosuperior L1 vertebral body into the spinal canal. 2. Severe L4-L5 central spinal stenosis secondary to developmentally short pedicles, posterior disc bulge, facet hypertrophy, facet degenerative change and ligamentum flavum hypertrophy. 3. Mild L5-S1 central spinal stenosis with bilateral lateral recess stenosis. 4. Borderline right L5-S1 foraminal stenosis. Laboratory Results WBC 6.6 10^3/uL (4.0-10.0) 08/16/22 00:19 RBC 5.27 10^6/uL (4.1-5.3) 08/16/22 00:19 Hgb 15.7 g/dL (11.7-16.6) 08/16/22 00:19 Hct 47.2 % (42.0-52.0) 08/16/22 00:19 MCV 89.6 fl (80-94) 08/16/22 00:19 MCH 29.8 pg (28.0-34.0) 08/16/22 00:19 MCHC 33.3 g/dL (30.0-36.0) 08/16/22 00:19 RDW 14.0 % (12.1-15.1) 08/16/22 00:19 Plt Count 132 10^3/cmm (130-400) 08/16/22 00:19 MPV 11.5 fL (7.4-10.4) H 08/16/22 00:19 Neut % (Auto) 63.2 % 08/16/22 00:19 Lymph % (Auto) 23.4 % 08/16/22 00:19 [place] % (Auto) 11.1 % 08/16/22 00:19 Eos % (Auto) 1.4 % 08/16/22 00:19 Baso % (Auto) 0.6 % 08/16/22 00:19 Neut # (Auto) 4.16 10^3/uL (1.8-7.7) 08/16/22 00:19 Lymph # (Auto) 1.5 10^3/uL (0.8-4.8) 08/16/22 00:19 [place] # (Auto) 0.7 10^3/uL (0.2-0.9) 08/16/22 00:19 Eos # (Auto) 0.1 10^3/uL (0.0-0.8) 08/16/22 00:19 Baso # (Auto) 0.0 10^3/uL (0.0-0.1) 08/16/22 00:19 Nucleated RBC % (auto) 0 % 08/16/22 00: Nucleated RBCs # 0.0 /100WBC 08/16/22 00:19 Sodium 135 mmol/L (136-145) L 08/16/22 00:19 Potassium 3.9 mmol/L (3.5-5.1) 08/16/22 00:19 Chloride 98 mmol/L (98-107) 08/16/22 00:19 Carbon Dioxide 27 mmol/L (22-29) 08/16/22 00:19 Anion Gap 13.9 (5-19) 08/16/22 00:19 BUN 12 mg/dL (6-20) 08/16/22 00:19 Creatinine 0.9 mg/dL (0.7-1.2) 08/16/22 00:19 GFR Calculation 87.3 mL/min (90-130) L 08/16/22 00:19 Glucose 159 mg/dL (65-115) H 08/16/22 00:19 Calculated Osmolality 283 mOsm/kg (285-295) L 08/16/22 00:19 Calcium 9.0 mg/dL (8.5-10.5) 08/16/22 00:19 Total Bilirubin 1.5 mg/dL (0.15-1.2) H 08/16/22 00:19 AST 34 U/L (0-40) 08/16/22 00:19 ALT 22 U/L (0-41) 08/16/22 00:19 Alkaline Phosphatase 146 U/L (40-130) H 08/16/22 00:19 NT-Pro-B Natriuret Pep 5923 pg/mL (0-125) H 08/16/22 00:19 Total Protein 7.1 g/dL (6.6-8.7) 08/16/22 00:19 Albumin 3.9 g/dL (3.5-5.2) 08/16/22 00:19 Globulin 3.2 g/dL (1.3-4.6) 08/16/22 00:19 Discharge Plan Discharge Patient Disposition: Home Clinical Impression: Closed compression fracture of L1 vertebra Qualifiers: Encounter type: initial encounter Qualified Code(s): S32.010A - Wedge compression fracture of first lumbar vertebra, initial encounter for closed fracture Condition: Stable Prescriptions: New hydrocodone-acetaminophen 5-325 mg tablet 1 tab PO Q6H PRN (Reason: pain) Qty: 14 0RF No Action cbd oil buccal BEDTIME albuterol sulfate 2.5 mg /3 mL (0.083 %) solution for nebulization 2.5 mg inhalation Q4H PRN (Reason: shortness of breath or wheezing) 30 Days Qty: 90 5RF Rx Instructions: 340 B medication albuterol sulfate 90 mcg/actuation HFA aerosol inhaler 2 puff inhalation Q4H PRN (Reason: shortness of breath or wheezing) 30 Days Qty: 8.5 3RF Rx Instructions: 340 B diltiazem HCl 120 mg capsule,extended release 24 hr 120 mg PO DAILY Qty: 90 1RF Lantus U-100 Insulin 100 unit/mL solution 45 unit SUBCUT BID@0900,2200 30 Days Qty: 30 5RF Rx Instructions: 340 b Klor-Con M20 20 mEq tablet,ER particles/crystals 20 meq PO DAILY Qty: 90 1RF Rx Instructions: 340 B Entresto 24-26 mg tablet 1 tab PO BID 90 Days Qty: 180 1RF Rx Instructions: 340 B spironolactone 25 mg tablet 50 mg PO DAILY 90 Days Qty: 180 1RF Rx Instructions: 340B pregabalin 100 mg capsule 100 mg PO BID 30 Days Qty: 60 3RF Humalog U-100 Insulin 100 unit/mL solution 5 unit SUBCUT Q6H PRN (Reason: hyperglycemia) 30 Days Qty: 10 5RF Rx Instructions: administer with Insulin sliding scale 340 B (DME) CPAP machine & supplies See Rx Instructions .Route .MEDSUPPLY Qty: 1 5RF Rx Instructions: As directed quetiapine 50 mg tablet 50 mg PO DAILY Qty: 90 1RF sildenafil [Viagra] 25 mg tablet 25 mg PO DAILY Qty: 30 0RF Rx Instructions: 1 or 2 tablets one hour before activity citalopram 40 mg tablet 40 mg PO DAILY Qty: 90 1RF zaleplon 10 mg capsule 10 mg PO DAILY Qty: 90 1RF bumetanide 2 mg tablet 2 mg PO DAILY 90 Days Qty: 90 0RF ropinirole 1 mg tablet 1 mg PO BID@09,22 Qty: 180 0RF carvedilol 12.5 mg tablet 12.5 mg PO BID Qty: 180 0RF Rx Instructions: must administer with a meal/food 340B Discharge Orders: Discharge ED (Routine); Ordered 08/16/22 Ordered By: Alin Jacob Other Ambulatory Orders: DME: Jonathan (Order) Location: None Selected Ordered By: Alin Jacob Referrals: Cy Mueller DO [Physician] - 1-3 days Demarcus Rivera MD [Primary Care Provider] - Discharge Diet: Advance as tolerated Discharge Activity: Resume usual activity Patient Instructions: Thoracolumbar Fracture (ED), Opioid Safety Coding Level of Care Code ED Elementary Classroom Teacher for Shreya Espinoza
[2022-08-16] MEDS: HYDROcodone-acetaminophen 10-325 mg Tablet 1 TAB PO (00:06)
[2022-08-16 00:33] LABS: Basophils % 0.6 %; Eosinophils # 0.1 10^3/uL (0.0-0.8); Eosinophils % 1.4 %; Hematocrit 47.2 % (42.0-52.0); Hemoglobin 15.7 g/dL (11.7-16.6); Lymphocytes # 1.5 10^3/uL (0.8-4.8); Lymphocytes % 23.4 %; Mean Corpuscular HGB Conc 33.3 g/dL (30.0-36.0); Mean Corpuscular Hemoglobin 29.8 pg (28.0-34.0); Mean Corpuscular Volume 89.6 fl (80-94); Mean Platelet Volume 11.5 fL (7.4-10.4); Monocytes # 0.7 10^3/uL (0.2-0.9); Monocytes % 11.1 %; Neutrophils # 4.16 10^3/uL (1.8-7.7); Neutrophils % 63.2 %; Nucleated Red Blood Cells % 0 %; Platelet Count 132 10^3/cmm (130-400); Red Blood Count 5.27 10^6/uL (4.1-5.3); White Blood Count 6.6 10^3/uL (4.0-10.0)
[2022-08-16 01:06] LABS: Alanine Aminotransferase 22 U/L (0-41); Albumin Level 3.9 g/dL (3.5-5.2); Alkaline Phosphatase 146 U/L (40-130); Anion Gap 13.9 (5-19); Aspartate Amino Transferase 34 U/L (0-40); Blood Urea Nitrogen 12 mg/dL (6-20); Carbon Dioxide 27 mmol/L (22-29); Chloride 98 mmol/L (98-107); Globulin 3.2 g/dL (1.3-4.6); Glomerular Filtration Rate 87.3 mL/min (90-130); Glucose 159 mg/dL (65-115); NT Pro B Type Natriuretic Pept 5923 pg/mL (0-125); Osmolality Calculated 283 mOsm/kg (285-295); Potassium 3.9 mmol/L (3.5-5.1); Sodium 135 mmol/L (136-145); Total Bilirubin 1.5 mg/dL (0.15-1.2); Total Protein 7.1 g/dL (6.6-8.7)
--- NOTE | 2022-08-16 01:34 | CTR_ITS ---
PROCEDURE INFORMATION: Exam: CT Lumbar Spine Without Contrast Exam date and time: 08/16/2022 2:04 AM Age: 57 years old Clinical indication: Injury or trauma; Fall; Blunt trauma (contusions or hematomas); Patient HX: Unable to move right leg; Additional info: Fracture vertebrae TECHNIQUE: Imaging protocol: Computed tomography of the lumbar spine without contrast. Radiation optimization: All CT scans at this facility use at least one of these dose optimization techniques: automated exposure control; mA and/or kV adjustment per patient size (includes targeted exams where dose is matched to clinical indication); or iterative reconstruction. REPORTING DATA: Count of CT and Cardiac NM exams in prior 12 months: This patient has received 0 known CTs and 0 known cardiac nuclear medicine studies in the 12 months prior to the current study. COMPARISON: CR (PELVIS, ) 08/16/2022 12:29 AM RADIATION DOSE METRICS: Total DLP (mGy-cm): 1674.41 FINDINGS: Bones/joints: Acute comminuted 40% compression fracture of L1 with 2 mm retropulsion of posterosuperior L1 vertebral body into the spinal canal. Posterior L2-L3 disc bulge. Mild retrospondylolisthesis of L3 on L4 with mild posterior disc bulge. Severe L4-L5 central spinal stenosis secondary to developmentally short pedicles, posterior disc bulge, facet hypertrophy, facet degenerative change and ligamentum flavum hypertrophy. Mild L5-S1 central spinal stenosis with bilateral lateral recess stenosis. Borderline right L5-S1 foraminal stenosis. Soft tissues: Unremarkable. CT/CT lumbar spine wo con* [id number] IMPRESSION: 1. Acute comminuted 40% compression fracture of L1 with 2 mm retropulsion of posterosuperior L1 vertebral body into the spinal canal. 2. Severe L4-L5 central spinal stenosis secondary to developmentally short pedicles, posterior disc bulge, facet hypertrophy, facet degenerative change and ligamentum flavum hypertrophy. 3. Mild L5-S1 central spinal stenosis with bilateral lateral recess stenosis. 4. Borderline right L5-S1 foraminal stenosis.
--- NOTE | 2022-08-16 01:35 | ECG_ITS ---
[facility] Test Date: 2022-08-16 Pat Name: Chun Webster Department: Room: Gender: Male Slash Trimmer: : 1965 Requested By: Nikolai Graham Order Number: [id number] [place] MD: Chai Rodriguez M.D. Measurements Intervals [place] Rate: 99 P: 0 ND: 0 QRS: -43 QRSD: 131 T: 152 QT: 386 QTc: 497 Interpretive Statements ATRIAL FIBRILLATION WITH ABERRANT CONDUCTION OR VENTRICULAR PREMATURE COMPLEXES LEFT AXIS DEVIATION [QRS AXIS < -30] INTRAVENTRICULAR CONDUCTION DELAY [130+ ms QRS DURATION] POSSIBLE LEFT VENTRICULAR HYPERTROPHY [VOLTAGE CRITERIA PLUS LAE OR QRS WIDENING] Compared to ECG 02/17/2021 12:47:53 Ventricular premature complex(es) now present Aberrant conduction of supraventricular beat(s) now present Myocardial infarct finding no longer present Electronically Signed On 08-17-2022 1:31:20 CDT by Chai Rodriguez M.D. [email or web address]
[2022-08-16] MEDS: FUROsemide 10 mg/mL SDV 10mL 80 MG IVP (01:39)
[2022-08-16] MEDS: ropinirole 1 mg Tablet PO (02:30)
[2022-08-16] MEDS: HYDROmorphone 1 mg/mL INJ 1 mL IVP (05:02)
--- NOTE | 2022-08-16 08:00 | DCPLANNER ---
Addendum entered by Yaritza Braxton 08/23/22 09:10: Patient had a follow up appointment scheduled with ortho - patient did not attend appointment. Addendum entered by Yaritza Braxton 08/17/22 07:42: Patient has a follow up appointment scheduled for Sunday, August 21, 2022 at 10:[address] Mueller at ortho. Original Note: manager cardiac cath had message to schedule a follow up appointment for patient with ortho. manager cardiac cath sent patients information to the front office staff at ortho. Patients information will be printed and reviewed. Clinic will call patient with appointment information.
== END 2022-08-16 05:27 | disposition home or self-care (01) ==
PROVIDERS: Nurse Practitioner Family; Emergency Provider Emergency Medicine; PCP Family Medicine Adult Medicine
DX: S32.010A Wedge compression fracture of first lumbar vertebra, initial encounter for closed fracture (principal); Z79.4 Long term (current) use of insulin; I11.0 Hypertensive heart disease with heart failure; I50.9 Heart failure, unspecified; E11.9 Type 2 diabetes mellitus without complications; E78.5 Hyperlipidemia, unspecified; W01.0XXA Fall on same level from slipping, tripping and stumbling without subsequent striking against object, initial encounter
CPT/HCPCS: 71045; 72100; 72131; 73502; 80053; 83880; 85025; 93005; 96374; 96375; 99285; J1170; J1940

== ENCOUNTER 2022-08-17 18:24 | Emergency (ER) | payer MEDICAID, SELFPAY ==
[2022-08-17 18:25] VITALS: BP 157/111; PULSE 102; RESP 18; TEMP 36.8; O2SAT 98
[2022-08-17 19:00] VITALS: BP 188/147; O2SAT 100
--- NOTE | 2022-08-17 19:19 | XRR_ITS ---
PROCEDURE INFORMATION: Exam: XR Chest Exam date and time: 08/17/2022 7:31 PM Age: 57 years old Clinical indication: Other: Weakness TECHNIQUE: Imaging protocol: Radiologic exam of the chest. Views: 1 view. COMPARISON: CR (CHEST, ) 08/16/2022 12:24 AM FINDINGS: Lungs: Unremarkable. No consolidation. Pleural spaces: Unremarkable. No pleural effusion. No pneumothorax. Heart/Mediastinum: Unchanged cardiomegaly. Bones/joints: No acute abnormality. XR/XR chest 1V portable [id number] IMPRESSION: No acute findings.
[2022-08-17 19:30] VITALS: BP 188/129; O2SAT 100
[2022-08-17 19:51] LABS: Ketone (Acetest) Serum Negative (Negative)
[2022-08-17 20:00] VITALS: BP 162/115; O2SAT 96
[2022-08-17 20:19] LABS: Glucose Urine UA 4+ (Normal); Protein Urine Neg (Negative); Specific Gravity, Urine 1.015 (1.005-1.030); Urine Appearance Clear (CLEAR); Urine Color Yellow (Yellow); pH Urine 7 (5-7)
[2022-08-17 20:20] LABS: Add Urine Microscopic? YES; Bilirubin Urine Neg (Negative); Blood Urine Neg (Negative); Ketones Urine Negative (Negative); Leukocyte Esterase Urine Trace (Negative); Nitrate Urine Negative (Negative); Urobilinogen Urine 12 mg/dL (Negative)
[2022-08-17 20:21] LABS: Bacteria Urine TRACE /hpf; Mucus Urine TRACE /hpf; RBC Urine 0-4 /hpf (0-2); Squamous Epithelial Cell Urine 0-4 /hpf (0-5); WBC Urine 0-4 /hpf (0-5)
[2022-08-17] MEDS: lisinopril 20 mg Tablet PO (20:29)
[2022-08-17] MEDS: amlodipine 10 mg Tablet PO (20:29)
[2022-08-17] MEDS: labetalol 5 mg/mL SDV 20mL 20 MG IVP (20:33)
[2022-08-17 20:47] LABS: Basophils % 0.9 %; Eosinophils # 0.1 10^3/uL (0.0-0.8); Eosinophils % 1.4 %; Hematocrit 43.4 % (42.0-52.0); Hemoglobin 14.3 g/dL (11.7-16.6); Lymphocytes # 0.8 10^3/uL (0.8-4.8); Lymphocytes % 22.7 %; Mean Corpuscular HGB Conc 32.9 g/dL (30.0-36.0); Mean Corpuscular Hemoglobin 29.7 pg (28.0-34.0); Mean Platelet Volume 11.2 fL (7.4-10.4); Monocytes # 0.3 10^3/uL (0.2-0.9); Monocytes % 8.8 %; Neutrophils # 2.33 10^3/uL (1.8-7.7); Neutrophils % 66.2 %; Nucleated Red Blood Cells % 0 %; Platelet Count 89 10^3/cmm (130-400); Red Blood Count 4.82 10^6/uL (4.1-5.3); Red Cell Distribution Width 13.5 % (12.1-15.1); White Blood Count 3.5 10^3/uL (4.0-10.0)
[2022-08-17 21:25] LABS: Alanine Aminotransferase 23 U/L (0-41); Albumin Level 3.9 g/dL (3.5-5.2); Alkaline Phosphatase 182 U/L (40-130); Anion Gap 12.7 (5-19); Aspartate Amino Transferase 30 U/L (0-40); Blood Urea Nitrogen 10 mg/dL (6-20); C Reactive Protein 8.1 mg/L (0.0-4.9); Calcium 8.6 mg/dL (8.5-10.5); Carbon Dioxide 29 mmol/L (22-29); Chloride 100 mmol/L (98-107); Creatinine Clr Calc Pharmacy 169.1707; Globulin 2.9 g/dL (1.3-4.6); Glomerular Filtration Rate 116.7 mL/min (90-130); Glucose 243 mg/dL (65-115); Magnesium 1.9 mg/dL (1.7-2.3); NT Pro B Type Natriuretic Pept 3284 pg/mL (0-125); Osmolality Calculated 293 mOsm/kg (285-295); Potassium 3.7 mmol/L (3.5-5.1); Sodium 138 mmol/L (136-145); Total Bilirubin 1.2 mg/dL (0.15-1.2); Total Protein 6.8 g/dL (6.6-8.7)
[2022-08-17 21:32] LABS: Alcohol Level < 10 mg/dL (0-10)
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
== END 2022-08-17 23:30 | disposition home or self-care (01) ==
PROVIDERS: Emergency Provider Emergency Medicine; PCP Family Medicine Adult Medicine
DX: E11.9 Type 2 diabetes mellitus without complications (principal); Z79.4 Long term (current) use of insulin; I11.0 Hypertensive heart disease with heart failure; I50.9 Heart failure, unspecified; E78.5 Hyperlipidemia, unspecified
CPT/HCPCS: 36415; 71045; 80053; 80307; 81001; 82009; 83735; 83880; 85025; 86140; 96374; 99284; J3490

== ENCOUNTER 2022-08-18 00:29 | Inpatient (IN) | payer MEDICAID, SELFPAY ==
[2022-08-18 00:51] VITALS: BP 138/78; PULSE 99; RESP 18; TEMP 36.4; O2SAT 98; BMI 35.2
--- NOTE | 2022-08-18 01:18 | W.ED.PSYCHS ---
HPI - Psych General: Chief Complaint: Psychiatric Symptoms Stated Complaint: SI Time Seen by Provider: 08/18/22 01:07 Source: patient History of Present Illness: 57-year-old male seen by me earlier this evening. He rechecks into the emergency department. He was discharged, being medically stable previously this evening. He states that he tried to call his son, to come get him. He notes that his son told him that he was not going to come get him, and that the patient was worthless . He represents to the emergency department mildly agitated, depressed, and stating that he is having thoughts about harming himself. MD complaint: suicidal ideation and feels depressed Onset (ago): hour(s) Duration: constant History of same: No Relieving factors: none Exacerbating factors: other Context: significant life stressor Associated psychiatric symptoms: depression and suicidal ideation Associated symptoms: Reports depression; Deny auditory hallucinations, visual hallucinations or homicidal ideation Treatments prior to arrival: none If self harm: admits thoughts of self harm Review of Systems Const: Denies: fever(s) ENMT: Denies: throat pain Card: Denies: chest pain or palpitations Resp: Reports: dyspnea (Chronic); Denies: productive cough or non-productive cough GI: Denies: abdominal pain or vomiting : Denies: difficulty urinating Musc: Reports: back pain (Chronic) Psych: Reports: depression; Denies: visual hallucinations, auditory hallucinations or homicidal ideation [facility] ED PFSH: Medical History Alcohol abuse Anxiety and depression Benign essential hypertension with target blood pressure below 140/90 Cellulitis and abscess of finger, unspecified Closed supracondylar fracture of femur Congestive heart failure due to cardiomyopathy COVID Positive test 05/16/2021 COVID-19 Diabetes Erectile dysfunction Hyperlipidemia Insomnia Mood disorder Neuropathy Nose cellulitis ISSA (obstructive sleep apnea) Osteoarthritis Psoriasis Restless leg syndrome Syncope and collapse Thrombocytopenia UTI (urinary tract infection) Weight gain with edema Surgical History H/O knee surgery Hx of cardiac cath S/P total knee arthroplasty Left total knee arthroplasty utilizing the following [place] implants: A size 6 triathlon posterior stabilized press-fit left femoral component, a size 7 triathlon titanium tibial component, press-fit, a triathlon tibial bearing insert size 7 x 9 mm, and an asymmetric 38 mm x 11 mm patella Family History Father Cancer Lung Mother Cancer Brain Other Diabetes Hypertension Social History Smoking and tobacco status: never smoked Alcohol intake: current Alcohol intake frequency: holidays/special occasions only Substance/Drug Use: never Household members: friend(s) Housing: Apartment Physical Exam Const: GENERAL APPEARANCE: cooperative and anxious; not ill appearing and not frail appearing HENMT: COMMON NORMALS: normocephalic, atraumatic and Normal external nose present HEAD & SCALP: normocephalic and atraumatic FACE & SINUS: normal facial exam and face symmetric NOSE: Normal external nose present Eye: COMMON NORMALS: Equal, round and reactive pupils present and EOMs intact bilaterally PUPIL: Yes Equal, round and reactive pupils present Neck/C-Spine: GENERAL: Yes trachea midline Chest: CHEST: Yes Symmetrical chest wall rise Resp: COMMON NORMALS: normal respiratory effort, No retractions, No use of accessory muscles and clear to auscultation bilaterally AUSCULTATION: clear to auscultation bilaterally Cardio: COMMON NORMALS: regular rate and regular rhythm RATE: regular rate RHYTHM: regular rhythm GI: COMMON NORMALS: Normal to inspection, nondistended, normoactive bowel sounds present Extremity: NARRATIVE EXTREMITY EXAM: Changes related to stasis dermatitis GENERAL: Yes edema (Minimal) Neuro: DRISS COMA SCALE: document GCS findings [place] coma scale eye opening: Spontaneous [place] coma scale verbal response: Orientated Driss coma scale motor response: Obey commands Driss coma scale total score: 15 SENSORY EXAM: Yes extremities (intact) Psych: COMMON NORMALS: speech normal ATTITUDE: Yes agitated (Mildly) and No aggressive SPEECH: Yes normal speech Skin: COMMON NORMALS: no rashes or lesions noted GENERAL SKIN EXAM: no rashes or lesions noted Course Consultations: Consultation #1: Mario Vital Signs: Vital signs: Vital Signs Temperature 97.5 F L 08/18/22 00:51 Pulse Rate 99 08/18/22 00:51 Respiratory Rate 18 08/18/22 00:51 Blood Pressure 138/78 08/18/22 00:51 Pulse Oximetry 98 08/18/22 00:51 Oxygen Delivery Me thod Room Air 08/18/22 00:51 MDM - Psych Medical Decision Making Discussed the patient's presentation with psychiatry service. This patient has not been here frequently. He was admitted 1 time in 2020. He has not been using alcohol. His alcohol level is less than 10. He is out of his medications. These were prescribed for him. He is given his nighttime medication here in the ER. Psychiatry agrees to observe the patient, and evaluate later this more for any need for further treatment, etc. He will be placed on a sliding scale of insulin there in the NPU. This most of his home medications were ordered for him. Discharge Plan Discharge Patient Disposition: Placed in Observation Clinical Impression: Suicidal ideation, Depression Coding Level of Care Code ED Export Sales Manager for Shreya Espinoza
[2022-08-18] MEDS: quetiapine 25 mg Tablet 50 MG PO (01:42)
[2022-08-18] MEDS: ropinirole 1 mg Tablet PO ×3 (01:43→22:19)
[2022-08-18] MEDS: gabapentin 100 mg Capsule PO (01:43)
[2022-08-18] MEDS: insulin glargine 100 units/1 mL 50 UNIT SUBCUT (02:31)
[2022-08-18 02:36] LABS: Glucose Point of Care 246 mg/dL (70-110)
[2022-08-18 03:01] VITALS: BP 144/63; PULSE 97; RESP 18; O2SAT 95
[2022-08-18 03:08] LABS: Acetaminophen < 5.0 ug/mL (10-30); Salicylate < 0.3 mg/dL (3-10)
[2022-08-18] MEDS: oxyCODONE-APAP 5-325 mg Tablet 2 TAB PO (03:18)
[2022-08-18 03:25] VITALS: BP 146/92; PULSE 100; RESP 18; TEMP 36.8; O2SAT 94
[2022-08-18 06:00] VITALS: RESP 15
[2022-08-18 07:37] LABS: Glucose Point of Care 164 mg/dL (70-110)
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
[2022-08-18] MEDS: insulin lispro 100 unit/1 mL SUBCUT ×4 (08:54→22:08)
[2022-08-18] MEDS: pregabalin 100 mg Capsule PO ×2 (08:55→17:47)
[2022-08-18] MEDS: sacubitril/valsartan 24-26 mg Tablet 1 EACH PO ×2 (09:30→17:47)
[2022-08-18 11:57] LABS: Glucose Point of Care 187 mg/dL (70-110)
[2022-08-18 14:00] VITALS: RESP 18
[2022-08-18 17:45] LABS: Glucose Point of Care 206 mg/dL (70-110)
[2022-08-18 21:09] LABS: Glucose Point of Care 175 mg/dL (70-110)
--- NOTE | 2022-08-18 21:55 | XRR_ITS ---
PROCEDURE INFORMATION: Exam: XR Chest Exam date and time: 08/18/2022 9:16 PM Age: 57 years old Clinical indication: Shortness of breath; Additional info: SOB TECHNIQUE: Imaging protocol: Radiologic exam of the chest. Views: 1 view. COMPARISON: CR (CHEST, ) 08/17/2022 7:31 PM FINDINGS: Lungs: Lungs are clear bilaterally. Pleural spaces: No pleural effusion. No pneumothorax. Heart/Mediastinum: Stable moderate enlargement of the cardiac silhouette. Mediastinal contours are unremarkable. Bones/joints: Unremarkable for age. XR/XR chest 1V portable [id number] IMPRESSION: 1. No acute cardiopulmonary process. 2. Incidental/nonacute findings are listed in the report.
[2022-08-18 22:00] VITALS: BP 150/106; PULSE 99; RESP 18; TEMP 36.7; O2SAT 96
[2022-08-18] MEDS: carvedilol 6.25 mg Tablet 12.5 MG PO (22:30)
[2022-08-18] MEDS: spironolactone 25 mg Tablet PO (22:30)
[2022-08-18] MEDS: potassium chloride ER 20 mEq Tablet PO (22:30)
[2022-08-18] MEDS: bumetanide 1 mg Tablet 2 MG PO (22:42)
[2022-08-18 22:48] LABS: Basophils % 0.8 %; Eosinophils % 1.1 %; Hematocrit 42.8 % (42.0-52.0); Hemoglobin 14.1 g/dL (11.7-16.6); Lymphocytes % 26.2 %; Mean Corpuscular HGB Conc 32.9 g/dL (30.0-36.0); Mean Corpuscular Hemoglobin 29.9 pg (28.0-34.0); Mean Corpuscular Volume 90.7 fl (80-94); Monocytes # 0.3 10^3/uL (0.2-0.9); Monocytes % 8.5 %; Neutrophils # 2.31 10^3/uL (1.8-7.7); Neutrophils % 63.1 %; Nucleated Red Blood Cells % 0 %; Platelet Count 93 10^3/cmm (130-400); Red Blood Count 4.72 10^6/uL (4.1-5.3); Red Cell Distribution Width 13.7 % (12.1-15.1); White Blood Count 3.7 10^3/uL (4.0-10.0)
[2022-08-18] MEDS: hyDROXYzine 25 mg Capsule 50 MG PO (22:49)
--- NOTE | 2022-08-18 22:54 | ECG_ITS ---
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 Measurements Intervals [place] Rate: 89 P: 0 LA: 0 QRS: -47 QRSD: 120 T: 149 QT: 384 QTc: 468 Interpretive Statements ATRIAL FIBRILLATION WITH ABERRANT CONDUCTION OR VENTRICULAR PREMATURE COMPLEXES LEFT ANTERIOR FASCICULAR BLOCK [QRS AXIS <= -45, QR IN I, RS IN II] POSSIBLE LEFT VENTRICULAR HYPERTROPHY [VOLTAGE CRITERIA PLUS LAE OR QRS WIDENING] ST DEVIATION AND MODERATE T-WAVE ABNORMALITY, CONSIDER LATERAL ISCHEMIA [-0.1+ mV T-WAVE IN I/aVL/V5/V6] Compared to ECG 08/16/2022 01:35:57 Left anterior fascicular block now present T-wave abnormality now present Possible ischemia now present Left-axis deviation no longer present Intraventricular conduction delay no longer present Electronically Signed On 08-19-2022 9:43:21 CDT by Daryn Benitez M.D. [id number]
[2022-08-18 22:58] LABS: Troponin(5th) Baseline 12 ng/L (0-15)
[2022-08-18 23:06] LABS: NT Pro B Type Natriuretic Pept 1732 pg/mL (0-125); Procalcitonin 0.08 ng/mL (0-0.5)
--- NOTE | 2022-08-18 23:13 | PM.CONSULT ---
Providers/Reason For Consult Consulting Physician/Specialty*: Psychiatry Reason for Consult*: CHF exacerbation Attending Physician: Suresh Martin MD Primary Care Provider: Demarcus Rivera MD History of Present Illness History of Present Illness Chun Webster Jr is a 57 year old male with a past medical history of atrial fibrillation not on anticoagulation? History of heart failure with reduced ejection fraction on Entresto, 6 hypertension, hyperlipidemia, insulin dependent type 2 diabetes mellitus, anxiety and depression, who presents [facility] for suicidal ideation. I was called to neuropsychiatric unit for rapid response, as patient was complaining of shortness of breath, currently he is in a wheelchair, on room air, saturating in the high 90s, normotensive, no significant tachycardia, pulse irregular, he complains of shortness of breath, shortness of breath with minimal exertion and at rest, denies a history of smoking, does report history of CHF, he has not been getting his Bumex here, denies any chest pain, no palpitations, no lightheadedness, no dizziness. He is in a wheelchair I it when asked him why, he tells me he has had a L1 vertebral compression fracture, which was sustained by falling on 08/15/2022 out of bed, Review of Systems General: Reports: ROS unobtainable due to mental status Const: Denies: fever(s) Card: Denies: chest pain Resp: Reports: dyspnea GI: Denies: abdominal pain : Denies: flank pain Medications/Allergies Home Medications Medication Instructions Recorded Confirmed Last Taken Type CPAP machine & supplies #1 ea 01/20/21 08/03/21 Unknown Rx cbd oil buccal BEDTIME 03/29/21 08/03/21 Unknown History albuterol sulfate 2.5 mg/3 mL 2.5 mg (3 mL) inhalation Q4H PRN 08/03/21 08/03/21 Unknown Rx (0.083 %) solution for nebulization shortness of breath or wheezing 30 days #90 mL sildenafil 25 mg tablet (Viagra) 25 mg PO DAILY SD #30 tabs 08/04/21 Unknown Rx hydrocodone 5 mg-acetaminophen 325 1 tab PO Q6H PRN pain #14 tabs 08/16/22 Unknown Rx mg tablet albuterol sulfate 90 mcg/actuation 2 puff inhalation Q4H PRN 08/17/22 Unknown Rx aerosol inhaler shortness of breath or wheezing 30 days #8.5 grams bumetanide 2 mg tablet 2 mg PO DAILY Heart failure 90 08/17/22 Unknown Rx days #30 tabs carvedilol 12.5 mg tablet 12.5 mg PO BID BP & Atrial Fib #60 08/17/22 Unknown Rx tabs citalopram 40 mg tablet 40 mg PO DAILY #30 tabs 08/17/22 Unknown Rx diltiazem HCl 120 mg capsule,24 120 mg PO DAILY #30 caps 08/17/22 Unknown Rx hr,extended release insulin glargine 100 unit/mL 45 unit (0.45 mL) SUBCUT 08/17/22 Unknown Rx subcutaneous solution BID@0900,2200 Diabetes 30 days #30 mL insulin lispro 100 unit/mL 5 unit (0.05 mL) SUBCUT Q6H PRN 08/17/22 Unknown Rx subcutaneous solution hyperglycemia 30 days #10 mL potassium chloride 20 mEq 20 meq PO DAILY Potassium 08/17/22 Unknown Rx tablet,extended release(part/cryst) replacement #30 tabs pregabalin 100 mg capsule 100 mg PO BID chronic Pain 30 days 08/17/22 Unknown Rx #60 caps quetiapine 50 mg tablet 50 mg PO DAILY #90 tabs 08/17/22 Unknown Rx ropinirole 1 mg tablet 1 mg PO BID@, #180 tabs 08/17/22 Unknown Rx sacubitril 24 mg-valsartan 26 mg 1 tab PO BID 90 days #30 tabs 08/17/22 Unknown Rx tablet (Entresto) spironolactone 25 mg tablet 50 mg PO DAILY 90 days #30 tabs 08/17/22 Unknown Rx zaleplon 10 mg capsule 10 mg PO DAILY Mental Health #30 08/17/22 Unknown Rx caps Allergies Allergy/AdvReac Type Severity Reaction Status Date / Time trazodone Allergy Unknown Verified 08/17/22 18:31 Current Medications Generic Name Dose Route Start Last Admin Trade Name Freq PRN Reason Stop Dose Admin Carvedilol 12.5 mg 08/18/22 22:15 08/18/22 22:30 Carvedilol 6.25 Mg Tablet PO 12.5 mg Q12H [place] Administration Hydroxyzine Pamoate 50 mg 08/18/22 03:25 08/18/22 22:49 Hydroxyzine 25 Mg Capsule PO 50 mg Q6H PRN Administration ANXIETY Insulin Human Lispro 0 unit 08/18/22 08:00 08/18/22 22:08 Insulin Lispro 100 Unit/1 Ml SUBCUT 4 unit WM&BEDTIME [place] Administration Protocol Pregabalin 100 mg 08/18/22 09:00 08/18/22 17:47 Pregabalin 100 Mg Capsule PO 100 mg BID [place] Administration Ropinirole HCl 1 mg 08/18/22 09:00 08/18/22 22:19 Ropinirole 1 Mg Tablet PO 1 mg BID@ [place] Administration Sacubitril/Valsartan 1 each 08/18/22 09:00 08/18/22 17:47 Sacubitril/Valsartan 24-26 Mg Tablet PO 1 each BID [place] Administration Spironolactone 25 mg 08/18/22 22:00 08/18/22 22:30 Spironolactone 25 Mg Tablet PO 25 mg Q12H [place] Administration PFSH Acute PFSH: Medical History Alcohol abuse Anxiety and depression Benign essential hypertension with target blood pressure below 140/90 Cellulitis and abscess of finger, unspecified Closed supracondylar fracture of femur Congestive heart failure due to cardiomyopathy COVID Positive test 05/16/2021 COVID-19 Diabetes Erectile dysfunction Hyperlipidemia Insomnia Mood disorder Neuropathy Nose cellulitis ISSA (obstructive sleep apnea) Osteoarthritis Psoriasis Restless leg syndrome Syncope and collapse Thrombocytopenia UTI (urinary tract infection) Weight gain with edema Surgical History H/O knee surgery Hx of cardiac cath S/P total knee arthroplasty Left total knee arthroplasty utilizing the following Aman implants: A size 6 triathlon posterior stabilized press-fit left femoral component, a size 7 triathlon titanium tibial component, press-fit, a triathlon tibial bearing insert size 7 x 9 mm, and an asymmetric 38 mm x 11 mm patella Family History Father Cancer Lung Mother Cancer Brain Other Diabetes Hypertension Social History Smoking and tobacco status: never smoked Alcohol intake: current Alcohol intake frequency: holidays/special occasions only Substance/Drug Use: never Household members: friend(s) Housing: Apartment Vitals/I&O/Wt Last Vital Signs Temp 98.2 F 08/18/22 03:25 Pulse 100 08/18/22 03:25 Resp 18 08/18/22 14:00 BP 146/92 08/18/22 03:25 Pulse Ox 94 08/18/22 03:25 O2 Del Method Room Air 08/18/22 03:26 Weight last 48 hrs Weight 127.913 kg Physical Exam Const: COMMON NORMALS: no acute distress and patient oriented x3 Eye: COMMON NORMALS: Equal, round and reactive pupils present and EOMs intact bilaterally PUPIL: Yes Equal, round and reactive pupils present Neck/C-Spine: COMMON NORMALS: no lymphadenopathy Lymph: LYMPHATIC: no lymphadenopathy noted Resp: COMMON NORMALS: normal respiratory effort, No retractions and No use of accessory muscles AUSCULTATION: crackles Cardio: COMMON NORMALS: regular rate, regular rhythm, S1 normal heart sound present and S2 normal heart sound present RATE: regular rate RHYTHM: regular rhythm HEART SOUNDS: S1 normal heart sound present and S2 normal heart sound present GI: COMMON NORMALS: Normal to inspection, nondistended, normoactive bowel sounds present and non-tender Extremity: COMMON NORMALS: no pedal edema Neuro: COMMON NORMALS: patient oriented x3, CN's II-XII intact bilaterally and moves all extremities Psych: COMMON NORMALS: mental status grossly normal Data 08/18/22 22:16 08/18/22 22:16 A&P Assessment and plan (1) CHF exacerbation: (2) Hyponatremia: (3) Closed compression fracture of L1 vertebra: Qualifiers: Encounter type: initial encounter Qualified Code(s): S32.010A - Wedge compression fracture of first lumbar vertebra, initial encounter for closed fracture (4) Thrombocytopenia: (5) ISSA (obstructive sleep apnea): (6) Non-ischemic cardiomyopathy: (7) Chronic atrial fibrillation: Plan Acute systolic CHF exacerbation -Currently I think we can manage him in the neuropsychiatric unit, as he is not requiring any oxygen, O2 sats on room air were in the high 90s, does have crackles on exam, but no evidence of respiratory distress -We will give him 2 mg of Bumex tonight -Renew Aldactone 25 mg every 12 hours -Start Bumex 1 mg twice daily tomorrow with potassium replacement -Resume his home Coreg, diltiazem -Follow his creatinine, potassium -He has not seen cardiology in over 2 years, repeat cardiac echo -Serial EKGs serial troponins Atrial fibrillation -Not in RVR -Resume his home Coreg, diltiazem -Denies a history of GI bleeds, not sure why his Eliquis was on Eliquis will, resume Eliquis 5 mg twice daily Hyponatremia, likely secondary to CHF exacerbation, monitor Chronic thrombocytopenia, HIV, acute hep panel Type 2 diabetes mellitus -When he came in overnight he received 50 units of glargine, is not on any long-acting here, is on a sliding scale -Start glargine 20 units twice daily -Continue sliding scale -Accu-Cheks -Check A1c Check serum alcohol level, does have a right hand tremor L1 vertebral compression fracture CT shows 1. ? Acute comminuted 40% compression fracture of L1 with 2 mm retropulsion of posterosuperior L1 vertebral body into the spinal canal. 2. ? Severe L4-L5 central spinal stenosis secondary to developmentally short pedicles, posterior disc bulge, facet hypertrophy, facet degenerative change and ligamentum flavum hypertrophy. 3. ? Mild L5-S1 central spinal stenosis with bilateral lateral recess stenosis. 4. ? Borderline right L5-S1 foraminal stenosis. -Currently he is in a wheelchair -We will have PT OT work with him -Hydrocodone to be sparingly for pain control -We will have to discuss with Dr. Mueller in the morning, consider TLSO brace Spinal stenosis, as above Hypertension as above We will need to follow-up with cardiology and primary care ? Consult Attestations Medical Necessity Statement: Patient requires hospitalization, for acute systolic CHF exacerbation, hyponatremia, L1 vertebral compression fracture, A-fib, type 2 diabetes mellitus Diagnoses CHF exacerbation I50.9 Hyponatremia E87.1 Closed compression fracture of L1 vertebra S32.010A Encounter type: initial encounter Thrombocytopenia D69.6 ISSA (obstructive sleep apnea) G47.33 Non-ischemic cardiomyopathy I42.8 Chronic atrial fibrillation I48.20
[2022-08-18 23:17] LABS: Alanine Aminotransferase 20 U/L (0-41); Albumin Level 3.7 g/dL (3.5-5.2); Alkaline Phosphatase 193 U/L (40-130); Anion Gap 9.8 (5-19); Aspartate Amino Transferase 28 U/L (0-40); Blood Urea Nitrogen 12 mg/dL (6-20); C Reactive Protein 4.8 mg/L (0.0-4.9); Calcium 8.5 mg/dL (8.5-10.5); Carbon Dioxide 27 mmol/L (22-29); Chloride 94 mmol/L (98-107); Creatinine Clr Calc Pharmacy 148.5534; Globulin 2.4 g/dL (1.3-4.6); Glucose 158 mg/dL (65-115); Magnesium 1.9 mg/dL (1.7-2.3); Osmolality Calculated 267 mOsm/kg (285-295); Potassium 3.8 mmol/L (3.5-5.1); Sodium 127 mmol/L (136-145); Total Bilirubin 0.9 mg/dL (0.15-1.2); Total Protein 6.1 g/dL (6.6-8.7)
[2022-08-18 23:40] LABS: Estmated Average Glucose 157; Hemoglobin A1C 7.1 % (4.0-6.0)
--- NOTE | 2022-08-18 23:58 | ECG_ITS ---
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 Measurements Intervals [place] Rate: 83 P: 0 CO: 0 QRS: -47 QRSD: 124 T: 154 QT: 478 QTc: 562 Interpretive Statements ATRIAL FIBRILLATION LEFT ANTERIOR FASCICULAR BLOCK [QRS AXIS <= -45, QR IN I, RS IN II] POSSIBLE LEFT VENTRICULAR HYPERTROPHY [VOLTAGE CRITERIA PLUS LAE OR QRS WIDENING] ST DEVIATION AND MARKED T-WAVE ABNORMALITY, CONSIDER LATERAL ISCHEMIA [-0.5+ mV T-WAVE IN I/aVL/V5/V6] Compared to ECG 08/18/2022 22:54:33 Ventricular premature complex(es) no longer present Aberrant conduction of supraventricular beat(s) no longer present T-wave abnormality still present Possible ischemia still present Electronically Signed On 08-19-2022 9:48:26 CDT by Daryn Benitez M.D. [id number]
[2022-08-19 00:07] LABS: Hepatitis A Antibody IgM Non-Reactive (Nonreactive); Hepatitis B Core IgM Non-Reactive (Nonreactive); Hepatitis B Surface Antigen Non-Reactive (Nonreactive); Hepatitis C Virus Antibody Non-Reactive (Nonreactive)
[2022-08-19 00:20] LABS: Alcohol Level < 10 mg/dL (0-10)
[2022-08-19 00:20] LABS: Troponin 5 2HR 12.19 ng/L (0-15)
[2022-08-19 00:39] LABS: HIV 1 & 2 Antibody Non-Reactive (Non-Reactiv); HIV 1 & 2 Antigen Non-Reactive (Non-Reactiv)
[2022-08-19 00:51] LABS: Troponin 5 2HR Delta 0.19 ABS# (0-10)
--- NOTE | 2022-08-19 03:58 | ECG_ITS ---
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 Measurements Intervals [place] Rate: 78 P: 0 SD: 0 QRS: -48 QRSD: 133 T: 155 QT: 424 QTc: 483 Interpretive Statements ATRIAL FIBRILLATION INTRAVENTRICULAR CONDUCTION DELAY [130+ ms QRS DURATION] POSSIBLE LEFT VENTRICULAR HYPERTROPHY [VOLTAGE CRITERIA PLUS LAE OR QRS WIDENING] Compared to ECG 08/19/2022 00:22:17 Intraventricular conduction delay now present Left anterior fascicular block no longer present T-wave abnormality no longer present Possible ischemia no longer present Electronically Signed On 08-19-2022 9:48:41 CDT by Daryn Benitez M.D. [id number]
[2022-08-19 03:59] LABS: Glucose Point of Care 157 mg/dL (70-110)
[2022-08-19 04:05] LABS: Basophils # 0.1 10^3/uL (0.0-0.1); Basophils % 1.2 %; Eosinophils # 0.1 10^3/uL (0.0-0.8); Eosinophils % 2.6 %; Hematocrit 44.5 % (42.0-52.0); Hemoglobin 14.6 g/dL (11.7-16.6); Lymphocytes # 1.2 10^3/uL (0.8-4.8); Lymphocytes % 27.3 %; Mean Corpuscular HGB Conc 32.8 g/dL (30.0-36.0); Mean Corpuscular Hemoglobin 29.5 pg (28.0-34.0); Mean Corpuscular Volume 89.9 fl (80-94); Mean Platelet Volume 11.4 fL (7.4-10.4); Monocytes # 0.3 10^3/uL (0.2-0.9); Monocytes % 7.7 %; Neutrophils # 2.62 10^3/uL (1.8-7.7); Nucleated Red Blood Cells % 0 %; Platelet Count 97 10^3/cmm (130-400); Red Blood Count 4.95 10^6/uL (4.1-5.3); Red Cell Distribution Width 13.6 % (12.1-15.1); White Blood Count 4.3 10^3/uL (4.0-10.0)
[2022-08-19 04:12] VITALS: O2SAT 95
[2022-08-19 04:36] LABS: Alanine Aminotransferase 22 U/L (0-41); Albumin Level 3.7 g/dL (3.5-5.2); Alkaline Phosphatase 171 U/L (40-130); Anion Gap 15.7 (5-19); Aspartate Amino Transferase 29 U/L (0-40); Blood Urea Nitrogen 11 mg/dL (6-20); Calcium 8.6 mg/dL (8.5-10.5); Carbon Dioxide 26 mmol/L (22-29); Chloride 100 mmol/L (98-107); Creatinine Clr Calc Pharmacy 148.5534; Globulin 2.8 g/dL (1.3-4.6); Glucose 152 mg/dL (65-115); Magnesium 1.9 mg/dL (1.7-2.3); NT Pro B Type Natriuretic Pept 1629 pg/mL (0-125); Osmolality Calculated 288 mOsm/kg (285-295); Potassium 3.7 mmol/L (3.5-5.1); Sodium 138 mmol/L (136-145); Total Protein 6.5 g/dL (6.6-8.7); Troponin 5 6HR 12.99 ng/L (0-15)
[2022-08-19 05:21] LABS: Troponin 5 6HR Delta 0.99 ng/L (0-12)
[2022-08-19 06:00] VITALS: BP 163/91; PULSE 94; RESP 18; TEMP 36.6; O2SAT 99
--- NOTE | 2022-08-19 06:00 | USCV_ITS ---
DarinChun Age: 57 Gender: M : 1965 Exam Date: 08/19/2022 10:20 Ordering Phys: Norberto Cheng MD Technologist: KARTHIK [place] [facility] [place]: sob BP: / HR: 96 Rhythm: Atrial fibrillation Technical Quality: Suboptimal MEASUREMENTS (Male / Female) Normal Values 2D ECHO LV Diastolic Diameter PLAX 5.7 cm 4.2 - 5.9 / 3.9 - 5.3 cm LV Systolic Diameter PLAX 5.0 cm IVS Diastolic Thickness 1.5 cm 0.6 - 1.0 / 0.6 - 0.9 cm IVS Systolic Thickness 1.6 cm LVPW Diastolic Thickness 1.3 cm 0.6 - 1.0 / 0.6 - 0.9 cm LVPW Systolic Thickness 1.5 cm LVOT Diameter 2.6 cm LV Ejection Fraction 2D Teich 26.8 % LV Ejection Fraction MOD 2C 18.7 % LV Ejection Fraction 2C AL 18.6 % LA Diameter 4.5 cm M-MODE Aortic Annulus Diameter 4.5 cm LA Ao Ratio MM 0.9 MV E Point Septal Separation 0.7 cm DOPPLER AV Peak Velocity 129.0 cm/s LVOT Peak Velocity 60.0 cm/s AV Area Cont Eq vti 2.2 cm squared AV Area Cont Eq pk 2.4 cm squared MV Area PHT 3.3 cm squared Mitral E to A Ratio 3.4 MV E' Velocity 36.0 cm/s Mitral E to MV E' Ratio 15.9 Mitral E to LV E' Lateral Ratio 15.9 Mitral E to LV E' Septal Ratio 16.3 TV Peak E Velocity 32.0 cm/s PV Peak Velocity 76.0 cm/s FINDINGS Left Ventricle Left ventricular cavity not well visualized. Normal left ventricular cavity size. Mildly decreased left ventricular systolic function. Global left ventricular hypokinesis. Left ventricular ejection fraction is estimated at 45 %. Rhythm precludes evaluation of diastolic function. Right Ventricle Normal right ventricular size and systolic function. Right Atrium The right atrium is normal in size. Left Atrium Mildly increased left atrial size. Mitral Valve Structurally normal mitral valve without significant stenosis or prolapse. There is no mitral regurgitation. Aortic Valve Structurally normal aortic valve without significant sclerosis or stenosis. There is no aortic regurgitation. Tricuspid Valve Structurally normal tricuspid valve without significant stenosis or regurgitation. Pulmonary artery systolic pressure is normal. Pulmonic Valve Pulmonic valve not well visualized. Pericardium Normal pericardium without effusion. Aorta Normal ascending aorta dimension. IVC Inferior vena cava not visualized. CONCLUSIONS Left ventricular cavity not well visualized. Normal left ventricular cavity size. Mildly decreased left ventricular systolic function. Global left ventricular hypokinesis. Left ventricular ejection fraction is estimated at 45 %. Rhythm precludes evaluation of diastolic function. Mildly increased left atrial size. From January 2021 the ejection fraction has improved. There does not appear to be any mitral regurgitation on this study however it is poor quality with poor visualization. Dr. Daryn Benitez MD (Electronically Signed) Final Date: 20 August 2022 07:56 S
[2022-08-19 06:14] LABS: Glucose Point of Care 150 mg/dL (70-110)
[2022-08-19] MEDS: potassium chloride ER 20 mEq Tablet PO ×2 (06:51→18:06)
[2022-08-19] MEDS: bumetanide 1 mg Tablet PO ×2 (06:51→18:06)
--- NOTE | 2022-08-19 07:35 | PC.NURSE ---
At approximately 2140, patient came to RN station diaphoretic, having tremors, shortness of breath. He recently had a shower, but states it was not a hot shower & the sweating came on suddenly. Vitals were taken immediately & as were as follows: T-97.7, HR-93, RR-24, SpO2-97%, BP-138/78, BS-157. Dr Martin & Extermination Supervisor were notified to get approval for a consult from hospitalist. When trying to call the hospitalist, it went voicemail 2 times in a row, the patient's respiratory rate was increasing so a rapid response was called. Hospitalist arrived when rapid response team arrived, his note is as follows: Chun Webster Jr is a 57 year old male with a past medical history of atrial fibrillation not on anticoagulation? History of heart failure with reduced ejection fraction on Entresto, 6 hypertension, hyperlipidemia, insulin dependent type 2 diabetes mellitus, anxiety and depression, who presents [facility] for suicidal ideation. I was called to neuropsychiatric unit for rapid response, as patient was complaining of shortness of breath, currently he is in a wheelchair, on room air, saturating in the high 90s, normotensive, no significant tachycardia, pulse irregular, he complains of shortness of breath, shortness of breath with minimal exertion and at rest, denies a history of smoking, does report history of CHF, he has not been getting his Bumex here, denies any chest pain, no palpitations, no lightheadedness, no dizziness. He is in a wheelchair I it when asked him why, he tells me he has had a L1 vertebral compression fracture, which was sustained by falling on 08/15/2022 out of bed, Labs, chest Xray & EKG were ordered, patient stated he was feeling better & patient was monitored frequently overnight. Patient did not want family contacted.
[2022-08-19] MEDS: sacubitril/valsartan 24-26 mg Tablet 1 EACH PO ×2 (08:33→17:12)
[2022-08-19] MEDS: dilTIAZem ER (24HR) 120 mg Capsule PO (08:34)
[2022-08-19] MEDS: apixaban 5 mg Tablet PO ×2 (08:34→20:04)
[2022-08-19] MEDS: ropinirole 1 mg Tablet PO ×2 (08:34→20:04)
[2022-08-19] MEDS: spironolactone 25 mg Tablet PO ×2 (08:34→20:04)
[2022-08-19] MEDS: pregabalin 100 mg Capsule PO ×2 (08:34→17:12)
[2022-08-19] MEDS: carvedilol 6.25 mg Tablet 12.5 MG PO ×2 (08:35→20:04)
[2022-08-19] MEDS: insulin lispro 100 unit/1 mL SUBCUT ×4 (08:36→20:04)
[2022-08-19] MEDS: insulin glargine 100 units/1 mL 20 UNIT SUBCUT ×2 (08:36→20:04)
--- NOTE | 2022-08-19 11:04 | P.NPUPN_ITS ---
Subjective NPU Subjective: Patient presented today reporting that he is feeling better than yesterday but still having moments of diaphoresis. He had an episode yesterday where he was feeling diaphoretic and having some chest pain and the hospitalist came and ordered different labs and tests and make sure that he was on some medications that were reportedly prescribed to him at the outside hospital before he came to to [place]. We discussed the treatment team returning tomorrow and us looking at what kind of options he has moving forward for residential living given his circumstances medically as well as psychosocially. Mental Status Exam MSE Comments: This is an obese white male in hospital scrubs with limited grooming and eye contact. No abnormal movements except for psychomotor retardation. Cooperative with exam in mild to moderate distress. Speech was decreased rate and volume. Mood described as depressed, affect congruent. Thought process organized. Thought content: Patient endorsed suicidal but denied homicidal ideation, there were no delusions reported or noted, he denied any auditory or visual hallucination. Attention and concentration were intact and memory appeared reliable but none were formally tested. He is alert and oriented x3. Insight and judgment were limited and impulse control was impaired. Vitals/I&O/Wt Last Vital Signs Temp 97.9 F 08/19/22 06:00 Pulse 94 08/19/22 06:00 Resp 18 08/19/22 06:00 BP 163/91 08/19/22 06:00 Pulse Ox 99 08/19/22 06:00 O2 Del Method Room Air 08/19/22 04:12 Weight last 48 hrs Weight 128.367 kg Weight 127.913 kg Data NPU 08/19/22 03:45 08/19/22 03:45 A&P Assessment and plan (1) Closed compression fracture of L1 vertebra: Qualifiers: Encounter type: initial encounter Qualified Code(s): S32.010A - Wedge compression fracture of first lumbar vertebra, initial encounter for closed fracture (2) Suicidal ideation: (3) Major depressive disorder: (4) Erectile dysfunction: Qualifiers: Erectile dysfunction type: due to other secondary cause Qualified Code(s): N52.1 - Erectile dysfunction due to diseases classified elsewhere Plan This is a 57-year-old white male with a long history of depression and history of multiple medical comorbidities including significant Ortho concerns including report of recent pelvic fractures with significant psychosocial challenges reporting feeling hopeless, depressed and having suicidality. 1.? Continue current medication.? Restarted medications that he had missed for the last few days. 2.? Continue every 15 minute checks for safety. 3.? Encourage individual, group and milieu therapies. 4.? Encourage sober living treatment after discharge at the highest level of care to which he is willing to commit. 5. We discussed concerns for malingering. Involuntary Hold Information 96 Hour Hold: 96 Hour Involuntary Admission: No Attestations NPU Medical Necessity Statement*: Inpatient hospitalization is medically necessary and the clinically appropriate intervention at this time. We will monitor medications and make changes as indicated. Likely length of stay 2-4 days. Coding Level of Care Code Acute Code for Chg Fwd Diagnoses Closed compression fracture of L1 vertebra S32.010A Encounter type: initial encounter Suicidal ideation R45.851 Major depressive disorder F32.9 Erectile dysfunction N52.1 Erectile dysfunction type: due to other secondary cause
[2022-08-19] MEDS: nicotine 21 mg Patch 1 PATCH TRANSDERMA (12:06)
[2022-08-19 12:49] LABS: Glucose Point of Care 209 mg/dL (70-110)
[2022-08-19 14:00] VITALS: BP 136/83; PULSE 82; RESP 18; TEMP 36.7; O2SAT 94
[2022-08-19] MEDS: HYDROcodone-acetaminophen 5-325 mg Tablet 1 TAB PO ×2 (15:00→23:02)
[2022-08-19 16:08] VITALS: BP 140/77; PULSE 89; RESP 18; O2SAT 97
[2022-08-19 16:22] LABS: Glucose Point of Care 153 mg/dL (70-110)
[2022-08-19 17:30] LABS: Glucose Point of Care 237 mg/dL (70-110)
--- NOTE | 2022-08-19 17:43 | P.PN_ITS ---
Subjective Subjective: No acute events overnight. Seen and Neuropsych Unit today. Had a rapid response called yesterday. Consult note appreciated. Today morning seen sitting up in chair watching television. Denies any active complaints. As per nurse sometime ago was complaining about feeling sweaty again and blood sugar was checked was found to be on 157 and vitals were stable. Patient denies any chest pain, palpitations or difficulty in breathing. Vitals/I&O/Wt Last Vital Signs Temp 98.0 F 08/19/22 14:00 Pulse 89 08/19/22 16:08 Resp 18 08/19/22 16:08 BP 140/77 08/19/22 16:08 Pulse Ox 97 08/19/22 16:08 O2 Del Method Room Air 08/19/22 04:12 Weight last 48 hrs Weight 128.367 kg Weight 127.913 kg Physical Exam Const: COMMON NORMALS: no acute distress and patient oriented x3 Eye: COMMON NORMALS: Equal, round and reactive pupils present and EOMs intact bilaterally PUPIL: Yes Equal, round and reactive pupils present Neck/C-Spine: COMMON NORMALS: no lymphadenopathy Lymph: LYMPHATIC: no lymphadenopathy noted Resp: COMMON NORMALS: normal respiratory effort, No retractions and No use of accessory muscles AUSCULTATION: crackles Cardio: COMMON NORMALS: regular rate, regular rhythm, S1 normal heart sound present and S2 normal heart sound present RATE: regular rate RHYTHM: regular rhythm HEART SOUNDS: S1 normal heart sound present and S2 normal heart sound present GI: COMMON NORMALS: Normal to inspection, nondistended, normoactive bowel sounds present and non-tender Extremity: COMMON NORMALS: no pedal edema Neuro: COMMON NORMALS: patient oriented x3, CN's II-XII intact bilaterally and moves all extremities Psych: COMMON NORMALS: mental status grossly normal Data 08/19/22 03:45 08/19/22 03:45 A&P Assessment and plan (1) CHF exacerbation: (2) Hyponatremia: (3) Closed compression fracture of L1 vertebra: Qualifiers: Encounter type: initial encounter Qualified Code(s): S32.010A - Wedge compression fracture of first lumbar vertebra, initial encounter for closed fracture (4) Thrombocytopenia: (5) ISSA (obstructive sleep apnea): (6) Non-ischemic cardiomyopathy: (7) Chronic atrial fibrillation: (8) Suicidal ideation: (9) Depression: Plan Labs appreciated. Suicidal ideation/depression: Treatment as per primary team. Acute systolic CHF exacerbation/nonischemic cardiomyopathy: Agree with assessment during rapid response. Does not need transfer to medical service. Can be managed at Neuropsych Unit on oral medications. Continue with home medication of Coreg, Cardizem. Change spironolactone to 50 mg daily at home dose. Change Bumex to 1 mg twice daily from every 12 hourly. Monitor CMP for potassium daily for now. Repeat echocardiogram still awaited. Monitor vitals. Cycle troponins negative. Chest x-ray appreciated. Atrial fibrillation -Not in RVR -Resume his home Coreg, diltiazem -Denies a history of GI bleeds but does have thrombocytopenia. Eliquis started last night. We will continue for now and continue to monitor hemoglobin. If worsening thrombocytopenia can discontinue Eliquis. Patient is agreeable to continue with Eliquis. Hyponatremia: Likely secondary to CHF exacerbation. Resolved. Chronic thrombocytopenia: Continue to monitor. Type 2 diabetes mellitus: Appreciate A1c. Continue with sliding scale and Lantus 20 units twice daily. Carb consistent diet. Check serum alcohol level, does have a right hand tremor L1 vertebral compression fracture: Appreciate CT. Can discuss with Dr. Mueller as an outpatient. T SLO brace. [place] at home dose.: Hypertension goal blood pressure less than 140/90 mmHg. Continue treatment as above. On discharge will need to follow-up with primary care provider and with cardiology service as an outpatient. For now monitor CBC and CMP daily along with vitals. Care discussed in detail with patient's RN. We will sign off and follow as needed. Please call with any questions. Attestations Medical Necessity Statement*: As per primary team for suicidal ideation in a patient with baseline history of nonischemic cardiomyopathy and A-fib Diagnoses CHF exacerbation I50.9 Hyponatremia E87.1 Closed compression fracture of L1 vertebra S32.010A Encounter type: initial encounter Thrombocytopenia D69.6 ISSA (obstructive sleep apnea) G47.33 Non-ischemic cardiomyopathy I42.8 Chronic atrial fibrillation I48.20 Suicidal ideation R45.851 Depression F32.A
[2022-08-19 19:17] LABS: Troponin T (5th) Once 13 ng/L (0-15)
[2022-08-19 20:00] LABS: Glucose Point of Care 157 mg/dL (70-110)
[2022-08-19 21:11] VITALS: BP 146/91; PULSE 76; RESP 18; TEMP 37; O2SAT 96
[2022-08-20 06:00] VITALS: BP 110/77; PULSE 76; RESP 18; TEMP 36.9; O2SAT 98
[2022-08-20] MEDS: insulin glargine 100 units/1 mL 20 UNIT SUBCUT ×2 (07:53→20:50)
[2022-08-20] MEDS: HYDROcodone-acetaminophen 5-325 mg Tablet 1 TAB PO ×2 (07:54→17:36)
[2022-08-20] MEDS: potassium chloride ER 20 mEq Tablet PO ×2 (07:56→18:12)
[2022-08-20 08:24] LABS: Glucose Point of Care 198 mg/dL (70-110)
[2022-08-20] MEDS: insulin lispro 100 unit/1 mL SUBCUT ×4 (08:26→20:51)
[2022-08-20] MEDS: sacubitril/valsartan 24-26 mg Tablet 1 EACH PO ×2 (08:57→17:36)
[2022-08-20] MEDS: dilTIAZem ER (24HR) 120 mg Capsule PO (08:57)
[2022-08-20] MEDS: bumetanide 1 mg Tablet PO ×2 (08:57→17:36)
[2022-08-20] MEDS: pregabalin 100 mg Capsule PO ×2 (08:57→17:36)
[2022-08-20] MEDS: ropinirole 1 mg Tablet PO ×2 (09:00→20:50)
[2022-08-20] MEDS: apixaban 5 mg Tablet PO ×2 (09:00→20:50)
[2022-08-20 09:01] LABS: Basophils # 0.1 10^3/uL (0.0-0.1); Basophils % 1.7 %; Eosinophils # 0.2 10^3/uL (0.0-0.8); Eosinophils % 2.8 %; Hematocrit 50.2 % (42.0-52.0); Hemoglobin 16.3 g/dL (11.7-16.6); Lymphocytes # 1.9 10^3/uL (0.8-4.8); Lymphocytes % 29.5 %; Mean Corpuscular HGB Conc 32.5 g/dL (30.0-36.0); Mean Corpuscular Hemoglobin 29.6 pg (28.0-34.0); Mean Corpuscular Volume 91.1 fl (80-94); Monocytes # 0.6 10^3/uL (0.2-0.9); Monocytes % 8.9 %; Neutrophils # 3.66 10^3/uL (1.8-7.7); Neutrophils % 56.8 %; Nucleated Red Blood Cells % 0 %; Platelet Count 107 10^3/cmm (130-400); Red Blood Count 5.51 10^6/uL (4.1-5.3); Red Cell Distribution Width 13.9 % (12.1-15.1); White Blood Count 6.4 10^3/uL (4.0-10.0)
[2022-08-20] MEDS: nicotine 21 mg Patch 1 PATCH TRANSDERMA (09:11)
[2022-08-20 10:24] LABS: Alanine Aminotransferase 26 U/L (0-41); Alkaline Phosphatase 225 U/L (40-130); Anion Gap 10.4 (5-19); Aspartate Amino Transferase 36 U/L (0-40); Blood Urea Nitrogen 23 mg/dL (6-20); Calcium 8.5 mg/dL (8.5-10.5); Carbon Dioxide 31 mmol/L (22-29); Chloride 94 mmol/L (98-107); Glomerular Filtration Rate 77.3 mL/min (90-130); Glucose 202 mg/dL (65-115); Osmolality Calculated 281 mOsm/kg (285-295); Potassium 4.4 mmol/L (3.5-5.1); Sodium 131 mmol/L (136-145); Total Bilirubin 1.1 mg/dL (0.15-1.2)
[2022-08-20] MEDS: carvedilol 6.25 mg Tablet 12.5 MG PO ×2 (10:59→20:50)
[2022-08-20] MEDS: spironolactone 25 mg Tablet PO ×2 (10:59→20:49)
[2022-08-20 12:18] LABS: Glucose Point of Care 198 mg/dL (70-110)
--- NOTE | 2022-08-20 12:39 | PC.NURSE ---
Entered stop date for patient's [place] as 08/25/[address] Martin' orders.
[2022-08-20 14:00] VITALS: BP 104/57; PULSE 73; RESP 16; TEMP 36.3; O2SAT 92
--- NOTE | 2022-08-20 14:12 | P.NPUPN_ITS ---
Subjective NPU Subjective: Patient presented today reporting that he was feeling some optimism about trying to do things differently. He worked with the social work team to explore some different options for discharge for residential solutions. There was a rapid response called on the heels of a medical consult over the weekend which yielded understanding that he has CHF and supposed to be wearing a vest that reportedly is so expensive that there is no chance the insurance company is going to do anything other than demand that he identifies where he left said vest. We discussed the risks benefits and alternatives of considering an antidepressant and he expressed some concern due to medication reaction, but agreed to proceed as is documented in this note. Mental Status Exam MSE Comments: This is an obese white male in hospital scrubs with limited grooming and eye contact. No abnormal movements except for psychomotor retardation. Cooperative with exam in mild to moderate distress. Speech was decreased rate and volume. Mood described as depressed, affect congruent and tearful. Thought process organized. Thought content: Patient denied suicidal or homicidal ideation, there were no delusions reported or noted, he denied any auditory or visual hallucination. Attention and concentration were intact and memory appeared reliable but none were formally tested. He is alert and oriented x3. Insight a nd judgment were limited and impulse control was impaired. Vitals/I&O/Wt Last Vital Signs Temp 97.4 F L 08/20/22 14:00 Pulse 73 08/20/22 14:00 Resp 16 08/20/22 14:00 BP 104/57 08/20/22 14:00 Pulse Ox 92 08/20/22 14:00 O2 Del Method Room Air 08/20/22 14:00 Weight last 48 hrs Weight 128.367 kg Data NPU 08/20/22 08:36 08/20/22 09:52 A&P Assessment and plan (1) Closed compression fracture of L1 vertebra: Qualifiers: Encounter type: initial encounter Qualified Code(s): S32.010A - Wedge compression fracture of first lumbar vertebra, initial encounter for closed fracture (2) Suicidal ideation: (3) Major depressive disorder: (4) Erectile dysfunction: Qualifiers: Erectile dysfunction type: due to other secondary cause Qualified Code(s): N52.1 - Erectile dysfunction due to diseases classified elsewhere Plan This is a 57-year-old white male with a long history of depression and history of multiple medical comorbidities including significant Ortho concerns including report of recent pelvic fractures with significant psychosocial challenges reporting feeling hopeless, depressed and having suicidality. 1.? Continue current medication.? Restarted medications that he had missed for the last few days. Patient considering Lexapro for his depression and anxiety. 2.? Continue every 15 minute checks for safety. 3.? Encourage individual, group and milieu therapies. 4.? Encourage sober living treatment after discharge at the highest level of care to which he is willing to commit. Involuntary Hold Information 96 Hour Hold: 96 Hour Involuntary Admission: No Attestations NPU Medical Necessity Statement*: Inpatient hospitalization is medically necessary and the clinically appropriate intervention at this time. We will monitor medications and make changes as indicated. Likely length of stay 2 -3 days. Coding Level of Care Code Acute Code for Chg Fwd Diagnoses Closed compression fracture of L1 vertebra S32.010A Encounter type: initial encounter Suicidal ideation R45.851 Major depressive disorder F32.9 Erectile dysfunction N52.1 Erectile dysfunction type: due to other secondary cause
--- NOTE | 2022-08-20 14:37 | ECG_ITS ---
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 Measurements Intervals [place] Rate: 73 P: 0 FL: 0 QRS: -27 QRSD: 118 T: 220 QT: 468 QTc: 516 Interpretive Statements ATRIAL FIBRILLATION BORDERLINE LEFT AXIS DEVIATION [QRS AXIS < -20] POSSIBLE LEFT VENTRICULAR HYPERTROPHY [VOLTAGE CRITERIA PLUS LAE OR QRS WIDENING] ST DEVIATION AND MODERATE T-WAVE ABNORMALITY, CONSIDER ANTEROLATERAL ISCHEMIA [-0.1+ mV T-WAVE IN V3-V6] Compared to ECG 08/19/2022 04:09:26 T-wave abnormality now present Possible ischemia now present Intraventricular conduction delay no longer present Electronically Signed On 08-21-2022 10:11:31 CDT by Ignacio Agosto M.D. [id number]
--- NOTE | 2022-08-20 15:07 | P.EN_ITS ---
Event Note Event Note: Responded to a rapid response called. In talking with the patient he apparently had some left-sided sharp chest discomfort, quickly resolved in 1 minute or so. No associated symptoms. All vitals checked and normal. EKG demonstrated atrial fibrillation, controlled rate axis deviation, likely LVH. Flipped T waves are noted V3 through 6 and 1. This is similar to previous EKGs. Past history significant for nonischemic cardiomyopathy. Has seen cardiology before, angiogram in 1999 showed no significant disease and nuclear stress test following this demonstrated no reversible ischemia. It was recommended he have a LifeVest, but patient reports he is not for sure where that is. Echocard iogram done demonstrated EF appears improved at 45%. Patient was chest discomfort free, with no concerns within I left him. At this point there is no reason for serial cardiac enzymes or serial EKGs considering his history and recent previous rapid response and enzyme measurement.
--- NOTE | 2022-08-20 15:49 | PC.NURSE ---
After RR called overhead to patient's room, Dr Graves at bedside reviewing patient chart and pertinent medical history. Pt c/o chest pain. EKG was completed. See results in chart. Based on previous medical history obtained, Dr Graves and patient discussed his use of a previously ordered and given life vest. Patient stated his would have it and to try and speak with her regarding it. That he wore it for approximately 3 months back in 2019, but has since not used it. [employer] reached out to the pt's listed in chart. Listed states that she is the ex to the patient, and that she does not know where the life vest may be located at this time. [employer] contacted for assistance in this matter per requested of MD. SS states they will be looking into this matter as well. Patient updated on phone conversation between [employer] and patient's listed . He states that if she does not have the vest, then it is lost and cannot be found. MD notified of conversation. No other further orders at this time.
[2022-08-20 17:25] LABS: Glucose Point of Care 245 mg/dL (70-110)
[2022-08-20 20:10] LABS: Glucose Point of Care 295 mg/dL (70-110)
[2022-08-20 20:39] VITALS: BP 112/74; PULSE 79; RESP 18; TEMP 37; O2SAT 96
[2022-08-20] MEDS: hyDROXYzine 25 mg Capsule 50 MG PO (21:48)
[2022-08-21] MEDS: HYDROcodone-acetaminophen 5-325 mg Tablet 1 TAB PO ×3 (01:23→21:42)
[2022-08-21 06:00] VITALS: BP 132/85; PULSE 68; RESP 18; TEMP 36.9; O2SAT 96
[2022-08-21 08:16] LABS: Glucose Point of Care 277 mg/dL (70-110)
[2022-08-21] MEDS: pregabalin 100 mg Capsule PO ×2 (08:34→17:57)
[2022-08-21] MEDS: sacubitril/valsartan 24-26 mg Tablet 1 EACH PO ×2 (08:34→17:56)
[2022-08-21] MEDS: spironolactone 25 mg Tablet PO ×2 (08:34→20:14)
[2022-08-21] MEDS: ropinirole 1 mg Tablet PO ×2 (08:34→20:13)
[2022-08-21] MEDS: dilTIAZem ER (24HR) 120 mg Capsule PO (08:34)
[2022-08-21] MEDS: potassium chloride ER 20 mEq Tablet PO ×2 (08:35→17:56)
[2022-08-21] MEDS: bumetanide 1 mg Tablet PO ×2 (08:35→17:56)
[2022-08-21] MEDS: insulin lispro 100 unit/1 mL SUBCUT ×4 (08:35→21:42)
[2022-08-21] MEDS: apixaban 5 mg Tablet PO ×2 (08:35→20:13)
[2022-08-21] MEDS: carvedilol 6.25 mg Tablet 12.5 MG PO ×2 (08:36→20:13)
[2022-08-21] MEDS: neomycin-poly-bacitracin oint 28 gm 1 APPLIC TOPICAL ×2 (08:47→18:03)
[2022-08-21] MEDS: insulin glargine 100 units/1 mL 20 UNIT SUBCUT ×2 (08:47→17:57)
[2022-08-21 09:15] LABS: Basophils # 0.1 10^3/uL (0.0-0.1); Basophils % 1.4 %; Eosinophils # 0.1 10^3/uL (0.0-0.8); Eosinophils % 2.7 %; Hematocrit 47.5 % (42.0-52.0); Hemoglobin 15.4 g/dL (11.7-16.6); Lymphocytes # 1.2 10^3/uL (0.8-4.8); Lymphocytes % 26.5 %; Mean Corpuscular HGB Conc 32.4 g/dL (30.0-36.0); Mean Corpuscular Hemoglobin 29.4 pg (28.0-34.0); Mean Corpuscular Volume 90.8 fl (80-94); Mean Platelet Volume 11.9 fL (7.4-10.4); Monocytes # 0.4 10^3/uL (0.2-0.9); Monocytes % 8.8 %; Neutrophils # 2.67 10^3/uL (1.8-7.7); Neutrophils % 60.4 %; Nucleated Red Blood Cells % 0 %; Platelet Count 121 10^3/cmm (130-400); Red Blood Count 5.23 10^6/uL (4.1-5.3); Red Cell Distribution Width 13.8 % (12.1-15.1); White Blood Count 4.4 10^3/uL (4.0-10.0)
[2022-08-21 09:28] LABS: Alanine Aminotransferase 29 U/L (0-41); Albumin Level 3.7 g/dL (3.5-5.2); Alkaline Phosphatase 230 U/L (40-130); Anion Gap 12.4 (5-19); Aspartate Amino Transferase 43 U/L (0-40); Blood Urea Nitrogen 22 mg/dL (6-20); Calcium 8.6 mg/dL (8.5-10.5); Carbon Dioxide 30 mmol/L (22-29); Chloride 96 mmol/L (98-107); Globulin 2.9 g/dL (1.3-4.6); Glomerular Filtration Rate 77.3 mL/min (90-130); Glucose 215 mg/dL (65-115); Osmolality Calculated 288 mOsm/kg (285-295); Potassium 4.4 mmol/L (3.5-5.1); Sodium 134 mmol/L (136-145); Total Bilirubin 0.9 mg/dL (0.15-1.2); Total Protein 6.6 g/dL (6.6-8.7)
[2022-08-21 11:53] LABS: Glucose Point of Care 143 mg/dL (70-110)
[2022-08-21 14:00] VITALS: BP 109/72; PULSE 72; RESP 20; TEMP 36.7; O2SAT 98
[2022-08-21 17:23] LABS: Glucose Point of Care 214 mg/dL (70-110)
--- NOTE | 2022-08-21 17:44 | W.PM.NPUPNS ---
Subjective NPU Subjective: Patient attended today reporting that he is doing a little better. He reports that he is working with the social work team in finding a reasonable option for discharge. He reports that he is happy to hear that his CHF is stable if not somewhat improved. We discussed the vest and how much it cost him trying to locate it to return to the insurance company. He is still considering different medication options that have been posed to him. Mental Status Exam MSE Comments: This is an obese white male in hospital scrubs with limited grooming and eye contact. No abnormal movements except for mild psychomotor retardation. Cooperative with exam in mild distress. Speech was decreased rate and volume. Mood described as little better, affect congruent. Thought process organized. Thought content: Patient denied suicidal or homicidal ideation, there were no delusions reported or noted, he denied any auditory or visual hallucination. Attention and concentration were intact and memory appeared reliable but none were formally tested. He is alert and oriented x3. Insight and judgment were limited, but improving and impulse control was improving but limited. Vitals/I&O/Wt Last Vital Signs Temp 98.6 F 08/21/22 19:55 Pulse 75 08/21/22 19:55 Resp 18 08/21/22 19:55 BP 116/75 08/21/22 19:55 Pulse Ox 98 08/21/22 19:55 O2 Del Method Room Air 08/21/22 19:55 Data NPU 08/21/22 09:02 08/21/22 09:02 A&P Assessment and plan (1) Closed compression fracture of L1 vertebra: Qualifiers: Encounter type: initial encounter Qualified Code(s): S32.010A - Wedge compression fracture of first lumbar vertebra, initial encounter for closed fracture (2) Suicidal ideation: (3) Major depressive disorder: (4) Erectile dysfunction: Qualifiers: Erectile dysfunction type: due to other secondary cause Qualified Code(s): N52.1 - Erectile dysfunction due to diseases classified elsewhere Plan This is a 57-year-old white male with a long history of depression and history of multiple medical comorbidities including significant Ortho concerns including report of recent pelvic fractures with significant psychosocial challenges reporting feeling hopeless, depressed and having suicidality. 1.? Continue current medication.? Restarted medications that he had missed for the last few days. Patient considering Lexapro for his depression and anxiety. 2.? Continue every 15 minute checks for safety. 3.? Encourage individual, group and milieu therapies. 4.? Encourage sober living treatment after discharge at the highest level of care to which he is willing to commit. Involuntary Hold Information 96 Hour Hold: 96 Hour Involuntary Admission: No Attestations NPU Medical Necessity Statement*: Inpatient hospitalization is medically necessary and the clinically appropriate intervention at this time. We will monitor medications and make changes as indicated. Likely length of stay 1-3 days. Coding Level of Care Code Acute Code for g Fwd Diagnoses Closed compression fracture of L1 vertebra S32.010A Encounter type: initial encounter Suicidal ideation R45.851 Major depressive disorder F32.9 Erectile dysfunction N52.1 Erectile dysfunction type: due to other secondary cause
[2022-08-21 19:55] VITALS: BP 116/75; PULSE 75; RESP 18; TEMP 37; O2SAT 98
[2022-08-21 20:13] LABS: Glucose Point of Care 149 mg/dL (70-110)
[2022-08-21] MEDS: hyDROXYzine 25 mg Capsule 50 MG PO (20:13)
[2022-08-21] MEDS: ibuprofen 800 mg tablet PO (20:13)
[2022-08-22 06:00] VITALS: BP 113/62; PULSE 63; RESP 16; TEMP 37; O2SAT 98
[2022-08-22 08:09] LABS: Glucose Point of Care 122 mg/dL (70-110)
[2022-08-22] MEDS: dilTIAZem ER (24HR) 120 mg Capsule PO (08:30)
[2022-08-22] MEDS: apixaban 5 mg Tablet PO ×2 (08:30→17:33)
[2022-08-22] MEDS: ropinirole 1 mg Tablet PO ×2 (08:30→20:17)
[2022-08-22] MEDS: pregabalin 100 mg Capsule PO ×2 (08:30→17:33)
[2022-08-22] MEDS: potassium chloride ER 20 mEq Tablet PO ×2 (08:30→17:33)
[2022-08-22] MEDS: bumetanide 1 mg Tablet PO ×2 (08:30→17:33)
[2022-08-22] MEDS: spironolactone 25 mg Tablet PO ×2 (08:30→20:16)
[2022-08-22] MEDS: sacubitril/valsartan 24-26 mg Tablet 1 EACH PO ×2 (08:30→17:32)
[2022-08-22] MEDS: nicotine 21 mg Patch 1 PATCH TRANSDERMA (08:31)
[2022-08-22] MEDS: insulin glargine 100 units/1 mL 20 UNIT SUBCUT (08:41)
[2022-08-22] MEDS: carvedilol 6.25 mg Tablet 12.5 MG PO ×2 (11:05→20:15)
[2022-08-22 12:26] LABS: Glucose Point of Care 229 mg/dL (70-110)
[2022-08-22 13:30] VITALS: BP 105/56; PULSE 94; RESP 17; TEMP 36.6; O2SAT 97
[2022-08-22] MEDS: insulin lispro 100 unit/1 mL SUBCUT ×3 (14:04→20:15)
[2022-08-22] MEDS: benztropine 1 mg Tablet PO (17:32)
--- NOTE | 2022-08-22 17:53 | W.PM.NPUPNS ---
Subjective NPU Subjective: Today reporting that he was ready to attempt to explore with community options. He reports that his medications are helping and he is not interested in changing them at this time. We attempted to prep him for a short stay at [facility] but it was noteworthy that he had a warrant for his arrest. That was based on him needing to pay a fine of $250. He was working with some people in his [place] to get that money. We agreed to give it until tomorrow and he reports that if he cannot come up with the money that he is just going to turn himself in to [facility] reportedly for back child support. Mental Status Exam MSE Comments: This is an obese white male in hospital scrubs with limited grooming and eye contact. No abnormal movements except for mild psychomotor retardation. Cooperative with exam in mild distress. Speech was decreased rate and volume. Mood described as little better, affect congruent. Thought process organized. Thought content: Patient denied suicidal or homicidal ideation, there were no delusions reported or noted, he denied any auditory or visual hallucination. Attention and concentration were intact and memory appeared reliable but none were formally tested. He is alert and oriented x3. Insight and judgment were limited, but improving and impulse control was improving but limited. Vitals/I&O/Wt Last Vital Signs Temp 97.9 F 08/22/22 13:30 Pulse 24 08/22/22 13:30 Resp 17 08/22/22 13:30 BP 105/56 08/22/22 13:30 Pulse Ox 97 08/22/22 13:30 O2 Del Method Room Air 08/22/22 13:30 Data NPU 08/21/22 09:02 08/21/22 09:02 A&P Assessment and plan (1) Closed compression fracture of L1 vertebra: Qualifiers: Encounter type: initial encounter Qualified Code(s): S32.010A - Wedge compression fracture of first lumbar vertebra, initial encounter for closed fracture (2) Suicidal ideation: (3) Major depressive disorder: (4) Erectile dysfunction: Qualifiers: Erectile dysfunction type: due to other secondary cause Qualified Code(s): N52.1 - Erectile dysfunction due to diseases classified elsewhere Plan This is a 57-year-old white male with a long history of depression and history of multiple medical comorbidities including significant Ortho concerns including report of recent pelvic fractures with significant psychosocial challenges reporting feeling hopeless, depressed and having suicidality. 1.? Continue current medication.? Restarted medications. 2.? Continue every 15 minute checks for safety. 3.? Encourage individual, group and milieu therapies. 4.? Encourage sober living treatment after discharge at the highest level of care to which he is willing to commit. 5. Plan for discharge in the morning Involuntary Hold Information 96 Hour Hold: 96 Hour Involuntary Admission: No Attestations NPU Medical Necessity Statement*: Inpatient hospitalization is medically necessary and the clinically appropriate intervention at this time. We will monitor medications and make changes as indicated. Likely length of stay 1 day. Coding Level of Care Code Acute Code for g Fwd Diagnoses Closed compression fracture of L1 vertebra S32.010A Encounter type: initial encounter Suicidal ideation R45.851 Major depressive disorder F32.9 Erectile dysfunction N52.1 Erectile dysfunction type: due to other secondary cause
[2022-08-22 18:22] LABS: Glucose Point of Care 169 mg/dL (70-110)
[2022-08-22 20:09] LABS: Glucose Point of Care 222 mg/dL (70-110)
[2022-08-22] MEDS: HYDROcodone-acetaminophen 5-325 mg Tablet 1 TAB PO (20:17)
--- NOTE | 2022-08-22 20:20 | PC.NURSE ---
PRN hydro for hip pain rated 8/10 given as ordered per pt request.
[2022-08-22] MEDS: hyDROXYzine 25 mg Capsule 50 MG PO (21:21)
--- NOTE | 2022-08-22 21:25 | PC.NURSE ---
PRN vistaril for anxiety given per pt request.
[2022-08-22 21:28] VITALS: BP 135/89; PULSE 92; RESP 19; TEMP 37; O2SAT 91
[2022-08-23] MEDS: acetaminophen 325 mg Tablet 650 MG PO (00:32)
[2022-08-23] MEDS: HYDROcodone-acetaminophen 5-325 mg Tablet 1 TAB PO ×3 (02:56→21:11)
[2022-08-23 05:58] VITALS: BP 95/66; PULSE 70; RESP 16; TEMP 36.4; O2SAT 97
[2022-08-23 07:42] LABS: Glucose Point of Care 167 mg/dL (70-110)
[2022-08-23 08:28] LABS: Glucose Point of Care 187 mg/dL (70-110)
[2022-08-23] MEDS: insulin glargine 100 units/1 mL 20 UNIT SUBCUT ×2 (08:44→18:18)
[2022-08-23] MEDS: insulin lispro 100 unit/1 mL SUBCUT ×4 (08:44→20:33)
[2022-08-23] MEDS: pregabalin 100 mg Capsule PO ×2 (08:45→17:10)
[2022-08-23] MEDS: bumetanide 1 mg Tablet PO ×2 (08:45→17:10)
[2022-08-23] MEDS: ropinirole 1 mg Tablet PO ×2 (08:45→20:31)
[2022-08-23] MEDS: potassium chloride ER 20 mEq Tablet PO ×2 (08:45→17:10)
[2022-08-23] MEDS: apixaban 5 mg Tablet PO ×2 (08:45→20:32)
[2022-08-23] MEDS: dilTIAZem ER (24HR) 120 mg Capsule PO (08:45)
[2022-08-23] MEDS: sacubitril/valsartan 24-26 mg Tablet 1 EACH PO ×2 (08:45→17:09)
[2022-08-23] MEDS: spironolactone 25 mg Tablet PO ×2 (08:45→20:32)
[2022-08-23 11:06] VITALS: BP 95/66; PULSE 70; RESP 16; TEMP 36.4; O2SAT 97
[2022-08-23 11:36] LABS: Glucose Point of Care 257 mg/dL (70-110)
[2022-08-23] MEDS: carvedilol 6.25 mg Tablet 12.5 MG PO ×2 (11:55→20:32)
[2022-08-23 14:00] VITALS: RESP 18
[2022-08-23 17:11] LABS: Glucose Point of Care 199 mg/dL (70-110)
[2022-08-23] MEDS: hyDROXYzine 25 mg Capsule 50 MG PO (17:11)
[2022-08-23] MEDS: neomycin-poly-bacitracin oint 28 gm 1 APPLIC TOPICAL (17:13)
--- NOTE | 2022-08-23 17:15 | PC.NURSE ---
Patient stated he was anxious and still worked up after the situation today where he wasn't sure he was going to have a place to go after being discharged. After talking with patient, gave patient 50mg Vistaril PO. Encouraged patient to watch TV or rest. Will monitor.
--- NOTE | 2022-08-23 18:41 | PC.NURSE ---
Patient's Lantus not given the night of 08/23/22. Because of this, when this nurse administered his Lantus this AM, the Lantus was put onto the night of 08/22. This is why the timing has been off on Lantus. Have talked to Doron at Pharmacy. He DC'd a Lantus to get this back on schedule.
--- NOTE | 2022-08-23 18:53 | W.PM.NPUPNS ---
Subjective NPU Subjective: Patient presented today reporting that he was feeling better and ready to deal with the issues confronting him. He was able to resolve the issue of the warrant with law enforcement about the time this was resolved there was no longer a [facility]. We worked with the social work team on a plan to look into resources for staying in the morning and consider them as far out as [place]. Mental Status Exam MSE Comments: This is an obese white male in hospital scrubs with limited grooming and eye contact. No abnormal movements except for mild psychomotor retardation. Cooperative with exam in mild distress. Speech was decreased rate and volume. Mood described as better, affect congruent. Thought process organized. Thought content: Patient denied suicidal or homicidal ideation, there were no delusions reported or noted, he denied any auditory or visual hallucination. Attention and concentration were intact and memory appeared reliable but none were formally tested. He is alert and oriented x3. Insight and judgment were limited, but improving and impulse control was improving but limited. Vitals/I&O/Wt Last Vital Signs Temp 98.6 F 08/23/22 20:12 Pulse 79 08/23/22 20:12 Resp 18 08/23/22 20:12 BP 110/76 08/23/22 20:12 Pulse Ox 91 08/23/22 20:12 O2 Del Method Room Air 08/23/22 20:12 Data NPU 08/21/22 09:02 08/21/22 09:02 A&P Assessment and plan (1) Closed compression fracture of L1 vertebra: Qualifiers: Encounter type: initial encounter Qualified Code(s): S32.010A - Wedge compression fracture of first lumbar vertebra, initial encounter for closed fracture (2) Suicidal ideation: (3) Major depressive disorder: (4) Erectile dysfunction: Qualifiers: Erectile dysfunction type: due to other secondary cause Qualified Code(s): N52.1 - Erectile dysfunction due to diseases classified elsewhere Plan This is a 57-year-old white male with a long history of depression and history of multiple medical comorbidities including significant Ortho concerns including report of recent pelvic fractures with significant psychosocial challenges reporting feeling hopeless, depressed and having suicidality. 1.? Continue current medication.? Restarted medications. 2.? Continue every 15 minute checks for safety. 3.? Encourage individual, group and milieu therapies. 4.? Encourage sober living treatment after discharge at the highest level of care to which he is willing to commit. 5. Patient was first unable to go to [facility] secondary to warrant but warrant was resolved but then the bed was no longer available. We will explore local and then [place] or [facility]. We will plan for discharge tomorrow Involuntary Hold Information 96 Hour Hold: 96 Hour Involuntary Admission: No Attestations NPU Medical Necessity Statement*: Inpatient hospitalization is medically necessary and the clinically appropriate intervention at this time. We will monitor medications and make changes as indicated. Plan for discharge tomorrow. Coding Level of Care Code Acute Code for Chg Fwd Diagnoses Closed compression fracture of L1 vertebra S32.010A Encounter type: initial encounter Suicidal ideation R45.851 Major depressive disorder F32.9 Erectile dysfunction N52.1 Erectile dysfunction type: due to other secondary cause
[2022-08-23 19:48] LABS: Glucose Point of Care 175 mg/dL (70-110)
[2022-08-23 20:12] VITALS: BP 110/76; PULSE 79; RESP 18; TEMP 37; O2SAT 91
--- NOTE | 2022-08-23 21:15 | PC.NURSE ---
PRN [place] for pain in hip rated a 9/10 as ordered per pt request.
[2022-08-24] MEDS: HYDROcodone-acetaminophen 5-325 mg Tablet 1 TAB PO (05:24)
[2022-08-24 05:38] LABS: Glucose Point of Care 250 mg/dL (70-110)
[2022-08-24 06:00] VITALS: BP 99/57; PULSE 79; RESP 16; TEMP 36.4; O2SAT 95
[2022-08-24 08:51] VITALS: BP 99/57; PULSE 79; RESP 16; TEMP 36.4; O2SAT 95
[2022-08-24] MEDS: sacubitril/valsartan 24-26 mg Tablet 1 EACH PO (08:55)
[2022-08-24] MEDS: ibuprofen 800 mg tablet PO (08:55)
[2022-08-24] MEDS: apixaban 5 mg Tablet PO (08:55)
[2022-08-24] MEDS: carvedilol 6.25 mg Tablet 12.5 MG PO (08:56)
[2022-08-24] MEDS: potassium chloride ER 20 mEq Tablet PO (08:57)
[2022-08-24] MEDS: pregabalin 100 mg Capsule PO (08:57)
[2022-08-24] MEDS: spironolactone 25 mg Tablet PO (08:57)
[2022-08-24] MEDS: ropinirole 1 mg Tablet PO (08:57)
[2022-08-24] MEDS: bumetanide 1 mg Tablet PO (08:57)
[2022-08-24] MEDS: insulin lispro 100 unit/1 mL SUBCUT (08:57)
[2022-08-24] MEDS: dilTIAZem ER (24HR) 120 mg Capsule PO (08:57)
--- NOTE | 2022-08-24 09:10 | PC.NURSE ---
written discharge instruction discussed and left with patient, pt states understanding and compliance. pt left with meds to bed and personal belongings. pt left in [facility]
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
== END 2022-08-24 09:02 | disposition home or self-care (01) | DRG 881 ==
LOC: ER 01:31 → NP 03:17
PROVIDERS: Family Medicine; Student in an Organized Health Care Education/Training Program; Admitting Provider Psychiatry & Neurology Psychiatry; Emergency Provider Emergency Medicine; PCP Family Medicine Adult Medicine; Visit Provider Psychiatry & Neurology Psychiatry
DX: F32.9 Major depressive disorder, single episode, unspecified (principal); I50.23 Acute on chronic systolic (congestive) heart failure; S32.010A Wedge compression fracture of first lumbar vertebra, initial encounter for closed fracture; R45.851 Suicidal ideations; I48.20 Chronic atrial fibrillation, unspecified; E87.1 Hypo-osmolality and hyponatremia; I42.8 Other cardiomyopathies; Z91.148 Patient's other noncompliance with medication regimen for other reason; F10.11 Alcohol abuse, in remission; F41.9 Anxiety disorder, unspecified; I11.0 Hypertensive heart disease with heart failure; Z86.16 Personal history of COVID-19; E11.42 Type 2 diabetes mellitus with diabetic polyneuropathy; E78.5 Hyperlipidemia, unspecified; G47.33 Obstructive sleep apnea (adult) (pediatric); G25.81 Restless legs syndrome; D69.6 Thrombocytopenia, unspecified; Z96.652 Presence of left artificial knee joint; W19.XXXA Unspecified fall, initial encounter; M48.061 Spinal stenosis, lumbar region without neurogenic claudication; M48.07 Spinal stenosis, lumbosacral region
CPT/HCPCS: 36415; 36416; 71045; 80053; 80074; 80307; 82962; 83036; 83735; 83880; 84100; 84145; 84484; 85025; 86140; 87806; 93005; 93306; 94664; 96372; 97150; 97165; 99285; J1815

== ENCOUNTER 2022-09-01 11:38 | Emergency (ER) | payer MEDICAID, SELFPAY ==
[2022-09-01 11:42] VITALS: BP 146/78; PULSE 69; RESP 17; TEMP 36.6; O2SAT 99; BMI 34.2
--- NOTE | 2022-09-01 11:43 | XRR_ITS ---
PROCEDURE INFORMATION: Exam: XR Right Ankle Exam date and time: 09/01/2022 11:46 AM Age: 57 years old Clinical indication: Injury or trauma; Fall; Other: Unsure per PT; Additional info: Ankle pain TECHNIQUE: Imaging protocol: Radiologic exam of the right ankle. Views: 3 or more views. Total images: 2 COMPARISON: No relevant prior studies available. FINDINGS: Bones/joints: Nondisplaced oblique fracture of the distal metadiaphyseal area of the right fibula. An enthesophyte is noted at the Achilles tendon insertion site. Mild widening of medial ankle mortise with amorphous calcific density in this area suggest ligamentous injury age indeterminate. Soft tissues: Lateral, medial, and anterior soft tissue swelling is evident. XR/XR ankle RT min 3V* [id number] IMPRESSION: 1. Nondisplaced oblique fracture of the distal metadiaphyseal area of the right fibula. 2. Lateral, medial, and anterior soft tissue swelling is evident. 3. Mild widening of medial ankle mortise with amorphous calcific density in this area suggest ligamentous injury age indeterminate.
--- NOTE | 2022-09-01 11:58 | W.ED.FALL ---
HPI - Fall General: Chief Complaint: Fall Stated Complaint: RIGHT ANKLE PAIN S/P FALL Time Seen by Provider: 09/01/22 11:43 Source: patient Mode of arrival: EMS History of Present Illness: 57-year-old male presents to the emergency room via EMS after a fall when he was getting out of the shower, ground-level mechanical fall. He is complaining of right ankle and knee and hip pain. He did strike his head he had no loss consciousness. He is on Eliquis. He was given fentanyl and Zofran in the field. His pain is moderately well controlled. No vomiting no vision changes. MD complaint: fall Onset (ago): minute(s) Fall from: standing Place fall occurred: home Loss of consciousness: None Prolonged down time: no Context: tripped/slipped Location of injury: head Location of injury - extremities: Right: knee and ankle Quality: sharp (Right hip and ankle) Associated symptoms-after fall: Denies abdominal pain, chest pain, confusion, difficulty walking, headache(s), hematuria, lightheadedness, numbness, short of breath, vertigo or weakness Review of Systems Const: Denies: fever(s), chills, body aches, change in appetite, fatigue or malaise Card: Denies: chest pain or lightheadedness Resp: Denies: dyspnea, productive cough or non-productive cough GI: Denies: abdominal pain : Denies: hematuria Musc: Reports: joint pain (Right ankle right knee right hip) Skin/Breast: Denies: rash or pruritus Neuro: Denies: headache(s), difficulty walking, vertigo or confusion PFSH ED PFSH: Medical History Alcohol abuse Anxiety and depression Benign essential hypertension with target blood pressure below 140/90 Closed supracondylar fracture of femur Congestive heart failure due to cardiomyopathy Depression Diabetes Erectile dysfunction Hyperlipidemia Insomnia Mood disorder Neuropathy ISSA (obstructive sleep apnea) Osteoarthritis Psoriasis Restless leg syndrome Thrombocytopenia Surgical History H/O knee surgery Hx of cardiac cath S/P total knee arthroplasty Left total knee arthroplasty utilizing the following [place] implants: A size 6 triathlon posterior stabilized press-fit left femoral component, a size 7 triathlon titanium tibial component, press-fit, a triathlon tibial bearing insert size 7 x 9 mm, and an asymmetric 38 mm x 11 mm patella Family History Father Cancer Lung Mother Cancer Brain Other Diabetes Hypertension Social History Smoking and tobacco status: never smoked Alcohol intake: current Alcohol intake frequency: holidays/special occasions only Substance/Drug Use: never Household members: friend(s) Housing: Apartment Physical Exam Const: GENERAL APPEARANCE: cooperative and comfortable ORIENTATION/CONSCIOUSNESS: Yes awake, Yes oriented to person, Yes oriented to place and Yes oriented to time HENMT: COMMON NORMALS: normocephalic, atraumatic and hearing grossly normal bilaterally HEAD & SCALP: normocephalic and atraumatic Resp: COMMON NORMALS: normal respiratory effort, No retractions, No use of accessory muscles and clear to auscultation bilaterally AUSCULTATION: clear to auscultation bilaterally Cardio: COMMON NORMALS: regular rate, regular rhythm and No murmurs present (Cardio) RATE: regular rate RHYTHM: regular rhythm GI: COMMON NORMALS: Soft to palpation and No hepatosplenomegaly present AUSCULTATION: Yes normoactive bowel sounds PALPATION: Yes Soft to palpation, No Tenderness to palpation present (GI), No Guarding due to palpation present (GI) and Yes No hepatosplenomegaly present Extremity: COMMON NORMALS: normal to inspection, capillary refill normal, no clubbing, cyanosis or edema, no calf tenderness and no pedal edema Neuro: SENSORIUM/ORIENTATION: Yes oriented to person, Yes oriented to place and Yes oriented to time Skin: COMMON NORMALS: no rashes or lesions noted GENERAL SKIN EXAM: no rashes or lesions noted Course Vital Signs: Vital signs: Vital Signs Temperature 97.9 F 09/01/22 11:42 Pulse Rate 69 09/01/22 11:42 Respiratory Rate 17 09/01/22 11:42 Blood Pressure 146/78 09/01/22 11:42 Pulse Oximetry 99 09/01/22 11:42 MDM - Fall Medical Decision Making Right distal fibula fracture and a nondisplaced pubic rami fracture. Suspect he may have some ligamentous injury to the knee some moderate swelling but discomfort does not allow for stressing of collateral or cruciate ligaments at this time. We will place him in a posterior splint for his ankle and a knee immobilizer crutches and follow-up with orthopedics. Pain medications prescribed as well. Reviewed imaging with the patient. Medical Records I reviewed the patient's medical records. Lab Data I reviewed the patient's lab results. Radiology Impressions Ankle X-Ray 09/01/22 11:43 IMPRESSION: 1. Nondisplaced oblique fracture of the distal metadiaphyseal area of the right fibula. 2. Lateral, medial, and anterior soft tissue swelling is evident. 3. Mild widening of medial ankle mortise with amorphous calcific density in this area suggest ligamentous injury age indeterminate. Cervical Spine CT 09/01/22 12:00 IMPRESSION: No acute cervical spine pathology. Hip/Pelvis X-Ray 09/01/22 12:00 IMPRESSION: Mildly displaced fracture of the superior inferior pubic rami adjacent to symphysis pubis. Knee X-Ray 09/01/22 12:00 IMPRESSION: 1. Small joint effusion. 2. No acute osseous pathology. Head CT 09/01/22 12:01 IMPRESSION: No acute intracranial abnormality. Discharge Plan Discharge Patient Disposition: Home Clinical Impression: Pubic ramus fracture, Fibula fracture, Sprain of right knee Condition: Stable Prescriptions: New hydrocodone-acetaminophen 5-325 mg tablet 1 tab PO Q6H PRN (Reason: pain) Qty: 20 0RF No Action insulin glargine 100 unit/mL solution 45 unit SUBCUT BID@0900,2200 30 Days Qty: 30 5RF Rx Instructions: 340 b insulin lispro 100 unit/mL solution 5 unit SUBCUT Q6H PRN (Reason: hyperglycemia) 30 Days Qty: 10 5RF Rx Instructions: administer with Insulin sliding scale 340 B ropinirole 1 mg Tablet 1 mg PO BID@,22 Qty: 60 0RF pregabalin 100 mg Capsule 100 mg PO BID Qty: 60 0RF Entresto 24-26 mg Tablet 1 tab PO BID Qty: 30 0RF bumetanide 1 mg Tablet 1 mg PO BID Qty: 60 0RF Eliquis 5 mg Tablet 5 mg PO BID@0900,2100 Qty: 60 1RF carvedilol 6.25 mg Tablet 12.5 mg PO Q12H Qty: 60 0RF spironolactone 25 mg Tablet 25 mg PO 0900,2100 Qty: 60 0RF Klor-Con M20 20 mEq Tablet,Er Particles/Crystals 20 meq PO BID Qty: 60 0RF diltiazem HCl 120 mg Capsule,Extended Release 24hr 120 mg PO DAILY Qty: 30 0RF hydroxyzine pamoate 25 mg Capsule 50 mg PO Q6H PRN (Reason: Anxiety) 30 Days Qty: 30 1RF zaleplon 10 mg capsule 10 mg PO ONCE 30 Days Qty: 30 0RF Discharge Orders: Discharge ED (Routine); Ordered 09/01/22 Ordered By: Dell Harris Referrals: Demacrus Rivera MD [Primary Care Provider] - Discharge Diet: Usual diet Discharge Activity: Limit activity as instructed Patient Instructions: Opioid Safety, Pain Management Activity Restrictions/Additional Instructions: You are seen today after a fall. You have a distal fibula fracture and a pubic rami fracture that is nondisplaced. Recommend that you use crutches and nonweightbearing on your right leg. In addition to this suspect you have a sprain of your right knee you are placed in a knee immobilizer. You will be referred to orthopedic surgery for all of these issues. Use the pain medication prescribed as needed. Coding Level of Care Code ED Dispatcher Service for Shreya Espinoza
--- NOTE | 2022-09-01 12:00 | XRR_ITS ---
PROCEDURE INFORMATION: Exam: XR Right Knee Exam date and time: 09/01/2022 12:05 PM Age: 57 years old Clinical indication: Injury or trauma; Fall; Blunt trauma; Knee; Right TECHNIQUE: Imaging protocol: Radiologic exam of the right knee. Views: 3 views. Total images: 2 COMPARISON: CR (LOW EXM, ) 09/01/2022 11:46 AM FINDINGS: Bones/joints: Small joint effusion. Minimal marginal osteophytes are noted. No acute fracture nor subluxation. No osseous erosion nor periosteal reaction. Soft tissues: Normal. XR/XR knee RT 3V* [id number] IMPRESSION: 1. Small joint effusion. 2. No acute osseous pathology.
--- NOTE | 2022-09-01 12:00 | XRR_ITS ---
PROCEDURE INFORMATION: Exam: XR Right Hip Exam date and time: 09/01/2022 12:05 PM Age: 57 years old Clinical indication: Injury or trauma; Fall; Blunt trauma (contusions or hematomas); Right; Hip TECHNIQUE: Imaging protocol: Radiologic exam of the right hip. Views: 1 view hip with pelvis when performed. Total images: 231 COMPARISON: CR (PELVIS, ) 08/16/2022 12:26 AM FINDINGS: Bones/joints: Mildly displaced fracture of the superior inferior pubic rami adjacent to symphysis pubis. Right femur unremarkable. Soft tissues: Unremarkable. XR/XR hip RT 2-3V wo/w pel* [id number] IMPRESSION: Mildly displaced fracture of the superior inferior pubic rami adjacent to symphysis pubis.
--- NOTE | 2022-09-01 12:00 | CTR_ITS ---
PROCEDURE INFORMATION: Exam: CT Cervical Spine Without Contrast Exam date and time: 09/01/2022 12:11 PM Age: 57 years old Clinical indication: Injury or trauma; Fall; Blunt trauma TECHNIQUE: Imaging protocol: Computed tomography of the cervical spine without contrast. Total images: 301 Radiation optimization: All CT scans at this facility use at least one of these dose optimization techniques: automated exposure control; mA and/or kV adjustment per patient size (includes targeted exams where dose is matched to clinical indication); or iterative reconstruction. REPORTING DATA: Count of CT and Cardiac NM exams in prior 12 months: This patient has received [address] and 0 known cardiac nuclear medicine studies in the 12 months prior to the current study. COMPARISON: CT chest wo con [id number] 02/19/2021 5:18 PM RADIATION DOSE METRICS: Total DLP (mGy-cm): 604.5 FINDINGS: Bones/joints: C5-7 degenerative disc disease with disc space narrowing and osteophyte formation. Lungs: Lung apices are normal. Soft tissues: Unremarkable. CT/CT cervical spin wo con* [id number] IMPRESSION: No acute cervical spine pathology.
--- NOTE | 2022-09-01 12:01 | CTR_ITS ---
PROCEDURE INFORMATION: Exam: CT Head Without Contrast Exam date and time: 09/01/2022 12:11 PM Age: 57 years old Clinical indication: Injury or trauma; Fall; Blunt trauma (contusions or hematomas); Without loss of consciousness TECHNIQUE: Imaging protocol: Computed tomography of the head without contrast. Total images: 3 Radiation optimization: All CT scans at this facility use at least one of these dose optimization techniques: automated exposure control; mA and/or kV adjustment per patient size (includes targeted exams where dose is matched to clinical indication); or iterative reconstruction. REPORTING DATA: Count of CT and Cardiac NM exams in prior 12 months: This patient has received [address] and 0 known cardiac nuclear medicine studies in the 12 months prior to the current study. COMPARISON: No relevant prior studies available. RADIATION DOSE METRICS: Total DLP (mGy-cm): 1154 FINDINGS: Brain: Normal. No hemorrhage. Unremarkable white matter. No mass effect. Cerebral ventricles: No ventriculomegaly. Paranasal sinuses: Visualized sinuses are unremarkable. No fluid levels. Mastoid air cells: Visualized mastoid air cells are well aerated. Bones/joints: Unremarkable. No acute fracture. Soft tissues: Unremarkable. CT/CT head wo con* [id number] IMPRESSION: No acute intracranial abnormality.
[2022-09-01 12:48] VITALS: PULSE 66; RESP 16; O2SAT 98
[2022-09-01] MEDS: HYDROcodone-acetaminophen 5-325 mg Tablet 2 TAB PO (13:34)
[2022-09-01 14:00] VITALS: BP 112/79; PULSE 88; RESP 16; O2SAT 96
--- NOTE | 2022-09-01 14:20 | PC.NURSE ---
PT GIVEN CRUTCH TRAINING. PT INSTRUCTED NOT TO PLACE ANY WEIGHT ON AFFECTED EXTREMITY. PT UNABLE TO BEND KNEE DUE TO IMMOBILIZER. PT STATES NO WEIGHT IS BEING PUT ON AFFECTED LEG. PHYSICIAN NOTIFIED. PHYSICIAN INSTRUCTED TO CONTINUE WITH CRUTCHES LONG NO WEIGHT IS PLACED ON FOOT. PT VERBALIZED UNDERSTANDING OF INSTRUCTION.
[2022-09-01 14:23] VITALS: BP 112/79; PULSE 88; RESP 16; O2SAT 96
--- NOTE | 2022-09-03 08:10 | DCPLANNER ---
Addendum entered by Yaritza Braxton 09/11/22 15:13: Patient had 2 appointments scheduled with ortho - patient did attend both appointments. Addendum entered by Yaritza Braxton 09/04/22 11:23: Patient has a follow up appointment scheduled for Monday, September 05, 2022 at 9:[address] Soto at ortho. Patient has a follow up appointment scheduled for Monday, September 05, [address] Sarabia at ortho. Original Note: medical affairs manager had message to schedule a follow up appointment for patient with ortho. medical affairs manager sent patients information to the front office staff at ortho. Patients information will be printed and reviewed. Clinic will call patient with appointment information.
== END 2022-09-01 14:00 | disposition home or self-care (01) ==
PROVIDERS: Emergency Provider Family Medicine; PCP Family Medicine Adult Medicine
DX: S83.91XA Sprain of unspecified site of right knee, initial encounter (principal); S32.591A Other specified fracture of right pubis, initial encounter for closed fracture; S82.434A Nondisplaced oblique fracture of shaft of right fibula, initial encounter for closed fracture; Z79.01 Long term (current) use of anticoagulants; Z79.4 Long term (current) use of insulin; I11.0 Hypertensive heart disease with heart failure; I50.9 Heart failure, unspecified; E11.9 Type 2 diabetes mellitus without complications; E78.5 Hyperlipidemia, unspecified; W18.30XA Fall on same level, unspecified, initial encounter
CPT/HCPCS: 29505; 70450; 72125; 73502; 73562; 73610; 99284; E0114

== ENCOUNTER → 2022-09-05 07:47 | Outpatient (BNVA) | payer MEDICAID, SELFPAY | PROVIDERS: PCP Family Medicine Adult Medicine; Visit Provider Orthopaedic Surgery | DX: M17.11 Unilateral primary osteoarthritis, right knee (principal); S32.511A Fracture of superior rim of right pubis, initial encounter for closed fracture; W18.2XXA Fall in (into) shower or empty bathtub, initial encounter | CPT/HCPCS: 27197; 99203 ==

== ENCOUNTER 2022-09-05 11:15 | Outpatient (CLI) | payer MEDICAID, SELFPAY | END 2022-09-05 11:16 | disposition home or self-care (01) | LOC: SPT 11:15 | PROVIDERS: PCP Family Medicine Adult Medicine; Visit Provider Podiatrist Foot & Ankle Surgery | DX: Z46.89 Encounter for fitting and adjustment of other specified devices (principal); S82.401D Unspecified fracture of shaft of right fibula, subsequent encounter for closed fracture with routine healing; W18.2XXD Fall in (into) shower or empty bathtub, subsequent encounter; Z59.01 Sheltered homelessness | CPT/HCPCS: 97760; 99204; L4361 ==

== ENCOUNTER → 2022-09-13 07:28 | Outpatient (BNVA) | payer MEDICAID, SELFPAY | PROVIDERS: PCP Family Medicine Adult Medicine; Visit Provider Podiatrist Foot & Ankle Surgery | DX: S82.401A Unspecified fracture of shaft of right fibula, initial encounter for closed fracture (principal); W18.2XXA Fall in (into) shower or empty bathtub, initial encounter; Z59.01 Sheltered homelessness | CPT/HCPCS: 99213 ==

== ENCOUNTER 2022-09-14 06:53 | Day surgery (SDC) | payer MEDICAID, SELFPAY ==
[2022-09-13 11:34] VITALS: BMI 34.2
[2022-09-14] VITALS (8 sets, daily range): BP systolic 93–117; BP diastolic 71–80; PULSE 62–81; RESP 12–20; TEMP 36.1; O2SAT 94–98
[2022-09-14] MEDS: sodium chloride 0.9% 1,000 ML 30 ML IV (07:54)
[2022-09-14 07:56] LABS: Glucose Point of Care 199 mg/dL (70-110)
--- NOTE | 2022-09-14 07:56 | ANES.PREANE2 ---
Pre-Anesthetic Assessment Height/Weight: Height 1.91 m Weight 124.284 kg Temp Pulse Resp BP Pulse Ox O2 Del Method 97 F L 68 18 112/80 96 Room Air 09/14/22 07:40 09/14/22 07:40 09/14/22 07:40 09/14/22 07:40 09/14/22 07:40 09/14/22 07:40 Preop Diagnosis: Right ankle fracture Operation Date: 09/14/22 10:10 Proposed Procedures p Open reduction internal fixation right ankle fracture 15029,S82.841A(Right) - Frank Soto DPM Familial anesthetic complications: None Was Beta Capo taken within 24 hours: Yes Was Clonidine taken within 24 hours: N/A Last intake: Intake Last Liquid Date 09/13/22 Last Liquid Time 21:00 Last Solid Date 09/13/22 Last Solid Time 17:30 Social No alcohol and No tobacco Exam alert, oriented x 3, clear to auscultation bilaterally and regular rate & rhythm Airway Mallampati: Class III Dentition: chipped Pulmonary Sleep Apnea CV/HEM Atrial Fibrillation, Congestive Heart Failure and Hypertension 02/16 Myocardial Perusion Scan IIMPRESSIONS ?1.? Myocardial perfusion imaging revealing a small to moderate area of ?persistent decreased tracer uptake in the inferior wall and apical region ?suggestive of myocardial scarring versus attenuation artifact. ?2.? Markedly diminished LV ejection fraction of 16%. ?3.? LV wall motion analysis revealed a severe diffuse hypokinesia of the left ?ventricle. ?4.? Markedly dilated LV cavity with an end-systolic volume of 208 mL 08/19 Echo CONCLUSIONS (improved function) ?Left ventricular cavity not well visualized. Normal left ?ventricular cavity size. Mildly decreased left ventricular ?systolic function. Global left ventricular hypokinesis. Left ?ventricular ejection fraction is estimated at 45 %. Rhythm ?precludes evaluation of diastolic function. ?Mildly increased left atrial size. ?From January 2021 the ejection fraction has improved.? There ?does not appear to be any mitral regurgitation on this study ?however it is poor quality with poor visualization. 02/16 stress test CONCLUSION: 1. No significant EKG changes with the LexiScan infusion 2. No LexiScan induced chest pain or cardiac arrhythmia 3. Normal blood pressure and heart rate response 4. Sestamibi/sestamibi perfusion scan pending; see separate report. Anesthetic Plan ASA status: 3 Anesthesia: General and Regional (specify below) Risk of > 500 ml blood loss (7ml/kg in children): No Medications/Allergies Home Medications Medication Instructions Recorded Confirmed Last Taken Type Cam Boot to the right #1 ea 09/05/22 09/13/22 Unknown Rx Wheel Chair #1 ea 09/05/22 09/13/22 Unknown Rx apixaban 5 mg tablet (Eliquis) 5 mg PO BID@0900,2100 circulation 09/06/22 09/14/22 09/12/22 Rx #60 tabs bumetanide 1 mg tablet 1 mg PO BID blood pressure #60 tabs 09/06/22 09/14/22 09/13/22 Rx carvedilol 6.25 mg tablet 12.5 mg PO BID heart/blood 09/06/22 09/13/22 09/13/22 Rx pressure #120 tabs diltiazem HCl 120 mg 120 mg PO DAILY #30 caps 09/06/22 09/14/22 09/13/22 Rx capsule,extended release 24 hr hydroxyzine pamoate 25 mg capsule 50 mg PO Q6H PRN Anxiety #90 caps 09/06/22 09/14/22 09/13/22 Rx potassium chloride 20 mEq 20 meq PO BID Potassium #60 tabs 09/06/22 09/14/22 09/13/22 Rx tablet,extended release(part/cryst) (Klor-Con M) ropinirole 1 mg tablet 1 mg PO BID@09,22 leg movements 09/06/22 09/14/22 09/13/22 Rx #60 tabs sacubitril 24 mg-valsartan 26 mg 1 tab PO BID blood pressure #30 09/06/22 09/14/22 09/13/22 Rx tablet (Entresto) tabs spironolactone 25 mg tablet 25 mg PO 0900,2100 hat/water pill 09/06/22 09/14/22 09/13/22 Rx #60 tabs zaleplon 10 mg capsule 10 mg PO .qhs PRN sleep 30 days 09/06/22 09/14/22 09/13/22 Rx #14 caps insulin glargine 100 unit/mL 60 unit SUBCUT QPM Diabetes 09/13/22 09/14/22 09/13/22 History subcutaneous solution pregabalin 100 mg capsule 100 mg PO BID 09/13/22 09/14/22 09/13/22 History Allergies Allergy/AdvReac Type Severity Reaction Status Date / Time trazodone Allergy Unknown Verified 09/13/22 07:37 Current Medications Generic Name Dose Route Start Last Admin Trade Name Freq PRN Reason Stop Dose Admin Sodium Chloride 1,000 mls @ 30 mls/hr 09/14/22 07:45 09/14/22 07:54 Sodium Chloride 0.9% IV 09/15/22 07:44 30 mls/hr .Q24H [place] Administration PFSH Anesthesia Medical History Alcohol abuse Anxiety and depression Benign essential hypertension with target blood pressure below 140/90 Closed supracondylar fracture of femur Congestive heart failure due to cardiomyopathy Depression Diabetes Erectile dysfunction Hyperlipidemia Insomnia Mood disorder Neuropathy ISSA (obstructive sleep apnea) Osteoarthritis Psoriasis Psychiatric care Restless leg syndrome Thrombocytopenia Surgical History H/O knee surgery Hx of cardiac cath S/P total knee arthroplasty Left total knee arthroplasty utilizing the following [place] implants: A size 6 triathlon posterior stabilized press-fit left femoral component, a size 7 triathlon titanium tibial component, press-fit, a triathlon tibial bearing insert size 7 x 9 mm, and an asymmetric 38 mm x 11 mm patella Family History Father Cancer Lung Mother Cancer Brain Other Diabetes Hypertension Social History Smoking and tobacco status: never smoked Alcohol intake: current Alcohol intake frequency: holidays/special occasions only Substance/Drug Use: never Household members: friend(s) Housing: Apartment Data Anesthesia Cardiac Studies: Echocardiogram 08/19/22 Echocardiogram Ultrasound 05/28/19 Sestamibi Stress Test (Cardiology) 02/20/21
[2022-09-14 08:55] LABS: Anion Gap 11.9 (5-19); Blood Urea Nitrogen 13 mg/dL (6-20); Calcium 8.6 mg/dL (8.5-10.5); Carbon Dioxide 25 mmol/L (22-29); Chloride 101 mmol/L (98-107); Glucose 188 mg/dL (65-115); Osmolality Calculated 283 mOsm/kg (285-295); Potassium 3.9 mmol/L (3.5-5.1); Sodium 134 mmol/L (136-145)
--- NOTE | 2022-09-14 09:44 | ANES.PROC ---
Anesthesia Procedures Procedure/Date: 09/14/22 Nerve Block ^: Nerve Block 1: Main Anesthesia: general anesthesia Time Out Performed: Yes Consent: requested by attending/covering physician, from patient, from other, risks and benefits reviewed and patient agrees to proceed Nerve block location: popliteal (R) Anesthesia monitors applied: pulse oximetry, EKG, BP cuff and oxygen Nerve block position: supine Anesthetic Used: ropivicaine 0.5% (30 ml) and with decadron (4 mg) Nerve Stimulator Used?: Yes Interscalene/Femoral BLK: 4 stimuplex 21 g needle used for position and inplane approach, visualize local anesthetic spread and no vascular puncture identified Injection: neg aspiration of heme Patient Tolerated Procedure: well and no complications Complications: none
--- NOTE | 2022-09-14 10:16 | PM.MISC ---
Miscellaneous Note Purpose of Documentation: Progress Note Note: Patient suffers from significant RLS and states since the block, the RLS has increased greatly in intensity. Explained the block shouldn't directly cause this increased movement since the block results in motor deficit, not excess motor movement. Suspect block-induced changes in sensation in the foot may be confusing or aggravating the condition in the brain. He does note that his toes feel like they are on fire, but states he gets this sensation in his toes 2 to 3 times a week at least and is not new.
[2022-09-14] MEDS: midazolam 1 mg/mL INJ 2 mL 2 MG IVP (11:18)
--- NOTE | 2022-09-14 11:41 | W.PM.OPSUD ---
Surgery/Procedure H&P Update DATE OF PROCEDURE: September 14, 2022 DATE H&P PERFORMED: 09/05/22 CHANGES TO PREVIOUS DOCUMENTATION: none PREOP DIAGNOSIS: Right ankle fracture PLANNED PROCEDURE: Operation Date: 09/14/22 10:10 Proposed Procedures p Open reduction internal fixation right ankle fracture 09787,S82.841A(Right) - Frank Soto DPM
[2022-09-14] MEDS: ceFAZolin 3,000 MG in sodium chloride 0.9% (100 ml) 100 ML 200 MG IV (11:59)
--- NOTE | 2022-09-14 13:27 | P.OP_ITS ---
Operative Report Date of procedure: September 14, 2022 Pre-op diagnosis: Right bimalleolar fracture Post-op diagnosis: Right trimalleolar fracture. Post-op findings: Minimally displaced posterior malleolus fracture right ankle Procedure done: and open reduction internal fixation right bimalleolar ankle fracture. CPT code 85488 Implants: [place] one third tubular plate nine-hole, 3.5 mm locking screws x8. React syndesmotic screw. 2-0 Vicryl, 3-0 Vicryl, skin madiha Specimens removed/disposition: None Surgeon: Frank Soto D.P.M. Economics Instructor: Fela Estimated blood loss: 5 33 IV fluids: 0 Brief History: 57-year-old male presents with right bimalleolar fracture date of injury 09/01/2022 fell getting out of the shower. He is currently living in a homeless long-term. On x-ray he has a Junior Cordova B fracture that is minimally displaced, there is an avulsion fracture at the medial malleolus with medial gutter widening greater than 7 mm. Discussed the level of instability to the patient's right ankle due to both medial and lateral involvement and medial gutter widening. Recommended open reduction internal fixation. I reviewed at length with the patient, the risks, potential complications, benefits, alternatives, expectations, and typical outcomes associated with the surgery. The risks and potential complications were explained in detail, including but not limited to infection, wound dehiscence or soft tissue complications, bleeding and hematoma, chronic edema, neuritis or nerve damage producing numbness or chronic pain, CRPS, failure to relieve pain or worsening pain, thick / painful / unsightly scar, limited motion / stiffness, malposition, delayed union, malunion, or nonunion, fracture, reaction to implants, anesthetic complications, venous thromboembolism, and deformity recurrence. I discussed the notion of no regrets with the patient as it pertains to complications and outcomes. The patient seemed to understand the nature of the proposed care and required convalescence. They asked appropriate questions, answered to their satisfaction. They are aware no guarantees can be made as to a satisfactory outcome and they understand there may be other possible unforeseen complications or outcomes not listed here that will be treated accordingly if they arise. There were no written or implied guarantees given to the patient. They gave informed consent to proceed. Procedure: Under mild sedation the patient was brought to the operating room and remained on the gurney in supine position. A timeout was performed. Anesthesia was then administered by the anesthesia service. Local anesthesia was injected by myself consisting of 10 cc of 0.5% Marcaine plain in a right saphenous nerve block and medial ankle field block fashion. Well-padded pneumatic tourniquet applied to the right high calf. The right lower extremity was scrubbed, prepped and draped utilizing normal aseptic technique. The right foot and ankle were exanguinated with a Esmarch bandage and the tourniquet was then inflated to 250 mmHg. Attention was directed to the lateral aspect of the right ankle where bony landmarks were palpated. Palpated the medial malleolus as well as the lateral malleolus. Directly over the lateral malleolus a linear longitudinal incision was made with a #15 blade through skin with dissection carried down through subcutaneous tissue to the layer of periosteum utilizing sharp and blunt technique. Care was taken to retract and preserve neurovascular and tendinous structures. All bleeders were ligated and cauterized as necessary. Periosteal incision was made and fracture hematoma was evacuated with curettage and flush. The distal fibular fracture was pulled out to length and derotated and fixated utilizing a one third tubular plate with 3.5 mm locking screws, 3 screws distal and 5 screws proximally with excellent bony apposition and compression noted. Excellent reduction of the fracture was appreciated in all 3 planes, AP, mortise and lateral views confirmed no hardware violated the ankle mortise. Cotton hook test showed medial gutter widening and syndesmotic instability with widening of the tib-fib clear space indicating posterior malleolus fracture and syndesmotic injury. I can visualize a small nondisplaced fracture of the posterior malleolus on the lateral view utilizing intraoperative C arm. Syndesmosis was repaired utilizing a 3.5 millimeter screw parallel to the ankle mortise, ankle was held in dorsiflexion, the syndesmosis was reduced and the talus was anatomic and congruent within the mortise following fixation. Smooth range of motion was appreciated intraoperatively of the right ankle. The incision was irrigated with copious amounts of sterile saline solution and closed with periosteum reapproximated with 2-0 Vicryl, subcutaneous tissue was reapproximated with 3-0 Vicryl and skin was reapproximated with madiha. The incision was dressed with Adaptic, sterile 4 x 4's, Kerlix and Richard wrap, cam boot was applied. Tourniquet was then deflated and a prompt hyperemic response was noted to the distal digits of the right foot. Patient tolerated the procedure and anesthesia well and was transferred to the PACU with vital signs stable and vascular status intact. Following a period of postoperative monitoring he will be discharged home is to remain strict nonweightbearing to the right lower extremity and was advised to elevate his right foot while resting. He was given at home care instructions, scheduled follow-up and my cell phone number to contact me with any postoperative questions or concerns. He was advised to resume his anticoagulants tomorrow morning 09/15/2022.
--- NOTE | 2022-09-14 13:34 | XR_ITS ---
WS: [id number] Right ankle, 3 views, 09/14/2022 Clinical Data: post op Comparison: Right ankle, 09/01/2022 Findings: The distal right fibular fracture has been reduced with the aid of a right lateral plate and and mult iple screws. There is a longer screw reducing the second does most us extending through the fibula in to the tibia. There are lateral madiha over the surgical site. There is a acute surrounding the ankl e. XR/XR ankle RT min 3V* [id number] Impression: Internal fixation of distal right fibular fracture.
--- NOTE | 2022-09-14 16:12 | ANE.PACU2 ---
Inpatient post-anesthesia follow up: Airway intact: Yes Vital signs: Temperature 97.0 F Pulse Rate 68 Respiratory Rate 18 Blood Pressure 104/79 Pulse Oximetry 96 Oxygen Delivery Me thod Room Air Oxygen Flow Rate 6 Fraction of Inspir ed Oxygen Hydration adequate: Yes Nausea and vomiting: No Pain level: 1 Mental status: Baseline
== END 2022-09-14 14:27 | disposition home or self-care (01) ==
PROVIDERS: Anesthesiology; PCP Family Medicine Adult Medicine; Visit Provider Podiatrist Foot & Ankle Surgery
PROC: (CPT 27822; principal; 2022-09-14 10:10)
DX: S82.851A Displaced trimalleolar fracture of right lower leg, initial encounter for closed fracture (principal); W18.2XXA Fall in (into) shower or empty bathtub, initial encounter; G47.30 Sleep apnea, unspecified; I50.9 Heart failure, unspecified; I11.0 Hypertensive heart disease with heart failure; Z79.01 Long term (current) use of anticoagulants; Z79.4 Long term (current) use of insulin; E11.40 Type 2 diabetes mellitus with diabetic neuropathy, unspecified; E78.5 Hyperlipidemia, unspecified; G25.81 Restless legs syndrome
CPT/HCPCS: 27822; 36416; 73610; 76000; 80048; 82962; C1713 ×2; J0690; J1100; J2250; J2405; J2704; J2795; J3010; J3490; J7030

== ENCOUNTER → 2022-09-20 14:34 | Outpatient (BNVA) | payer OTHER, SELFPAY | PROVIDERS: PCP Family Medicine Adult Medicine; Visit Provider Podiatrist Foot & Ankle Surgery | DX: S82.891A Other fracture of right lower leg, initial encounter for closed fracture (principal); W18.2XXA Fall in (into) shower or empty bathtub, initial encounter; Z59.01 Sheltered homelessness | CPT/HCPCS: 99024 ==

== ENCOUNTER → 2022-09-26 13:46 | Outpatient (BNVA) | payer MEDICAID, SELFPAY | PROVIDERS: PCP Family Medicine Adult Medicine; Visit Provider Podiatrist Foot & Ankle Surgery | DX: Z98.890 Other specified postprocedural states (principal); S82.891D Other fracture of right lower leg, subsequent encounter for closed fracture with routine healing; W18.2XXD Fall in (into) shower or empty bathtub, subsequent encounter; Z59.01 Sheltered homelessness | CPT/HCPCS: 73610; 99024 ==

== ENCOUNTER 2022-09-30 16:00 | Emergency (ER) | payer MEDICAID, SELFPAY ==
[2022-09-30 16:02] VITALS: BP 170/109; PULSE 77; RESP 18; TEMP 36.8; O2SAT 99
--- NOTE | 2022-09-30 16:12 | XRR_ITS ---
PROCEDURE INFORMATION: Exam: XR Chest Exam date and time: 09/30/2022 4:19 PM Age: 57 years old Clinical indication: Shortness of breath TECHNIQUE: Imaging protocol: Radiologic exam of the chest. Views: 1 view. COMPARISON: CR (CHEST, ) 08/18/2022 9:16 PM FINDINGS: Lungs: Unremarkable. No consolidation. Pleural spaces: Unremarkable. No pleural effusion. No pneumothorax. Heart/Mediastinum: Heart is mildly enlarged, unchanged. Bones/joints: Unremarkable for age. XR/XR chest 1V portable [id number] IMPRESSION: Mild cardiomegaly unchanged otherwise negative chest.
--- NOTE | 2022-09-30 16:13 | ECG_ITS ---
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 Measurements Intervals [place] Rate: 72 P: 0 VA: 0 QRS: -44 QRSD: 129 T: -83 QT: 416 QTc: 455 Interpretive Statements ATRIAL FIBRILLATION LEFT AXIS DEVIATION [QRS AXIS < -30] POSSIBLE LEFT VENTRICULAR HYPERTROPHY [VOLTAGE CRITERIA PLUS LAE OR QRS WIDENING] POSSIBLE SEPTAL MYOCARDIAL INFARCTION , OF INDETERMINATE AGE [30 ms Q WAVE IN V1/V2] INTERPRETATION BASED ON A DEFAULT AGE OF 40 YEARS Compared to ECG 08/20/2022 14:37:09 Myocardial infarct finding now present T-wave abnormality no longer present Possible ischemia no longer present Electronically Signed On 09-30-2022 23:10:25 CDT by Ignacio Agosto M.D. [id number]
--- NOTE | 2022-09-30 16:14 | ED_ITS ---
HPI - SOB/Dyspnea General: Chief Complaint: Shortness of Breath/Dyspnea Stated Complaint: SOB/CHF Time Seen by Provider: 09/30/22 16:07 History of Present Illness: HPI Narrative: Patient is a 57-year-old man that presents to the emergency department with comp laints of shortness of breath, sharp pain in his posterior thorax that abruptly started this morning. Patient reports recent ORIF of right ankle and calf pain. He is anticoagulated on apixaban 5 mg twice daily He reports he is also had issues with glucose control. In route glucose was greater than 500. Patient also has a history of heart failure and atrial fibrillation, restless leg syndrome and depression. Associated symptoms: Reports chest congestion, extremity pain and nausea; Deny abdominal pain, chest pain, dizziness, fever(s), orthopnea, palpitations, polydipsia, polyuria or vomiting Review of Systems General: Reports: 10 or more systems reviewed and unremarkable except in HPI and below Const: Denies: fever(s), chills, change in appetite, change in weight, fatigue or malaise Eyes: Denies: change in vision, eye discomfort, eye discharge or eye redness ENMT: Denies: throat pain, enlarged tonsils, odynophagia, hoarseness, ear or mastoid pain, ear discharge, change in hearing, tinnitus, nasal discharge, nasal congestion, post nasal drip or sinus pain Card: Denies: chest pain, palpitations, irregular heart rhythm, edema, dyspnea on exertion, orthopnea or leg pain with exertion Resp: Reports: dyspnea and chest congestion; Denies: productive cough, non-productive cough, wheezing or stridor GI: Reports: nausea; Denies: abdominal pain, vomiting, dysphagia, diarrhea, constipation, bloating, GI cramping or hematochezia : Denies: flank pain, dysuria, urinary frequency, urinary urgency, urinary hesitancy, oliguria or hematuria Musc: Reports: neck pain, back pain, extremity pain and extremity swelling; Denies: joint pain, joint swelling, joint redness, joint warmth or muscle weakness Skin/Breast: Denies: rash, pruritus, erythema, photosensitivity or new lesions Neuro: Denies: headache(s), numbness in extremities, weakness in extremities, sensory changes, lack of coordination, difficulty walking, frequent falls, dizziness, confusion, Slurred speech present, difficulty communicating thoughts, seizure-like activity or involuntary movements Endo: Denies: polyuria, polydipsia or tired all the time Max/Lymph: Denies: easy bruising or easy bleeding PFSH ED PFSH: Medical History Alcohol abuse Alcohol use disorder in remission Anxiety and depression Benign essential hypertension with target blood pressure below 140/90 Closed supracondylar fracture of femur Congestive heart failure due to cardiomyopathy Depression Diabetes Erectile dysfunction Generalized anxiety disorder Homelessness Hyperlipidemia Insomnia Major depressive disorder, recurrent, moderate Mood disorder Neuropathy ISSA (obstructive sleep apnea) Osteoarthritis Psoriasis Psychiatric care Restless leg syndrome Thrombocytopenia Surgical History H/O knee surgery Hx of cardiac cath S/P total knee arthroplasty Left total knee arthroplasty utilizing the following Aman implants: A size 6 triathlon posterior stabilized press-fit left femoral component, a size 7 triathlon titanium tibial component, press-fit, a triathlon tibial bearing insert size 7 x 9 mm, and an asymmetric 38 mm x 11 mm patella Family History Father Cancer Lung Mother Cancer Brain Other Diabetes Hypertension Social History Smoking and tobacco status: never smoked Alcohol intake: current Alcohol intake frequency: holidays/special occasions only Substance/Drug Use: never Household members: friend(s) Housing: Apartment Physical Exam Const: COMMON NORMALS: no acute distress, patient oriented x3 and alert GENERAL APPEARANCE: cooperative ORIENTATION/CONSCIOUSNESS: Yes awake, Yes oriented to person, Yes oriented to place and Yes oriented to time HENMT: COMMON NORMALS: normocephalic and atraumatic HEAD & SCALP: normocephalic and atraumatic FACE & SINUS: normal facial exam MOUTH: No rmal oral and palatal mucosa present THROAT: posterior oropharynx normal Eye: COMMON NORMALS: Equal, round and reactive pupils present, EOMs intact bilaterally, conjunctivae normal and no scleral icterus GENERAL EYE: appearance normal, both eyes and all related structures ALIGNMENT: Yes alignment normal PERIORBITAL: periorbital findings normal CONJUNCTIVA: Yes conjunctivae normal PUPIL: Yes Equal, round and reactive pupils present Neck/C-Spine: COMMON NORMALS: full ROM GENERAL: Yes normal visual in spection Lymph: LYMPHATIC: no lymphadenopathy noted Chest: COMMONS NORMALS: normal inspection of the chest Breast/axilla inspection: Yes no chest deformity, asymmetry, normal contours, no nodules, masses, tenderness Resp: COMMON NORMALS: normal respiratory effort, No retractions, No use of accessory muscles and clear to auscultation bilaterally EFFORT & INSPECTION: Yes able to speak in complete sentences and Yes symmetric chest movement AUSCULTATION: clear to auscultation bilaterally Cardio: COMMON NORMALS: Peripheral pulses 2+ throughout RHYTHM: abnormal rhythm irregularly irregular (History of atrial fibrillation) PERIPHERAL PULSES: Peripheral pulses 2+ throughout GI: COMMON NORMALS: Normal to inspection, nondistended, normoactive bowel sounds present, Soft to palpation, non-tender and No hepatosplenomegaly present INSPECTION: Yes normal to inspection AUSCULTATION: Yes normoactive bowel sounds PALPATION: Yes Soft to palpation and Yes No hepatosplenomegaly present RECTAL EXAM: Yes deferred Extremity: COMMON NORMALS: normal to inspection GENERAL: Yes normal exam except as noted OTHER: Right lower extremity is wrapped with an Richard wrap bandage and in a removable splint Neuro: COMMON NORMALS: patient oriented x3 SENSORIUM/ORIENTATION: Yes alert, Yes oriented to person, Yes oriented to place and Yes oriented to time CRANIAL NERVES: Yes CN normal except as noted Psych: COMMON NORMALS: mental status grossly normal, Normal thought process present, cooperative, activity/motor behavior normal, denies homicidal ideation and denies suicidal ideation THOUGHT PROCESS: Normal thought process present Skin: COMMON NORMALS: no rashes or lesions noted, no wounds and turgor normal GENERAL SKIN EXAM: no rashes or lesions noted and turgor normal Course Vital Signs: Vital signs: Vital Signs Temperature 98.3 F 09/30/22 16:02 Pulse Rate 77 09/30/22 16:02 Respiratory Rate 18 09/30/22 16:02 Blood Pressure 170/109 09/30/22 16:02 Pulse Oximetry 99 09/30/22 16:02 Oxygen Delivery Me thod Room Air 09/30/22 16:02 MDM - SOB/Dyspnea Medical Decision Making Chun is a 57-year-old man that presents with thoracic back pain that is sharp in nature, calf pain, shortness of breath following surgery 2 weeks ago. Also has a history of atrial fibrillation. Currently rate is controlled. Oxygen saturation within normal limits on room air. Blood pressure stable?currently 170s systolic. Differential diagnoses include AMI, CHF exacerbation, COPD exacerbation, atrial fibrillation, pneumonia, pulmonary embolism Laboratory studies, chest x-ray, urinalysis, EKG were ordered. At 1704, Elizabeth Her PA-C is assumed care. Lab Data 09/30/22 16:15 09/30/22 16:15 Labs/Radiology: Radiology Impressions Chest X-Ray 09/30/22 16:12 IMPRESSION: Mild cardiomegaly unchanged otherwise negative chest. Laboratory Results WBC 2.7 10^3/uL (4.0-10.0) L 09/30/22 16:15 RBC 4.75 10^6/uL (4.1-5.3) 09/30/22 16:15 Hgb 14.0 g/dL (11.7-16.6) 09/30/22 16:15 Hct 43.2 % (42.0-52.0) 09/30/22 16:15 MCV 90.9 fl (80-94) 09/30/22 16:15 MCH 29.5 pg (28.0-34.0) 09/30/22 16:15 MCHC 32.4 g/dL (30.0-36.0) 09/30/22 16:15 RDW 13.7 % (12.1-15.1) 09/30/22 16:15 Plt Count 55 10^3/cmm (130-400) L 09/30/22 16:15 MPV 12.8 fL (7.4-10.4) H 09/30/22 16:15 Neut % (Auto) 68.9 % 09/30/22 16:15 Lymph % (Auto) 21.1 % 09/30/22 16:15 [place] % (Auto) 7.4 % 09/30/22 16:15 Eos % (Auto) 1.5 % 09/30/22 16:15 Baso % (Auto) 0.7 % 09/30/22 16:15 Neut # (Auto) 1.86 10^3/uL (1.8-7.7) 09/30/22 16:15 Lymph # (Auto) 0.6 10^3/uL (0.8-4.8) L 09/30/22 16:15 [place] # (Auto) 0.2 10^3/uL (0.2-0.9) 09/30/22 16:15 Eos # (Auto) 0.0 10^3/uL (0.0-0.8) 09/30/22 16:15 Baso # (Auto) 0.0 10^3/uL (0.0-0.1) 09/30/22 16:15 Nucleated RBC % (auto) 0 % 09/30/22 16:15 Nucleated RBCs # 0.0 /100WBC 09/30/22 16:15 PT 16.10 SECONDS (12.1-14.9) H 09/30/22 16:15 INR 1.25 (0.8-1.2) H 09/30/22 16:15 APTT 31.6 SECONDS (23.9-36.7) 09/30/22 16:15 D-Dimer 0.61 ug/mIFEU (0-0.59) H 09/30/22 16:15 Potassium 4.4 mmol/L (3.5-5.1) 09/30/22 16:15 Carbon Dioxide 24 mmol/L (22-29) 09/30/22 16:15 Anion Gap 13.4 (5-19) 09/30/22 16:15 BUN 11 mg/dL (6-20) 09/30/22 16:15 Creatinine 1.0 mg/dL (0.7-1.2) 09/30/22 16:15 POC Glucose 573 mg/dL (70-110) H* 09/30/22 16:15 Calculated Osmolality 293 mOsm/kg (285-295) 09/30/22 16:15 Total Bilirubin 0.7 mg/dL (0.15-1.2) 09/30/22 16:15 Troponin T Baseline 11 ng/L (0-15) 09/30/22 16:15 Albumin 3.8 g/dL (3.5-5.2) 09/30/22 16:15 Globulin 2.6 g/dL (1.3-4.6) 09/30/22 16:15 Discharge Plan Discharge Condition: Stable Prescriptions: No Action (DME) Cam Boot to the right See Rx Instructions .Route .MEDSUPPLY Qty: 1 0RF Rx Instructions: As directed (DME) Wheel Chair See Rx Instructions .Route .MEDSUPPLY Qty: 1 0RF Rx Instructions: As directed by HOME citalopram [Celexa] 40 mg tablet 40 mg PO DAILY Qty: 30 2RF zaleplon 10 mg capsule 10 mg PO .qhs PRN (Reason: sleep) 30 Days Qty: 30 2RF quetiapine [Seroquel] 100 mg tablet 100 mg PO .HS Qty: 30 2RF hydrocodone-acetaminophen 5-325 mg tablet 1 tab PO Q8H PRN (Reason: pain) 7 Days Qty: 21 0RF bumetanide 1 mg tablet 1 mg PO BID Qty: 60 5RF Eliquis 5 mg tablet 5 mg PO BID@0900,2100 Qty: 60 5RF carvedilol 6.25 mg tablet 12.5 mg PO BID Qty: 120 5RF diltiazem HCl 120 mg capsule,extended release 24hr 120 mg PO DAILY Qty: 30 5RF hydroxyzine pamoate 25 mg capsule 50 mg PO Q6H PRN (Reason: Anxiety) Qty: 90 5RF Klor-Con M20 20 mEq tablet,ER particles/crystals 20 meq PO BID Qty: 60 5RF ropinirole 1 mg tablet 1 mg PO BID@09,22 Qty: 60 5RF Entresto 24-26 mg tablet 1 tab PO BID Qty: 30 5RF spironolactone 25 mg tablet 25 mg PO 0900,2100 Qty: 60 5RF sildenafil [Viagra] 25 mg tablet 25 mg PO DAILY Qty: 30 0RF Rx Instructions: 1 or 2 tablets one hour before activity insulin glargine 100 unit/mL solution 60 unit SUBCUT QPM Rx Instructions: 340 b pregabalin 100 mg capsule 100 mg PO BID Referrals: Demarcus Rivera MD [Primary Care Provider] - Coding Level of Care Code ED Assembler Tractor for Shreya Espinoza
[2022-09-30 16:18] LABS: Glucose Point of Care 573 mg/dL (70-110)
[2022-09-30 16:24] LABS: Basophils % 0.7 %; Eosinophils % 1.5 %; Hematocrit 43.2 % (42.0-52.0); Lymphocytes # 0.6 10^3/uL (0.8-4.8); Lymphocytes % 21.1 %; Mean Corpuscular HGB Conc 32.4 g/dL (30.0-36.0); Mean Corpuscular Hemoglobin 29.5 pg (28.0-34.0); Mean Corpuscular Volume 90.9 fl (80-94); Mean Platelet Volume 12.8 fL (7.4-10.4); Monocytes # 0.2 10^3/uL (0.2-0.9); Monocytes % 7.4 %; Neutrophils # 1.86 10^3/uL (1.8-7.7); Neutrophils % 68.9 %; Nucleated Red Blood Cells % 0 %; Platelet Count 55 10^3/cmm (130-400); Red Blood Count 4.75 10^6/uL (4.1-5.3); Red Cell Distribution Width 13.7 % (12.1-15.1); White Blood Count 2.7 10^3/uL (4.0-10.0)
[2022-09-30 16:40] LABS: INR 1.25 (0.8-1.2); Partial Thromboplastin Time 31.6 SECONDS (23.9-36.7)
[2022-09-30 16:42] LABS: D Dimer 0.61 ug/mIFEU (0-0.59)
[2022-09-30 16:47] LABS: Lactic Sepsis W/Reflex 2.4 mmol/L (0.5-2.2)
[2022-09-30 16:51] LABS: Troponin(5th) Baseline 11 ng/L (0-15)
[2022-09-30 16:57] LABS: Alanine Aminotransferase 45 U/L (0-41); Albumin Level 3.8 g/dL (3.5-5.2); Alkaline Phosphatase 359 U/L (40-130); Anion Gap 13.4 (5-19); Aspartate Amino Transferase 46 U/L (0-40); Blood Urea Nitrogen 11 mg/dL (6-20); Calcium 8.2 mg/dL (8.5-10.5); Carbon Dioxide 24 mmol/L (22-29); Chloride 96 mmol/L (98-107); Globulin 2.6 g/dL (1.3-4.6); Glomerular Filtration Rate 77.3 mL/min (90-130); NT Pro B Type Natriuretic Pept 290 pg/mL (0-125); Osmolality Calculated 293 mOsm/kg (285-295); Potassium 4.4 mmol/L (3.5-5.1); Sodium 129 mmol/L (136-145); Total Bilirubin 0.7 mg/dL (0.15-1.2); Total Protein 6.4 g/dL (6.6-8.7)
[2022-09-30] MEDS: sodium chloride 0.9% 1,000 ML 999 ML IV (17:00)
[2022-09-30] MEDS: aspirin 325 mg Tablet PO (17:00)
[2022-09-30 17:03] VITALS: BP 140/76
--- NOTE | 2022-09-30 17:05 | CTR_ITS ---
PROCEDURE INFORMATION: Exam: CTA Chest With Contrast Exam date and time: 09/30/2022 5:14 PM Age: 57 years old Clinical indication: Dyspnea; Additional info: Elevated d dimer, SOB, 2 weeks post op TECHNIQUE: Imaging protocol: Computed tomographic angiography of the chest with contrast. Exam focused on the arteries. 3D rendering (Not supervised by radiologist): MIP and/or 3D reconstructed images were created by the technologist. Radiation optimization: All CT scans at this facility use at least one of these dose optimization techniques: automated exposure control; mA and/or kV adjustment per patient size (includes targeted exams where dose is matched to clinical indication); or iterative reconstruction. Contrast material: OMNI 350; Contrast volume: 85 ml; Contrast route: INTRAVENOUS (IV); REPORTING DATA: Count of CT and Cardiac NM exams in prior 12 months: This patient has received 3 known CTs and 0 known cardiac nuclear medicine studies in the 12 months prior to the current study. COMPARISON: CT angio chest PE protcl [id number] 03/04/2020 6:57 AM RADIATION DOSE METRICS: Total DLP (mGy-cm): 508.02 FINDINGS: Pulmonary arteries: Pulmonary vasculature is adequately opacified without filling defects or other evidence of acute pulmonary embolism. Aorta: Unremarkable. No aortic aneurysm. No aortic dissection. Lungs: Lung volumes are decreased but clear without infiltrates or congestion. Pleural spaces: Unremarkable. No pneumothorax. No pleural effusion. Heart: Heart is mildly enlarged. No significant coronary artery calcifications or pericardial effusion. Lymph nodes: Unremarkable. No enlarged lymph nodes. Liver: Liver is partially visualized and has a cirrhotic contour. Spleen: Spleen is enlarged. Bones/joints: Partial bone fusion involving T9 through T11 vertebral bodies. Degenerative changes T8-T9. No acute bony abnormalities. Soft tissues: Unremarkable. CT/CT angio chest PE protcl [id number] IMPRESSION: 1. Negative CT angiogram of the chest. No evidence of acute pulmonary embolism. 2. Additional nonemergent findings as above.
[2022-09-30 17:10] LABS: Glucose 558 mg/dL (65-115)
[2022-09-30 17:13] LABS: Add Urine Microscopic? NO; Charge for UA Resulting for Rev
[2022-09-30 17:16] LABS: Bilirubin Urine Neg (Negative); Blood Urine Neg (Negative); Glucose Urine UA 4+ (Normal); Ketones Urine Negative (Negative); Leukocyte Esterase Urine Negative (Negative); Nitrate Urine Negative (Negative); Protein Urine Neg (Negative); Specific Gravity, Urine 1.005 (1.005-1.030); Urine Appearance Clear (CLEAR); Urine Color Straw (Yellow); Urobilinogen Urine Norm (Negative); pH Urine 5 (5-7)
[2022-09-30] MEDS: iohexol 350 mg/mL 500 mL Btl (per mL) IV (17:19)
[2022-09-30 17:23] LABS: Amphetamines Screen Urine Negative (Negative); Barbiturates Screen Urine Negative (Negative); Benzodiazepines Screen Urine Negative (Negative); Cocaine Screen Urine Negative (Negative); Opiate Screen Urine Positive (Negative); PCP Screen Urine Negative (Negative); THC Screen Urine Negative (Negative)
[2022-09-30 17:56] VITALS: BP 152/86
[2022-09-30 18:04] LABS: Reflex Lactate Order REFLEX LACTIC ORDERD
[2022-09-30 18:09] VITALS: RESP 18; O2SAT 98
--- NOTE | 2022-09-30 18:16 | ECG_ITS ---
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 Measurements Intervals [place] Rate: 68 P: 0 MA: 0 QRS: -46 QRSD: 122 T: -66 QT: 440 QTc: 469 Interpretive Statements ATRIAL FIBRILLATION LEFT ANTERIOR FASCICULAR BLOCK [QRS AXIS <= -45, QR IN I, RS IN II] POSSIBLE LEFT VENTRICULAR HYPERTROPHY [VOLTAGE CRITERIA PLUS LAE OR QRS WIDENING] POSSIBLE SEPTAL MYOCARDIAL INFARCTION , PROBABLY OLD [30 ms Q WAVE IN V1/V2] MODERATE T-WAVE ABNORMALITY, CONSIDER LATERAL ISCHEMIA [-0.1+ mV T-WAVE IN I/aVL/V5/V6] Compared to ECG 09/30/2022 16:05:10 Left anterior fascicular block now present T-wave abnormality now present Possible ischemia now present Left-axis deviation no longer present Myocardial infarct finding still present Electronically Signed On 09-30-2022 23:10:39 CDT by Ignacio Agosto M.D. [id number]
[2022-09-30] MEDS: insulin regular-human 100 units/1 mL 10 UNIT IVP (18:25)
[2022-10-07 00:55] LABS: Beta-Hydroxybutyrate 0.06 mmol/L
== END 2022-09-30 18:44 | disposition home or self-care (01) ==
PROVIDERS: Nurse Practitioner; Emergency Provider Physician Assistant; PCP Family Medicine Adult Medicine
DX: E11.65 Type 2 diabetes mellitus with hyperglycemia (principal); R79.1 Abnormal coagulation profile; D72.819 Decreased white blood cell count, unspecified
CPT/HCPCS: 36416; 71045; 71275; 80053; 80306; 81003; 82010; 82962; 83605; 83880; 84484; 85025; 85378; 85610; 85730; 93005; 96374; 99285; J1815; J7030; Q9967

== ENCOUNTER → 2022-11-22 15:06 | Outpatient (BNVA) | payer MEDICAID, SELFPAY | PROVIDERS: PCP Family Medicine Adult Medicine; Visit Provider Podiatrist Foot & Ankle Surgery | DX: Z98.890 Other specified postprocedural states (principal); Z87.81 Personal history of (healed) traumatic fracture; S82.401A Unspecified fracture of shaft of right fibula, initial encounter for closed fracture; W18.30XA Fall on same level, unspecified, initial encounter | CPT/HCPCS: 73610 ==

== ENCOUNTER 2022-11-22 15:41 | Outpatient (CLI) | payer MEDICAID, SELFPAY | END 2022-11-22 15:42 | disposition home or self-care (01) | LOC: SPT 15:41 | PROVIDERS: PCP Family Medicine Adult Medicine; Visit Provider Podiatrist Foot & Ankle Surgery | DX: Z46.89 Encounter for fitting and adjustment of other specified devices (principal); S82.401D Unspecified fracture of shaft of right fibula, subsequent encounter for closed fracture with routine healing; X58.XXXD Exposure to other specified factors, subsequent encounter; Z98.890 Other specified postprocedural states | CPT/HCPCS: 97760; 99024; L1902 ==